=== PATIENT | female | born 1940 | race African-American/Black ===

== ENCOUNTER 2020-03-18 08:26 | Emergency (ER) | payer OTHER, SELFPAY ==
--- NOTE | ~2020-03-18 | XR_ITS ---
EXAMINATION: XR soft tissue neck EXAM DATE: 03/18/2020 09:18 INDICATION: Dislodged tracheostomy tube. TECHNIQUE: Soft tissue neck frontal and lateral projections. There is no prior study for comparison. FINDINGS: Tracheostomy tube appears to be in expected position (reportedly this is the outer cannula and patient could not get the insert in this morning). There is opacity of the airway above the trac heostomy tube. Lung apices are clear. Oropharyngeal airway is unremarkable. Probable small carotid ca lcifications. IMPRESSION: Tracheostomy tube appears in expected position. I discussed this with Bar Marquez DO at 03/18/2020 09:24 ENGINEER FIRST ASSISTANT. Reviewed, dictated and finalized at location A. NEER FIRST ASSISTANT
[2020-03-18 08:27] VITALS: BP 188/99; PULSE 90; RESP 18; TEMP 36.7; O2SAT 100
--- NOTE | 2020-03-18 08:49 | ED.GENADULT ---
HPI - General Adult General Chief complaint: Unspecified Stated complaint: Trach dislodged Source: patient Mode of arrival: ambulatory Limitations: no limitations History of Present Illness HPI narrative: A 79-year-old female presents to the emergency department with complaints of a dislodged trach. Patient states she was trying to clean it this morning when her trach became dislodged. Patient was not able to get it back and became panicked and came to the emergency department. She states that there was some bleeding associated with this. At this time patient is resting comfortably and states that she is breathing easily without her trach in. Related Data Home Medications Medication Instructions Recorded Confirmed aspirin 325 mg tablet 325 mg PO DAILY 01/12/19 12/28/19 ergocalciferol (vitamin D2) 1,250 50,000 unit PO MONTHLY 01/12/19 12/28/19 mcg (50,000 unit) capsule loratadine 10 mg tablet 10 mg PO DAILY 01/12/19 12/28/19 potassium chloride 20 mEq oral 20 meq PO BID 01/12/19 12/28/19 packet ticagrelor 90 mg tablet 90 mg PO Q12H 01/12/19 12/28/19 ferrous sulfate 325 mg (65 mg 325 mg PO BID 12/28/19 12/28/19 iron) tablet Allergies Allergy/AdvReac Type Severity Reaction Status Date / Time hydrochlorothiazide Allergy Severe face Verified 03/18/20 08:44 swelling Review of Systems Review of Systems: Narrative: CONSTITUTIONAL: Denies fever, chills, or sweats. EYES: Denies visual changes, redness, or discharge. ENT: Denies rhinorrhea, congestion, sore throat, or otalgia. CARDIOVASCULAR: Denies chest pain, palpitations, or edema. RESPIRATORY: Denies cough or dyspnea. GASTROINTESTINAL: Denies abdominal pain, nausea, vomiting, or diarrhea. GENITOURINARY: Denies dysuria or hematuria. SKIN: Denies rash or itching. MUSCULOSKELETAL: Denies back pain, joint pain, or myalgia. NEUROLOGIC: Denies headache, numbness, dizziness, or weakness. PSYCHIATRIC: Denies anxiety or depression. [facility] Past Medical History Medical History (Updated 03/18/20 @ 11:29 by Bar Marquez DO) Anxiety Arthritis Breast cancer Colon cancer Dementia HTN (hypertension) Myocardial infarction Tracheostomy tube present Surgical History Surgical History H/O left mastectomy H/O: hysterectomy Family History Family History Sibling Diabetes mellitus Patient's sister is in good health Family history of diabetes mellitus in first degree relative Mother Family history of malignant neoplasm of breast in first degree relative Other Family history of arthritis Hypertension Social History Social History Smoking status: Former smoker Smoking end date: 02/23/16 Alcohol intake: never Gender identity (if verbalized by the patient): Female Exam Narrative: Exam Narrative: GENERAL: Well-appearing, well-nourished, and in no acute distress. HEAD: Normocephalic, atraumatic. EYES: PERRLA and EOMI. ENT: Nares clear, no rhinorrhea or epistaxis. Mucous membranes moist. Oropharynx without tonsillar hypertrophy exudate or other lesions. Bilateral TMs pearly aviles nonbulging NECK: Supple. No adenopathy or masses. No carotid bruits or JVD. Tracheostoma with scant blood. CHEST: Clear to auscultation. No respiratory distress. No wheezes rales or rhonchi HEART: Regular rate and rhythm. No murmur heard. Normal peripheral pulses. ABDOMEN: Soft, nontender, nondistended, normal active bowel sounds. EXTREMITIES: Normal range of motion. No edema. SKIN: Warm, dry, no rash. NEURO: No focal deficits. Alert and oriented x3. PSYCH: Normal mood and affect. Course Reevaluation(s) Reevaluation #1: 2 attempts were made to replace the patient's trach tube. She instantly started coughing and became extremely anxious. Both times were unsuccessful. We will administer an anxiolytic and reattempt.
--- NOTE | 2020-03-18 09:45 | PC.NURSE ---
Dr. Marquez having trouble getting trach back in. Pt becoming very anxious. VORB for 2 mg versed to be given before next attempt
[2020-03-18] MEDS: MIDAZOLAM HCL (*CRX) 2 MG/2 ML VIAL IM (09:55)
[2020-03-18 10:46] VITALS: BP 184/86; PULSE 85; RESP 18; O2SAT 98
--- NOTE | 2020-03-18 10:46 | PC.NURSE ---
Dr. Marquez attempted to replace trach a few times with no success. calling susanna for consult
--- NOTE | 2020-03-18 11:36 | PC.NURSE ---
Pt to be transferred to [facility]
--- NOTE | 2020-03-18 11:43 | PC.NURSE ---
called [facility] for transportation. company declined. contacted [facility] accepted with an eta of 1200
--- NOTE | 2020-03-18 12:01 | PC.NURSE ---
[facility] has arrived
[2020-03-18 12:06] VITALS: BP 183/81; PULSE 87; RESP 18; O2SAT 99
== END 2020-03-18 12:08 | disposition short-term general hospital (02) ==
PROVIDERS: Emergency Provider Emergency Medicine; PCP Internal Medicine
DX: Z43.0 Encounter for attention to tracheostomy (principal); F41.9 Anxiety disorder, unspecified; M19.90 Unspecified osteoarthritis, unspecified site; Z85.3 Personal history of malignant neoplasm of breast; Z85.038 Personal history of other malignant neoplasm of large intestine; F03.90 Unspecified dementia, unspecified severity, without behavioral disturbance, psychotic disturbance, mood disturbance, and anxiety; I10 Essential (primary) hypertension; I25.2 Old myocardial infarction; Z90.12 Acquired absence of left breast and nipple; Z87.891 Personal history of nicotine dependence; Z79.82 Long term (current) use of aspirin
CPT/HCPCS: 70360; 96372; 99285; A9270; J2250

== ENCOUNTER 2020-06-19 13:58 | Emergency (ER) | payer OTHER, SELFPAY ==
[2020-06-19 14:00] VITALS: PULSE 80; O2SAT 99
[2020-06-19 14:30] VITALS: BP 135/41; PULSE 75; RESP 13; O2SAT 100
[2020-06-19 14:32] VITALS: BP 161/80; PULSE 89; RESP 20; TEMP 36.7; O2SAT 99
--- NOTE | 2020-06-19 14:52 | PC.NURSE ---
noticed pt fully dressed and walking with friend towards the waiting room. The friend states they are leaving and going to [facility]. The pt is shaking her head yes as they leave. Friend states we're outta here, going to [facility] to get a new trach placed .
--- NOTE | 2020-06-19 17:10 | ED.SOB ---
HPI - SOB/Dyspnea General Chief Complaint: Shortness of Breath/Dyspnea Stated Complaint: difficulty breathing, trach Time Seen by Provider: 06/19/20 14:09 Source: patient and family Mode of arrival: wheelchair Limitations: other (language, nonverbal due to trach) History of Present Illness HPI Narrative: This is a 79 year old female with history of tracheostomy who presents for evaluation of clogged trach. Patient presented via car with a family friend. She states her trach has been getting clogged. She has been attempted to suction at home but it continues to get clogged. They were riding in the car prior to arrival and she states it suddenly clogged . She denies cough, chest pain or sob. Her family member does report that she is panicking. Patient states she normally goes to [place] but [place] is the closest facility. She states her ENT doctor at [place] is due to change her trach. She states she has a complicated history with her trach and that no one should try to change it out. Patient denies fever or chills. Related Data Home Medications Medication Instructions Recorded Confirmed aspirin 325 mg tablet 325 mg PO DAILY 01/12/19 04/11/20 ergocalciferol (vitamin D2) 1,250 50,000 unit PO MONTHLY 01/12/19 04/11/20 mcg (50,000 unit) capsule loratadine 10 mg tablet 10 mg PO DAILY 01/12/19 04/11/20 potassium chloride 20 mEq oral 20 meq PO BID 01/12/19 04/11/20 packet ticagrelor 90 mg tablet 90 mg PO Q12H 01/12/19 04/11/20 ferrous sulfate 325 mg (65 mg 325 mg PO BID 12/28/19 04/11/20 iron) tablet Allergies Allergy/AdvReac Type Severity Reaction Status Date / Time hydrochlorothiazide Allergy Severe face Verified 04/11/20 10:05 swelling lisinopril Allergy Unknown Verified 06/19/20 14:34 Review of Systems Review of Systems: All systems reviewed & are unremarkable except as noted in HPI and below PMFSH Past Medical History Medical History (Updated 06/19/20 @ 17:16 by Azeb Resendez MD) Anxiety Arthritis Breast cancer Colon cancer Dementia HTN (hypertension) Myocardial infarction Tracheostomy tube present Surgical History Surgical History H/O left mastectomy H/O: hysterectomy Family History Family History Sibling Diabetes mellitus Patient's sister is in good health Family history of diabetes mellitus in first degree relative Mother Family history of malignant neoplasm of breast in first degree relative Other Family history of arthritis Hypertension Social History Social History Smoking end date: 02/23/16 Alcohol intake: never Gender identity (if verbalized by the patient): Female Exam Const: General: no acute distress and alert Orientation/consciousness: patient oriented x3 Eyes: EOM: EOMs intact bilaterally Neck: Other: trach in place with out inner cannula. Resp: Effort & Inspection: normal respiratory effort and no retractions Auscultation: clear to auscultation bilaterally Cardio: Rate: regular rate Rhythm: regular rhythm Heart sounds: no murmurs GI: GI Palp: Yes Soft to palpation, No Tenderness to palpation present (GI) and No Guarding due to palpation present (GI) Auscultation: normal bowel sounds Extrem: General: no pedal edema Psych: Mental Status: mental status grossly normal Affect: normal affect Course Reevaluation(s) Reevaluation #1: Nursing staff noticed patient walked out of ER. Patient previous to this stated that she felt better and she wanted to go home. She was agreeable to allow at least an xray but she left before anything else. Date: 06/19/20 Time: 15:00 Vital Signs Vital signs: Vital Signs Pulse Rate 80 06/19/20 14:00 Pulse Oximetry 99 06/19/20 14:00 Temperature 98.1 F 06/19/20 14:32 Pulse Rate 89 06/19/20 14:32 Respiratory Rat
== END 2020-06-19 14:55 | disposition left against medical advice (07) ==
PROVIDERS: Emergency Provider General Practice; PCP Internal Medicine
DX: J95.03 Malfunction of tracheostomy stoma (principal); M19.90 Unspecified osteoarthritis, unspecified site; F03.90 Unspecified dementia, unspecified severity, without behavioral disturbance, psychotic disturbance, mood disturbance, and anxiety; I10 Essential (primary) hypertension; I25.2 Old myocardial infarction; Z90.12 Acquired absence of left breast and nipple; Z85.3 Personal history of malignant neoplasm of breast; Z85.038 Personal history of other malignant neoplasm of large intestine; Z87.891 Personal history of nicotine dependence; Z79.82 Long term (current) use of aspirin
CPT/HCPCS: 99283

== ENCOUNTER 2020-07-05 14:27 | Outpatient (CLI) | payer OTHER, SELFPAY ==
--- NOTE | ~2020-07-05 | US_ITS ---
EXAMINATION: US renal BI DATE: 07/05/2020 14:51 INDICATION: Abnormal renal function tests TECHNIQUE: Multiple ultrasound grayscale images of the kidneys were obtained. COMPARISON: CT abdomen and pelvis dated 01/12/2016 FINDINGS: The right kidney measures 8.6 x 5.0 x 4.5 cm. The left kidney measures 8.5 x 4.0 x 3.7 cm. The kidney s demonstrate normal echogenicity. Again seen is mild cortical scarring resulting in a mildly lobular contour to the lower pole of the left kidney. There is no hydronephrosis in either kidney. No stone s identified. The bladder is normal. IMPRESSION: 1. Chronic mild cortical scarring at the lower pole of the left kidney. Otherwise normal kidneys wit h no hydronephrosis. Reviewed, dictated and finalized at location A. IMPRESSION: 1. Chronic mild cortical scarring at the lower pole of the left kidney. Otherw ise normal kidneys with no hydronephrosis.
== END 2020-07-05 14:28 ==
PROVIDERS: PCP Internal Medicine; Visit Provider Internal Medicine Nephrology
DX: R94.4 Abnormal results of kidney function studies (principal); R91.8 Other nonspecific abnormal finding of lung field
CPT/HCPCS: 76775

== ENCOUNTER → 2021-10-15 12:41 | Outpatient (CLI) | payer OTHER, SELFPAY ==
--- NOTE | ~2021-10-15 | MM_ITS ---
EXAMINATION: MM screening rafia RT w vernon HISTORY: Screening TECHNIQUE: Craniocaudal and mediolateral oblique 3-D tomosynthesis images were obtained and synthetic 2-D images were generated. CAD analysis was submitted and interpreted. COMPARISON: Comparison to multiple prior studies sequentially, with oldest reviewed study dated 03/19. BREAST PARENCHYMAL COMPOSITION: Breast composed of scattered areas of fibroglandular density FINDINGS: There is enlargement of a mass in the upper outer quadrant of the right breast posteriorly with a tubular appearance. There are no suspicious calcifications or architectural distortion. IMPRESSION: 1. Enlarging right breast mass, upper outer quadrant. 2. Additional mammographic views and possible breast ultrasound are recommended. BI-RADS Category 0: Incomplete: Needs additional imaging evaluation. Reviewed, dictated and finalized at location A. IMPRESSION: 1. Enlarging right breast mass, upper outer quadrant. 2. Additional mammographic views and possible breast ultrasound are recommended . BI-RADS Category 0: Incomplete: Needs additional imaging evaluation.
== END ==
PROVIDERS: PCP Internal Medicine; Visit Provider Internal Medicine
DX: Z12.31 Encounter for screening mammogram for malignant neoplasm of breast (principal); R92.8 Other abnormal and inconclusive findings on diagnostic imaging of breast
CPT/HCPCS: 77063; 77067

== ENCOUNTER 2021-11-07 15:55 | Emergency (ER) | payer OTHER, SELFPAY ==
--- NOTE | 2021-11-07 16:10 | PC.NURSE ---
After further discussing the patient's concerns after initially registering the patient the patient was seeking a mammogram. Her family member who is with her states that she has a history of breast CA and found a lump in her breast. [facility] appointment and wasn't able to be rescheduled until November. After confirming with Imaging that the hospital does not offer mammogram services it was communicated to the patient and her family member. They are going to call the PCP and possibly come back for evaluation at a later time.
== END 2021-11-07 16:10 | disposition left against medical advice (07) ==
LOC: ANHED 16:20
PROVIDERS: PCP Internal Medicine
DX: Z53.21 Procedure and treatment not carried out due to patient leaving prior to being seen by health care provider (principal)
CPT/HCPCS: 99199

== ENCOUNTER 2021-11-14 13:21 | Outpatient (CLI) | payer OTHER, SELFPAY ==
--- NOTE | ~2021-11-14 | MMUS_ITS ---
EXAMINATION: MM diagnostic rafia RT w vernon, US breast RT limited HISTORY: Right breast mass on screening mammogram TECHNIQUE: Additional 3-D tomosynthesis images of the right breast were performed and synthetic 2-D i mages were generated. CAD analysis was submitted and interpreted. High resolution limited right breas t ultrasound was performed. COMPARISON: 10/15/2021, 11/05/2016, 03/19/2016 FINDINGS: MAMMOGRAPHIC FINDINGS: There is a 2.6 x 0.8 cm circumscribed mass with gentle lobulations at the 12:00 location in the poste rior third of the upper breast at the 12:00 location 10 cm from the nipple. No suspicious calcificati on or architectural distortion are identified. The mass has increased in size since the comparison ex aminations. ULTRASOUND: There is a 1.4 x 1.0 x 0.5 cm oval, circumscribed, parallel, hypoechoic mass with no posterior featur es or internal vascularity at the 12:00 location 10 cm from the nipple. IMPRESSION: 1. Indeterminate right breast mass. 2. Ultrasound-guided biopsy is recommended. BI-RADS category 4, suspicious findings. Reviewed, dictated and finalized at location A. IMPRESSION: 1. Indeterminate right breast mass. 2. Ultrasound-guided biopsy is recommended. BI-RADS category 4, suspicious findings.
== END 2021-11-14 13:22 | disposition home or self-care (01) ==
LOC: ANHIMG 13:22
PROVIDERS: PCP Internal Medicine; Visit Provider Internal Medicine
DX: N63.0 Unspecified lump in unspecified breast (principal); R92.8 Other abnormal and inconclusive findings on diagnostic imaging of breast
CPT/HCPCS: 76642; 77061; 77065; G0279

== ENCOUNTER 2021-12-04 09:32 | Outpatient (CLI) | payer OTHER, SELFPAY ==
--- NOTE | ~2021-12-04 | MMUS_ITS ---
US breast biopsy RT w image, MM post biopsy invasive RT 12/04/2021 10:27 (accession [id number]), 12/04/2021 10:44 (accession [id number]) EXAMINATION: US GUIDED NEEDLE BIOPSY WITH VACUUM ASSISTANCE DATE: 12/04/2021 10:47 CDT INDICATION: Right breast mass seen on prior examination Ultrasound-guided core biopsy is requested t o evaluate for malignancy. TECHNIQUE AND FINDINGS: The risks and potential benefits of the procedure were discussed with the patient, and written inform ed consent was obtained. After sterile preparation of the right breast, 1% lidocaine was utilized fo r local anesthesia. 1% lidocaine with epinephrine was used for deep anesthesia. A 10G vacuum-assisted biopsy gun needle was advanced through to the outer edge of the region of inter est from a superior approach utilizing sonographic guidance. A total of 5 tissue core samples were o btained through the lesion. An Inrad tissue marker clip was then placed at the biopsy site. Hemostas is was achieved. The patient tolerated procedure well and there was no evidence of immediate complication. The patien t was given verbal instructions partly is from the department. Right breast mammograms to document t issue marker clip placement. The tissue samples were submitted to surgical pathology for histologic a nalysis. IMPRESSION: 1. Successful ultrasound-guided vacuum-assisted biopsy of right breast mass with tissue marker place ment. Please refer to pathology report for histologic analysis. Reviewed, dictated and finalized at location A. IMPRESSION: 1. Successful ultrasound-guided vacuum-assisted biopsy of right breast mass wi th tissue marker placement. Please refer to pathology report for histologic charlie lysis.
== END 2021-12-04 09:33 | disposition home or self-care (01) ==
LOC: ANHIMG 09:38
PROVIDERS: PCP Internal Medicine; Visit Provider Internal Medicine
DX: N63.0 Unspecified lump in unspecified breast (principal); R92.8 Other abnormal and inconclusive findings on diagnostic imaging of breast
CPT/HCPCS: 19083; 88305; A4648

== ENCOUNTER 2022-08-06 14:55 | Outpatient (CLI) | payer OTHER, SELFPAY ==
--- NOTE | ~2022-08-06 | XR_ITS ---
XR knee LT 3V 08/06/2022 15:10 Indication: Left knee pain Procedure: 3 views left knee Comparison: No prior studies for comparison. Findings: No fracture, subluxation location. There is moderate tricompartment osteoarthritis. No join t effusion. No foreign bodies. Osteopenia. 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 Reviewed, dictated and finalized at location L. 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
== END 2022-08-06 14:56 ==
LOC: MICIMG 14:56
PROVIDERS: PCP Family Medicine; Visit Provider Family Medicine
DX: M17.12 Unilateral primary osteoarthritis, left knee (principal)
CPT/HCPCS: 73562

== ENCOUNTER 2023-02-08 09:04 | Emergency (ER) | payer OTHER, SELFPAY ==
--- NOTE | ~2023-02-08 | CT_ITS ---
CT head without contrast Indication: Head injury Technique: Serial scans were obtained through the brain without the administration of contrast. Dose reduction technique was used on this scan by utilizing automated exposure control and iterative recon struction technique. The dose-length product (DLP) was 605.33 mGy-cm. Findings: There is no evidence of intracranial hemorrhage, mass lesion, or acute infarct. The ventri cles and subarachnoid spaces are dilated, consistent with mild atrophy. Low attenuation regions are seen within the periventricular white matter bilaterally, likely representing changes from chronic mi crovascular ischemic disease. There is no evidence of edema, mass effect or midline shift. The visu alized paranasal sinuses and mastoid air cells are clear. There is focal soft tissue swelling in the left frontal scalp. Impression: No intracranial hemorrhage, mass, or acute infarct. Atrophy and chronic white matter changes, as above. Focal soft tissue swelling in the left frontal scalp. Reviewed, dictated and finalized at [facility]. FINISHER Impression: No intracranial hemorrhage, mass, or acute infarct. Atrophy and chronic white matter changes, as above. Focal soft tissue swelling in the left frontal scalp.
[2023-02-08 09:06] VITALS: BP 118/61; PULSE 54; RESP 16; TEMP 36.9; O2SAT 100
--- NOTE | 2023-02-08 09:32 | ED.FALL ---
HPI - Fall General Chief Complaint: Fall Stated Complaint: FELL DOWN 2 STEPS, HI Time Seen by Provider: 02/08/23 09:07 History of Present Illness HPI Narrative: patient is an 82-year-old female who presents ER status post fall. She tripped over her dog and fell down 2 steps. She struck her head on the ground. No LOC. She is not on any blood thinners. History is somewhat limited due to her tracheostomy. She moves all extremities additional complaints. There is a small laceration to the left for him. Related Data Home Medications Medication Instructions Recorded Confirmed aspirin 325 mg tablet 325 mg PO DAILY 01/12/19 12/22/22 loratadine 10 mg tablet 10 mg PO DAILY 01/12/19 12/22/22 potassium chloride 20 mEq oral 20 meq PO BID 01/12/19 12/22/22 packet (Klor-Con) ticagrelor 90 mg tablet (Brilinta) 90 mg PO Q12H 01/12/19 12/22/22 ferrous sulfate 325 mg (65 mg 325 mg PO BID 12/28/19 12/22/22 iron) tablet ergocalciferol (vitamin D2) 1,250 1,250 mcg PO MONTHLY 03/26/22 12/22/22 mcg (50,000 unit) capsule Allergies Allergy/AdvReac Type Severity Reaction Status Date / Time hydrochlorothiazide Allergy Severe face Verified 02/08/23 09:19 swelling lisinopril Allergy Unknown Verified 02/08/23 09:19 Review of Systems Review of Systems: ROS unobtainable: Yes unobtainable due to medical condition PMFSH Past Medical History Medical History (Updated 02/08/23 @ 09:48 by Wade Saldivar MD) Anxiety Arthritis Breast cancer Colon cancer Dementia H/O cardiac arrest HTN (hypertension) Myocardial infarction STEMI (ST elevation myocardial infarction) Tracheostomy tube present Surgical History Surgical History H/O left mastectomy H/O: hysterectomy Family History Family History Sibling Diabetes mellitus Patient's sister is in good health Family history of diabetes mellitus in first degree relative Mother Family history of malignant neoplasm of breast in first degree relative Other Family history of arthritis Hypertension Social History Social History (Reviewed 01/26/23 @ 14:36 by STEVEN Gonzales Smoking packs per day: 2 Smoking cigarettes per day: 40.0 Years smoked: 30 Smoking pack-years: 60.00 Smoking status: Former smoker Tobacco type: cigarettes Smoking end date: 02/23/16 Alcohol intake: never Substance use: never Substance use type: does not use Gender identity (if verbalized by the patient): Female Exam Narrative: GENERAL: Well-appearing, well-nourished, and in no acute distress. HEAD: Normocephalic, Soft tissue swelling left forehead with 1 cm laceration. EYES: PERRL and EOMI. ENT: Mucous membranes moist. NECK: Supple. Tracheostomy present CHEST: Clear to auscultation. No respiratory distress. HEART: Regular rate and rhythm. Normal peripheral pulses. EXTREMITIES: Normal range of motion. No edema. NEURO: awake alert and acting appropriately. Course Vital Signs Vital signs: Vital Signs Temperature 98.4 F 02/08/23 09:06 Pulse Rate 54 L 02/08/23 09:06 Respiratory Rate 16 02/08/23 09:06 Blood Pressure 118/61 02/08/23 09:06 Pulse Oximetry 100 02/08/23 09:06 Oxygen Delivery Room Air 02/08/23 09:06 Temperature 98.4 F 02/08/23 09:06 Pulse Rate 54 L 02/08/23 09:06 Respiratory Rate 16 02/08/23 09:06 Blood Pressure 118/61 02/08/23 09:06 Pulse Oximetry 100 02/08/23 09:06 Oxygen Delivery Room Air 02/08/23 09:06 Procedures Laceration Laceration 1: Date: 02/08/23 Time: 09:45 Site: face Side (If applicable): left Size (cm): 1 Description: irregular Depth: simple, single layer Local Anesthetic: lidocaine 1% and with epi Amount of anesthesia used (mL): 1 Pre-repair: irrigated ====== Skin Level ====== Skin la
[2023-02-08 10:07] VITALS: BP 125/47; PULSE 53; RESP 18; O2SAT 100
== END 2023-02-08 10:14 | disposition home or self-care (01) ==
LOC: ANHED 10:01
PROVIDERS: Emergency Provider Emergency Medicine; PCP Family Medicine
DX: S01.81XA Laceration without foreign body of other part of head, initial encounter (principal); F41.9 Anxiety disorder, unspecified; M19.90 Unspecified osteoarthritis, unspecified site; I10 Essential (primary) hypertension; I25.2 Old myocardial infarction; F03.90 Unspecified dementia, unspecified severity, without behavioral disturbance, psychotic disturbance, mood disturbance, and anxiety; Z85.3 Personal history of malignant neoplasm of breast; W10.9XXA Fall (on) (from) unspecified stairs and steps, initial encounter
CPT/HCPCS: 12011; 70450; 99284

== ENCOUNTER 2024-04-22 03:19 | Emergency (ER) | payer OTHER, SELFPAY ==
[2024-04-22 03:18] VITALS: BP 127/77; PULSE 90; RESP 18; TEMP 36.7; O2SAT 100
--- NOTE | 2024-04-22 03:46 | ED.FALL ---
HPI - Fall General Chief Complaint: Fall Stated Complaint: GLF. right leg pain Time Seen by Provider: 04/22/24 03:27 History of Present Illness HPI Narrative: 83-year-old female with a past medical history including colon carcinoma, renal cell carcinoma, subglottic stenosis status tracheostomy. Patient presents from her detention facility for not witnessed fall. Patient is not ambulatory by herself and was found on the ground by staff members today. She was not any apparent distress, unclear how she fell, she is alert oriented at baseline but only communicates and yes or no head not and does not speak. She is awake and alert, nodding yes or no to all appropriate questions. Not any blood thinner medications per penitentiary report. No loss of consciousness reported by patient, no signs of evidence or trauma. She is complaining of pain in her head and right ankle pain. No obvious injury. She normally wears 8L blow-by oxygen from her tracheostomy. Related Data Home Medications ?Medication ?Instructions ?Recorded ?Confirmed ?Last Taken ?Type aspirin 325 mg tablet 325 mg PO DAILY 01/12/19 12/22/22 Unknown History loratadine 10 mg tablet 10 mg PO DAILY 01/12/19 12/22/22 Unknown History potassium chloride 20 mEq oral 20 meq PO BID 01/12/19 12/22/22 Unknown History packet (Klor-Con) ticagrelor 90 mg tablet (Brilinta) 90 mg PO Q12H 01/12/19 12/22/22 Unknown History ferrous sulfate 325 mg (65 mg 325 mg PO BID 12/28/19 12/22/22 Unknown History iron) tablet ergocalciferol (vitamin D2) 1,250 1,250 mcg PO MONTHLY 03/26/22 12/22/22 Unknown History mcg (50,000 unit) capsule metoprolol succinate 50 mg mg PO 08/12/23 Unknown History tablet,extended release 24 hr Allergies Allergy/AdvReac Type Severity Reaction Status Date / Time hydrochlorothiazide Allergy Severe face Verified 04/22/24 03:25 swelling chlorhexidine Allergy Intermediate Unknown Verified 04/22/24 03:25 lisinopril Allergy Unknown Verified 04/22/24 03:25 Review of Systems Review of Systems: As reviewed above [facility] Past Medical History Medical History Tracheostomy tube present Breast cancer Anxiety Arthritis Colon cancer Myocardial infarction HTN (hypertension) Dementia H/O cardiac arrest STEMI (ST elevation myocardial infarction) Surgical History Surgical History H/O: hysterectomy H/O left mastectomy Family History Family History Sibling Diabetes mellitus Patient's sister is in good health Family history of diabetes mellitus in first degree relative Mother Family history of malignant neoplasm of breast in first degree relative Other Family history of arthritis Hypertension Social History Social History Smoking packs per day: 2 Smoking cigarettes per day: 40.0 Years smoked: 30 Smoking pack-years: 60.00 Smoking status: Former smoker Tobacco type: cigarettes Smoking end date: 02/23/16 Alcohol intake: never Substance use: never Substance use type: does not use Gender identity (if verbalized by the patient): Female Exam Narrative: GENERAL: Elderly, thin, frail, not in any acute distress HEAD: [Normocephalic, atraumatic.] EYES: [PERRLA and EOMI.] ENT: Tracheostomy is clean and dry, blow-by oxygen in place NECK: Supple. CHEST: [Clear to auscultation. No respiratory distress.] HEART: [Regular rate and rhythm]. No murmur heard. [Normal peripheral pulses.] ABDOMEN: [Soft, nondistended], [nontender], [No rigidity or guarding] EXTREMITIES: Able to wiggle the toes, move both upper extremities equally. Does not ambulate normally. Full range of motion of the ankle. No tenderness with palpation. No cervical, thoracic or lumbar spinal tenderness or palpable defects. No obvious injury to the head SKIN: Warm, dry, no rash. NEURO: [No focal deficits]. Alert and oriented [x3.] PSYCH: [Normal mood and affect.] Course Vital Signs Vital signs: Vital Signs Temperature 36.7 C 04/22/24 03:18 Pulse Rate 90 04/22/24 03:18 Respiratory Rate 18 04/22/24 03:18 Blood Pressure 127/77 04/22/24 03:18 Pulse Oximetry 100 04/22/24 03:18 Oxygen Delivery Trach Collar 04/22/24 03:18 Oxygen Flow Rate 8 04/22/24 03:18 Temperature 36.7 C 04/22/24 03:18 Pulse Rate 90 04/22/24 03:18 Respiratory Rate 18 04/22/24 03:18 Blood Pressure 127/77 04/22/24 03:18 Pulse Oximetry 100 04/22/24 03:18 Oxygen Delivery Trach Collar 04/22/24 03:18 Oxygen Flow Rate 8 04/22/24 03:18 MDM - Fall MDM Narrative Medical decision making narrative: 83-year-old female presenting from her detention facility for an unwitnessed fall. She nods yes and no to answer questions, does not speak. She has a history of subglottic stenosis with a tracheostomy in uses 8 L normally. She has normal vital signs, no tachycardia, fever, hypoxia. No tachypnea. She has no evidence of trauma but does note that she did hit her head, no blood thinner use. She also nod yes to questions about pain in her ankle. X-rays were obtained a right ankle and CT of the cervical spine CT of the head was obtained given her age and risk factors. She is not requesting any pain medications at this time. She expressed desire to go back to her facility. CT images were ordered and patient could be safely discharged if there are no remarkable findings. CT head shows no evidence for of any acute intracranial abnormality. CT cervical spine shows no evidence of any fractures or traumatic subluxations. No high-grade stenosis. Ankle x-ray shows a heel spur but no acute traumatic injury per my interpretation. Patient has been hemodynamically stable here and without complaint, safe for discharge back to facility. Medical Records Attestation: I reviewed the patient's medical records. Imaging Data Attestation: I personally reviewed and interpreted this imaging study as follows: My impression: No acute traumatic findings Discharge Plan Discharge Clinical Impression: Unwitnessed fall, History of tracheal stenosis Patient Disposition: NH Longterm/Asst Living Condition: Stable Instructions: Antibiotic Form Additional Instructions: Follow-up with your regular doctor. Return with any new concerns. Your CT scan and x-ray showed no traumatic injuries. Patient Language: [place] Prescriptions: No Action metoprolol succinate 50 mg tablet extended release 24 hr PO ferrous sulfate 325 mg (65 mg iron) tablet 325 mg PO BID ergocalciferol (vitamin D2) 1,250 mcg (50,000 unit) capsule 1,250 mcg PO MONTHLY aspirin 325 mg tablet 325 mg PO DAILY Brilinta 90 mg tablet 90 mg PO Q12H potassium chloride [Klor-Con] 20 mEq packet 20 meq PO BID loratadine 10 mg tablet 10 mg PO DAILY memantine 5 mg tablet See Rx Instructions .ROUTE .COMPLEX Qty: 60 1RF Dose Instruction: TAKE 1 TABLET BY MOUTH TWICE A DAY Rx Instructions: TAKE 1 TABLET BY MOUTH TWICE A DAY metoprolol tartrate 25 mg tablet 25 mg PO Q12H Qty: 180 0RF dicyclomine 20 mg tablet See Rx Instructions .ROUTE .COMPLEX Qty: 360 1RF Dose Instruction: TAKE ONE TABLET BY MOUTH FOUR TIMES A DAY Rx Instructions: TAKE ONE TABLET BY MOUTH FOUR TIMES A DAY atorvastatin 40 mg tablet 40 mg PO DAILY Qty: 90 1RF losartan 50 mg tablet See Rx Instructions .ROUTE .COMPLEX Qty: 90 0RF Dose Instruction: TAKE 1 TABLET BY MOUTH EVERY DAY Rx Instructions: TAKE 1 TABLET BY MOUTH EVERY DAY buspirone 15 mg tablet 15 mg PO BID Qty: 180 1RF amlodipine 10 mg tablet See Rx Instructions .ROUTE .COMPLEX Qty: 90 1RF Dose Instruction: TAKE 1 TABLET BY MOUTH EVERY DAY Rx Instructions: TAKE 1 TABLET BY MOUTH EVERY DAY donepezil 10 mg tablet See Rx Instructions .ROUTE .COMPLEX Qty: 90 1RF Dose Instruction: TAKE 1 TABLET BY MOUTH EVERY DAY Rx Instructions: TAKE 1 TABLET BY MOUTH EVERY DAY hydrocodone-acetaminophen 10-325 mg tablet 1 tablet PO QID PRN (Reason: pain) Qty: 120 0RF Follow-up/Referrals: Leon Leslie MD [Primary Care Provider] - Stand Alone Forms: Senior Living Discharge Time of Disposition: 05:44
[2024-04-22 05:47] VITALS: BP 134/72; PULSE 90; RESP 16; TEMP 36.6; O2SAT 98
[2024-04-22 07:46] VITALS: BP 138/64; PULSE 87; RESP 20; O2SAT 99
[2024-04-22 12:35] VITALS: BP 119/90; PULSE 95; RESP 21; O2SAT 100
--- NOTE | 2024-04-22 16:25 | PCRCNOTE ---
RT called to ED to place patient's trach back in. Patient had thick secretions stuck in her trach cannula that resulted in patient coughing and trach becoming dislodged. She has a cuffless trach that has no inner cannula. She communicates by writing on a communication board and states she has had her trach for a long time and sometimes has it out and just has oxygen on over her stoma. Area around stoma is crusty and RT attempted to clean it but didn't want it to bleed so only some of the scabs came off. Trach cleaned with sterile water. After RT placed trach back in, patient was suctioned and patient produced thick white secretions. Patient shakes her head yes that she feels much better. RN and Dr. Saldivar notified that trach is back in and patient is stable.
--- NOTE | 2024-04-22 18:02 | PC.NURSE ---
1615: walked into the patients room to find her trach dislodged, patient in no respiratory distress, and o2 saturations 100% with o2 collar in place. patient states that it happens sometimes. respiratory called immediately, ERP at bedside along with meteorologist in charge
--- NOTE | 2024-04-22 18:03 | PC.NURSE ---
made attempt to call family members to let them know that she was transported back to her facility, no one answered. will attempt to call again. made attempt to call facility to let them know the patient was being transported. no answer. report called by prior nurse.
== END 2024-04-22 18:01 ==
PROVIDERS: Emergency Provider Student in an Organized Health Care Education/Training Program; PCP Family Medicine
DX: S99.911A Unspecified injury of right ankle, initial encounter (principal); S09.90XA Unspecified injury of head, initial encounter; J38.6 Stenosis of larynx; Z99.81 Dependence on supplemental oxygen; Z93.0 Tracheostomy status; I25.2 Old myocardial infarction; I10 Essential (primary) hypertension; F03.90 Unspecified dementia, unspecified severity, without behavioral disturbance, psychotic disturbance, mood disturbance, and anxiety; M19.90 Unspecified osteoarthritis, unspecified site; Z85.3 Personal history of malignant neoplasm of breast; Z85.038 Personal history of other malignant neoplasm of large intestine; Z85.528 Personal history of other malignant neoplasm of kidney; Z87.891 Personal history of nicotine dependence; Z90.12 Acquired absence of left breast and nipple; Z90.710 Acquired absence of both cervix and uterus; Z79.02 Long term (current) use of antithrombotics/antiplatelets; Z79.899 Other long term (current) drug therapy; W19.XXXA Unspecified fall, initial encounter; M47.812 Spondylosis without myelopathy or radiculopathy, cervical region; R91.1 Solitary pulmonary nodule; J90 Pleural effusion, not elsewhere classified
CPT/HCPCS: 70450; 72125; 73610; 99284

== ENCOUNTER 2024-05-06 19:56 | Emergency (ER) | payer OTHER, SELFPAY ==
[2024-05-06 20:09] VITALS: BP 156/73; PULSE 80; RESP 15; TEMP 36.7; O2SAT 95
--- NOTE | 2024-05-06 21:11 | ED.GENADULT ---
HPI - General Adult General Chief complaint: Unspecified Stated complaint: dislodged trach Time Seen by Provider: 05/06/24 21:06 Source: RN notes reviewed Mode of arrival: EMS Limitations: physical limitation History of Present Illness HPI narrative: Patient presents from custodial with dislodged trach. It is reported that a piece on the flange was broken and staff at attempted to remove it and super glue it away from the patient's skin but when they attempted to replace it they were unable to. Patient is nonverbal but can communicate by writing. No other complaints. Related Data Home Medications ?Medication ?Instructions ?Recorded ?Confirmed ?Last Taken ?Type aspirin 325 mg tablet 325 mg PO DAILY 01/12/19 12/22/22 Unknown History loratadine 10 mg tablet 10 mg PO DAILY 01/12/19 12/22/22 Unknown History potassium chloride 20 mEq oral 20 meq PO BID 01/12/19 12/22/22 Unknown History packet (Klor-Con) ticagrelor 90 mg tablet (Brilinta) 90 mg PO Q12H 01/12/19 12/22/22 Unknown History ferrous sulfate 325 mg (65 mg 325 mg PO BID 12/28/19 12/22/22 Unknown History iron) tablet ergocalciferol (vitamin D2) 1,250 1,250 mcg PO MONTHLY 03/26/22 12/22/22 Unknown History mcg (50,000 unit) capsule metoprolol succinate 50 mg mg PO 08/12/23 Unknown History tablet,extended release 24 hr Allergies Allergy/AdvReac Type Severity Reaction Status Date / Time hydrochlorothiazide Allergy Severe face Verified 05/06/24 20:57 swelling chlorhexidine Allergy Intermediate Unknown Verified 05/06/24 20:57 lisinopril Allergy Unknown Verified 05/06/24 20:57 [facility] Past Medical History Medical History Acute candidiasis of vulva and vagina Depression, unspecified Chronic combined systolic (congestive) and diastolic (congestive) heart failure Ventricular fibrillation Atherosclerotic heart disease of [place] coronary artery without angina pectoris Alzheimer's disease, unspecified Hyperlipidemia, unspecified Unspecified severe protein-calorie malnutrition Tracheostomy tube present Breast cancer Anxiety Arthritis Colon cancer Myocardial infarction HTN (hypertension) Dementia H/O cardiac arrest STEMI (ST elevation myocardial infarction) Surgical History Surgical History H/O: hysterectomy H/O left mastectomy Family History Family History Sibling Diabetes mellitus Patient's sister is in good health Family history of diabetes mellitus in first degree relative Mother Family history of malignant neoplasm of breast in first degree relative Other Family history of arthritis Hypertension Social History Social History Social History: Full Code per custodial documentation including POLST signed 04/19/24 listing YES CPR Smoking packs per day: 2 Smoking cigarettes per day: 40.0 Years smoked: 30 Smoking pack-years: 60.00 Smoking status: Former smoker Tobacco type: cigarettes Smoking end date: 02/23/16 Alcohol intake: never Substance use: never Substance use type: does not use Living arrangements: custodial Additional living arrangements comments: [facility] [place] Gender identity (if verbalized by the patient): Female Exam Narrative: GENERAL: Well-appearing, well-nourished, and in no acute distress. HEAD: Normocephalic, atraumatic. EYES: Non injected, non icteric ENT: Nares clear, no epistaxis. NECK: Supple. Trach site exposed but with blow by air. Trach site with thick secretions/mucous. CHEST: No respiratory distress. Nonlabored HEART: Regular rate and rhythm. . ABDOMEN: Soft, nondistended. SKIN: Warm, dry, no rash. NEURO: Alert but non verbal PSYCH: Normal mood and affect. Course Vital Signs Vital signs: Vital Signs Temperature 98.1 F 05/06/24 20:09 Pulse Rate 80 05/06/24 20:09 Respiratory Rate 15 05/06/24 20:09 Blood Pressure 156/73 H 05/06/24 20:09 Pulse Oximetry 95 05/06/24 20:09 Oxygen Delivery Trach Collar 05/06/24 20:09 Oxygen Flow Rate 6 05/06/24 20:09 Temperature 98.1 F 05/06/24 20:09 Pulse Rate 68 05/07/24 06:00 Respiratory Rate 16 05/07/24 06:00 Blood Pressure 150/79 H 05/07/24 06:00 Pulse Oximetry 100 05/07/24 06:00 Oxygen Delivery Trach Collar 05/06/24 20:09 Oxygen Flow Rate 6 05/06/24 20:09 Medical Decision Making MDM Narrative Medical decision making narrative: Trach dependent patient presents after it was noted to have a broken flange and staff at custodial attempted to remove it and fix it with super glue away from the patient's body. However, upon attempting to reinsert it, they were unable to. In the emergency department she is afebrile vital signs notable for hypertension. Patient is nonverbal but able to communicate that she uses a trach size 10. Patient not in respiratory distress. She does have thick secretions around site of her trach. These are suctioned using [employer] and trach replaced at bedside by myself and RT. Balloon inflated with 10cc air as per RT recommendations. Secured by RT. Patient does have some coughing fits around the time of insertion under shortly thereafter. RT performs flexible suctioning and patient returns to baseline. She remains resting comfortably, saturating appropriately without further subsequent coughing episodes. Stable for discharge back to facility. Patient pending transportation. Vital Signs Vital Signs: Vital Signs Temperature 98.1 F 05/06/24 20:09 Pulse Rate 80 05/06/24 20:09 Respiratory Rate 15 05/06/24 20:09 Blood Pressure 156/73 H 05/06/24 20:09 Pulse Oximetry 95 05/06/24 20:09 Oxygen Delivery Trach Collar 05/06/24 20:09 Oxygen Flow Rate 6 05/06/24 20:09 Temperature 98.1 F 05/06/24 20:09 Pulse Rate 68 05/07/24 06:00 Respiratory Rate 16 05/07/24 06:00 Blood Pressure 150/79 H 05/07/24 06:00 Pulse Oximetry 100 05/07/24 06:00 Oxygen Delivery Trach Collar 05/06/24 20:09 Oxygen Flow Rate 6 05/06/24 20:09 Discharge Plan Discharge Clinical Impression: Encounter for tracheostomy tube change Patient Disposition: NH Shelter/Asst Living Condition: Stable Instructions: Antibiotic Form, Tracheostomy Care (ED) Additional Instructions: Trach was changed and patient remains stable. Follow-up with patient's primary care physician or facility vp medical. Return to the emergency department with any new or worsening symptoms Patient Language: [place] Citizen Prescriptions: No Action metoprolol succinate 50 mg tablet extended release 24 hr PO ferrous sulfate 325 mg (65 mg iron) tablet 325 mg PO BID ergocalciferol (vitamin D2) 1,250 mcg (50,000 unit) capsule 1,250 mcg PO MONTHLY aspirin 325 mg tablet 325 mg PO DAILY Brilinta 90 mg tablet 90 mg PO Q12H potassium chloride [Klor-Con] 20 mEq packet 20 meq PO BID loratadine 10 mg tablet 10 mg PO DAILY memantine 5 mg tablet See Rx Instructions .ROUTE .COMPLEX Qty: 60 1RF Dose Instruction: TAKE 1 TABLET BY MOUTH TWICE A DAY Rx Instructions: TAKE 1 TABLET BY MOUTH TWICE A DAY metoprolol tartrate 25 mg tablet 25 mg PO Q12H Qty: 180 0RF dicyclomine 20 mg tablet See Rx Instructions .ROUTE .COMPLEX Qty: 360 1RF Dose Instruction: TAKE ONE TABLET BY MOUTH FOUR TIMES A DAY Rx Instructions: TAKE ONE TABLET BY MOUTH FOUR TIMES A DAY atorvastatin 40 mg tablet 40 mg PO DAILY Qty: 90 1RF losartan 50 mg tablet See Rx Instructions .ROUTE .COMPLEX Qty: 90 0RF Dose Instruction: TAKE 1 TABLET BY MOUTH EVERY DAY Rx Instructions: TAKE 1 TABLET BY MOUTH EVERY DAY buspirone 15 mg tablet 15 mg PO BID Qty: 180 1RF amlodipine 10 mg tablet See Rx Instructions .ROUTE .COMPLEX Qty: 90 1RF Dose Instruction: TAKE 1 TABLET BY MOUTH EVERY DAY Rx Instructions: TAKE 1 TABLET BY MOUTH EVERY DAY donepezil 10 mg tablet See Rx Instructions .ROUTE .COMPLEX Qty: 90 1RF Dose Instruction: TAKE 1 TABLET BY MOUTH EVERY DAY Rx Instructions: TAKE 1 TABLET BY MOUTH EVERY DAY hydrocodone-acetaminophen 10-325 mg tablet 1 tablet PO QID PRN (Reason: pain) Qty: 120 0RF Follow-up/Referrals: Leon Leslie MD [Primary Care Provider] - Stand Alone Forms: Intermediate Discharge Time of Disposition: 22:07
--- OUTSIDE RECORDS SUMMARY | 2024-05-06 21:19 | XMS_ITS ---
Author Organization [facility] [id number] Address [address] [place] [address] Care Team Providers Care It Business Analyst Name Role Phone Leon Leslie MD Primary Care Provider [phone] Elvie Drake MD Unavailable Migel Torres MD Unavailable [phone] Active Problems Problem Noted Date Diagnosed Date Perihepatic fluid collection 02/23/2024 Assessment & Plan (03/07/2024 12:56 PM BOBBIN FIXER): Patient is a 83 y.o. 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 Bovis bacteremia s/p treatment c/b CDI here with failure to thrive, found to have empyema and intraabdominal abscess. She was admitted on 02/22/2024 and ID was consulted on 02/28/2024 for antibiotic recommendations. During this admission, she presented with with worsening R sided empyema and perihepatic abscess. chest tube placement on February 23, with cultures growing Pseudomonas aeruginosa. She had underwent abdominal drain placement with Interventional Radiology on February 24 culture growing Pseudomonas aeruginosa (with identical susceptibility pattern), Citrobacter koseri, and mixed microorganisms. After discussion with pharmacy, we elected to use high dose cipro given her retained early small bowel based and ID provided final recommendations on 02/27 indicating Cipro and metro for at least three weeks with repeat imaging prior to stopping antibiotics (around 03/15/2024). Results: -Abdominal aspirate 03/18/2023: kallie albicans -abdominal abscess 01/18: pseudomonas aeruginosa, enterococcus faecalis, kallie albicans, mixed aerobic and anaerobic micro -Right chest pleural fluid 01/23: NG -CT C/A/P 01/23: decrease in size of R subphrenic fluid/air collection after placement of new RUQ drainage tube & removal of prior drainage catheter ... The trace extraluminal gas seen on this study is in the same location of this prior leak. Stable appearance of large R loculated pleural effusion and associated atelectasis with mucous plugging of the atelectatic lung. Stable duodenitis that may be 2/2 nearby inflammatory changes from bowel leak/subphrenic collection. -CT 02/22/2024: New pleural thickening and enhancement adjacent to a loculated RLL fluid and gas collection, compatible with empyema... suspicion for communication to the right perihepatic collection of gas. 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 Small fluid and gas collection along the distal R psoas in the RLQ, similarly arising from small bowel proximal to the enterocolic anastomosis -Blood cultures 02/23/2024: NG -RUL pleural fluid 2: pseudomonas aeruginosa -Hepatic abscess 02/24: pseudomonas aeruginosa, citrobacter koseri, mixed gram positive and gram negative micro -CT C/A/P 02/28: R chest tube placement w/ decrease in size of fluid and gas collection c/w decreased empyema. Persistent residual collection. Placement of RUQ drain with substantial decrease in perihepatic fluid/gas collection. No extraluminal contrast to suggest leak. Patient was seen yesterday as it was noted no cipro had been given since 03/03. Yesterday patient reporting no issues with taking the PO antibiotics. On discussion with primary team today, patient is refusing to take the ciprofloxacin. Would recommend cefepime 2g IV Q12H as an alternative. Reviewed ID involvement in care including antibiotic plan. Asked patient about the ciprofloxacin and barriers to taking the medication. Patient denies GI upset or intolerance. Reports the pill is too big and she is not interested in trying the medication if cut in half. Discussed transitioning to cefepime. Patient has taken this medication in the past without issues. Discussed common side effects with patient and explained this medication was chosen over Zosyn that was previously given due to the dosing frequency. Questions answered as needed and patient agreeable to plan. Recommendations: -Continue metronidazole. -Patient has been declining ciprofloxacin. Recommend Cefepime 2g IV Q12H as an alternative. -While on the IV antibiotics, please obtain at least a weekly cbc with diff and CMP for antibiotic toxicity monitoring. -Antibiotics should be continued until she has had repeat imaging and is seen by ID. She is currently scheduled to see ID on 03/15 -If plans to d/c to LTAC, please have LTAC consult ID for antibiotic assessment -Thank you for allowing us to participate in the care of this patient. For questions or concerns, please do not hesitate to reach out. IV infiltration 12/30/2023 Assessment & Plan (12/30/2023 4:27 PM BOBBIN FIXER): IV infiltrated while running ferrous gluconate, subsequently developed localized edema and some tenderness around the area. Monitored for several hours inpatient to observe signs of progression however no significant complications occured. No skin necrosis, no erythema, no significant tenderness, no numbness or tingling in the arm or hand, no functional limitations. Discussed with inpatient pharmacy team who could not find any data regarding possible medication interventions. Treated with cold packs while in the hospital with improvement, return precaution given before discharge to contact providers and return to the emergency department if any of the above complications developed. Metabolic acidosis, normal anion gap (NAG) 12/28 Assessment & Plan (12/29/2023 3:42 PM BOBBIN FIXER): CO2 15 with AG 10; suspect 2/2 PETE in the setting of anemia. Improving with improved PETE and Hgb - monitor BMP Altered mental status 12/29/2023 Assessment & Plan (12/30/2023 4:24 PM BOBBIN FIXER): Per [id number], patient's mental status altered this afternoon with intermittent reaching for things that were not there. CT head without acute process. Appropriately answering yes/no questions and exam is non-focal. May be some delirium iso anemia, other metabolic derangements. Has underlying hx of dementia, at time of DC AOx4 - continue home donepezil, buspar, mirtazipine Anemia 12/28/2023 Assessment & Plan (12/30/2023 4:24 PM BOBBIN FIXER): Presenting with hemoglobin of 5.5. Although patient has not noticed blood per rectum, has known colonic mass with laboratory findings of MARIANA without c/f hemolysis and no other appreciable source of bleed. Prior EGD without upper GI source. lDHC, hapto, retic, bili WNL. Iron studies consistent with MARINAA Likely slow oozing from known mass which already has OP operative intervention planned - Hgb stable a after transfusions and no obvious signs of bleeding, plan to discharge home today with outpatient surgery as previously scheduled on 01/05. Patient will obtain repeat CBC earlier in the week prior to her surgery to ensure that anemia has not recurred prior to OR date - Home protonix - Ordered 1 dose of IV ferrous gluconate while inpatient due to iron deficiency anemia, however during infusion IV infiltrated with edema and some pain around arm however improved and no significant skin changes, necrosis, MSK or neurological concerns developed while in the hospital thereafter. - will start oral iron supplements at home. History of breast cancer 12/07/2023 Family history of breast cancer 12/07/2023 History of renal cell cancer 12/07/2023 Malignant neoplasm of colon 11/24/2023 Adenocarcinoma of transverse colon 10/23/2023 Assessment & Plan (12/30/2023 4:22 PM BOBBIN FIXER): Recent admission for anemia at which time colonoscopy revealed partially obstruction mass in the transverse colon c/w adenocarcinoma and with staging CT A/P showing enlarged mesenteric lymph nodes and indeterminate RLL nodule. Evaluated by oncology and colorectal surgerons with plan to pursue outpatient evaluation/management - onc aware - No indication for inpatient CRS proceduralization unless she develops hemodynamically significant bleed per prior consult notes - will follow up at scheduled surgery date next week 01/05, repeat CBC prior to OR date ordered on DC Assessment & Plan (11/16/2023 9:35 AM CDT): Patient has a remote history of colon cancer in the 1980s, and more recently colon polyps, last seen on colo in 2014. Now w/ polyp AND a new malignant appearing mass in transverse colon. Biopsies taken during colonoscopy consistent with adenocarcinoma. Staging CT C/A/P with lymph nodes up to 8 mm in mesentery but otherwise negative for obvious metastatic foci. Also had an indeterminate 6 mm right lower lobe pulmonary nodule. Was seen in oncology clinic with plan to follow up with surgery team as outpatient - Med onc consult, outpatient follow up Assessment & Plan (10/23/2023 8:31 AM CDT): Patient has a history of colon cancer in the 1980s, now w/ new transverse colon mass biopsy c/w colon adenocarcinoma. - onc/colorectal surgery consulted - staging CTA C/A/P with borderline enlarged lymph nodes up to 8 mm in mesentery but otherwise no metastatic foci noted Anemia, unspecified type 10/18/2023 Assessment & Plan (10/23/2023 8:42 AM CDT): Hgb on presentation 5.8 (baseline all over the place although most recently 9.5) w/ normal INR and plt. Endorses melena intermittently - 09/2023 labs: Tsat 6, iron 22, ferritin 19 - PPI - H pylori stool antigen pending - now s/p EGD/colo on 10/20 without active bleeding but did find notably a mass in colon, described in detail elsewhere - hgb had been stable since admission until evening after scopes when she had acute bleeding and required another unit of PRBCs (total 2 this admission) - Hgb stable at 7.5 last night - Advanced diet to regular - Transfuse Hgb>7, plt>10 in absence of bleeding, plt>50 if bleeding Transaminitis 10/18/2023 Assessment & Plan (10/21/2023 5:48 PM CDT): AP 210, AST 92, ALT 63 - acute hep panel neg - repeat hepatic function panel with normalized LFTs - RUQ US: Intra and extra hepatic bile duct dilatation, not appreciably changed from the prior CT, at least partially explained by absent gallbladder. Iron deficiency 10/14/2023 NICM (nonischemic cardiomyopathy) 09/16/2023 Assessment & Plan (12/29/2023 9:53 AM BOBBIN FIXER): Decline in LVEF to 30% on TTE from 03/2023 (45-50% on TTE 07/2022 at OSH and 62% on TTE from 05/06/21). Negative nuclear stress test on 06/2023. Euvolemic upon examination. Should be holding Entresto and Spironolactone in light of recent PETE. Endorsing NYHA 1-2 symptoms. Continue metoprolol XL 50 mg daily. Repeat labs today. Once kidney function back to back to baseline will plan to re-initiate Entreso and spironolactone. Will plant to repeat echo in 3 months after on optimal GDMT. ADDENDUM: Labs noted patient to have a hemoglobin 5.5. Patient advised to go to ER. Will follow up following hospital discharge. Assessment & Plan (11/08/2023 3:10 PM CDT): Decline in LVEF to 30% on TTE from 03/2023 (45-50% on TTE 07/2022 at OSH and 62% on TTE from 05/06/21). Negative nuclear stress test in 06/2023. Euvolemic upon examination. Not taking spironolactone and losartan given recent PETE. She was also previously on Jardiance but states she ran out of refills. Endorsing NYHA 1-2 symptoms. Continue metoprolol XL 50 mg daily. Repeat BMP today. If kidney function is back to baseline will plan to start Entresto, followed by resuming spironolactone, followed by Jardiance. Will plant to repeat echo in 3 months after on optimal GDMT. Assessment & Plan (09/16/2023 2:02 PM CDT): Decline in LVEF to 30% on TTE from 03/2023 (45-50% on TTE 07/2022 at OSH and 62% on TTE from 05/06/21). Negative nuclear stress test in 06/2023. Euvolemic upon examination. Not taking spironolactone of Jardiance as she ran out of refills. Endorsing NYHA 1-2 symptoms. Continue Losartan and Metoprolol XL. Resume Spironolactone today. Repeat BMP in 1 week. Plan to resume back Jardiance in next 1-2 weeks after spironolactone. Will also consider changing her Losartan to Entresto if not cost prohibited. Will plant to repeat echo in 3 months after on optimal GDMT. Depression 04/21/2023 Assessment & Plan (04/22/2023 1:45 PM BOBBIN FIXER): Patient admits to feeling sad because she is not at home making her own food. Also admits to poor appetite. 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 SPECT 06/2023 normal -Hold home spironolactone -Continue metoprolol Assessment & Plan (11/16/2023 9:37 AM CDT): TTE 03/2023 w EF 30%, G2DD, mild to mod AR, mild MR. SPECT 06/2023 normal - patient is off her losartan and aldactone since last admission because of PETE - she was last seen by her head filter tank tender helper I'm 11/07 with plan to start her on Entresto if her kidney function on repeat was normal and then to restart spironolactone but no prescription was sent yet - Defer starting Entresto/spironolactone when appropriate as outpatient - CW metoprolol. Assessment & Plan (10/20/2023 4:07 PM CDT): TTE 03/2023 w EF 30%, G2DD, mild to mod AR, mild MR - SPECT 06/2023 normal - euvolemic on exam - d/t PETE, hold losartan, aldactone - unclear if taking jardiance or not. Need to verify - metop Assessment & Plan (04/22/2023 1:46 PM BOBBIN FIXER): This would be her 3rd admission in 1 year for acute on chronic CHF. MEHRDAD, pulmonary edema, orthopniea, Pro-BNP 35K. C/W CHF. OSH TTE 07/2022 LVEF of 45-50% and grade 2 DD with mild global hypokinesis) - Furosemide, Spironolactone, Losartan,Toprol XL and Jardiance - 04/20 CXR: The lungs are clear. Tracheostomy tube projects over the mid thoracic trachea - 04/19 TTE: LVEF 30%, G2DD, Mild-to-mod AR, Mild MR - Of note, OSH TTE 07/2022 LVEF 45-50%; [facility] TTE 05/06/2021 LVEF 62) - Cardiology Team B Consulted. No additional recommendations (other than start Spironolactone) - Patient should follow up with her Primary Outpatient Operator Cavity Pump Dr. Mendoza Dyspnea on exertion 04/18/2023 Assessment & Plan (04/21/2023 12:45 PM BOBBIN FIXER): Suspect acute on chronic CHF. However she has had some white mucous from trach and subjective fevers. Tracheitis or pneumonia could be similar. S/P Vanc and Cefe in the ED. - Number #10 Macrina Tube. - Mild Pulmonary Edema and Pneumonia - Furosemide, Cefepime and Doxycycline - Negative for MRSA -Tracheostomy Emergency Kit at Bedside. - Will need supplies at discharge. Pneumonia of right middle lobe due to infectious organism 04/17/2023 Assessment & Plan (04/22/2023 1:43 PM BOBBIN FIXER): Initial Trach aspirate noted Haemophilus influenzae, Moraxella catarrhalis, Streptococcus pyogene. Started on Abx Therapy. - 04/20/23 Repeat CXR Tracheostomy tube projects over the mid thoracic trachea; Lungs clear; No pleural effusion or pneumothorax; Mediastinal contours and cardiac silhouette are normal. - Cefepime and Doxycyline course completed. 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 On admit afebrile and HDS. Labs unremarkable. CT A/P revealed slightly bigger lesion in L kidney, c/f renal cell carcinoma; interval increase in intra and extrahepatic biliary ductal dilatation and prominent main pancreactic duct with narrowing of ducts at ampulla without obstructing lesion rec MRCP/ERCP; nodule RML likely mucoid impacted bronchus f/u CT 3 mo. Pain subsequently attributed to choledocholithiasis s/p ERCP with stone removal then lap cholecystectomy >open cholecystectomy due to need for repair of SB perforation at site of initial insertion 04/09. Hospitalization further c/b fevers starting 04/14, bcx + S bovis, started on cefe and vanc and fever resolved. 04/15: -BCX: S bovis 04/16: -BCX: NG 04/18: -TTE: cannot r/o aortic vegetation, mod AR Although low suspicion for IE, TTE cannot exclude vegetation. Discussed TERRANCE with cardiology and thought to be too high risk at this time. Recommendations: -Continue ceftriaxone 2g IV q24h, duration at least 4 weeks from 04/16 with repeat TTE to determine final duration. -CBC with diff, CMP weekly. -ID will sign off. Will see pt in 2 weeks in clinic. See plan of care dated 04/22 for details. 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 PETE likely attributable to pre-renal etiology, ddx also includes vanc toxicity. She denies chest pain, palpitations. One episode of transient self-resolving numbness overnight localized to right arm. - Will give 0.5 L of NS today and obtain follow up potassium PETE (acute kidney injury) 10/20/2018 Assessment & Plan (12/29/2023 3:38 PM BOBBIN FIXER): Baseline creatinine of approximately 1.1 with creatinine on admission 1.62. Suspect in the setting of worsening anemia. Improved with PRBC transfusion. UA without concern for infection, blood, or protein. - monitor Cr, UOP Assessment & Plan (11/16/2023 9:34 AM CDT): Baseline Cr 1.1. Cr on admission is 1.6. and Potassium 6.3 on admission which was treated medically with improvement in levels. Nephrology consulted by ED as patient's potassium initially was not responding to medical management who recommended continuing medical management and if there is no improvement in patient potassium she will need dialysis. FeNa 10.9, UA is negative for RBCs or WBCs. Ultrasound renal shows mild bilateral hydronephrosis new compared to prior CT and no sonographic evidence of obstructive stone. Renal Doppler shows detectable arterial and venous flow to both kidneys. Bladder scan negative for postvoid retention. Improved with IV hydration. - creatinine improved to 1.05 today Assessment & Plan (10/22/2023 9:49 AM CDT): WBK 6.2, bicarb 18, Cr 1.6 (baseline 1.1) on arrival - now resolved Assessment & Plan (10/21/2018 9:07 AM CDT): Cr improved 10/21 - patient reports good PO intake yesterday. Did get some IV fluids. PETE likely in setting of hypovolemia secondary to decreased PO intake. Other considerations include Vanc-induced PETE, ATN in setting of infection - Trial 0.5L NS today - may consider Lasix or patiromer if K remains elevated or pt becomes symptomatic - Monitor BMP - Consider de-escalating Vanc IBS (irritable bowel syndrome) 10/19/2018 Assessment & Plan (10/19/2018 3:36 PM CDT): - Continue home dicyclomine Swelling of face 10/18/2018 Assessment & Plan (10/21/2018 9:06 AM CDT): Patient with recent replacement of trach and stent placement on 10/06/18 with uncomplicated postop course - she presented to follow up appointment with swelling on 10/17, was given a dose of augmentin, but swelling continued to worsen and she presented to ED after some concerns that she was developing SOB. She was febrile to 102 with WBC 9. Flexible nasolaryngoscopy showed some edema in nasopharynx and inability to access oropharynx due to edema and secretions. CT neck showed extensive edema in left fishing worker and parotid spaces with no fluid collection. No evidence of subcutaneous air on follow imaging. - ENT following - will plan to transfer to ENT as primary - augmentin discontinued - started on Vanc and cefepime. Remains afebrile - Vanc trough; hold evening dose of Vanc if trough is elevated - pain control: Tyelnol 1g q6h, Oxycodone 10mg q4h PRN, dilaudid 2mg PRN for breakthrough - due to concerns for possible angioedema, started on 10mg q8h of decadron, 25 mg benadryl, 40mg famotidine 10/19. Responding well. - liquid diet - blood cultures NGTD - monitor CBC - Dopplers of IJ negative for evidence of thrombosis Generalized anxiety disorder 10/18/2018 Assessment & Plan (10/19/2018 3:34 PM CDT): - Continue home buspar GERD (gastroesophageal reflux disease) 9 Assessment & Plan (12/29/2023 3:02 AM BOBBIN FIXER): Home protonix Assessment & Plan (10/19/2018 3:34 PM CDT): - Hold home protonix 40mg while on Famotidine Tracheostomy in place 10/17/2018 Assessment & Plan (11/13/2023 1:46 AM CDT): Because of trach stenosis. Assessment & Plan (10/18/2023 1:59 AM CDT): For trach stenosis - trach orders Assessment & Plan (05/21/2020 12:58 PM CDT): Tracheostomy change without difficulty today. Continue routine trach changes. Assessment & Plan (10/18/2018 11:28 AM CDT): Currently 6 Cuffed Shiley. Reports significant pain on the skin around trach site. - Trach care as per ENT team and nursing. 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 Overview (08/08/2018): Added automatically from request for surgery [id number] Aspiration pneumonitis 06/24/2018 Assessment & Plan (06/25/2018 11:29 AM CDT): - atypical chest pain/pleuritic most likely due to coughing - given atypical nature, negative trop, no significant EKG changes, no further workup necessary - tylenol and cheratussin prn - symptoms improving - okay to discharge today Assessment & Plan (06/24/2018 5:27 AM CDT): - atypical chest pain/pleuritic most likely due to coughing - given atypical nature, negative trop, no significant EKG changes, no further workup necessary - tylenol prn Aphonia 12/13/2017 Renal cell carcinoma of left kidney 12/09/2017 Assessment & Plan (06/25/2018 11:30 AM CDT): - lesion seen on CT 11/2017 - ensure outpatient follow up with urology Assessment & Plan (06/24/2018 5:23 AM CDT): - lesion seen on CT 11/2017 - ensure outpatient follow up with urology Assessment & Plan (12/10/2017 2:03 PM CDT): Newly diagnosed, incidental finding on admit CT 12/08. Left renal lesion 1.2cm. Consulted urology to further evaluate & plan to follow up with Dr Santizo in outpatient setting for renal ultrasound and discussion of further management. Urology will arrange appointment at discharge. Suspect this finding is cause of left flank pain. Assessment & Plan (12/09/2017 10:54 AM CDT): Newly diagnosed, incidental finding on admit CT 12/08. Left renal lesion 1.2cm. Will consult urology to further evaluate. Suspect this finding is cause of left flank pain. GIB (gastrointestinal bleeding) 12/08/2017 Assessment & Plan (12/08/2017 9:55 PM CDT): Hgb 5.4 --> 4.9. HDS. +Melena, guaiac+ in ED. S/p 2U pRBC. Likely UGI source, possible PUD. - 2 large-bore PIV - CBC q8h - Cont PPI gtt - NPO @ MN, GI consult for EGD in AM Gastrointestinal hemorrhage 12/08/2017 Overview (12/09/2017): Added automatically from request for surgery [id number] Assessment & Plan (12/10/2017 1:57 PM CDT): Due to multiple gastric and duodenal ulcerations. Reviewed images from EGD 12/09 personally and discussed findings and tx plan with patient. Transitioned from continuous IV protonix infusion to BID dosing. Tolerated clears overnight. Repeat blood counts stable after 3uPRBC this admission. Will advance to low fat, 2gm sodium, and monitor tolerance. If does ok, plan home later today. Bilateral complete paralysis of vocal cords or l arynx 12/03/2017 Overview (12/03/2017): Added automatically from request for surgery [id number] Assessment & Plan (12/10/2017 1:58 PM CDT): With subglottic stenosis. Tulio #5, TC. ENT will follow up with patient as o/p. Continue Trach care. Nonverbal due to stenosis. Planned rescheduling of dilation with ENT underway. Assessment & Plan (12/08/2017 10:35 PM CDT): With subglottic stenosis. Tulio #5, TC. - Trach care Hx of cardiac arrest 08/30/2017 Overview (08/30/2017): VF arrest in April 2017, in setting of inferior STEMI due to 100% mid CFX stenosis History of ST elevation myocardial infarction (S MAGDY) 08/30/2017 Overview (08/30/2017): Complicated by VF arrest. Found to have 100% mid CFX s/p 2 ELISHA 05/18/2017 Coronary artery disease invo lving [place] coronary artery of [place] heart 08/30/2017 Assessment & Plan (12/29/2023 9:45 AM BOBBIN FIXER): S/p STEMI and VF arrest in s/p CFX stents. Nuclear tress test from 06/2023 negative for ischemia. LDL of 43 on labs from 03/2023. Asymptomatic. Continue ASA and atorvastatin. Assessment & Plan (12/29/2023 1:52 AM BOBBIN FIXER): Continue statin. Holding ASA d/t likely GIB and has not been taking recently in the outpatient setting Assessment & Plan (11/14/2023 9:20 AM CDT): S/P STEMI and VF arrest in s/p CFX stents. Nuclear tress test from 06/2023 negative for ischemia. LDL of 43 on labs from 03/2023. Asymptomatic. - Continue amlodipine, atorvastatin, and metoprolol XL at current doses. - ASA was held in the last admission due to GI bleeding and not taking it currently Assessment & Plan (11/08/2023 1:09 PM CDT): S/p STEMI and VF arrest in s/p CFX stents. Nuclear tress test from 06/2023 negative for ischemia. LDL of 43 on labs from 03/2023. Asymptomatic. Continue amlodipine, ASA, atorvastatin, and metoprolol XL at current doses. Needs additional blood pressure management. See plan below. Assessment & Plan (10/18/2023 4:42 AM CDT): S/p STEMI and VF arrest in s/p CFX stents - d/t possible GIB hold ASA - statin, metop Assessment & Plan (09/16/2023 1:53 PM CDT): S/p STEMI and VF arrest in s/p CFX stents. Nuclear tress test from 06/2023 negative for ischemia. LDL of 43 on labs from 03/2023. Asymptomatic. Continue amlodipine, ASA, atorvastatin, and metoprolol XL at current doses. Needs additional blood pressure management. See plan below. Assessment & Plan (04/21/2023 2:46 PM BOBBIN FIXER): History of STEMI (c/b VF arrest 04/2017 s/p 2 ELISHA to circumflex). Last saw Dr. Mendoza on 12/23/22 who recommended a regadenoson nuclear stress test to evaluate for progression of CAD given HFrEF however this has not been done. EKG with some STD in the lateral leads though trops flat and only minimally elevated. - Aspirin, Atorvasatin, Toprol XL, Losartan (See Heart Failure) Assessment & Plan (10/18/2018 11:33 AM CDT): S/p MT in 04/2017 with subsequent V Fib arrest requiring intubation. - continue on home aspirin, statin - low sodium diet Assessment & Plan (06/25/2018 11:29 AM CDT): - s/p ELISHA May 2017, continue home asa, statin, plavix, and metoprolol Assessment & Plan (06/24/2018 5:28 AM CDT): - s/p ELISHA May 2017, continue home asa, statin, plavix, and metoprolol Assessment & Plan (12/10/2017 2:01 PM CDT): STEMI 04/2017 s/p DESx2 to LCx. C/b VF arrest x2. Monitored on telemetry without events, personally reviewed. Held ASA, plavix, antihypertensives on admit in setting of GIB & anemia. Cont atorvastatin. Assessment & Plan (12/08/2017 9:57 PM CDT): STEMI 04/2017 s/p DESx2 to LCx. C/b VF arrest x2. - Monitor on tele - Hold ASA, plavix, metop for now in setting of GIB & anemia - Cont atorva Essential hypertension 08/30/2017 Assessment & Plan (12/29/2023 9:48 AM BOBBIN FIXER): Borderline low today. Unclear on what medications she is taking at home. Will have nurse call patient and verify home medications. Assessment & Plan (11/08/2023 1:10 PM CDT): Above goal today. Not taking spironolactone or losartan due to recent PETE. Continue amlodipine and metoprolol XL. BMP today. If PETE is resolved will plan to start Entresto first. Assessment & Plan (09/16/2023 1:55 PM CDT): Above goal today. Not taking her spironolactone as she ran out of refills. Continue amlodipine, metoprolol XL and losartan at current doses. Resume Spironolactone at 25 mg daily. BMP in 1 week after starting. BMP today. BP diary. Assessment & Plan (04/22/2023 1:46 PM BOBBIN FIXER): -Blood pressure stable 124/52 Assessment & Plan (10/19/2018 3:34 PM CDT): Uncertain baseline. - continue amlodipine, metoprolol - holding losartan Assessment & Plan (06/25/2018 11:29 AM CDT): - continue amlodipine, losartan, metoprolol Assessment & Plan (06/24/2018 5:28 AM CDT): - continue amlodipine, losartan, metoprolol Assessment & Plan (12/10/2017 1:59 PM CDT): Held amlodipine, metop, losartan on admit. Will resume metoprolol and losartan. Ok to resume amlodipine on discharge. 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 Pt no longer prescribed Namenda, Gabapentin nor Jardiance. She continues to receive Donepezil outpt. -Donepezil (Aricept) 10mg daily Assessment & Plan (10/18/2018 11:35 AM CDT): Patient reportedly able to do all iADLs at home with high functional baseline. - Continue home donepezil Assessment & Plan (06/25/2018 11:29 AM CDT): - continue donepezil Assessment & Plan (06/24/2018 5:28 AM CDT): - continue donepezil Assessment & Plan (12/10/2017 2:00 PM CDT): Mild cognitive impairment. Oriented x4 and has insight. Cont donepezil. Cont buspar (althought this can cause short term memory loss) and escitalopram for depression. 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 Assessment & Plan (12/08/2017 10:35 PM CDT): Mild cognitive impairment. - Cont donepezil - Cont buspar, escitalopram for depression Anemia 11/11/2012 Assessment & Plan (11/13/2023 10:50 AM CDT): Hb 8.9. Stable. Patient denied any bleeding or melena. Admitted recently for anemia and had upper and lower endoscopy which showed partially occlusive mass in the transverse colon. -- Monitor Hb and transfuse as needed. Assessment & Plan (04/21/2023 2:06 PM BOBBIN FIXER): Chronic, Normocytic. MCV 83, HgB 7.1 05/12/21. Ferritin WNL, Iron low and tsat low, and Retic elevated - S/P 1unit PRBC in the ED, post transfusion repeat appropriate - Hemoglobin stable at 9.5g/dL. - IV Ferrlicit ordered. Generalized osteoarthritis 11/11/2012 Metabolic syndrome X 11/11/2012 Knee pain 08/02/2012 Primary malignant neoplasm of descending colon 0 03/28/2012 Primary malignant neoplasm o f lower outer quadrant of female breast 03/28/2012 Neoplasm of breast 02/25/2012 Osteoporosis 02/25/2012 Arthralgia of hip 09/02/2011 Current smoker 03/31/2010 Overview (06/04/2017): Description: 06/11/11 Current Treatment and Therapy Plans No current plan information found. Other Current Plans iron dextran (INFED) infusion* Plan Start Date:10/15/2023 Plan Provider:Leon Mendoza MD Linked Problems Iron deficiency Treatment Medications No medications scheduled. Past Treatment and Therapy Plans No past plan information found. Lifetime Dose Tracking * Chemical Lifetime Dose Automatic Entry Manual Entr y Fluoro Time 30.6 minutes 30.6 minutes 0 minutes Air kerma at the reference point (Ka,r) 376 mGy 3 76 mGy 0 mGy DLP 11,173 mGycm 11,173 mGycm 0 mGycm Resolved Problems Problem Noted Date Diagnosed Date Resolved Date Colonic mass 10/21/2023 10/23/2023 C. difficile diarrhea 05/05/20212021 Diarrhea, unspecified type 05/02/2021 0 05/13/2021 Choledocholithiasis 05/02/2021 05/14/19 22 Overview (05/08/2021): Added automatically from request for surgery [id number] History of biliary stent insertion 04/24/2021 05/13/2021 Overview (04/24/2021): Added automatically from request for surgery [id number] Common bile duct dilation 04/06/2021 Overview (04/08/2021): Added automatically from request for surgery [id number] Vocal cord paralysis 07/26/2020 021 Overview (07/26/2020): Added automatically from request for surgery [id number] Bleeding from wound 06/24/2018 06/26/19 19 Assessment & Plan (06/25/2018 11:20 AM CDT): - bleeding from trach most likely due to manipulation of of trach/irritation on stoma site - trach exchanged by ENT - per ENT nothing further to do and no need to hold plavix Assessment & Plan (06/24/2018 5:26 AM CDT): - bleeding from trach most likely due to manipulation of of trach/irritation on stoma site - trach exchanged by ENT - per ENT nothing further to do and no need to hold plavix - will follow up final recs with day team 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 We again discussed options briefly to include posterior cricoid split with rib cartilage grafting and as well as buccal mucosa skin graft verses the laryngectomy. She is at a point where she does not like the fact that she could still be at risk of the same scarring problem developing even after the bigger surgery involving a posterior cricoid split she recognizes that while removal of the larynx would change her voice, it was still be possible for her to have some level of the voice, a completely safe and secure airway, and be able to safely swallow all consistencies. Because she is interested in proceeding, I would like to have her meet with 1 of my head and neck speech-language pathologists for formal evaluation. After their recommendation, I would like to have the patient come back to my office with her close family members so that I can go over the details of the surgery and help her to better understand what this will entail. Assessment & Plan (11/24/2019 4:29 PM CDT): The patient has a very complicated laryngotracheal history. I discussed with the patient and her brother that her underlying problem is that her body likes to scar. The fact that she has developed granulation tissue and scar repeatedly asked her airway surgical sites, despite best efforts to minimize granulation tissue growth with debridement, suggest the fact that her body inherently wants to scar things closed. This has made having her decannulated quite difficult. Dr. Mendoza has already previously tried airway interventions that most laryngologists would have tried at this point. I think that there are 3 options to consider: 1. No further airway intervention. She relies on her tracheostomy tube and does not have an ability to phonate. She is able to swallow safely. While this is not an ideal situation, it is an option given how quickly she generally scars from other airway interventions. 2. Thyrotomy with posterior cricoid split, placement of rib cartilage graft, buccal or split-thickness skin graft to the subglottis, and stent or keel to prevent further glottic web formation. This would allow for airway widening, but she would still be at risk for airway scarring given what has happened after her prior procedures. We discussed the risks and benefits to include possible pneumothorax from a rib graft, possible tracheoesophageal fistula, possible airway obstruction, possible need for future surgeries. 3. Narrow field total laryngectomy. While this would remove her larynx, her larynx is already nonfunctional given that she is not able to phonate or safely breathe through her larynx. This would require the creation of a permanent stoma at her neck, but she might not necessarily need to wear any hardware within the stoma. Additionally, she could have a tracheoesophageal prosthesis placed in order to allow her to phonate. We discussed with this voice would sound like. The risks of the surgery including pharyngocutaneous fistula, possible scarring of the stoma, and the need for future surgery were discussed. She would like to think about these options, and will let me or Dr. Mendoza know how she wishes to proceed. Malignant neoplasm of female breast 12/31/2010 04/19/2023 Overview (06/04/2017): Description: Malignant Female Breast Neoplasm, NOS Assessment & Plan (04/18/2023 1:39 AM BOBBIN FIXER): Breast cancer s/p left mastoidectomy 2005 -Continue outpatient follow up.
--- OUTSIDE RECORDS SUMMARY | 2024-05-06 21:19 | XMS_ITS | Encounter Summary ---
Author Organization [facility] Healthcare Address [address] [place] [address] Care Team Providers Care Field Artillery Operations Man Name Role Phone Gamal Morales Primary Care Provider [phone] Lauren Dean RN Unavailable [phone] Jazmín Barr MD Primary Care Provider [phone] Leon Leslie MD Primary Care Provider [phone] Manuel Silveira MD PhD Unavailable [phone] Elvie Drake MD Unavailable [phone] Migel Torres MD Unavailable Encounter Details Date Type Department Care Team (Late st Contact Info) Description 06/24/2018 Documentation [facility] [address] [place] [address] Malinda Garcia RN Social History Tobacco Use Types Packs/Day Years Used Date Smoking Tobacco: Former Cigarettes 1 54.2 1 964 - 05/2017 Smokeless Tobacco: Never Alcohol Use Standard Drinks/Week Comments No 0 (1 standard drink = 0.6 oz pur e alcohol) Comments No Sex and Gender Information Value Date Recorded Sex Assigned at Not on file Legal Sex Female 5:35 AM GRINDING AND 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 03/18/2020 03/18/2020 04/01/2020 3:0 6 AM GRINDING AND SPRAYING SUPERVISOR COVID: Suspected 04/06/2021 04/06/2021 04/06/2021 5:44 PM GRINDING AND SPRAYING SUPERVISOR C. difficile Comment:04/19/2023 IP Review: per current RN, no diarrhea in the past 48 hours, OK to come off C.dif precautions. Yelena Doyle RN 05/02/2021 05/02/20212023 9:09 AM GRINDING AND SPRAYING SUPERVISOR COVID: Suspected 06/05/2021 06/05/2021 06/06/2021 3:05 AM CDT COVID: Suspected 04/17/2023 04/17/2023 04/17/2023 8:31 PM GRINDING AND SPRAYING SUPERVISOR C. difficile suspected 04/21/2023 04/21/2023 5:33 AM GRINDING AND SPRAYING SUPERVISOR COVID19 04/22/2023 04/22/2023 05/02/2023 3:05 AM CDT COVID: Recovered Comment:Added based on recent COVID infection. 05/02/2023 05/03/2023 07/31/2023 3:05 AM C DT COVID: Suspected 01/13/2024 01/13/2024 01/13/2024 10:26 AM GRINDING AND SPRAYING SUPERVISOR Ring Surveillance Comment:Ring Surveillance - [id number]. Final swab negative 01/17/2024 01/17/2024 02/06/2024 11:47 AM GRINDING AND SPRAYING SUPERVISOR MDR gram neg/ESBL 01/19/2024 02/25/2024 C. difficile suspected 01/26/2024 01/26/202401/252024 7:18 PM GRINDING AND SPRAYING SUPERVISOR C. difficile suspected 02/28/2024 03/02/202403/02 2:35 PM GRINDING AND SPRAYING SUPERVISOR C. difficile suspected 03/20/2024 03/20/202403/20 10:38 PM GRINDING AND SPRAYING SUPERVISOR C. difficile suspected 03/30/2024 03/30/202403/31 11:40 AM GRINDING AND SPRAYING SUPERVISOR documented as of this encounter Care Teams Field Artillery Operations Man Relationship Specialty Start Date End Date Juan Carlos MoraleseDO PCP - General Internal Medicine 07/28/17 06/15/22 Jazmín Barr MD [address] [address] PCP - General Internal Medicine 06/16/22 12/22/22 Leon Leslie MD [address] [address] PCP - General Family Practice 12/23/22 Lauren Dean RN [address] [address] [facility] Outpatient Grinding Wheel Facer 03/20/19 04/19/19 Manuel Silveira MD PhD [address] [place] [address] Medical Oncologist/Yarn Rewinder Medical Oncology 11/03/23 11/11/23 Elvie Drake MD [address] [place] [address] Consulting Physician Medical Oncology 11/12/23 Migel Torres MD [address] [facility] [place] [id number] [place] [address] Surgeon Colon and Rectal Surgery 11/23/23 documented as of this encounter
--- OUTSIDE RECORDS SUMMARY | 2024-05-06 21:20 | XMS_ITS | Clinical Summary ---
Author Organization [facility] [address] Address [address] [place] [address] Care Team Providers Care Client Evaluator Name Role Phone Leon Leslie MD Primary Care Provider [phone] Elvie Drake MD Unavailable Migel Torres MD Unavailable [phone] Allergies Active Allergy Reactions Criticality Noted Date Comments Chlorhexidine Itching Low 03/05/2024 Hydrochlorothiazide Angioedema High 04/17/2023 Lisinopril Edema Medium Medications donepeziL (ARICEPT) 10 mg tablet Take 1 tablet (10 mg total) by mouth every morning Active atorvastatin (Lipitor) 40 mg tablet Take 1 tablet (40 mg total) by mouth nightly 90 tablet 3 04/22/19 24 Active Additional Information Patient taking differently:40 mg oralEvery morning, Indications: hyperlipidemia, Informant: Self, Reported on 03/21/2024 acetaminophen (TYLENOL) 325 mg tablet Take 2 tablets (650 mg total) by mouth every 6 (six) hours as needed for pain 04/22/19 24 Active Additional Information Patient taking differently:650 mg oral Every 6 hours PRN, pain,Indications: Pain, Informant: Self, Reported on 03/21/2024 mirtazapine (REMERON SHAKIRA-TAB) 15 mg disintegrating tablet Take 1 tablet (15 mg total) by mouth nightly 04/22/19 Active Additional Information Patient not taking.Informant: Self, Reported on 12/28/2023 blood pressure monitor (Blood Pressure Kit) kit 1 kit as needed (Check Blood Pressure) 1 kit 09/16/19 Active busPIRone (BUSPAR) 15 mg tablet Take 1 tablet (15 mg total) by mouth 2 (two) times a day 10/08/[address] (PROTONIX) 40 mg EC tablet TAKE 1 TABLET BY MOUTH EVERY DAY 90 tablet 11/19/19 Active Additional Information Patient taking differently:40 mg oralEvery morning, Indications: Reflux, Informant: Self, Reported on 02/11/2024 sodium chloride 7 % solution for nebulization Take 1.5 mL by nebulization 2 (two) times a day 02/01/20 24 Active aspirin 81 mg chewable tablet Take 1 tablet (81 mg total) by mouth daily 02/01/20 24 025 Active metoprolol tartrate (LOPRESSOR) 25 mg immediate release tablet Take 1 tablet (25 mg total) by mouth 2 (two) times a day 02/01/20 24 025 Active loperamide (IMODIUM) 2 mg capsule Take 1 capsule (2 mg total) by mouth 4 (four) times a day as needed for diarrhea 03/07/19 25 Active methocarbamoL (ROBAXIN) 500 mg tablet Take 1 tablet (500 mg total) by mouth 3 (three) times a day 03/07/19 25 Active metroNIDAZOLE (FLAGYL) 500 mg tabletIndications: Abdominal/Pelvic Infection Take 1 tablet (500 mg total) by mouth 2 (two) times a day 03/07/19 25 Active oxyCODONE (ROXICODONE) 5 mg immediate release tabletIndications: Pain Take 0.5 tablets (2.5 mg total) by mouth every 8 (eight) hours as needed for pain 03/07/19 25 Active cefepime (MAXIPIME) 2 gram injection Infuse 10 mL (2 g total) into a venous catheter every 12 (twelve) hours 03/07/19 25 Active Active Problems Problem Noted Date Diagnosed Date Perihepatic fluid collection 02/23/2024 Assessment & Plan (03/07/2024 12:56 PM POLICY CHECKER): Patient is a 83 y.o. female history [...] -Blood cultures 02/23/2024: NG -RUL pleural fluid 02/23: pseudomonas aeruginosa -Hepatic abscess 02/24: pseudomonas aeruginosa, [...] 12/30/2023 Assessment & Plan (12/30/2023 4:27 PM POLICY CHECKER): IV infiltrated while running ferrous gluconate, subsequently [...] 12/28 Assessment & Plan (12/29/2023 3:42 PM POLICY CHECKER): CO2 15 with AG 10; suspect 2/2 PETE in the setting of anemia. Improving with improved PETE and Hgb - monitor BMP Altered mental status 12/29/2023 Assessment & Plan (12/30/2023 4:24 PM POLICY CHECKER): Per [id number], patient's mental status altered this afternoon with intermittent reaching for things that were not there. CT head without acute process. Appropriately answering yes/no questions and exam is non-focal. May be some delirium iso anemia, other metabolic derangements. Has underlying hx of dementia, at time of DC AOx4 - continue home donepezil, buspar, mirtazipine Anemia 12/28/2023 Assessment & Plan (12/30/2023 4:24 PM POLICY CHECKER): Presenting with hemoglobin of 5.5. Although patient has not noticed blood per rectum, has known colonic mass with laboratory findings of MARIANA without c/f hemolysis and no other appreciable source of bleed. Prior EGD without upper GI source. lDHC, hapto, retic, bili WNL. Iron studies consistent with MARIANA Likely slow oozing from known mass which [...] 10/23/2023 Assessment & Plan (12/30/2023 4:22 PM POLICY CHECKER): Recent admission for anemia at which time [...] 09/16/2023 Assessment & Plan (12/29/2023 9:53 AM POLICY CHECKER): Decline in LVEF to 30% on TTE [...] 04/21/2023 Assessment & Plan (04/22/2023 1:45 PM POLICY CHECKER): Patient admits to feeling sad because she is not at home making her own food. Also admits to poor appetite. 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 SPECT 06/2023 normal -Hold home spironolactone -Continue metoprolol Assessment & Plan (11/16/2023 9:37 AM CDT): TTE 03/2023 w EF 30%, G2DD, mild to mod AR, mild MR. SPECT 06/2023 normal - patient is off her losartan and aldactone since last admission because of PETE - she was last seen by her backup sawyer I'm 11/07 with plan to start her [...] metop Assessment & Plan (04/22/2023 1:46 PM POLICY CHECKER): This would be her 3rd admission in [...] Of note, OSH TTE 07/2022 LVEF 45-50%; [facility] TTE 05/06/2021 LVEF 62) - Cardiology Team B Consulted. No additional recommendations (other than start Spironolactone) - Patient should follow up with her Primary Outpatient Drum Operator Dr. Mendoza Dyspnea on exertion 04/18/2023 Assessment & Plan (04/21/2023 12:45 PM POLICY CHECKER): Suspect acute on chronic CHF. However she [...] 04/17/2023 Assessment & Plan (04/22/2023 1:43 PM POLICY CHECKER): Initial Trach aspirate noted Haemophilus influenzae, Moraxella catarrhalis, Streptococcus pyogene. Started on Abx Therapy. - 04/20/23 Repeat CXR Tracheostomy tube projects over the mid thoracic trachea; Lungs clear; No pleural effusion or pneumothorax; Mediastinal contours and cardiac silhouette are normal. - Cefepime and Doxycyline course completed. 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 [...] 9 Assessment & Plan (12/29/2023 3:02 AM POLICY CHECKER): Home protonix Assessment & Plan (10/19/2018 3:34 [...] (08/08/2018): Added automatically from request for surgery [id number] Aspiration pneumonitis 06/24/2018 Assessment & Plan (06/25/2018 [...] (12/09/2017): Added automatically from request for surgery [id number] Assessment & Plan (12/10/2017 1:57 PM CDT): [...] (12/03/2017): Added automatically from request for surgery [id number] Assessment & Plan (12/10/2017 1:58 PM CDT): With subglottic stenosis. Tulio #5, HHTC. ENT will follow up with patient as o/p. Continue Trach care. Nonverbal due to stenosis. Planned rescheduling of dilation with ENT underway. Assessment & Plan (12/08/2017 10:35 PM CDT): With subglottic stenosis. Tulio #5, HHTC. - Trach care Hx of cardiac arrest 08/30/2017 Overview (08/30/2017): VF arrest in April 2017, in setting of inferior STEMI due to 100% mid CFX stenosis History of ST elevation myocardial infarction (S MAGDY) 08/30/2017 Overview (08/30/2017): Complicated by VF arrest. Found to have 100% mid CFX s/p 2 ELISHA 05/18/2017 Coronary artery disease invo lving council coronary artery of council heart 08/30/2017 Assessment & Plan (12/29/2023 9:45 AM POLICY CHECKER): S/p STEMI and VF arrest in s/p CFX stents. Nuclear tress test from 06/2023 negative for ischemia. LDL of 43 on labs from 03/2023. Asymptomatic. Continue ASA and atorvastatin. Assessment & Plan (12/29/2023 1:52 AM POLICY CHECKER): Continue statin. Holding ASA d/t likely GIB [...] below. Assessment & Plan (04/21/2023 2:46 PM POLICY CHECKER): History of STEMI (c/b VF arrest 04/2017 [...] & Plan (10/18/2018 11:33 AM CDT): S/p [place] in 04/2017 with subsequent V Fib arrest [...] 08/30/2017 Assessment & Plan (12/29/2023 9:48 AM POLICY CHECKER): Borderline low today. Unclear on what medications [...] diary. Assessment & Plan (04/22/2023 1:46 PM POLICY CHECKER): -Blood pressure stable 124/52 Assessment & Plan [...] aricept Assessment & Plan (04/20/2023 3:45 PM POLICY CHECKER): Call patient's Pharmacy ([facility] [phone]). Pt no longer prescribed Namenda, Gabapentin nor [...] loss) and escitalopram for depression. Will defer termite control technician management to PCP. Assessment & Plan (12/08/2017 [...] needed. Assessment & Plan (04/21/2023 2:06 PM POLICY CHECKER): Chronic, Normocytic. MCV 83, HgB 7.1 05/12/21. [...] Current smoker 03/31/2010 Overview (06/04/2017): Description: 06/11/11 Resolved Problems Problem Noted Date Diagnosed Date Resolved Date Colonic mass 10/21/2023 10/23/2023 C. difficile diarrhea 05/05/20212021 Diarrhea, unspecified type 05/02/2021 0 05/13/2021 Choledocholithiasis 05/02/2021 05/14/19 Overview (05/08/2021): Added automatically from request for surgery [id number] History of biliary stent insertion 04/24/2021 05/13/2021 Overview (04/24/2021): Added automatically from request for surgery [id number] Common bile duct dilation 04/06/2021 Overview (04/08/2021): Added automatically from request for surgery [id number] Vocal cord paralysis 07/26/2020 021 Overview (07/26/2020): Added automatically from request for surgery [id number] Bleeding from wound 06/24/2018 06/26/19 Assessment & Plan (06/25/2018 11:20 AM CDT): [...] with day team Stenosis of larynx 12/03/2017 Assessment & Plan (01/11/2020 2:12 PM POLICY CHECKER): The patient feels that she would like [...] NOS Assessment & Plan (04/18/2023 1:39 AM POLICY CHECKER): Breast cancer s/p left mastoidectomy 2006 -Continue outpatient follow up. Encounters Date Type Department Care Team Description 04/18/2024 10:37 AM POLICY CHECKER - 04/18/2024 11:59 PM POLICY CHECKER Hospital Encounter [address] [address] Discharge Disposition: Discharge to home or self care 04/17/2024 11:45 PM POLICY CHECKER - 04/17/2024 11:59 PM POLICY CHECKER Hospital Encounter [address] [address] Discharge Disposition: Discharge to home or self care 04/17/2024 3:45 AM POLICY CHECKER - 04/17/2024 11:59 PM POLICY CHECKER Hospital Encounter [address] [address] Discharge Disposition: Discharge to home or self care 04/13/2024 4:00 AM POLICY CHECKER - 04/13/2024 11:59 PM POLICY CHECKER Hospital Encounter [address] [address] Discharge Disposition: Discharge to home or self care 04/12/2024 4:00 AM POLICY CHECKER - 04/12/2024 11:59 PM POLICY CHECKER Hospital Encounter [address] [address] Discharge Disposition: Discharge to home or self care 04/11/2024 4:00 AM POLICY CHECKER - 04/11/2024 11:59 PM POLICY CHECKER Hospital Encounter [address] [address] Discharge Disposition: Discharge to home or self care 04/10/2024 4:52 AM POLICY CHECKER - 04/10/2024 11:59 PM POLICY CHECKER Hospital Encounter [address] [address] Discharge Disposition: Discharge to home or self care 04/09/2024 4:30 AM POLICY CHECKER - 04/09/2024 11:59 PM POLICY CHECKER Hospital Encounter [address] [address] Discharge Disposition: Discharge to home or self care 04/08/2024 4:30 AM POLICY CHECKER - 04/08/2024 11:59 PM POLICY CHECKER Hospital Encounter [address] [address] Discharge Disposition: Discharge to home or self care 04/06/2024 4:00 AM POLICY CHECKER - 04/06/2024 11:59 PM POLICY CHECKER Hospital Encounter [address] [address] Discharge Disposition: Discharge to home or self care 04/05/2024 4:00 AM POLICY CHECKER - 04/05/2024 11:59 PM POLICY CHECKER Hospital Encounter [address] [address] Discharge Disposition: Discharge to home or self care 04/04/2024 4:30 AM POLICY CHECKER - 04/04/2024 11:59 PM POLICY CHECKER Hospital Encounter [address] [address] Discharge Disposition: Discharge to home or self care 04/03/2024 3:10 AM POLICY CHECKER - 04/03/2024 11:59 PM POLICY CHECKER Hospital Encounter [address] [address] Discharge Disposition: Discharge to home or self care 04/01/2024 4:00 AM POLICY CHECKER - 04/01/2024 11:59 PM POLICY CHECKER Hospital Encounter [address] [address] Discharge Disposition: Discharge to home or self care 03/31/2024 4:30 AM POLICY CHECKER - 03/31/2024 11:59 PM POLICY CHECKER Hospital Encounter [address] [address] Discharge Disposition: Discharge to home or self care 03/30/2024 4:00 AM POLICY CHECKER - 03/30/2024 11:59 PM POLICY CHECKER Hospital Encounter [address] [address] Discharge Disposition: Discharge to home or self care 03/29/2024 3:30 AM POLICY CHECKER - 03/29/2024 11:59 PM POLICY CHECKER Hospital Encounter [address] [address] Discharge Disposition: Discharge to home or self care 03/28/2024 4:00 AM POLICY CHECKER - 03/28/2024 11:59 PM POLICY CHECKER Hospital Encounter [address] [address] Discharge Disposition: Discharge to home or self care 03/27/2024 4:00 AM POLICY CHECKER - 03/27/2024 11:59 PM POLICY CHECKER Hospital Encounter [address] [address] Discharge Disposition: Discharge to home or self care 03/24/2024 4:00 AM POLICY CHECKER - 03/24/2024 11:59 PM POLICY CHECKER Hospital Encounter [address] [address] Discharge Disposition: Discharge to home or self care 03/23/2024 4:00 AM POLICY CHECKER - 03/23/2024 11:59 PM POLICY CHECKER Hospital Encounter [address] [place] [address] Discharge Disposition: Discharge to home or self care 03/22/2024 4:00 AM POLICY CHECKER - 03/22/2024 11:59 PM POLICY CHECKER Hospital Encounter [address] [address] Discharge Disposition: Discharge to home or self care 03/21/2024 11:00 AM POLICY CHECKER - 03/21/2024 11:59 PM POLICY CHECKER Hospital Encounter [facility] Radiology [facility] [address] [place] [address] Abscess Discharge Disposition: Discharge to home or self care 03/21/2024 4:00 AM POLICY CHECKER - 03/21/2024 11:59 PM POLICY CHECKER Hospital Encounter [address] [address] Discharge Disposition: Discharge to home or self care 03/20/2024 4:00 AM POLICY CHECKER - 03/20/2024 11:59 PM POLICY CHECKER Hospital Encounter [address] [address] Discharge Disposition: Discharge to home or self care 03/19/2024 4:00 AM POLICY CHECKER - 03/19/2024 11:59 PM POLICY CHECKER Hospital Encounter [address] [address] Discharge Disposition: Discharge to home or self care 03/18/2024 4:00 AM POLICY CHECKER - 03/18/2024 11:59 PM POLICY CHECKER Hospital Encounter [address] [address] Discharge Disposition: Discharge to home or self care 03/16/2024 11:51 AM POLICY CHECKER - 03/16/2024 11:59 PM POLICY CHECKER Hospital Encounter [address] [address] Discharge Disposition: Discharge to home or self care 03/15/2024 3:00 PM POLICY CHECKER Office Visit [facility] Infectious Diseases [address] [place] [address] [address] [place] [address] Tutu Sampson MD Empyema ([facility]); Intra-abdominal abscess (HCC) 03/15/2024 11:00 AM POLICY CHECKER - 03/15/2024 11:59 PM POLICY CHECKER Hospital Encounter [facility] Radiology [facility] ([facility]) [address] [place] [address] Manuel Brock MD PhD Empyema ([facility]); Intra-abdominal infection Discharge Disposition: Discharge to home or self care 03/15/2024 4:00 AM POLICY CHECKER - 03/15/2024 11:59 PM POLICY CHECKER Hospital Encounter [address] [address] Discharge Disposition: Discharge to home or self care 03/14/2024 4:16 AM POLICY CHECKER - 03/14/2024 11:59 PM POLICY CHECKER Hospital Encounter [address] [address] Discharge Disposition: Discharge to home or self care 03/13/2024 4:00 AM POLICY CHECKER - 03/13/2024 11:59 PM POLICY CHECKER Hospital Encounter [address] [address] Discharge Disposition: Discharge to home or self care 03/10/2024 Telephone [facility] [place] [address] Rylee Carson RN 03/09/2024 4:00 AM POLICY CHECKER - 03/09/2024 11:59 PM POLICY CHECKER Hospital Encounter [address] [address] Discharge Disposition: Discharge to home or self care 03/08/2024 4:00 AM POLICY CHECKER - 03/08/2024 11:59 PM POLICY CHECKER Hospital Encounter [address] [address] Discharge Disposition: Discharge to home or self care 03/08/2024 Telephone [facility] Infectious Diseases [address] [place] [address] [place] [address] Zohreh Perez 03/08/2024 Orders Only [facility] Infectious Diseases [address] [facility] [address] [place] [address] [place] [address] Zohreh Perez Empyema (HCC) (Primary Dx); Intra-abdominal infection 03/07/2024 Documentation [facility] Infectious Diseases [address] [facility] [address] [place] [address] Fabiana Randissa KAUSHAL Garcia 02/22/2024 7:39 PM POLICY CHECKER - 03/07/2024 5:15 PM POLICY CHECKER Hospital Encounter [facility] [address] [facility] [place] [address] Chester Cifuentes MD Cowan, MD Sandra Dukes, MD Edward Ambriz, MD Brian Sanon Steven R., MD Perihepatic fluid collection (Primary Dx); Abscess Discharge Disposition: Discharge to a [facility] 02/21/2024 Telephone [facility] Surgery [address] [place] [address] Medical Office Building [address] [place] [address] Brenda Perez, SAM 02/21/2024 Telephone [facility] Cardiology [address] [facility] 8th [place] [address] [place] [phone] Cee Bennett 02/14/2024 Orders Only [facility] Orthopaedic Surgery [address] [facility] 6th [place] [address] [place] [address] Nettie Reyes NP 02/11/2024 9:54 AM POLICY CHECKER - 02/11/2024 11:59 PM POLICY CHECKER Hospital Encounter [facility] Radiology [facility] [address] [place] [address] Abscess Discharge Disposition: Discharge to home or self care 02/10/2024 Orders Only [facility] [phone] Medicine 02/08/2024 10:15 AM POLICY CHECKER Office Visit [facility] Surgery [address] [facility] Floor 5 [place] [phone] Migel Torres MD Colon adenocarcinoma (HCC) (Primary Dx) 02/08/2024 Telephone [facility] Radiology [facility] [address] [place] [address] Rylee Carson RN 02/07/2024 Orders Only [facility] Orthopaedic Surgery [address] [facility] 6th [place] [address] [place] [address] Nettie Reyes NP from Last 3 Months Immunizations Immunization Administration Dates Next Due Influenza, Quad, Adjuvantated, Intramuscular Influenza, Trivalent, High D ose, Split, Preservative Free, Intramuscular 01/06/2019,12/10/2017 Influenza, Trivalent, Preservative Free, Intramu scular 01/23/2009 Influenza, Unspecified 04/10/2023,11/22/2020 Teros (J&J) SARS-CoV-2 Vaccination 05/28/2020 Pneumococcal Polysaccharide PPV23 07/08/2007 Surgical History Surgery Date Site/Laterality Comments HI COLONOSCOPY FLX DX W/LEEROY J SPEC WHEN PFRMD Complete Colonoscopy - (Added by TW Conv) COLONOSCOPY multiple procedures--last 06/20/2014 TRACHEOSTOMY 06/01/2017 LARYNGOSCOPY 06/01/2017 Microlaryngoscopy with Biopsy MASTECTOMY Left CORONARY ANGIOPLASTY WITH STENT PLACEMENT 06/11--? Type, ?Site.18 Heart Stents x 2 in 2018 HI UNLISTED PROCEDURE BREAST Left mastectomy BREAST BIOPSY 05/11/2005 Left COLON SURGERY For colon cancer UPPER GASTROINTESTINAL ENDOSCOPY 12/09/2017 IMAGE GUIDED DRAINAGE VISCERAL FLUID COLLECTION 01/17/2024 N/A IMAGE GUIDED DRAINAGE PERITONEAL OR RETROPERITONEAL FLUID COLLECTION 01/19/2024 N/A US GUIDED THORACENTESIS 01/24/2024 N/A RIGHT COLECTOMY 01/06/2024 Open extended right colectomy with ileo descending anastomosis and small bowel resection SMALL BOWEL RESECTION 01/06/2024 Open extended right colectomy with ileo descending anastomosis and small bowel resection ABSCESS CATHETER INJECTION 02/11/2024 N/A CHEST DRAINAGE W IMAGING RIGHT 02/24/2024 Right IMAGE GUIDED DRAINAGE PERITONEAL OR RETROPERITONEAL FLUID COLLECTION 02/25/2024 N/A ABSCESS TUBE EXCHANGE 03/01/2024 N/A ABSCESS CATHETER INJECTION 03/21/2024 N/A Medical History Medical History Date Comments Personal history of malignan t neoplasm of breast Malignant Carcinoma Of The B reast - Grade I/III. T1N0M0. s/p mastectomy. Currently ANSELMO. (Added by TW Conv) Tobacco abuse counseling Encount er for smoking cessation counseling - 06/11/11 (Added by TW Conv) History of modified radical mastectomy of left breast 2006 Laceration of paranasal sinu s with complication 2017 laceration in the right piri form sinus consistent with possible prior intubation injury and extensive edema. required tracheostomy. Heart attack (HCC) 05/2017 Was cleaning basement floor of dog urine with Chlorax. S/p Heart stents x2. Currently has F/u with PCP. Dementia (HCC) Alzheimer's dise ase Osteoporosis Vitamin D deficiency S/P colon resection Anxiety Falls 05/29/2017 Cardiac arrest ([facility]) V-fib arres t 04/2017 likely 2/2 STEMI STEMI (ST elevation myocardi al infarction) (HCC) 04/2017 Hyperlipidemia Respiratory failure ([facility]) Subglottic stenosis History of unsteady gait Cardiac arrest with ventricu lar fibrillation (HCC) Coronary artery disease Hiatal hernia Gastric ulcer 11/2017 Personal history of malignan t neoplasm of rectum, rectosigmoid junction, and anus Malignant Rectal Neoplasm - , s/p resection. Currently ANSELMO. (Added by TW Conv) Malignant neoplasm of female breast (HCC) Malignant neoplasm of breast - DCIS, and invasive mucinsou carcinoma. GI/III. T1N0M0. s/p Mastectomy 2005. Currently ANSELMO. (Added by TW Conv) Breast cancer (HCC) Rectal cancer (HCC) Tracheostomy in place (HCC) 04/2017 Shil ey #6 uncuff C. difficile diarrhea 05/05/2021 History of biliary stent insertion 04/24/2021 Added automatically from request for surgery [id number] Common bile duct dilation 04/06/2021 Added automatically from request for surgery [id number] Choledocholithiasis 05/02/2021 Added automa tically from request for surgery [id number] Malignant neoplasm of female breast (HCC) 12/31/2010 Description: Malignant Fema le Breast Neoplasm, NOS Family History Medical History Relation Name Comments No Known Problems Daughter estranged, limited info available Breast cancer Maternal Grandmother ?? Breast cancer Maternal Half-Sister not CO D Breast cancer Mother ?? Hypertension Mother No Known Problems Son Crook Anesthesia problems Neg Hx Relation Name Status Comments Daughter Alive Father (Age 80) Maternal Grandfather Maternal Grandmother Maternal Half-Brother Alive Maternal Half-Sister Mother (Age 80) Paternal Grandfather Paternal Grandmother Son Ethan Alive Social History Tobacco Use Types Packs/Day Years Used Date Smoking Tobacco: Former Cigarettes 1 53.2 1 964 - 05/23/2016 Smokeless Tobacco: Never Tobacco Cessation:Counseling Given: Not Answered Alcohol Use Standard Drinks/Week Comments No 0 (1 standard drink = 0.6 oz pur e alcohol) [facility] Utilities Answer Date Recorded In the past 12 months has e [employer] WiFi, gas, oil, or water Today [employer] threatened to shut off services in your home? No 02/25/2024 Social Connection and Isolat ion Panel [NHANES] Answer Date Recorded In a typical week, how many times do you talk on the phone with family, friends, or neighbors? Three times a week 02/25/2024 How often do you get togethe r with friends or relatives? Three times a week 02/25/2024 How often do you attend chur ch or yazidism services? More than 4 times per year 02/25/2024 Do you belong to any clubs o r organizations such as orthodoxy groups, unions, fraternal or athletic groups, or school groups? No 02/25/2024 How often do you attend meet ings of the clubs or organizations you belong to? Never 02/25/2024 Are you , , di vorced, , never , or living with a partner? 02/25/2024 AUDIT-C Answer Date Recorded Q1: How often do you have a drink containing alcohol? Never 12/28/2023 Q2: How many drinks containi ng alcohol do you have on a typical day when you are drinking? Patient does not drink Q3: How often do you have si x or more drinks on one occasion? Never 12/28/2023 Overall Financial Resource Strain (CARDIA) Answe r Date Recorded How hard is it for you to pa y for the very basics like food, housing, medical care, and heating? Not hard at all 02/25/2024 PHQ-2 Answer Date Recorded PHQ-2 Total Score 2 02/25/2024 Hunger Vital Sign Answer Date Recorded Within the past 12 months, y ou worried that your food would run out before you got the money to buy more. Never true 02/24/19 25 Within the past 12 months, t he food you bought just didn't last and you didn't have money to get more. Never true 02/25/2024 PRAPARE - Transportation Answer Date Re corded In the past 12 months, has l ack of transportation kept you from medical appointments or from getting medications? No 04/2024 In the past 12 months, has l ack of transportation kept you from meetings, work, or from getting things needed for daily living? No 02/25/2024 Housing Stability Vital Sign Answer Herman e Recorded In the last 12 months, was t here a time when you were not able to pay the mortgage or rent on time? No 02/25/2024 In the past 12 months, how m any times have you moved where you were living? 0 02/25/2024 At any time in the past 12 m [facility], were you homeless or living in a residential (including now)? No 02/25/2024 Personal Safety Answer Date Recorded Have you ever been in or are you currently in a harmful physical or emotional relationship or is someone making you feel afraid or unsafe? Patient unable to answer 03/21/2024 Comments No Sex and Gender Information Value Date Recorded Sex Assigned at Not on file Legal Sex Female 5:35 AM POLICY CHECKER Gender Identity Not on file Sexual Orientation Not on file Obstetrics History Last Filed Vital Signs Vital Sign Reading Time Taken Comments Blood Pressure 156/40 03/21/2024 2:10 PM POLICY CHECKER Pulse 72 03/21/2024 2:10 PM POLICY CHECKER Temperature 36 C (96.8 F) 03/21/2024 12:10 PM POLICY CHECKER Respiratory Rate 16 03/21/2024 2:10 PM POLICY CHECKER Oxygen Saturation 100% 03/21/2024 2:10 PM POLICY CHECKER Inhaled Oxygen Concentration - - Weight 57.2 kg (126 lb 1.7 oz) 03/21/2024 12:22 PM POLICY CHECKER Height 149.9 cm (4' 11 ) 02/24/2024 11:52 AM POLICY CHECKER Body Mass Index 25.47 02/24/2024 11:52 AM POLICY CHECKER Plan of Treatment Health Maintenance Due Date Last Done Comments Osteoporosis Screening-Bone Density Scan 1942 DTaP/Tdap/Td Vaccine (1 - Tdap) 1953 Hepatitis B Screening 1960 Zoster Vaccine (1 of 2) 1992 Well Visit 65+ 10/14/2007 Pneumococcal vaccine 65+ (2 of 2 - PCV) 07/07/2008 07/08/2007 Covid-19 Vaccine (2 - 2023-2 5 season) 2023 05/28/2020 Influenza Vaccine (#1) 2023 , 12/11/2020, 11/22/2020, Additional history exists Depression Screening 02/21/2025 02/22/2024, 10/17/2023, 06/23/2018, Additional history exists Fall Risk Assessment 03/21/2025 03/21/2024 Goals Goal Patient Goal Type Associated Problems Recent Progress Patient-Stated? Author Colorectal Pre-Surgical Steps Care Plan Colorectal Pre-Surgical Plan Dyana Amezcua RN Medical Devices Implanted Type Area Educational Administrator Device Identifier Shelf Expiration Date Model / Serial / Lot Stent Implanted:Qty: 2 Stent Coronary [employer] Ell-3000 Eliachar 15mm 05i03pm Medium Stent Laryngeal - [id number] - [id number] Implanted:Qty: 1 on 04/13/2019 by Jean Claude Mendoza MD PhD at [facility] Stent N/A: Pharynx [employer] 04/14/2019 ELL-3000 / [id number] / [employer] St-512-S 12mm 1 Piece Construction Ultra Smooth Plus Surface Treatement - [id number] Implanted:Qty: 1 on 01/05/2019 by Jean Claude Mendoza MD PhD at [facility] Tube N/A: Throat [employer] ST-512-S / / [employer] Lsf-25 Surface Button Suture Hole 10mm Stent Laryngeal Silicone Adult - [id number] Implanted:Qty: 1 on 06/02/2018 by Jean Claude Mendoza MD PhD at [facility] N/A: Throat [employer] LSF-25 / / [id number] [employer]plant[employer] 23-700-40 [employer] 3x2in Nonreinforced Permanent Implantable Thk.04in - [id number] Implanted:Qty: 1 on 10/06/2018 by Jean Claude Mendoza MD PhD at [facility] N/A: Throat [employer]plant[employer] [id number] 04/13/2022 23-700-40 / / [id number] Explanted Type Area Educational Administrator Device Identifier Shelf Expiration Date Model / Serial / Lot [employer] Joe [id number] Advanix 10fr 5cm Rapid Exchange Temporary [place] Stent - [id number] Implanted:Qty: 1 on 04/08/2021 by Guzman Lynn MD at [facility] Explanted:Qty: 1 on 05/09/2021 by Joao Hinton MD at [facility] Stent Bile Duct [employer] Joe 12/13/2022 [id number] / / [id number] [employer] 6554 Tyler Flexi-Stent 5fr 7cm Small Pigtail Flexible .035in Stent - [id number] Implanted:Qty: 1 on 04/08/2021 by Guzman Lynn MD at [facility] Explanted:Qty: 1 on 05/09/2021 by Joao Hinton MD at [facility] Stent Pancreas [employer] 12/22/2025 [id number] / / [id number] Procedures Procedure Name Priority Date/Time Associated Diagnosis Comments DIFFERENTIAL AUTO STAT 04/18/2024 8:0 0 AM POLICY CHECKER CBC WITH AUTO DIFFERENTIAL STAT 04/18/2024 8:00 AM POLICY CHECKER EGFR Routine 04/17/2024 4:58 AM POLICY CHECKER DIFFERENTIAL AUTO Routine 04/17/2024 4:5 8 AM POLICY CHECKER CBC WITH AUTO DIFFERENTIAL Routine 04/17/2024 4:58 AM POLICY CHECKER COMPREHENSIVE METABOLIC PANEL Routine 04/17/2024 4:58 AM POLICY CHECKER EGFR Routine 04/13/2024 4:00 AM POLICY CHECKER DIFFERENTIAL AUTO Routine 04/13/2024 4:0 0 AM POLICY CHECKER PHOSPHORUS Routine 04/13/2024 4:00 AM POLICY CHECKER MAGNESIUM Routine 04/13/2024 4:00 AM POLICY CHECKER CBC WITH AUTO DIFFERENTIAL Routine 04/13/2024 4:00 AM POLICY CHECKER COMPREHENSIVE METABOLIC PANEL Routine 04/13/2024 4:00 AM POLICY CHECKER EGFR Routine 04/12/2024 4:00 AM POLICY CHECKER PHOSPHORUS Routine 04/12/2024 4:00 AM POLICY CHECKER MAGNESIUM Routine 04/12/2024 4:00 AM POLICY CHECKER BASIC METABOLIC PANEL Routine 04/12/2024 4:00 AM POLICY CHECKER EGFR Routine 04/11/2024 4:00 AM POLICY CHECKER PHOSPHORUS Routine 04/11/2024 4:00 AM POLICY CHECKER MAGNESIUM Routine 04/11/2024 4:00 AM POLICY CHECKER BASIC METABOLIC PANEL Routine 04/11/2024 4:00 AM POLICY CHECKER EGFR Routine 04/10/2024 4:15 AM POLICY CHECKER DIFFERENTIAL AUTO Routine 04/10/2024 4:1 5 AM POLICY CHECKER PHOSPHORUS Routine 04/10/2024 4:15 AM POLICY CHECKER MAGNESIUM Routine 04/10/2024 4:15 AM POLICY CHECKER CBC WITH AUTO DIFFERENTIAL Routine 04/10/2024 4:15 AM POLICY CHECKER COMPREHENSIVE METABOLIC PANEL Routine 04/10/2024 4:15 AM POLICY CHECKER EGFR Routine 04/09/2024 4:30 AM POLICY CHECKER PHOSPHORUS Routine 04/09/2024 4:30 AM POLICY CHECKER MAGNESIUM Routine 04/09/2024 4:30 AM POLICY CHECKER COMPREHENSIVE METABOLIC PANEL Routine 04/09/2024 4:30 AM POLICY CHECKER EGFR Routine 04/08/2024 4:30 AM POLICY CHECKER CRITICAL RESULT CALLBACK CHEMISTRY Routine 04/08/2024 4:30 AM POLICY CHECKER PHOSPHORUS Routine 04/08/2024 4:30 AM POLICY CHECKER MAGNESIUM Routine 04/08/2024 4:30 AM POLICY CHECKER COMPREHENSIVE METABOLIC PANEL Routine 04/08/2024 4:30 AM POLICY CHECKER EGFR Routine 04/06/2024 4:00 AM POLICY CHECKER DIFFERENTIAL AUTO Routine 04/06/2024 4:0 0 AM POLICY CHECKER COMPREHENSIVE METABOLIC PANEL Routine 04/06/2024 4:00 AM POLICY CHECKER CBC WITH AUTO DIFFERENTIAL Routine 04/06/2024 4:00 AM POLICY CHECKER EGFR Routine 04/05/2024 4:00 AM POLICY CHECKER BASIC METABOLIC PANEL Routine 04/05/2024 4:00 AM POLICY CHECKER EGFR Routine 04/04/2024 3:45 AM POLICY CHECKER BASIC METABOLIC PANEL Routine 04/04/2024 3:45 AM POLICY CHECKER EGFR STAT 04/03/2024 6:35 AM POLICY CHECKER DIFFERENTIAL AUTO STAT 04/03/2024 6:3 5 AM POLICY CHECKER CBC WITH AUTO DIFFERENTIAL STAT 04/03/2024 6:35 AM POLICY CHECKER BASIC METABOLIC PANEL STAT 04/03/2024 6:35 AM POLICY CHECKER EGFR Routine 04/03/2024 3:10 AM POLICY CHECKER BASIC METABOLIC PANEL Routine 04/03/2024 3:10 AM POLICY CHECKER EGFR Routine 04/01/2024 4:00 AM POLICY CHECKER BASIC METABOLIC PANEL Routine 04/01/2024 4:00 AM POLICY CHECKER EGFR Routine 03/31/2024 4:30 AM POLICY CHECKER FERRITIN Routine 03/31/2024 4:30 AM POLICY CHECKER HEMOGLOBIN Routine 03/31/2024 4:30 AM POLICY CHECKER HEMATOCRIT Routine 03/31/2024 4:30 AM POLICY CHECKER BASIC METABOLIC PANEL Routine 03/31/2024 4:30 AM POLICY CHECKER C. DIFFICILE TESTING Routine 03/30/2024 5:18 PM POLICY CHECKER EGFR STAT 03/30/2024 4:00 AM POLICY CHECKER DIFFERENTIAL AUTO STAT 03/30/2024 4:0 0 AM POLICY CHECKER PHOSPHORUS STAT 03/30/2024 4:00 AM POLICY CHECKER MAGNESIUM STAT 03/30/2024 4:00 AM POLICY CHECKER CBC WITH AUTO DIFFERENTIAL STAT 03/30/2024 4:00 AM POLICY CHECKER COMPREHENSIVE METABOLIC PANEL STAT 03/30/2024 4:00 AM POLICY CHECKER EGFR STAT 03/29/2024 3:30 AM POLICY CHECKER DIFFERENTIAL AUTO Routine 03/29/2024 3:3 0 AM POLICY CHECKER CBC WITH AUTO DIFFERENTIAL Routine 03/29/2024 3:30 AM POLICY CHECKER BASIC METABOLIC PANEL STAT 03/29/2024 3:30 AM POLICY CHECKER EGFR Routine 03/28/2024 4:00 AM POLICY CHECKER RENAL FUNCTION PANEL Routine 03/28/2024 4:00 AM POLICY CHECKER DIFFERENTIAL AUTO Routine 03/27/2024 9:4 6 AM POLICY CHECKER CBC WITH AUTO DIFFERENTIAL Routine 03/27/2024 9:46 AM POLICY CHECKER EGFR STAT 03/27/2024 4:00 AM POLICY CHECKER DIFFERENTIAL AUTO STAT 03/27/2024 4:0 0 AM POLICY CHECKER CBC WITH AUTO DIFFERENTIAL STAT 03/27/2024 4:00 AM POLICY CHECKER PHOSPHORUS Routine 03/27/2024 4:00 AM POLICY CHECKER MAGNESIUM Routine 03/27/2024 4:00 AM POLICY CHECKER COMPREHENSIVE METABOLIC PANEL STAT 03/27/2024 4:00 AM POLICY CHECKER EGFR Routine 03/24/2024 4:00 AM POLICY CHECKER PHOSPHORUS Routine 03/24/2024 4:00 AM POLICY CHECKER BASIC METABOLIC PANEL Routine 03/24/2024 4:00 AM POLICY CHECKER EGFR Routine 03/23/2024 4:00 AM POLICY CHECKER DIFFERENTIAL AUTO Routine 03/23/2024 4:0 0 AM POLICY CHECKER CBC WITH AUTO DIFFERENTIAL Routine 03/23/2024 4:00 AM POLICY CHECKER PHOSPHORUS Routine 03/23/2024 4:00 AM POLICY CHECKER MAGNESIUM Routine 03/23/2024 4:00 AM POLICY CHECKER COMPREHENSIVE METABOLIC PANEL Routine 03/23/2024 4:00 AM POLICY CHECKER PHOSPHORUS Routine 03/22/2024 4:00 AM POLICY CHECKER MAGNESIUM Routine 03/22/2024 4:00 AM POLICY CHECKER EGFR Routine 03/22/2024 4:00 AM POLICY CHECKER COMPREHENSIVE METABOLIC PANEL Routine 03/22/2024 4:00 AM POLICY CHECKER ABSCESS CATHETER INJECTION Schedule Routine, Read Routine (OP Routine) 03/21/2024 2:00 PM POLICY CHECKER Abscess EGFR STAT 03/21/2024 4:00 AM POLICY CHECKER COMPREHENSIVE METABOLIC PANEL STAT 03/21/2024 4:00 AM POLICY CHECKER C. DIFFICILE TESTING Routine 03/20/2024 7:00 PM POLICY CHECKER EGFR Routine 03/20/2024 4:00 AM POLICY CHECKER DIFFERENTIAL AUTO Routine 03/20/2024 4:0 0 AM POLICY CHECKER TRIGLYCERIDES Routine 03/20/2024 4:00 AM POLICY CHECKER PHOSPHORUS, SERUM Routine 03/20/2024 4:0 0 AM POLICY CHECKER MAGNESIUM Routine 03/20/2024 4:00 AM POLICY CHECKER CBC WITH AUTO DIFFERENTIAL Routine 03/20/2024 4:00 AM POLICY CHECKER COMPREHENSIVE METABOLIC PANEL Routine 03/20/2024 4:00 AM POLICY CHECKER EGFR STAT 03/19/2024 4:00 AM POLICY CHECKER COMPREHENSIVE METABOLIC PANEL STAT 03/19/2024 4:00 AM POLICY CHECKER PHOSPHORUS Routine 03/18/2024 4:00 AM POLICY CHECKER EGFR Routine 03/16/2024 11:51 AM POLICY CHECKER DIFFERENTIAL AUTO Routine 03/16/2024 11: 51 AM POLICY CHECKER CBC WITH AUTO DIFFERENTIAL Routine 03/16/2024 11:51 AM POLICY CHECKER COMPREHENSIVE METABOLIC PANEL Routine 03/16/2024 11:51 AM POLICY CHECKER MISLABLED TEST Routine 03/15/2024 4:[address] CHEST ABDOMEN PELVIS W CONTRAST Schedule Routine, Read Routine (OP Routine) 03/15/2024 3:00 PM POLICY CHECKER Empyema (HCC) Intra-abdominal infection EGFR Routine 03/15/2024 4:00 AM POLICY CHECKER PHOSPHORUS Routine 03/15/2024 4:00 AM POLICY CHECKER MAGNESIUM Routine 03/15/2024 4:00 AM POLICY CHECKER COMPREHENSIVE METABOLIC PANEL Routine 03/15/2024 4:00 AM POLICY CHECKER EGFR Routine 03/14/2024 4:16 AM POLICY CHECKER PHOSPHORUS Routine 03/14/2024 4:16 AM POLICY CHECKER MAGNESIUM Routine 03/14/2024 4:16 AM POLICY CHECKER COMPREHENSIVE METABOLIC PANEL Routine 03/14/2024 4:16 AM POLICY CHECKER MANUAL DIFFERENTIAL Routine 03/13/2024 4 :20 AM POLICY CHECKER EGFR Routine 03/13/2024 4:20 AM POLICY CHECKER PHOSPHORUS Routine 03/13/2024 4:20 AM POLICY CHECKER MAGNESIUM Routine 03/13/2024 4:20 AM POLICY CHECKER CBC WITH AUTO DIFFERENTIAL Routine 03/13/2024 4:20 AM POLICY CHECKER COMPREHENSIVE METABOLIC PANEL Routine 03/13/2024 4:20 AM POLICY CHECKER EGFR STAT 03/09/2024 4:00 AM POLICY CHECKER DIFFERENTIAL AUTO STAT 03/09/2024 4:0 0 AM POLICY CHECKER PHOSPHORUS STAT 03/09/2024 4:00 AM POLICY CHECKER MAGNESIUM STAT 03/09/2024 4:00 AM POLICY CHECKER CBC WITH AUTO DIFFERENTIAL STAT 03/09/2024 4:00 AM POLICY CHECKER COMPREHENSIVE METABOLIC PANEL STAT 03/09/2024 4:00 AM POLICY CHECKER EGFR Routine 03/08/2024 12:52 PM POLICY CHECKER COMPREHENSIVE METABOLIC PANEL Routine 03/08/2024 12:52 PM POLICY CHECKER MAGNESIUM Routine 03/08/2024 4:00 AM POLICY CHECKER CRITICAL RESULT CALLBACK CHEMISTRY Routine 03/08/2024 4:00 AM POLICY CHECKER EGFR Routine 03/08/2024 4:00 AM POLICY CHECKER DIFFERENTIAL AUTO Routine 03/08/2024 4:0 0 AM POLICY CHECKER APTT Routine 03/08/2024 4:00 AM POLICY CHECKER PROTIME-INR Routine 03/08/2024 4:00 AM POLICY CHECKER CBC WITH AUTO DIFFERENTIAL Routine 03/08/2024 4:00 AM POLICY CHECKER COMPREHENSIVE METABOLIC PANEL Routine 03/08/2024 4:00 AM POLICY CHECKER POCT GLUCOSE DEVICE Routine 03/07/2024 1 2:[address] ABDOMEN PELVIS W CONTRAST IP Routine 03/07/2024 12:08 PM POLICY CHECKER POCT GLUCOSE DEVICE Routine 03/07/2024 9 :24 AM POLICY CHECKER POCT GLUCOSE DEVICE Routine 03/06/2024 4 :50 PM POLICY CHECKER POCT GLUCOSE DEVICE Routine 03/06/2024 1 2:18 PM POLICY CHECKER CBC WITH AUTO DIFFERENTIAL Timed 03/06/2024 8:53 AM POLICY CHECKER DIFFERENTIAL AUTO Timed 03/06/2024 8:5 3 AM POLICY CHECKER POCT GLUCOSE DEVICE Routine 03/06/2024 8 :38 AM POLICY CHECKER CBC WITHOUT DIFFERENTIAL Routine 03/06/2024 5:02 AM POLICY CHECKER PREPARE RBC Timed 03/05/2024 11:29 PM POLICY CHECKER EGFR Timed 03/05/2024 10:37 PM POLICY CHECKER CBC WITHOUT DIFFERENTIAL Timed 03/05/2024 10:37 PM POLICY CHECKER BASIC METABOLIC PANEL Timed 03/05/2024 10:37 PM POLICY CHECKER POCT GLUCOSE DEVICE Routine 03/05/2024 8 :48 PM POLICY CHECKER POCT GLUCOSE DEVICE Routine 03/05/2024 4 :37 PM POLICY CHECKER POCT GLUCOSE DEVICE Routine 03/05/2024 1 2:05 PM POLICY CHECKER POCT GLUCOSE DEVICE Routine 03/05/2024 7 :41 AM POLICY CHECKER EGFR Timed 03/05/2024 12:14 AM POLICY CHECKER MAGNESIUM Timed 03/05/2024 12:14 AM POLICY CHECKER PHOSPHORUS Timed 03/05/2024 12:14 AM POLICY CHECKER BASIC METABOLIC PANEL Timed 03/05/2024 12:14 AM POLICY CHECKER CBC WITHOUT DIFFERENTIAL Timed 03/05/2024 12:14 AM POLICY CHECKER POCT GLUCOSE DEVICE Routine 03/04/2024 1 1:30 PM POLICY CHECKER POCT GLUCOSE DEVICE Routine 03/04/2024 6 :28 PM POLICY CHECKER TYPE AND SCREEN Timed 03/04/2024 11:16 AM POLICY CHECKER POCT GLUCOSE DEVICE Routine 03/04/2024 1 1:11 AM POLICY CHECKER POCT GLUCOSE DEVICE Routine 03/04/2024 8 :09 AM POLICY CHECKER EGFR Timed 03/03/2024 11:18 PM POLICY CHECKER CBC WITHOUT DIFFERENTIAL Timed 03/03/2024 11:18 PM POLICY CHECKER PHOSPHORUS Timed 03/03/2024 11:18 PM POLICY CHECKER MAGNESIUM Timed 03/03/2024 11:18 PM POLICY CHECKER BASIC METABOLIC PANEL Timed 03/03/2024 11:18 PM POLICY CHECKER POCT GLUCOSE DEVICE Routine 03/03/2024 9 :06 PM POLICY CHECKER POCT GLUCOSE DEVICE Routine 03/03/2024 5 :08 PM POLICY CHECKER POCT GLUCOSE DEVICE Routine 03/03/2024 1 1:46 AM POLICY CHECKER POCT GLUCOSE DEVICE Routine 03/03/2024 8 :48 AM POLICY CHECKER POCT GLUCOSE DEVICE Routine 03/02/2024 9 :09 PM POLICY CHECKER EGFR Timed 03/02/2024 9:08 PM POLICY CHECKER PHOSPHORUS Timed 03/02/2024 9:08 PM POLICY CHECKER MAGNESIUM Timed 03/02/2024 9:08 PM POLICY CHECKER CBC WITHOUT DIFFERENTIAL Timed 03/02/2024 9:08 PM POLICY CHECKER BASIC METABOLIC PANEL Timed 03/02/2024 9:08 PM POLICY CHECKER XR CHEST 1 VIEW IP Routine 03/02/2024 6:42 PM POLICY CHECKER POCT GLUCOSE DEVICE Routine 03/02/2024 4 :35 PM POLICY CHECKER POCT GLUCOSE DEVICE Routine 03/02/2024 1 2:33 PM POLICY CHECKER INFECTION PREVENTION VRE CULTURE Routine 03/02/2024 11:17 AM POLICY CHECKER C. DIFFICILE TESTING Routine 03/02/2024 11:17 AM POLICY CHECKER XR CHEST 1 VIEW IP Routine 03/02/2024 10:26 AM POLICY CHECKER POCT GLUCOSE DEVICE Routine 03/02/2024 8 :21 AM POLICY CHECKER EGFR Timed 03/02/2024 12:06 AM POLICY CHECKER PHOSPHORUS Timed 03/02/2024 12:06 AM POLICY CHECKER MAGNESIUM Timed 03/02/2024 12:06 AM POLICY CHECKER BASIC METABOLIC PANEL Timed 03/02/2024 12:06 AM POLICY CHECKER CBC WITHOUT DIFFERENTIAL Timed 03/02/2024 12:06 AM POLICY CHECKER POCT GLUCOSE DEVICE Routine 03/01/2024 8 :18 PM POLICY CHECKER POCT GLUCOSE DEVICE Routine 03/01/2024 6 :39 PM POLICY CHECKER ABSCESS TUBE EXCHANGE IP Routine 03/01/2024 12:40 PM POLICY CHECKER HEPATIC FUNCTION PANEL Routine 10:12 PM POLICY CHECKER EGFR Routine 02/29/2024 10:12 PM POLICY CHECKER CBC WITHOUT DIFFERENTIAL Routine 02/29/2024 10:12 PM POLICY CHECKER BASIC METABOLIC PANEL Routine 02/29/2024 10:12 PM POLICY CHECKER PHOSPHORUS Routine 02/29/2024 10:12 PM POLICY CHECKER MAGNESIUM Routine 02/29/2024 10:12 PM POLICY CHECKER POCT GLUCOSE DEVICE Routine 02/29/2024 8 :[address] CHEST ABDOMEN PELVIS W CONTRAST IP Routine 02/29/2024 5:24 PM POLICY CHECKER POCT GLUCOSE DEVICE Routine 02/29/2024 4 :58 PM POLICY CHECKER POCT GLUCOSE DEVICE Routine 02/29/2024 1 2:21 PM POLICY CHECKER POCT GLUCOSE DEVICE Routine 02/29/2024 8 :23 AM POLICY CHECKER EGFR Routine 02/28/2024 9:37 PM POLICY CHECKER CBC WITHOUT DIFFERENTIAL Routine 02/28/2024 9:37 PM POLICY CHECKER BASIC METABOLIC PANEL Routine 02/28/2024 9:37 PM POLICY CHECKER PHOSPHORUS Routine 02/28/2024 9:37 PM POLICY CHECKER MAGNESIUM Routine 02/28/2024 9:37 PM POLICY CHECKER POCT GLUCOSE DEVICE Routine 02/28/2024 8 :33 PM POLICY CHECKER POCT GLUCOSE DEVICE Routine 02/28/2024 4:38 PM POLICY CHECKER POCT GLUCOSE DEVICE Routine 02/28/2024 1 2:59 PM POLICY CHECKER POCT GLUCOSE DEVICE Routine 02/28/2024 1 1:42 AM POLICY CHECKER POCT GLUCOSE DEVICE Routine 02/28/2024 7 :54 AM POLICY CHECKER POCT GLUCOSE DEVICE Routine 02/27/2024 8 :39 PM POLICY CHECKER POCT GLUCOSE DEVICE Routine 02/27/2024 4 :35 PM POLICY CHECKER POCT GLUCOSE DEVICE Routine 02/27/2024 1 1:44 AM POLICY CHECKER XR CHEST 1 VIEW IP Routine 02/27/2024 8:10 AM POLICY CHECKER POCT GLUCOSE DEVICE Routine 02/27/2024 7 :55 AM POLICY CHECKER EGFR Routine 02/26/2024 9:45 PM POLICY CHECKER BASIC METABOLIC PANEL Routine 02/26/2024 9:45 PM POLICY CHECKER CBC WITHOUT DIFFERENTIAL Routine 02/26/2024 9:45 PM POLICY CHECKER PHOSPHORUS Routine 02/26/2024 9:45 PM POLICY CHECKER MAGNESIUM Routine 02/26/2024 9:45 PM POLICY CHECKER POCT GLUCOSE DEVICE Routine 02/26/2024 8 :33 PM POLICY CHECKER POCT GLUCOSE DEVICE Routine 02/26/2024 5 :56 PM POLICY CHECKER POCT GLUCOSE DEVICE Routine 02/26/2024 1 2:10 PM POLICY CHECKER POCT GLUCOSE DEVICE Routine 02/26/2024 7 :47 AM POLICY CHECKER EGFR Routine 02/25/2024 11:37 PM POLICY CHECKER PHOSPHORUS Routine 02/25/2024 11:37 PM POLICY CHECKER MAGNESIUM Routine 02/25/2024 11:37 PM POLICY CHECKER BASIC METABOLIC PANEL Routine 02/25/2024 11:37 PM POLICY CHECKER CBC WITHOUT DIFFERENTIAL Routine 02/25/2024 11:37 PM POLICY CHECKER POCT GLUCOSE DEVICE Routine 02/25/2024 8 :54 PM POLICY CHECKER POCT GLUCOSE DEVICE Routine 02/25/2024 4 :41 PM POLICY CHECKER POCT GLUCOSE DEVICE Routine 02/25/2024 2 :42 PM POLICY CHECKER IMAGE GUIDED DRAINAGE PERITONEAL OR RETROPERITONEAL FLUID COLLECTION IP Routine 02/25/2024 1:44 PM POLICY CHECKER AEROBIC AND ANAEROBIC CULTURE AND GRAM STAIN Routine 02/25/2024 1:40 PM POLICY CHECKER POCT GLUCOSE DEVICE Routine 02/25/2024 6 :45 AM POLICY CHECKER POCT GLUCOSE DEVICE Routine 02/25/2024 1 2:48 AM POLICY CHECKER EGFR Routine 02/24/2024 10:21 PM POLICY CHECKER PHOSPHORUS Routine 02/24/2024 10:21 PM POLICY CHECKER MAGNESIUM Routine 02/24/2024 10:21 PM POLICY CHECKER BASIC METABOLIC PANEL Routine 02/24/2024 10:21 PM POLICY CHECKER CBC WITHOUT DIFFERENTIAL Routine 02/24/2024 10:21 PM POLICY CHECKER POCT GLUCOSE DEVICE Routine 02/24/2024 5 :55 PM POLICY CHECKER AEROBIC AND ANAEROBIC CULTURE AND GRAM STAIN Routine 02/24/2024 1:13 PM POLICY CHECKER CHEST DRAINAGE W IMAGING RIGHT ED 02/24/2024 1:05 PM POLICY CHECKER CBC WITHOUT DIFFERENTIAL Timed 02/24/2024 10:06 AM POLICY CHECKER TRANSFUSE RED BLOOD CELLS Timed 02/24/2024 6:17 AM POLICY CHECKER PREPARE RBC Timed 02/24/2024 5:32 AM POLICY CHECKER TYPE AND SCREEN Timed 02/24/2024 2:[address] CHEST W CONTRAST ED 02/23/2024 1 0:41 PM POLICY CHECKER EGFR Routine 02/23/2024 9:08 PM POLICY CHECKER VANCOMYCIN LEVEL RANDOM Routine 02/23/2024 9:08 PM POLICY CHECKER BASIC METABOLIC PANEL Routine 02/23/2024 9:08 PM POLICY CHECKER CBC WITHOUT DIFFERENTIAL Routine 02/23/2024 9:08 PM POLICY CHECKER URINALYSIS, MICROSCOPIC ONLY STAT 02/23/2024 11:11 AM POLICY CHECKER URINALYSIS AND REFLEX TO MICROSCOPIC STAT 02/23/2024 11:11 AM POLICY CHECKER BLOOD CULTURE STAT 02/23/2024 9:58 AM POLICY CHECKER BLOOD CULTURE STAT 02/23/2024 9:58 AM POLICY CHECKER POCT LACTATE - DEVICE Routine 02/23/2024 12:01 AM POLICY CHECKER POCT GLUCOSE DEVICE Routine 02/22/2024 1 1:[address] ABDOMEN PELVIS W CONTRAST ED 02/22/2024 10:57 PM POLICY CHECKER EGFR STAT 02/22/2024 8:41 PM POLICY CHECKER DIFFERENTIAL AUTO STAT 02/22/2024 8:4 1 PM POLICY CHECKER COMPREHENSIVE METABOLIC PANEL STAT 02/22/2024 8:41 PM POLICY CHECKER CBC WITH AUTO DIFFERENTIAL STAT 02/22/2024 8:41 PM POLICY CHECKER XR CHEST PA LATERAL 2 VIEWS ED 02/22/2024 6:18 PM POLICY CHECKER ECG 12-LEAD STAT 02/22/2024 5:23 PM POLICY CHECKER CS GLUCOSE Routine Gen Lab 02/14/2024 4:45 AM POLICY CHECKER EGFR Routine Gen Lab 02/14/2024 4:45 AM POLICY CHECKER COMPREHENSIVE METABOLIC PANEL WITHOUT GLUCOSE (OUTREACH) Routine Gen Lab 02/14/2024 4:45 AM POLICY CHECKER DIFFERENTIAL AUTO Routine Gen Lab 02/14/2024 4:4 5 AM POLICY CHECKER CBC WITH AUTO DIFFERENTIAL Routine Gen Lab 02/14/2024 4:45 AM POLICY CHECKER CBC WITHOUT DIFFERENTIAL Routine Gen Lab 02/14/2024 4:45 AM POLICY CHECKER ABSCESS CATHETER INJECTION Schedule Routine, Read Routine (OP Routine) 02/11/2024 11:15 AM POLICY CHECKER Abscess EGFR Routine Gen Lab 02/10/2024 6:41 AM POLICY CHECKER COMPREHENSIVE METABOLIC PANEL WITHOUT GLUCOSE (OUTREACH) Routine Gen Lab 02/10/2024 6:41 AM POLICY CHECKER CS GLUCOSE Routine Gen Lab 02/10/2024 6:41 AM POLICY CHECKER DIFFERENTIAL AUTO Routine Gen Lab 02/10/2024 6:4 1 AM POLICY CHECKER CBC WITH AUTO DIFFERENTIAL Routine Gen Lab 02/10/2024 6:41 AM POLICY CHECKER CS GLUCOSE Routine Gen Lab 02/07/2024 5:00 AM POLICY CHECKER EGFR Routine Gen Lab 02/07/2024 5:00 AM POLICY CHECKER COMPREHENSIVE METABOLIC PANEL WITHOUT GLUCOSE (OUTREACH) Routine Gen Lab 02/07/2024 5:00 AM POLICY CHECKER DIFFERENTIAL AUTO Routine Gen Lab 02/07/2024 5:0 0 AM POLICY CHECKER CBC WITH AUTO DIFFERENTIAL Routine Gen Lab 02/07/2024 5:00 AM POLICY CHECKER CBC WITHOUT DIFFERENTIAL Routine Gen Lab 02/07/2024 5:00 AM POLICY CHECKER TRANSFUSE RED BLOOD CELLS Timed from Last 3 Months Results * Differential, auto (04/18/2024 8:00 AM POLICY CHECKER) Pathologist [facility] Neutrophil abs 3.6 1.5 - 6.5 K/cumm Imm gran abs 0.0 0.0 - 0.1 K/cumm [facility] Lymphocyte abs 1.5 0.8 - 3.3 K/cumm [facility] Monocyte abs 0.6 0.2 - 0.8 K/cumm [facility] Eosinophil abs 0.2 0.0 - 0.5 K/cumm [facility] Basophil abs 0.0 0.0 - 0.1 K/cumm [facility] Neutrophil pct 61.3 % [facility] Comment: Interpretive Data Percent cell count reference ranges are not reported, since discordance with absolute values may lead to misinterpretation of CBC data. Current Interpretive Data was last revised on 2017. Imm gran pct 0.7 % [facility] Comment: Interpretive Data Percent cell count reference ranges are not reported, since discordance with absolute values may lead to misinterpretation of CBC data. Current Interpretive Data was last revised on 2017. Lymphocyte pct 24.7 % [facility] Comment: Interpretive Data Percent cell count reference ranges are not reported, since discordance with absolute values may lead to misinterpretation of CBC data. Current Interpretive Data was last revised on 2017. Monocyte pct 9.6 % [facility] Comment: Interpretive Data Percent cell count reference ranges are not reported, since discordance with absolute values may lead to misinterpretation of CBC data. Current Interpretive Data was last revised on 2017. Eosinophil pct 3.2 % [facility] Comment: Interpretive Data Percent cell count reference ranges are not reported, since discordance with absolute values may lead to misinterpretation of CBC data. Current Interpretive Data was last revised on 2017. Basophil pct 0.5 % [facility] Comment: Interpretive Data Percent cell count reference ranges are not reported, since discordance with absolute values may lead to misinterpretation of CBC data. Current Interpretive Data was last revised on 2017. Blood 04/18/2024 8:00 AM POLICY CHECKER 04/18/2024 10:41 AM POLICY CHECKER us Donnie Erazo MD LAB BLOOD ORDERABLES Final Resul t [facility] One [facility] [place] [address] * (ABNORMAL) CBC with auto differential (04/18/2024 8:00 AM POLICY CHECKER) WBC 5.9 3.8 - 9.9 K/cumm Hgb 7.8(L) 11.9 - 15.5 g/dL [facility] Hct 24.7(L) 35.6 - 45.5 % [facility] Plt 135(L) 150 - 400 K/cumm [facility] MPV 11.0 9.1 - 12.3 fL [facility] RBC 2.68(L) 3.90 - 5.20 M/cumm [facility] MCV 92.2 81.3 - 96.4 fL [facility] MCH 29.1 27.1 - 33.3 pg [facility] MCHC 31.6(L) 32.3 - 35.7 g/dL [facility] RDW CV 19.3(H) 11.1 - 14.9 % [facility] RDW SD 63.2(H) 35.7 - 48.1 fL [facility] NRBC abs 0.02(H) 0.00 - 0.01 K/cumm [facility] Blood 04/18/2024 8:00 AM POLICY CHECKER 04/18/2024 10:41 AM POLICY CHECKER us Donnie Erazo MD LAB BLOOD ORDERABLES Final Resul t Performing Organization Address [facility] de Phone Number [facility] [place] [address] * eGFR (04/17/2024 4:58 AM POLICY CHECKER) eGFR 76 >=60 mL/min/1. 73 m2 Comment: Interpretive Data Reference Interval Normal >/= 90 mL/min/1.73m2 Mildly decreased* 60 - 89 mL/min/1.73m2 Mildly to moderately decreased 45 - 59 mL/min/1.73m2 Moderately to severely decreased 30 - 44 mL/min/1.73m2 Severely decreased 15 - 29 mL/min/1.73m2 Kidney Failure < 15 mL/min/1.73m2 *Relative to young adult level Estimated glomerular filtration rate is determined by the 2020 CKD-EPI equation recommended by the National Kidney Foundation (A Unifying Approach to GFR Estimation: Recommendations of the NKF-ASK Task Force on Reassessing the Inclusion of Race in Diagnosing Kidney Disease, JASN 2020). The CKD-EPI equation should not be used for patients with unstable renal function and has not been validated in children and those over 70. Current interpretive data was last reviewed 2020. Blood 04/17/2024 4:58 AM POLICY CHECKER 04/17/2024 5:31 AM POLICY CHECKER us Donnie Erazo MD LAB BLOOD ORDERABLES Final Resul t Performing Organization Address [facility]/ZIP Co de Phone Number [facility] Department [place] [address] * Differential, auto (04/17/2024 4:58 AM POLICY CHECKER) Neutrophil abs 2.7 1.5 - 6.5 K/cumm Imm gran abs 0.0 0.0 - 0.1 K/cumm [facility] Lymphocyte abs 1.3 0.8 - 3.3 K/cumm [facility] Monocyte abs 0.6 0.2 - 0.8 K/cumm [facility] Eosinophil abs 0.2 0.0 - 0.5 K/cumm [facility] Basophil abs 0.0 0.0 - 0.1 K/cumm [facility] Neutrophil pct 56.1 % [facility] Comment: Interpretive Data Percent cell count reference ranges are not reported, since discordance with absolute values may lead to misinterpretation of CBC data. Current Interpretive Data was last revised on 2017. Imm gran pct 0.8 % [facility] Comment: Interpretive Data Percent cell count reference ranges are not reported, since discordance with absolute values may lead to misinterpretation of CBC data. Current Interpretive Data was last revised on 2017. Lymphocyte pct 27.4 % [facility] Comment: Interpretive Data Percent cell count reference ranges are not reported, since discordance with absolute values may lead to misinterpretation of CBC data. Current Interpretive Data was last revised on 2017. Monocyte pct 11.7 % [facility] Comment: Interpretive Data Percent cell count reference ranges are not reported, since discordance with absolute values may lead to misinterpretation of CBC data. Current Interpretive Data was last revised on 2017. Eosinophil pct 3.6 % [facility] Comment: Interpretive Data Percent cell count reference ranges are not reported, since discordance with absolute values may lead to misinterpretation of CBC data. Current Interpretive Data was last revised on 2017. Basophil pct 0.4 % [facility] Comment: Interpretive Data Percent cell count reference ranges are not reported, since discordance with absolute values may lead to misinterpretation of CBC data. Current Interpretive Data was last revised on 2017. Blood 04/17/2024 4:58 AM POLICY CHECKER 04/17/2024 5:25 AM POLICY CHECKER us Donnie Erazo MD LAB BLOOD ORDERABLES Final Resul t [facility] Department [place] [address] * (ABNORMAL) CBC with auto differential (04/17/2024 4:58 AM POLICY CHECKER) [facility] WBC 4.8 3.8 - 9.9 K/cumm Hgb 6.9(L) 11.9 - 15.5 g/dL [facility] Hct 21.7(L) 35.6 - 45.5 % [facility] Plt 119(L) 150 - 400 K/cumm [facility] MPV 11.1 9.1 - 12.3 fL [facility] RBC 2.33(L) 3.90 - 5.20 M/cumm [facility] MCV 93.1 81.3 - 96.4 fL [facility] MCH 29.6 27.1 - 33.3 pg [facility] MCHC 31.8(L) 32.3 - 35.7 g/dL [facility] RDW CV 20.1(H) 11.1 - 14.9 % [facility] RDW SD 67.1(H) 35.7 - 48.1 fL [facility] NRBC abs 0.00 0.00 - 0.01 K/cumm [facility] Blood 04/17/2024 4:58 AM POLICY CHECKER 04/17/2024 5:25 AM POLICY CHECKER us Donnie Erazo MD LAB BLOOD ORDERABLES Final Resul t [facility] One [facility] [place] [address] * (ABNORMAL) Comprehensive metabolic panel (04/17/2024 4:58 AM POLICY CHECKER) Pathologist [facility] Sodium 141 135 - 145 mmol/L Potassium, pl 3.9 3.3 - 4.9 mmol/L [facility] Chloride 116(H) 97 - 110 mmol/L [facility] CO2 21(L) 22 - 32 mmol/L [facility] Anion gap 4 2 - 15 mmol/L [facility] BUN 16 6 - 25 mg/dL [facility] Creatinine 0.78 0.60 - 1.10 mg/dL [facility] Glucose 115 70 - 199 mg/dL [facility] Comment: Interpretive Data Fasting glucose >/= 126 mg/dl is diagnostic for diabetes. Fasting is defined as no caloric intake for at least 8 hours. Fasting glucose between 100 mg/dl to 125 mg/dl is diagnostic of prediabetes. In a patient with classic symptoms of hyperglycemia or hyperglycemic crisis, a random glucose >/= 200 mg/dl is diagnostic for diabetes. In the absence of unequivocal hyperglycemia, results should be confirmed by repeat testing. The classification and Diagnosis of Diabetes Diabetes Care 2021; 46: S19-S40. Current interpretive data was last revised 2022. Calcium 9.9 8.5 - 10.3 mg/dL [facility] Bilirubin, total 0.2 0.1 - 1.2 mg/dL [facility] Protein, pl 7.1 6.5 - 8.5 g/dL [facility] Albumin 2.0(L) 3.5 - 5.0 g/dL [facility] Alk phos 286(H) 40 - 130 Units/L [facility] ALT 157(H) 7 - 45 Units/L [facility] AST 173(H) 10 - 45 Units/L [facility] Blood 04/17/2024 4:58 AM POLICY CHECKER 04/17/2024 5:25 AM POLICY CHECKER us Donnie Erazo MD LAB BLOOD ORDERABLES Final Resul t [facility] Department [place] [address] * eGFR (04/13/2024 4:00 AM POLICY CHECKER) eGFR 62 >=60 mL/min/1. 73 m2 Comment: Interpretive Data Reference Interval Normal >/= 90 mL/min/1.73m2 Mildly decreased* 60 - 89 mL/min/1.73m2 Mildly to moderately decreased 45 - 59 mL/min/1.73m2 Moderately to severely decreased 30 - 44 mL/min/1.73m2 Severely decreased 15 - 29 mL/min/1.73m2 Kidney Failure < 15 mL/min/1.73m2 *Relative to young adult level Estimated glomerular filtration rate is determined by the 2020 CKD-EPI equation recommended by the National Kidney Foundation (A Unifying Approach to GFR Estimation: Recommendations of the NKF-ASK Task Force on Reassessing the Inclusion of Race in Diagnosing Kidney Disease, JASN 2020). The CKD-EPI equation should not be used for patients with unstable renal function and has not been validated in children and those over 70. Current interpretive data was last reviewed 2020. Blood 04/13/2024 4:00 AM POLICY CHECKER 04/13/2024 5:48 AM POLICY CHECKER us Donnie Erazo MD LAB BLOOD ORDERABLES Final Resul t [facility] One [facility] Department [place] [address] * Differential, auto (04/13/2024 4:00 AM POLICY CHECKER) Neutrophil abs 4.2 1.5 - 6.5 K/cumm Imm gran abs 0.0 0.0 - 0.1 K/cumm [facility] Lymphocyte abs 1.2 0.8 - 3.3 K/cumm [facility] Monocyte abs 0.6 0.2 - 0.8 K/cumm [facility] Eosinophil abs 0.2 0.0 - 0.5 K/cumm [facility] Basophil abs 0.0 0.0 - 0.1 K/cumm [facility] Neutrophil pct 67.9 % [facility] Comment: Interpretive Data Percent cell count reference ranges are not reported, since discordance with absolute values may lead to misinterpretation of CBC data. Current Interpretive Data was last revised on 2017. Imm gran pct 0.7 % [facility] Comment: Interpretive Data Percent cell count reference ranges are not reported, since discordance with absolute values may lead to misinterpretation of CBC data. Current Interpretive Data was last revised on 2017. Lymphocyte pct 19.1 % [facility] Comment: Interpretive Data Percent cell count reference ranges are not reported, since discordance with absolute values may lead to misinterpretation of CBC data. Current Interpretive Data was last revised on 2017. Monocyte pct 9.5 % [facility] Comment: Interpretive Data Percent cell count reference ranges are not reported, since discordance with absolute values may lead to misinterpretation of CBC data. Current Interpretive Data was last revised on 2017. Eosinophil pct 2.6 % [facility] Comment: Interpretive Data Percent cell count reference ranges are not reported, since discordance with absolute values may lead to misinterpretation of CBC data. Current Interpretive Data was last revised on 2017. Basophil pct 0.2 % [facility] Comment: Interpretive Data Percent cell count reference ranges are not reported, since discordance with absolute values may lead to misinterpretation of CBC data. Current Interpretive Data was last revised on 2017. Blood 04/13/2024 4:00 AM POLICY CHECKER 04/13/2024 5:38 AM POLICY CHECKER us Donnie Erazo MD LAB BLOOD ORDERABLES Final Resul t [facility] Department [place] [address] * (ABNORMAL) CBC with auto differential (04/13/2024 4:00 AM POLICY CHECKER) WBC 6.1 3.8 - 9.9 K/cumm Hgb 7.1(L) 11.9 - 15.5 g/dL [facility] Hct 22.8(L) 35.6 - 45.5 % [facility] Plt 111(L) 150 - 400 K/cumm [facility] MPV 10.8 9.1 - 12.3 fL [facility] RBC 2.47(L) 3.90 - 5.20 M/cumm [facility] MCV 92.3 81.3 - 96.4 fL [facility] MCH 28.7 27.1 - 33.3 pg [facility] MCHC 31.1(L) 32.3 - 35.7 g/dL [facility] RDW CV 19.9(H) 11.1 - 14.9 % [facility] RDW SD 67.1(H) 35.7 - 48.1 fL [facility] NRBC abs 0.00 0.00 - 0.01 K/cumm [facility] Blood 04/13/2024 4:00 AM POLICY CHECKER 04/13/2024 5:38 AM POLICY CHECKER us Donnie Erazo MD LAB BLOOD ORDERABLES Final Resul t Performing Organization Address [facility] de Phone Number [facility] [place] [employer] [place] [address] * Phosphorus (04/13/2024 4:00 AM POLICY CHECKER) [facility] Phosphorus, pl 2.3 2.3 - 4.5 mg/dL Blood 04/13/2024 4:00 AM POLICY CHECKER 04/13/2024 5:38 AM POLICY CHECKER us Donnie Erazo MD LAB BLOOD ORDERABLES Final Resul t Performing Organization Address [facility] de Phone Number [facility] [place] [employer] [place] [address] * Magnesium (04/13/2024 4:00 AM POLICY CHECKER) [facility] Magnesium 1.4 1.4 - 2.5 mg/dL Blood 04/13/2024 4:00 AM POLICY CHECKER 04/13/2024 5:38 AM POLICY CHECKER us Donnie Erazo MD LAB BLOOD ORDERABLES Final Resul t Performing Organization Address [facility] [place] [address] * (ABNORMAL) Comprehensive metabolic panel (04/13/2024 4:00 AM POLICY CHECKER) [facility] Sodium 142 135 - 145 mmol/L Potassium, pl 3.8 3.3 - 4.9 mmol/L [facility] Chloride 118(H) 97 - 110 mmol/L [facility] CO2 20(L) 22 - 32 mmol/L [facility] Anion gap 4 2 - 15 mmol/L [facility] BUN 9 6 - 25 mg/dL [facility] Creatinine 0.93 0.60 - 1.10 mg/dL [facility] Glucose 112 70 - 199 mg/dL [facility] Comment: Interpretive Data Fasting glucose >/= 126 mg/dl is diagnostic for diabetes. Fasting is defined as no caloric intake for at least 8 hours. Fasting glucose between 100 mg/dl to 125 mg/dl is diagnostic of prediabetes. In a patient with classic symptoms of hyperglycemia or hyperglycemic crisis, a random glucose >/= 200 mg/dl is diagnostic for diabetes. In the absence of unequivocal hyperglycemia, results should be confirmed by repeat testing. The classification and Diagnosis of Diabetes Diabetes Care 2021; 46: S19-S40. Current interpretive data was last revised 2022. Calcium 9.4 8.5 - 10.3 mg/dL [facility] Bilirubin, total 0.2 0.1 - 1.2 mg/dL [facility] Protein, pl 6.6 6.5 - 8.5 g/dL [facility] Albumin 2.3(L) 3.5 - 5.0 g/dL [facility] Alk phos 222(H) 40 - 130 Units/L [facility] ALT 38 7 - 45 Units/L [facility] AST 47(H) 10 - 45 Units/L [facility] Blood 04/13/2024 4:00 AM POLICY CHECKER 04/13/2024 5:38 AM POLICY CHECKER Donnie Erazo MD LAB BLOOD ORDERABLES Final Resul t [facility] One [facility] [place] [address] * (ABNORMAL) eGFR (04/12/2024 4:00 AM POLICY CHECKER) eGFR 53(L) >=60 mL/min/1. 73 m2 Comment: Interpretive Data Reference Interval Normal >/= 90 mL/min/1.73m2 Mildly decreased* 60 - 89 mL/min/1.73m2 Mildly to moderately decreased 45 - 59 mL/min/1.73m2 Moderately to severely decreased 30 - 44 mL/min/1.73m2 Severely decreased 15 - 29 mL/min/1.73m2 Kidney Failure < 15 mL/min/1.73m2 *Relative to young adult level Estimated glomerular filtration rate is determined by the 2020 CKD-EPI equation recommended by the National Kidney Foundation (A Unifying Approach to GFR Estimation: Recommendations of the NKF-ASK Task Force on Reassessing the Inclusion of Race in Diagnosing Kidney Disease, JASN 2020). The CKD-EPI equation should not be used for patients with unstable renal function and has not been validated in children and those over 70. Current interpretive data was last reviewed 2020. Blood 04/12/2024 4:00 AM POLICY CHECKER 04/12/2024 4:41 AM POLICY CHECKER us Donnie Erazo MD LAB BLOOD ORDERABLES Final Resul t Performing Organization Address City/[facility]/ZIP Co de Phone Number [facility] Department [place] [address] * Phosphorus (04/12/2024 4:00 AM POLICY CHECKER) Phosphorus, pl 2.4 2.3 - 4.5 mg/dL Blood 04/12/2024 4:00 AM POLICY CHECKER 04/12/2024 4:41 AM POLICY CHECKER us Donnie Erazo MD LAB BLOOD ORDERABLES Final Resul t [facility] Department [place] [address] * Magnesium (04/12/2024 4:00 AM POLICY CHECKER) Magnesium 1.7 1.4 - 2.5 mg/dL Blood 04/12/2024 4:00 AM POLICY CHECKER 04/12/2024 4:41 AM POLICY CHECKER us Donnie Erazo MD LAB BLOOD ORDERABLES Final Resul t Performing Organization Address [facility]/ZIP Co de Phone Number [facility] Department [place] [address] * (ABNORMAL) Basic metabolic panel (04/12/2024 4:00 AM POLICY CHECKER) Sodium 137 135 - 145 mmol/L Potassium, pl 3.7 3.3 - 4.9 mmol/L [facility] Chloride 114(H) 97 - 110 mmol/L [facility] CO2 20(L) 22 - 32 mmol/L [facility] Anion gap 3 2 - 15 mmol/L [facility] BUN 9 6 - 25 mg/dL [facility] Creatinine 1.06 0.60 - 1.10 mg/dL [facility] Glucose 130 70 - 199 mg/dL [facility] Comment: Interpretive Data Fasting glucose >/= 126 mg/dl is diagnostic for diabetes. Fasting is defined as no caloric intake for at least 8 hours. Fasting glucose between 100 mg/dl to 125 mg/dl is diagnostic of prediabetes. In a patient with classic symptoms of hyperglycemia or hyperglycemic crisis, a random glucose >/= 200 mg/dl is diagnostic for diabetes. In the absence of unequivocal hyperglycemia, results should be confirmed by repeat testing. The classification and Diagnosis of Diabetes Diabetes Care 202; 46: S19-S40. Current interpretive data was last revised 2022. Calcium 9.8 8.5 - 10.3 mg/dL [facility] Blood 04/12/2024 4:00 AM POLICY CHECKER 04/12/2024 4:41 AM POLICY CHECKER Donnie Erazo MD LAB BLOOD ORDERABLES Final Resul t Performing Organization Address [facility]/ZIP Co de Phone Number [facility] Department [place] [address] * (ABNORMAL) eGFR (04/11/2024 4:00 AM POLICY CHECKER) eGFR 51(L) >=60 mL/min/1. 73 m2 Comment: Interpretive Data Reference Interval Normal >/= 90 mL/min/1.73m2 Mildly decreased* 60 - 89 mL/min/1.73m2 Mildly to moderately decreased 45 - 59 mL/min/1.73m2 Moderately to severely decreased 30 - 44 mL/min/1.73m2 Severely decreased 15 - 29 mL/min/1.73m2 Kidney Failure < 15 mL/min/1.73m2 *Relative to young adult level Estimated glomerular filtration rate is determined by the 2020 CKD-EPI equation recommended by the National Kidney Foundation (A Unifying Approach to GFR Estimation: Recommendations of the NKF-ASK Task Force on Reassessing the Inclusion of Race in Diagnosing Kidney Disease, JASN 2020). The CKD-EPI equation should not be used for patients with unstable renal function and has not been validated in children and those over 70. Current interpretive data was last reviewed 2020. Blood 04/11/2024 4:00 AM POLICY CHECKER 04/11/2024 5:23 AM POLICY CHECKER Donnie Erazo MD LAB BLOOD ORDERABLES Final Resul t Performing Organization Address City/State/[facility] Co de Phone Number [facility] [place] [employer] [place] [address] * Phosphorus (04/11/2024 4:00 AM POLICY CHECKER) Phosphorus, pl 2.5 2.3 - 4.5 mg/dL Blood 04/11/2024 4:00 AM POLICY CHECKER 04/11/2024 5:03 AM POLICY CHECKER Donnie Erazo MD LAB BLOOD ORDERABLES Final Resul t Performing Organization Address City/State/[facility] Co de Phone Number [facility] [place] [employer] [place] [address] * Magnesium (04/11/2024 4:00 AM POLICY CHECKER) Magnesium 1.6 1.4 - 2.5 mg/dL Blood 04/11/2024 4:00 AM POLICY CHECKER 04/11/2024 5:03 AM POLICY CHECKER Donnie Erazo MD LAB BLOOD ORDERABLES Final Resul t [facility] [place] [address] * (ABNORMAL) Basic metabolic panel (04/11/2024 4:00 AM POLICY CHECKER) Sodium 140 135 - 145 mmol/L Potassium, pl 4.3 3.3 - 4.9 mmol/L [facility] Chloride 113(H) 97 - 110 mmol/L [facility] CO2 21(L) 22 - 32 mmol/L [facility] Anion gap 6 2 - 15 mmol/L [facility] BUN 9 6 - 25 mg/dL [facility] Creatinine 1.09 0.60 - 1.10 mg/dL [facility] Glucose 127 70 - 199 mg/dL [facility] Comment: Interpretive Data Fasting glucose >/= 126 mg/dl is diagnostic for diabetes. Fasting is defined as no caloric intake for at least 8 hours. Fasting glucose between 100 mg/dl to 125 mg/dl is diagnostic of prediabetes. In a patient with classic symptoms of hyperglycemia or hyperglycemic crisis, a random glucose >/= 200 mg/dl is diagnostic for diabetes. In the absence of unequivocal hyperglycemia, results should be confirmed by repeat testing. The classification and Diagnosis of Diabetes Diabetes Care 2021; 46: S19-S40. Current interpretive data was last revised 2022. Calcium 10.0 8.5 - 10.3 mg/dL [facility] Blood 04/11/2024 4:00 AM POLICY CHECKER 04/11/2024 5:03 AM POLICY CHECKER Donnie Erazo MD LAB BLOOD ORDERABLES Final Resul t Performing Organization Address City/[facility]/ZIP Co de Phone Number [facility] Department [place] [address] * (ABNORMAL) eGFR (04/10/2024 4:15 AM POLICY CHECKER) eGFR 49(L) >=60 mL/min/1. 73 m2 Comment: Interpretive Data Reference Interval Normal >/= 90 mL/min/1.73m2 Mildly decreased* 60 - 89 mL/min/1.73m2 Mildly to moderately decreased 45 - 59 mL/min/1.73m2 Moderately to severely decreased 30 - 44 mL/min/1.73m2 Severely decreased 15 - 29 mL/min/1.73m2 Kidney Failure < 15 mL/min/1.73m2 *Relative to young adult level Estimated glomerular filtration rate is determined by the 2020 CKD-EPI equation recommended by the National Kidney Foundation (A Unifying Approach to GFR Estimation: Recommendations of the NKF-ASK Task Force on Reassessing the Inclusion of Race in Diagnosing Kidney Disease, JASN 202). The CKD-EPI equation should not be used for patients with unstable renal function and has not been validated in children and those over 70. Current interpretive data was last reviewed 2020. Blood 04/10/2024 4:15 AM POLICY CHECKER 04/10/2024 5:57 AM POLICY CHECKER us Notinfile Unknown LAB BLOOD ORDERABLES Final Res ult [facility] [place] [address] * Differential, auto (04/10/2024 4:15 AM POLICY CHECKER) Pathologist [facility] Neutrophil abs 2.7 1.5 - 6.5 K/cumm Imm gran abs 0.0 0.0 - 0.1 K/cumm [facility] Lymphocyte abs 1.2 0.8 - 3.3 K/cumm [facility] Monocyte abs 0.6 0.2 - 0.8 K/cumm [facility] Eosinophil abs 0.2 0.0 - 0.5 K/cumm [facility] Basophil abs 0.0 0.0 - 0.1 K/cumm [facility] Neutrophil pct 58.0 % [facility] Comment: Interpretive Data Percent cell count reference ranges are not reported, since discordance with absolute values may lead to misinterpretation of CBC data. Current Interpretive Data was last revised on 2017. Imm gran pct 0.4 % [facility] Comment: Interpretive Data Percent cell count reference ranges are not reported, since discordance with absolute values may lead to misinterpretation of CBC data. Current Interpretive Data was last revised on 2017. Lymphocyte pct 24.6 % [facility] Comment: Interpretive Data Percent cell count reference ranges are not reported, since discordance with absolute values may lead to misinterpretation of CBC data. Current Interpretive Data was last revised on 2017. Monocyte pct 12.8 % [facility] Comment: Interpretive Data Percent cell count reference ranges are not reported, since discordance with absolute values may lead to misinterpretation of CBC data. Current Interpretive Data was last revised on 2017. Eosinophil pct 3.8 % [facility] Comment: Interpretive Data Percent cell count reference ranges are not reported, since discordance with absolute values may lead to misinterpretation of CBC data. Current Interpretive Data was last revised on 2017. Basophil pct 0.4 % [facility] Comment: Interpretive Data Percent cell count reference ranges are not reported, since discordance with absolute values may lead to misinterpretation of CBC data. Current Interpretive Data was last revised on 2017. Blood 04/10/2024 4:15 AM POLICY CHECKER 04/10/2024 5:48 AM POLICY CHECKER us Notinfile Unknown LAB BLOOD ORDERABLES Final Res ult [facility] [place] [address] * (ABNORMAL) CBC with auto differential (04/10/2024 4:15 AM POLICY CHECKER) WBC 4.7 3.8 - 9.9 K/cumm Hgb 7.1(L) 11.9 - 15.5 g/dL [facility] Hct 22.8(L) 35.6 - 45.5 % [facility] Plt 101(L) 150 - 400 K/cumm [facility] MPV 11.0 9.1 - 12.3 fL [facility] RBC 2.44(L) 3.90 - 5.20 M/cumm [facility] MCV 93.4 81.3 - 96.4 fL [facility] MCH 29.1 27.1 - 33.3 pg [facility] MCHC 31.1(L) 32.3 - 35.7 g/dL [facility] RDW CV 21.2(H) 11.1 - 14.9 % [facility] RDW SD 72.3(H) 35.7 - 48.1 fL [facility] NRBC abs 0.00 0.00 - 0.01 K/cumm [facility] Blood 04/10/2024 4:15 AM POLICY CHECKER 04/10/2024 5:48 AM POLICY CHECKER us Notinfile Unknown LAB BLOOD ORDERABLES Final Res ult Performing Organization Address [facility] de Phone Number [facility] Department [place] [address] * (ABNORMAL) Phosphorus (04/10/2024 4:15 AM POLICY CHECKER) Phosphorus, pl 2.0(L) 2.3 - 4.5 mg/dL Blood 04/10/2024 4:15 AM POLICY CHECKER 04/10/2024 5:48 AM POLICY CHECKER us Notinfile Unknown LAB BLOOD ORDERABLES Final Res ult Performing Organization Address [facility] de Phone Number [facility] Department [place] [address] * Magnesium (04/10/2024 4:15 AM POLICY CHECKER) Magnesium 1.6 1.4 - 2.5 mg/dL Blood 04/10/2024 4:15 AM POLICY CHECKER 04/10/2024 5:48 AM POLICY CHECKER us Notinfile Unknown LAB BLOOD ORDERABLES Final Res ult Performing Organization Address [facility] de Phone Number [facility] Department [place] [address] * (ABNORMAL) Comprehensive metabolic panel (04/10/2024 4:15 AM POLICY CHECKER) Sodium 141 135 - 145 mmol/L Potassium, pl 5.2(H) 3.3 - 4.9 mmol/L [facility] Chloride 114(H) 97 - 110 mmol/L [facility] CO2 22 22 - 32 mmol/L [facility] Anion gap 5 2 - 15 mmol/L [facility] BUN 8 6 - 25 mg/dL [facility] Creatinine 1.12(H) 0.60 - 1.10 mg/dL [facility] Glucose 89 70 - 199 mg/dL [facility] Comment: Interpretive Data Fasting glucose >/= 126 mg/dl is diagnostic for diabetes. Fasting is defined as no caloric intake for at least 8 hours. Fasting glucose between 100 mg/dl to 125 mg/dl is diagnostic of prediabetes. In a patient with classic symptoms of hyperglycemia or hyperglycemic crisis, a random glucose >/= 200 mg/dl is diagnostic for diabetes. In the absence of unequivocal hyperglycemia, results should be confirmed by repeat testing. The classification and Diagnosis of Diabetes Diabetes Care 2021; 46: S19-S40. Current interpretive data was last revised 2022. Calcium 10.1 8.5 - 10.3 mg/dL [facility] Bilirubin, total 0.2 0.1 - 1.2 mg/dL [facility] Protein, pl 6.4(L) 6.5 - 8.5 g/dL [facility] Albumin 2.1(L) 3.5 - 5.0 g/dL [facility] Alk phos 239(H) 40 - 130 Units/L [facility] ALT 27 7 - 45 Units/L [facility] AST 18 10 - 45 Units/L [facility] Blood 04/10/2024 4:15 AM POLICY CHECKER 04/10/2024 5:48 AM POLICY CHECKER us Notinfile Unknown LAB BLOOD ORDERABLES Final Res ult [facility] Department [place] [address] * (ABNORMAL) eGFR (04/09/2024 4:30 AM POLICY CHECKER) eGFR 52(L) >=60 mL/min/1. 73 m2 Comment: Interpretive Data Reference Interval Normal >/= 90 mL/min/1.73m2 Mildly decreased* 60 - 89 mL/min/1.73m2 Mildly to moderately decreased 45 - 59 mL/min/1.73m2 Moderately to severely decreased 30 - 44 mL/min/1.73m2 Severely decreased 15 - 29 mL/min/1.73m2 Kidney Failure < 15 mL/min/1.73m2 *Relative to young adult level Estimated glomerular filtration rate is determined by the 2020 CKD-EPI equation recommended by the National Kidney Foundation (A Unifying Approach to GFR Estimation: Recommendations of the NKF-ASK Task Force on Reassessing the Inclusion of Race in Diagnosing Kidney Disease, JASN 2020). The CKD-EPI equation should not be used for patients with unstable renal function and has not been validated in children and those over 70. Current interpretive data was last reviewed 2020. Blood 04/09/2024 4:30 AM POLICY CHECKER 04/09/2024 7:40 AM POLICY CHECKER us Notinfile Unknown LAB BLOOD ORDERABLES Final Res ult Performing Organization Address City/[facility]/ZIP Co de Phone Number [facility] Department [place] [address] * (ABNORMAL) Phosphorus (04/09/2024 4:30 AM POLICY CHECKER) Phosphorus, pl 2.1(L) 2.3 - 4.5 mg/dL Blood 04/09/2024 4:30 AM POLICY CHECKER 04/09/2024 6:45 AM POLICY CHECKER us Notinfile Unknown LAB BLOOD ORDERABLES Final Res ult [facility] Department [place] [address] * Magnesium (04/09/2024 4:30 AM POLICY CHECKER) Magnesium 1.9 1.4 - 2.5 mg/dL Comment:Reviewed Blood 04/09/2024 4:30 AM POLICY CHECKER 04/09/2024 6:45 AM POLICY CHECKER us Notinfile Unknown LAB BLOOD ORDERABLES Final Res ult [facility] Department [place] [address] * (ABNORMAL) Comprehensive metabolic panel (04/09/2024 4:30 AM POLICY CHECKER) Sodium 142 135 - 145 mmol/L Potassium, pl 4.4 3.3 - 4.9 mmol/L [facility] Chloride 116(H) 97 - 110 mmol/L [facility] CO2 22 22 - 32 mmol/L [facility] Anion gap 4 2 - 15 mmol/L [facility] BUN 8 6 - 25 mg/dL [facility] Creatinine 1.07 0.60 - 1.10 mg/dL [facility] Glucose 111 70 - 199 mg/dL [facility] Comment: Interpretive Data Fasting glucose >/= 126 mg/dl is diagnostic for diabetes. Fasting is defined as no caloric intake for at least 8 hours. Fasting glucose between 100 mg/dl to 125 mg/dl is diagnostic of prediabetes. In a patient with classic symptoms of hyperglycemia or hyperglycemic crisis, a random glucose >/= 200 mg/dl is diagnostic for diabetes. In the absence of unequivocal hyperglycemia, results should be confirmed by repeat testing. The classification and Diagnosis of Diabetes Diabetes Care 2021; 46: S19-S40. Current interpretive data was last revised 2022. Calcium 10.8(H) 8.5 - 10.3 mg/dL [facility] Bilirubin, total 0.3 0.1 - 1.2 mg/dL [facility] Protein, pl 6.8 6.5 - 8.5 g/dL [facility] Albumin 2.2(L) 3.5 - 5.0 g/dL [facility] Alk phos 274(H) 40 - 130 Units/L [facility] ALT 37 7 - 45 Units/L [facility] AST 20 10 - 45 Units/L [facility] Blood 04/09/2024 4:30 AM POLICY CHECKER 04/09/2024 6:45 AM POLICY CHECKER us Notinfile Unknown LAB BLOOD ORDERABLES Final Res ult Performing Organization Address City/[facility]/ZIP Co de Phone Number [facility] Department [place] [address] * eGFR (04/08/2024 4:30 AM POLICY CHECKER) eGFR 63 >=60 mL/min/1. 73 m2 Comment: Interpretive Data Reference Interval Normal >/= 90 mL/min/1.73m2 Mildly decreased* 60 - 89 mL/min/1.73m2 Mildly to moderately decreased 45 - 59 mL/min/1.73m2 Moderately to severely decreased 30 - 44 mL/min/1.73m2 Severely decreased 15 - 29 mL/min/1.73m2 Kidney Failure < 15 mL/min/1.73m2 *Relative to young adult level Estimated glomerular filtration rate is determined by the 2020 CKD-EPI equation recommended by the National Kidney Foundation (A Unifying Approach to GFR Estimation: Recommendations of the NKF-ASK Task Force on Reassessing the Inclusion of Race in Diagnosing Kidney Disease, JASN 202). The CKD-EPI equation should not be used for patients with unstable renal function and has not been validated in children and those over 70. Current interpretive data was last reviewed 2020. Blood 04/08/2024 4:30 AM POLICY CHECKER 04/08/2024 6:08 AM POLICY CHECKER us Mono Kirkpatrick MD LAB BLOOD ORDERABLES Final R esult Performing Organization Address City/[facility]/ZIP Co de Phone Number [facility] Department [place] [address] * Critical Result Callback Chemistry (04/08/2024 4:30 AM POLICY CHECKER) Date Notified [id number] Time Notified 634 [facility] TestName Magnesium [facility] NUGENT Called/Read Back Cora [facility] Credentials RN LAILA NUGENT Called By geneva NUGENT Blood 04/08/2024 4:30 AM POLICY CHECKER 04/08/2024 6:08 AM POLICY CHECKER Mono Kirkpatrick MD LAB BLOOD ORDERABLES [place] [address] * (ABNORMAL) Phosphorus (04/08/2024 4:30 AM POLICY CHECKER) Pathologist [facility] Phosphorus, pl 2.0(L) 2.3 - 4.5 mg/dL Blood 04/08/2024 4:30 AM POLICY CHECKER 04/08/2024 6:04 AM POLICY CHECKER Mono Kirkpatrick MD LAB BLOOD ORDERABLES Final R esult Performing Organization Address City/[facility]/ZIP Co de Phone Number [facility] [place] [address] * (ABNORMAL) Magnesium (04/08/2024 4:30 AM POLICY CHECKER) Pathologist [facility] Magnesium 0.9(C) 1.4 - 2.5 mg/dL Comment:Reviewed Blood 04/08/2024 4:30 AM POLICY CHECKER 04/08/2024 6:04 AM POLICY CHECKER Mono Kirkpatrick MD LAB BLOOD ORDERABLES Final R esult [facility] [place] [address] * (ABNORMAL) Comprehensive metabolic panel (04/08/2024 4:30 AM POLICY CHECKER) Sodium 143 135 - 145 mmol/L Potassium, pl 4.4 3.3 - 4.9 mmol/L [facility] Chloride 118(H) 97 - 110 mmol/L [facility] CO2 20(L) 22 - 32 mmol/L [facility] Anion gap 5 2 - 15 mmol/L [facility] BUN 8 6 - 25 mg/dL [facility] Creatinine 0.92 0.60 - 1.10 mg/dL [facility] Glucose 110 70 - 199 mg/dL [facility] Comment: Interpretive Data Fasting glucose >/= 126 mg/dl is diagnostic for diabetes. Fasting is defined as no caloric intake for at least 8 hours. Fasting glucose between 100 mg/dl to 125 mg/dl is diagnostic of prediabetes. In a patient with classic symptoms of hyperglycemia or hyperglycemic crisis, a random glucose >/= 200 mg/dl is diagnostic for diabetes. In the absence of unequivocal hyperglycemia, results should be confirmed by repeat testing. The classification and Diagnosis of Diabetes Diabetes Care 2021; 46: S19-S40. Current interpretive data was last revised 2022. Calcium 11.1(H) 8.5 - 10.3 mg/dL [facility] Bilirubin, total 0.4 0.1 - 1.2 mg/dL [facility] Protein, pl 7.1 6.5 - 8.5 g/dL [facility] Albumin 2.3(L) 3.5 - 5.0 g/dL [facility] Alk phos 322(H) 40 - 130 Units/L [facility] ALT 44 7 - 45 Units/L [facility] AST 29 10 - 45 Units/L [facility] Blood 04/08/2024 4:30 AM POLICY CHECKER 04/08/2024 6:04 AM POLICY CHECKER Mono Kirkpatrick MD LAB BLOOD ORDERABLES Final R esult [facility] Department [place] [address] * eGFR (04/06/2024 4:00 AM POLICY CHECKER) Pathologist [facility] eGFR 60 >=60 mL/min/1. 73 m2 Comment: Interpretive Data Reference Interval Normal >/= 90 mL/min/1.73m2 Mildly decreased* 60 - 89 mL/min/1.73m2 Mildly to moderately decreased 45 - 59 mL/min/1.73m2 Moderately to severely decreased 30 - 44 mL/min/1.73m2 Severely decreased 15 - 29 mL/min/1.73m2 Kidney Failure < 15 mL/min/1.73m2 *Relative to young adult level Estimated glomerular filtration rate is determined by the 2020 CKD-EPI equation recommended by the National Kidney Foundation (A Unifying Approach to GFR Estimation: Recommendations of the NKF-ASK Task Force on Reassessing the Inclusion of Race in Diagnosing Kidney Disease, JASN 2020). The CKD-EPI equation should not be used for patients with unstable renal function and has not been validated in children and those over 70. Current interpretive data was last reviewed 2020. Blood 04/06/2024 4:00 AM POLICY CHECKER 04/06/2024 6:04 AM POLICY CHECKER us Donnie Erazo MD LAB BLOOD ORDERABLES Final Resul t [facility] Department [place] [address] * Differential, auto (04/06/2024 4:00 AM POLICY CHECKER) [facility] Neutrophil abs 2.1 1.5 - 6.5 K/cumm Imm gran abs 0.0 0.0 - 0.1 K/cumm [facility] Lymphocyte abs 1.4 0.8 - 3.3 K/cumm [facility] Monocyte abs 0.5 0.2 - 0.8 K/cumm [facility] Eosinophil abs 0.2 0.0 - 0.5 K/cumm [facility] Basophil abs 0.0 0.0 - 0.1 K/cumm [facility] Neutrophil pct 48.8 % [facility] Comment: Interpretive Data Percent cell count reference ranges are not reported, since discordance with absolute values may lead to misinterpretation of CBC data. Current Interpretive Data was last revised on 2017. Imm gran pct 0.5 % [facility] Comment: Interpretive Data Percent cell count reference ranges are not reported, since discordance with absolute values may lead to misinterpretation of CBC data. Current Interpretive Data was last revised on 2017. Lymphocyte pct 33.3 % [facility] Comment: Interpretive Data Percent cell count reference ranges are not reported, since discordance with absolute values may lead to misinterpretation of CBC data. Current Interpretive Data was last revised on 2017. Monocyte pct 12.0 % [facility] Comment: Interpretive Data Percent cell count reference ranges are not reported, since discordance with absolute values may lead to misinterpretation of CBC data. Current Interpretive Data was last revised on 2017. Eosinophil pct 4.9 % [facility] Comment: Interpretive Data Percent cell count reference ranges are not reported, since discordance with absolute values may lead to misinterpretation of CBC data. Current Interpretive Data was last revised on 2017. Basophil pct 0.5 % [facility] Comment: Interpretive Data Percent cell count reference ranges are not reported, since discordance with absolute values may lead to misinterpretation of CBC data. Current Interpretive Data was last revised on 2017. Blood 04/06/2024 4:00 AM POLICY CHECKER 04/06/2024 5:46 AM POLICY CHECKER us Donnie Erazo MD LAB BLOOD ORDERABLES Final Resul t [facility] Department [place] [address] * (ABNORMAL) CBC with auto differential (04/06/2024 4:00 AM POLICY CHECKER) WBC 4.3 3.8 - 9.9 K/cumm Hgb 7.3(L) 11.9 - 15.5 g/dL [facility] Hct 23.8(L) 35.6 - 45.5 % [facility] Plt 101(L) 150 - 400 K/cumm [facility] MPV 10.7 9.1 - 12.3 fL [facility] RBC 2.55(L) 3.90 - 5.20 M/cumm [facility] MCV 93.3 81.3 - 96.4 fL [facility] MCH 28.6 27.1 - 33.3 pg [facility] MCHC 30.7(L) 32.3 - 35.7 g/dL [facility] RDW CV 21.9(H) 11.1 - 14.9 % [facility] RDW SD 73.9(H) 35.7 - 48.1 fL [facility] NRBC abs 0.02(H) 0.00 - 0.01 K/cumm [facility] Blood 04/06/2024 4:00 AM POLICY CHECKER 04/06/2024 5:46 AM POLICY CHECKER us Donnie Erazo MD LAB BLOOD ORDERABLES Final Resul t [facility] Department [place] [address] * (ABNORMAL) Comprehensive metabolic panel (04/06/2024 4:00 AM POLICY CHECKER) Sodium 144 135 - 145 mmol/L Potassium, pl 4.3 3.3 - 4.9 mmol/L [facility] Chloride 119(H) 97 - 110 mmol/L [facility] CO2 19(L) 22 - 32 mmol/L [facility] Anion gap 4 2 - 15 mmol/L [facility] BUN 7 6 - 25 mg/dL [facility] Creatinine 0.95 0.60 - 1.10 mg/dL [facility] Glucose 111 70 - 199 mg/dL [facility] Comment: Interpretive Data Fasting glucose >/= 126 mg/dl is diagnostic for diabetes. Fasting is defined as no caloric intake for at least 8 hours. Fasting glucose between 100 mg/dl to 125 mg/dl is diagnostic of prediabetes. In a patient with classic symptoms of hyperglycemia or hyperglycemic crisis, a random glucose >/= 200 mg/dl is diagnostic for diabetes. In the absence of unequivocal hyperglycemia, results should be confirmed by repeat testing. The classification and Diagnosis of Diabetes Diabetes Care 202; 46: S19-S40. Current interpretive data was last revised 2022. Calcium 10.4(H) 8.5 - 10.3 mg/dL [facility] Bilirubin, total 0.2 0.1 - 1.2 mg/dL [facility] Protein, pl 6.1(L) 6.5 - 8.5 g/dL [facility] Albumin 2.0(L) 3.5 - 5.0 g/dL [facility] Alk phos 304(H) 40 - 130 Units/L [facility] ALT 54(H) 7 - 45 Units/L [facility] AST 26 10 - 45 Units/L [facility] Blood 04/06/2024 4:00 AM POLICY CHECKER 04/06/2024 5:46 AM POLICY CHECKER us Donnie Erazo MD LAB BLOOD ORDERABLES Final Resul t [facility] Department [place] [address] * eGFR (04/05/2024 4:00 AM POLICY CHECKER) eGFR 63 >=60 mL/min/1. 73 m2 Comment: Interpretive Data Reference Interval Normal >/= 90 mL/min/1.73m2 Mildly decreased* 60 - 89 mL/min/1.73m2 Mildly to moderately decreased 45 - 59 mL/min/1.73m2 Moderately to severely decreased 30 - 44 mL/min/1.73m2 Severely decreased 15 - 29 mL/min/1.73m2 Kidney Failure < 15 mL/min/1.73m2 *Relative to young adult level Estimated glomerular filtration rate is determined by the 2020 CKD-EPI equation recommended by the National Kidney Foundation (A Unifying Approach to GFR Estimation: Recommendations of the NKF-ASK Task Force on Reassessing the Inclusion of Race in Diagnosing Kidney Disease, JASN 2020). The CKD-EPI equation should not be used for patients with unstable renal function and has not been validated in children and those over 70. Current interpretive data was last reviewed 2020. Blood 04/05/2024 4:00 AM POLICY CHECKER 04/05/2024 5:07 AM POLICY CHECKER Donnie Erazo MD LAB BLOOD ORDERABLES Final Resul t Performing Organization Address City/[facility] Co de Phone Number [facility] [place] [address] * (ABNORMAL) Basic metabolic panel (04/05/2024 4:00 AM POLICY CHECKER) [facility] Sodium 147(H) 135 - 145 mmol/L Potassium, pl 4.0 3.3 - 4.9 mmol/L [facility] Chloride 124(H) 97 - 110 mmol/L [facility] CO2 19(L) 22 - 32 mmol/L [facility] Anion gap 4 2 - 15 mmol/L [facility] BUN 7 6 - 25 mg/dL [facility] Creatinine 0.91 0.60 - 1.10 mg/dL [facility] Glucose 110 70 - 199 mg/dL [facility] Comment: Interpretive Data Fasting glucose >/= 126 mg/dl is diagnostic for diabetes. Fasting is defined as no caloric intake for at least 8 hours. Fasting glucose between 100 mg/dl to 125 mg/dl is diagnostic of prediabetes. In a patient with classic symptoms of hyperglycemia or hyperglycemic crisis, a random glucose >/= 200 mg/dl is diagnostic for diabetes. In the absence of unequivocal hyperglycemia, results should be confirmed by repeat testing. The classification and Diagnosis of Diabetes Diabetes Care 2021; 46: S19-S40. Current interpretive data was last revised 2022. Calcium 10.4(H) 8.5 - 10.3 mg/dL [facility] Blood 04/05/2024 4:00 AM POLICY CHECKER 04/05/2024 5:07 AM POLICY CHECKER Donnie Erazo MD LAB BLOOD ORDERABLES Final Resul t Performing Organization Address [facility] Co de Phone Number [facility] Department [place] [address] * eGFR (04/04/2024 3:45 AM POLICY CHECKER) Pathologist [facility] eGFR 63 >=60 mL/min/1. 73 m2 Comment: Interpretive Data Reference Interval Normal >/= 90 mL/min/1.73m2 Mildly decreased* 60 - 89 mL/min/1.73m2 Mildly to moderately decreased 45 - 59 mL/min/1.73m2 Moderately to severely decreased 30 - 44 mL/min/1.73m2 Severely decreased 15 - 29 mL/min/1.73m2 Kidney Failure < 15 mL/min/1.73m2 *Relative to young adult level Estimated glomerular filtration rate is determined by the 2020 CKD-EPI equation recommended by the National Kidney Foundation (A Unifying Approach to GFR Estimation: Recommendations of the NKF-ASK Task Force on Reassessing the Inclusion of Race in Diagnosing Kidney Disease, JASN 2020). The CKD-EPI equation should not be used for patients with unstable renal function and has not been validated in children and those over 70. Current interpretive data was last reviewed 2020. Blood 04/04/2024 3:45 AM POLICY CHECKER 04/04/2024 6:23 AM POLICY CHECKER us Donnie Erazo MD LAB BLOOD ORDERABLES Final Resul t [facility] [place] [address] * (ABNORMAL) Basic metabolic panel (04/04/2024 3:45 AM POLICY CHECKER) Pathologist [facility] Sodium 145 135 - 145 mmol/L Potassium, pl 4.1 3.3 - 4.9 mmol/L [facility] Chloride 123(H) 97 - 110 mmol/L [facility] CO2 19(L) 22 - 32 mmol/L [facility] Anion gap 3 2 - 15 mmol/L [facility] BUN 7 6 - 25 mg/dL [facility] Creatinine 0.91 0.60 - 1.10 mg/dL [facility] Glucose 115 70 - 199 mg/dL [facility] Comment: Interpretive Data Fasting glucose >/= 126 mg/dl is diagnostic for diabetes. Fasting is defined as no caloric intake for at least 8 hours. Fasting glucose between 100 mg/dl to 125 mg/dl is diagnostic of prediabetes. In a patient with classic symptoms of hyperglycemia or hyperglycemic crisis, a random glucose >/= 200 mg/dl is diagnostic for diabetes. In the absence of unequivocal hyperglycemia, results should be confirmed by repeat testing. The classification and Diagnosis of Diabetes Diabetes Care 2021; 46: S19-S40. Current interpretive data was last revised 2022. Calcium 10.2 8.5 - 10.3 mg/dL [facility] Blood 04/04/2024 3:45 AM POLICY CHECKER 04/04/2024 5:35 AM POLICY CHECKER us Donnie Erazo MD LAB BLOOD ORDERABLES Final Resul t [facility] [place] [address] * eGFR (04/03/2024 6:35 AM POLICY CHECKER) eGFR 61 >=60 mL/min/1. 73 m2 Comment: Interpretive Data Reference Interval Normal >/= 90 mL/min/1.73m2 Mildly decreased* 60 - 89 mL/min/1.73m2 Mildly to moderately decreased 45 - 59 mL/min/1.73m2 Moderately to severely decreased 30 - 44 mL/min/1.73m2 Severely decreased 15 - 29 mL/min/1.73m2 Kidney Failure < 15 mL/min/1.73m2 *Relative to young adult level Estimated glomerular filtration rate is determined by the 2020 CKD-EPI equation recommended by the National Kidney Foundation (A Unifying Approach to GFR Estimation: Recommendations of the NKF-ASK Task Force on Reassessing the Inclusion of Race in Diagnosing Kidney Disease, JASN 2020). The CKD-EPI equation should not be used for patients with unstable renal function and has not been validated in children and those over 70. Current interpretive data was last reviewed 2020. Blood 04/03/2024 6:35 AM POLICY CHECKER 04/03/2024 7:58 AM POLICY CHECKER us Donnie Erazo MD LAB BLOOD ORDERABLES Final Resul t [facility] [place] [address] * Differential, auto (04/03/2024 6:35 AM POLICY CHECKER) Neutrophil abs 2.5 1.5 - 6.5 K/cumm Imm gran abs 0.0 0.0 - 0.1 K/cumm [facility] Lymphocyte abs 1.2 0.8 - 3.3 K/cumm [facility] Monocyte abs 0.5 0.2 - 0.8 K/cumm [facility] Eosinophil abs 0.2 0.0 - 0.5 K/cumm [facility] Basophil abs 0.0 0.0 - 0.1 K/cumm [facility] Neutrophil pct 56.1 % [facility] Comment: Interpretive Data Percent cell count reference ranges are not reported, since discordance with absolute values may lead to misinterpretation of CBC data. Current Interpretive Data was last revised on 2017. Imm gran pct 0.5 % [facility] Comment: Interpretive Data Percent cell count reference ranges are not reported, since discordance with absolute values may lead to misinterpretation of CBC data. Current Interpretive Data was last revised on 2017. Lymphocyte pct 28.1 % [facility] Comment: Interpretive Data Percent cell count reference ranges are not reported, since discordance with absolute values may lead to misinterpretation of CBC data. Current Interpretive Data was last revised on 2017. Monocyte pct 11.5 % [facility] Comment: Interpretive Data Percent cell count reference ranges are not reported, since discordance with absolute values may lead to misinterpretation of CBC data. Current Interpretive Data was last revised on 2017. Eosinophil pct 3.6 % [facility] Comment: Interpretive Data Percent cell count reference ranges are not reported, since discordance with absolute values may lead to misinterpretation of CBC data. Current Interpretive Data was last revised on 2017. Basophil pct 0.2 % [facility] Comment: Interpretive Data Percent cell count reference ranges are not reported, since discordance with absolute values may lead to misinterpretation of CBC data. Current Interpretive Data was last revised on 2017. Blood 04/03/2024 6:35 AM POLICY CHECKER 04/03/2024 7:58 AM POLICY CHECKER us Donnie Erazo MD LAB BLOOD ORDERABLES Final Resul t Performing Organization Address [facility] de Phone Number [facility] [place] [address] * (ABNORMAL) CBC with auto differential (04/03/2024 6:35 AM POLICY CHECKER) WBC 4.4 3.8 - 9.9 K/cumm Hgb 8.3(L) 11.9 - 15.5 g/dL [facility] Hct 26.6(L) 35.6 - 45.5 % [facility] Plt 105(L) 150 - 400 K/cumm [facility] MPV 10.5 9.1 - 12.3 fL [facility] RBC 2.95(L) 3.90 - 5.20 M/cumm [facility] MCV 90.2 81.3 - 96.4 fL [facility] MCH 28.1 27.1 - 33.3 pg [facility] MCHC 31.2(L) 32.3 - 35.7 g/dL [facility] RDW CV 22.1(H) 11.1 - 14.9 % [facility] RDW SD 70.1(H) 35.7 - 48.1 fL [facility] NRBC abs 0.00 0.00 - 0.01 K/cumm [facility] Blood 04/03/2024 6:35 AM POLICY CHECKER 04/03/2024 7:58 AM POLICY CHECKER us Donnie Erazo MD LAB BLOOD ORDERABLES Final Resul t Performing Organization Address [facility] Co de Phone Number [facility] Department [place] [address] * (ABNORMAL) Basic metabolic panel (04/03/2024 6:35 AM POLICY CHECKER) Pathologist [facility] Sodium 144 135 - 145 mmol/L Potassium, pl 3.7 3.3 - 4.9 mmol/L [facility] Chloride 122(H) 97 - 110 mmol/L [facility] CO2 19(L) 22 - 32 mmol/L [facility] Anion gap 3 2 - 15 mmol/L [facility] BUN 10 6 - 25 mg/dL [facility] Creatinine 0.94 0.60 - 1.10 mg/dL [facility] Glucose 97 70 - 199 mg/dL [facility] Comment: Interpretive Data Fasting glucose >/= 126 mg/dl is diagnostic for diabetes. Fasting is defined as no caloric intake for at least 8 hours. Fasting glucose between 100 mg/dl to 125 mg/dl is diagnostic of prediabetes. In a patient with classic symptoms of hyperglycemia or hyperglycemic crisis, a random glucose >/= 200 mg/dl is diagnostic for diabetes. In the absence of unequivocal hyperglycemia, results should be confirmed by repeat testing. The classification and Diagnosis of Diabetes Diabetes Care 2021; 46: S19-S40. Current interpretive data was last revised 2022. Calcium 10.7(H) 8.5 - 10.3 mg/dL [facility] Blood 04/03/2024 6:35 AM POLICY CHECKER 04/03/2024 7:58 AM POLICY CHECKER us Donnie Erazo MD LAB BLOOD ORDERABLES Final Resul t [facility] [place] [address] * eGFR (04/03/2024 3:10 AM POLICY CHECKER) Pathologist [facility] eGFR 61 >=60 mL/min/1. 73 m2 Comment: Interpretive Data Reference Interval Normal >/= 90 mL/min/1.73m2 Mildly decreased* 60 - 89 mL/min/1.73m2 Mildly to moderately decreased 45 - 59 mL/min/1.73m2 Moderately to severely decreased 30 - 44 mL/min/1.73m2 Severely decreased 15 - 29 mL/min/1.73m2 Kidney Failure < 15 mL/min/1.73m2 *Relative to young adult level Estimated glomerular filtration rate is determined by the 2020 CKD-EPI equation recommended by the National Kidney Foundation (A Unifying Approach to GFR Estimation: Recommendations of the NKF-ASK Task Force on Reassessing the Inclusion of Race in Diagnosing Kidney Disease, JASN 2020). The CKD-EPI equation should not be used for patients with unstable renal function and has not been validated in children and those over 70. Current interpretive data was last reviewed 2020. Blood 04/03/2024 3:10 AM POLICY CHECKER 04/03/2024 5:47 AM POLICY CHECKER us Donnie Erazo MD LAB BLOOD ORDERABLES Final Resul t [facility] Department [place] [address] * (ABNORMAL) Basic metabolic panel (04/03/2024 3:10 AM POLICY CHECKER) Pathologist [facility] Sodium 143 135 - 145 mmol/L Potassium, pl 3.9 3.3 - 4.9 mmol/L [facility] Chloride 121(H) 97 - 110 mmol/L [facility] CO2 18(L) 22 - 32 mmol/L [facility] Anion gap 4 2 - 15 mmol/L [facility] BUN 11 6 - 25 mg/dL [facility] Creatinine 0.94 0.60 - 1.10 mg/dL [facility] Glucose 93 70 - 199 mg/dL [facility] Comment: Interpretive Data Fasting glucose >/= 126 mg/dl is diagnostic for diabetes. Fasting is defined as no caloric intake for at least 8 hours. Fasting glucose between 100 mg/dl to 125 mg/dl is diagnostic of prediabetes. In a patient with classic symptoms of hyperglycemia or hyperglycemic crisis, a random glucose >/= 200 mg/dl is diagnostic for diabetes. In the absence of unequivocal hyperglycemia, results should be confirmed by repeat testing. The classification and Diagnosis of Diabetes Diabetes Care 202; 46: S19-S40. Current interpretive data was last revised 2022. Calcium 10.2 8.5 - 10.3 mg/dL [facility] Blood 04/03/2024 3:10 AM POLICY CHECKER 04/03/2024 5:39 AM POLICY CHECKER Donnie Erazo MD LAB BLOOD ORDERABLES Final Resul t Performing Organization Address [facility] Co de Phone Number [facility] [place] [address] * eGFR (04/01/2024 4:00 AM POLICY CHECKER) eGFR 65 >=60 mL/min/1. 73 m2 Comment: Interpretive Data Reference Interval Normal >/= 90 mL/min/1.73m2 Mildly decreased* 60 - 89 mL/min/1.73m2 Mildly to moderately decreased 45 - 59 mL/min/1.73m2 Moderately to severely decreased 30 - 44 mL/min/1.73m2 Severely decreased 15 - 29 mL/min/1.73m2 Kidney Failure < 15 mL/min/1.73m2 *Relative to young adult level Estimated glomerular filtration rate is determined by the 2020 CKD-EPI equation recommended by the National Kidney Foundation (A Unifying Approach to GFR Estimation: Recommendations of the NKF-ASK Task Force on Reassessing the Inclusion of Race in Diagnosing Kidney Disease, JASN 2020). The CKD-EPI equation should not be used for patients with unstable renal function and has not been validated in children and those over 70. Current interpretive data was last reviewed 2020. Blood 04/01/2024 4:00 AM POLICY CHECKER 04/01/2024 6:16 AM POLICY CHECKER Donnie Erazo MD LAB BLOOD ORDERABLES Final Resul t Performing Organization Address City/[facility]/ZIP Co de Phone Number [facility] [place] [address] * (ABNORMAL) Basic metabolic panel (04/01/2024 4:00 AM POLICY CHECKER) Sodium 146(H) 135 - 145 mmol/L Potassium, pl 3.3 3.3 - 4.9 mmol/L [facility] Chloride 122(H) 97 - 110 mmol/L [facility] CO2 19(L) 22 - 32 mmol/L [facility] Anion gap 5 2 - 15 mmol/L [facility] BUN 12 6 - 25 mg/dL [facility] Creatinine 0.89 0.60 - 1.10 mg/dL [facility] Glucose 77 70 - 199 mg/dL [facility] Comment: Interpretive Data Fasting glucose >/= 126 mg/dl is diagnostic for diabetes. Fasting is defined as no caloric intake for at least 8 hours. Fasting glucose between 100 mg/dl to 125 mg/dl is diagnostic of prediabetes. In a patient with classic symptoms of hyperglycemia or hyperglycemic crisis, a random glucose >/= 200 mg/dl is diagnostic for diabetes. In the absence of unequivocal hyperglycemia, results should be confirmed by repeat testing. The classification and Diagnosis of Diabetes Diabetes Care 202; 46: S19-S40. Current interpretive data was last revised 2022. Calcium 10.9(H) 8.5 - 10.3 mg/dL [facility] Blood 04/01/2024 4:0 0 AM POLICY CHECKER 04/01/2024 6:01 AM POLICY CHECKER us Donnie Erazo MD LAB BLOOD ORDERABLES Final Resul t [facility] Department [place] [address] * eGFR (03/31/2024 4:30 AM POLICY CHECKER) eGFR 67 >=60 mL/min/1. 73 m2 Comment: Interpretive Data Reference Interval Normal >/= 90 mL/min/1.73m2 Mildly decreased* 60 - 89 mL/min/1.73m2 Mildly to moderately decreased 45 - 59 mL/min/1.73m2 Moderately to severely decreased 30 - 44 mL/min/1.73m2 Severely decreased 15 - 29 mL/min/1.73m2 Kidney Failure < 15 mL/min/1.73m2 *Relative to young adult level Estimated glomerular filtration rate is determined by the 2020 CKD-EPI equation recommended by the National Kidney Foundation (A Unifying Approach to GFR Estimation: Recommendations of the NKF-ASK Task Force on Reassessing the Inclusion of Race in Diagnosing Kidney Disease, JASN 202). The CKD-EPI equation should not be used for patients with unstable renal function and has not been validated in children and those over 70. Current interpretive data was last reviewed 2020. Blood 03/31/2024 4:30 AM POLICY CHECKER 03/31/2024 5:55 AM POLICY CHECKER us Donnie Erazo MD LAB BLOOD ORDERABLES Final Resul t Performing Organization Address [facility] de Phone Number [facility] [place] [employer] [address] * (ABNORMAL) Hemoglobin (03/31/2024 4:30 AM POLICY CHECKER) Hgb 7.3(L) 11.9 - 15.5 g/dL Blood 03/31/2024 4:30 AM POLICY CHECKER 03/31/2024 5:41 AM POLICY CHECKER us Donnie Erazo MD LAB BLOOD ORDERABLES Final Resul t Performing Organization Address [facility] de Phone Number [facility] [place] [employer] [place] [address] * (ABNORMAL) Hematocrit (03/31/2024 4:30 AM POLICY CHECKER) Hct 23.6(L) 35.6 - 45.5 % Blood 03/31/2024 4:30 AM POLICY CHECKER 03/31/2024 5:41 AM POLICY CHECKER us Donnie Erazo MD LAB BLOOD ORDERABLES Final Resul t Performing Organization Address [facility] de Phone Number [facility] [place] [employer] [place] [address] * (ABNORMAL) Ferritin (03/31/2024 4:30 AM POLICY CHECKER) Ferritin 535(H) 13 - 150 ng/mL Blood 03/31/2024 4:30 AM POLICY CHECKER 03/31/2024 5:41 AM POLICY CHECKER Donnie Erazo MD LAB BLOOD ORDERABLES Final Resul t Performing Organization Address [facility] Co de Phone Number [facility] Department [place] [address] * (ABNORMAL) Basic metabolic panel (03/31/2024 4:30 AM POLICY CHECKER) [facility] Sodium 140 135 - 145 mmol/L Potassium, pl 3.4 3.3 - 4.9 mmol/L [facility] Chloride 118(H) 97 - 110 mmol/L [facility] CO2 15(L) 22 - 32 mmol/L [facility] Anion gap 7 2 - 15 mmol/L [facility] BUN 13 6 - 25 mg/dL [facility] Creatinine 0.87 0.60 - 1.10 mg/dL [facility] Glucose 79 70 - 199 mg/dL [facility] Comment: Interpretive Data Fasting glucose >/= 126 mg/dl is diagnostic for diabetes. Fasting is defined as no caloric intake for at least 8 hours. Fasting glucose between 100 mg/dl to 125 mg/dl is diagnostic of prediabetes. In a patient with classic symptoms of hyperglycemia or hyperglycemic crisis, a random glucose >/= 200 mg/dl is diagnostic for diabetes. In the absence of unequivocal hyperglycemia, results should be confirmed by repeat testing. The classification and Diagnosis of Diabetes Diabetes Care 2021; 46: S19-S40. Current interpretive data was last revised 2022. Calcium 10.3 8.5 - 10.3 mg/dL [facility] Blood 03/31/2024 4:30 AM POLICY CHECKER 03/31/2024 5:41 AM POLICY CHECKER Donnie Erazo MD LAB BLOOD ORDERABLES Final Resul t Performing Organization Address [facility] Co de Phone Number [facility] [place] [address] * C. difficile testing Stool (03/30/2024 5:18 PM POLICY CHECKER) [facility] Result Negative Negative Toxin Result Negative Negative [facility] C. diff result Negative, free toxin Negative, free toxin [facility] C. diff interp Negative for toxigenic Clostridioides (Clostridium) difficile. Analysis was performed using a glutamate dehydrogenase antigen detection assay combined with a C. difficile toxin detection assay. [facility] Stool 03/30/2024 5:18 PM POLICY CHECKER 03/31/2024 7:00 AM POLICY CHECKER us Donnie Erazo MD LAB MICROBIOLOGY - GENERAL ORDER [place] Final Result Performing Organization Address City/[facility]/ZIP Co de Phone Number [facility] Department [place] [address] * eGFR (03/30/2024 4:00 AM POLICY CHECKER) eGFR 61 >=60 mL/min/1. 73 m2 Comment: Interpretive Data Reference Interval Normal >/= 90 mL/min/1.73m2 Mildly decreased* 60 - 89 mL/min/1.73m2 Mildly to moderately decreased 45 - 59 mL/min/1.73m2 Moderately to severely decreased 30 - 44 mL/min/1.73m2 Severely decreased 15 - 29 mL/min/1.73m2 Kidney Failure < 15 mL/min/1.73m2 *Relative to young adult level Estimated glomerular filtration rate is determined by the 2020 CKD-EPI equation recommended by the National Kidney Foundation (A Unifying Approach to GFR Estimation: Recommendations of the NKF-ASK Task Force on Reassessing the Inclusion of Race in Diagnosing Kidney Disease, JASN 2020). The CKD-EPI equation should not be used for patients with unstable renal function and has not been validated in children and those over 70. Current interpretive data was last reviewed 2020. Blood 03/30/2024 4:00 AM POLICY CHECKER 03/30/2024 8:44 AM POLICY CHECKER us Notinfile Unknown LAB BLOOD ORDERABLES Final Res ult [facility] [place] [address] * Differential, auto (03/30/2024 4:00 AM POLICY CHECKER) Neutrophil abs 2.0 1.5 - 6.5 K/cumm Imm gran abs 0.0 0.0 - 0.1 K/cumm [facility] Lymphocyte abs 1.3 0.8 - 3.3 K/cumm [facility] Monocyte abs 0.5 0.2 - 0.8 K/cumm [facility] Eosinophil abs 0.2 0.0 - 0.5 K/cumm [facility] Basophil abs 0.0 0.0 - 0.1 K/cumm [facility] Neutrophil pct 50.8 % [facility] Comment: Interpretive Data Percent cell count reference ranges are not reported, since discordance with absolute values may lead to misinterpretation of CBC data. Current Interpretive Data was last revised on 2017. Imm gran pct 0.5 % [facility] Comment: Interpretive Data Percent cell count reference ranges are not reported, since discordance with absolute values may lead to misinterpretation of CBC data. Current Interpretive Data was last revised on 2017. Lymphocyte pct 32.7 % [facility] Comment: Interpretive Data Percent cell count reference ranges are not reported, since discordance with absolute values may lead to misinterpretation of CBC data. Current Interpretive Data was last revised on 2017. Monocyte pct 11.4 % [facility] Comment: Interpretive Data Percent cell count reference ranges are not reported, since discordance with absolute values may lead to misinterpretation of CBC data. Current Interpretive Data was last revised on 2017. Eosinophil pct 4.3 % [facility] Comment: Interpretive Data Percent cell count reference ranges are not reported, since discordance with absolute values may lead to misinterpretation of CBC data. Current Interpretive Data was last revised on 2017. Basophil pct 0.3 % [facility] Comment: Interpretive Data Percent cell count reference ranges are not reported, since discordance with absolute values may lead to misinterpretation of CBC data. Current Interpretive Data was last revised on 2017. Blood 03/30/2024 4:00 AM POLICY CHECKER 03/30/2024 8:29 AM POLICY CHECKER us Notinfile Unknown LAB BLOOD ORDERABLES Final Res ult Performing Organization Address City/[facility]/ZIP Co de Phone Number [facility] [place] [address] * (ABNORMAL) CBC with auto differential (03/30/2024 4:00 AM POLICY CHECKER) [facility] WBC 3.9 3.8 - 9.9 K/cumm Hgb 6.3(C) 11.9 - 15.5 g/dL [facility] Comment:Critical result call ed to and read back by GALEN NORTON RN on 03 30 2024 at 0918 to Carin Stout. Hct 20.4(L) 35.6 - 45.5 % [facility] Plt 77(L) 150 - 400 K/cumm [facility] MPV Not Measured 9.1 - 12.3 fL [facility] RBC 2.22(L) 3.90 - 5.20 M/cumm [facility] MCV 91.9 81.3 - 96.4 fL [facility] MCH 28.4 27.1 - 33.3 pg [facility] MCHC 30.9(L) 32.3 - 35.7 g/dL [facility] RDW CV 22.7(H) 11.1 - 14.9 % [facility] RDW SD 73.9(H) 35.7 - 48.1 fL [facility] NRBC abs 0.00 0.00 - 0.01 K/cumm [facility] Blood 03/30/2024 4:00 AM POLICY CHECKER 03/30/2024 8:29 AM POLICY CHECKER us Notinfile Unknown LAB BLOOD ORDERABLES Final Res ult Performing Organization Address [facility] Co de Phone Number [facility] [place] [address] * Phosphorus (03/30/2024 4:00 AM POLICY CHECKER) [facility] Phosphorus, pl 2.5 2.3 - 4.5 mg/dL Blood 03/30/2024 4:00 AM POLICY CHECKER 03/30/2024 8:28 AM POLICY CHECKER us Notinfile Unknown LAB BLOOD ORDERABLES Final Res ult Performing Organization Address [facility] Co de Phone Number [facility] [place] [address] * (ABNORMAL) Magnesium (03/30/2024 4:00 AM POLICY CHECKER) [facility] Magnesium 1.3(L) 1.4 - 2.5 mg/dL Blood 03/30/2024 4:00 AM POLICY CHECKER 03/30/2024 8:28 AM POLICY CHECKER us Notinfile Unknown LAB BLOOD ORDERABLES Final Res ult Performing Organization Address [facility] de Phone Number [facility] [place] [employer] [place] [address] * (ABNORMAL) Comprehensive metabolic panel (03/30/2024 4:00 AM POLICY CHECKER) [facility] Sodium 142 135 - 145 mmol/L Potassium, pl 3.1(L) 3.3 - 4.9 mmol/L [facility] Chloride 120(H) 97 - 110 mmol/L [facility] CO2 17(L) 22 - 32 mmol/L [facility] Anion gap 5 2 - 15 mmol/L [facility] BUN 16 6 - 25 mg/dL [facility] Creatinine 0.94 0.60 - 1.10 mg/dL [facility] Glucose 80 70 - 199 mg/dL [facility] Comment: Interpretive Data Fasting glucose >/= 126 mg/dl is diagnostic for diabetes. Fasting is defined as no caloric intake for at least 8 hours. Fasting glucose between 100 mg/dl to 125 mg/dl is diagnostic of prediabetes. In a patient with classic symptoms of hyperglycemia or hyperglycemic crisis, a random glucose >/= 200 mg/dl is diagnostic for diabetes. In the absence of unequivocal hyperglycemia, results should be confirmed by repeat testing. The classification and Diagnosis of Diabetes Diabetes Care 2021; 46: S19-S40. Current interpretive data was last revised 2022. Calcium 10.3 8.5 - 10.3 mg/dL [facility] Bilirubin, total 0.3 0.1 - 1.2 mg/dL [facility] Protein, pl 6.1(L) 6.5 - 8.5 g/dL [facility] Albumin 2.1(L) 3.5 - 5.0 g/dL [facility] Alk phos 518(H) 40 - 130 Units/L [facility] ALT 172(H) 7 - 45 Units/L [facility] AST 198(H) 10 - 45 Units/L [facility] Blood 03/30/2024 4:00 AM POLICY CHECKER 03/30/2024 8:28 AM POLICY CHECKER us Notinfile Unknown LAB BLOOD ORDERABLES Final Res ult [facility] Department [place] [address] * eGFR (03/29/2024 3:30 AM POLICY CHECKER) eGFR 61 >=60 mL/min/1. 73 m2 Comment: Interpretive Data Reference Interval Normal >/= 90 mL/min/1.73m2 Mildly decreased* 60 - 89 mL/min/1.73m2 Mildly to moderately decreased 45 - 59 mL/min/1.73m2 Moderately to severely decreased 30 - 44 mL/min/1.73m2 Severely decreased 15 - 29 mL/min/1.73m2 Kidney Failure < 15 mL/min/1.73m2 *Relative to young adult level Estimated glomerular filtration rate is determined by the 2020 CKD-EPI equation recommended by the National Kidney Foundation (A Unifying Approach to GFR Estimation: Recommendations of the NKF-ASK Task Force on Reassessing the Inclusion of Race in Diagnosing Kidney Disease, JASN 2020). The CKD-EPI equation should not be used for patients with unstable renal function and has not been validated in children and those over 70. Current interpretive data was last reviewed 2020. Blood 03/29/2024 3:30 AM POLICY CHECKER 03/29/2024 5:47 AM POLICY CHECKER us Donnie Erazo MD LAB BLOOD ORDERABLES Final Resul t [facility] [place] [address] * Differential, auto (03/29/2024 3:30 AM POLICY CHECKER) Neutrophil abs 2.6 1.5 - 6.5 K/cumm Imm gran abs 0.0 0.0 - 0.1 K/cumm [facility] Lymphocyte abs 1.2 0.8 - 3.3 K/cumm [facility] Monocyte abs 0.5 0.2 - 0.8 K/cumm [facility] Eosinophil abs 0.2 0.0 - 0.5 K/cumm [facility] Basophil abs 0.0 0.0 - 0.1 K/cumm [facility] Neutrophil pct 57.2 % [facility] Comment: Interpretive Data Percent cell count reference ranges are not reported, since discordance with absolute values may lead to misinterpretation of CBC data. Current Interpretive Data was last revised on 2017. Imm gran pct 0.4 % [facility] Comment: Interpretive Data Percent cell count reference ranges are not reported, since discordance with absolute values may lead to misinterpretation of CBC data. Current Interpretive Data was last revised on 2017. Lymphocyte pct 26.8 % [facility] Comment: Interpretive Data Percent cell count reference ranges are not reported, since discordance with absolute values may lead to misinterpretation of CBC data. Current Interpretive Data was last revised on 2017. Monocyte pct 10.2 % [facility] Comment: Interpretive Data Percent cell count reference ranges are not reported, since discordance with absolute values may lead to misinterpretation of CBC data. Current Interpretive Data was last revised on 2017. Eosinophil pct 5.0 % [facility] Comment: Interpretive Data Percent cell count reference ranges are not reported, since discordance with absolute values may lead to misinterpretation of CBC data. Current Interpretive Data was last revised on 2017. Basophil pct 0.4 % [facility] Comment: Interpretive Data Percent cell count reference ranges are not reported, since discordance with absolute values may lead to misinterpretation of CBC data. Current Interpretive Data was last revised on 2017. Blood 03/29/2024 3:30 AM POLICY CHECKER 03/29/2024 5:48 AM POLICY CHECKER us Donnie Erazo MD LAB BLOOD ORDERABLES Final Resul t [facility] [place] [address] * (ABNORMAL) CBC with auto differential (03/29/2024 3:30 AM POLICY CHECKER) WBC 4.6 3.8 - 9.9 K/cumm Hgb 7.1(L) 11.9 - 15.5 g/dL [facility] Hct 23.1(L) 35.6 - 45.5 % [facility] Plt 78(L) 150 - 400 K/cumm [facility] MPV Not Measured 9.1 - 12.3 fL [facility] RBC 2.52(L) 3.90 - 5.20 M/cumm [facility] MCV 91.7 81.3 - 96.4 fL [facility] MCH 28.2 27.1 - 33.3 pg [facility] MCHC 30.7(L) 32.3 - 35.7 g/dL [facility] RDW CV 23.2(H) 11.1 - 14.9 % [facility] RDW SD 75.7(H) 35.7 - 48.1 fL [facility] NRBC abs 0.00 0.00 - 0.01 K/cumm [facility] Blood 03/29/2024 3:30 AM POLICY CHECKER 03/29/2024 5:48 AM POLICY CHECKER Narrative [facility] - 03/29/2024 6:18 AM POLICY CHECKER [id number] Donnie Erazo MD LAB BLOOD ORDERABLES Final Resul t Performing Organization Address City/[facility]/ZIP Co de Phone Number [facility] Department [place] [address] * (ABNORMAL) Basic metabolic panel (03/29/2024 3:30 AM POLICY CHECKER) [facility] Sodium 140 135 - 145 mmol/L Potassium, pl 3.3 3.3 - 4.9 mmol/L [facility] Chloride 119(H) 97 - 110 mmol/L [facility] CO2 16(L) 22 - 32 mmol/L [facility] Anion gap 5 2 - 15 mmol/L [facility] BUN 21 6 - 25 mg/dL [facility] Creatinine 0.94 0.60 - 1.10 mg/dL [facility] Glucose 123 70 - 199 mg/dL [facility] Comment: Interpretive Data Fasting glucose >/= 126 mg/dl is diagnostic for diabetes. Fasting is defined as no caloric intake for at least 8 hours. Fasting glucose between 100 mg/dl to 125 mg/dl is diagnostic of prediabetes. In a patient with classic symptoms of hyperglycemia or hyperglycemic crisis, a random glucose >/= 200 mg/dl is diagnostic for diabetes. In the absence of unequivocal hyperglycemia, results should be confirmed by repeat testing. The classification and Diagnosis of Diabetes Diabetes Care 2021; 46: S19-S40. Current interpretive data was last revised 2022. Calcium 10.5(H) 8.5 - 10.3 mg/dL [facility] Blood 03/29/2024 3:30 AM POLICY CHECKER 03/29/2024 5:47 AM POLICY CHECKER Narrative [facility] - 03/29/2024 6:52 AM [facility] [id number] Donnie Erazo MD LAB BLOOD ORDERABLES Final Resul t Performing Organization Address City/[facility]/ZIP Co de Phone Number [facility] Department [place] [address] * (ABNORMAL) eGFR (03/28/2024 4:00 AM POLICY CHECKER) eGFR 53(L) >=60 mL/min/1. 73 m2 Comment: Interpretive Data Reference Interval Normal >/= 90 mL/min/1.73m2 Mildly decreased* 60 - 89 mL/min/1.73m2 Mildly to moderately decreased 45 - 59 mL/min/1.73m2 Moderately to severely decreased 30 - 44 mL/min/1.73m2 Severely decreased 15 - 29 mL/min/1.73m2 Kidney Failure < 15 mL/min/1.73m2 *Relative to young adult level Estimated glomerular filtration rate is determined by the 2020 CKD-EPI equation recommended by the National Kidney Foundation (A Unifying Approach to GFR Estimation: Recommendations of the NKF-ASK Task Force on Reassessing the Inclusion of Race in Diagnosing Kidney Disease, JASN 2020). The CKD-EPI equation should not be used for patients with unstable renal function and has not been validated in children and those over 70. Current interpretive data was last reviewed 2020. Blood 03/28/2024 4:00 AM POLICY CHECKER 03/28/2024 6:44 AM POLICY CHECKER us Donnie Erazo MD LAB BLOOD ORDERABLES Final Resul t [facility] Department [place] [address] * (ABNORMAL) Renal function panel (03/28/2024 4:00 AM POLICY CHECKER) Pathologist [facility] Sodium 143 135 - 145 mmol/L Potassium, pl 3.7 3.3 - 4.9 mmol/L [facility] Chloride 123(H) 97 - 110 mmol/L [facility] CO2 15(L) 22 - 32 mmol/L [facility] Anion gap 5 2 - 15 mmol/L [facility] BUN 28(H) 6 - 25 mg/dL [facility] Creatinine 1.05 0.60 - 1.10 mg/dL [facility] Glucose 102 70 - 199 mg/dL [facility] Comment: Interpretive Data Fasting glucose >/= 126 mg/dl is diagnostic for diabetes. Fasting is defined as no caloric intake for at least 8 hours. Fasting glucose between 100 mg/dl to 125 mg/dl is diagnostic of prediabetes. In a patient with classic symptoms of hyperglycemia or hyperglycemic crisis, a random glucose >/= 200 mg/dl is diagnostic for diabetes. In the absence of unequivocal hyperglycemia, results should be confirmed by repeat testing. The classification and Diagnosis of Diabetes Diabetes Care 2021; 46: S19-S40. Current interpretive data was last revised 2022. Calcium 10.7(H) 8.5 - 10.3 mg/dL [facility] Phosphorus, pl 2.9 2.3 - 4.5 mg/dL [facility] Albumin 2.1(L) 3.5 - 5.0 g/dL [facility] Blood 03/28/2024 4:00 AM POLICY CHECKER 03/28/2024 6:38 AM POLICY CHECKER Donnie Erazo MD LAB BLOOD ORDERABLES Final Resul t [facility] Department [place] [address] * Differential, auto (03/27/2024 9:46 AM POLICY CHECKER) Pathologist [facility] Neutrophil abs 2.4 1.5 - 6.5 K/cumm Imm gran abs 0.0 0.0 - 0.1 K/cumm [facility] Lymphocyte abs 1.2 0.8 - 3.3 K/cumm [facility] Monocyte abs 0.5 0.2 - 0.8 K/cumm [facility] Eosinophil abs 0.3 0.0 - 0.5 K/cumm [facility] Basophil abs 0.0 0.0 - 0.1 K/cumm [facility] Neutrophil pct 55.0 % [facility] Comment: Interpretive Data Percent cell count reference ranges are not reported, since discordance with absolute values may lead to misinterpretation of CBC data. Current Interpretive Data was last revised on 2017. Imm gran pct 0.7 % [facility] Comment: Interpretive Data Percent cell count reference ranges are not reported, since discordance with absolute values may lead to misinterpretation of CBC data. Current Interpretive Data was last revised on 2017. Lymphocyte pct 26.3 % [facility] Comment: Interpretive Data Percent cell count reference ranges are not reported, since discordance with absolute values may lead to misinterpretation of CBC data. Current Interpretive Data was last revised on 2017. Monocyte pct 11.6 % [facility] Comment: Interpretive Data Percent cell count reference ranges are not reported, since discordance with absolute values may lead to misinterpretation of CBC data. Current Interpretive Data was last revised on 2017. Eosinophil pct 5.9 % [facility] Comment: Interpretive Data Percent cell count reference ranges are not reported, since discordance with absolute values may lead to misinterpretation of CBC data. Current Interpretive Data was last revised on 2017. Basophil pct 0.5 % [facility] Comment: Interpretive Data Percent cell count reference ranges are not reported, since discordance with absolute values may lead to misinterpretation of CBC data. Current Interpretive Data was last revised on 2017. Blood 03/27/2024 9:46 AM POLICY CHECKER 03/27/2024 12:55 PM POLICY CHECKER us Donnie Erazo MD LAB BLOOD ORDERABLES Final Resul t [facility] Department [place] [address] * (ABNORMAL) CBC with auto differential (03/27/2024 9:46 AM POLICY CHECKER) WBC 4.4 3.8 - 9.9 K/cumm Hgb 7.1(L) 11.9 - 15.5 g/dL [facility] Hct 23.4(L) 35.6 - 45.5 % [facility] Plt 71(L) 150 - 400 K/cumm [facility] MPV 10.8 9.1 - 12.3 fL [facility] RBC 2.49(L) 3.90 - 5.20 M/cumm [facility] MCV 94.0 81.3 - 96.4 fL [facility] MCH 28.5 27.1 - 33.3 pg [facility] MCHC 30.3(L) 32.3 - 35.7 g/dL [facility] RDW CV 23.8(H) 11.1 - 14.9 % [facility] RDW SD 78.3(H) 35.7 - 48.1 fL [facility] NRBC abs 0.00 0.00 - 0.01 K/cumm [facility] Blood 03/27/2024 9:46 AM POLICY CHECKER 03/27/2024 12:55 PM POLICY CHECKER us Donnie Erazo MD LAB BLOOD ORDERABLES Final Resul t [facility] Department [place] [address] * (ABNORMAL) eGFR (03/27/2024 4:00 AM POLICY CHECKER) eGFR 56(L) >=60 mL/min/1. 73 m2 Comment: Interpretive Data Reference Interval Normal >/= 90 mL/min/1.73m2 Mildly decreased* 60 - 89 mL/min/1.73m2 Mildly to moderately decreased 45 - 59 mL/min/1.73m2 Moderately to severely decreased 30 - 44 mL/min/1.73m2 Severely decreased 15 - 29 mL/min/1.73m2 Kidney Failure < 15 mL/min/1.73m2 *Relative to young adult level Estimated glomerular filtration rate is determined by the 2020 CKD-EPI equation recommended by the National Kidney Foundation (A Unifying Approach to GFR Estimation: Recommendations of the NKF-ASK Task Force on Reassessing the Inclusion of Race in Diagnosing Kidney Disease, JASN 202). The CKD-EPI equation should not be used for patients with unstable renal function and has not been validated in children and those over 70. Current interpretive data was last reviewed 2020. Blood 03/27/2024 4:00 AM POLICY CHECKER 03/27/2024 5:47 AM POLICY CHECKER us Donnie Erazo MD LAB BLOOD ORDERABLES Final Resul t [facility] Department [place] [address] * Differential, auto (03/27/2024 4:00 AM POLICY CHECKER) Neutrophil abs 2.5 1.5 - 6.5 K/cumm Imm gran abs 0.0 0.0 - 0.1 K/cumm [facility] Lymphocyte abs 1.4 0.8 - 3.3 K/cumm [facility] Monocyte abs 0.6 0.2 - 0.8 K/cumm [facility] Eosinophil abs 0.2 0.0 - 0.5 K/cumm [facility] Basophil abs 0.0 0.0 - 0.1 K/cumm [facility] Neutrophil pct 53.0 % [facility] Comment: Interpretive Data Percent cell count reference ranges are not reported, since discordance with absolute values may lead to misinterpretation of CBC data. Current Interpretive Data was last revised on 2017. Imm gran pct 0.4 % [facility] Comment: Interpretive Data Percent cell count reference ranges are not reported, since discordance with absolute values may lead to misinterpretation of CBC data. Current Interpretive Data was last revised on 2017. Lymphocyte pct 28.8 % [facility] Comment: Interpretive Data Percent cell count reference ranges are not reported, since discordance with absolute values may lead to misinterpretation of CBC data. Current Interpretive Data was last revised on 2017. Monocyte pct 12.9 % [facility] Comment: Interpretive Data Percent cell count reference ranges are not reported, since discordance with absolute values may lead to misinterpretation of CBC data. Current Interpretive Data was last revised on 2017. Eosinophil pct 4.7 % [facility] Comment: Interpretive Data Percent cell count reference ranges are not reported, since discordance with absolute values may lead to misinterpretation of CBC data. Current Interpretive Data was last revised on 2017. Basophil pct 0.2 % [facility] Comment: Interpretive Data Percent cell count reference ranges are not reported, since discordance with absolute values may lead to misinterpretation of CBC data. Current Interpretive Data was last revised on 2017. Blood 03/27/2024 4:00 AM POLICY CHECKER 03/27/2024 5:28 AM POLICY CHECKER us Donnie Erazo MD LAB BLOOD ORDERABLES Final Resul t Performing Organization Address [facility] de Phone Number [facility] [place] [address] * (ABNORMAL) CBC with auto differential (03/27/2024 4:00 AM POLICY CHECKER) Pathologist [facility] WBC 4.7 3.8 - 9.9 K/cumm Hgb 6.8(L) 11.9 - 15.5 g/dL [facility] Hct 22.4(L) 35.6 - 45.5 % [facility] Plt 76(L) 150 - 400 K/cumm [facility] MPV 11.1 9.1 - 12.3 fL [facility] RBC 2.41(L) 3.90 - 5.20 M/cumm [facility] MCV 92.9 81.3 - 96.4 fL [facility] MCH 28.2 27.1 - 33.3 pg [facility] MCHC 30.4(L) 32.3 - 35.7 g/dL [facility] RDW CV 23.7(H) 11.1 - 14.9 % [facility] RDW SD 78.1(H) 35.7 - 48.1 fL [facility] NRBC abs 0.00 0.00 - 0.01 K/cumm [facility] Blood 03/27/2024 4:00 AM POLICY CHECKER 03/27/2024 5:28 AM POLICY CHECKER us Donnie Erazo MD LAB BLOOD ORDERABLES Final Resul t Performing Organization Address [facility] Co de Phone Number [facility] Department [place] [address] * Phosphorus (03/27/2024 4:00 AM POLICY CHECKER) Pathologist [facility] Phosphorus, pl 2.6 2.3 - 4.5 mg/dL Blood 03/27/2024 4:00 AM POLICY CHECKER 03/27/2024 5:27 AM POLICY CHECKER us Donnie Erazo MD LAB BLOOD ORDERABLES Final Resul t Performing Organization Address City/[facility] Co de Phone Number [facility] [place] [address] * Magnesium (03/27/2024 4:00 AM POLICY CHECKER) [facility] Magnesium 1.9 1.4 - 2.5 mg/dL Blood 03/27/2024 4:00 AM POLICY CHECKER 03/27/2024 5:27 AM POLICY CHECKER us Donnie Erazo MD LAB BLOOD ORDERABLES Final Resul t Performing Organization Address [facility] de Phone Number [facility] [place] [address] * (ABNORMAL) Comprehensive metabolic panel (03/27/2024 4:00 AM POLICY CHECKER) [facility] Sodium 145 135 - 145 mmol/L Potassium, pl 3.8 3.3 - 4.9 mmol/L [facility] Chloride 123(H) 97 - 110 mmol/L [facility] CO2 16(L) 22 - 32 mmol/L [facility] Anion gap 6 2 - 15 mmol/L [facility] BUN 32(H) 6 - 25 mg/dL [facility] Creatinine 1.01 0.60 - 1.10 mg/dL [facility] Glucose 84 70 - 199 mg/dL [facility] Comment: Interpretive Data Fasting glucose >/= 126 mg/dl is diagnostic for diabetes. Fasting is defined as no caloric intake for at least 8 hours. Fasting glucose between 100 mg/dl to 125 mg/dl is diagnostic of prediabetes. In a patient with classic symptoms of hyperglycemia or hyperglycemic crisis, a random glucose >/= 200 mg/dl is diagnostic for diabetes. In the absence of unequivocal hyperglycemia, results should be confirmed by repeat testing. The classification and Diagnosis of Diabetes Diabetes Care 2021; 46: S19-S40. Current interpretive data was last revised 2022. Calcium 10.4(H) 8.5 - 10.3 mg/dL [facility] Bilirubin, total 0.3 0.1 - 1.2 mg/dL [facility] Protein, pl 6.8 6.5 - 8.5 g/dL [facility] Albumin 2.3(L) 3.5 - 5.0 g/dL [facility] Alk phos 258(H) 40 - 130 Units/L [facility] ALT 78(H) 7 - 45 Units/L [facility] AST 90(H) 10 - 45 Units/L [facility] Blood 03/27/2024 4:00 AM POLICY CHECKER 03/27/2024 5:27 AM POLICY CHECKER us Donnie Erazo MD LAB BLOOD ORDERABLES Final Resul t [facility] Department [place] [address] * (ABNORMAL) eGFR (03/24/2024 4:00 AM POLICY CHECKER) eGFR 52(L) >=60 mL/min/1. 73 m2 Comment: Interpretive Data Reference Interval Normal >/= 90 mL/min/1.73m2 Mildly decreased* 60 - 89 mL/min/1.73m2 Mildly to moderately decreased 45 - 59 mL/min/1.73m2 Moderately to severely decreased 30 - 44 mL/min/1.73m2 Severely decreased 15 - 29 mL/min/1.73m2 Kidney Failure < 15 mL/min/1.73m2 *Relative to young adult level Estimated glomerular filtration rate is determined by the 2020 CKD-EPI equation recommended by the National Kidney Foundation (A Unifying Approach to GFR Estimation: Recommendations of the NKF-ASK Task Force on Reassessing the Inclusion of Race in Diagnosing Kidney Disease, JASN 2020). The CKD-EPI equation should not be used for patients with unstable renal function and has not been validated in children and those over 70. Current interpretive data was last reviewed 2020. Blood 03/24/2024 4:00 AM POLICY CHECKER 03/24/2024 5:53 AM POLICY CHECKER us Donnie Erazo MD LAB BLOOD ORDERABLES Final Resul t Performing Organization Address City/[facility] de Phone Number [facility] [place] [address] * Phosphorus (03/24/2024 4:00 AM POLICY CHECKER) Pathologist [facility] Phosphorus, pl 3.5 2.3 - 4.5 mg/dL Blood 03/24/2024 4:00 AM POLICY CHECKER 03/24/2024 5:43 AM POLICY CHECKER us Donnie Erazo MD LAB BLOOD ORDERABLES Final Resul t Performing Organization Address [facility] de Phone Number [facility] [place] [address] * (ABNORMAL) Basic metabolic panel (03/24/2024 4:00 AM POLICY CHECKER) Pathologist [facility] Sodium 141 135 - 145 mmol/L Potassium, pl 4.5 3.3 - 4.9 mmol/L [facility] Chloride 119(H) 97 - 110 mmol/L [facility] CO2 17(L) 22 - 32 mmol/L [facility] Anion gap 5 2 - 15 mmol/L [facility] BUN 50(H) 6 - 25 mg/dL [facility] Creatinine 1.08 0.60 - 1.10 mg/dL [facility] Glucose 107 70 - 199 mg/dL [facility] Comment: Interpretive Data Fasting glucose >/= 126 mg/dl is diagnostic for diabetes. Fasting is defined as no caloric intake for at least 8 hours. Fasting glucose between 100 mg/dl to 125 mg/dl is diagnostic of prediabetes. In a patient with classic symptoms of hyperglycemia or hyperglycemic crisis, a random glucose >/= 200 mg/dl is diagnostic for diabetes. In the absence of unequivocal hyperglycemia, results should be confirmed by repeat testing. The classification and Diagnosis of Diabetes Diabetes Care 2021; 46: S19-S40. Current interpretive data was last revised 2022. Calcium 10.8(H) 8.5 - 10.3 mg/dL [facility] Blood 03/24/2024 4:00 AM POLICY CHECKER 03/24/2024 5:43 AM POLICY CHECKER us Donnie Erazo MD LAB BLOOD ORDERABLES Final Resul t Performing Organization Address [facility] Co de Phone Number [facility] Department [place] [address] * (ABNORMAL) eGFR (03/23/2024 4:00 AM POLICY CHECKER) eGFR 50(L) >=60 mL/min/1. 73 m2 Comment: Interpretive Data Reference Interval Normal >/= 90 mL/min/1.73m2 Mildly decreased* 60 - 89 mL/min/1.73m2 Mildly to moderately decreased 45 - 59 mL/min/1.73m2 Moderately to severely decreased 30 - 44 mL/min/1.73m2 Severely decreased 15 - 29 mL/min/1.73m2 Kidney Failure < 15 mL/min/1.73m2 *Relative to young adult level Estimated glomerular filtration rate is determined by the 2020 CKD-EPI equation recommended by the National Kidney Foundation (A Unifying Approach to GFR Estimation: Recommendations of the NKF-ASK Task Force on Reassessing the Inclusion of Race in Diagnosing Kidney Disease, JASN 2020). The CKD-EPI equation should not be used for patients with unstable renal function and has not been validated in children and those over 70. Current interpretive data was last reviewed 2020. Blood 03/23/2024 4:00 AM POLICY CHECKER 03/23/2024 6:51 AM POLICY CHECKER us Donnie Erazo MD LAB BLOOD ORDERABLES Final Resul t Performing Organization Address City/[facility] Co de Phone Number [facility] Department [place] [address] * Differential, auto (03/23/2024 4:00 AM POLICY CHECKER) Neutrophil abs 1.9 1.5 - 6.5 K/cumm Imm gran abs 0.0 0.0 - 0.1 K/cumm [facility] Lymphocyte abs 1.5 0.8 - 3.3 K/cumm [facility] Monocyte abs 0.6 0.2 - 0.8 K/cumm [facility] Eosinophil abs 0.2 0.0 - 0.5 K/cumm [facility] Basophil abs 0.0 0.0 - 0.1 K/cumm [facility] Neutrophil pct 44.5 % [facility] Comment: Interpretive Data Percent cell count reference ranges are not reported, since discordance with absolute values may lead to misinterpretation of CBC data. Current Interpretive Data was last revised on 2017. Imm gran pct 1.0 % [facility] Comment: Interpretive Data Percent cell count reference ranges are not reported, since discordance with absolute values may lead to misinterpretation of CBC data. Current Interpretive Data was last revised on 2017. Lymphocyte pct 35.2 % [facility] Comment: Interpretive Data Percent cell count reference ranges are not reported, since discordance with absolute values may lead to misinterpretation of CBC data. Current Interpretive Data was last revised on 2017. Monocyte pct 14.8 % [facility] Comment: Interpretive Data Percent cell count reference ranges are not reported, since discordance with absolute values may lead to misinterpretation of CBC data. Current Interpretive Data was last revised on 2017. Eosinophil pct 4.3 % [facility] Comment: Interpretive Data Percent cell count reference ranges are not reported, since discordance with absolute values may lead to misinterpretation of CBC data. Current Interpretive Data was last revised on 2017. Basophil pct 0.2 % [facility] Comment: Interpretive Data Percent cell count reference ranges are not reported, since discordance with absolute values may lead to misinterpretation of CBC data. Current Interpretive Data was last revised on 2017. Blood 03/23/2024 4:00 AM POLICY CHECKER 03/23/2024 6:44 AM POLICY CHECKER Donnie Erazo MD LAB BLOOD ORDERABLES Final Resul t Performing Organization Address [facility] Co de Phone Number [facility] [place] [address] * (ABNORMAL) CBC with auto differential (03/23/2024 4:00 AM POLICY CHECKER) WBC 4.2 3.8 - 9.9 K/cumm Hgb 7.8(L) 11.9 - 15.5 g/dL [facility] Hct 25.6(L) 35.6 - 45.5 % [facility] Plt 84(L) 150 - 400 K/cumm [facility] MPV Not Measured 9.1 - 12.3 fL [facility] RBC 2.80(L) 3.90 - 5.20 M/cumm [facility] MCV 91.4 81.3 - 96.4 fL [facility] MCH 27.9 27.1 - 33.3 pg [facility] MCHC 30.5(L) 32.3 - 35.7 g/dL [facility] RDW CV 23.9(H) 11.1 - 14.9 % [facility] RDW SD 77.6(H) 35.7 - 48.1 fL [facility] NRBC abs 0.02(H) 0.00 - 0.01 K/cumm [facility] Blood 03/23/2024 4:00 AM POLICY CHECKER 03/23/2024 6:44 AM POLICY CHECKER Donnie Erazo MD LAB BLOOD ORDERABLES Final Resul t Performing Organization Address City/[facility]/ZIP Co de Phone Number [facility] [place] [address] * Phosphorus (03/23/2024 4:00 AM POLICY CHECKER) Phosphorus, pl 3.8 2.3 - 4.5 mg/dL Blood 03/23/2024 4:00 AM POLICY CHECKER 03/23/2024 6:43 AM POLICY CHECKER us Donnie Erazo MD LAB BLOOD ORDERABLES Final Resul t Performing Organization Address City/[facility]/ZIP Co de Phone Number [facility] [place] [address] * Magnesium (03/23/2024 4:00 AM POLICY CHECKER) [facility] Magnesium 2.3 1.4 - 2.5 mg/dL Blood 03/23/2024 4:00 AM POLICY CHECKER 03/23/2024 6:43 AM POLICY CHECKER Donnie Erazo MD LAB BLOOD ORDERABLES Final Resul t Performing Organization Address [facility] de Phone Number [facility] [place] [address] * (ABNORMAL) Comprehensive metabolic panel (03/23/2024 4:00 AM POLICY CHECKER) [facility] Sodium 143 135 - 145 mmol/L Potassium, pl 4.8 3.3 - 4.9 mmol/L [facility] Chloride 120(H) 97 - 110 mmol/L [facility] CO2 17(L) 22 - 32 mmol/L [facility] Anion gap 6 2 - 15 mmol/L [facility] BUN 58(H) 6 - 25 mg/dL [facility] Creatinine 1.11(H) 0.60 - 1.10 mg/dL [facility] Glucose 113 70 - 199 mg/dL [facility] Comment: Interpretive Data Fasting glucose >/= 126 mg/dl is diagnostic for diabetes. Fasting is defined as no caloric intake for at least 8 hours. Fasting glucose between 100 mg/dl to 125 mg/dl is diagnostic of prediabetes. In a patient with classic symptoms of hyperglycemia or hyperglycemic crisis, a random glucose >/= 200 mg/dl is diagnostic for diabetes. In the absence of unequivocal hyperglycemia, results should be confirmed by repeat testing. The classification and Diagnosis of Diabetes Diabetes Care 2021; 46: S19-S40. Current interpretive data was last revised 2022. Calcium 11.2(H) 8.5 - 10.3 mg/dL [facility] Bilirubin, total 0.2 0.1 - 1.2 mg/dL [facility] Protein, pl 7.3 6.5 - 8.5 g/dL [facility] Albumin 2.4(L) 3.5 - 5.0 g/dL [facility] Alk phos 163(H) 40 - 130 Units/L [facility] ALT 54(H) 7 - 45 Units/L [facility] AST 55(H) 10 - 45 Units/L [facility] Blood 03/23/2024 4:00 AM POLICY CHECKER 03/23/2024 6:43 AM POLICY CHECKER Donnie Erazo MD LAB BLOOD ORDERABLES Final Resul t [facility] [place] [address] * (ABNORMAL) eGFR (03/22/2024 4:00 AM POLICY CHECKER) eGFR 55(L) >=60 mL/min/1. 73 m2 Comment: Interpretive Data Reference Interval Normal >/= 90 mL/min/1.73m2 Mildly decreased* 60 - 89 mL/min/1.73m2 Mildly to moderately decreased 45 - 59 mL/min/1.73m2 Moderately to severely decreased 30 - 44 mL/min/1.73m2 Severely decreased 15 - 29 mL/min/1.73m2 Kidney Failure < 15 mL/min/1.73m2 *Relative to young adult level Estimated glomerular filtration rate is determined by the 2020 CKD-EPI equation recommended by the National Kidney Foundation (A Unifying Approach to GFR Estimation: Recommendations of the NKF-ASK Task Force on Reassessing the Inclusion of Race in Diagnosing Kidney Disease, JASN 202). The CKD-EPI equation should not be used for patients with unstable renal function and has not been validated in children and those over 70. Current interpretive data was last reviewed 2020. Blood 03/22/2024 4:00 AM POLICY CHECKER 03/22/2024 5:13 AM POLICY CHECKER Mono Kirkpatrick MD LAB BLOOD ORDERABLES Final R esult Performing Organization Address City/[facility]/[place] [address] * Phosphorus (03/22/2024 4:00 AM POLICY CHECKER) Pathologist [facility] Phosphorus, pl 3.4 2.3 - 4.5 mg/dL Blood 03/22/2024 4:00 AM POLICY CHECKER 03/22/2024 5:13 AM POLICY CHECKER Mono Kirkpatrick MD LAB BLOOD ORDERABLES Final R esult Performing Organization Address [facility] [place] [address] * Magnesium (03/22/2024 4:00 AM POLICY CHECKER) [facility] Magnesium 2.2 1.4 - 2.5 mg/dL Blood 03/22/2024 4:00 AM POLICY CHECKER 03/22/2024 5:13 AM POLICY CHECKER Mono Kirkpatrick MD LAB BLOOD ORDERABLES Final R esult Performing Organization Address City/[facility] Co de Phone Number [facility] [place] [address] * (ABNORMAL) Comprehensive metabolic panel (03/22/2024 4:00 AM POLICY CHECKER) Pathologist [facility] Sodium 143 135 - 145 mmol/L Potassium, pl 4.4 3.3 - 4.9 mmol/L [facility] Chloride 121(H) 97 - 110 mmol/L [facility] CO2 18(L) 22 - 32 mmol/L [facility] Anion gap 4 2 - 15 mmol/L [facility] BUN 57(H) 6 - 25 mg/dL [facility] Creatinine 1.02 0.60 - 1.10 mg/dL [facility] Glucose 127 70 - 199 mg/dL [facility] Comment: Interpretive Data Fasting glucose >/= 126 mg/dl is diagnostic for diabetes. Fasting is defined as no caloric intake for at least 8 hours. Fasting glucose between 100 mg/dl to 125 mg/dl is diagnostic of prediabetes. In a patient with classic symptoms of hyperglycemia or hyperglycemic crisis, a random glucose >/= 200 mg/dl is diagnostic for diabetes. In the absence of unequivocal hyperglycemia, results should be confirmed by repeat testing. The classification and Diagnosis of Diabetes Diabetes Care 2021; 46: S19-S40. Current interpretive data was last revised 2022. Calcium 11.3(H) 8.5 - 10.3 mg/dL [facility] Bilirubin, total 0.3 0.1 - 1.2 mg/dL [facility] Protein, pl 7.3 6.5 - 8.5 g/dL [facility] Albumin 2.5(L) 3.5 - 5.0 g/dL [facility] Alk phos 166(H) 40 - 130 Units/L [facility] ALT 68(H) 7 - 45 Units/L [facility] AST 81(H) 10 - 45 Units/L [facility] Blood 03/22/2024 4:00 AM POLICY CHECKER 03/22/2024 5:13 AM POLICY CHECKER Mono Kirkpatrick MD LAB BLOOD ORDERABLES Final R esult [facility] Department [place] [address] * IR Inject Abscess Catheter (03/21/2024 2:00 PM POLICY CHECKER) Anatomical Region Laterality Modality Body N/A Radio Fluoroscop y 03/21/2024 5:00 PM POLICY CHECKER Impressions 03/21/2024 5:42 PM POLICY CHECKER Resolved right upper quadrant fluid collection and improved small right pleural effusion. Catheters were removed. Dictated by: Yulissa Klein M.D. The radiology attending physician has personally reviewed this study, and had reviewed and/or edited this written report and agrees with it. Electronically signed by: Edgar Pate M.D. Narrative 03/21/2024 5:42 PM POLICY CHECKER EXAMINATION: DRAINAGE CATHETER EVALUATION AND REMOVAL HISTORY: 83-year-old woman with history of colon cancer status post ileocolic resection in the and distal transverse colon mass status post near subtotal completion colectomy and small bowel resection on 01/06/2024 completed by perihepatic abscess status post drainage. Evaluate empyema and intra-abdominal abscess. CT chest, abdomen, and pelvis from 03/15/2024 demonstrated decreased small right pleural effusion and resolved perihepatic fluid collection. ATTENDING PRESENCE: Edgar Pate M.D., the attending radiologist, was present from the beginning to the end of the procedure. SEDATION: The patient did not require conscious sedation for the procedure. TECHNIQUE: Prior to beginning the procedure, [place] Protocol was used to confirm the patient's identity and planned procedure. Fluoroscopy time has been recorded in the electronic medical record. After obtaining a twister operator image, the right pleural catheter was injected with dilute contrast and multiple fluoroscopic images obtained. The catheter was then removed over a [employer] guidewire. However, the new catheter could not pass over the wire into the pleural space. Given small residual right pleural effusion, new access was not obtained. A sterile dressing was applied to the skin site. Right upper quadrant catheter was injected with dilute contrast and multiple fluoroscopic images obtained. The sutures on the catheter were cut and the catheter was removed without difficulty. ESTIMATED BLOOD LOSS: Minimal. CONDITION: Stable DISCHARGED TO: Recovery and then to Home. FINDINGS: Images from the right chest catheter injection demonstrated improved right pleural effusion, now small. The catheter was removed. Images from the right upper quadrant catheter injection demonstrated resolved right perihepatic fluid collection. The catheter was removed. Procedure Note Edgar Pate MD - 03/21/2024 EXAMINATION: DRAINAGE CATHETER EVALUATION AND REMOVAL HISTORY: 83-year-old woman with history of colon cancer status post ileocolic resection in the and distal transverse colon mass status post near subtotal completion colectomy and small bowel resection on 01/06/2024 completed by perihepatic abscess status post drainage. Evaluate empyema and intra-abdominal abscess. CT chest, abdomen, and pelvis from 03/15/2024 demonstrated decreased small right pleural effusion and resolved perihepatic fluid collection. ATTENDING PRESENCE: Edgar Pate M.D., the attending radiologist, was present from the beginning to the end of the procedure. SEDATION: The patient did not require conscious sedation for the procedure. TECHNIQUE: Prior to beginning the procedure, [place] Protocol was used to confirm the patient's identity and planned procedure. Fluoroscopy time has been recorded in the electronic medical record. After obtaining a twister operator image, the right pleural catheter was injected with dilute contrast and multiple fluoroscopic images obtained. The catheter was then removed over a [employer] guidewire. However, the new catheter could not pass over the wire into the pleural space. Given small residual right pleural effusion, new access was not obtained. A sterile dressing was applied to the skin site. Right upper quadrant catheter was injected with dilute contrast and multiple fluoroscopic images obtained. The sutures on the catheter were cut and the catheter was removed without difficulty. ESTIMATED BLOOD LOSS: Minimal. CONDITION: Stable DISCHARGED TO: Recovery and then to Home. FINDINGS: Images from the right chest catheter injection demonstrated improved right pleural effusion, now small. The catheter was removed. Images from the right upper quadrant catheter injection demonstrated resolved right perihepatic fluid collection. The catheter was removed. IMPRESSION: Resolved right upper quadrant fluid collection and improved small right pleural effusion. Catheters were removed. Dictated by: Yulissa Klein M.D. The radiology attending physician has personally reviewed this study, and had reviewed and/or edited this written report and agrees with it. Electronically signed by: Edgar Pate M.D. [facility] IR PROCEDURES Final Result * eGFR (03/21/2024 4:00 AM POLICY CHECKER) eGFR 66 >=60 mL/min/1. 73 m2 Comment: Interpretive Data Reference Interval Normal >/= 90 mL/min/1.73m2 Mildly decreased* 60 - 89 mL/min/1.73m2 Mildly to moderately decreased 45 - 59 mL/min/1.73m2 Moderately to severely decreased 30 - 44 mL/min/1.73m2 Severely decreased 15 - 29 mL/min/1.73m2 Kidney Failure < 15 mL/min/1.73m2 *Relative to young adult level Estimated glomerular filtration rate is determined by the 2020 CKD-EPI equation recommended by the National Kidney Foundation (A Unifying Approach to GFR Estimation: Recommendations of the NKF-ASK Task Force on Reassessing the Inclusion of Race in Diagnosing Kidney Disease, JASN 202). The CKD-EPI equation should not be used for patients with unstable renal function and has not been validated in children and those over 70. Current interpretive data was last reviewed 2020. Blood 03/21/2024 4:00 AM POLICY CHECKER 03/21/2024 8:29 AM POLICY CHECKER us Notinfile Unknown LAB BLOOD ORDERABLES Final Res ult [facility] Department [place] [address] * (ABNORMAL) Comprehensive metabolic panel (03/21/2024 4:00 AM POLICY CHECKER) Sodium 144 135 - 145 mmol/L Potassium, pl 4.0 3.3 - 4.9 mmol/L [facility] Chloride 122(H) 97 - 110 mmol/L [facility] CO2 17(L) 22 - 32 mmol/L [facility] Anion gap 5 2 - 15 mmol/L [facility] BUN 52(H) 6 - 25 mg/dL [facility] Creatinine 0.88 0.60 - 1.10 mg/dL [facility] Glucose 112 70 - 199 mg/dL [facility] Comment: Interpretive Data Fasting glucose >/= 126 mg/dl is diagnostic for diabetes. Fasting is defined as no caloric intake for at least 8 hours. Fasting glucose between 100 mg/dl to 125 mg/dl is diagnostic of prediabetes. In a patient with classic symptoms of hyperglycemia or hyperglycemic crisis, a random glucose >/= 200 mg/dl is diagnostic for diabetes. In the absence of unequivocal hyperglycemia, results should be confirmed by repeat testing. The classification and Diagnosis of Diabetes Diabetes Care 2021; 46: S19-S40. Current interpretive data was last revised 2022. Calcium 11.2(H) 8.5 - 10.3 mg/dL [facility] Bilirubin, total 0.2 0.1 - 1.2 mg/dL [facility] Protein, pl 7.6 6.5 - 8.5 g/dL [facility] Albumin 2.4(L) 3.5 - 5.0 g/dL [facility] Alk phos 171(H) 40 - 130 Units/L [facility] ALT 72(H) 7 - 45 Units/L [facility] AST 97(H) 10 - 45 Units/L [facility] Blood 03/21/2024 4:00 AM POLICY CHECKER 03/21/2024 7:58 AM POLICY CHECKER us Notinfile Unknown LAB BLOOD ORDERABLES Final Res ult Performing Organization Address [facility] de Phone Number [facility] [place] [address] * C. difficile testing Stool (03/20/2024 7:00 PM POLICY CHECKER) Pathologist [facility] Result Negative Negative Toxin Result Negative Negative [facility] C. diff result Negative, free toxin Negative, free toxin [facility] C. diff interp Negative for toxigenic Clostridioides (Clostridium) difficile. Analysis was performed using a glutamate dehydrogenase antigen detection assay combined with a C. difficile toxin detection assay. [facility] Stool 03/20/2024 7:00 PM POLICY CHECKER 03/20/2024 8:20 PM POLICY CHECKER us Donnie Erazo MD LAB MICROBIOLOGY - GENERAL ORDER [place] Final Result Performing Organization Address [facility] de Phone Number [facility] Department [place] [address] * Phosphorus, serum (03/20/2024 4:00 AM POLICY CHECKER) Pathologist [facility] Phosphorus, sr 2.9 2.3 - 4.5 mg/dL Blood 03/20/2024 4:0 0 AM POLICY CHECKER 03/20/2024 7:00 AM POLICY CHECKER us Donnie Erazo MD LAB BLOOD ORDERABLES Final Resul t Performing Organization Address [facility]/ZIP Co de Phone Number [facility] Department [place] [address] * eGFR (03/20/2024 4:00 AM POLICY CHECKER) Pathologist [facility] eGFR 66 >=60 mL/min/1. 73 m2 Comment: Interpretive Data Reference Interval Normal >/= 90 mL/min/1.73m2 Mildly decreased* 60 - 89 mL/min/1.73m2 Mildly to moderately decreased 45 - 59 mL/min/1.73m2 Moderately to severely decreased 30 - 44 mL/min/1.73m2 Severely decreased 15 - 29 mL/min/1.73m2 Kidney Failure < 15 mL/min/1.73m2 *Relative to young adult level Estimated glomerular filtration rate is determined by the 2020 CKD-EPI equation recommended by the National Kidney Foundation (A Unifying Approach to GFR Estimation: Recommendations of the NKF-ASK Task Force on Reassessing the Inclusion of Race in Diagnosing Kidney Disease, JASN 2020). The CKD-EPI equation should not be used for patients with unstable renal function and has not been validated in children and those over 70. Current interpretive data was last reviewed 2020. Blood 03/20/2024 4:00 AM POLICY CHECKER 03/20/2024 7:08 AM POLICY CHECKER us Donnie Erazo MD LAB BLOOD ORDERABLES Final Resul t [facility] Department [place] [address] * Differential, auto (03/20/2024 4:00 AM POLICY CHECKER) Pathologist [facility] Neutrophil abs 2.0 1.5 - 6.5 K/cumm Imm gran abs 0.0 0.0 - 0.1 K/cumm [facility] Lymphocyte abs 1.9 0.8 - 3.3 K/cumm [facility] Monocyte abs 0.7 0.2 - 0.8 K/cumm [facility] Eosinophil abs 0.2 0.0 - 0.5 K/cumm [facility] Basophil abs 0.0 0.0 - 0.1 K/cumm [facility] Neutrophil pct 41.8 % [facility] Comment: Interpretive Data Percent cell count reference ranges are not reported, since discordance with absolute values may lead to misinterpretation of CBC data. Current Interpretive Data was last revised on 2017. Imm gran pct 0.8 % [facility] Comment: Interpretive Data Percent cell count reference ranges are not reported, since discordance with absolute values may lead to misinterpretation of CBC data. Current Interpretive Data was last revised on 2017. Lymphocyte pct 38.3 % [facility] Comment: Interpretive Data Percent cell count reference ranges are not reported, since discordance with absolute values may lead to misinterpretation of CBC data. Current Interpretive Data was last revised on 2017. Monocyte pct 13.8 % [facility] Comment: Interpretive Data Percent cell count reference ranges are not reported, since discordance with absolute values may lead to misinterpretation of CBC data. Current Interpretive Data was last revised on 2017. Eosinophil pct 4.9 % [facility] Comment: Interpretive Data Percent cell count reference ranges are not reported, since discordance with absolute values may lead to misinterpretation of CBC data. Current Interpretive Data was last revised on 2017. Basophil pct 0.4 % [facility] Comment: Interpretive Data Percent cell count reference ranges are not reported, since discordance with absolute values may lead to misinterpretation of CBC data. Current Interpretive Data was last revised on 2017. Blood 03/20/2024 4:00 AM POLICY CHECKER 03/20/2024 6:59 AM POLICY CHECKER us Donnie Erazo MD LAB BLOOD ORDERABLES Final Resul t [facility] Department of Laboratories [place], [place] [id number] * (ABNORMAL) CBC with auto differential (03/20/2024 4:00 AM POLICY CHECKER) WBC 4.9 3.8 - 9.9 K/cumm Hgb 7.6(L) 11.9 - 15.5 g/dL [facility] Hct 24.5(L) 35.6 - 45.5 % [facility] Plt 105(L) 150 - 400 K/cumm [facility] MPV 10.2 9.1 - 12.3 fL [facility] RBC 2.76(L) 3.90 - 5.20 M/cumm [facility] MCV 88.8 81.3 - 96.4 fL [facility] MCH 27.5 27.1 - 33.3 pg [facility] MCHC 31.0(L) 32.3 - 35.7 g/dL [facility] RDW CV 23.6(H) 11.1 - 14.9 % [facility] RDW SD 74.2(H) 35.7 - 48.1 fL [facility] NRBC abs 0.02(H) 0.00 - 0.01 K/cumm [facility] Blood 03/20/2024 4:00 AM POLICY CHECKER 03/20/2024 6:59 AM POLICY CHECKER us Donnie Erazo MD LAB BLOOD ORDERABLES Final Resul t [facility] Department [place] [address] * Triglycerides (03/20/2024 4:00 AM POLICY CHECKER) Triglycerides 37 <=149 mg/dL Comment: Interpretive Data Ages < or = 9 years Acceptable: <75 mg/dL Borderline high: 75-99 mg/dL High: >or= 100 mg/dL Ages 10 to 20 years Acceptable: <90 mg/dL Borderline high: 90-129 mg/dL High: >or= 130 mg/dL Ages > or = 20 years Desirable: <150 mg/dL Borderline high: 150-199 mg/dL High: 200-499 mg/dL Very high: >or= 499 mg/dL Literature References: 1. Expert Panel on Integrated Guidelines for Cardiovascular Health and Risk Reduction in Children and Adolescents. Pediatrics 2011;128:S213 2. NCEP Expert Panel. Circulation 2004;110:227 Current Interpretive Data was last revised on 2017. Blood 03/20/2024 4:00 AM POLICY CHECKER 03/20/2024 6:59 AM POLICY CHECKER us Donnie Erazo MD LAB BLOOD ORDERABLES Final Resul t Performing Organization Address City/[facility] Co de Phone Number [facility] [place] [address] * Magnesium (03/20/2024 4:00 AM POLICY CHECKER) Pathologist [facility] Magnesium 2.2 1.4 - 2.5 mg/dL Blood 03/20/2024 4:00 AM POLICY CHECKER 03/20/2024 6:59 AM POLICY CHECKER Donnie Erazo MD LAB BLOOD ORDERABLES Final Resul t Performing Organization Address [facility] de Phone Number [facility] Department [place] [address] * (ABNORMAL) Comprehensive metabolic panel (03/20/2024 4:00 AM POLICY CHECKER) [facility] Sodium 143 135 - 145 mmol/L Potassium, pl 4.4 3.3 - 4.9 mmol/L [facility] Chloride 126(H) 97 - 110 mmol/L [facility] CO2 14(L) 22 - 32 mmol/L [facility] Anion gap 3 2 - 15 mmol/L [facility] BUN 55(H) 6 - 25 mg/dL [facility] Creatinine 0.88 0.60 - 1.10 mg/dL [facility] Glucose 77 70 - 199 mg/dL [facility] Comment: Interpretive Data Fasting glucose >/= 126 mg/dl is diagnostic for diabetes. Fasting is defined as no caloric intake for at least 8 hours. Fasting glucose between 100 mg/dl to 125 mg/dl is diagnostic of prediabetes. In a patient with classic symptoms of hyperglycemia or hyperglycemic crisis, a random glucose >/= 200 mg/dl is diagnostic for diabetes. In the absence of unequivocal hyperglycemia, results should be confirmed by repeat testing. The classification and Diagnosis of Diabetes Diabetes Care 202; 46: S19-S40. Current interpretive data was last revised 2022. Calcium 11.7(H) 8.5 - 10.3 mg/dL [facility] Bilirubin, total 0.3 0.1 - 1.2 mg/dL [facility] Protein, pl 7.6 6.5 - 8.5 g/dL [facility] Albumin 2.5(L) 3.5 - 5.0 g/dL [facility] Alk phos 154(H) 40 - 130 Units/L [facility] ALT 46(H) 7 - 45 Units/L [facility] AST 61(H) 10 - 45 Units/L [facility] Blood 03/20/2024 4:00 AM POLICY CHECKER 03/20/2024 6:59 AM POLICY CHECKER us Donnie Erazo MD LAB BLOOD ORDERABLES Final Resul t [facility] Department [place] [address] * eGFR (03/19/2024 4:00 AM POLICY CHECKER) eGFR 63 >=60 mL/min/1. 73 m2 Comment: Interpretive Data Reference Interval Normal >/= 90 mL/min/1.73m2 Mildly decreased* 60 - 89 mL/min/1.73m2 Mildly to moderately decreased 45 - 59 mL/min/1.73m2 Moderately to severely decreased 30 - 44 mL/min/1.73m2 Severely decreased 15 - 29 mL/min/1.73m2 Kidney Failure < 15 mL/min/1.73m2 *Relative to young adult level Estimated glomerular filtration rate is determined by the 2020 CKD-EPI equation recommended by the National Kidney Foundation (A Unifying Approach to GFR Estimation: Recommendations of the NKF-ASK Task Force on Reassessing the Inclusion of Race in Diagnosing Kidney Disease, JASN 202). The CKD-EPI equation should not be used for patients with unstable renal function and has not been validated in children and those over 70. Current interpretive data was last reviewed 2020. Blood 03/19/2024 4:00 AM POLICY CHECKER 03/19/2024 5:32 AM POLICY CHECKER us Donnie Erazo MD LAB BLOOD ORDERABLES Final Resul t [facility] [place] [address] * (ABNORMAL) Comprehensive metabolic panel (03/19/2024 4:00 AM POLICY CHECKER) Sodium 145 135 - 145 mmol/L Potassium, pl 4.3 3.3 - 4.9 mmol/L [facility] Chloride 126(H) 97 - 110 mmol/L [facility] CO2 14(L) 22 - 32 mmol/L [facility] Anion gap 5 2 - 15 mmol/L [facility] BUN 55(H) 6 - 25 mg/dL [facility] Creatinine 0.91 0.60 - 1.10 mg/dL [facility] Glucose 110 70 - 199 mg/dL [facility] Comment: Interpretive Data Fasting glucose >/= 126 mg/dl is diagnostic for diabetes. Fasting is defined as no caloric intake for at least 8 hours. Fasting glucose between 100 mg/dl to 125 mg/dl is diagnostic of prediabetes. In a patient with classic symptoms of hyperglycemia or hyperglycemic crisis, a random glucose >/= 200 mg/dl is diagnostic for diabetes. In the absence of unequivocal hyperglycemia, results should be confirmed by repeat testing. The classification and Diagnosis of Diabetes Diabetes Care 202; 46: S19-S40. Current interpretive data was last revised 2022. Calcium 11.8(H) 8.5 - 10.3 mg/dL [facility] Bilirubin, total 0.3 0.1 - 1.2 mg/dL [facility] Protein, pl 7.6 6.5 - 8.5 g/dL [facility] Albumin 2.6(L) 3.5 - 5.0 g/dL [facility] Alk phos 150(H) 40 - 130 Units/L [facility] ALT 38 7 - 45 Units/L [facility] AST 40 10 - 45 Units/L [facility] Blood 03/19/2024 4:00 AM POLICY CHECKER 03/19/2024 5:30 AM POLICY CHECKER Donnie Erazo MD LAB BLOOD ORDERABLES Final Resul t [facility] [place] [address] * (ABNORMAL) Phosphorus (03/18/2024 4:00 AM POLICY CHECKER) Phosphorus, pl 6.4(H) 2.3 - 4.5 mg/dL Blood 03/18/2024 4:00 AM POLICY CHECKER 03/18/2024 5:31 AM POLICY CHECKER Narrative [facility] 03/18/2024 6:21 AM POLICY CHECKER [id number] Donnie Erazo MD LAB BLOOD ORDERABLES Final Resul t Performing Organization Address [facility] de Phone Number [facility] [facility] [place] [address] * eGFR (03/16/2024 11:51 AM POLICY CHECKER) eGFR 76 >=60 mL/min/1. 73 m2 Comment: Interpretive Data Reference Interval Normal >/= 90 mL/min/1.73m2 Mildly decreased* 60 - 89 mL/min/1.73m2 Mildly to moderately decreased 45 - 59 mL/min/1.73m2 Moderately to severely decreased 30 - 44 mL/min/1.73m2 Severely decreased 15 - 29 mL/min/1.73m2 Kidney Failure < 15 mL/min/1.73m2 *Relative to young adult level Estimated glomerular filtration rate is determined by the 2020 CKD-EPI equation recommended by the National Kidney Foundation (A Unifying Approach to GFR Estimation: Recommendations of the NKF-ASK Task Force on Reassessing the Inclusion of Race in Diagnosing Kidney Disease, JASN 2020). The CKD-EPI equation should not be used for patients with unstable renal function and has not been validated in children and those over 70. Current interpretive data was last reviewed 2020. Blood 03/16/2024 11:5 1 AM POLICY CHECKER 03/16/2024 12:22 PM POLICY CHECKER us Donnie Erazo MD LAB BLOOD ORDERABLES Final Resul t [facility] [place] [address] * Differential, auto (03/16/2024 11:51 AM POLICY CHECKER) Neutrophil abs 1.8 1.5 - 6.5 K/cumm Imm gran abs 0.0 0.0 - 0.1 K/cumm [facility] Lymphocyte abs 1.9 0.8 - 3.3 K/cumm [facility] Monocyte abs 0.7 0.2 - 0.8 K/cumm [facility] Eosinophil abs 0.2 0.0 - 0.5 K/cumm [facility] Basophil abs 0.0 0.0 - 0.1 K/cumm [facility] Neutrophil pct 38.6 % [facility] Comment: Interpretive Data Percent cell count reference ranges are not reported, since discordance with absolute values may lead to misinterpretation of CBC data. Current Interpretive Data was last revised on 2017. Imm gran pct 0.4 % [facility] Comment: Interpretive Data Percent cell count reference ranges are not reported, since discordance with absolute values may lead to misinterpretation of CBC data. Current Interpretive Data was last revised on 2017. Lymphocyte pct 41.2 % [facility] Comment: Interpretive Data Percent cell count reference ranges are not reported, since discordance with absolute values may lead to misinterpretation of CBC data. Current Interpretive Data was last revised on 2017. Monocyte pct 14.3 % [facility] Comment: Interpretive Data Percent cell count reference ranges are not reported, since discordance with absolute values may lead to misinterpretation of CBC data. Current Interpretive Data was last revised on 2017. Eosinophil pct 5.1 % [facility] Comment: Interpretive Data Percent cell count reference ranges are not reported, since discordance with absolute values may lead to misinterpretation of CBC data. Current Interpretive Data was last revised on 2017. Basophil pct 0.4 % [facility] Comment: Interpretive Data Percent cell count reference ranges are not reported, since discordance with absolute values may lead to misinterpretation of CBC data. Current Interpretive Data was last revised on 2017. Blood 03/16/2024 11:5 1 AM POLICY CHECKER 03/16/2024 12:02 PM POLICY CHECKER Donnie Erazo MD LAB BLOOD ORDERABLES Final Resul t Performing Organization Address City/[facility]/ZIP Co de Phone Number [facility] Department [place] [address] * (ABNORMAL) CBC with auto differential (03/16/2024 11:51 AM POLICY CHECKER) WBC 4.7 3.8 - 9.9 K/cumm Hgb 9.0(L) 11.9 - 15.5 g/dL [facility] Hct 30.4(L) 35.6 - 45.5 % [facility] Plt 124(L) 150 - 400 K/cumm [facility] MPV 11.4 9.1 - 12.3 fL [facility] RBC 3.36(L) 3.90 - 5.20 M/cumm [facility] MCV 90.5 81.3 - 96.4 fL [facility] MCH 26.8(L) 27.1 - 33.3 pg [facility] MCHC 29.6(L) 32.3 - 35.7 g/dL [facility] RDW CV 21.7(H) 11.1 - 14.9 % [facility] RDW SD 68.5(H) 35.7 - 48.1 fL [facility] NRBC abs 0.00 0.00 - 0.01 K/cumm [facility] Blood 03/16/2024 11:5 1 AM POLICY CHECKER 03/16/2024 12:02 PM POLICY CHECKER us Donnie Erazo MD LAB BLOOD ORDERABLES Final Resul t Performing Organization Address [facility]/ZIP Co de Phone Number [facility] Department [place] [address] * (ABNORMAL) Comprehensive metabolic panel (03/16/2024 11:51 AM POLICY CHECKER) Sodium 144 135 - 145 mmol/L Potassium, pl 4.1 3.3 - 4.9 mmol/L [facility] Chloride 127(H) 97 - 110 mmol/L [facility] CO2 13(L) 22 - 32 mmol/L [facility] Anion gap 4 2 - 15 mmol/L [facility] BUN 55(H) 6 - 25 mg/dL [facility] Creatinine 0.78 0.60 - 1.10 mg/dL [facility] Glucose 110 70 - 199 mg/dL [facility] Comment: Interpretive Data Fasting glucose >/= 126 mg/dl is diagnostic for diabetes. Fasting is defined as no caloric intake for at least 8 hours. Fasting glucose between 100 mg/dl to 125 mg/dl is diagnostic of prediabetes. In a patient with classic symptoms of hyperglycemia or hyperglycemic crisis, a random glucose >/= 200 mg/dl is diagnostic for diabetes. In the absence of unequivocal hyperglycemia, results should be confirmed by repeat testing. The classification and Diagnosis of Diabetes Diabetes Care 2021; 46: S19-S40. Current interpretive data was last revised 2022. Calcium 11.3(H) 8.5 - 10.3 mg/dL [facility] Bilirubin, total 0.2 0.1 - 1.2 mg/dL [facility] Protein, pl 7.6 6.5 - 8.5 g/dL [facility] Albumin 2.3(L) 3.5 - 5.0 g/dL [facility] Alk phos 140(H) 40 - 130 Units/L [facility] ALT 30 7 - 45 Units/L [facility] AST 35 10 - 45 Units/L [facility] Blood 03/16/2024 11:5 1 AM POLICY CHECKER 03/16/2024 12:02 PM POLICY CHECKER us Donnie Erazo MD LAB BLOOD ORDERABLES Final Resul t [facility] [place] [address] * Mislabeled Test (03/15/2024 4:30 PM POLICY CHECKER) Location Other location Reason Specimen and Requistion labeling differ [facility] Mislabel resolution Testing canceled [facility] Blood 03/15/2024 4:30 PM POLICY CHECKER 03/15/2024 7:22 PM POLICY CHECKER us Donnie Erazo MD LAB BLOOD ORDERABLES Final Resul t [facility] One [facility] [place] [address] * CT Chest Abdomen Pelvis W Contrast (03/15/2024 3:00 PM POLICY CHECKER) Anatomical Region Laterality Modality Body N/A Computed Tomogra phy 03/15/2024 3:17 PM POLICY CHECKER Impressions 03/15/2024 3:17 PM POLICY CHECKER 1. Right-sided chest tube with stable in size small right pleural effusion with decreasing pleural thickening and enhancement. 2. Persistent collapse of the fluid collection in the anterior right perihepatic space which tracks down into the right lower quadrant anastomosis with approach percutaneous drainage catheter in place. 3. Previously noted left renal lesion is not well seen on current examination. 5. Interval decrease to mild biliary duct dilation. 6. Multiple soft tissue nodules in the anterior abdominal wall which may represent injection hematomas in the setting of unchanged diffuse anasarca. Electronically signed by: Abi Hernandez M.D. Narrative 03/15/2024 3:17 PM POLICY CHECKER EXAMINATION: CT CHEST ABDOMEN PELVIS W CONTRAST HISTORY: 83-year-old woman with history of colon cancer status post ileocolic resection in the 1980s and distal transverse colon mass status post near subtotal completion colectomy and small bowel resection on 01/06/2024 completed by perihepatic abscess status post drainage. Evaluate empyema and intra-abdominal abscess.. TECHNIQUE: Transaxial computed tomographic images of the chest, abdomen and pelvis were obtained with intravenous contrast according to the standard protocol after the uneventful administration of 69 ml of Opti-Ray 350 contrast. COMPARISON: 03/07/2024 FINDINGS: CHEST: Tracheostomy tube terminates within the trachea. Expiratory phase of imaging. No consolidation. No pneumothorax or pleural effusion. Persistent percutaneous pigtail thoracostomy tube within the right pleural space with persistent small volume pleural effusion without significant pleural thickening or enhancement. Decreasing atelectasis in the right lower lung. Heart size is enlarged without pericardial effusion. Aorta and main pulmonary artery normal in caliber. Left-sided 3 vessel aortic arch. Esophagus is mildly patulous with air. A peripherally inserted right upper extremity central venous catheter terminating in the right atrium. Severe coronary artery calcifications. Left-sided 3 vessel aortic arch. No thoracic lymphadenopathy. ABDOMEN/PELVIS: A percutaneous pigtail catheter terminates adjacent to liver and the sub-diaphragmatic space with unchanged small volume perihepatic fluid which extends down into the right lower quadrant near the anastomosis. Mild intrahepatic and extra hepatic biliary ductal dilation which is decreased from prior examination likely due to advanced age. Portal, splenic and superior mesenteric veins are patent. Spleen, adrenal glands, pancreas, stomach and duodenum are normal. Kidneys enhance symmetrically without hydronephrosis or nephrolithiasis. Known left renal lesion is not well seen on current examination. Numerous vascular calcifications. Unchanged parenchymal atrophy of the left kidney. Urinary bladder is distended. Uterus is absent. No suspicious adnexal masses. Postsurgical changes of near complete colectomy with anastomosis of the right lower quadrant. No evidence of bowel obstruction. No pneumoperitoneum. Diffuse mesenteric fat stranding. No new fluid collections. Abdominal aorta is normal caliber with moderate atherosclerotic disease. No abdominal or pelvic lymphadenopathy. Diffuse body wall edema is unchanged. Multiple soft tissue nodules in the anterior abdominal wall which may represent injection hematomas. 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 Mild wedging of multiple thoracic and lumbar type vertebral bodies unchanged. No suspicious osseous lesions. Procedure Note Abi Hernandez MD - 03/15/2024 EXAMINATION: CT CHEST ABDOMEN PELVIS W CONTRAST HISTORY: 83-year-old woman with history of colon cancer status post ileocolic resection in the 1980s and distal transverse colon mass status post near subtotal completion colectomy and small bowel resection on 01/06/2024 completed by perihepatic abscess status post drainage. Evaluate empyema and intra-abdominal abscess.. TECHNIQUE: Transaxial computed tomographic images of the chest, abdomen and pelvis were obtained with intravenous contrast according to the standard protocol after the uneventful administration of 69 ml of Opti-Ray 350 contrast. COMPARISON: 03/07/2024 FINDINGS: CHEST: Tracheostomy tube terminates within the trachea. Expiratory phase of imaging. No consolidation. No pneumothorax or pleural effusion. Persistent percutaneous pigtail thoracostomy tube within the right pleural space with persistent small volume pleural effusion without significant pleural thickening or enhancement. Decreasing atelectasis in the right lower lung. Heart size is enlarged without pericardial effusion. Aorta and main pulmonary artery normal in caliber. Left-sided 3 vessel aortic arch. Esophagus is mildly patulous with air. A peripherally inserted right upper extremity central venous catheter terminating in the right atrium. Severe coronary artery calcifications. Left-sided 3 vessel aortic arch. No thoracic lymphadenopathy. ABDOMEN/PELVIS: A percutaneous pigtail catheter terminates adjacent to liver and the sub-diaphragmatic space with unchanged small volume perihepatic fluid which extends down into the right lower quadrant near the anastomosis. Mild intrahepatic and extra hepatic biliary ductal dilation which is decreased from prior examination likely due to advanced age. Portal, splenic and superior mesenteric veins are patent. Spleen, adrenal glands, pancreas, stomach and duodenum are normal. Kidneys enhance symmetrically without hydronephrosis or nephrolithiasis. Known left renal lesion is not well seen on current examination. Numerous vascular calcifications. Unchanged parenchymal atrophy of the left kidney. Urinary bladder is distended. Uterus is absent. No suspicious adnexal masses. Postsurgical changes of near complete colectomy with anastomosis of the right lower quadrant. No evidence of bowel obstruction. No pneumoperitoneum. Diffuse mesenteric fat stranding. No new fluid collections. Abdominal aorta is normal caliber with moderate atherosclerotic disease. No abdominal or pelvic lymphadenopathy. Diffuse body wall edema is unchanged. Multiple soft tissue nodules in the anterior abdominal wall which may represent injection hematomas. 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 Mild wedging of multiple thoracic and lumbar type vertebral bodies unchanged. No suspicious osseous lesions. IMPRESSION: 1. Right-sided chest tube with stable in size small right pleural effusion with decreasing pleural thickening and enhancement. 2. Persistent collapse of the fluid collection in the anterior right perihepatic space which tracks down into the right lower quadrant anastomosis with approach percutaneous drainage catheter in place. 3. Previously noted left renal lesion is not well seen on current examination. 5. Interval decrease to mild biliary duct dilation. 6. Multiple soft tissue nodules in the anterior abdominal wall which may represent injection hematomas in the setting of unchanged diffuse anasarca. Electronically signed by: Abi Hernandez M.D. us Manuel Brock MD PhD IMG CT PROCEDURES Fin al Result * eGFR (03/15/2024 4:00 AM POLICY CHECKER) eGFR 73 >=60 mL/min/1. 73 m2 Comment: Interpretive Data Reference Interval Normal >/= 90 mL/min/1.73m2 Mildly decreased* 60 - 89 mL/min/1.73m2 Mildly to moderately decreased 45 - 59 mL/min/1.73m2 Moderately to severely decreased 30 - 44 mL/min/1.73m2 Severely decreased 15 - 29 mL/min/1.73m2 Kidney Failure < 15 mL/min/1.73m2 *Relative to young adult level Estimated glomerular filtration rate is determined by the 2020 CKD-EPI equation recommended by the National Kidney Foundation (A Unifying Approach to GFR Estimation: Recommendations of the NKF-ASK Task Force on Reassessing the Inclusion of Race in Diagnosing Kidney Disease, JASN 2020). The CKD-EPI equation should not be used for patients with unstable renal function and has not been validated in children and those over 70. Current interpretive data was last reviewed 2020. Blood 03/15/2024 4:00 AM POLICY CHECKER 03/15/2024 5:19 AM POLICY CHECKER us Donnie Erazo MD LAB BLOOD ORDERABLES Final Resul t [facility] Department of Laboratories [place], [place] [id number] * Phosphorus (03/15/2024 4:00 AM POLICY CHECKER) Phosphorus, pl 2.9 2.3 - 4.5 mg/dL Blood 03/15/2024 4:00 AM POLICY CHECKER 03/15/2024 5:07 AM POLICY CHECKER Donnie Erazo MD LAB BLOOD ORDERABLES Final Resul t Performing Organization Address City/[facility]/ZIP Co de Phone Number [facility] [place] [address] * Magnesium (03/15/2024 4:00 AM POLICY CHECKER) [facility] Magnesium 2.0 1.4 - 2.5 mg/dL Blood 03/15/2024 4:00 AM POLICY CHECKER 03/15/2024 5:07 AM POLICY CHECKER Donnie Erazo MD LAB BLOOD ORDERABLES Final Resul t Performing Organization Address [facility] de Phone Number [facility] Department [place] [address] * (ABNORMAL) Comprehensive metabolic panel (03/15/2024 4:00 AM POLICY CHECKER) [facility] Sodium 141 135 - 145 mmol/L Potassium, pl 4.2 3.3 - 4.9 mmol/L [facility] Chloride 124(H) 97 - 110 mmol/L [facility] CO2 13(L) 22 - 32 mmol/L [facility] Anion gap 4 2 - 15 mmol/L [facility] BUN 52(H) 6 - 25 mg/dL [facility] Creatinine 0.81 0.60 - 1.10 mg/dL [facility] Glucose 106 70 - 199 mg/dL [facility] Comment: Interpretive Data Fasting glucose >/= 126 mg/dl is diagnostic for diabetes. Fasting is defined as no caloric intake for at least 8 hours. Fasting glucose between 100 mg/dl to 125 mg/dl is diagnostic of prediabetes. In a patient with classic symptoms of hyperglycemia or hyperglycemic crisis, a random glucose >/= 200 mg/dl is diagnostic for diabetes. In the absence of unequivocal hyperglycemia, results should be confirmed by repeat testing. The classification and Diagnosis of Diabetes Diabetes Care 2021; 46: S19-S40. Current interpretive data was last revised 2022. Calcium 11.5(H) 8.5 - 10.3 mg/dL [facility] Bilirubin, total 0.2 0.1 - 1.2 mg/dL [facility] Protein, pl 7.4 6.5 - 8.5 g/dL [facility] Albumin 2.2(L) 3.5 - 5.0 g/dL [facility] Alk phos 131(H) 40 - 130 Units/L [facility] ALT 32 7 - 45 Units/L [facility] AST 46(H) 10 - 45 Units/L [facility] Blood 03/15/2024 4:00 AM POLICY CHECKER 03/15/2024 5:07 AM POLICY CHECKER us Donnie Erazo MD LAB BLOOD ORDERABLES Final Resul t [facility] [place] [address] * eGFR (03/14/2024 4:16 AM POLICY CHECKER) eGFR 75 >=60 mL/min/1. 73 m2 Comment: Interpretive Data Reference Interval Normal >/= 90 mL/min/1.73m2 Mildly decreased* 60 - 89 mL/min/1.73m2 Mildly to moderately decreased 45 - 59 mL/min/1.73m2 Moderately to severely decreased 30 - 44 mL/min/1.73m2 Severely decreased 15 - 29 mL/min/1.73m2 Kidney Failure < 15 mL/min/1.73m2 *Relative to young adult level Estimated glomerular filtration rate is determined by the 2020 CKD-EPI equation recommended by the National Kidney Foundation (A Unifying Approach to GFR Estimation: Recommendations of the NKF-ASK Task Force on Reassessing the Inclusion of Race in Diagnosing Kidney Disease, JASN 202). The CKD-EPI equation should not be used for patients with unstable renal function and has not been validated in children and those over 70. Current interpretive data was last reviewed 2020. Blood 03/14/2024 4:16 AM POLICY CHECKER 03/14/2024 5:01 AM POLICY CHECKER us Donnie Erazo MD LAB BLOOD ORDERABLES Final Resul t Performing Organization Address City/[facility] Co de Phone Number [facility] [place] [address] * Phosphorus (03/14/2024 4:16 AM POLICY CHECKER) [facility] Phosphorus, pl 2.6 2.3 - 4.5 mg/dL Blood 03/14/2024 4:16 AM POLICY CHECKER 03/14/2024 4:47 AM POLICY CHECKER Donnie Erazo MD LAB BLOOD ORDERABLES Final Resul t Performing Organization Address [facility] de Phone Number [facility] [place] [address] * Magnesium (03/14/2024 4:16 AM POLICY CHECKER) [facility] Magnesium 2.0 1.4 - 2.5 mg/dL Blood 03/14/2024 4:16 AM POLICY CHECKER 03/14/2024 4:47 AM POLICY CHECKER Donnie Erazo MD LAB BLOOD ORDERABLES Final Resul t Performing Organization Address [facility] de Phone Number [facility] [place] [address] * (ABNORMAL) Comprehensive metabolic panel (03/14/2024 4:16 AM POLICY CHECKER) [facility] Sodium 139 135 - 145 mmol/L Potassium, pl 3.8 3.3 - 4.9 mmol/L [facility] Chloride 123(H) 97 - 110 mmol/L [facility] CO2 14(L) 22 - 32 mmol/L [facility] Anion gap 2 2 - 15 mmol/L [facility] BUN 41(H) 6 - 25 mg/dL [facility] Creatinine 0.79 0.60 - 1.10 mg/dL [facility] Glucose 112 70 - 199 mg/dL [facility] Comment: Interpretive Data Fasting glucose >/= 126 mg/dl is diagnostic for diabetes. Fasting is defined as no caloric intake for at least 8 hours. Fasting glucose between 100 mg/dl to 125 mg/dl is diagnostic of prediabetes. In a patient with classic symptoms of hyperglycemia or hyperglycemic crisis, a random glucose >/= 200 mg/dl is diagnostic for diabetes. In the absence of unequivocal hyperglycemia, results should be confirmed by repeat testing. The classification and Diagnosis of Diabetes Diabetes Care 2021; 46: S19-S40. Current interpretive data was last revised 2022. Calcium 10.6(H) 8.5 - 10.3 mg/dL [facility] Bilirubin, total 0.2 0.1 - 1.2 mg/dL [facility] Protein, pl 6.9 6.5 - 8.5 g/dL [facility] Albumin 2.1(L) 3.5 - 5.0 g/dL [facility] Alk phos 125 40 - 130 Units/L [facility] ALT 29 7 - 45 Units/L [facility] AST 46(H) 10 - 45 Units/L [facility] Blood 03/14/2024 4:16 AM POLICY CHECKER 03/14/2024 4:47 AM POLICY CHECKER us Donnie Erazo MD LAB BLOOD ORDERABLES Final Resul t [facility] Department [place] [address] * eGFR (03/13/2024 4:20 AM POLICY CHECKER) eGFR 84 >=60 mL/min/1. 73 m2 Comment: Interpretive Data Reference Interval Normal >/= 90 mL/min/1.73m2 Mildly decreased* 60 - 89 mL/min/1.73m2 Mildly to moderately decreased 45 - 59 mL/min/1.73m2 Moderately to severely decreased 30 - 44 mL/min/1.73m2 Severely decreased 15 - 29 mL/min/1.73m2 Kidney Failure < 15 mL/min/1.73m2 *Relative to young adult level Estimated glomerular filtration rate is determined by the 2020 CKD-EPI equation recommended by the National Kidney Foundation (A Unifying Approach to GFR Estimation: Recommendations of the NKF-ASK Task Force on Reassessing the Inclusion of Race in Diagnosing Kidney Disease, JASN 2020). The CKD-EPI equation should not be used for patients with unstable renal function and has not been validated in children and those over 70. Current interpretive data was last reviewed 2020. Blood 03/13/2024 4:20 AM POLICY CHECKER 03/13/2024 6:44 AM POLICY CHECKER Donnie Erazo MD LAB BLOOD ORDERABLES Final Resul t Performing Organization Address [facility] de Phone Number [facility] Department [place] [address] * (ABNORMAL) CBC with auto differential (03/13/2024 4:20 AM POLICY CHECKER) WBC 3.5(L) 3.8 - 9.9 K/cumm Hgb 7.6(L) 11.9 - 15.5 g/dL [facility] Hct 25.6(L) 35.6 - 45.5 % [facility] Plt 139(L) 150 - 400 K/cumm [facility] MPV 10.5 9.1 - 12.3 fL [facility] RBC 2.85(L) 3.90 - 5.20 M/cumm [facility] MCV 89.8 81.3 - 96.4 fL [facility] MCH 26.7(L) 27.1 - 33.3 pg [facility] MCHC 29.7(L) 32.3 - 35.7 g/dL [facility] RDW CV 20.7(H) 11.1 - 14.9 % [facility] RDW SD 66.1(H) 35.7 - 48.1 fL [facility] NRBC abs 0.00 0.00 - 0.01 K/cumm [facility] Blood 03/13/2024 4:20 AM POLICY CHECKER 03/13/2024 6:21 AM POLICY CHECKER Donnie Erazo MD LAB BLOOD ORDERABLES Final Resul t Performing Organization Address City/[facility] Co de Phone Number [facility] [place] [address] * Manual Differential (03/13/2024 4:20 AM POLICY CHECKER) Differential Manual Cells Counted 115 [facility] Neutrophil abs 2.0 1.5 - 6.5 K/cumm [facility] Imm gran abs 0.0 0.0 - 0.1 K/cumm [facility] Lymphocyte abs 1.2 0.8 - 3.3 K/cumm [facility] Monocyte abs 0.2 0.2 - 0.8 K/cumm [facility] Eosinophil abs 0.2 0.0 - 0.5 K/cumm [facility] Neutrophil pct 55.7 % [facility] Comment: Interpretive Data Percent cell count reference ranges are not reported, since discordance with absolute values may lead to misinterpretation of CBC data. Current Interpretive Data was last revised on 2017. Lymphocyte pct 33.9 % [facility] [facility] Comment: Interpretive Data Percent cell count reference ranges are not reported, since discordance with absolute values may lead to misinterpretation of CBC data. Current Interpretive Data was last revised on 2017. Monocyte pct 5.2 % [facility] Comment: Interpretive Data Percent cell count reference ranges are not reported, since discordance with absolute values may lead to misinterpretation of CBC data. Current Interpretive Data was last revised on 2017. Eosinophil pct 4.3 % [facility] Comment: Interpretive Data Percent cell count reference ranges are not reported, since discordance with absolute values may lead to misinterpretation of CBC data. Current Interpretive Data was last revised on 2017. Myelocyte pct 0.9 % [facility] Blood 03/13/2024 4:20 AM POLICY CHECKER 03/13/2024 6:48 AM POLICY CHECKER us Donnie Erazo MD LAB BLOOD ORDERABLES Final Resul t [facility] [place] [address] * Phosphorus (03/13/2024 4:20 AM POLICY CHECKER) [facility] Phosphorus, pl 2.3 2.3 - 4.5 mg/dL Blood 03/13/2024 4:20 AM POLICY CHECKER 03/13/2024 6:21 AM POLICY CHECKER Donnie Erazo MD LAB BLOOD ORDERABLES Final Resul t Performing Organization Address City/[facility] de Phone Number [facility] [place] [address] * Magnesium (03/13/2024 4:20 AM POLICY CHECKER) [facility] Magnesium 2.1 1.4 - 2.5 mg/dL Blood 03/13/2024 4:20 AM POLICY CHECKER 03/13/2024 6:21 AM POLICY CHECKER Donnie Erazo MD LAB BLOOD ORDERABLES Final Resul t Performing Organization Address [facility] de Phone Number [facility] Department [place] [address] * (ABNORMAL) Comprehensive metabolic panel (03/13/2024 4:20 AM POLICY CHECKER) [facility] Sodium 140 135 - 145 mmol/L Potassium, pl 3.4 3.3 - 4.9 mmol/L [facility] Chloride 121(H) 97 - 110 mmol/L [facility] CO2 16(L) 22 - 32 mmol/L [facility] Anion gap 3 2 - 15 mmol/L [facility] BUN 34(H) 6 - 25 mg/dL [facility] Creatinine 0.72 0.60 - 1.10 mg/dL [facility] Glucose 131 70 - 199 mg/dL [facility] Comment: Interpretive Data Fasting glucose >/= 126 mg/dl is diagnostic for diabetes. Fasting is defined as no caloric intake for at least 8 hours. Fasting glucose between 100 mg/dl to 125 mg/dl is diagnostic of prediabetes. In a patient with classic symptoms of hyperglycemia or hyperglycemic crisis, a random glucose >/= 200 mg/dl is diagnostic for diabetes. In the absence of unequivocal hyperglycemia, results should be confirmed by repeat testing. The classification and Diagnosis of Diabetes Diabetes Care 202; 46: S19-S40. Current interpretive data was last revised 2022. Calcium 10.5(H) 8.5 - 10.3 mg/dL [facility] Bilirubin, total 0.2 0.1 - 1.2 mg/dL [facility] Protein, pl 7.0 6.5 - 8.5 g/dL [facility] Albumin 2.2(L) 3.5 - 5.0 g/dL [facility] Alk phos 121 40 - 130 Units/L [facility] ALT 27 7 - 45 Units/L [facility] AST 49(H) 10 - 45 Units/L [facility] Blood 03/13/2024 4:20 AM POLICY CHECKER 03/13/2024 6:21 AM POLICY CHECKER Donnie Erazo MD LAB BLOOD ORDERABLES Final Resul t [facility] One [facility] Department [place] [address] * eGFR (03/09/2024 4:00 AM POLICY CHECKER) eGFR 63 >=60 mL/min/1. 73 m2 Comment: Interpretive Data Reference Interval Normal >/= 90 mL/min/1.73m2 Mildly decreased* 60 - 89 mL/min/1.73m2 Mildly to moderately decreased 45 - 59 mL/min/1.73m2 Moderately to severely decreased 30 - 44 mL/min/1.73m2 Severely decreased 15 - 29 mL/min/1.73m2 Kidney Failure < 15 mL/min/1.73m2 *Relative to young adult level Estimated glomerular filtration rate is determined by the 2020 CKD-EPI equation recommended by the National Kidney Foundation (A Unifying Approach to GFR Estimation: Recommendations of the NKF-ASK Task Force on Reassessing the Inclusion of Race in Diagnosing Kidney Disease, JASN 202). The CKD-EPI equation should not be used for patients with unstable renal function and has not been validated in children and those over 70. Current interpretive data was last reviewed 2020. Blood 03/09/2024 4:00 AM POLICY CHECKER 03/09/2024 7:34 AM POLICY CHECKER us Donnie Erazo MD LAB BLOOD ORDERABLES Final Resul t [facility] One [facility] Department [place] [address] * Differential, auto (03/09/2024 4:00 AM POLICY CHECKER) Neutrophil abs 1.6 1.5 - 6.5 K/cumm Imm gran abs 0.0 0.0 - 0.1 K/cumm [facility] Lymphocyte abs 1.2 0.8 - 3.3 K/cumm [facility] Monocyte abs 0.4 0.2 - 0.8 K/cumm [facility] Eosinophil abs 0.2 0.0 - 0.5 K/cumm [facility] Basophil abs 0.0 0.0 - 0.1 K/cumm [facility] Neutrophil pct 46.7 % [facility] Comment: Interpretive Data Percent cell count reference ranges are not reported, since discordance with absolute values may lead to misinterpretation of CBC data. Current Interpretive Data was last revised on 2017. Imm gran pct 0.6 % [facility] Comment: Interpretive Data Percent cell count reference ranges are not reported, since discordance with absolute values may lead to misinterpretation of CBC data. Current Interpretive Data was last revised on 2017. Lymphocyte pct 35.7 % [facility] Comment: Interpretive Data Percent cell count reference ranges are not reported, since discordance with absolute values may lead to misinterpretation of CBC data. Current Interpretive Data was last revised on 2017. Monocyte pct 11.7 % [facility] Comment: Interpretive Data Percent cell count reference ranges are not reported, since discordance with absolute values may lead to misinterpretation of CBC data. Current Interpretive Data was last revised on 2017. Eosinophil pct 4.7 % [facility] Comment: Interpretive Data Percent cell count reference ranges are not reported, since discordance with absolute values may lead to misinterpretation of CBC data. Current Interpretive Data was last revised on 2017. Basophil pct 0.6 % [facility] Comment: Interpretive Data Percent cell count reference ranges are not reported, since discordance with absolute values may lead to misinterpretation of CBC data. Current Interpretive Data was last revised on 2017. Blood 03/09/2024 4:00 AM POLICY CHECKER 03/09/2024 7:13 AM POLICY CHECKER us Donnie Erazo MD LAB BLOOD ORDERABLES Final Resul t [facility] One [facility] Department [place] [address] * (ABNORMAL) CBC with auto differential (03/09/2024 4:00 AM POLICY CHECKER) WBC 3.4(L) 3.8 - 9.9 K/cumm Hgb 7.7(L) 11.9 - 15.5 g/dL [facility] Hct 25.6(L) 35.6 - 45.5 % [facility] Plt 136(L) 150 - 400 K/cumm [facility] MPV 10.8 9.1 - 12.3 fL [facility] RBC 2.91(L) 3.90 - 5.20 M/cumm [facility] MCV 88.0 81.3 - 96.4 fL [facility] Comment: MCV Delta, due to possible patient therapy(TPN. Confirmed per Brennan Villaseñor RN MCH 26.5(L) 27.1 - 33.3 pg [facility] MCHC 30.1(L) 32.3 - 35.7 g/dL [facility] RDW CV 19.8(H) 11.1 - 14.9 % [facility] RDW SD 62.4(H) 35.7 - 48.1 fL [facility] NRBC abs 0.00 0.00 - 0.01 K/cumm [facility] Blood 03/09/2024 4:00 AM POLICY CHECKER 03/09/2024 7:13 AM POLICY CHECKER us Donnie Erazo MD LAB BLOOD ORDERABLES Edited Resu lt - Final Performing Organization Address [facility] Co de Phone Number [facility] [place] [address] * Phosphorus (03/09/2024 4:00 AM POLICY CHECKER) Pathologist [facility] Phosphorus, pl 2.9 2.3 - 4.5 mg/dL Blood 03/09/2024 4:00 AM POLICY CHECKER 03/09/2024 7:12 AM POLICY CHECKER us Donnie Erazo MD LAB BLOOD ORDERABLES Final Resul t Performing Organization Address [facility] de Phone Number [facility] [place] [address] * Magnesium (03/09/2024 4:00 AM POLICY CHECKER) [facility] Magnesium 1.9 1.4 - 2.5 mg/dL Blood 03/09/2024 4:00 AM POLICY CHECKER 03/09/2024 7:12 AM POLICY CHECKER us Donnie Erazo MD LAB BLOOD ORDERABLES Final Resul t Performing Organization Address [facility] de Phone Number [facility] [place] [address] * (ABNORMAL) Comprehensive metabolic panel (03/09/2024 4:00 AM POLICY CHECKER) Pathologist [facility] Sodium 138 135 - 145 mmol/L Potassium, pl 3.8 3.3 - 4.9 mmol/L [facility] Chloride 119(H) 97 - 110 mmol/L [facility] CO2 16(L) 22 - 32 mmol/L [facility] Anion gap 3 2 - 15 mmol/L [facility] BUN 35(H) 6 - 25 mg/dL [facility] Creatinine 0.91 0.60 - 1.10 mg/dL [facility] Glucose 119 70 - 199 mg/dL [facility] Comment: Interpretive Data Fasting glucose >/= 126 mg/dl is diagnostic for diabetes. Fasting is defined as no caloric intake for at least 8 hours. Fasting glucose between 100 mg/dl to 125 mg/dl is diagnostic of prediabetes. In a patient with classic symptoms of hyperglycemia or hyperglycemic crisis, a random glucose >/= 200 mg/dl is diagnostic for diabetes. In the absence of unequivocal hyperglycemia, results should be confirmed by repeat testing. The classification and Diagnosis of Diabetes Diabetes Care 202; 46: S19-S40. Current interpretive data was last revised 2022. Calcium 9.6 8.5 - 10.3 mg/dL [facility] Bilirubin, total 0.3 0.1 - 1.2 mg/dL [facility] Protein, pl 7.0 6.5 - 8.5 g/dL [facility] Albumin 2.0(L) 3.5 - 5.0 g/dL [facility] Alk phos 124 40 - 130 Units/L [facility] ALT 13 7 - 45 Units/L [facility] AST 24 10 - 45 Units/L [facility] Blood 03/09/2024 4:00 AM POLICY CHECKER 03/09/2024 7:12 AM POLICY CHECKER us Donnie Erazo MD LAB BLOOD ORDERABLES Final Resul t [facility] One [facility] Department [place] [address] * eGFR (03/08/2024 12:52 PM POLICY CHECKER) eGFR 72 >=60 mL/min/1. 73 m2 Comment: Interpretive Data Reference Interval Normal >/= 90 mL/min/1.73m2 Mildly decreased* 60 - 89 mL/min/1.73m2 Mildly to moderately decreased 45 - 59 mL/min/1.73m2 Moderately to severely decreased 30 - 44 mL/min/1.73m2 Severely decreased 15 - 29 mL/min/1.73m2 Kidney Failure < 15 mL/min/1.73m2 *Relative to young adult level Estimated glomerular filtration rate is determined by the 2020 CKD-EPI equation recommended by the National Kidney Foundation (A Unifying Approach to GFR Estimation: Recommendations of the NKF-ASK Task Force on Reassessing the Inclusion of Race in Diagnosing Kidney Disease, JASN 2020). The CKD-EPI equation should not be used for patients with unstable renal function and has not been validated in children and those over 70. Current interpretive data was last reviewed 2020. Blood 03/08/2024 12:5 2 PM POLICY CHECKER 03/08/2024 2:33 PM POLICY CHECKER us Donnie Erazo MD LAB BLOOD ORDERABLES Final Resul t [facility] One [facility] Department [place] [address] * (ABNORMAL) Comprehensive metabolic panel (03/08/2024 12:52 PM POLICY CHECKER) Sodium 138 135 - 145 mmol/L Comment:Repeated and Verifie d Potassium, pl 3.8 3.3 - 4.9 mmol/L [facility] Chloride 116(H) 97 - 110 mmol/L [facility] Comment:Repeated and Verifie d CO2 17(L) 22 - 32 mmol/L [facility] Anion gap 5 2 - 15 mmol/L [facility] Comment:Repeated and Verifie d BUN 32(H) 6 - 25 mg/dL [facility] Creatinine 0.82 0.60 - 1.10 mg/dL [facility] Glucose 89 70 - 199 mg/dL [facility] Comment: Interpretive Data Fasting glucose >/= 126 mg/dl is diagnostic for diabetes. Fasting is defined as no caloric intake for at least 8 hours. Fasting glucose between 100 mg/dl to 125 mg/dl is diagnostic of prediabetes. In a patient with classic symptoms of hyperglycemia or hyperglycemic crisis, a random glucose >/= 200 mg/dl is diagnostic for diabetes. In the absence of unequivocal hyperglycemia, results should be confirmed by repeat testing. The classification and Diagnosis of Diabetes Diabetes Care 2021; 46: S19-S40. Current interpretive data was last revised 2022. Calcium 9.5 8.5 - 10.3 mg/dL [facility] Bilirubin, total 0.3 0.1 - 1.2 mg/dL [facility] Protein, pl 7.2 6.5 - 8.5 g/dL [facility] Albumin 2.0(L) 3.5 - 5.0 g/dL [facility] Alk phos 136(H) 40 - 130 Units/L [facility] ALT 14 7 - 45 Units/L [facility] AST 25 10 - 45 Units/L [facility] Blood 03/08/2024 12:5 2 PM POLICY CHECKER 03/08/2024 2:22 PM POLICY CHECKER us Donnie Erazo MD LAB BLOOD ORDERABLES Final Resul t [facility] One [facility] Department [place] [address] * eGFR (03/08/2024 4:00 AM POLICY CHECKER) eGFR See Comment >=60 Comment: Interpretive Data Reference Interval Normal >/= 90 mL/min/1.73m2 Mildly decreased* 60 - 89 mL/min/1.73m2 Mildly to moderately decreased 45 - 59 mL/min/1.73m2 Moderately to severely decreased 30 - 44 mL/min/1.73m2 Severely decreased 15 - 29 mL/min/1.73m2 Kidney Failure < 15 mL/min/1.73m2 *Relative to young adult level Estimated glomerular filtration rate is determined by the 2020 CKD-EPI equation recommended by the National Kidney Foundation (A Unifying Approach to GFR Estimation: Recommendations of the NKF-ASK Task Force on Reassessing the Inclusion of Race in Diagnosing Kidney Disease, JASN 202). The CKD-EPI equation should not be used for patients with unstable renal function and has not been validated in children and those over 70. Current interpretive data was last reviewed 2020. Blood 03/08/2024 4:00 AM POLICY CHECKER 03/08/2024 5:53 AM POLICY CHECKER us Donnie Erazo MD LAB BLOOD ORDERABLES Edited Resu lt - Final [facility] One [facility] [place] [address] * Differential, auto (03/08/2024 4:00 AM POLICY CHECKER) Neutrophil abs 2.2 1.5 - 6.5 K/cumm Imm gran abs 0.0 0.0 - 0.1 K/cumm [facility] Lymphocyte abs 1.2 0.8 - 3.3 K/cumm [facility] Monocyte abs 0.4 0.2 - 0.8 K/cumm [facility] Eosinophil abs 0.2 0.0 - 0.5 K/cumm [facility] Basophil abs 0.0 0.0 - 0.1 K/cumm [facility] Neutrophil pct 55.5 % [facility] Comment: Interpretive Data Percent cell count reference ranges are not reported, since discordance with absolute values may lead to misinterpretation of CBC data. Current Interpretive Data was last revised on 2017. Imm gran pct 0.5 % [facility] Comment: Interpretive Data Percent cell count reference ranges are not reported, since discordance with absolute values may lead to misinterpretation of CBC data. Current Interpretive Data was last revised on 2017. Lymphocyte pct 30.1 % [facility] Comment: Interpretive Data Percent cell count reference ranges are not reported, since discordance with absolute values may lead to misinterpretation of CBC data. Current Interpretive Data was last revised on 2017. Monocyte pct 9.7 % [facility] Comment: Interpretive Data Percent cell count reference ranges are not reported, since discordance with absolute values may lead to misinterpretation of CBC data. Current Interpretive Data was last revised on 2017. Eosinophil pct 3.7 % [facility] Comment: Interpretive Data Percent cell count reference ranges are not reported, since discordance with absolute values may lead to misinterpretation of CBC data. Current Interpretive Data was last revised on 2017. Basophil pct 0.5 % [facility] Comment: Interpretive Data Percent cell count reference ranges are not reported, since discordance with absolute values may lead to misinterpretation of CBC data. Current Interpretive Data was last revised on 2017. Blood 03/08/2024 4:00 AM POLICY CHECKER 03/08/2024 5:53 AM POLICY CHECKER Donnie Erazo MD LAB BLOOD ORDERABLES Final Resul t Performing Organization Address [facility] Co de Phone Number [facility] One [facility] [place] [address] * Critical Result Callback Chemistry (03/08/2024 4:00 AM POLICY CHECKER) Date Notified [id number] Time Notified 645 LAILA NUGENT TestName Glucose LAILA NUGENT Called/Read Back Anni NUGENT Credentials RN [facility] Called By ALY NUGENT Blood 03/08/2024 4:00 AM POLICY CHECKER 03/08/2024 5:53 AM POLICY CHECKER Donnie Erazo MD LAB BLOOD ORDERABLES Final Resul t Performing Organization Address [facility] [place] de Phone Number [facility] One [facility] Department [place] [address] * (ABNORMAL) CBC with auto differential (03/08/2024 4:00 AM POLICY CHECKER) Pathologist [facility] WBC 4.0 3.8 - 9.9 K/cumm Hgb 7.9(L) 11.9 - 15.5 g/dL [facility] Hct 29.6(L) 35.6 - 45.5 % [facility] Plt 128(L) 150 - 400 K/cumm [facility] MPV 11.0 9.1 - 12.3 fL [facility] RBC 2.98(L) 3.90 - 5.20 M/cumm [facility] MCV 99.3(H) 81.3 - 96.4 fL [facility] MCH 26.5(L) 27.1 - 33.3 pg [facility] MCHC 26.7(L) 32.3 - 35.7 g/dL [facility] RDW CV 21.3(H) 11.1 - 14.9 % [facility] RDW SD 75.4(H) 35.7 - 48.1 fL [facility] NRBC abs 0.00 0.00 - 0.01 K/cumm [facility] Blood 03/08/2024 4:00 AM POLICY CHECKER 03/08/2024 5:53 AM POLICY CHECKER us Donnie Erazo MD LAB BLOOD ORDERABLES Final Resul t Performing Organization Address [facility] [place] de Phone Number [facility] [place] [employer] [address] * (ABNORMAL) aPTT (03/08/2024 4:00 AM POLICY CHECKER) aPTT 45(H) 28 - 38 sec Comment: Interpretive Data Heparin therapeutic range: 66.0 - 100.0 seconds. Range based on correlation with therapeutic heparin activity range of 0.3 - 0.7 Units/mL. Current interpretive data was last revised on 2022. Blood 03/08/2024 4:00 AM POLICY CHECKER 03/08/2024 5:54 AM POLICY CHECKER us Donnie Erazo MD LAB BLOOD ORDERABLES Final Resul t Performing Organization Address [facility] [place] de Phone Number [facility] [place] [address] * (ABNORMAL) Protime-INR (03/08/2024 4:00 AM POLICY CHECKER) PT 15.3(H) 9.7 - 13.0 sec INR 1.41(H) 0.90 - 1.20 [facility] Comment: Interpretive data Oral anticoagulant therapeutic ranges: Venous thromboembolism prophylaxis or treatment: 2.0-3.0 CARDIOLOGY Standard range: 2.0-3.0 High-intensity range: 2.5-3.5 Refer to indication-specific guidelines for appropriate target ranges for prosthetic heart valve replacement. Current interpretive data was last revised on 2019. Blood 03/08/2024 4:00 AM POLICY CHECKER 03/08/2024 5:54 AM POLICY CHECKER us Donnie Erazo MD LAB BLOOD ORDERABLES Final Resul t Performing Organization Address City/[facility] [place] [address] * Magnesium (03/08/2024 4:00 AM POLICY CHECKER) Pathologist [facility] Magnesium 2.5 1.4 - 2.5 mg/dL Blood 03/08/2024 4:00 AM POLICY CHECKER 03/08/2024 5:53 AM POLICY CHECKER us Donnie Erazo MD LAB BLOOD ORDERABLES Final Resul t Performing Organization Address [facility] [place] [address] * Comprehensive metabolic panel (03/08/2024 4:00 AM POLICY CHECKER) Sodium See Comment 135 - 145 mmol/L Comment:Credited: Sample inv estigated and is suggestive of an improper collection (e.g., IV fluid contamination, improper tube type). Deleted at the Request of Anni COFFEY) on 03/08/2024 06:46:13 POLICY CHECKER by ALY . Potassium, pl See Comment 3.3 - 4.9 mmol/L [facility] Comment:Credited: Sample inv estigated and is suggestive of an improper collection (e.g., IV fluid contamination, improper tube type). Deleted at the Request of Anni COFFEY) on 03/08/2024 06:46:13 POLICY CHECKER by ALY . Chloride See Comment 97 - 110 mmol/L [facility] Comment:Credited: Sample inv estigated and is suggestive of an improper collection (e.g., IV fluid contamination, improper tube type). Deleted at the Request of Anni COFFEY) on 03/08/2024 06:46:13 POLICY CHECKER by ALY . CO2 See Comment 22 - 32 mmol/L [facility] Comment:Credited: Sample inv estigated and is suggestive of an improper collection (e.g., IV fluid contamination, improper tube type). Deleted at the Request of Anni COFFEY) on 03/08/2024 06:46:13 POLICY CHECKER by [facility] . Anion gap See Comment 2 - 15 mmol/L [facility] Comment:Credited: Sample inv estigated and is suggestive of an improper collection (e.g., IV fluid contamination, improper tube type). Deleted at the Request of Anni COFFEY) on 03/08/2024 06:46:13 POLICY CHECKER by ALY . BUN See Comment 6 - 25 mg/dL [facility] Comment:Credited: Sample inv estigated and is suggestive of an improper collection (e.g., IV fluid contamination, improper tube type). Deleted at the Request of Anni COFFEY) on 03/08/2024 06:46:13 POLICY CHECKER by ALLYSSA . Creatinine See Comment 0.60 - 1.10 mg/dL [facility] Comment:Credited: Sample inv estigated and is suggestive of an improper collection (e.g., IV fluid contamination, improper tube type). Deleted at the Request of Anni COFFEY) on 03/08/2024 06:46:13 POLICY CHECKER by [facility] . Glucose See Comment 70 - 199 mg/dL [facility] Comment: Credited: Sample investigated and is suggestive of an improper collection (e.g., IV fluid contamination, improper tube type). Deleted at the Request of Anni COFFEY) on 03/08/2024 06:46:13 POLICY CHECKER by [facility] . Interpretive Data Fasting glucose >/= 126 mg/dl is diagnostic for diabetes. Fasting is defined as no caloric intake for at least 8 hours. Fasting glucose between 100 mg/dl to 125 mg/dl is diagnostic of prediabetes. In a patient with classic symptoms of hyperglycemia or hyperglycemic crisis, a random glucose >/= 200 mg/dl is diagnostic for diabetes. In the absence of unequivocal hyperglycemia, results should be confirmed by repeat testing. The classification and Diagnosis of Diabetes Diabetes Care 2021; 46: S19-S40. Current interpretive data was last revised 2022. Calcium See Comment 8.5 - 10.3 mg/dL [facility] Comment:Credited: Sample inv estigated and is suggestive of an improper collection (e.g., IV fluid contamination, improper tube type). Deleted at the Request of Anni COFFEY) on 03/08/2024 06:46:13 POLICY CHECKER by [facility] . Bilirubin, total See Comment 0.1 - 1.2 mg/dL [facility] Comment:Credited: Sample inv estigated and is suggestive of an improper collection (e.g., IV fluid contamination, improper tube type). Deleted at the Request of Anni COFFEY) on 03/08/2024 06:46:13 POLICY CHECKER by Miguel . Protein, pl See Comment 6.5 - 8.5 g/dL [facility] Comment:Credited: Sample inv estigated and is suggestive of an improper collection (e.g., IV fluid contamination, improper tube type). Deleted at the Request of Anni COFFEY) on 03/08/2024 06:46:13 POLICY CHECKER by [facility] . Albumin See Comment 3.5 - 5.0 g/dL [facility] Comment:Credited: Sample inv estigated and is suggestive of an improper collection (e.g., IV fluid contamination, improper tube type). Deleted at the Request of Anni COFFEY) on 03/08/2024 06:46:13 POLICY CHECKER by Miguel . Alk phos See Comment 40 - 130 Units/L [facility] Comment:Credited: Sample inv estigated and is suggestive of an improper collection (e.g., IV fluid contamination, improper tube type). Deleted at the Request of Anni COFFEY) on 03/08/2024 06:46:13 POLICY CHECKER by Miguel . ALT See Comment 7 - 45 Units/L [facility] Comment:Credited: Sample inv estigated and is suggestive of an improper collection (e.g., IV fluid contamination, improper tube type). Deleted at the Request of Anni COFFEY) on 03/08/2024 06:46:13 POLICY CHECKER by [facility] . AST See Comment 10 - 45 Units/L [facility] Comment:Credited: Sample inv estigated and is suggestive of an improper collection (e.g., IV fluid contamination, improper tube type). Deleted at the Request of Anni COFFEY) on 03/08/2024 06:46:13 POLICY CHECKER by ALY . Blood 03/08/2024 4:00 AM POLICY CHECKER 03/08/2024 5:53 AM POLICY CHECKER Donnie Erazo MD LAB BLOOD ORDERABLES Edited Resu lt - Final Performing Organization Address [facility]/ZIP Co de Phone Number [facility] [place] [address] * POCT glucose (03/07/2024 12:23 PM POLICY CHECKER) Glucose, POC 92 70 - 199 mg/dL Blood 03/07/2024 12:2 3 PM POLICY CHECKER 03/07/2024 12:23 PM POLICY CHECKER Migel Torres MD LAB POCT ORDERABLES - DEVICE F inal Result Performing Organization Address [facility] de Phone Number [facility] [place] [address] * CT Abdomen Pelvis W Contrast (03/07/2024 12:08 PM POLICY CHECKER) Anatomical Region Laterality Modality Body N/A Computed Tomogra phy 03/07/2024 2:58 PM POLICY CHECKER Impressions 03/07/2024 2:58 PM POLICY CHECKER 1. Interval collapse of right empyema around the drainage catheter. 2. Persistent collapse of the fluid collection around a perihepatic space catheter with decrease in tracks towards the anastomosis in the right lower quadrant. 3. Stable enhancing left renal lesion concerning for renal cell cancer. 4. Interval increase in now moderate biliary ductal dilatation without obstructing lesion seen. Electronically signed by: Dallas Arthur M.D. Narrative 03/07/2024 2:58 PM POLICY CHECKER Examination: Computed tomography of the abdomen and pelvis with intravenous contrast DATE: 03/07/2024. HISTORY: Colectomy, abscesses status post drainage. TECHNIQUE: Computed tomography of the abdomen and pelvis was obtained after the uneventful administration of 68 mL of Optiray 350 according to standard protocol. FINDINGS: Comparison is made to 02/29/2024. Again seen is a cope loop catheter in a rim-enhancing now collapsed right pleural fluid collection that measures only about 9 mm in total thickness. There is a small non-loculated right pleural fluid which is similar. Atelectasis of the right lower lobe is unchanged. There is mucus plugging in the right lower lobe which is unchanged. Another catheter seen entering anteriorly which terminates in the anterior right perihepatic space also has a collapsed fluid collection around it, stable. No hepatic lesions. Moderate biliary ductal dilatation is increased from the previous examination. Spleen is normal. There is stable mild pancreatic ductal dilatation. No adrenal lesions. There are nonobstructing stones in the right kidney as well as vascular calcifications. The left kidney is atrophied. There is a stable enhancing lesion in the mid to lower zone left kidney measuring 17 mm at scanner position 364. There is some atrophy and decreased enhancement of the posterior left kidney which is probably from a prior ischemic insult. No abdominal or retroperitoneal lymphadenopathy. Uterus is surgically absent. There are changes of partial colectomy. Previously seen small gas near the anastomosis in the right lower quadrant has resolved with collapse of tissue in that area. A tiny amount of gas is seen tracking towards the right subhepatic space where the drainage catheter is. 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 Remainder of the vasculature is normal. 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 Procedure Note Dallas Arthur MD - 03/07/2024 Examination: Computed tomography of the abdomen and pelvis with intravenous contrast DATE: 03/07/2024. HISTORY: Colectomy, abscesses status post drainage. TECHNIQUE: Computed tomography of the abdomen and pelvis was obtained after the uneventful administration of 68 mL of Optiray 350 according to standard protocol. FINDINGS: Comparison is made to 02/29/2024. Again seen is a cope loop catheter in a rim-enhancing now collapsed right pleural fluid collection that measures only about 9 mm in total thickness. There is a small non-loculated right pleural fluid which is similar. Atelectasis of the right lower lobe is unchanged. There is mucus plugging in the right lower lobe which is unchanged. Another catheter seen entering anteriorly which terminates in the anterior right perihepatic space also has a collapsed fluid collection around it, stable. No hepatic lesions. Moderate biliary ductal dilatation is increased from the previous examination. Spleen is normal. There is stable mild pancreatic ductal dilatation. No adrenal lesions. There are nonobstructing stones in the right kidney as well as vascular calcifications. The left kidney is atrophied. There is a stable enhancing lesion in the mid to lower zone left kidney measuring 17 mm at scanner position 364. There is some atrophy and decreased enhancement of the posterior left kidney which is probably from a prior ischemic insult. No abdominal or retroperitoneal lymphadenopathy. Uterus is surgically absent. There are changes of partial colectomy. Previously seen small gas near the anastomosis in the right lower quadrant has resolved with collapse of tissue in that area. A tiny amount of gas is seen tracking towards the right subhepatic space where the drainage catheter is. 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 Remainder of the vasculature is normal. 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 IMPRESSION: 1. Interval collapse of right empyema around the drainage catheter. 2. Persistent collapse of the fluid collection around a perihepatic space catheter with decrease in tracks towards the anastomosis in the right lower quadrant. 3. Stable enhancing left renal lesion concerning for renal cell cancer. 4. Interval increase in now moderate biliary ductal dilatation without obstructing lesion seen. Electronically signed by: Dallas Arthur M.D. Alecia Mcgee BACK [employer] IMG CT PROCEDURES Final Result * POCT glucose (03/07/2024 9:24 AM POLICY CHECKER) Glucose, POC 137 70 - 199 mg/dL Blood 03/07/2024 9:24 AM POLICY CHECKER 03/07/2024 9:24 AM POLICY CHECKER Migel Torres MD LAB POCT ORDERABLES - DEVICE F inal Result [facility]IL[facility] NUGENT [facility] [place] [address] * POCT glucose (03/06/2024 4:50 PM POLICY CHECKER) Glucose, POC 107 70 - 199 mg/dL Blood 03/06/2024 4:50 PM POLICY CHECKER 03/06/2024 4:50 PM POLICY CHECKER Migel Torres MD LAB POCT ORDERABLES - DEVICE F inal Result [facility] [place] [address] * POCT glucose (03/06/2024 12:18 PM POLICY CHECKER) Glucose, POC 104 70 - 199 mg/dL Blood 03/06/2024 12:1 8 PM POLICY CHECKER 03/06/2024 12:18 PM POLICY CHECKER Migel Torres MD LAB POCT ORDERABLES - DEVICE F inal Result Performing Organization Address City/[facility] de Phone Number [facility] Department [place] [address] * Differential, auto (03/06/2024 8:53 AM POLICY CHECKER) Neutrophil abs 2.9 1.5 - 6.5 K/cumm Imm gran abs 0.0 0.0 - 0.1 K/cumm [facility] Lymphocyte abs 1.6 0.8 - 3.3 K/cumm [facility] Monocyte abs 0.5 0.2 - 0.8 K/cumm [facility] Eosinophil abs 0.2 0.0 - 0.5 K/cumm [facility] Basophil abs 0.0 0.0 - 0.1 K/cumm [facility] Neutrophil pct 54.7 % [facility] Comment: Interpretive Data Percent cell count reference ranges are not reported, since discordance with absolute values may lead to misinterpretation of CBC data. Current Interpretive Data was last revised on 2017. Imm gran pct 0.6 % [facility] Comment: Interpretive Data Percent cell count reference ranges are not reported, since discordance with absolute values may lead to misinterpretation of CBC data. Current Interpretive Data was last revised on 2017. Lymphocyte pct 30.6 % [facility] Comment: Interpretive Data Percent cell count reference ranges are not reported, since discordance with absolute values may lead to misinterpretation of CBC data. Current Interpretive Data was last revised on 2017. Monocyte pct 9.8 % [facility] Comment: Interpretive Data Percent cell count reference ranges are not reported, since discordance with absolute values may lead to misinterpretation of CBC data. Current Interpretive Data was last revised on 2017. Eosinophil pct 3.7 % [facility] Comment: Interpretive Data Percent cell count reference ranges are not reported, since discordance with absolute values may lead to misinterpretation of CBC data. Current Interpretive Data was last revised on 2017. Basophil pct 0.6 % [facility] Comment: Interpretive Data Percent cell count reference ranges are not reported, since discordance with absolute values may lead to misinterpretation of CBC data. Current Interpretive Data was last revised on 2017. Blood 03/06/2024 8:53 AM POLICY CHECKER 03/06/2024 9:29 AM POLICY CHECKER us Migel Torres MD LAB BLOOD ORDERABLES Final Res ult [facility] Department [place] [address] * (ABNORMAL) CBC with auto differential (03/06/2024 8:53 AM POLICY CHECKER) WBC 5.1 3.8 - 9.9 K/cumm Hgb 8.4(L) 11.9 - 15.5 g/dL [facility] Hct 28.4(L) 35.6 - 45.5 % [facility] Plt 150 150 - 400 K/cumm [facility] MPV 10.6 9.1 - 12.3 fL [facility] RBC 3.25(L) 3.90 - 5.20 M/cumm [facility] MCV 87.4 81.3 - 96.4 fL [facility] Comment:MCV delta due to shasta arent blood transfusion. MCH 25.8(L) 27.1 - 33.3 pg [facility] MCHC 29.6(L) 32.3 - 35.7 g/dL [facility] RDW CV 19.3(H) 11.1 - 14.9 % [facility] RDW SD 59.4(H) 35.7 - 48.1 fL [facility] NRBC abs 0.00 0.00 - 0.01 K/cumm [facility] Blood 03/06/2024 8:53 AM POLICY CHECKER 03/06/2024 9:29 AM POLICY CHECKER Migel Torres MD LAB BLOOD ORDERABLES Final Res ult Performing Organization Address City/[facility]/ZIP Co de Phone Number [facility] Department [place] [address] * POCT glucose (03/06/2024 8:38 AM POLICY CHECKER) [facility] Glucose, POC 125 70 - 199 mg/dL Blood 03/06/2024 8:38 AM POLICY CHECKER 03/06/2024 8:38 AM POLICY CHECKER Migel Torres MD LAB POCT ORDERABLES - DEVICE F inal Result Performing Organization Address [facility] Co de Phone Number [facility] Department [place] [address] * (ABNORMAL) CBC without differential (03/06/2024 5:02 AM POLICY CHECKER) [facility] WBC 3.6(L) 3.8 - 9.9 K/cumm Hgb 7.0(L) 11.9 - 15.5 g/dL [facility] Hct 24.7(L) 35.6 - 45.5 % [facility] Plt 124(L) 150 - 400 K/cumm [facility] MPV 12.2 9.1 - 12.3 fL [facility] RBC 2.29(L) 3.90 - 5.20 M/cumm [facility] MCV 107.9(H) 81.3 - 96.4 fL [facility] Comment:MCV delta due to shasta arent blood transfusion. MCH 30.6 27.1 - 33.3 pg [facility] MCHC 28.3(L) 32.3 - 35.7 g/dL [facility] RDW CV 20.6(H) 11.1 - 14.9 % [facility] RDW SD 79.8(H) 35.7 - 48.1 fL [facility] NRBC abs 0.02(H) 0.00 - 0.01 K/cumm [facility] Blood 03/06/2024 5:02 AM POLICY CHECKER 03/06/2024 5:21 AM POLICY CHECKER us Kash Sanchez MD LAB BLOOD O RDERABLES Final Result Performing Organization Address [facility]/ZIP Co de Phone Number [facility] [place] [address] * Transfuse RBC (03/06/2024 3:41 AM POLICY CHECKER) Blood us Roxanne Fitzgerald MD BLOOD TRANSFUSION ORDERABL ES Edited Result - Final Performing Organization Address [facility]/ZIP Co de Phone Number [facility] [place] [address] * Prepare RBC: 1 Units (03/05/2024 11:29 PM POLICY CHECKER) Product code [id number] Unit Number [id number] [facility] Product Blood Type OPOS [facility] Dispense Status PRESUMED TRANSFUSED [facility] Blood 03/05/2024 11:2 9 PM POLICY CHECKER 03/05/2024 11:29 PM POLICY CHECKER Narrative [facility] - 03/06/2024 4:00 PM POLICY CHECKER Are special requirements needed? (All products are leukoreduced and CMV- safe)- >No Date required:-[id number] LRRBC # of [id number] Reasons:-Hgb <7 g/dL} Migel Torres MD BLOOD BANK PRODUCT ORDERABLES Final Result Performing Organization Address [facility] Co de Phone Number [facility] [place] [address] * (ABNORMAL) eGFR (03/05/2024 10:37 PM POLICY CHECKER) eGFR 56(L) >=60 mL/min/1. 73 m2 Comment: Interpretive Data Reference Interval Normal >/= 90 mL/min/1.73m2 Mildly decreased* 60 - 89 mL/min/1.73m2 Mildly to moderately decreased 45 - 59 mL/min/1.73m2 Moderately to severely decreased 30 - 44 mL/min/1.73m2 Severely decreased 15 - 29 mL/min/1.73m2 Kidney Failure < 15 mL/min/1.73m2 *Relative to young adult level Estimated glomerular filtration rate is determined by the 2020 CKD-EPI equation recommended by the National Kidney Foundation (A Unifying Approach to GFR Estimation: Recommendations of the NKF-ASK Task Force on Reassessing the Inclusion of Race in Diagnosing Kidney Disease, JASN 2020). The CKD-EPI equation should not be used for patients with unstable renal function and has not been validated in children and those over 70. Current interpretive data was last reviewed 2020. Blood 03/05/2024 10:3 7 PM POLICY CHECKER 03/05/2024 11:17 PM POLICY CHECKER Migel Torres MD LAB BLOOD ORDERABLES Final Res ult Performing Organization Address City/[facility]/ZIP Co de Phone Number [facility] [place] [address] * (ABNORMAL) CBC without differential (03/05/2024 10:37 PM POLICY CHECKER) Pathologist [facility] WBC 4.6 3.8 - 9.9 K/cumm Hgb 6.8(L) 11.9 - 15.5 g/dL [facility] Hct 22.9(L) 35.6 - 45.5 % [facility] Plt 142(L) 150 - 400 K/cumm [facility] MPV 11.4 9.1 - 12.3 fL [facility] RBC 2.64(L) 3.90 - 5.20 M/cumm [facility] MCV 86.7 81.3 - 96.4 fL [facility] MCH 25.8(L) 27.1 - 33.3 pg [facility] MCHC 29.7(L) 32.3 - 35.7 g/dL [facility] RDW CV 20.0(H) 11.1 - 14.9 % [facility] RDW SD 62.5(H) 35.7 - 48.1 fL [facility] NRBC abs 0.00 0.00 - 0.01 K/cumm [facility] Blood 03/05/2024 10:3 7 PM POLICY CHECKER 03/05/2024 11:17 PM POLICY CHECKER us Migel Torres MD LAB BLOOD ORDERABLES Final Res ult [facility] Department [place] [address] * (ABNORMAL) Basic metabolic panel (03/05/2024 10:37 PM POLICY CHECKER) Sodium 139 135 - 145 mmol/L Potassium, pl 4.0 3.3 - 4.9 mmol/L [facility] Chloride 115(H) 97 - 110 mmol/L [facility] CO2 17(L) 22 - 32 mmol/L [facility] Anion gap 7 2 - 15 mmol/L [facility] BUN 36(H) 6 - 25 mg/dL [facility] Creatinine 1.01 0.60 - 1.10 mg/dL [facility] Glucose 69(L) 70 - 199 mg/dL [facility] Comment: Interpretive Data Fasting glucose >/= 126 mg/dl is diagnostic for diabetes. Fasting is defined as no caloric intake for at least 8 hours. Fasting glucose between 100 mg/dl to 125 mg/dl is diagnostic of prediabetes. In a patient with classic symptoms of hyperglycemia or hyperglycemic crisis, a random glucose >/= 200 mg/dl is diagnostic for diabetes. In the absence of unequivocal hyperglycemia, results should be confirmed by repeat testing. The classification and Diagnosis of Diabetes Diabetes Care 2021; 46: S19-S40. Current interpretive data was last revised 2022. Calcium 9.3 8.5 - 10.3 mg/dL [facility] Blood 03/05/2024 10:3 7 PM POLICY CHECKER 03/05/2024 11:17 PM POLICY CHECKER Migel Torres MD LAB BLOOD ORDERABLES Final Res ult Performing Organization Address [facility]/ZIP Co de Phone Number [facility] [place] [employer] [address] * POCT glucose (03/05/2024 8:48 PM POLICY CHECKER) Glucose, POC 101 70 - 199 mg/dL Blood 03/05/2024 8:48 PM POLICY CHECKER 03/05/2024 8:48 PM POLICY CHECKER Migel Torres MD LAB POCT ORDERABLES - DEVICE F inal Result Performing Organization Address [facility] Co de Phone Number [facility] [place] [address] * POCT glucose (03/05/2024 4:37 PM POLICY CHECKER) Glucose, POC 95 70 - 199 mg/dL Blood 03/05/2024 4:37 PM POLICY CHECKER 03/05/2024 4:37 PM POLICY CHECKER Migel Torres MD LAB POCT ORDERABLES - DEVICE F inal Result Performing Organization Address [facility] Co de Phone Number [facility] [place] [address] * POCT glucose (03/05/2024 12:05 PM POLICY CHECKER) Glucose, POC 157 70 - 199 mg/dL Blood 03/05/2024 12:0 5 PM POLICY CHECKER 03/05/2024 12:05 PM POLICY CHECKER Migel Torres MD LAB POCT ORDERABLES - DEVICE F inal Result Performing Organization Address City/[facility] Co de Phone Number [facility] [place] [address] * POCT glucose (03/05/2024 7:41 AM POLICY CHECKER) Glucose, POC 142 70 - 199 mg/dL Blood 03/05/2024 7:41 AM POLICY CHECKER 03/05/2024 7:41 AM POLICY CHECKER Migel Torres MD LAB POCT ORDERABLES - DEVICE F inal Result Performing Organization Address [facility] de Phone Number [facility] [place] [address] * (ABNORMAL) eGFR (03/05/2024 12:14 AM POLICY CHECKER) Pathologist [facility] eGFR 50(L) >=60 mL/min/1. 73 m2 Comment: Interpretive Data Reference Interval Normal >/= 90 mL/min/1.73m2 Mildly decreased* 60 - 89 mL/min/1.73m2 Mildly to moderately decreased 45 - 59 mL/min/1.73m2 Moderately to severely decreased 30 - 44 mL/min/1.73m2 Severely decreased 15 - 29 mL/min/1.73m2 Kidney Failure < 15 mL/min/1.73m2 *Relative to young adult level Estimated glomerular filtration rate is determined by the 2020 CKD-EPI equation recommended by the National Kidney Foundation (A Unifying Approach to GFR Estimation: Recommendations of the NKF-ASK Task Force on Reassessing the Inclusion of Race in Diagnosing Kidney Disease, JASN 2020). The CKD-EPI equation should not be used for patients with unstable renal function and has not been validated in children and those over 70. Current interpretive data was last reviewed 2020. Blood 03/05/2024 12:1 4 AM POLICY CHECKER 03/05/2024 1:48 AM POLICY CHECKER Migel Torres MD LAB BLOOD ORDERABLES Final Res ult Performing Organization Address [facility] Co de Phone Number [facility] [place] [address] * (ABNORMAL) CBC without differential (03/05/2024 12:14 AM POLICY CHECKER) WBC 4.9 3.8 - 9.9 K/cumm Hgb 7.3(L) 11.9 - 15.5 g/dL [facility] Hct 24.6(L) 35.6 - 45.5 % [facility] Plt 141(L) 150 - 400 K/cumm [facility] MPV 11.1 9.1 - 12.3 fL [facility] RBC 2.85(L) 3.90 - 5.20 M/cumm [facility] MCV 86.3 81.3 - 96.4 fL [facility] MCH 25.6(L) 27.1 - 33.3 pg [facility] MCHC 29.7(L) 32.3 - 35.7 g/dL [facility] RDW CV 19.9(H) 11.1 - 14.9 % [facility] RDW SD 61.0(H) 35.7 - 48.1 fL [facility] NRBC abs 0.00 0.00 - 0.01 K/cumm [facility] Blood 03/05/2024 12:1 4 AM POLICY CHECKER 03/05/2024 1:09 AM POLICY CHECKER Migel Torres MD LAB BLOOD ORDERABLES Final Res ult [facility] [place] [employer] [address] * Phosphorus (03/05/2024 12:14 AM POLICY CHECKER) [facility] Phosphorus, pl 3.0 2.3 - 4.5 mg/dL Blood 03/05/2024 12:1 4 AM POLICY CHECKER 03/05/2024 1:48 AM POLICY CHECKER Migel Torres MD LAB BLOOD ORDERABLES Final Res ult Performing Organization Address [facility] de Phone Number [facility] [place] [address] * Magnesium (03/05/2024 12:14 AM POLICY CHECKER) [facility] Magnesium 2.1 1.4 - 2.5 mg/dL Blood 03/05/2024 12:1 4 AM POLICY CHECKER 03/05/2024 1:48 AM POLICY CHECKER Migel Torres MD LAB BLOOD ORDERABLES Final Res ult Performing Organization Address [facility] de Phone Number [facility] [place] [address] * (ABNORMAL) Basic metabolic panel (03/05/2024 12:14 AM POLICY CHECKER) [facility] Sodium 139 135 - 145 mmol/L Potassium, pl 3.9 3.3 - 4.9 mmol/L [facility] Chloride 114(H) 97 - 110 mmol/L [facility] CO2 19(L) 22 - 32 mmol/L [facility] Anion gap 6 2 - 15 mmol/L [facility] BUN 35(H) 6 - 25 mg/dL [facility] Creatinine 1.10 0.60 - 1.10 mg/dL [facility] Glucose 75 70 - 199 mg/dL [facility] Comment: Interpretive Data Fasting glucose >/= 126 mg/dl is diagnostic for diabetes. Fasting is defined as no caloric intake for at least 8 hours. Fasting glucose between 100 mg/dl to 125 mg/dl is diagnostic of prediabetes. In a patient with classic symptoms of hyperglycemia or hyperglycemic crisis, a random glucose >/= 200 mg/dl is diagnostic for diabetes. In the absence of unequivocal hyperglycemia, results should be confirmed by repeat testing. The classification and Diagnosis of Diabetes Diabetes Care 2021; 46: S19-S40. Current interpretive data was last revised 2022. Calcium 9.6 8.5 - 10.3 mg/dL [facility] Blood 03/05/2024 12:1 4 AM POLICY CHECKER 03/05/2024 1:48 AM POLICY CHECKER Migel Torres MD LAB BLOOD ORDERABLES Final Res ult Performing Organization Address [facility] Co de Phone Number [facility] [place] [employer] [place] [address] * POCT glucose (03/04/2024 11:30 PM POLICY CHECKER) Glucose, POC 85 70 - 199 mg/dL Blood 03/04/2024 11:3 0 PM POLICY CHECKER 03/04/2024 11:30 PM POLICY CHECKER Migel Torres MD LAB POCT ORDERABLES - DEVICE F inal Result Performing Organization Address [facility] de Phone Number [facility] [place] [address] * POCT glucose (03/04/2024 6:28 PM POLICY CHECKER) Glucose, POC 94 70 - 199 mg/dL Blood 03/04/2024 6:28 PM POLICY CHECKER 03/04/2024 6:28 PM POLICY CHECKER Migel Torres MD LAB POCT ORDERABLES - DEVICE F inal Result Performing Organization Address [facility] de Phone Number [facility] [place] [address] * Type and screen (03/04/2024 11:16 AM POLICY CHECKER) Sumeet, indirect Negative ABO Rh O Positive [facility] Blood 03/04/2024 11:1 6 AM POLICY CHECKER 03/04/2024 12:42 PM POLICY CHECKER Narrative [facility] - 03/04/2024 1:32 PM POLICY CHECKER Has the patient had Daratumumab or Isatuximab in the past 6 months?->Unknown Migel Torres MD LAB BLOOD BANK TEST ORDERABLES Final Result Performing Organization Address [facility] Co de Phone Number [facility] [place] [employer] [place] [address] * POCT glucose (03/04/2024 11:11 AM POLICY CHECKER) [facility] Glucose, POC 157 70 - 199 mg/dL Blood 03/04/2024 11:1 1 AM POLICY CHECKER 03/04/2024 11:11 AM POLICY CHECKER Migel Torres MD LAB POCT ORDERABLES - DEVICE F inal Result Performing Organization Address [facility] de Phone Number [facility] [place] [employer] [place] [address] * POCT glucose (03/04/2024 8:09 AM POLICY CHECKER) [facility] Glucose, POC 156 70 - 199 mg/dL Blood 03/04/2024 8:09 AM POLICY CHECKER 03/04/2024 8:09 AM POLICY CHECKER Migel Torres MD LAB POCT ORDERABLES - DEVICE F inal Result Performing Organization Address [facility] de Phone Number [facility] [place] [employer] [place] [address] * (ABNORMAL) eGFR (03/03/2024 11:18 PM POLICY CHECKER) [facility] eGFR 48(L) >=60 mL/min/1. 73 m2 Comment: Interpretive Data Reference Interval Normal >/= 90 mL/min/1.73m2 Mildly decreased* 60 - 89 mL/min/1.73m2 Mildly to moderately decreased 45 - 59 mL/min/1.73m2 Moderately to severely decreased 30 - 44 mL/min/1.73m2 Severely decreased 15 - 29 mL/min/1.73m2 Kidney Failure < 15 mL/min/1.73m2 *Relative to young adult level Estimated glomerular filtration rate is determined by the 2020 CKD-EPI equation recommended by the National Kidney Foundation (A Unifying Approach to GFR Estimation: Recommendations of the NKF-ASK Task Force on Reassessing the Inclusion of Race in Diagnosing Kidney Disease, JASN 2020). The CKD-EPI equation should not be used for patients with unstable renal function and has not been validated in children and those over 70. Current interpretive data was last reviewed 2020. Blood 03/03/2024 11:1 8 PM POLICY CHECKER 03/04/2024 12:04 AM POLICY CHECKER Cassandra Farrell BACK [employer] LAB BLOOD ORDERABLES Manisha jamil Result [facility] [place] [address] * (ABNORMAL) CBC without differential (03/03/2024 11:18 PM POLICY CHECKER) WBC 5.9 3.8 - 9.9 K/cumm Hgb 7.4(L) 11.9 - 15.5 g/dL [facility] Hct 24.6(L) 35.6 - 45.5 % [facility] Plt 165 150 - 400 K/cumm [facility] MPV 11.1 9.1 - 12.3 fL [facility] RBC 2.89(L) 3.90 - 5.20 M/cumm [facility] MCV 85.1 81.3 - 96.4 fL [facility] MCH 25.6(L) 27.1 - 33.3 pg [facility] MCHC 30.1(L) 32.3 - 35.7 g/dL [facility] RDW CV 19.6(H) 11.1 - 14.9 % [facility] RDW SD 60.3(H) 35.7 - 48.1 fL [facility] NRBC abs 0.00 0.00 - 0.01 K/cumm [facility] Blood 03/03/2024 11:1 8 PM POLICY CHECKER 03/04/2024 12:04 AM POLICY CHECKER Cassandra Farrell BACK [employer] LAB BLOOD ORDERABLES Manisha l Result [facility] [place] [address] * Phosphorus (03/03/2024 11:18 PM POLICY CHECKER) Pathologist [facility] Phosphorus, pl 3.0 2.3 - 4.5 mg/dL Blood 03/03/2024 11:1 8 PM POLICY CHECKER 03/04/2024 12:04 AM POLICY CHECKER Cassandra Farrell BACK [employer] LAB BLOOD ORDERABLES Manisha l Result Performing Organization Address [facility] Co de Phone Number [facility] [place] [address] * Magnesium (03/03/2024 11:18 PM POLICY CHECKER) Pathologist [facility] Magnesium 2.2 1.4 - 2.5 mg/dL Blood 03/03/2024 11:1 8 PM POLICY CHECKER 03/04/2024 12:04 AM POLICY CHECKER Cassandra Philippeo BACK [employer] LAB BLOOD ORDERABLES Manisha l Result Performing Organization Address City/[facility] Co de Phone Number [facility] [place] [employer] [place] [address] * (ABNORMAL) Basic metabolic panel (03/03/2024 11:18 PM POLICY CHECKER) Sodium 138 135 - 145 mmol/L Potassium, pl 3.9 3.3 - 4.9 mmol/L [facility] Chloride 111(H) 97 - 110 mmol/L [facility] CO2 22 22 - 32 mmol/L [facility] Anion gap 5 2 - 15 mmol/L [facility] BUN 34(H) 6 - 25 mg/dL [facility] Creatinine 1.15(H) 0.60 - 1.10 mg/dL [facility] Glucose 78 70 - 199 mg/dL [facility] Comment: Interpretive Data Fasting glucose >/= 126 mg/dl is diagnostic for diabetes. Fasting is defined as no caloric intake for at least 8 hours. Fasting glucose between 100 mg/dl to 125 mg/dl is diagnostic of prediabetes. In a patient with classic symptoms of hyperglycemia or hyperglycemic crisis, a random glucose >/= 200 mg/dl is diagnostic for diabetes. In the absence of unequivocal hyperglycemia, results should be confirmed by repeat testing. The classification and Diagnosis of Diabetes Diabetes Care 2021; 46: S19-S40. Current interpretive data was last revised 2022. Calcium 9.1 8.5 - 10.3 mg/dL [facility] Blood 03/03/2024 11:1 8 PM POLICY CHECKER 03/04/2024 12:04 AM POLICY CHECKER Cassandra Farrell NP LAB BLOOD ORDERABLES Manisha l Result Performing Organization Address City/[facility]/ZIP Co de Phone Number [facility] [place] [address] * POCT glucose (03/03/2024 9:06 PM POLICY CHECKER) [facility] Glucose, POC 82 70 - 199 mg/dL Blood 03/03/2024 9:06 PM POLICY CHECKER 03/03/2024 9:06 PM POLICY CHECKER us Migel Torres MD LAB POCT ORDERABLES - DEVICE F inal Result Performing Organization Address City/[facility]/ZIP Co de Phone Number [facility] Department [place] [address] * POCT glucose (03/03/2024 5:08 PM POLICY CHECKER) Glucose, POC 105 70 - 199 mg/dL Blood 03/03/2024 5:08 PM POLICY CHECKER 03/03/2024 5:08 PM POLICY CHECKER Migel Torres MD LAB POCT ORDERABLES - DEVICE F inal Result Performing Organization Address [facility] de Phone Number [facility] [place] [employer] [place] [address] * POCT glucose (03/03/2024 11:46 AM POLICY CHECKER) Glucose, POC 147 70 - 199 mg/dL Blood 03/03/2024 11:4 6 AM POLICY CHECKER 03/03/2024 11:46 AM POLICY CHECKER Migel Torres MD LAB POCT ORDERABLES - DEVICE F inal Result Performing Organization Address [facility] de Phone Number [facility] [place] [employer] [place] [address] * POCT glucose (03/03/2024 8:48 AM POLICY CHECKER) Glucose, POC 150 70 - 199 mg/dL Blood 03/03/2024 8:48 AM POLICY CHECKER 03/03/2024 8:48 AM POLICY CHECKER Migel Torres MD LAB POCT ORDERABLES - DEVICE F inal Result Performing Organization Address [facility] de Phone Number [facility] [place] [employer] [place] [address] * POCT glucose (03/02/2024 9:09 PM POLICY CHECKER) Glucose, POC 80 70 - 199 mg/dL Blood 03/02/2024 9:09 PM POLICY CHECKER 03/02/2024 9:09 PM POLICY CHECKER Migel Torres MD LAB POCT ORDERABLES - DEVICE F inal Result Performing Organization Address [facility] Co de Phone Number [facility] Department [place] [address] * (ABNORMAL) eGFR (03/02/2024 9:08 PM POLICY CHECKER) Pathologist [facility] eGFR 50(L) >=60 mL/min/1. 73 m2 Comment: Interpretive Data Reference Interval Normal >/= 90 mL/min/1.73m2 Mildly decreased* 60 - 89 mL/min/1.73m2 Mildly to moderately decreased 45 - 59 mL/min/1.73m2 Moderately to severely decreased 30 - 44 mL/min/1.73m2 Severely decreased 15 - 29 mL/min/1.73m2 Kidney Failure < 15 mL/min/1.73m2 *Relative to young adult level Estimated glomerular filtration rate is determined by the 2020 CKD-EPI equation recommended by the National Kidney Foundation (A Unifying Approach to GFR Estimation: Recommendations of the NKF-ASK Task Force on Reassessing the Inclusion of Race in Diagnosing Kidney Disease, JASN 2020). The CKD-EPI equation should not be used for patients with unstable renal function and has not been validated in children and those over 70. Current interpretive data was last reviewed 2020. Blood 03/02/2024 9:08 PM POLICY CHECKER 03/02/2024 10:00 PM POLICY CHECKER Cassandra Farrell NP LAB BLOOD ORDERABLES Manisha l Result Performing Organization Address City/[facility]/ZIP Co de Phone Number [facility] Department [place] [address] * (ABNORMAL) CBC without differential (03/02/2024 9:08 PM POLICY CHECKER) [facility] WBC 6.7 3.8 - 9.9 K/cumm Hgb 7.7(L) 11.9 - 15.5 g/dL [facility] Hct 25.6(L) 35.6 - 45.5 % [facility] Plt 162 150 - 400 K/cumm [facility] MPV 11.4 9.1 - 12.3 fL [facility] RBC 3.03(L) 3.90 - 5.20 M/cumm [facility] MCV 84.5 81.3 - 96.4 fL [facility] MCH 25.4(L) 27.1 - 33.3 pg [facility] MCHC 30.1(L) 32.3 - 35.7 g/dL [facility] RDW CV 19.7(H) 11.1 - 14.9 % [facility] RDW SD 58.6(H) 35.7 - 48.1 fL [facility] NRBC abs 0.00 0.00 - 0.01 K/cumm [facility] Blood 03/02/2024 9:08 PM POLICY CHECKER 03/02/2024 9:42 PM POLICY CHECKER Cassandra Farrell BACK [employer] LAB BLOOD ORDERABLES Manisha l Result [facility] [place] [address] * Phosphorus (03/02/2024 9:08 PM POLICY CHECKER) Pathologist [facility] Phosphorus, pl 3.3 2.3 - 4.5 mg/dL Blood 03/02/2024 9:08 PM POLICY CHECKER 03/02/2024 9:42 PM POLICY CHECKER Cassandra Farrell BACK [employer] LAB BLOOD ORDERABLES Manisha l Result [facility] [place] [employer] [place] [address] * Magnesium (03/02/2024 9:08 PM POLICY CHECKER) Pathologist [facility] Magnesium 2.3 1.4 - 2.5 mg/dL Blood 03/02/2024 9:08 PM POLICY CHECKER 03/02/2024 9:42 PM POLICY CHECKER Cassandra Farrell BACK [employer] LAB BLOOD ORDERABLES Manisha l Result Performing Organization Address City/[facility]/ZIP Co de Phone Number [facility] Department [place] [address] * (ABNORMAL) Basic metabolic panel (03/02/2024 9:08 PM POLICY CHECKER) [facility] Sodium 136 135 - 145 mmol/L Potassium, pl 4.1 3.3 - 4.9 mmol/L [facility] Chloride 108 97 - 110 mmol/L [facility] CO2 25 22 - 32 mmol/L [facility] Anion gap 3 2 - 15 mmol/L [facility] BUN 31(H) 6 - 25 mg/dL [facility] Creatinine 1.11(H) 0.60 - 1.10 mg/dL [facility] Glucose 85 70 - 199 mg/dL [facility] Comment: Interpretive Data Fasting glucose >/= 126 mg/dl is diagnostic for diabetes. Fasting is defined as no caloric intake for at least 8 hours. Fasting glucose between 100 mg/dl to 125 mg/dl is diagnostic of prediabetes. In a patient with classic symptoms of hyperglycemia or hyperglycemic crisis, a random glucose >/= 200 mg/dl is diagnostic for diabetes. In the absence of unequivocal hyperglycemia, results should be confirmed by repeat testing. The classification and Diagnosis of Diabetes Diabetes Care 202; 46: S19-S40. Current interpretive data was last revised 2022. Calcium 8.6 8.5 - 10.3 mg/dL [facility] Blood 03/02/2024 9:08 PM POLICY CHECKER 03/02/2024 9:42 PM POLICY CHECKER Cassandra Farrell BACK [employer] LAB BLOOD ORDERABLES Manisha l Result Performing Organization Address [facility]/ZIP Co de Phone Number [facility] Department [place] [address] * XR Chest 1 View (03/02/2024 6:42 PM POLICY CHECKER) Anatomical Region Laterality Modality Body, Chest N/A Computed Radiogr aphy 03/03/2024 7:09 AM POLICY CHECKER Impressions 03/03/2024 7:09 AM POLICY CHECKER Comparison 03/02/2024 10:16 AM. Tracheostomy tube remains in place. Right peripherally inserted central venous catheter tip overlies the right atrium. Right basilar pleural catheter and right upper quadrant drain again seen. Moderate-sized partially loculated right basilar pleural effusion with underlying atelectasis again seen. The left lung is clear. No pneumothorax seen. Cardiomediastinal silhouette stable. Electronically signed by: Manny Wolfe M.D. Narrative 03/03/2024 7:09 AM POLICY CHECKER EXAMINATION: 1 view chest radiograph Procedure Note Manny Wolfe MD - 03/03/2024 EXAMINATION: 1 view chest radiograph IMPRESSION: Comparison 03/02/2024 10:16 AM. Tracheostomy tube remains in place. Right peripherally inserted central venous catheter tip overlies the right atrium. Right basilar pleural catheter and right upper quadrant drain again seen. Moderate-sized partially loculated right basilar pleural effusion with underlying atelectasis again seen. The left lung is clear. No pneumothorax seen. Cardiomediastinal silhouette stable. Electronically signed by: Manny Wolfe M.D. us Gianni Sweeney MD IMG XR PROCEDURES Final Result * POCT glucose (03/02/2024 4:35 PM POLICY CHECKER) [facility] Glucose, POC 96 70 - 199 mg/dL Blood 03/02/2024 4:35 PM POLICY CHECKER 03/02/2024 4:35 PM POLICY CHECKER us Migel Torres MD LAB POCT ORDERABLES - DEVICE F inal Result [facility] Department [place] [address] * POCT glucose (03/02/2024 12:33 PM POLICY CHECKER) Glucose, POC 133 70 - 199 mg/dL Blood 03/02/2024 12:3 3 PM POLICY CHECKER 03/02/2024 12:33 PM POLICY CHECKER Migel Torres MD LAB POCT ORDERABLES - DEVICE F inal Result Performing Organization Address City/[facility]/ZIP Co de Phone Number [facility] [place] [address] * C. difficile testing Stool (03/02/2024 11:17 AM POLICY CHECKER) Pathologist [facility] Result Negative Negative Toxin Result Negative Negative [facility] C. diff result Negative, free toxin Negative, free toxin [facility] C. diff interp Negative for toxigenic Clostridioides (Clostridium) difficile. Analysis was performed using a glutamate dehydrogenase antigen detection assay combined with a C. difficile toxin detection assay. [facility] Stool 03/02/2024 11:1 7 AM POLICY CHECKER 03/02/2024 1:56 PM POLICY CHECKER Migel Torres MD LAB MICROBIOLOGY - GENERAL ORD ERABLES Final Result Performing Organization Address [facility] Co de Phone Number [facility] Department [place] [address] * Infection Prevention VRE Culture Stool (03/02/2024 11:17 AM POLICY CHECKER) Pathologist [facility] Report Final Report: Negative Stool 03/02/2024 11:1 7 AM POLICY CHECKER 03/02/2024 2:11 PM POLICY CHECKER Narrative [facility] - 03/04/2024 3:53 PM POLICY CHECKER Surveillance culture for Infection Prevention purposes only; results indicate colonization, not infection requiring treatment. Testing performed by [facility] ([phone]). Migel Torres MD LAB MICROBIOLOGY - GENERAL ORD ERABLES Final Result [facility] [place] [address] * XR Chest 1 View (03/02/2024 10:26 AM POLICY CHECKER) Anatomical Region Laterality Modality Body, Chest N/A Computed Radiogr aphy 03/02/2024 11:3 6 AM POLICY CHECKER Impressions 03/02/2024 12:02 PM POLICY CHECKER The current study is compared with the prior radiograph dated 02/27/[address] 02/29/2024. Tracheostomy in the midthoracic trachea. Right pigtail thoracostomy tube. Right upper quadrant drain is partially imaged. Right peripherally inserted central venous catheter tip terminates over the right atrium. Coronary artery stents. Unchanged small right loculated pleural effusion with associated atelectasis. No pneumothorax. The left lung is clear. Stable cardiomediastinal silhouette. Dictated by: Roney Ruiz M.D. The radiology attending physician has personally reviewed this study, and had reviewed and/or edited this written report and agrees with it. Electronically signed by: Valarie Gibson M.D. Narrative 03/02/2024 12:02 PM POLICY CHECKER EXAMINATION: 1 view chest radiograph Procedure Note Valarie Gibson MD - 03/02/2024 EXAMINATION: 1 view chest radiograph IMPRESSION: The current study is compared with the prior radiograph dated 02/27/[address] 02/29/2024. Tracheostomy in the midthoracic trachea. Right pigtail thoracostomy tube. Right upper quadrant drain is partially imaged. Right peripherally inserted central venous catheter tip terminates over the right atrium. Coronary artery stents. Unchanged small right loculated pleural effusion with associated atelectasis. No pneumothorax. The left lung is clear. Stable cardiomediastinal silhouette. Dictated by: Roney Ruiz M.D. The radiology attending physician has personally reviewed this study, and had reviewed and/or edited this written report and agrees with it. Electronically signed by: Valarie Gibson M.D. Cassandra Farrell NP IMG XR PROCEDURES Final R esult * POCT glucose (03/02/2024 8:21 AM POLICY CHECKER) Glucose, POC 152 70 - 199 mg/dL Blood 03/02/2024 8:21 AM POLICY CHECKER 03/02/2024 8:21 AM POLICY CHECKER Migel Torres MD LAB POCT ORDERABLES - DEVICE F inal Result Performing Organization Address [facility] Co de Phone Number [facility] Department [place] [address] * (ABNORMAL) eGFR (03/02/2024 12:06 AM POLICY CHECKER) Pathologist [facility] eGFR 48(L) >=60 mL/min/1. 73 m2 Comment: Interpretive Data Reference Interval Normal >/= 90 mL/min/1.73m2 Mildly decreased* 60 - 89 mL/min/1.73m2 Mildly to moderately decreased 45 - 59 mL/min/1.73m2 Moderately to severely decreased 30 - 44 mL/min/1.73m2 Severely decreased 15 - 29 mL/min/1.73m2 Kidney Failure < 15 mL/min/1.73m2 *Relative to young adult level Estimated glomerular filtration rate is determined by the 2020 CKD-EPI equation recommended by the National Kidney Foundation (A Unifying Approach to GFR Estimation: Recommendations of the NKF-ASK Task Force on Reassessing the Inclusion of Race in Diagnosing Kidney Disease, JASN 2020). The CKD-EPI equation should not be used for patients with unstable renal function and has not been validated in children and those over 70. Current interpretive data was last reviewed 2020. Blood 03/02/2024 12:0 6 AM POLICY CHECKER 03/02/2024 1:16 AM POLICY CHECKER us Meche Logan NP LAB BLOOD ORDERABLES Final Res ult Performing Organization Address [facility]/ZIP Co de Phone Number [facility] Department [place] [address] * (ABNORMAL) CBC without differential (03/02/2024 12:06 AM POLICY CHECKER) WBC 7.4 3.8 - 9.9 K/cumm Hgb 8.0(L) 11.9 - 15.5 g/dL [facility] Hct 26.4(L) 35.6 - 45.5 % [facility] Plt 173 150 - 400 K/cumm [facility] MPV 10.3 9.1 - 12.3 fL [facility] RBC 3.17(L) 3.90 - 5.20 M/cumm [facility] MCV 83.3 81.3 - 96.4 fL [facility] MCH 25.2(L) 27.1 - 33.3 pg [facility] MCHC 30.3(L) 32.3 - 35.7 g/dL [facility] RDW CV 19.3(H) 11.1 - 14.9 % [facility] RDW SD 58.1(H) 35.7 - 48.1 fL [facility] NRBC abs 0.00 0.00 - 0.01 K/cumm [facility] Blood 03/02/2024 12:0 6 AM POLICY CHECKER 03/02/2024 1:16 AM POLICY CHECKER Meche Logan [employer] LAB BLOOD ORDERABLES Final Res ult Performing Organization Address [facility] Co de Phone Number [facility] [place] [address] * Phosphorus (03/02/2024 12:06 AM POLICY CHECKER) Pathologist [facility] Phosphorus, pl 3.8 2.3 - 4.5 mg/dL Blood 03/02/2024 12:0 6 AM POLICY CHECKER 03/02/2024 1:16 AM POLICY CHECKER Meche Logan BACK [employer] LAB BLOOD ORDERABLES Final Res ult Performing Organization Address City/[facility] Co de Phone Number [facility] Department [place] [address] * Magnesium (03/02/2024 12:06 AM POLICY CHECKER) Pathologist [facility] Magnesium 2.3 1.4 - 2.5 mg/dL Blood 03/02/2024 12:0 6 AM POLICY CHECKER 03/02/2024 1:16 AM POLICY CHECKER Meche Logan NP LAB BLOOD ORDERABLES Final Res ult [facility] Department [place] [address] * (ABNORMAL) Basic metabolic panel (03/02/2024 12:06 AM POLICY CHECKER) Pathologist [facility] Sodium 137 135 - 145 mmol/L Potassium, pl 4.2 3.3 - 4.9 mmol/L [facility] Chloride 105 97 - 110 mmol/L [facility] CO2 27 22 - 32 mmol/L [facility] Anion gap 5 2 - 15 mmol/L [facility] BUN 30(H) 6 - 25 mg/dL [facility] Creatinine 1.14(H) 0.60 - 1.10 mg/dL [facility] Glucose 90 70 - 199 mg/dL [facility] Comment: Interpretive Data Fasting glucose >/= 126 mg/dl is diagnostic for diabetes. Fasting is defined as no caloric intake for at least 8 hours. Fasting glucose between 100 mg/dl to 125 mg/dl is diagnostic of prediabetes. In a patient with classic symptoms of hyperglycemia or hyperglycemic crisis, a random glucose >/= 200 mg/dl is diagnostic for diabetes. In the absence of unequivocal hyperglycemia, results should be confirmed by repeat testing. The classification and Diagnosis of Diabetes Diabetes Care 202; 46: S19-S40. Current interpretive data was last revised 2022. Calcium 8.7 8.5 - 10.3 mg/dL [facility] Blood 03/02/2024 12:0 6 AM POLICY CHECKER 03/02/2024 1:16 AM POLICY CHECKER Meche A. Logan [employer] LAB BLOOD ORDERABLES Final Res ult Performing Organization Address [facility] [place] [address] * POCT glucose (03/01/2024 8:18 PM POLICY CHECKER) Glucose, POC 107 70 - 199 mg/dL Blood 03/01/2024 8:18 PM POLICY CHECKER 03/01/2024 8:18 PM POLICY CHECKER Migel Torres MD LAB POCT ORDERABLES - DEVICE F inal Result Performing Organization Address [facility] [place] [address] * POCT glucose (03/01/2024 6:39 PM POLICY CHECKER) Glucose, POC 118 70 - 199 mg/dL Blood 03/01/2024 6:39 PM POLICY CHECKER 03/01/2024 6:39 PM POLICY CHECKER Migel Torres MD LAB POCT ORDERABLES - DEVICE F inal Result Performing Organization Address [facility] Co de Phone Number [facility] [place] [address] * IR Abscess Tube Exchange (03/01/2024 12:40 PM POLICY CHECKER) Anatomical Region Laterality Modality Body N/A X-Ray Angiograph y 03/01/2024 2:01 PM POLICY CHECKER Impressions 03/02/2024 1:04 PM POLICY CHECKER 1. Stable right pleural fluid collection. The right pleural catheter was exchanged and injected with TPA to facilitate drainage. 2. Decreased size of a right perihepatic fluid collection. The right upper quadrant catheter was upsized to facilitate drainage. PLAN: Continue to monitor catheter output as well as the patient's clinical condition. The catheters should not be flushed. If questions arise, please contact us by calling [phone]. Dictated by: Roxanne Perez MD, PhD. The radiology attending physician has personally reviewed this study, and had reviewed and/or edited this written report and agrees with it. Electronically signed by: Aman Calabrese M.D. Narrative 03/02/2024 1:04 PM POLICY CHECKER EXAMINATION: DRAINAGE CATHETER EVALUATION, TPA INJECTION, AND EXCHANGE HISTORY: 83-year-old female with a history of colon cancer post ileocolic resection in the and most recently with distal transverse colon mass post near subtotal complete colectomy and small bowel resection on 01/05 complicated by perihepatic collection post IR drain placement 01/18, removed 02/10 with reaccumulation of fluid and replacement with 10 Fr cope loop 02/24, loculated right pleural effusion post 12 Fr locking loop multipurpose drain placed by IR on 02/23. Chest tube has drained 110 mL dark serosanguinous output since placement. CT 02/28 with persistent right empyema. Patient presenting for drain check and possible exchange. ATTENDING PRESENCE: Aman Calabrese M.D., the attending radiologist, was present from the beginning to the end of the procedure. SEDATION: Procedural sedation was administered under the attending physician's direction and continuous monitoring by a trained nurse specialist who was independent from those actually performing the procedure. Total monitored sedation time was 52 minutes. TECHNIQUE: Prior to beginning the procedure, [place] Protocol was used to confirm the patient's identity and planned procedure. Fluoroscopy time has been recorded in the electronic medical record. Maximum sterile barriers including cap, mask, hand hygiene, sterile gloves, sterile gown, large sterile drape and 2% chlorhexidine for cutaneous antisepsis were used. After obtaining a twister operator image, the right chest catheter was injected with dilute contrast and multiple diagnostic fluoroscopic spot images were obtained. The skin overlying the collection was sterilely prepped, draped and infiltrated with 1% buffered lidocaine. The existing 12-Tuvaluan catheter was then exchanged over a Bentson guidewire for a new 12-Tuvaluan catheter. Limited contrast injection confirmed appropriate placement of the catheter. The catheter was then injected with 2 mg of TPA and allowed to remain within the catheter for 15 minutes prior to suctioning. The catheter was secured in place with a Prolene stitch and connected to suction drainage. A sterile dressing was applied. Attention was then turned to the right upper abdomen drain. The skin overlying the collection was sterilely prepped, draped and infiltrated with 1% buffered lidocaine. The existing 10-Tuvaluan cope loop catheter was then exchanged over a Bentson guidewire for a new 12-Tuvaluan catheter. Limited contrast injection confirmed appropriate placement of the catheter. The catheter was secured in place with a Prolene stitch and connected to gravity drainage. A sterile dressing was applied. ESTIMATED BLOOD LOSS: Minimal. CONDITION: Stable DISCHARGED TO: Recovery and then to Inpatient unit. FINDINGS: 1. Images from the right chest catheter injection demonstrate a persistent right pleural fluid collection. The catheter was not draining. 2. Images from the right upper quadrant catheter injection demonstrated a small persistent right perihepatic collection. The catheter was draining serosanguineous fluid. Procedure Note Aman Calabrese MD PhD - 03/02/2024 EXAMINATION: DRAINAGE CATHETER EVALUATION, TPA INJECTION, AND EXCHANGE HISTORY: 83-year-old female with a history of colon cancer post ileocolic resection in the and most recently with distal transverse colon mass post near subtotal complete colectomy and small bowel resection on 01/05 complicated by perihepatic collection post IR drain placement 01/18, removed 02/10 with reaccumulation of fluid and replacement with 10 Fr cope loop 02/24, loculated right pleural effusion post 12 Fr locking loop multipurpose drain placed by IR on 02/23. Chest tube has drained 110 mL dark serosanguinous output since placement. CT 02/28 with persistent right empyema. Patient presenting for drain check and possible exchange. ATTENDING PRESENCE: Aman Calabrese M.D., the attending radiologist, was present from the beginning to the end of the procedure. SEDATION: Procedural sedation was administered under the attending physician's direction and continuous monitoring by a trained nurse specialist who was independent from those actually performing the procedure. Total monitored sedation time was 52 minutes. TECHNIQUE: Prior to beginning the procedure, [place] Protocol was used to confirm the patient's identity and planned procedure. Fluoroscopy time has been recorded in the electronic medical record. Maximum sterile barriers including cap, mask, hand hygiene, sterile gloves, sterile gown, large sterile drape and 2% chlorhexidine for cutaneous antisepsis were used. After obtaining a twister operator image, the right chest catheter was injected with dilute contrast and multiple diagnostic fluoroscopic spot images were obtained. The skin overlying the collection was sterilely prepped, draped and infiltrated with 1% buffered lidocaine. The existing 12-Tuvaluan catheter was then exchanged over a Bentson guidewire for a new 12-Tuvaluan catheter. Limited contrast injection confirmed appropriate placement of the catheter. The catheter was then injected with 2 mg of TPA and allowed to remain within the catheter for 15 minutes prior to suctioning. The catheter was secured in place with a Prolene stitch and connected to suction drainage. A sterile dressing was applied. Attention was then turned to the right upper abdomen drain. The skin overlying the collection was sterilely prepped, draped and infiltrated with 1% buffered lidocaine. The existing 10-Tuvaluan cope loop catheter was then exchanged over a Bentson guidewire for a new 12-Tuvaluan catheter. Limited contrast injection confirmed appropriate placement of the catheter. The catheter was secured in place with a Prolene stitch and connected to gravity drainage. A sterile dressing was applied. ESTIMATED BLOOD LOSS: Minimal. CONDITION: Stable DISCHARGED TO: Recovery and then to Inpatient unit. FINDINGS: 1. Images from the right chest catheter injection demonstrate a persistent right pleural fluid collection. The catheter was not draining. 2. Images from the right upper quadrant catheter injection demonstrated a small persistent right perihepatic collection. The catheter was draining serosanguineous fluid. IMPRESSION: 1. Stable right pleural fluid collection. The right pleural catheter was exchanged and injected with TPA to facilitate drainage. 2. Decreased size of a right perihepatic fluid collection. The right upper quadrant catheter was upsized to facilitate drainage. PLAN: Continue to monitor catheter output as well as the patient's clinical condition. The catheters should not be flushed. If questions arise, please contact us by calling [phone]. Dictated by: Roxanne Perez MD, PhD. The radiology attending physician has personally reviewed this study, and had reviewed and/or edited this written report and agrees with it. Electronically signed by: Aman Calabrese M.D. Cassandra Farrell NP IMG IR PROCEDURES Final R esult * (ABNORMAL) eGFR (02/29/2024 10:12 PM POLICY CHECKER) eGFR 58(L) >=60 mL/min/1. 73 m2 Comment: Interpretive Data Reference Interval Normal >/= 90 mL/min/1.73m2 Mildly decreased* 60 - 89 mL/min/1.73m2 Mildly to moderately decreased 45 - 59 mL/min/1.73m2 Moderately to severely decreased 30 - 44 mL/min/1.73m2 Severely decreased 15 - 29 mL/min/1.73m2 Kidney Failure < 15 mL/min/1.73m2 *Relative to young adult level Estimated glomerular filtration rate is determined by the 2020 CKD-EPI equation recommended by the National Kidney Foundation (A Unifying Approach to GFR Estimation: Recommendations of the NKF-ASK Task Force on Reassessing the Inclusion of Race in Diagnosing Kidney Disease, JASN 2020). The CKD-EPI equation should not be used for patients with unstable renal function and has not been validated in children and those over 70. Current interpretive data was last reviewed 2020. Blood 02/29/2024 10:1 2 PM POLICY CHECKER 02/29/2024 10:37 PM POLICY CHECKER us iMgel Torres MD LAB BLOOD ORDERABLES Final Res ult [facility] [place] [address] * (ABNORMAL) CBC without differential (02/29/2024 10:12 PM POLICY CHECKER) WBC 8.2 3.8 - 9.9 K/cumm Hgb 8.5(L) 11.9 - 15.5 g/dL [facility] Hct 27.2(L) 35.6 - 45.5 % [facility] Plt 178 150 - 400 K/cumm [facility] MPV 10.2 9.1 - 12.3 fL [facility] RBC 3.32(L) 3.90 - 5.20 M/cumm [facility] MCV 81.9 81.3 - 96.4 fL [facility] MCH 25.6(L) 27.1 - 33.3 pg [facility] MCHC 31.3(L) 32.3 - 35.7 g/dL [facility] RDW CV 19.0(H) 11.1 - 14.9 % [facility] RDW SD 55.7(H) 35.7 - 48.1 fL [facility] NRBC abs 0.00 0.00 - 0.01 K/cumm [facility] Blood 02/29/2024 10:1 2 PM POLICY CHECKER 02/29/2024 10:38 PM POLICY CHECKER Migel Torres MD LAB BLOOD ORDERABLES Final Res ult Performing Organization Address City/State/[facility] Co de Phone Number [facility] [place] [employer] [place] [address] * Phosphorus (02/29/2024 10:12 PM POLICY CHECKER) Phosphorus, pl 3.1 2.3 - 4.5 mg/dL Blood 02/29/2024 10:1 2 PM POLICY CHECKER 02/29/2024 10:37 PM POLICY CHECKER Migel Torres MD LAB BLOOD ORDERABLES Final Res ult Performing Organization Address [facility] Co de Phone Number [facility] [place] [employer] [place] [address] * Magnesium (02/29/2024 10:12 PM POLICY CHECKER) Magnesium 2.4 1.4 - 2.5 mg/dL Blood 02/29/2024 10:1 2 PM POLICY CHECKER 02/29/2024 10:37 PM POLICY CHECKER Migel Torres MD LAB BLOOD ORDERABLES Final Res ult Performing Organization Address [facility] Co de Phone Number [facility] [place] [employer] [place] [address] * (ABNORMAL) Hepatic function panel (02/29/2024 10:12 PM POLICY CHECKER) Bilirubin, total 0.3 0.1 - 1.2 mg/dL Bilirubin, direct <0.2 0.1 - 0.3 mg/dL [facility] Protein, pl 7.4 6.5 - 8.5 g/dL [facility] Albumin 1.9(L) 3.5 - 5.0 g/dL [facility] Alk phos 183(H) 40 - 130 Units/L [facility] ALT 18 7 - 45 Units/L [facility] AST 38 10 - 45 Units/L [facility] Blood 02/29/2024 10:1 2 PM POLICY CHECKER 02/29/2024 10:37 PM POLICY CHECKER us Migel Torres MD LAB BLOOD ORDERABLES Final Res ult [facility] Department [place] [address] * (ABNORMAL) Basic metabolic panel (02/29/2024 10:12 PM POLICY CHECKER) Sodium 139 135 - 145 mmol/L Potassium, pl 4.8 3.3 - 4.9 mmol/L [facility] Chloride 106 97 - 110 mmol/L [facility] CO2 27 22 - 32 mmol/L [facility] Anion gap 6 2 - 15 mmol/L [facility] BUN 26(H) 6 - 25 mg/dL [facility] Creatinine 0.98 0.60 - 1.10 mg/dL [facility] Glucose 87 70 - 199 mg/dL [facility] Comment: Interpretive Data Fasting glucose >/= 126 mg/dl is diagnostic for diabetes. Fasting is defined as no caloric intake for at least 8 hours. Fasting glucose between 100 mg/dl to 125 mg/dl is diagnostic of prediabetes. In a patient with classic symptoms of hyperglycemia or hyperglycemic crisis, a random glucose >/= 200 mg/dl is diagnostic for diabetes. In the absence of unequivocal hyperglycemia, results should be confirmed by repeat testing. The classification and Diagnosis of Diabetes Diabetes Care 202; 46: S19-S40. Current interpretive data was last revised 2022. Calcium 8.7 8.5 - 10.3 mg/dL [facility] Blood 02/29/2024 10:1 2 PM POLICY CHECKER 02/29/2024 10:37 PM POLICY CHECKER Migel Torres MD LAB BLOOD ORDERABLES Final Res ult Performing Organization Address City/[facility]/ZIP Co de Phone Number [facility] [place] [address] * POCT glucose (02/29/2024 8:47 PM POLICY CHECKER) Glucose, POC 118 70 - 199 mg/dL Blood 02/29/2024 8:47 PM POLICY CHECKER 02/29/2024 8:47 PM POLICY CHECKER Migel Torres MD LAB POCT ORDERABLES - DEVICE F inal Result Performing Organization Address [facility] Co de Phone Number [facility] Department [place] [address] * CT Chest Abdomen Pelvis W Contrast (02/29/2024 5:24 PM POLICY CHECKER) Anatomical Region Laterality Modality Body N/A Computed Tomogra phy 03/01/2024 9:19 AM POLICY CHECKER Impressions 03/01/2024 2:08 PM POLICY CHECKER 1. Interval placement of right chest tube with interval decrease in size of fluid and gas collection consistent with decreased empyema. There is persistent residual collection measuring approximately 2.1 cm in thickness. Recommend correlation with drain function. 2. Interval placement of right upper quadrant drain with substantial decrease in perihepatic fluid and gas collection, now with minimal collection tracking along the right paracolic gutter. 3. Postsurgical changes of subtotal colectomy with ileocolic anastomosis. No extraluminal contrast to suggest leak. 4. Regions of hypoattenuation within the left kidney, most likely secondary to infarcts. Recommend correlation with urinalysis to exclude pyelonephritis. Dictated by: Parish Vieyra MD The radiology attending physician has personally reviewed this study, and had reviewed and/or edited this written report and agrees with it. Electronically signed by: Gianni Ulloa M.D., Ph.D Narrative 03/01/2024 2:08 PM POLICY CHECKER EXAMINATION: Computed tomography of the chest, abdomen and pelvis with intravenous contrast HISTORY: Evaluate for presence of enteric leak at enterocolic anastomosis. TECHNIQUE: Transaxial computed tomographic images of the chest, abdomen and pelvis were obtained with intravenous contrast according to the standard protocol after the uneventful administration of 68 mL Opti-Ray 350 intravenous contrast. COMPARISON: 02/23/2024 FINDINGS: Chest: Multiple hypoattenuating nodules within the thyroid gland, the largest of which measures 1 cm. Tracheostomy tube. Heart size is enlarged. Peripherally inserted central venous catheter and central venous catheter terminating within the right atrium. Heart size is enlarged. No suspicious thoracic lymphadenopathy. Interval decrease of previously seen fluid and gas collection within right lung base with interval placement of chest tube, consistent with decreased empyema. There is persistent collection measuring approximately 8.1 x 2.1 cm, previously 9.5 x 3.2 cm. Atelectasis involving the left lung base. Abdomen/Pelvis: Interval placement of a right upper quadrant drain with interval substantial decrease in perihepatic fluid and gas collection. Interval improvement in intrahepatic and extrahepatic as well as pancreatic duct dilatation. Cholecystectomy. The spleen and adrenal glands are normal. Regions of hypoattenuation within the left kidney. Right kidney is normal. Calcifications involving the bilateral kidneys. No hydronephrosis. Urinary bladder is normal. Postsurgical changes of subtotal colectomy and ileocolic anastomosis. No extraluminal contrast to suggest leak. There is a small amount of fluid tracking along the paracolic gutter, residual perihepatic fluid collection. There is body wall edema. No suspicious abdominopelvic lymphadenopathy. 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 Chronic compression deformities involving the spine. No suspicious osseous lesion. Procedure Note Gianni Ulloa MD PhD - 03/01/2024 EXAMINATION: Computed tomography of the chest, abdomen and pelvis with intravenous contrast HISTORY: Evaluate for presence of enteric leak at enterocolic anastomosis. TECHNIQUE: Transaxial computed tomographic images of the chest, abdomen and pelvis were obtained with intravenous contrast according to the standard protocol after the uneventful administration of 68 mL Opti-Ray 350 intravenous contrast. COMPARISON: 02/23/2024 FINDINGS: Chest: Multiple hypoattenuating nodules within the thyroid gland, the largest of which measures 1 cm. Tracheostomy tube. Heart size is enlarged. Peripherally inserted central venous catheter and central venous catheter terminating within the right atrium. Heart size is enlarged. No suspicious thoracic lymphadenopathy. Interval decrease of previously seen fluid and gas collection within right lung base with interval placement of chest tube, consistent with decreased empyema. There is persistent collection measuring approximately 8.1 x 2.1 cm, previously 9.5 x 3.2 cm. Atelectasis involving the left lung base. Abdomen/Pelvis: Interval placement of a right upper quadrant drain with interval substantial decrease in perihepatic fluid and gas collection. Interval improvement in intrahepatic and extrahepatic as well as pancreatic duct dilatation. Cholecystectomy. The spleen and adrenal glands are normal. Regions of hypoattenuation within the left kidney. Right kidney is normal. Calcifications involving the bilateral kidneys. No hydronephrosis. Urinary bladder is normal. Postsurgical changes of subtotal colectomy and ileocolic anastomosis. No extraluminal contrast to suggest leak. There is a small amount of fluid tracking along the paracolic gutter, residual perihepatic fluid collection. There is body wall edema. No suspicious abdominopelvic lymphadenopathy. 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 Chronic compression deformities involving the spine. No suspicious osseous lesion. IMPRESSION: 1. Interval placement of right chest tube with interval decrease in size of fluid and gas collection consistent with decreased empyema. There is persistent residual collection measuring approximately 2.1 cm in thickness. Recommend correlation with drain function. 2. Interval placement of right upper quadrant drain with substantial decrease in perihepatic fluid and gas collection, now with minimal collection tracking along the right paracolic gutter. 3. Postsurgical changes of subtotal colectomy with ileocolic anastomosis. No extraluminal contrast to suggest leak. 4. Regions of hypoattenuation within the left kidney, most likely secondary to infarcts. Recommend correlation with urinalysis to exclude pyelonephritis. Dictated by: Parish Vieyra MD The radiology attending physician has personally reviewed this study, and had reviewed and/or edited this written report and agrees with it. Electronically signed by: Gianni Ulloa M.D., Ph.D Migel Torres MD IMG CT PROCEDURES Final Result * POCT glucose (02/29/2024 4:58 PM POLICY CHECKER) Glucose, POC 124 70 - 199 mg/dL Blood 02/29/2024 4:58 PM POLICY CHECKER 02/29/2024 4:58 PM POLICY CHECKER Migel Torres MD LAB POCT ORDERABLES - DEVICE F inal Result Performing Organization Address City/[facility] Co de Phone Number [facility] [place] [employer] [place] [address] * POCT glucose (02/29/2024 12:21 PM POLICY CHECKER) Glucose, POC 123 70 - 199 mg/dL Blood 02/29/2024 12:2 1 PM POLICY CHECKER 02/29/2024 12:21 PM POLICY CHECKER Migel Torres MD LAB POCT ORDERABLES - DEVICE F inal Result Performing Organization Address [facility] de Phone Number [facility] [place] [employer] [place] [address] * POCT glucose (02/29/2024 8:23 AM POLICY CHECKER) Glucose, POC 123 70 - 199 mg/dL Blood 02/29/2024 8:23 AM POLICY CHECKER 02/29/2024 8:23 AM POLICY CHECKER Migel Torres MD LAB POCT ORDERABLES - DEVICE F inal Result Performing Organization Address [facility] de Phone Number [facility] [place] [employer] [place] [address] * eGFR (02/28/2024 9:37 PM POLICY CHECKER) eGFR 62 >=60 mL/min/1. 73 m2 Comment: Interpretive Data Reference Interval Normal >/= 90 mL/min/1.73m2 Mildly decreased* 60 - 89 mL/min/1.73m2 Mildly to moderately decreased 45 - 59 mL/min/1.73m2 Moderately to severely decreased 30 - 44 mL/min/1.73m2 Severely decreased 15 - 29 mL/min/1.73m2 Kidney Failure < 15 mL/min/1.73m2 *Relative to young adult level Estimated glomerular filtration rate is determined by the 2020 CKD-EPI equation recommended by the National Kidney Foundation (A Unifying Approach to GFR Estimation: Recommendations of the NKF-ASK Task Force on Reassessing the Inclusion of Race in Diagnosing Kidney Disease, JASN 2020). The CKD-EPI equation should not be used for patients with unstable renal function and has not been validated in children and those over 70. Current interpretive data was last reviewed 2020. Blood 02/28/2024 9:37 PM POLICY CHECKER 02/28/2024 9:53 PM POLICY CHECKER us Migel Torres MD LAB BLOOD ORDERABLES Final Res ult [facility] Department [place] [address] * (ABNORMAL) CBC without differential (02/28/2024 9:37 PM POLICY CHECKER) WBC 7.4 3.8 - 9.9 K/cumm Hgb 7.9(L) 11.9 - 15.5 g/dL [facility] Hct 25.9(L) 35.6 - 45.5 % [facility] Plt 170 150 - 400 K/cumm [facility] MPV 9.5 9.1 - 12.3 fL [facility] RBC 3.12(L) 3.90 - 5.20 M/cumm [facility] MCV 83.0 81.3 - 96.4 fL [facility] MCH 25.3(L) 27.1 - 33.3 pg [facility] MCHC 30.5(L) 32.3 - 35.7 g/dL [facility] RDW CV 19.0(H) 11.1 - 14.9 % [facility] RDW SD 56.6(H) 35.7 - 48.1 fL [facility] NRBC abs 0.00 0.00 - 0.01 K/cumm [facility] Blood 02/28/2024 9:37 PM POLICY CHECKER 02/28/2024 9:54 PM POLICY CHECKER Migel Torres MD LAB BLOOD ORDERABLES Final Res ult Performing Organization Address City/[facility]/ZIP Co de Phone Number [facility] [place] [employer] [place] [address] * Phosphorus (02/28/2024 9:37 PM POLICY CHECKER) Pathologist [facility] Phosphorus, pl 3.0 2.3 - 4.5 mg/dL Blood 02/28/2024 9:37 PM POLICY CHECKER 02/28/2024 9:53 PM POLICY CHECKER Migel Torres MD LAB BLOOD ORDERABLES Final Res ult Performing Organization Address [facility] Co de Phone Number [facility] [place] [employer] [place] [address] * Magnesium (02/28/2024 9:37 PM POLICY CHECKER) Pathologist [facility] Magnesium 2.2 1.4 - 2.5 mg/dL Blood 02/28/2024 9:37 PM POLICY CHECKER 02/28/2024 9:53 PM POLICY CHECKER Migel Torres MD LAB BLOOD ORDERABLES Final Res ult Performing Organization Address City/[facility] Co de Phone Number [facility] [place] [employer] [place] [address] * (ABNORMAL) Basic metabolic panel (02/28/2024 9:37 PM POLICY CHECKER) Sodium 141 135 - 145 mmol/L Potassium, pl 4.3 3.3 - 4.9 mmol/L [facility] Chloride 109 97 - 110 mmol/L [facility] CO2 27 22 - 32 mmol/L [facility] Anion gap 5 2 - 15 mmol/L [facility] BUN 25 6 - 25 mg/dL [facility] Creatinine 0.93 0.60 - 1.10 mg/dL [facility] Glucose 114 70 - 199 mg/dL [facility] Comment: Interpretive Data Fasting glucose >/= 126 mg/dl is diagnostic for diabetes. Fasting is defined as no caloric intake for at least 8 hours. Fasting glucose between 100 mg/dl to 125 mg/dl is diagnostic of prediabetes. In a patient with classic symptoms of hyperglycemia or hyperglycemic crisis, a random glucose >/= 200 mg/dl is diagnostic for diabetes. In the absence of unequivocal hyperglycemia, results should be confirmed by repeat testing. The classification and Diagnosis of Diabetes Diabetes Care 202; 46: S19-S40. Current interpretive data was last revised 2022. Calcium 8.4(L) 8.5 - 10.3 mg/dL [facility] Blood 02/28/2024 9:37 PM POLICY CHECKER 02/28/2024 9:53 PM POLICY CHECKER us Migel Torres MD LAB BLOOD ORDERABLES Final Res ult [facility] [place] [employer] [place] [address] * POCT glucose (02/28/2024 8:33 PM POLICY CHECKER) [facility] Glucose, POC 122 70 - 199 mg/dL Blood 02/28/2024 8:33 PM POLICY CHECKER 02/28/2024 8:33 PM POLICY CHECKER Migel Torres MD LAB POCT ORDERABLES - DEVICE F inal Result Performing Organization Address City/[facility]/ZIP Co de Phone Number [facility] Department [place] [address] * POCT glucose (02/28/2024 4:38 PM POLICY CHECKER) Glucose, POC 125 70 - 199 mg/dL Blood 02/28/2024 4:38 PM POLICY CHECKER 02/28/2024 4:38 PM POLICY CHECKER Migel Torres MD LAB POCT ORDERABLES - DEVICE F inal Result Performing Organization Address [facility] de Phone Number [facility] [place] [address] * POCT glucose (02/28/2024 12:59 PM POLICY CHECKER) Glucose, POC 173 70 - 199 mg/dL Blood 02/28/2024 12:5 9 PM POLICY CHECKER 02/28/2024 12:59 PM POLICY CHECKER Migel Torres MD LAB POCT ORDERABLES - DEVICE F inal Result Performing Organization Address [facility] [place] de Phone Number [facility] [place] [employer] [place] [address] * POCT glucose (02/28/2024 11:42 AM POLICY CHECKER) Glucose, POC 155 70 - 199 mg/dL Blood 02/28/2024 11:4 2 AM POLICY CHECKER 02/28/2024 11:42 AM POLICY CHECKER Migel Torres MD LAB POCT ORDERABLES - DEVICE F inal Result Performing Organization Address [facility] [place] de Phone Number [facility] [place] [address] * POCT glucose (02/28/2024 7:54 AM POLICY CHECKER) Glucose, POC 131 70 - 199 mg/dL Blood 02/28/2024 7:54 AM POLICY CHECKER 02/28/2024 7:54 AM POLICY CHECKER us Migel Torres MD LAB POCT ORDERABLES - DEVICE F inal Result Performing Organization Address [facility] Co de Phone Number [facility] [place] [place] [address] * POCT glucose (02/27/2024 8:39 PM POLICY CHECKER) Glucose, POC 141 70 - 199 mg/dL Blood 02/27/2024 8:39 PM POLICY CHECKER 02/27/2024 8:39 PM POLICY CHECKER Migel Torres MD LAB POCT ORDERABLES - DEVICE F inal Result Performing Organization Address [facility] [place] [address] * POCT glucose (02/27/2024 4:35 PM POLICY CHECKER) Glucose, POC 149 70 - 199 mg/dL Blood 02/27/2024 4:35 PM POLICY CHECKER 02/27/2024 4:35 PM POLICY CHECKER Migel Torres MD LAB POCT ORDERABLES - DEVICE F inal Result Performing Organization Address [facility] Co de Phone Number [facility] [place] [employer] [place] [address] * POCT glucose (02/27/2024 11:44 AM POLICY CHECKER) Glucose, POC 155 70 - 199 mg/dL Blood 02/27/2024 11:4 4 AM POLICY CHECKER 02/27/2024 11:44 AM POLICY CHECKER Migel Torres MD LAB POCT ORDERABLES - DEVICE F inal Result Performing Organization Address [facility] Co de Phone Number [facility] [place] [employer] [place] [address] * XR Chest 1 View (02/27/2024 8:10 AM POLICY CHECKER) Anatomical Region Laterality Modality Body, Chest N/A Computed Radiogr aphy 02/27/2024 10:0 9 AM POLICY CHECKER Impressions 02/27/2024 10:09 AM POLICY CHECKER Comparison is made to 02/21/2022. There is a new right clavicle loop catheter in place with a similar-appearing loculated right basilar pleural effusion that is small. Pockets of gas seen within the effusion on the prior examination are less well seen but there is probably a small right apical pneumothorax component. There is also a new right upper quadrant cope loop catheter which has drained the right upper quadrant gas-filled collection that was seen on the prior. Left lung is clear. There are coronary stents. Right peripherally inserted central catheter has tip in the right atrium. Electronically signed by: Dallas Arthur M.D. Narrative 02/27/2024 10:09 AM POLICY CHECKER EXAMINATION: 1 view chest radiograph Procedure Note Dallas Arthur MD - 02/27/2024 EXAMINATION: 1 view chest radiograph IMPRESSION: Comparison is made to 02/21/2022. There is a new right clavicle loop catheter in place with a similar-appearing loculated right basilar pleural effusion that is small. Pockets of gas seen within the effusion on the prior examination are less well seen but there is probably a small right apical pneumothorax component. There is also a new right upper quadrant cope loop catheter which has drained the right upper quadrant gas-filled collection that was seen on the prior. Left lung is clear. There are coronary stents. Right peripherally inserted central catheter has tip in the right atrium. Electronically signed by: Dallas Arthur M.D. Migel Torres MD IMG XR PROCEDURES Final Result * POCT glucose (02/27/2024 7:55 AM POLICY CHECKER) Glucose, POC 154 70 - 199 mg/dL Blood 02/27/2024 7:55 AM POLICY CHECKER 02/27/2024 7:55 AM POLICY CHECKER Migel Torres MD LAB POCT ORDERABLES - DEVICE F inal Result Performing Organization Address [facility] Co de Phone Number [facility] [place] [address] * (ABNORMAL) eGFR (02/26/2024 9:45 PM POLICY CHECKER) eGFR 53(L) >=60 mL/min/1. 73 m2 Comment: Interpretive Data Reference Interval Normal >/= 90 mL/min/1.73m2 Mildly decreased* 60 - 89 mL/min/1.73m2 Mildly to moderately decreased 45 - 59 mL/min/1.73m2 Moderately to severely decreased 30 - 44 mL/min/1.73m2 Severely decreased 15 - 29 mL/min/1.73m2 Kidney Failure < 15 mL/min/1.73m2 *Relative to young adult level Estimated glomerular filtration rate is determined by the 2020 CKD-EPI equation recommended by the National Kidney Foundation (A Unifying Approach to GFR Estimation: Recommendations of the NKF-ASK Task Force on Reassessing the Inclusion of Race in Diagnosing Kidney Disease, JASN 2020). The CKD-EPI equation should not be used for patients with unstable renal function and has not been validated in children and those over 70. Current interpretive data was last reviewed 2020. Blood 02/26/2024 9:45 PM POLICY CHECKER 02/27/2024 1:50 AM POLICY CHECKER Brijesh Flores MD LAB BLOOD ORDERABLES Final Result Performing Organization Address [facility]/ZIP Co de Phone Number [facility] [place] [address] * (ABNORMAL) CBC without differential (02/26/2024 9:45 PM POLICY CHECKER) [facility] WBC 6.1 3.8 - 9.9 K/cumm Hgb 8.1(L) 11.9 - 15.5 g/dL [facility] Hct 26.1(L) 35.6 - 45.5 % [facility] Plt 192 150 - 400 K/cumm [facility] MPV 9.5 9.1 - 12.3 fL [facility] RBC 3.17(L) 3.90 - 5.20 M/cumm [facility] MCV 82.3 81.3 - 96.4 fL [facility] MCH 25.6(L) 27.1 - 33.3 pg [facility] MCHC 31.0(L) 32.3 - 35.7 g/dL [facility] RDW CV 19.1(H) 11.1 - 14.9 % [facility] RDW SD 57.0(H) 35.7 - 48.1 fL [facility] NRBC abs 0.00 0.00 - 0.01 K/cumm [facility] Blood 02/26/2024 9:45 PM POLICY CHECKER 02/27/2024 1:50 AM POLICY CHECKER us Brijesh Flores MD LAB BLOOD ORDERABLES Final Result [facility] [place] [address] * Phosphorus (02/26/2024 9:45 PM POLICY CHECKER) Phosphorus, pl 4.2 2.3 - 4.5 mg/dL Blood 02/26/2024 9:45 PM POLICY CHECKER 02/27/2024 1:50 AM POLICY CHECKER us Monisha Alonso MD LAB BLOOD ORDERABLES Final Resul t [facility] [place] [employer] [place] [address] * Magnesium (02/26/2024 9:45 PM POLICY CHECKER) Magnesium 2.1 1.4 - 2.5 mg/dL Blood 02/26/2024 9:45 PM POLICY CHECKER 02/27/2024 1:50 AM POLICY CHECKER us Monisha Alonso MD LAB BLOOD ORDERABLES Final Resul t [facility] [place] [address] * (ABNORMAL) Basic metabolic panel (02/26/2024 9:45 PM POLICY CHECKER) Pathologist [facility] Sodium 144 135 - 145 mmol/L Potassium, pl 3.6 3.3 - 4.9 mmol/L [facility] Chloride 114(H) 97 - 110 mmol/L [facility] CO2 24 22 - 32 mmol/L [facility] Anion gap 6 2 - 15 mmol/L [facility] BUN 25 6 - 25 mg/dL [facility] Creatinine 1.05 0.60 - 1.10 mg/dL [facility] Glucose 152 70 - 199 mg/dL [facility] Comment: Interpretive Data Fasting glucose >/= 126 mg/dl is diagnostic for diabetes. Fasting is defined as no caloric intake for at least 8 hours. Fasting glucose between 100 mg/dl to 125 mg/dl is diagnostic of prediabetes. In a patient with classic symptoms of hyperglycemia or hyperglycemic crisis, a random glucose >/= 200 mg/dl is diagnostic for diabetes. In the absence of unequivocal hyperglycemia, results should be confirmed by repeat testing. The classification and Diagnosis of Diabetes Diabetes Care 202; 46: S19-S40. Current interpretive data was last revised 2022. Calcium 9.0 8.5 - 10.3 mg/dL [facility] Blood 02/26/2024 9:45 PM POLICY CHECKER 02/27/2024 1:50 AM POLICY CHECKER us Brijesh Flores MD LAB BLOOD ORDERABLES Final Result [facility] [place] [address] * POCT glucose (02/26/2024 8:33 PM POLICY CHECKER) Glucose, POC 159 70 - 199 mg/dL Blood 02/26/2024 8:33 PM POLICY CHECKER 02/26/2024 8:33 PM POLICY CHECKER Migel Torres MD LAB POCT ORDERABLES - DEVICE F inal Result Performing Organization Address [facility] [place] de Phone Number [facility] [place] [employer] [address] * POCT glucose (02/26/2024 5:56 PM POLICY CHECKER) Glucose, POC 156 70 - 199 mg/dL Blood 02/26/2024 5:56 PM POLICY CHECKER 02/26/2024 5:56 PM POLICY CHECKER Migel Torres MD LAB POCT ORDERABLES - DEVICE F inal Result Performing Organization Address [facility] Phone Number [facility] [place] [employer] [address] * (ABNORMAL) POCT glucose (02/26/2024 12:10 PM POLICY CHECKER) Glucose, POC 247(H) 70 - 199 mg/dL Blood 02/26/2024 12:1 0 PM POLICY CHECKER 02/26/2024 12:10 PM POLICY CHECKER Migel Torres MD LAB POCT ORDERABLES - DEVICE F inal Result Performing Organization Address [facility] [place] de Phone Number [facility] [place] [employer] [address] * POCT glucose (02/26/2024 7:47 AM POLICY CHECKER) Glucose, POC 180 70 - 199 mg/dL Blood 02/26/2024 7:47 AM POLICY CHECKER 02/26/2024 7:47 AM POLICY CHECKER Migel Torres MD LAB POCT ORDERABLES - DEVICE F inal Result Performing Organization Address [facility] [place] de Phone Number [facility] [place] [address] * (ABNORMAL) eGFR (02/25/2024 11:37 PM POLICY CHECKER) [facility] eGFR 47(L) >=60 mL/min/1. 73 m2 Comment: Interpretive Data Reference Interval Normal >/= 90 mL/min/1.73m2 Mildly decreased* 60 - 89 mL/min/1.73m2 Mildly to moderately decreased 45 - 59 mL/min/1.73m2 Moderately to severely decreased 30 - 44 mL/min/1.73m2 Severely decreased 15 - 29 mL/min/1.73m2 Kidney Failure < 15 mL/min/1.73m2 *Relative to young adult level Estimated glomerular filtration rate is determined by the 2020 CKD-EPI equation recommended by the National Kidney Foundation (A Unifying Approach to GFR Estimation: Recommendations of the NKF-ASK Task Force on Reassessing the Inclusion of Race in Diagnosing Kidney Disease, JASN 2020). The CKD-EPI equation should not be used for patients with unstable renal function and has not been validated in children and those over 70. Current interpretive data was last reviewed 2020. Blood 02/25/2024 11:3 7 PM POLICY CHECKER 02/25/2024 11:58 PM POLICY CHECKER Brijesh Flores MD LAB BLOOD ORDERABLES Final Result Performing Organization Address City/[facility] Co de Phone Number [facility] [place] [address] * (ABNORMAL) CBC without differential (02/25/2024 11:37 PM POLICY CHECKER) [facility] WBC 6.0 3.8 - 9.9 K/cumm Hgb 8.8(L) 11.9 - 15.5 g/dL [facility] Hct 28.1(L) 35.6 - 45.5 % [facility] Plt 215 150 - 400 K/cumm [facility] MPV 9.2 9.1 - 12.3 fL [facility] RBC 3.46(L) 3.90 - 5.20 M/cumm [facility] MCV 81.2(L) 81.3 - 96.4 fL [facility] MCH 25.4(L) 27.1 - 33.3 pg [facility] MCHC 31.3(L) 32.3 - 35.7 g/dL [facility] RDW CV 19.1(H) 11.1 - 14.9 % [facility] RDW SD 56.0(H) 35.7 - 48.1 fL [facility] NRBC abs 0.00 0.00 - 0.01 K/cumm [facility] Blood 02/25/2024 11:3 7 PM POLICY CHECKER 02/25/2024 11:58 PM POLICY CHECKER Brijesh Flores MD LAB BLOOD ORDERABLES Final Result Performing Organization Address City/[facility]/ZIP Co de Phone Number [facility] [place] [address] * Phosphorus (02/25/2024 11:37 PM POLICY CHECKER) Pathologist [facility] Phosphorus, pl 2.6 2.3 - 4.5 mg/dL Blood 02/25/2024 11:3 7 PM POLICY CHECKER 02/25/2024 11:58 PM POLICY CHECKER Monisha Alonso MD LAB BLOOD ORDERABLES Final Resul t [facility] [place] [address] * Magnesium (02/25/2024 11:37 PM POLICY CHECKER) Pathologist [facility] Magnesium 1.8 1.4 - 2.5 mg/dL Blood 02/25/2024 11:3 7 PM POLICY CHECKER 02/25/2024 11:58 PM POLICY CHECKER Monisha Alonso MD LAB BLOOD ORDERABLES Final Resul t [facility] [place] [address] * (ABNORMAL) Basic metabolic panel (02/25/2024 11:37 PM POLICY CHECKER) Sodium 143 135 - 145 mmol/L Potassium, pl 3.6 3.3 - 4.9 mmol/L [facility] Chloride 115(H) 97 - 110 mmol/L [facility] CO2 21(L) 22 - 32 mmol/L [facility] Anion gap 7 2 - 15 mmol/L [facility] BUN 24 6 - 25 mg/dL [facility] Creatinine 1.16(H) 0.60 - 1.10 mg/dL [facility] Glucose 159 70 - 199 mg/dL [facility] Comment: Interpretive Data Fasting glucose >/= 126 mg/dl is diagnostic for diabetes. Fasting is defined as no caloric intake for at least 8 hours. Fasting glucose between 100 mg/dl to 125 mg/dl is diagnostic of prediabetes. In a patient with classic symptoms of hyperglycemia or hyperglycemic crisis, a random glucose >/= 200 mg/dl is diagnostic for diabetes. In the absence of unequivocal hyperglycemia, results should be confirmed by repeat testing. The classification and Diagnosis of Diabetes Diabetes Care 202; 46: S19-S40. Current interpretive data was last revised 2022. Calcium 9.4 8.5 - 10.3 mg/dL [facility] Blood 02/25/2024 11:3 7 PM POLICY CHECKER 02/25/2024 11:58 PM POLICY CHECKER Brijesh Flores MD LAB BLOOD ORDERABLES Final Result [facility] [place] [address] * (ABNORMAL) POCT glucose (02/25/2024 8:54 PM POLICY CHECKER) Glucose, POC 207(H) 70 - 199 mg/dL Blood 02/25/2024 8:54 PM POLICY CHECKER 02/25/2024 8:54 PM POLICY CHECKER Migel Torres MD LAB POCT ORDERABLES - DEVICE F inal Result Performing Organization Address [facility] de Phone Number [facility] [place] [address] * (ABNORMAL) POCT glucose (02/25/2024 4:41 PM POLICY CHECKER) Glucose, POC 223(H) 70 - 199 mg/dL Blood 02/25/2024 4:41 PM POLICY CHECKER 02/25/2024 4:41 PM POLICY CHECKER Migel Torres MD LAB POCT ORDERABLES - DEVICE F inal Result Performing Organization Address [facility] Phone Number [facility] [place] [address] * POCT glucose (02/25/2024 2:42 PM POLICY CHECKER) Glucose, POC 196 70 - 199 mg/dL Blood 02/25/2024 2:42 PM POLICY CHECKER 02/25/2024 2:42 PM POLICY CHECKER Migel Torres MD LAB POCT ORDERABLES - DEVICE F inal Result Performing Organization Address [facility] [place] [address] * Image Guided Drainage Peritoneal or Retroperitoneal Fluid Collection (02/25/2024 1:44 PM POLICY CHECKER) Anatomical Region Laterality Modality Body N/A X-Ray Angiograph y 02/25/2024 2:15 PM POLICY CHECKER Impressions 02/26/2024 9:15 AM POLICY CHECKER Successful image guided drainage of perihepatic collection. PLAN: This tube should not be flushed with saline. Dictated by: Rolly Cunningham M.D. The radiology attending physician has personally reviewed this study, and had reviewed and/or edited this written report and agrees with it. Electronically signed by: Aman Calabrese M.D. 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 ATTENDING PRESENCE: Aman Calabrese M.D., the attending radiologist was present from the beginning to the end of the procedure. SEDATION: Procedural sedation was administered under the attending physician's direction and continuous monitoring by a trained nurse specialist who was independent from those actually performing the procedure. Total monitored sedation time was 26 minutes. TECHNIQUE: The risks, benefits and alternatives were discussed and informed consent was obtained. Prior to beginning the procedure, [place] Protocol was used to confirm the patient's identity and planned procedure. If fluoroscopy was used, fluoroscopy time has been recorded in the electronic medical record. Maximum sterile barriers including cap, mask, hand hygiene, sterile gloves, sterile gown, large sterile drape and 2% chlorhexidine for cutaneous antisepsis were used. The skin overlying the fluid collection in the right upper abdomen was sterilely prepped, draped and infiltrated with 1% buffered lidocaine. The targeted collection was then accessed with a 21 gauge gauge needle using imaging guidance which included fluoroscopy. Contrast was injected to confirm needle placement. A guidewire was advanced and coiled within the collection before dilating the tract to 10 Fr. A 10 [place] loop drainage catheter was then advanced over the guidewire and secured in place with a stitch of 0-Prolene. The catheter was connected to gravity drainage. A sterile dressing was applied. A sample of the fluid was sent for culture ESTIMATED BLOOD LOSS: Minimal. CONDITION: Stable DISCHARGED TO: Recovery and then to inpatient unit. FINDINGS: Images from the procedure revealed a collection that was predominantly gas filled. The fluid appeared purulent. An approximate volume of 2 to 3 cc was drained at the time of the procedure. Procedure Note Aman Calabrese MD PhD - 02/26/2024 EXAMINATION: PERCUTANEOUS DRAINAGE (STD) HISTORY/INDICATION: 83 yr old female with colonic adenocarcinoma status post subtotal colectomy, small bowel resection, and ileocolic anastomosis with the right subphrenic/perihepatic collection status post percutaneous drain placement and removal, with reaccumulation of a perihepatic fluid/gas collection. ATTENDING PRESENCE: Aman Calabrese M.D., the attending radiologist was present from the beginning to the end of the procedure. SEDATION: Procedural sedation was administered under the attending physician's direction and continuous monitoring by a trained nurse specialist who was independent from those actually performing the procedure. Total monitored sedation time was 26 minutes. TECHNIQUE: The risks, benefits and alternatives were discussed and informed consent was obtained. Prior to beginning the procedure, [place] Protocol was used to confirm the patient's identity and planned procedure. If fluoroscopy was used, fluoroscopy time has been recorded in the electronic medical record. Maximum sterile barriers including cap, mask, hand hygiene, sterile gloves, sterile gown, large sterile drape and 2% chlorhexidine for cutaneous antisepsis were used. The skin overlying the fluid collection in the right upper abdomen was sterilely prepped, draped and infiltrated with 1% buffered lidocaine. The targeted collection was then accessed with a 21 gauge gauge needle using imaging guidance which included fluoroscopy. Contrast was injected to confirm needle placement. A guidewire was advanced and coiled within the collection before dilating the tract to 10 Fr. A 10 [place] loop drainage catheter was then advanced over the guidewire and secured in place with a stitch of 0-Prolene. The catheter was connected to gravity drainage. A sterile dressing was applied. A sample of the fluid was sent for culture ESTIMATED BLOOD LOSS: Minimal. CONDITION: Stable DISCHARGED TO: Recovery and then to inpatient unit. FINDINGS: Images from the procedure revealed a collection that was predominantly gas filled. The fluid appeared purulent. An approximate volume of 2 to 3 cc was drained at the time of the procedure. IMPRESSION: Successful image guided drainage of perihepatic collection. PLAN: This tube should not be flushed with saline. Dictated by: Rolly Cunningham M.D. The radiology attending physician has personally reviewed this study, and had reviewed and/or edited this written report and agrees with it. Electronically signed by: Aman Calabrese M.D. Migel Torres MD IMG IR PROCEDURES Final Result * (ABNORMAL) Aerobic and anaerobic culture and gram stain Abscess Hepatic drain (02/25/2024 1:40 PM POLICY CHECKER) Direct Specimen Exam Stain: Abundant polymorphonuclear leukocytes seen. Rare Gram Negative Bacilli Report Final Report: Moderate Pseudomonas aeruginosa Moderate Citrobacter koseri Few Mixed Gram-positive and Gram-negative microorganisms (.) [facility] Organism PSEUDOMONAS AERUGINOSA [facility] Organism MIXED GRAM POS AND GRAM NEG MICROORGANISMS [facility] Organism CITROBACTER KOSERI [facility] Abscess (Hepatic drain) 02/25/2024 1:40 PM POLICY CHECKER 02/25/2024 3:02 PM POLICY CHECKER Narrative [facility] - 02/29/2024 2:16 PM POLICY CHECKER From drain placed 02/25/24 Testing performed by [facility] ([phone]) Specimens submitted from normally sterile body sites will have all bacterial morphotypes identified. Specimens that contain grossly mixed sandip and/or are from body sites that are not normally sterile will be examined for Staphylococcus aureus, Pseudomonas aeruginosa, beta-hemolytic strep, vancomycin-resistant Enterococcus, Bacteroides, Parabacteroides, Clostridium perfringens and fungus. If any of these are isolated, the organism will be reported. Current interpretive data was last revised on 2019. Organism Antibiotic Method Susceptibility Pseudomonas aeruginosa Aztreonam INTERPRETATION Susceptible Pseudomonas aeruginosa Ceftazidime INTERPRETATION Susceptible Pseudomonas aeruginosa Ciprofloxacin INTERPRETATION Susceptible Pseudomonas aeruginosa Cefepime INTERPRETATION Susceptible Pseudomonas aeruginosa Imipenem INTERPRETATION Intermediate Pseudomonas aeruginosa Meropenem INTERPRETATION Resistant Pseudomonas aeruginosa Piperacillin/Tazobactam INTERPR ETATION Susceptible Pseudomonas aeruginosa Tobramycin INTERPRETATION Susceptible Pseudomonas aeruginosa Ceftolozane - Tazobactam INTERP RETATION Susceptible Pseudomonas aeruginosa Cefiderocol INTERPRETATION Susceptible Citrobacter koseri Ampicillin INTERPRETATION Resistant Citrobacter koseri Cefazolin INTERPRETATION Susceptible Citrobacter koseri Gentamicin INTERPRETATION Susceptible Citrobacter koseri Ampicillin with Sulbactam INTERPRET ATION Susceptible Citrobacter koseri Trimethoprim with Sulfamethoxazole INTERPRETATION Susceptible Citrobacter koseri Meropenem INTERPRETATION Susceptible Citrobacter koseri Cefepime INTERPRETATION Susceptible Citrobacter koseri Ciprofloxacin INTERPRETATION Susceptible Citrobacter koseri Ceftazidime INTERPRETATION Susceptible Citrobacter koseri Ceftriaxone INTERPRETATION Susceptible Citrobacter koseri Piperacillin/Tazobactam INTERPRETAT ION Susceptible us Aman Calabrese MD PhD LAB MICROBIOLOGY - GENERA L ORDERABLES Final Result Performing Organization Address [facility] de Phone Number [facility] [place] [address] * (ABNORMAL) POCT glucose (02/25/2024 6:45 AM POLICY CHECKER) Glucose, POC 212(H) 70 - 199 mg/dL Blood 02/25/2024 6:45 AM POLICY CHECKER 02/25/2024 6:45 AM POLICY CHECKER Migel Torres MD LAB POCT ORDERABLES - DEVICE F inal Result Performing Organization Address [facility] [facility] [place] de Phone Number [facility] Department [place] [address] * POCT glucose (02/25/2024 12:48 AM POLICY CHECKER) Glucose, POC 191 70 - 199 mg/dL Blood 02/25/2024 12:4 8 AM POLICY CHECKER 02/25/2024 12:48 AM POLICY CHECKER Migel Torres MD LAB POCT ORDERABLES - DEVICE F inal Result Performing Organization Address [facility] [place] de Phone Number [facility] Department [place] [address] * (ABNORMAL) eGFR (02/24/2024 10:21 PM POLICY CHECKER) eGFR 38(L) >=60 mL/min/1. 73 m2 Comment: Interpretive Data Reference Interval Normal >/= 90 mL/min/1.73m2 Mildly decreased* 60 - 89 mL/min/1.73m2 Mildly to moderately decreased 45 - 59 mL/min/1.73m2 Moderately to severely decreased 30 - 44 mL/min/1.73m2 Severely decreased 15 - 29 mL/min/1.73m2 Kidney Failure < 15 mL/min/1.73m2 *Relative to young adult level Estimated glomerular filtration rate is determined by the 2020 CKD-EPI equation recommended by the National Kidney Foundation (A Unifying Approach to GFR Estimation: Recommendations of the NKF-ASK Task Force on Reassessing the Inclusion of Race in Diagnosing Kidney Disease, JASN 2020). The CKD-EPI equation should not be used for patients with unstable renal function and has not been validated in children and those over 70. Current interpretive data was last reviewed 2020. Blood 02/24/2024 10:2 1 PM POLICY CHECKER 02/24/2024 10:46 PM POLICY CHECKER us Brijesh Flores MD LAB BLOOD ORDERABLES Final Result [facility] Department [place] [address] * (ABNORMAL) CBC without differential (02/24/2024 10:21 PM POLICY CHECKER) WBC 7.1 3.8 - 9.9 K/cumm Hgb 10.0(L) 11.9 - 15.5 g/dL [facility] Hct 31.5(L) 35.6 - 45.5 % [facility] Plt 232 150 - 400 K/cumm [facility] MPV 8.6(L) 9.1 - 12.3 fL [facility] RBC 3.92 3.90 - 5.20 M/cumm [facility] MCV 80.4(L) 81.3 - 96.4 fL [facility] MCH 25.5(L) 27.1 - 33.3 pg [facility] MCHC 31.7(L) 32.3 - 35.7 g/dL [facility] RDW CV 19.0(H) 11.1 - 14.9 % [facility] RDW SD 55.4(H) 35.7 - 48.1 fL [facility] NRBC abs 0.00 0.00 - 0.01 K/cumm [facility] Blood 02/24/2024 10:2 1 PM POLICY CHECKER 02/24/2024 10:46 PM POLICY CHECKER Brijesh Flores MD LAB BLOOD ORDERABLES Final Result Performing Organization Address [facility] Co de Phone Number [facility] [place] [address] * Phosphorus (02/24/2024 10:21 PM POLICY CHECKER) Pathologist [facility] Phosphorus, pl 2.9 2.3 - 4.5 mg/dL Blood 02/24/2024 10:2 1 PM POLICY CHECKER 02/24/2024 10:46 PM POLICY CHECKER Monisha Alonso MD LAB BLOOD ORDERABLES Final Resul t Performing Organization Address [facility] [place] de Phone Number [facility] [place] [address] * Magnesium (02/24/2024 10:21 PM POLICY CHECKER) [facility] Magnesium 1.5 1.4 - 2.5 mg/dL Blood 02/24/2024 10:2 1 PM POLICY CHECKER 02/24/2024 10:46 PM POLICY CHECKER Monisha Alonso MD LAB BLOOD ORDERABLES Final Resul t Performing Organization Address [facility] [place] de Phone Number [facility] [place] [address] * (ABNORMAL) Basic metabolic panel (02/24/2024 10:21 PM POLICY CHECKER) Pathologist [facility] Sodium 141 135 - 145 mmol/L Potassium, pl 3.7 3.3 - 4.9 mmol/L [facility] Chloride 114(H) 97 - 110 mmol/L [facility] CO2 20(L) 22 - 32 mmol/L [facility] Anion gap 7 2 - 15 mmol/L [facility] BUN 27(H) 6 - 25 mg/dL [facility] Creatinine 1.39(H) 0.60 - 1.10 mg/dL [facility] Glucose 121 70 - 199 mg/dL [facility] Comment: Interpretive Data Fasting glucose >/= 126 mg/dl is diagnostic for diabetes. Fasting is defined as no caloric intake for at least 8 hours. Fasting glucose between 100 mg/dl to 125 mg/dl is diagnostic of prediabetes. In a patient with classic symptoms of hyperglycemia or hyperglycemic crisis, a random glucose >/= 200 mg/dl is diagnostic for diabetes. In the absence of unequivocal hyperglycemia, results should be confirmed by repeat testing. The classification and Diagnosis of Diabetes Diabetes Care 2021; 46: S19-S40. Current interpretive data was last revised 2022. Calcium 9.9 8.5 - 10.3 mg/dL [facility] Blood 02/24/2024 10:2 1 PM POLICY CHECKER 02/24/2024 10:46 PM POLICY CHECKER Brijesh Flores MD LAB BLOOD ORDERABLES Final Result Performing Organization Address City/[facility]/ZIP Co de Phone Number [facility] Department [place] [address] * POCT glucose (02/24/2024 5:55 PM POLICY CHECKER) Pathologist [facility] Glucose, POC 119 70 - 199 mg/dL Blood 02/24/2024 5:55 PM POLICY CHECKER 02/24/2024 5:55 PM POLICY CHECKER Migel Torres MD LAB POCT ORDERABLES - DEVICE F inal Result Performing Organization Address City/[facility] Co de Phone Number [facility] Department [place] [address] * (ABNORMAL) Aerobic and anaerobic culture and gram stain Pleural fluid Lobe, right upper (:13 PM POLICY CHECKER) Pathologist [facility] Direct Specimen Exam Stain: Cytospin Gram stain shows: Abundant polymorphonuclear leukocytes seen. Other cellular material present. No organisms seen. Report Final Report: Few Pseudomonas aeruginosa (.) [facility] Organism PSEUDOMONAS AERUGINOSA [facility] Pleural fluid (Lobe, right upper) 02/24/2024 1:13 PM POLICY CHECKER 02/24/2024 2:49 PM POLICY CHECKER Narrative LAILA NUGENT - 03/02/2024 8:58 AM POLICY CHECKER Testing performed by [facility] ([phone]) Specimens submitted from normally sterile body sites will have all bacterial morphotypes identified. Specimens that contain grossly mixed sandip and/or are from body sites that are not normally sterile will be examined for Staphylococcus aureus, Pseudomonas aeruginosa, beta-hemolytic strep, vancomycin-resistant Enterococcus, Bacteroides, Parabacteroides, Clostridium perfringens and fungus. If any of these are isolated, the organism will be reported. Current interpretive data was last revised on 2019. Organism Antibiotic Method Susceptibility Pseudomonas aeruginosa Aztreonam INTERPRETATION Susceptible Pseudomonas aeruginosa Ceftazidime INTERPRETATION Susceptible Pseudomonas aeruginosa Ciprofloxacin INTERPRETATION Susceptible Pseudomonas aeruginosa Cefepime INTERPRETATION Susceptible Pseudomonas aeruginosa Imipenem INTERPRETATION Resistant Pseudomonas aeruginosa Meropenem INTERPRETATION Resistant Pseudomonas aeruginosa Piperacillin/Tazobactam INTERPR ETATION Susceptible Pseudomonas aeruginosa Tobramycin INTERPRETATION Susceptible Pseudomonas aeruginosa Ceftolozane - Tazobactam INTERP RETATION Susceptible Pseudomonas aeruginosa Cefiderocol INTERPRETATION Susceptible us Aileen Santizo MD PhD LAB MICROBIOLOGY - [facility] ORDERABLES Final Result [facility] [place] [address] * IR Chest Drainage With Imaging Right (02/24/2024 1:05 PM POLICY CHECKER) Anatomical Region Laterality Modality Chest Right X-Ray Angiograph y 02/24/2024 1:25 PM POLICY CHECKER Impressions 02/24/2024 1:25 PM POLICY CHECKER Successful right percutaneous chest tube placement with imaging guidance (12 Tu[place] locking loop multipurpose drainage catheter). PLAN: 1. Place chest tube to -20 suction and monitor output. Please note that she has had prior chest tube(s) and this fluid collection is recurrent. Therefore the decision to remove the chest tube should be made with care, given the history of recurrence and loculations. 2. Flush the chest tube with 10mL sterile saline daily to promote drain patency. 3. Please follow-up fluid cultures and/or analyses. 4. Interventional Radiology to follow. Electronically signed by: Aileen Santizo MD Narrative 02/24/2024 1:25 PM POLICY CHECKER EXAMINATION: PERCUTANEOUS CHEST TUBE PLACEMENT (RIGHT) HISTORY/INDICATION: History of colonic adenocarcinoma status post subtotal colectomy, small bowel resection, and ileocolic anastomosis with the right subphrenic/perihepatic collection status post percutaneous drain placement and removal, now with CT findings concerning for loculated right pleural fluid collection with gas locules concerning for a possible empyema. ATTENDING PRESENCE: Aileen Santizo MD, PhD, the attending radiologist was present from the beginning to the end of the procedure. FELLOW: Jannie Linares MD SEDATION: Local anesthetic and fentanyl intravenous. TECHNIQUE: The risks, benefits and alternatives were discussed and informed consent was obtained. Prior to beginning the procedure, [place] Protocol was used to confirm the patient's identity and planned procedure. If fluoroscopy was used, fluoroscopy time has been recorded in the electronic medical record. Maximum sterile barriers including cap, mask, hand hygiene, sterile gloves, sterile gown, large sterile drape and 2% chlorhexidine for cutaneous antisepsis were used. The skin overlying the fluid collection in the right chest wall was sterilely prepped, draped and infiltrated with 1% buffered lidocaine. The targeted collection was then accessed with a 18 gauge needle using imaging guidance which included ultrasound and fluoroscopy. A guidewire was advanced and coiled within the collection before dilating the tract to 12 Fr. A 12 [place] multipurpose drainage catheter was then advanced over the guidewire and secured in place with a stitch of 0-Prolene. The catheter was connected to an atrium device. A sterile dressing was applied. A sample of the fluid was sent for culture. ESTIMATED BLOOD LOSS: Minimal. CONDITION: Stable DISCHARGED TO: Recovery and then to home. FINDINGS: 1. Ultrasound demonstrates a hypoechoic right pleural fluid collection with thin loculations. 2. The fluid removed appeared serosanguineous. Approximately 20 mL was removed. 3. Postprocedural fluoroscopy demonstrates the chest tube overlying the right chest wall. Procedure Note Aileen Santizo MD PhD - 02/24/2024 EXAMINATION: PERCUTANEOUS CHEST TUBE PLACEMENT (RIGHT) HISTORY/INDICATION: History of colonic adenocarcinoma status post subtotal colectomy, small bowel resection, and ileocolic anastomosis with the right subphrenic/perihepatic collection status post percutaneous drain placement and removal, now with CT findings concerning for loculated right pleural fluid collection with gas locules concerning for a possible empyema. ATTENDING PRESENCE: Aileen Santizo MD, PhD, the attending radiologist was present from the beginning to the end of the procedure. FELLOW: Jannie Linares MD SEDATION: Local anesthetic and fentanyl intravenous. TECHNIQUE: The risks, benefits and alternatives were discussed and informed consent was obtained. Prior to beginning the procedure, [place] Protocol was used to confirm the patient's identity and planned procedure. If fluoroscopy was used, fluoroscopy time has been recorded in the electronic medical record. Maximum sterile barriers including cap, mask, hand hygiene, sterile gloves, sterile gown, large sterile drape and 2% chlorhexidine for cutaneous antisepsis were used. The skin overlying the fluid collection in the right chest wall was sterilely prepped, draped and infiltrated with 1% buffered lidocaine. The targeted collection was then accessed with a 18 gauge needle using imaging guidance which included ultrasound and fluoroscopy. A guidewire was advanced and coiled within the collection before dilating the tract to 12 Fr. A 12 [place]uan multipurpose drainage catheter was then advanced over the guidewire and secured in place with a stitch of 0-Prolene. The catheter was connected to an atrium device. A sterile dressing was applied. A sample of the fluid was sent for culture. ESTIMATED BLOOD LOSS: Minimal. CONDITION: Stable DISCHARGED TO: Recovery and then to home. FINDINGS: 1. Ultrasound demonstrates a hypoechoic right pleural fluid collection with thin loculations. 2. The fluid removed appeared serosanguineous. Approximately 20 mL was removed. 3. Postprocedural fluoroscopy demonstrates the chest tube overlying the right chest wall. IMPRESSION: Successful right percutaneous chest tube placement with imaging guidance (12 Tuvaluan locking loop multipurpose drainage catheter). PLAN: 1. Place chest tube to -20 suction and monitor output. Please note that she has had prior chest tube(s) and this fluid collection is recurrent. Therefore the decision to remove the chest tube should be made with care, given the history of recurrence and loculations. 2. Flush the chest tube with 10mL sterile saline daily to promote drain patency. 3. Please follow-up fluid cultures and/or analyses. 4. Interventional Radiology to follow. Electronically signed by: Aileen Santizo MD us Miranda Turcios MD IMG IR PROCEDURES Final Result * (ABNORMAL) CBC without differential (02/24/2024 10:06 AM POLICY CHECKER) Pathologist [facility] WBC 7.9 3.8 - 9.9 K/cumm Hgb 9.2(L) 11.9 - 15.5 g/dL [facility] Hct 29.3(L) 35.6 - 45.5 % [facility] Plt 245 150 - 400 K/cumm [facility] MPV 9.7 9.1 - 12.3 fL [facility] RBC 3.59(L) 3.90 - 5.20 M/cumm [facility] MCV 81.6 81.3 - 96.4 fL [facility] MCH 25.6(L) 27.1 - 33.3 pg [facility] MCHC 31.4(L) 32.3 - 35.7 g/dL [facility] RDW CV 18.4(H) 11.1 - 14.9 % [facility] RDW SD 54.6(H) 35.7 - 48.1 fL [facility] NRBC abs 0.00 0.00 - 0.01 K/cumm [facility] Blood 02/24/2024 10:0 6 AM POLICY CHECKER 02/24/2024 10:17 AM POLICY CHECKER Narrative [facility] - 02/24/2024 10:25 AM POLICY CHECKER 1 hour after transfusion of Red Blood Cells is complete. us Roxanne Fitzgerald MD LAB BLOOD ORDERABLES Final Result [facility] Department [place] [address] * Prepare RBC: 1 Units (02/24/2024 5:32 AM POLICY CHECKER) Pathologist [facility] Product code [id number] Unit Number [id number] L [facility] Product Blood Type OPOS [facility] Dispense Status PRESUMED TRANSFUSED [facility] Blood 02/24/2024 5:32 AM POLICY CHECKER 02/24/2024 5:32 AM POLICY CHECKER Narrative [facility] - 02/24/2024 8:01 PM POLICY CHECKER Are special requirements needed? (All products are leukoreduced and CMV- safe)- >No Date required:-[id number] LRRBC # of [id number] Reasons:-Hgb <7 g/dL} us Roxanne Fitzgerald MD BLOOD BANK PRODUCT ORDERAB LES Final Result Performing Organization Address [facility] Co de Phone Number [facility] [place] [address] * Type and screen (02/24/2024 2:29 AM POLICY CHECKER) ABO Rh O Positive Sumeet, indirect Negative [facility] Blood 02/24/2024 2:29 AM POLICY CHECKER 02/24/2024 2:58 AM POLICY CHECKER Narrative [facility] - 02/24/2024 5:17 AM POLICY CHECKER Has the patient had Daratumumab or Isatuximab in the past 6 months?->Unknown Roxanne Fitzgerald MD LAB BLOOD BANK TEST ORDERA BLES Final Result Performing Organization Address [facility] Co de Phone Number [facility] [place] [address] * CT Chest W Contrast (02/23/2024 10:41 PM POLICY CHECKER) Anatomical Region Laterality Modality Body N/A Computed Tomogra phy 02/23/2024 11:2 5 PM POLICY CHECKER Impressions 02/24/2024 5:50 AM POLICY CHECKER 1. Decreased size of the previously large right pleural effusion which has evolved into a 9.8 cm loculated fluid and gas collection compatible with empyema. There is associated partial right lower lobe collapse with somewhat mottled enhancement suggestive of superimposed pneumonia. 2. Increased size of the 10 cm perihepatic fluid and gas collection status post removal of the percutaneous drainage catheter. 3. Increased moderate intra and extrahepatic biliary ductal dilation and unchanged mild dilation of the main pancreatic duct without a visible obstructing stone or lesion on CT. These findings may be related to a combination of reservoir effect in the setting of cholecystectomy and possible ampullary stenosis. Recommend correlation for clinical evidence of cholestasis. This could also be further evaluated with MRCP. Dictated by: Mercedes Rose MD The radiology attending physician has personally reviewed this study, and had reviewed and/or edited this written report and agrees with it. Electronically signed by: Cornelia Pierce M.D. Narrative 02/24/2024 5:50 AM POLICY CHECKER EXAMINATION: Computed tomography of the chest with intravenous contrast HISTORY: 83-year-old woman with colonic adenocarcinoma status post subtotal colectomy, small bowel resection, and ileocolic anastomosis with the right subphrenic/perihepatic collection status post percutaneous drain placement. Evaluate empyema. TECHNIQUE: Transaxial computed tomographic images of the chest were obtained with intravenous contrast according to the standard protocol after the uneventful administration of 69 mL Opti-Ray 350 intravenous contrast. COMPARISON: CT chest abdomen pelvis 01/27/2024. FINDINGS: Decreased size of a large right pleural effusion which has evolved into a loculated fluid and gas collection in the posterior right lung base with circumferential pleural enhancement compatible with empyema. This measures 9.8 x 3.2 cm transaxial. Associated partial right lower lobe collapse with mottled enhancement concerning for superimposed pneumonia. Mild left basilar atelectasis. No left pleural effusion. No pneumothorax or suspicious pulmonary nodule. The tracheostomy is in place. Unchanged bilateral hypoattenuating thyroid nodules. Normal caliber of the thoracic aorta and main pulmonary artery. Stable mild cardiomegaly with unchanged trace pericardial fluid. Three-vessel coronary artery calcifications. Aortic valvular calcifications. The esophagus is unremarkable. Mildly prominent mediastinal lymph nodes, likely reactive. Limited images of the upper abdomen demonstrate a perihepatic fluid and gas collection measuring up to 10 x 3 x 8 cm, increased in size from 01/27/2024. Interval removal of the right upper quadrant percutaneous drainage catheter with a locule of gas in the extraperitoneal space. Additional areas of nonorganized free fluid in the upper abdomen. Scattered subcentimeter hypoattenuating liver lesions are unchanged and likely represent cysts but are too small to definitively characterize. No new hepatic lesion. Increased intra and extrahepatic biliary ductal dilation. For reference, the common bile duct measures up to 2 cm, previously 16 mm. Stable mild dilation of the main pancreatic duct without a visible obstructing stone or lesion. Cholecystectomy. Stable bilateral nonobstructing renal stones and vascular calcifications. Unchanged cortical scarring in the left kidney. No suspicious osseous lesion or acute fracture. Stable degenerative with unchanged sclerosis of the T10-T11 disc space and multilevel mild height loss in the spine. Procedure Note Cornelia Pierce MD - 02/24/2024 EXAMINATION: Computed tomography of the chest with intravenous contrast HISTORY: 83-year-old woman with colonic adenocarcinoma status post subtotal colectomy, small bowel resection, and ileocolic anastomosis with the right subphrenic/perihepatic collection status post percutaneous drain placement. Evaluate empyema. TECHNIQUE: Transaxial computed tomographic images of the chest were obtained with intravenous contrast according to the standard protocol after the uneventful administration of 69 mL Opti-Ray 350 intravenous contrast. COMPARISON: CT chest abdomen pelvis 01/27/2024. FINDINGS: Decreased size of a large right pleural effusion which has evolved into a loculated fluid and gas collection in the posterior right lung base with circumferential pleural enhancement compatible with empyema. This measures 9.8 x 3.2 cm transaxial. Associated partial right lower lobe collapse with mottled enhancement concerning for superimposed pneumonia. Mild left basilar atelectasis. No left pleural effusion. No pneumothorax or suspicious pulmonary nodule. The tracheostomy is in place. Unchanged bilateral hypoattenuating thyroid nodules. Normal caliber of the thoracic aorta and main pulmonary artery. Stable mild cardiomegaly with unchanged trace pericardial fluid. Three-vessel coronary artery calcifications. Aortic valvular calcifications. The esophagus is unremarkable. Mildly prominent mediastinal lymph nodes, likely reactive. Limited images of the upper abdomen demonstrate a perihepatic fluid and gas collection measuring up to 10 x 3 x 8 cm, increased in size from 01/27/2024. Interval removal of the right upper quadrant percutaneous drainage catheter with a locule of gas in the extraperitoneal space. Additional areas of nonorganized free fluid in the upper abdomen. Scattered subcentimeter hypoattenuating liver lesions are unchanged and likely represent cysts but are too small to definitively characterize. No new hepatic lesion. Increased intra and extrahepatic biliary ductal dilation. For reference, the common bile duct measures up to 2 cm, previously 16 mm. Stable mild dilation of the main pancreatic duct without a visible obstructing stone or lesion. Cholecystectomy. Stable bilateral nonobstructing renal stones and vascular calcifications. Unchanged cortical scarring in the left kidney. No suspicious osseous lesion or acute fracture. Stable degenerative with unchanged sclerosis of the T10-T11 disc space and multilevel mild height loss in the spine. IMPRESSION: 1. Decreased size of the previously large right pleural effusion which has evolved into a 9.8 cm loculated fluid and gas collection compatible with empyema. There is associated partial right lower lobe collapse with somewhat mottled enhancement suggestive of superimposed pneumonia. 2. Increased size of the 10 cm perihepatic fluid and gas collection status post removal of the percutaneous drainage catheter. 3. Increased moderate intra and extrahepatic biliary ductal dilation and unchanged mild dilation of the main pancreatic duct without a visible obstructing stone or lesion on CT. These findings may be related to a combination of reservoir effect in the setting of cholecystectomy and possible ampullary stenosis. Recommend correlation for clinical evidence of cholestasis. This could also be further evaluated with MRCP. Dictated by: Mercedes Rose MD The radiology attending physician has personally reviewed this study, and had reviewed and/or edited this written report and agrees with it. Electronically signed by: Cornelia Pierce M.D. Miranda Turcios MD IMG CT PROCEDURES Final Result * (ABNORMAL) eGFR (02/23/2024 9:08 PM POLICY CHECKER) eGFR 24(L) >=60 mL/min/1. 73 m2 Comment: Interpretive Data Reference Interval Normal >/= 90 mL/min/1.73m2 Mildly decreased* 60 - 89 mL/min/1.73m2 Mildly to moderately decreased 45 - 59 mL/min/1.73m2 Moderately to severely decreased 30 - 44 mL/min/1.73m2 Severely decreased 15 - 29 mL/min/1.73m2 Kidney Failure < 15 mL/min/1.73m2 *Relative to young adult level Estimated glomerular filtration rate is determined by the 2020 CKD-EPI equation recommended by the National Kidney [employer] (A Unifying Approach to GFR Estimation: Recommendations of the NKF-ASK Task Force on Reassessing the Inclusion of Race in Diagnosing Kidney Disease, JASN 2020). The CKD-EPI equation should not be used for patients with unstable renal function and has not been validated in children and those over 70. Current interpretive data was last reviewed 2020. Blood 02/23/2024 9:08 PM POLICY CHECKER 02/23/2024 9:33 PM POLICY CHECKER Brijesh Flores MD LAB BLOOD ORDERABLES Final Result Performing Organization Address City/[facility]/ZIP Co de Phone Number [facility] [place] [address] * (ABNORMAL) CBC without differential (02/23/2024 9:08 PM POLICY CHECKER) WBC 10.1(H) 3.8 - 9.9 K/cumm Hgb 6.7(L) 11.9 - 15.5 g/dL [facility] Comment:Hemoglobin delta due to surgical procedure. Hct 21.7(L) 35.6 - 45.5 % [facility] Plt 230 150 - 400 K/cumm [facility] MPV 9.5 9.1 - 12.3 fL [facility] RBC 2.65(L) 3.90 - 5.20 M/cumm [facility] MCV 81.9 81.3 - 96.4 fL [facility] MCH 25.3(L) 27.1 - 33.3 pg [facility] MCHC 30.9(L) 32.3 - 35.7 g/dL [facility] RDW CV 19.4(H) 11.1 - 14.9 % [facility] RDW SD 57.5(H) 35.7 - 48.1 fL [facility] NRBC abs 0.00 0.00 - 0.01 K/cumm [facility] Blood 02/23/2024 9:08 PM POLICY CHECKER 02/23/2024 9:33 PM POLICY CHECKER Brijesh Flores MD LAB BLOOD ORDERABLES Final Result Performing Organization Address City/[facility]/ZIP Co de Phone Number [facility] Department [place] [address] * Vancomycin level random (02/23/2024 9:08 PM POLICY CHECKER) Pathologist [facility] Vancomycin random 10.2 mcg/mL Comment: Interpretive Data No reference ranges have been established for random drug levels. Current Interpretive Data was last revised on 2020. Blood 02/23/2024 9:08 PM POLICY CHECKER 02/23/2024 9:28 PM POLICY CHECKER us Roxanne Fitzgerald MD LAB BLOOD ORDERABLES Final Result [facility] Department [place] [address] * (ABNORMAL) Basic metabolic panel (02/23/2024 9:08 PM POLICY CHECKER) [facility] Sodium 138 135 - 145 mmol/L Potassium, pl 4.1 3.3 - 4.9 mmol/L [facility] Chloride 111(H) 97 - 110 mmol/L [facility] CO2 18(L) 22 - 32 mmol/L [facility] Anion gap 9 2 - 15 mmol/L [facility] BUN 36(H) 6 - 25 mg/dL [facility] Creatinine 2.02(H) 0.60 - 1.10 mg/dL [facility] Glucose 80 70 - 199 mg/dL [facility] Comment: Interpretive Data Fasting glucose >/= 126 mg/dl is diagnostic for diabetes. Fasting is defined as no caloric intake for at least 8 hours. Fasting glucose between 100 mg/dl to 125 mg/dl is diagnostic of prediabetes. In a patient with classic symptoms of hyperglycemia or hyperglycemic crisis, a random glucose >/= 200 mg/dl is diagnostic for diabetes. In the absence of unequivocal hyperglycemia, results should be confirmed by repeat testing. The classification and Diagnosis of Diabetes Diabetes Care 2021; 46: S19-S40. Current interpretive data was last revised 2022. Calcium 10.0 8.5 - 10.3 mg/dL [facility] Blood 02/23/2024 9:08 PM POLICY CHECKER 02/23/2024 9:28 PM POLICY CHECKER us Brijesh Flores MD LAB BLOOD ORDERABLES Final Result Performing Organization Address [facility] Co de Phone Number [facility] Department [place] [address] * (ABNORMAL) Urinalysis reflex to microscopic (02/23/2024 11:11 AM POLICY CHECKER) Color, ur Yellow Yellow Clarity, ur Clear Clear [facility] Specific gravity, ur 1.032(H) 1.003 - 1.030 [facility] pH, urine 6.0 [facility] Comment: Interpretive Data U rine pH is affected by diet, medications, systemic acid-base disturbances, and renal tubular function. pH may affect urinary stone formation. For example, urine pH below 6.0 may help reduce the tendency for calcium phosphate stones and pH greater than 6.0 may reduce the tendency for uric acid stone formation. Source: [facility] Current Interpretive Data was last revised on 2017 Protein, ur ql 1+(A) Negative [facility] Glucose, ur ql Negative Negative [facility] Ketones, ur Negative Negative [facility] Bilirubin, ur Negative Negative [facility] Blood, ur Trace(A) Negative [facility] Urobilinogen, ur <2.0 <2.0 mg/dL [facility] Nitrite, ur Negative Negative [facility] Leukocyte esterase, ur 3+(A) Negative [facility] UA reflex comment Reflex to microscopic UA will be performed. [facility] Urine 02/23/2024 11:1 1 AM POLICY CHECKER 02/23/2024 11:19 AM POLICY CHECKER us Chester Cifuentes MD LAB URINE ORDERABLES Final R esult Performing Organization Address [facility] Co de Phone Number [facility] Department [place] [address] * (ABNORMAL) Urinalysis, microscopic only (02/23/2024 11:11 AM POLICY CHECKER) WBC, ur 11-20(A) 0 - 5 /HPF RBC, ur 3-5(A) 0 - 2 /HPF [facility] Epithelial cells, squamous, ur 1-5 0 - 5 /HPF [facility] Mucous, ur Present(A) [facility] Hyaline casts, ur 1-5 0 - 10 /LPF [facility] Urine 02/23/2024 11:1 1 AM POLICY CHECKER 02/23/2024 11:19 AM POLICY CHECKER us Chester Cifuentes MD LAB URINE ORDERABLES Final R esult [facility] [place] [address] * Blood culture Blood Peripheral (02/23/2024 9:58 AM POLICY CHECKER) Report Final Report: No growth Blood (Peripheral) 02/23/2024 9:58 AM POLICY CHECKER 02/23/2024 10:15 AM POLICY CHECKER Narrative [facility] - 02/27/2024 12:00 PM POLICY CHECKER From a different site than #1. Draw Blood cultures before administration of Antibiotics Collection->Peripheral 1. Blood cultures are incubated for 4 days on a continuously monitored blood culture system. The first report of a negative culture is issued within 24 hours of receipt of the specimen in the laboratory. 2. Positive culture results are reported as soon as they are detected. 3. The most important factor for detection of microbes in the setting of bloodstream infection is the volume of blood submitted for culture. Failure to collect an optimal blood volume can result in false negative blood cultures. 4. For pediatric patients, the recommended blood volume to collect follows a weight based strategy. See the electronic test catalog for collection instructions. 5. For positive blood cultures, a rapid molecular test may be performed for organism identification using the terrence ePlex blood culture identification panel for gram positive (BCID-GP) and gram negative (BCID-GN) organisms. This nucleic acid amplification test detects microbial DNA in positive blood culture broth. This assay has been cleared by the [place] Food and Drug Administration and its performance characteristics have been verified by the [facility] Microbiology Laboratory. For questions about this culture, contact the Microbiology Laboratory at [phone]. Interpretive data was last revised on 23. us Miranda Turcios MD LAB MICROBIOLOGY - GENERAL ORDER ALLYSON Final Result Performing Organization Address [facility]/ZIP Co de Phone Number [facility] Department [place] [address] * Blood culture Blood Peripheral (02/23/2024 9:58 AM POLICY CHECKER) Report Final Report: No growth Blood (Peripheral) 02/23/2024 9:58 AM POLICY CHECKER 02/23/2024 10:16 AM POLICY CHECKER Narrative [facility] - 02/27/2024 12:00 PM POLICY CHECKER Draw Blood cultures before administration of Antibiotics Collection->Peripheral 1. Blood cultures are incubated for 4 days on a continuously monitored blood culture system. The first report of a negative culture is issued within 24 hours of receipt of the specimen in the laboratory. 2. Positive culture results are reported as soon as they are detected. 3. The most important factor for detection of microbes in the setting of bloodstream infection is the volume of blood submitted for culture. Failure to collect an optimal blood volume can result in false negative blood cultures. 4. For pediatric patients, the recommended blood volume to collect follows a weight based strategy. See the electronic test catalog for collection instructions. 5. For positive blood cultures, a rapid molecular test may be performed for organism identification using the terrence ePlex blood culture identification panel for gram positive (BCID-GP) and gram negative (BCID-GN) organisms. This nucleic acid amplification test detects microbial DNA in positive blood culture broth. This assay has been cleared by the [place] Food and Drug Administration and its performance characteristics have been verified by the [facility] Microbiology Laboratory. For questions about this culture, contact the Microbiology Laboratory at [phone]. Interpretive data was last revised on 23. Miranda Turcios MD LAB MICROBIOLOGY - GENERAL ORDER ALLYSON Final Result Performing Organization Address [facility] Co de Phone Number [facility] [place] [address] * POCT lactate (02/23/2024 12:01 AM POLICY CHECKER) Lactate POC i-STAT 1.4 0.7 - 2.2 mmol/L Blood 02/23/2024 12:0 1 AM POLICY CHECKER 02/23/2024 12:01 AM POLICY CHECKER us Chester Cifuentes MD LAB POCT ORDERABLES - DEVICE Final Result Performing Organization Address [facility] [place] [address] * POCT glucose (02/22/2024 11:59 PM POLICY CHECKER) Glucose, POC 95 70 - 199 mg/dL Blood 02/22/2024 11:5 9 PM POLICY CHECKER 02/22/2024 11:59 PM POLICY CHECKER us Chester Cifuentes MD LAB POCT ORDERABLES - DEVICE Final Result Performing Organization Address [facility] [place] [address] * CT Abdomen Pelvis W Contrast (02/22/2024 10:57 PM POLICY CHECKER) Anatomical Region Laterality Modality Body N/A Computed Tomogra phy 02/22/2024 11:2 0 PM POLICY CHECKER Impressions 02/23/2024 9:05 AM POLICY CHECKER 1. New pleural thickening and enhancement adjacent to a loculated right lower lobe fluid and gas collection, compatible with empyema. Given the few locules of gas within this, there is suspicion for communication to the right perihepatic collection of gas. 2. 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 Of note, small bowel giving rise to the fistula is in close approximation to the duodenum though without definite enteroenteric fistula. 3. Small fluid and gas collection along the distal right psoas in the right lower quadrant, similarly arising from small bowel proximal to the enterocolic anastomosis. 4. Increased intrahepatic and extra hepatic bile or ductal dilatation. Heterogeneous enhancement in the left hemiliver, which can be seen in cholangitis. Correlation with symptoms and biliary enzymes is recommended. The Non Critical results were discussed with Dr. Louise by Dr. Aldrich on 02/22/2024 11:19 PM ADDENDUM - This addendum is being placed on the report for a time dependent finding on a patient who is still in the emergency room (3B). Enhancing left renal mass measuring 1.9 cm that has not substantially changed since 2018 but likely represents a renal cell carcinoma. Urologic consultation is recommended on a non-urgent basis. These findings were communicated to Dr. Turcios by Dr. Aldrich immediately upon identification of the findings at readout at 7:29 AM on 02/23/2024. Dictated by: Alejo Aldrich M.D. The radiology attending physician has personally reviewed this study, and had reviewed and/or edited this written report and agrees with it. Electronically signed by: Indio Chavez M.D. Narrative 02/23/2024 9:05 AM POLICY CHECKER EXAMINATION: CT ABDOMEN PELVIS W CONTRAST HISTORY: Abdominal infection suspected. Patient is status post colectomy in December, gated by perihepatic collections status post IR drainage, presenting with recurrent symptoms. TECHNIQUE: Transaxial computed tomographic images of the abdomen and pelvis were obtained according to the standard protocol after the uneventful administration of 70 mL of intravenous contrast. COMPARISON: Multiple, most recently CT from 01/27/2024. FINDINGS: In the imaged right lower lobe, there is a predominantly fluid and gas containing collection with surrounding pleural thickening and enhancement. Inferior to the right hemidiaphragm, there is a lentiform gas containing collection exerting mass effect upon the liver measuring up to 4 3.7 x 11.1 x 9.5 cm; this is in the location of the previously drained perihepatic collection, with interval removal of percutaneous drainage catheter. This collection appears to communicate with loop of small bowel proximal and superior to the ileocolic anastomosis (2/90). Inferiorly along the right distal psoas musculature, there is a fluid and gas collection measuring up to 2.2 cm (2/116). Right lower lobe atelectasis. Tiny juxtapleural nodule in the right middle lobe (2/13) is unchanged. Trace left pleural effusion with associated atelectasis. Imaged heart is enlarged with multivessel coronary artery calcifications. Small pericardial effusion. Heterogeneous enhancement of the left hemiliver with increased intrahepatic and extrahepatic biliary ductal dilatation. Of note, the second portion of the duodenum is in close approximation to the loop of small bowel giving rise to the fistula (series 2 image 85). The main pancreatic duct has also increased in caliber compared to prior. Surgically absent gallbladder. Spleen and right adrenal glands within normal limits. Nodular thickening of the left adrenal gland. Left renal cortical scarring. No suspicious renal lesion or hydronephrosis. Normal urinary bladder. No evidence of bowel obstruction. No ascites. Multiple mildly enlarged retroperitoneal lymph nodes, which may be reactive. Non-aneurysmal aorta with atherosclerotic change. No aggressive osseous lesion. Multilevel degenerative changes of the spine with unchanged height loss of T10-T12. Paget's disease involving the left pelvis. Procedure Note Indio Chavez MD - 02/23/2024 EXAMINATION: CT ABDOMEN PELVIS W CONTRAST HISTORY: Abdominal infection suspected. Patient is status post colectomy in December, gated by perihepatic collections status post IR drainage, presenting with recurrent symptoms. TECHNIQUE: Transaxial computed tomographic images of the abdomen and pelvis were obtained according to the standard protocol after the uneventful administration of 70 mL of intravenous contrast. COMPARISON: Multiple, most recently CT from 01/27/2024. FINDINGS: In the imaged right lower lobe, there is a predominantly fluid and gas containing collection with surrounding pleural thickening and enhancement. Inferior to the right hemidiaphragm, there is a lentiform gas containing collection exerting mass effect upon the liver measuring up to 4 3.7 x 11.1 x 9.5 cm; this is in the location of the previously drained perihepatic collection, with interval removal of percutaneous drainage catheter. This collection appears to communicate with loop of small bowel proximal and superior to the ileocolic anastomosis (2/90). Inferiorly along the right distal psoas musculature, there is a fluid and gas collection measuring up to 2.2 cm (2/116). Right lower lobe atelectasis. Tiny juxtapleural nodule in the right middle lobe (2/13) is unchanged. Trace left pleural effusion with associated atelectasis. Imaged heart is enlarged with multivessel coronary artery calcifications. Small pericardial effusion. Heterogeneous enhancement of the left hemiliver with increased intrahepatic and extrahepatic biliary ductal dilatation. Of note, the second portion of the duodenum is in close approximation to the loop of small bowel giving rise to the fistula (series 2 image 85). The main pancreatic duct has also increased in caliber compared to prior. Surgically absent gallbladder. Spleen and right adrenal glands within normal limits. Nodular thickening of the left adrenal gland. Left renal cortical scarring. No suspicious renal lesion or hydronephrosis. Normal urinary bladder. No evidence of bowel obstruction. No ascites. Multiple mildly enlarged retroperitoneal lymph nodes, which may be reactive. Non-aneurysmal aorta with atherosclerotic change. No aggressive osseous lesion. Multilevel degenerative changes of the spine with unchanged height loss of T10-T12. Paget's disease involving the left pelvis. IMPRESSION: 1. New pleural thickening and enhancement adjacent to a loculated right lower lobe fluid and gas collection, compatible with empyema. Given the few locules of gas within this, there is suspicion for communication to the right perihepatic collection of gas. 2. 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 Of note, small bowel giving rise to the fistula is in close approximation to the duodenum though without definite enteroenteric fistula. 3. Small fluid and gas collection along the distal right psoas in the right lower quadrant, similarly arising from small bowel proximal to the enterocolic anastomosis. 4. Increased intrahepatic and extra hepatic bile or ductal dilatation. Heterogeneous enhancement in the left hemiliver, which can be seen in cholangitis. Correlation with symptoms and biliary enzymes is recommended. The Non Critical results were discussed with Dr. Louise by Dr. Aldrich on 02/22/2024 11:19 PM ADDENDUM - This addendum is being placed on the report for a time dependent finding on a patient who is still in the emergency room (3B). Enhancing left renal mass measuring 1.9 cm that has not substantially changed since 2018 but likely represents a renal cell carcinoma. Urologic consultation is recommended on a non-urgent basis. These findings were communicated to Dr. Turcios by Dr. Aldrich immediately upon identification of the findings at readout at 7:29 AM on 02/23/2024. Dictated by: Alejo H Valdemar, M.D. The radiology attending physician has personally reviewed this study, and had reviewed and/or edited this written report and agrees with it. Electronically signed by: Indio Chavez M.D. us Emiliano Louise MD IMG CT PROCEDURES Final Result * (ABNORMAL) eGFR (02/22/2024 8:41 PM POLICY CHECKER) Pathologist [facility] eGFR 17(L) >=60 mL/min/1. 73 m2 Comment: Interpretive Data Reference Interval Normal >/= 90 mL/min/1.73m2 Mildly decreased* 60 - 89 mL/min/1.73m2 Mildly to moderately decreased 45 - 59 mL/min/1.73m2 Moderately to severely decreased 30 - 44 mL/min/1.73m2 Severely decreased 15 - 29 mL/min/1.73m2 Kidney Failure < 15 mL/min/1.73m2 *Relative to young adult level Estimated glomerular filtration rate is determined by the 2020 CKD-EPI equation recommended by the National Kidney [employer] (A Unifying Approach to GFR Estimation: Recommendations of the NKF-ASK Task Force on Reassessing the Inclusion of Race in Diagnosing Kidney Disease, JASN 2020). The CKD-EPI equation should not be used for patients with unstable renal function and has not been validated in children and those over 70. Current interpretive data was last reviewed 2020. Blood 02/22/2024 8:41 PM POLICY CHECKER 02/22/2024 8:49 PM POLICY CHECKER us Heriberto Valencia MD LAB BLOOD ORDERABLES Final Result [facility] [place] [address] * (ABNORMAL) Differential, auto (02/22/2024 8:41 PM POLICY CHECKER) Pathologist [facility] Neutrophil abs 8.7(H) 1.5 - 6.5 K/cumm Imm gran abs 0.1 0.0 - 0.1 K/cumm [facility] Lymphocyte abs 1.5 0.8 - 3.3 K/cumm [facility] Monocyte abs 0.6 0.2 - 0.8 K/cumm [facility] Eosinophil abs 0.1 0.0 - 0.5 K/cumm [facility] Basophil abs 0.0 0.0 - 0.1 K/cumm [facility] Neutrophil pct 79.7 % [facility] Comment: Interpretive Data Percent cell count reference ranges are not reported, since discordance with absolute values may lead to misinterpretation of CBC data. Current Interpretive Data was last revised on 2017. Imm gran pct 0.9 % [facility] Comment: Interpretive Data Percent cell count reference ranges are not reported, since discordance with absolute values may lead to misinterpretation of CBC data. Current Interpretive Data was last revised on 2017. Lymphocyte pct 13.4 % [facility] Comment: Interpretive Data Percent cell count reference ranges are not reported, since discordance with absolute values may lead to misinterpretation of CBC data. Current Interpretive Data was last revised on 2017. Monocyte pct 5.2 % [facility] Comment: Interpretive Data Percent cell count reference ranges are not reported, since discordance with absolute values may lead to misinterpretation of CBC data. Current Interpretive Data was last revised on 2017. Eosinophil pct 0.5 % [facility] Comment: Interpretive Data Percent cell count reference ranges are not reported, since discordance with absolute values may lead to misinterpretation of CBC data. Current Interpretive Data was last revised on 2017. Basophil pct 0.3 % [facility] Comment: Interpretive Data Percent cell count reference ranges are not reported, since discordance with absolute values may lead to misinterpretation of CBC data. Current Interpretive Data was last revised on 2017. Blood 02/22/2024 8:41 PM POLICY CHECKER 02/22/2024 8:48 PM POLICY CHECKER us Heriberto Valencia MD LAB BLOOD ORDERABLES Final Result [facility] [place] [address] * (ABNORMAL) CBC with auto differential (02/22/2024 8:41 PM POLICY CHECKER) [facility] WBC 10.9(H) 3.8 - 9.9 K/cumm Hgb 10.1(L) 11.9 - 15.5 g/dL [facility] Hct 33.1(L) 35.6 - 45.5 % [facility] Plt 217 150 - 400 K/cumm [facility] MPV 10.2 9.1 - 12.3 fL [facility] RBC 3.96 3.90 - 5.20 M/cumm [facility] MCV 83.6 81.3 - 96.4 fL [facility] MCH 25.5(L) 27.1 - 33.3 pg [facility] MCHC 30.5(L) 32.3 - 35.7 g/dL [facility] RDW CV 19.0(H) 11.1 - 14.9 % [facility] RDW SD 57.6(H) 35.7 - 48.1 fL [facility] NRBC abs 0.02(H) 0.00 - 0.01 K/cumm [facility] Blood 02/22/2024 8:41 PM POLICY CHECKER 02/22/2024 8:48 PM POLICY CHECKER us Chester Cifuentes MD LAB BLOOD ORDERABLES Final R esult [facility] [place] [address] * (ABNORMAL) Comprehensive metabolic panel (02/22/2024 8:41 PM POLICY CHECKER) [facility] Sodium 137 135 - 145 mmol/L Potassium, pl 4.5 3.3 - 4.9 mmol/L [facility] Chloride 105 97 - 110 mmol/L [facility] CO2 18(L) 22 - 32 mmol/L [facility] Anion gap 14 2 - 15 mmol/L [facility] BUN 38(H) 6 - 25 mg/dL [facility] Creatinine 2.76(H) 0.60 - 1.10 mg/dL [facility] Glucose 67(L) 70 - 199 mg/dL [facility] Comment: Interpretive Data Fasting glucose >/= 126 mg/dl is diagnostic for diabetes. Fasting is defined as no caloric intake for at least 8 hours. Fasting glucose between 100 mg/dl to 125 mg/dl is diagnostic of prediabetes. In a patient with classic symptoms of hyperglycemia or hyperglycemic crisis, a random glucose >/= 200 mg/dl is diagnostic for diabetes. In the absence of unequivocal hyperglycemia, results should be confirmed by repeat testing. The classification and Diagnosis of Diabetes Diabetes Care 2021; 46: S19-S40. Current interpretive data was last revised 2022. Calcium 10.8(H) 8.5 - 10.3 mg/dL [facility] Bilirubin, total 0.5 0.1 - 1.2 mg/dL [facility] Protein, pl 9.2(H) 6.5 - 8.5 g/dL [facility] Albumin 2.4(L) 3.5 - 5.0 g/dL [facility] Alk phos 180(H) 40 - 130 Units/L [facility] ALT 15 7 - 45 Units/L [facility] AST 25 10 - 45 Units/L [facility] Blood 02/22/2024 8:41 PM POLICY CHECKER 02/22/2024 8:49 PM POLICY CHECKER us Chester Cifuentes MD LAB BLOOD ORDERABLES Final R esult [facility] One [facility] [place] [address] * XR Chest PA Lateral 2 Views (02/22/2024 6:18 PM POLICY CHECKER) Anatomical Region Laterality Modality Body, Chest N/A Computed Radiogr aphy 02/22/2024 6:22 PM POLICY CHECKER Impressions 02/22/2024 6:30 PM POLICY CHECKER Comparison made to chest radiograph dated 01/24/2024. Tracheostomy tube in place. Coronary artery stent. Unchanged moderate right-sided pleural effusion with associated atelectasis. Left lung is clear. No pneumothorax. Cardiomediastinal silhouette appears unchanged. Dictated by: Balaji Pena MD The radiology attending physician has personally reviewed this study, and had reviewed and/or edited this written report and agrees with it. Electronically signed by: Gifty Saleem M.D. Narrative 02/22/2024 6:30 PM POLICY CHECKER EXAMINATION: 2 view chest radiograph Procedure Note Gifty Saleem MD - 02/22/2024 EXAMINATION: 2 view chest radiograph IMPRESSION: Comparison made to chest radiograph dated 01/24/2024. Tracheostomy tube in place. Coronary artery stent. Unchanged moderate right-sided pleural effusion with associated atelectasis. Left lung is clear. No pneumothorax. Cardiomediastinal silhouette appears unchanged. Dictated by: Balaji Pena MD The radiology attending physician has personally reviewed this study, and had reviewed and/or edited this written report and agrees with it. Electronically signed by: Gifty Saleem M.D. us Chester Cifuentes MD IMG XR PROCEDURES Final Resu lt * ECG 12-LEAD (02/22/2024 5:23 PM POLICY CHECKER) Narrative [facility] - 02/22/2024 5:23 PM POLICY CHECKER Dakota Melchor MD 02/22/2024 5:25 PM ECG 12 lead Date/Time: 02/22/2024 5:23 PM Performed by: Dakota Melchor MD Authorized by: Heriberto Valencia MD Rate: ECG rate: 92 ECG rate assessment: normal Rhythm: Rhythm: other rhythm Ectopy: Ectopy: PVCs PVCs: Infrequent QRS: QRS axis: Left QRS intervals: Normal Conduction: Conduction: normal ST segments: ST segments: Non-specific Elevation: V2 Depression: AVL Previous ECG: Previous ECG: Unavailable Interpretation: Interpretation: non-specific Recommended Follow-up: Recommended follow up: further workup in the ED Procedure Note Dakota Melchor MD - 02/22/2024 5:23 PM CST Procedure ECG 12 lead Date/Time: 02/22/2024 5:23 PM Performed by: Dakota Melchor MD Authorized by: Heriberto Valencia MD Rate: ECG rate: 92 ECG rate assessment: normal Rhythm: Rhythm: other rhythm Ectopy: Ectopy: PVCs PVCs: Infrequent QRS: QRS axis: Left QRS intervals: Normal Conduction: Conduction: normal ST segments: ST segments: Non-specific Elevation: V2 Depression: AVL Previous ECG: Previous ECG: Unavailable Interpretation: Interpretation: non-specific Recommended Follow-up: Recommended follow up: further workup in the ED Dakota Melchor MD 02/22/24 1725 us Chester Cifuentes MD ECG ORDERABLES Final Result Performing Organization Address [facility] Co de Phone Number [facility] * CS GLUCOSE (02/14/2024 4:45 AM POLICY CHECKER) Glucose 70 70 - 199 mg/dL [facility] Comment: Interpretive Data Fasting glucose >/= 126 mg/dl is diagnostic for diabetes. Fasting is defined as no caloric intake for at least 8 hours. Fasting glucose between 100 mg/dl to 125 mg/dl is diagnostic of prediabetes. In a patient with classic symptoms of hyperglycemia or hyperglycemic crisis, a random glucose >/= 200 mg/dl is diagnostic for diabetes. In the absence of unequivocal hyperglycemia, results should be confirmed by repeat testing. The classification and Diagnosis of Diabetes Diabetes Care 202; 46: S19-S40. Current interpretive data was last revised 2022. Testing performed by: [facility], [address] [facility], [place]., [address] Blood 02/14/2024 4:45 AM POLICY CHECKER 02/14/2024 7:13 AM POLICY CHECKER us Nettie Reyes BACK TENDER FOURDRINIER LAB BLOOD ORDERABLES Final Result Performing Organization Address [facility] Co de Phone Number [facility] Department [place] [address] * (ABNORMAL) eGFR (02/14/2024 4:45 AM POLICY CHECKER) eGFR 37(L) >=60 mL/min/1. 73 m2 [facility] Comment: Interpretive Data Reference Interval Normal >/= 90 mL/min/1.73m2 Mildly decreased* 60 - 89 mL/min/1.73m2 Mildly to moderately decreased 45 - 59 mL/min/1.73m2 Moderately to severely decreased 30 - 44 mL/min/1.73m2 Severely decreased 15 - 29 mL/min/1.73m2 Kidney Failure < 15 mL/min/1.73m2 *Relative to young adult level Estimated glomerular filtration rate is determined by the 2020 CKD-EPI equation recommended by the National Kidney Foundation (A Unifying Approach to GFR Estimation: Recommendations of the NKF-ASK Task Force on Reassessing the Inclusion of Race in Diagnosing Kidney Disease, JASN 2020). The CKD-EPI equation should not be used for patients with unstable renal function and has not been validated in children and those over 70. Current interpretive data was last reviewed 2020. Testing performed by: [facility], [address] [place] [address]., [id number] Blood 02/14/2024 4:45 AM POLICY CHECKER 02/14/2024 7:40 AM POLICY CHECKER Nettie Reyes NP LAB BLOOD ORDERABLES Final Result [facility] Department [place] [address] * Differential, auto (02/14/2024 4:45 AM POLICY CHECKER) Neutrophil abs 2.2 1.5 - 6.5 K/cumm [facility] Comment:Testing performed by : [facility], [address] [place]., [address] Imm gran abs 0.0 0.0 - 0.1 K/cumm [facility] Comment:Testing performed by : [facility], [address] [place]., [address] Lymphocyte abs 1.3 0.8 - 3.3 K/cumm [facility] Comment:Testing performed by : [facility], [address] [place]., [address] Monocyte abs 0.7 0.2 - 0.8 K/cumm [facility] Comment:Testing performed by : [facility], [address] [place]., [address] Eosinophil abs 0.2 0.0 - 0.5 K/cumm [facility] Comment:Testing performed by : [facility], [address] [place]., [address] Basophil abs 0.0 0.0 - 0.1 K/cumm [facility] Comment:Testing performed by : [facility], [address] [place]., [address] Neutrophil pct 49.5 % [facility] Comment: Interpretive Data Percent cell count reference ranges are not reported, since discordance with absolute values may lead to misinterpretation of CBC data. Current Interpretive Data was last revised on 2017. Testing performed by: [facility], [address] [place]., [address] Imm gran pct 0.5 % [facility] Comment: Interpretive Data Percent cell count reference ranges are not reported, since discordance with absolute values may lead to misinterpretation of CBC data. Current Interpretive Data was last revised on 2017. Testing performed by: [facility], [address] [place] [address]., [address] Lymphocyte pct 30.4 % [facility] Comment: Interpretive Data Percent cell count reference ranges are not reported, since discordance with absolute values may lead to misinterpretation of CBC data. Current Interpretive Data was last revised on 2017. Testing performed by: [facility], [address] [place] [address]., [address] Monocyte pct 15.4 % [facility] Comment: Interpretive Data Percent cell count reference ranges are not reported, since discordance with absolute values may lead to misinterpretation of CBC data. Current Interpretive Data was last revised on 2017. Testing performed by: [facility], [address] [place] [address] [place]., [address] Eosinophil pct 3.7 % [facility] Comment: Interpretive Data Percent cell count reference ranges are not reported, since discordance with absolute values may lead to misinterpretation of CBC data. Current Interpretive Data was last revised on 2017. Testing performed by: [facility], [address] [place]., [address] Basophil pct 0.5 % [facility] Comment: Interpretive Data Percent cell count reference ranges are not reported, since discordance with absolute values may lead to misinterpretation of CBC data. Current Interpretive Data was last revised on 2017. Testing performed by: [facility], [address] [facility], [address] Blood 02/14/2024 4:45 AM POLICY CHECKER 02/14/2024 7:13 AM POLICY CHECKER Nettie Reyes NP LAB BLOOD ORDERABLES Final Result [facility] One [facility] Department [place] [address] * (ABNORMAL) Comprehensive metabolic panel, without glucose (Outreach) (02/14/2024 4:45 AM POLICY CHECKER) Sodium 141 135 - 145 mmol/L [facility] Comment:Testing performed by : [facility], [address] [place] [address]., [address] Potassium, pl 4.0 3.3 - 4.9 mmol/L [facility] Comment:Testing performed by : [facility], [address] [place] [address]., [address] Chloride 112(H) 97 - 110 mmol/L [facility] Comment:Testing performed by : [facility], [address] [place]., [address] CO2 20(L) 22 - 32 mmol/L [facility] Comment:Testing performed by : [facility], [address] [place]., [address] Anion gap 9 2 - 15 mmol/L [facility] Comment:Testing performed by : [facility], [address] [facility], [address] BUN 13 6 - 25 mg/dL [facility] Comment:Testing performed by : [facility], [address] [facility], [address] Creatinine 1.43(H) 0.60 - 1.10 mg/dL [facility] Comment:Testing performed by : [facility], [address] [facility], [address] Calcium 9.6 8.5 - 10.3 mg/dL [facility] Comment:Testing performed by : [facility], [address] [facility], [address] Protein, pl 7.0 6.5 - 8.5 g/dL [facility] Comment:Testing performed by : [facility], [address] [facility], [address] Albumin 2.2(L) 3.5 - 5.0 g/dL [facility] Comment:Testing performed by : [facility], [address] [facility], [address] Bilirubin, total 0.3 0.1 - 1.2 mg/dL [facility] Comment:Testing performed by : [facility], [address] [place] [address], [address] Alk phos 126 40 - 130 Units/L [facility] Comment:Testing performed by : [facility], [address] [place] [address], [address] AST 18 10 - 45 Units/L [facility] Comment:Testing performed by : [facility], [address] [facility], [address] ALT 16 7 - 45 Units/L [facility] Comment:Testing performed by : [facility], [address] [place] [address], [address] Blood 02/14/2024 4:45 AM POLICY CHECKER 02/14/2024 7:13 AM POLICY CHECKER Nettie Reyes NP LAB BLOOD ORDERABLES Final Result [facility] One [facility] Department [place] [address] * (ABNORMAL) CBC with auto differential (02/14/2024 4:45 AM POLICY CHECKER) WBC 4.3 3.8 - 9.9 K/cumm [facility] Comment:Testing performed by : [facility], [address] [place] [address], [address] Hgb 7.4(L) 11.9 - 15.5 g/dL [facility] Comment:Testing performed by : [address], [address] Hct 24.1(L) 35.6 - 45.5 % [facility] Comment:Testing performed by : [facility], [address] [place] [address], [address] Plt 149(L) 150 - 400 K/cumm [facility] Comment:Testing performed by : [facility], [address] [place] [address], [address] MPV 9.6 9.1 - 12.3 fL [facility] Comment:Testing performed by : [facility], [address] [place] [address], [address] RBC 2.86(L) 3.90 - 5.20 M/cumm [facility] Comment:Testing performed by : [address], [address] MCV 84.3 81.3 - 96.4 fL [facility] Comment:Testing performed by : [facility], [address] [place] [address], [address] MCH 25.9(L) 27.1 - 33.3 pg [facility] Comment:Testing performed by : [facility], [address] [facility], [address] MCHC 30.7(L) 32.3 - 35.7 g/dL [facility] Comment:Testing performed by : [facility], [address] [facility], [address] RDW CV 18.3(H) 11.1 - 14.9 % [facility] Comment:Testing performed by : [facility], [address] [facility], [address] RDW SD 55.6(H) 35.7 - 48.1 fL [facility] Comment:Testing performed by : [facility], [address] [facility], [address] NRBC abs 0.00 0.00 - 0.01 K/cumm [facility] Comment:Testing performed by : [facility], [address] [facility], [address] Blood 02/14/2024 4:45 AM POLICY CHECKER 02/14/2024 7:13 AM POLICY CHECKER Nettie Reyes BACK TENDER [employer] LAB BLOOD ORDERABLES Final Result [facility] One [facility] Department [place] [address] * (ABNORMAL) CBC without differential (02/14/2024 4:45 AM POLICY CHECKER) Pathologist [facility] WBC 4.3 3.8 - 9.9 K/cumm [facility] Comment:Testing performed by : [facility], [address] [place]., [address] Hgb 7.4(L) 11.9 - 15.5 g/dL [facility] Comment:Testing performed by : [facility], [address] [facility], [address] Hct 24.1(L) 35.6 - 45.5 % [facility] Comment:Testing performed by : [facility], [address] [facility], [address] Plt 149(L) 150 - 400 K/cumm [facility] Comment:Testing performed by : [facility], [address] [facility], [address] MPV 9.6 9.1 - 12.3 fL [facility] Comment:Testing performed by : [facility], [address] [facility], [address] RBC 2.86(L) 3.90 - 5.20 M/cumm [facility] Comment:Testing performed by : [facility], [address] [facility], [address] MCV 84.3 81.3 - 96.4 fL [facility] Comment:Testing performed by : [facility], [address] [facility], [address] MCH 25.9(L) 27.1 - 33.3 pg [facility] Comment:Testing performed by : [facility], [address] [facility], [address] MCHC 30.7(L) 32.3 - 35.7 g/dL [facility] Comment:Testing performed by : [facility], [address] [facility], [address] RDW CV 18.3(H) 11.1 - 14.9 % [facility] Comment:Testing performed by : [facility], [address] [place] [address], [address] RDW SD 55.6(H) 35.7 - 48.1 fL [facility] Comment:Testing performed by : [facility], [address] [facility], [address] NRBC abs 0.00 0.00 - 0.01 K/cumm [facility] Comment:Testing performed by : [facility], [address] [facility], [address] Blood 02/14/2024 4:45 AM POLICY CHECKER 02/14/2024 7:13 AM POLICY CHECKER us Nettie Reyes BACK TENDER [employer]DR[employer] LAB BLOOD ORDERABLES Final Result [facility] Department [place] [address] * IR Inject Abscess Catheter (02/11/2024 11:15 AM POLICY CHECKER) Anatomical Region Laterality Modality Body N/A Radio Fluoroscop y 02/11/2024 11:2 5 AM POLICY CHECKER Impressions 02/11/2024 5:00 PM POLICY CHECKER Improving collection. Catheter was removed. PLAN: No further follow-up with interventional radiology required. If questions arise, please contact us by calling [phone]. Dictated by: Maribel Chairez M.D. The radiology attending physician has personally reviewed this study, and had reviewed and/or edited this written report and agrees with it. Electronically signed by: Mio Desai M.D. Narrative 02/11/2024 5:00 PM POLICY CHECKER EXAMINATION: DRAINAGE CATHETER EVALUATION AND REMOVAL HISTORY: 83-year-old woman with right upper quadrant drain placed 01/19/2024 for subphrenic/perihepatic fluid collection. There is minimal output from the drainage catheter over the last several days. ATTENDING PRESENCE: Mio Desai M.D., the attending radiologist, was present from the beginning to the end of the procedure. SEDATION: The patient did not require conscious sedation for the procedure. TECHNIQUE: Prior to beginning the procedure, [place] Protocol was used to confirm the patient's identity and planned procedure. Fluoroscopy time has been recorded in the electronic medical record. After obtaining a twister operator image, the catheter was injected with dilute contrast and multiple fluoroscopic images obtained. The sutures on the catheter were cut and the catheter was removed without difficulty. A sterile dressing was applied to the skin site. ESTIMATED BLOOD LOSS: Minimal. CONDITION: Stable DISCHARGED TO: Recovery and then to Home. FINDINGS: Images from the catheter check demonstrate the cavity describe interval change in size, configuration, presence of fistula, etc. The catheter was draining describe fluid color, consistency and nature. Procedure Note Mio Desai MD - 02/11/2024 EXAMINATION: DRAINAGE CATHETER EVALUATION AND REMOVAL HISTORY: 83-year-old woman with right upper quadrant drain placed 01/19/2024 for subphrenic/perihepatic fluid collection. There is minimal output from the drainage catheter over the last several days. ATTENDING PRESENCE: Mio Desai M.D., the attending radiologist, was present from the beginning to the end of the procedure. SEDATION: The patient did not require conscious sedation for the procedure. TECHNIQUE: Prior to beginning the procedure, [place] Protocol was used to confirm the patient's identity and planned procedure. Fluoroscopy time has been recorded in the electronic medical record. After obtaining a twister operator image, the catheter was injected with dilute contrast and multiple fluoroscopic images obtained. The sutures on the catheter were cut and the catheter was removed without difficulty. A sterile dressing was applied to the skin site. ESTIMATED BLOOD LOSS: Minimal. CONDITION: Stable DISCHARGED TO: Recovery and then to Home. FINDINGS: Images from the catheter check demonstrate the cavity describe interval change in size, configuration, presence of fistula, etc. The catheter was draining describe fluid color, consistency and nature. IMPRESSION: Improving collection. Catheter was removed. PLAN: No further follow-up with interventional radiology required. If questions arise, please contact us by calling [phone]. Dictated by: Maribel Chairez M.D. The radiology attending physician has personally reviewed this study, and had reviewed and/or edited this written report and agrees with it. Electronically signed by: Mio Desai M.D. Romy DAVIS IMG IR PROCEDURES Final Result * CS GLUCOSE (02/10/2024 6:41 AM POLICY CHECKER) Glucose 78 70 - 199 mg/dL [facility] Comment: Interpretive Data Fasting glucose >/= 126 mg/dl is diagnostic for diabetes. Fasting is defined as no caloric intake for at least 8 hours. Fasting glucose between 100 mg/dl to 125 mg/dl is diagnostic of prediabetes. In a patient with classic symptoms of hyperglycemia or hyperglycemic crisis, a random glucose >/= 200 mg/dl is diagnostic for diabetes. In the absence of unequivocal hyperglycemia, results should be confirmed by repeat testing. The classification and Diagnosis of Diabetes Diabetes Care 202; 46: S19-S40. Current interpretive data was last revised 2022. Testing performed by: [facility], [address] [place] [address]., [address] Blood 02/10/2024 6:41 AM POLICY CHECKER 02/10/2024 12:21 PM POLICY CHECKER Medicine LAB BLOOD ORDERABLES Final Resul t [facility] [place] [address] * (ABNORMAL) eGFR (02/10/2024 6:41 AM POLICY CHECKER) eGFR 41(L) >=60 mL/min/1. 73 m2 [facility] Comment: Interpretive Data Reference Interval Normal >/= 90 mL/min/1.73m2 Mildly decreased* 60 - 89 mL/min/1.73m2 Mildly to moderately decreased 45 - 59 mL/min/1.73m2 Moderately to severely decreased 30 - 44 mL/min/1.73m2 Severely decreased 15 - 29 mL/min/1.73m2 Kidney Failure < 15 mL/min/1.73m2 *Relative to young adult level Estimated glomerular filtration rate is determined by the 2020 CKD-EPI equation recommended by the National Kidney Foundation (A Unifying Approach to GFR Estimation: Recommendations of the NKF-ASK Task Force on Reassessing the Inclusion of Race in Diagnosing Kidney Disease, JASN 2020). The CKD-EPI equation should not be used for patients with unstable renal function and has not been validated in children and those over 70. Current interpretive data was last reviewed 2020. Testing performed by: [facility], [address] [place] [address]., [address] Blood 02/10/2024 6:41 AM POLICY CHECKER 02/10/2024 12:26 PM POLICY CHECKER Medicine LAB BLOOD ORDERABLES Final Resul t [facility] [place] [address] * Differential, auto (02/10/2024 6:41 AM POLICY CHECKER) Neutrophil abs 2.6 1.5 - 6.5 K/cumm [facility] Comment:Testing performed by : [facility], [address] [place] [address]., [address] Imm gran abs 0.0 0.0 - 0.1 K/cumm [facility] Comment:Testing performed by : [facility], [address] [place] [address]., [address] Lymphocyte abs 1.0 0.8 - 3.3 K/cumm [facility] Comment:Testing performed by : [facility], [address] [place] [address]., [address] Monocyte abs 0.8 0.2 - 0.8 K/cumm [facility] Comment:Testing performed by : [facility], [address] [place] [address]., [address] Eosinophil abs 0.2 0.0 - 0.5 K/cumm [facility] Comment:Testing performed by : [facility], [address] [place] [address]., [address] Basophil abs 0.0 0.0 - 0.1 K/cumm [facility] Comment:Testing performed by : [facility], [address] [place] [address]., [address] Neutrophil pct 56.8 % [facility] Comment: Interpretive Data Percent cell count reference ranges are not reported, since discordance with absolute values may lead to misinterpretation of CBC data. Current Interpretive Data was last revised on 2017. Testing performed by: [facility], [address] [place]., [address] Imm gran pct 0.7 % [facility] Comment: Interpretive Data Percent cell count reference ranges are not reported, since discordance with absolute values may lead to misinterpretation of CBC data. Current Interpretive Data was last revised on 2017. Testing performed by: [facility], [address] [place]., [address] Lymphocyte pct 21.7 % [facility] Comment: Interpretive Data Percent cell count reference ranges are not reported, since discordance with absolute values may lead to misinterpretation of CBC data. Current Interpretive Data was last revised on 2017. Testing performed by: [facility], [address] [place]., [address] Monocyte pct 17.1 % [facility] Comment: Interpretive Data Percent cell count reference ranges are not reported, since discordance with absolute values may lead to misinterpretation of CBC data. Current Interpretive Data was last revised on 2017. Testing performed by: [facility], [address] [place]., [address] Eosinophil pct 3.3 % [facility] Comment: Interpretive Data Percent cell count reference ranges are not reported, since discordance with absolute values may lead to misinterpretation of CBC data. Current Interpretive Data was last revised on 2017. Testing performed by: [facility], [address] [place]., [address] Basophil pct 0.4 % [facility] Comment: Interpretive Data Percent cell count reference ranges are not reported, since discordance with absolute values may lead to misinterpretation of CBC data. Current Interpretive Data was last revised on 2017. Testing performed by: [facility], [address] [place]., [address] Blood 02/10/2024 6:41 AM POLICY CHECKER 02/10/2024 12:22 PM POLICY CHECKER Medicine LAB BLOOD ORDERABLES Final Resul t [facility] One [facility] [place] [address] * (ABNORMAL) Comprehensive metabolic panel, without glucose (Outreach) (02/10/2024 6:41 AM POLICY CHECKER) Sodium 139 135 - 145 mmol/L [facility] Comment:Testing performed by : [facility], 1 [facility], [address] Potassium, pl 3.7 3.3 - 4.9 mmol/L [facility] Comment:Testing performed by : [facility], 1 [facility], [address] Chloride 110 97 - 110 mmol/L [facility] Comment:Testing performed by : [facility], 1 [facility], [address] CO2 22 22 - 32 mmol/L [facility] Comment:Testing performed by : [facility], 1 [facility], [address] Anion gap 7 2 - 15 mmol/L [facility] Comment:Testing performed by : [facility], 1 [facility], [address] BUN 10 6 - 25 mg/dL [facility] Comment:Testing performed by : [facility], 1 [facility], [address] Creatinine 1.31(H) 0.60 - 1.10 mg/dL [facility] Comment:Testing performed by : [facility], 1 [facility], [address] Calcium 9.6 8.5 - 10.3 mg/dL [facility] Comment:Testing performed by : [facility], 1 [facility], [address] Protein, pl 7.2 6.5 - 8.5 g/dL [facility] Comment:Testing performed by : [facility], 1 [facility], [address] Albumin 2.3(L) 3.5 - 5.0 g/dL [facility] Comment:Testing performed by : [facility], 1 [facility], [address] Bilirubin, total 0.3 0.1 - 1.2 mg/dL [facility] Comment:Testing performed by : [facility], [address] [place]., [address] Alk phos 127 40 - 130 Units/L [facility] Comment:Testing performed by : [facility], [address] [place]., [address] AST 24 10 - 45 Units/L [facility] Comment:Testing performed by : [facility], 1 [facility], [address] ALT 22 7 - 45 Units/L [facility] Comment:Testing performed by : [facility], 1 [facility], [address] Blood 02/10/2024 6:41 AM POLICY CHECKER 02/10/2024 12:21 PM POLICY CHECKER [facility] LAB BLOOD ORDERABLES Final Resul t [facility] One [facility] Department [place] [address] * (ABNORMAL) CBC with auto differential (02/10/2024 6:41 AM POLICY CHECKER) WBC 4.5 3.8 - 9.9 K/cumm [facility] Comment:Testing performed by : [facility], [address] [place]., [address] Hgb 7.6(L) 11.9 - 15.5 g/dL [facility] Comment:Testing performed by : [facility], [address] [place]., [address] Hct 24.9(L) 35.6 - 45.5 % [facility] Comment:Testing performed by : [facility], [address] [place]., [address] Plt 180 150 - 400 K/cumm [facility] Comment:Testing performed by : [facility], 1 [facility], [address] MPV 10.7 9.1 - 12.3 fL [facility] Comment:Testing performed by : [facility], 1 [facility], [address] RBC 2.89(L) 3.90 - 5.20 M/cumm [facility] Comment:Testing performed by : [facility], 1 [facility], [address] MCV 86.2 81.3 - 96.4 fL [facility] Comment:Testing performed by : [facility], 1 [facility], [address] MCH 26.3(L) 27.1 - 33.3 pg [facility] Comment:Testing performed by : [facility], 1 [facility], [address] MCHC 30.5(L) 32.3 - 35.7 g/dL [facility] Comment:Testing performed by : [facility], 1 [facility], [address] RDW CV 18.6(H) 11.1 - 14.9 % [facility] Comment:Testing performed by : [facility], 1 [facility], [address] RDW SD 58.3(H) 35.7 - 48.1 fL [facility] Comment:Testing performed by : [facility], 1 [facility], [address] NRBC abs 0.00 0.00 - 0.01 K/cumm [facility] Comment:Testing performed by : [facility], 1 [facility], [address] Blood 02/10/2024 6:41 AM POLICY CHECKER 02/10/2024 12:22 PM POLICY CHECKER Medicine LAB BLOOD ORDERABLES Final Resul t [facility] Department [place] [address] * CS GLUCOSE (02/07/2024 5:00 AM POLICY CHECKER) Pathologist [facility] Glucose 102 70 - 199 mg/dL [facility] Comment: Interpretive Data Fasting glucose >/= 126 mg/dl is diagnostic for diabetes. Fasting is defined as no caloric intake for at least 8 hours. Fasting glucose between 100 mg/dl to 125 mg/dl is diagnostic of prediabetes. In a patient with classic symptoms of hyperglycemia or hyperglycemic crisis, a random glucose >/= 200 mg/dl is diagnostic for diabetes. In the absence of unequivocal hyperglycemia, results should be confirmed by repeat testing. The classification and Diagnosis of Diabetes Diabetes Care 2021; 46: S19-S40. Current interpretive data was last revised 2022. Testing performed by: [facility], [address] [place] [address], [place]., [address] Blood 02/07/2024 5:00 AM POLICY CHECKER 02/07/2024 7:27 AM POLICY CHECKER Nettie Reyes NP LAB BLOOD ORDERABLES Final Result Performing Organization Address [facility] Co de Phone Number [facility] Department [place] [address] * (ABNORMAL) eGFR (02/07/2024 5:00 AM POLICY CHECKER) [facility] eGFR 49(L) >=60 mL/min/1. 73 m2 [facility] Comment: Interpretive Data Reference Interval Normal >/= 90 mL/min/1.73m2 Mildly decreased* 60 - 89 mL/min/1.73m2 Mildly to moderately decreased 45 - 59 mL/min/1.73m2 Moderately to severely decreased 30 - 44 mL/min/1.73m2 Severely decreased 15 - 29 mL/min/1.73m2 Kidney Failure < 15 mL/min/1.73m2 *Relative to young adult level Estimated glomerular filtration rate is determined by the 2020 CKD-EPI equation recommended by the National Kidney Foundation (A Unifying Approach to GFR Estimation: Recommendations of the NKF-ASK Task Force on Reassessing the Inclusion of Race in Diagnosing Kidney Disease, JASN 2020). The CKD-EPI equation should not be used for patients with unstable renal function and has not been validated in children and those over 70. Current interpretive data was last reviewed 2020. Testing performed by: [facility], [address] [place]., [address] Blood 02/07/2024 5:00 AM POLICY CHECKER 02/07/2024 7:27 AM POLICY CHECKER us Nettie Reyes NP LAB BLOOD ORDERABLES Final Result [facility] One [facility] Department [place] [address] * Differential, auto (02/07/2024 5:00 AM POLICY CHECKER) Neutrophil abs 4.3 1.5 - 6.5 K/cumm [facility] Comment:Testing performed by : [facility], [address] [place]., [address] Imm gran abs 0.1 0.0 - 0.1 K/cumm [facility] Comment:Testing performed by : [facility], [address] [place] [address]., [address] Lymphocyte abs 0.9 0.8 - 3.3 K/cumm [facility] Comment:Testing performed by : [facility], [address] [place]., [address] Monocyte abs 0.7 0.2 - 0.8 K/cumm [facility] Comment:Testing performed by : [facility], [address] [place]., [address] Eosinophil abs 0.1 0.0 - 0.5 K/cumm [facility] Comment:Testing performed by : [facility], [address] [place]., [address] Basophil abs 0.0 0.0 - 0.1 K/cumm [facility] Comment:Testing performed by : [facility], [address] [place]., [address] Neutrophil pct 70.3 % [facility] Comment: Interpretive Data Percent cell count reference ranges are not reported, since discordance with absolute values may lead to misinterpretation of CBC data. Current Interpretive Data was last revised on 2017. Testing performed by: [facility], [address] [place]., [address] Imm gran pct 1.0 % [facility] Comment: Interpretive Data Percent cell count reference ranges are not reported, since discordance with absolute values may lead to misinterpretation of CBC data. Current Interpretive Data was last revised on 2017. Testing performed by: [facility], [address] [place] [address] Lymphocyte pct 15.0 % [facility] Comment: Interpretive Data Percent cell count reference ranges are not reported, since discordance with absolute values may lead to misinterpretation of CBC data. Current Interpretive Data was last revised on 2017. Testing performed by: [facility], [address] [place]., [address] Monocyte pct 11.3 % [facility] Comment: Interpretive Data Percent cell count reference ranges are not reported, since discordance with absolute values may lead to misinterpretation of CBC data. Current Interpretive Data was last revised on 2017. Testing performed by: [facility], [address] [place]., [address] Eosinophil pct 2.1 % [facility] Comment: Interpretive Data Percent cell count reference ranges are not reported, since discordance with absolute values may lead to misinterpretation of CBC data. Current Interpretive Data was last revised on 2017. Testing performed by: [facility], [address] [place] [address] Basophil pct 0.3 % [facility] Comment: Interpretive Data Percent cell count reference ranges are not reported, since discordance with absolute values may lead to misinterpretation of CBC data. Current Interpretive Data was last revised on 2017. Testing performed by: [facility], [address] [place]., [address] Blood 02/07/2024 5:00 AM POLICY CHECKER 02/07/2024 7:27 AM POLICY CHECKER Nettie Reyes BACK TENDER [employer]DRINIER LAB BLOOD ORDERABLES Final Result [facility] One [facility] Department [place] [address] * (ABNORMAL) Comprehensive metabolic panel, without glucose (Outreach) (02/07/2024 5:00 AM POLICY CHECKER) Sodium 140 135 - 145 mmol/L [facility] Comment:Testing performed by : [facility], [address] [place] [address], [address] Potassium, pl 3.9 3.3 - 4.9 mmol/L [facility] Comment:Testing performed by : [facility], 1 [facility], [address] Chloride 112(H) 97 - 110 mmol/L [facility] Comment:Testing performed by : [facility], [address] [place]., [address] CO2 20(L) 22 - 32 mmol/L [facility] Comment:Testing performed by : [facility], 1 [facility], [address] Anion gap 8 2 - 15 mmol/L [facility] Comment:Testing performed by : [facility], 1 [facility], [address] BUN 10 6 - 25 mg/dL [facility] Comment:Testing performed by : [facility], 1 [facility], [address] Creatinine 1.12(H) 0.60 - 1.10 mg/dL [facility] Comment:Testing performed by : [facility], [address] [place]., [address] Calcium 9.9 8.5 - 10.3 mg/dL [facility] Comment:Testing performed by : [facility], 1 [facility], [address] Protein, pl 7.2 6.5 - 8.5 g/dL [facility] Comment:Testing performed by : [facility], [address] [place]., [address] Albumin 2.4(L) 3.5 - 5.0 g/dL [facility] Comment:Testing performed by : [facility], 1 [facility], [address] Bilirubin, total 0.3 0.1 - 1.2 mg/dL [facility] Comment:Testing performed by : [facility], 1 [facility], [address] Alk phos 127 40 - 130 Units/L [facility] Comment:Testing performed by : [facility], 1 [facility], [address] AST 31 10 - 45 Units/L [facility] Comment:Testing performed by : [facility], 1 [facility], [address] ALT 28 7 - 45 Units/L [facility] Comment:Testing performed by : [facility], [address] [place] [address], [address] Blood 02/07/2024 5:00 AM POLICY CHECKER 02/07/2024 7:27 AM POLICY CHECKER Nettie Reyes NP LAB BLOOD ORDERABLES Final Result [facility] One [facility] Department [place] [address] * (ABNORMAL) CBC with auto differential (02/07/2024 5:00 AM POLICY CHECKER) WBC 6.1 3.8 - 9.9 K/cumm [facility] Comment:Testing performed by : [facility], 1 [facility], [address] Hgb 7.8(L) 11.9 - 15.5 g/dL [facility] Comment:Testing performed by : [facility], 1 [facility], [address] Hct 25.2(L) 35.6 - 45.5 % [facility] Comment:Testing performed by : [facility], 1 [facility], [address] Plt 191 150 - 400 K/cumm [facility] Comment:Testing performed by : [facility], 1 [facility], [address] MPV 9.6 9.1 - 12.3 fL [facility] Comment:Testing performed by : [facility], 1 [facility], [address] RBC 2.99(L) 3.90 - 5.20 M/cumm [facility] Comment:Testing performed by : [facility], 1 [facility], [address] MCV 84.3 81.3 - 96.4 fL [facility] Comment:Testing performed by : [facility], 1 [facility], [address] MCH 26.1(L) 27.1 - 33.3 pg [facility] Comment:Testing performed by : [facility], 1 [facility], [address] MCHC 31.0(L) 32.3 - 35.7 g/dL [facility] Comment:Testing performed by : [facility], 1 [facility], [address] RDW CV 18.7(H) 11.1 - 14.9 % [facility] Comment:Testing performed by : [facility], [address] [place]., [address] RDW SD 56.6(H) 35.7 - 48.1 fL [facility] Comment:Testing performed by : [facility], [address] [place]., [address] NRBC abs 0.00 0.00 - 0.01 K/cumm [facility] Comment:Testing performed by : [facility], 1 [facility], [address] Blood 02/07/2024 5:00 AM POLICY CHECKER 02/07/2024 7:27 AM POLICY CHECKER Nettie Reyes NP LAB BLOOD ORDERABLES Final Result [facility] One [facility] Department [place] [address] * (ABNORMAL) CBC without differential (02/07/2024 5:00 AM POLICY CHECKER) WBC 6.1 3.8 - 9.9 K/cumm [facility] Comment:Testing performed by : [facility], 1 [facility], [address] Hgb 7.8(L) 11.9 - 15.5 g/dL [facility] Comment:Testing performed by : [facility], [address] [place] [address], [address] Hct 25.2(L) 35.6 - 45.5 % [facility] Comment:Testing performed by : [facility], 1 [facility], [address] Plt 191 150 - 400 K/cumm [facility] Comment:Testing performed by : [facility], [address] [place] [address], [address] MPV 9.6 9.1 - 12.3 fL [facility] Comment:Testing performed by : [facility], 1 [facility], [address] RBC 2.99(L) 3.90 - 5.20 M/cumm [facility] Comment:Testing performed by : [facility], 1 [facility], [address] MCV 84.3 81.3 - 96.4 fL [facility] Comment:Testing performed by : [facility], 1 [facility], [address] MCH 26.1(L) 27.1 - 33.3 pg [facility] Comment:Testing performed by : [facility], 1 [facility], [address] MCHC 31.0(L) 32.3 - 35.7 g/dL [facility] Comment:Testing performed by : [facility], 1 [facility], [address] RDW CV 18.7(H) 11.1 - 14.9 % [facility] Comment:Testing performed by : [facility], 1 [facility], [address] RDW SD 56.6(H) 35.7 - 48.1 fL [facility] Comment:Testing performed by : [facility], 1 [facility], [address] NRBC abs 0.00 0.00 - 0.01 K/cumm [facility] Comment:Testing performed by : [facility], [address] [place] [address], [address] Blood 02/07/2024 5:00 AM POLICY CHECKER 02/07/2024 7:27 AM POLICY CHECKER Nettie Reyes NP LAB BLOOD ORDERABLES Final Result [facility] One [facility] [place] [address] from Last 3 Months Additional Health Concerns Active Problems Noted Date Diagnosed Date Colorectal Pre-Surgical Plan 11/24/2023 Infection Onset Date Last 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 MEDICARE [facility] Address: [address] [address] [facility] Advance Directives For more information, please contact: [phone] * Full Code (Latest Code Status on File) Date Activated Date Inactivated Comments 03/21/2024 11:47 AM 03/22/2024 5:06 AM * Full Code Date Activated Date Inactivated Comments 02/23/2024 6:34 PM 03/07/2024 9:15 PM * Full Code Date Activated Date Inactivated Comments 02/11/2024 10:06 AM 02/12/2024 4:57 AM * LIMITED - No CPR Date Activated Date Inactivated Comments 01/15/2024 10:17 AM 02/01/2024 5:04 PM Question Answer Comments Discussed with the following attending physician : Dr. Huffman * Full Code Date Activated Date Inactivated Comments 01/06/2024 10:10 PM 01/15/2024 10:17 AM Care Teams Client Evaluator Relationship Specialty Start Date End Date Leon Leslie MD PCP - General Family Practice 12/23/22 Elvie Drake MD Consulting Physician Medical Oncology 11/12/23 Migel Torres MD [phone] [place] [address] Surgeon Colon and Rectal Surgery 11/23/23
--- OUTSIDE RECORDS SUMMARY | 2024-05-06 21:21 | XMS_ITS | Encounter Summary ---
Author Organization [facility] Address [address] [place] [address] Phone Care Team Providers Care Sewer Cleaner Name Role Phone aGmal Morales Primary Care Provider [phone] Lauren Dean RN Unavailable [phone] Jazmín Barr MD Primary Care Provider [phone] Leon Leslie MD Primary Care Provider [phone] Manuel Silveira MD PhD Unavailable [phone] Elvie Drake MD Unavailable [phone] Migel Torres MD Unavailable [phone] Encounter Details Date Type Department Care Team (Late st Contact Info) Description 01/20/2018 Telephone [facility] ([facility]) - [facility] [address] [facility] Advanced Medicine [address]th [place] [address] [place] [address] Linnette Schreiber Social History Tobacco Use Types Packs/Day Years Used Date Smoking Tobacco: Former Cigarettes 1 54.2 1 964 - 05/2017 Smokeless Tobacco: Never Alcohol Use Standard Drinks/Week Comments No 0 (1 standard drink = 0.6 oz pur e alcohol) Comments No Sex and Gender Information Value Date Recorded Sex Assigned at Not on file Legal Sex Female 5:35 AM MANAGER [employer]GR[employer] Gender Identity Not on file Sexual Orientation Not on file documented as of this encounter Plan of Treatment Not on file documented as of this encounter Visit Diagnoses Not on filedocumented in this encounter Additional Health Concerns Infection Onset Date Last Indicated Resolved Time COVID: Suspected 03/18/2020 03/18/2020 03/18/2020 3:37 PM MANAGER [employer] Respiratory Infection (MICHAEL), contact + droplet Comment:Automatically added due to negative COVID-19 result. 03/18/2020 03/18/2020 04/01/2020 3:0 6 AM MANAGER [employer]TEGRITY COVID: Suspected 04/06/2021 04/06/2021 04/06/2021 5:44 PM MANAGER INTEGRITY C. difficile Comment:04/19/2023 IP Review: per current RN, no diarrhea in the past 48 hours, OK to come off C.dif precautions. Yelena Doyle RN 05/02/2021 05/02/20212023 9:09 AM MANAGER INTEGRITY COVID: Suspected 06/05/2021 06/05/2021 06/06/2021 3:05 AM CDT COVID: Suspected 04/17/2023 04/17/2023 04/17/2023 8:31 PM MANAGER INTEGRITY C. difficile suspected 04/21/2023 04/21/2023 5:33 AM MANAGER INTEGRITY COVID19 04/22/2023 04/22/2023 05/02/2023 3:05 AM CDT COVID: Recovered Comment:Added based on recent COVID infection. 05/02/2023 05/03/2023 07/31/2023 3:05 AM C DT COVID: Suspected 01/13/2024 01/13/2024 01/13/2024 10:26 AM MANAGER INTEGRITY Ring Surveillance Comment:Ring Surveillance - [id number]. Final swab negative 01/17/2024 01/17/2024 02/06/2024 11:47 AM MANAGER INTEGRITY MDR gram neg/ESBL 01/19/2024 02/25/2024 C. difficile suspected 01/26/2024 01/26/202401/25 7:18 PM MANAGER INTEGRITY C. difficile suspected 02/28/2024 03/02/202403/02 2:35 PM MANAGER INTEGRITY C. difficile suspected 03/20/2024 03/20/202403/20 10:38 PM MANAGER INTEGRITY C. difficile suspected 03/30/2024 03/30/202403/31 11:40 AM MANAGER INTEGRITY documented as of this encounter Care Teams Sewer Cleaner Relationship Specialty Start Date End Date Gamal Morales PCP - General Internal Medicine 07/28/17 06/15/22 Jazmín Barr MD [address] [place] [address] PCP - General Internal Medicine 06/16/22 12/22/22 Leon Leslie MD [address] [place] [address] PCP - General Family Practice 12/23/22 Lauren Dean, RN [address] [facility] [address] [place] [address] [facility] Outpatient Fountain Dispenser 03/20/19 04/19/19 Manuel Silveira MD PhD [address] [place] [address] Medical Oncologist/Dock Hand Medical Oncology 11/03/23 11/11/23 Elvie Drake MD [address] [place] [address] Consulting Physician Medical Oncology 11/12/23 Migel Torres MD [phone] [place] [address] Surgeon Colon and Rectal Surgery 11/23/23 documented as of this encounter
--- OUTSIDE RECORDS SUMMARY | 2024-05-06 21:21 | XMS_ITS | Continuity of Care Document ---
Author Organization [facility] Address [address] [place] [address] Phone Care Team Providers Care Rotary Shear Worker Helper Name Role Phone Cain Pacheco MD Unavailable Unavailable Allergies, Adverse Reactions, Alerts Substance Reaction Status Criticality No Known Allergies Active No Inform ation Medications Medication Instructions Dosage Effective Dates (start - stop) Status Comments [place] 7.5 mg-325 mg tablet take 1 tablet by oral route 3 times every day as needed for pain 1 tablet - Active avoid driving or operate machines Vitamin D2 50,000 unit capsule take 1 capsule ([id number]) by oral route every week - Active Norvasc 10 mg tablet take 1 tablet (10MG) by oral route every day 10 MG - Active Fosamax 70 mg tablet take 1 tablet (70MG) by oral route every week in the morning, at least 30 min before first food, beverage, or medication of day 70 MG - Active potassium chloride ER 20 mEq tablet,extended release(part/cryst ) take 2 Tablet (40MEQ) by oral route every day with food 40 MEQ - Active Procedures Procedure Date OFFICE/OUTPATIENT VISIT, EST OFFICE/OUTPATIENT VISIT, EST OFFICE/OUTPATIENT VISIT, EST OFFICE/OUTPATIENT VISIT, EST OFFICE/OUTPATIENT VISIT, EST OFFICE/OUTPATIENT VISIT, EST OFFICE/OUTPATIENT VISIT, EST OFFICE/OUTPATIENT VISIT, EST OFFICE/OUTPATIENT VISIT, EST OFFICE/OUTPATIENT VISIT, EST OFFICE/OUTPATIENT VISIT, EST OFFICE/OUTPATIENT VISIT, [facility] Advance Directives Directive Yes / No Effective Date File Name No Information Encounters Encounter Description Practice Location Reason(s) For Visit Diagnoses Date Provider Providers Copied on Encounter [facility], [address], [place], [place], [id number], [phone] [facility] No Information 5 Junior Vickers [address], [place], [place], [address] , [place]. tel:[phone] [facility], [address], [place], [place], [address], [place] tel:[phone] [facility] No Information 5 uJnior Vickers [address], [place], [place], [address] , [place]. tel:[phone] OFFICE/OUTPA TIENT VISIT, [facility], [address], [place], [place], [address], [place] [phone] [facility] hip pain (chief complaint) HTN (chief complaint) osteoporos is (chief complaint) anxiety (chief complaint) Dietary surveillance and counselingNeoplasm of unspecified nature of breastOsteoarthriti s, GeneralizedOsteopor osisHypertension, Unspecified 5 Junior Vickers [address], [place], [place], [address] , [place]. [phone] Referring Provider: Berna Monter[address], [place], [place], [address]. tel:[phone] OFFICE/OUTPA TIENT VISIT, [facility], [address], [place], [place], [address], [place] tel:[phone] [facility] Hip pain (chief complaint) osteoporos is (chief complaint) breast CA (chief complaint) anemia (chief complaint) HTN (chief complaint) anxiety (chief complaint) Dietary surveillance and counselingNeoplasm of unspecified nature of breastHypertension, UnspecifiedOsteopor osisGeneralized anxiety disorder 4 Pacheco Cain. [address], [place], [place], [address] , [place]. [phone] Referring Provider: Berna Montero [address], [place], [place], [address]. tel:[phone] OFFICE/OUTPA TIENT VISIT, [facility], [address], [place], [place], [address], [place] tel:[phone] [facility] Anemia (chief complaint) osteoporos is (chief complaint) chornic pain (chief complaint) Anxiety (chief complaint) Dietary surveillance and counselingNeoplasm of unspecified nature of breastOsteoporosisM alignant neoplasm of descending colonOsteoarthritis , Generalized 0 4 Junior Barlow. [address], [place], [place], [address] , [place]. [phone] Referring Provider: Berna Montero [address], [place], [place], [address]. tel:[phone] OFFICE/OUTPA TIENT VISIT, [facility], [address], [place], [place], [address], [place] tel:[phone] [facility] hip pain (chief complaint) osteoporos is (chief complaint) breast CA (chief complaint) HTN (chief complaint) Dietary surveillance and counselingOsteoporo sisNeoplasm of unspecified nature of breastPain in joint involving lower legAnemia 4 Junior Barlow. [address], [place], [place], [address] , [place]. tel:[phone] Referring Provider: Berna Montero [address], [place], [place], [address]. tel:[phone] OFFICE/OUTPA TIENT VISIT, [facility], [address], [place], [place], [address], [place] tel:[phone] [facility] HTN (chief complaint) osteoporos is (chief complaint) breast CA (chief complaint) dementia (chief complaint) Dietary surveillance and counselingOsteoporo sisNeoplasm of unspecified nature of breastOsteoarthriti s, GeneralizedDementia in conditions classified elsewhere without behavioral disturbance 4 Junior Barlow. [address], [place], [place], [address] , [place]. tel:[phone] Referring Provider: Berna Montero [address], [place], [place], [address]. tel:[phone] OFFICE/OUTPA TIENT VISIT, [facility], [address], [place], [place], [address], [place] tel:[phone] [facility] chronic pain (chief complaint) Dietary surveillance and counselingPain in joint involving lower leg 3 Junior Barlow. [address], [place], [place], [address] , [place]. [phone] Referring Provider: Berna Montero [address], [place], [place], [address]. tel:[phone] OFFICE/OUTPA TIENT VISIT, [facility], [address], [place], [address], [place] tel:[phone] [facility] anemia (chief complaint) osteoporos is (chief complaint) glucose (chief complaint) arthritis (chief complaint) Dietary surveillance and counselingOsteoporo sisOsteoarthritis, GeneralizedAnemiaMe tabolic Syndrome 3 Junior Vickers [address], [place], [place], [address] , [place]. [phone] Referring Provider: Berna Montero [address], [place], [place], [address]. tel:[phone] OFFICE/OUTPA TIENT VISIT, [facility], [address], [place], [place], [address], [place] tel:[phone] [facility] HTN (chief complaint) HIP pain (chief complaint) hypokalemi a (chief complaint) Dietary surveillance and counselingOsteoporo sisHypertension, UnspecifiedPain in joint involving lower legHypokalemia 3 Junior Barlow. [address], [place], [place], [address] , [place]. tel:[phone] Referring Provider: Cain Pacheco, [address], [place], [place], [address]. tel:[phone] [facility], [address], [place], [address], [place] [phone] [facility] Hypokalemia 3 Junior Barlow. [address], [place], [place], [address] , [place]. [phone] Referring Provider: Cain Pacheco, [address], [place], [place], [address]. tel:[phone] OFFICE/OUTPA TIENT VISIT, [facility], [address], [place], [address], [place] [phone] [facility] knee pain (chief complaint) Dietary surveillance and counselingPain in joint involving lower leg 3 Junior Barlow. [address], [place], [address] , [place]. [phone] Referring Provider: Berna Montero [address], [place], [place], [address]. tel:[phone] OFFICE/OUTPA TIENT VISIT, [facility], [address], [place], [place], [address], [place] [phone] [facility] HTN (chief complaint) osteoporos is (chief complaint) Dietary surveillance and counselingOsteoporo sisNeoplasm of unspecified nature of breastHypertension, Unspecified 3 Junior Barlow. [address], [place], [place], [address] , [place]. [phone] Referring Provider: Berna Montero [address], [place], [place], [address]. tel:[phone] OFFICE/OUTPA TIENT VISIT, [facility], [address], [place], [place], [address], [place] tel:[phone] [facility] arthritis (chief complaint) HTN (chief complaint) osteoporos is (chief complaint) Dietary surveillance and counselingMalignant neoplasm of lower-outer quadrant of female breastHypertension, UnspecifiedOsteopor osisMalignant neoplasm of descending colon 3 Junior Barlow. [address], [place], [place], [address] , [place]. tel:[phone] Referring Provider: Berna Montero [address], [place], [place], [address]. tel:[phone] OFFICE/OUTPA TIENT VISIT, [facility], [address], [place], [place], [address], [place] tel:[phone] [facility] chronic pain (chief complaint) Cancer (chief complaint) osteoporos is (chief complaint) HTN (chief complaint) Dietary surveillance and counselingHypertens ion, UnspecifiedNeoplasm of unspecified nature of breastOsteoporosis 3 Junior Barlow. [address], [place], [place], [address] , [place]. tel:[phone] Referring Provider: Berna Montero [facility] [address], [place], [place], [address]. tel:[phone] Family History Family Member Type Diagnosis Age At Onset Mother Problem (finding) Cancer, breast Father Problem (finding) Unknown Disease Brother Problem (finding) Hypertension Payers Payer name Insurance type Covered democrat ID Authoriza tion(s) No Information Social History Type Description Quantity Date Captured Comments Sex Female Smoking Status No Information Chief Complaint And Reason For Visit No Information Plan Of Treatment Date Type Action Status Goal Colonoscopy. Due on 013 due Goal Mammogram. Due on 3 due Goal Tobacco cessation counseling completed Goal Tobacco cessation counseling completed Goal Tobacco cessation counseling completed Goal Tobacco cessation counseling completed Goal Tobacco cessation counseling completed Goal Tobacco cessation counseling completed Goal Tobacco cessation counseling completed Goal Tobacco cessation counseling completed Goal Tobacco cessation counseling completed Goal Tobacco cessation counseling completed Goal Tobacco cessation counseling completed Goal Tobacco cessation counseling completed Referral Ordered: Referral: Gastroentergy. ordered Referral Ordered: Referral: Ortho Surg. ordered Referral Ordered: HIP XRAY AP/LAT Bilateral ordered Referral Ordered: DXA BONE DENSITY, AXIAL ordered History Of Present Illness Encounter Date Complaint History Of Prese nt Illness No Information Instructions Date Instruction Additional Infor mation Decrease caloric intake Related to Dietary surveillance counseling Physical activity counseling Rel ated to Dietary surveillance counseling Decrease caloric intake Related to Dietary surveillance counseling Dietary counseling Related to Di etary surveillance counseling Decrease caloric intake Related to Dietary surveillance counseling Dietary counseling Related to Di etary surveillance counseling Dietary counseling Related to Di etary surveillance counseling Decrease caloric intake Related to Dietary surveillance counseling Dietary counseling Related to Di etary surveillance counseling Decrease caloric intake Related to Dietary surveillance counseling Dietary counseling Related to Di etary surveillance counseling Decrease caloric intake Related to Dietary surveillance counseling Decrease caloric intake Related to Dietary surveillance counseling Dietary counseling Related to Di etary surveillance counseling Dietary counseling Related to Di etary surveillance counseling Decrease caloric intake Related to Dietary surveillance counseling Dietary counseling Related to Di etary surveillance counseling Decrease caloric intake Related to Dietary surveillance counseling Dietary counseling Related to Di etary surveillance counseling Decrease caloric intake Related to Dietary surveillance counseling Decrease caloric intake Related to Dietary surveillance counseling Dietary counseling Related to Di etary surveillance counseling Dietary counseling Related to Di etary surveillance counseling Decrease caloric intake Related to Dietary surveillance counseling Assessments Type Assessment Date No Information
--- OUTSIDE RECORDS SUMMARY | 2024-05-06 21:21 | XMS_ITS | Clinical Summary ---
Author Organization [facility] Address [address] [place] [address] Care Team Providers Care Drywall Taper Helper Name Role Phone Leon Leslie MD Primary Care Provider [phone] Allergies Active Allergy Reactions Criticality Noted Date Comments Lisinopril Angioedema 08/14/2022 Medications ferrous sulfate EC 325 (65 Fe) MG tablet Take 1 tablet by mouth 2 (two) times daily. Active atorvastatin (LIPITOR) 40 MG tablet Take 1 tablet (40 mg total) by mouth daily. Active losartan (COZAAR) 50 MG tablet Take 1 tablet (50 mg total) by mouth daily. Active dicyclomine (BENTYL) 20 MG tablet Take 1 tablet (20 mg total) by mouth every 6 (six) hours as needed (abdominal pain). Active donepezil (ARICEPT) 10 MG Tab Take 1 tablet (10 mg total) by mouth daily. Active fluticasone propionate (FLONASE) 50 MCG/ACT nasal spray 1 spray by Each Nostril route 2 (two) times daily as needed for Allergies. Active memantine (NAMENDA) 5 MG tablet Take 1 tablet (5 mg total) by mouth 2 (two) times daily. Active amLODIPine (NORVASC) 10 MG tablet Take 1 tablet (10 mg total) by mouth daily. Active HYDROcodone-giovany taminophen (NORCO) 10-325 MG tablet Take 1 tablet by mouth every 6 (six) hours as needed for Pain. Active busPIRone (BUSPAR) 15 MG tablet Take 1 tablet (15 mg total) by mouth 2 (two) times daily. Active aspirin EC (ECOTRIN) 81 MG tablet Take 1 tablet (81 mg total) by mouth daily. 30 tablet 08/17/2022 Active metoprolol tartrate (LOPRESSOR) 25 MG tablet Take 1 tablet (25 mg total) by mouth 2 (two) times daily. Active pantoprazole EC (PROTONIX) 40 MG tablet Take 1 tablet (40 mg total) by mouth daily. 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 IBS (irritable bowel syndrome) 10/19/2018 Overview (08/15/2022): Last Assessment & Plan: - Continue home dicyclomine Gastroesophageal reflux disease 10/18/2018 Overview (08/15/2022): Last Assessment & Plan: - Hold home protonix 40mg while on Famotidine Last Assessment & Plan: - Hold home protonix 40mg while on Famotidine Generalized anxiety disorder 10/18/2018 Overview (08/15/2022): Last Assessment & Plan: - Continue home buspar Tracheostomy present ([facility]) 9 Overview (08/15/2022): Last Assessment & Plan: Tracheostomy change without difficulty today. Continue routine trach changes. Last Assessment & Plan: Tracheostomy change without difficulty today. Continue routine trach changes. Aspiration pneumonitis ([facility]) 019 Overview (08/15/2022): Last Assessment & Plan: - atypical chest pain/pleuritic most likely due to coughing - given atypical nature, negative trop, no significant EKG changes, no further workup necessary - tylenol and cheratussin prn - symptoms improving - okay to discharge today Last Assessment & Plan: - atypical chest pain/pleuritic most likely due to coughing - given atypical nature, negative trop, no significant EKG changes, no further workup necessary - tylenol and cheratussin prn - symptoms improving - okay to discharge today Renal cell carcinoma of left kidney (CMS/HCC HHS /HCC) 12/09/2017 Overview (08/15/2022): Last Assessment & Plan: - lesion seen on CT 11/2017 - ensure outpatient follow up with urology 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 Tulio #5, TC. ENT will follow up with patient as o/p. Continue Trach care. Nonverbal due to stenosis. Planned rescheduling of dilation with ENT underway. Coronary atherosclerosis 08/30/2017 Overview (08/15/2022): Last Assessment & Plan: S/p WY in 04/2017 with subsequent V Fib arrest requiring intubation. - continue on home aspirin, statin - low sodium diet Last Assessment & Plan: S/p WY in 04/2017 with subsequent V Fib arrest requiring intubation. - continue on home aspirin, statin - low sodium diet Essential hypertension 08/30/2017 Overview (08/15/2022): Last Assessment & Plan: Uncertain baseline. - continue amlodipine, metoprolol - holding losartan Last Assessment & Plan: Uncertain baseline. - continue amlodipine, metoprolol - holding losartan History of ST elevation myocardial infarction (S MAGDY) 08/30/2017 Overview (08/15/2022): Complicated by VF arrest. 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 - Continue home donepezil Last Assessment & Plan: Patient reportedly able to do all iADLs at home with high functional baseline. - Continue home donepezil Anemia 11/11/2012 Osteoporosis 02/25/2012 Malignant neoplasm of female breast ([facility]) 12/31/2010 Overview (08/15/2022): Description: Malignant Female Breast Neoplasm, NOS Description: Malignant Female Breast Neoplasm, NOS Social History Tobacco Use Types Packs/Day Years Used Date Smoking Tobacco: Former Smokeless Tobacco: Never Alcohol Use Standard Drinks/Week Comments No 0 (1 standard drink = 0.6 oz pur e alcohol) Humiliation, Afraid, Rape, and Kick questionnair e Answer Date Recorded Within the last year, have y ou been afraid of your partner or ex-partner? No 12/16/2022 Within the last year, have y ou been humiliated or emotionally abused in other ways by your partner or ex-partner? No Within the last year, have y ou been kicked, hit, slapped, or otherwise physically hurt by your partner or ex-partner? No 12/16/2022 Within the last year, have y ou been raped or forced to have any kind of sexual activity by your partner or ex-partner? No 12/16/2022 Overall Financial Resource Strain (CARDIA) Answe r Date Recorded How hard is it for you to pa y for the very basics like food, housing, medical care, and heating? Not hard at all 12/16/2022 Hunger Vital Sign Answer Date Recorded Within the past 12 months, y ou worried that your food would run out before you got the money to buy more. Never true 12/17/19 23 Within the past 12 months, t he food you bought just didn't last and you didn't have money to get more. Never true 12/16/2022 PRAPARE - Transportation Answer Date Re corded In the past 12 months, has l ack of transportation kept you from medical appointments or from getting medications? No 11/23 In the past 12 months, has l ack of transportation kept you from meetings, work, or from getting things needed for daily living? No 12/16/2022 Housing Stability Vital Sign Answer Herman e Recorded In the last 12 months, was t here a time when you were not able to pay the mortgage or rent on time? No 12/16/2022 In the last 12 months, how many places have you lived? 1 12/16/2022 In the last 12 months, was t here a time when you did not have a steady place to sleep or slept in a mcfp (including now)? No 12/16/2022 Comments No Sex and Gender Information Value Date Recorded Sex Assigned at Not on file Legal Sex Female 5:49 PM CDT Gender Identity Not on file Sexual Orientation Not on file Last Filed Vital Signs Vital Sign Reading Time Taken Comments Blood Pressure 119/42 12/16/2022 11:19 AM CDT Pulse 80 12/16/2022 11:19 AM CDT Temperature 36.7 C (98.1 F) 12/16/2022 11:19 AM CDT Respiratory Rate 19 12/16/2022 7:24 AM CDT Oxygen Saturation 99% 12/16/2022 11:19 AM CDT Inhaled Oxygen Concentration - - Weight 55.5 kg (122 lb 4.8 oz) 12/16/2022 3:00 A M CDT Height 149.9 cm (4' 11 ) 12/14/2022 3:33 PM CDT Body Mass Index 24.7 12/14/2022 3:33 PM CDT Plan of Treatment Health Maintenance Due Date Last Done Comments ASCVD Statin 1942 DTaP, Tdap and Td Vaccines (1 - Tdap) 1961 Zoster Vaccines (1 of 2) 1992 Annual Medicare Wellness Visit 10/14/2007 Dexa Scan (General) 10/14/2007 Pneumococcal Vaccine: 65+ Years (2 of 2 - PCV) 07/07/2008 07/08/2007 RSV Immunization or 60+ Years (1 - 1-dose 75+ series) 2017 ASCVD LDL 08/17/2023 08/16/2022 COVID-19 Vaccine (2 - season) 2023 05/28/2020 Influenza Adult (#1) 2023 11/22/2020, 01/06/2019, 12/10/2017, Additional history exists Meningococcal B Vaccine Aged Out No l onger eligible based on patient's age to complete this topic Meningococcal Vaccine Aged Out No dax corey eligible based on patient's age to complete this topic RSV Immunizations Under 20 Months Aged Out No longer eligible based on patient's age to complete this topic Goals Goal Patient Goal Type Associated Problems Recent Progress Patient-Stated? Author Health - patient able to perform ADLs independently Lifestyle Davis Thao saturator Procedure Name Priority Date/Time Associated Diagnosis Comments LIPID PANEL Routine 08/16/2022 6:00 AM CDT from Last 3 Months or Most Recently Relevant to Health Maintenance Results * LIPID PANEL (08/16/2022 6:00 AM CDT) CHOLESTEROL 179 <200 MG/DL 08/16/2022 6:46 AM CDT [facility] TRIGLYCERIDES 72 <150 MG/DL 08/16/2022 6:46 AM CDT [facility] HDL 80 >40.0 MG/DL 08/16/2022 6:46 AM CDT [facility] LDL (CALCULATED) 85 <100 MG/DL 08/17/19 6:46 AM CDT [facility] NON HDL CHOLESTEROL 99 <130 MG/DL 08/16 6:46 AM CDT [facility] CHOL/HDL RATIO 2.2 0.0 - 4.5 08/16/2022 6:46 AM CDT [facility] VLDL CALCULATION 14 5 - 55 MG/DL 08/16/2022 6:46 AM CDT [facility] LIPID INTERPRETATION 08/16/2022 6:46 AM CDT [facility] Comment: [facility] REPORT RECOMMENDATIONS: ADULT CHILD LOW RISK: CHOLESTEROL <200 <170 TRIGLYCERIDE <150 --- HDL >=60 --- LDL <100 <110 BORDERLINE: CHOLESTEROL 200-239 170-199 TRIGLYCERIDE 150-199 --- HDL 40-59 --- LDL 100-159 110-129 HIGH RISK: CHOLESTEROL >=240 >=200 TRIGLYCERIDE >=200 --- HDL <40 --- LDL >=160 >=130 08/16/2022 6:00 AM CDT us Jarrett Rios MD LABORATORY Final Resul t [facility] [address] [place] [address], from Last 3 Months or Most Recently Relevant to Health Maintenance Insurance [place] Advance Directives * Full Code (Latest Code Status on File) Date Activated Date Inactivated Comments 12/14/2022 7:59 PM 12/16/2022 3:57 PM * Full Code Date Activated Date Inactivated Comments 08/15/2022 5:42 AM 08/16/2022 7:33 PM Care Teams Drywall Taper Helper Relationship Specialty Start Date End Date Leon Leslie MD [address] [place] [address] PCP - General FAMILY PRACTICE 08/15/22
--- OUTSIDE RECORDS SUMMARY | 2024-05-06 21:21 | XMS_ITS | Encounter Summary ---
Author Organization [facility] Healthcare Address [address] [place] [address] Care Team Providers Care Auditor Name Role Phone Gamal Morales Primary Care Provider [phone] Lauren Dean RN Unavailable [phone] Jazmín Barr MD Primary Care Provider [phone] Leon Leslie MD Primary Care Provider [phone] Manuel Silveira MD PhD Unavailable Elvie Drake MD Unavailable [phone] Migel Torres MD Unavailable [phone] Reason for Visit * Reason Onset Date Comments discharge summary 12/12/2017 missing discha rge summary, visible on 12/10/17. Encounter Details Date Type Department Care Team (Late st Contact Info) Description 12/12/2017 Documentation Internal Medicine Emily Rob MD [address] [place] [address] discharge summary (missing discharge summary, visible on 12/10/17.) Social History Tobacco Use Types Packs/Day Years Used Date Smoking Tobacco: Former Cigarettes 1 54.2 1 964 - 05/2017 Smokeless Tobacco: Never Alcohol Use Standard Drinks/Week Comments No 0 (1 standard drink = 0.6 oz pur e alcohol) Comments No Sex and Gender Information Value Date Recorded Sex Assigned at Not on file Legal Sex Female 5:35 AM BIOLOGICAL SCIENCE TECHNICIAN FISH Gender Identity Not on file Sexual Orientation Not on file documented as of this encounter Plan of Treatment Not on file documented as of this encounter Visit Diagnoses Not on filedocumented in this encounter Additional Health Concerns Infection Onset Date Last Indicated Resolved Time COVID: Suspected 03/18/2020 03/18/2020 03/18/2020 3:37 PM BIOLOGICAL SCIENCE TECHNICIAN FISH Respiratory Infection (MICHAEL), contact + droplet Comment:Automatically added due to negative COVID-19 result. 03/18/2020 03/18/2020 04/01/2020 3:0 6 AM BIOLOGICAL SCIENCE TECHNICIAN FISH COVID: Suspected 04/06/2021 04/06/2021 04/06/2021 5:44 PM BIOLOGICAL SCIENCE TECHNICIAN FISH C. difficile Comment:04/19/2023 IP Review: per current RN, no diarrhea in the past 48 hours, OK to come off C.dif precautions. Yelena Doyle RN 05/02/2021 05/02/20212023 9:09 AM BIOLOGICAL SCIENCE TECHNICIAN FISH COVID: Suspected 06/05/2021 06/05/2021 06/06/2021 3:05 AM CDT COVID: Suspected 04/17/2023 04/17/2023 04/17/2023 8:31 PM BIOLOGICAL SCIENCE TECHNICIAN FISH C. difficile suspected 04/21/2023 04/21/2023 5:33 AM BIOLOGICAL SCIENCE TECHNICIAN FISH COVID19 04/22/2023 04/22/2023 05/02/2023 3:05 AM CDT COVID: Recovered Comment:Added based on recent COVID infection. 05/02/2023 05/03/2023 07/31/2023 3:05 AM C DT COVID: Suspected 01/13/2024 01/13/2024 01/13/2024 10:26 AM BIOLOGICAL SCIENCE TECHNICIAN FISH Ring Surveillance Comment:Ring Surveillance - [id number]. Final swab negative 01/17/2024 01/17/2024 02/06/2024 11:47 AM BIOLOGICAL SCIENCE TECHNICIAN FISH MDR gram neg/ESBL 01/19/2024 02/25/2024 C. difficile suspected 01/26/2024 01/26/202401/25 7:18 PM BIOLOGICAL SCIENCE TECHNICIAN FISH C. difficile suspected 02/28/2024 03/02/202403/02 2:35 PM BIOLOGICAL SCIENCE TECHNICIAN FISH C. difficile suspected 03/20/2024 03/20/202403/20 10:38 PM BIOLOGICAL SCIENCE TECHNICIAN FISH C. difficile suspected 03/30/2024 03/30/202403/31 11:40 AM BIOLOGICAL SCIENCE TECHNICIAN FISH documented as of this encounter Care Teams Auditor Relationship Specialty Start Date End Date Gamal Morales DO PCP - General Internal Medicine 07/28/17 06/15/22 Jazmín Barr MD [address] [address] PCP - General Internal Medicine 06/16/22 12/22/22 Leon Leslie MD [address] [address] PCP - General Family Practice 12/23/22 Lauren Dean, RN [address] [address] [facility] Outpatient Patient Access Registrar 03/20/19 04/19/19 Manuel Silveira MD PhD [address] [place] [address] Medical Oncologist/Director Of Software Development Medical Oncology 11/03/23 11/11/23 Elvie Drake MD [address] [place] [address] Consulting Physician Medical Oncology 11/12/23 Migel Torres MD [phone] [place] [address] Surgeon Colon and Rectal Surgery 11/23/23 documented as of this encounter
--- OUTSIDE RECORDS SUMMARY | 2024-05-06 21:21 | XMS_ITS | Referral Summary ---
Author Organization [id number] Address [address] [place] [address] Care Team Providers Care Medical Data Entry Clerk Name Role Phone Leon Leslie MD Primary Care Provider [phone] Elvie Drake MD Unavailable [phone] Migel Torres MD Unavailable [phone] Encounters Date Type Department Care Team Description 04/18/2024 10:37 AM COLD WATER MACHINE OPERATOR - 04/18/2024 11:59 PM COLD WATER MACHINE OPERATOR Hospital Encounter [address] [address] Discharge Disposition: Discharge to home or self care 04/17/2024 11:45 PM COLD WATER MACHINE OPERATOR - 04/17/2024 11:59 PM COLD WATER MACHINE OPERATOR Hospital Encounter [address] [address] Discharge Disposition: Discharge to home or self care 04/17/2024 3:45 AM COLD WATER MACHINE OPERATOR - 04/17/2024 11:59 PM COLD WATER MACHINE OPERATOR Hospital Encounter [address] [address] Discharge Disposition: Discharge to home or self care 04/13/2024 4:00 AM COLD WATER MACHINE OPERATOR - 04/13/2024 11:59 PM COLD WATER MACHINE OPERATOR Hospital Encounter [address] [address] Discharge Disposition: Discharge to home or self care 04/12/2024 4:00 AM COLD WATER MACHINE OPERATOR - 04/12/2024 11:59 PM COLD WATER MACHINE OPERATOR Hospital Encounter [address] [address] Discharge Disposition: Discharge to home or self care 04/11/2024 4:00 AM COLD WATER MACHINE OPERATOR - 04/11/2024 11:59 PM COLD WATER MACHINE OPERATOR Hospital Encounter [address] [address] Discharge Disposition: Discharge to home or self care 04/10/2024 4:52 AM COLD WATER MACHINE OPERATOR - 04/10/2024 11:59 PM COLD WATER MACHINE OPERATOR Hospital Encounter [address] [address] Discharge Disposition: Discharge to home or self care 04/09/2024 4:30 AM COLD WATER MACHINE OPERATOR - 04/09/2024 11:59 PM COLD WATER MACHINE OPERATOR Hospital Encounter [address] [address] Discharge Disposition: Discharge to home or self care 04/08/2024 4:30 AM COLD WATER MACHINE OPERATOR - 04/08/2024 11:59 PM COLD WATER MACHINE OPERATOR Hospital Encounter [address] [address] Discharge Disposition: Discharge to home or self care 04/06/2024 4:00 AM COLD WATER MACHINE OPERATOR - 04/06/2024 11:59 PM COLD WATER MACHINE OPERATOR Hospital Encounter [address] [address] Discharge Disposition: Discharge to home or self care 04/05/2024 4:00 AM COLD WATER MACHINE OPERATOR - 04/05/2024 11:59 PM COLD WATER MACHINE OPERATOR Hospital Encounter [address] [address] Discharge Disposition: Discharge to home or self care 04/04/2024 4:30 AM COLD WATER MACHINE OPERATOR - 04/04/2024 11:59 PM COLD WATER MACHINE OPERATOR Hospital Encounter [address] [address] Discharge Disposition: Discharge to home or self care 04/03/2024 3:10 AM COLD WATER MACHINE OPERATOR - 04/03/2024 11:59 PM COLD WATER MACHINE OPERATOR Hospital Encounter [address] [address] Discharge Disposition: Discharge to home or self care 04/01/2024 4:00 AM COLD WATER MACHINE OPERATOR - 04/01/2024 11:59 PM COLD WATER MACHINE OPERATOR Hospital Encounter [address] [address] Discharge Disposition: Discharge to home or self care 03/31/2024 4:30 AM COLD WATER MACHINE OPERATOR - 03/31/2024 11:59 PM COLD WATER MACHINE OPERATOR Hospital Encounter [address] [address] Discharge Disposition: Discharge to home or self care 03/30/2024 4:00 AM COLD WATER MACHINE OPERATOR - 03/30/2024 11:59 PM COLD WATER MACHINE OPERATOR Hospital Encounter [address] [address] Discharge Disposition: Discharge to home or self care 03/29/2024 3:30 AM COLD WATER MACHINE OPERATOR - 03/29/2024 11:59 PM COLD WATER MACHINE OPERATOR Hospital Encounter [address] [address] Discharge Disposition: Discharge to home or self care 03/28/2024 4:00 AM COLD WATER MACHINE OPERATOR - 03/28/2024 11:59 PM COLD WATER MACHINE OPERATOR Hospital Encounter [address] [address] Discharge Disposition: Discharge to home or self care 03/27/2024 4:00 AM COLD WATER MACHINE OPERATOR - 03/27/2024 11:59 PM COLD WATER MACHINE OPERATOR Hospital Encounter [address] [address] Discharge Disposition: Discharge to home or self care 03/24/2024 4:00 AM COLD WATER MACHINE OPERATOR - 03/24/2024 11:59 PM COLD WATER MACHINE OPERATOR Hospital Encounter [address] [address] Discharge Disposition: Discharge to home or self care 03/23/2024 4:00 AM COLD WATER MACHINE OPERATOR - 03/23/2024 11:59 PM COLD WATER MACHINE OPERATOR Hospital Encounter [address] [address] Discharge Disposition: Discharge to home or self care 03/22/2024 4:00 AM COLD WATER MACHINE OPERATOR - 03/22/2024 11:59 PM COLD WATER MACHINE OPERATOR Hospital Encounter [address] [address] Discharge Disposition: Discharge to home or self care 03/21/2024 4:00 AM COLD WATER MACHINE OPERATOR - 03/21/2024 11:59 PM COLD WATER MACHINE OPERATOR Hospital Encounter [address] [address] Discharge Disposition: Discharge to home or self care 03/21/2024 11:00 AM COLD WATER MACHINE OPERATOR - 03/21/2024 11:59 PM COLD WATER MACHINE OPERATOR Hospital Encounter [facility] [address] [place] [address] Abscess Discharge Disposition: Discharge to home or self care 03/20/2024 4:00 AM COLD WATER MACHINE OPERATOR - 03/20/2024 11:59 PM COLD WATER MACHINE OPERATOR Hospital Encounter [address] [address] Discharge Disposition: Discharge to home or self care 03/19/2024 4:00 AM COLD WATER MACHINE OPERATOR - 03/19/2024 11:59 PM COLD WATER MACHINE OPERATOR Hospital Encounter [address] [address] Discharge Disposition: Discharge to home or self care 03/18/2024 4:00 AM COLD WATER MACHINE OPERATOR - 03/18/2024 11:59 PM COLD WATER MACHINE OPERATOR Hospital Encounter [address] [address] Discharge Disposition: Discharge to home or self care 03/16/2024 11:51 AM COLD WATER MACHINE OPERATOR - 03/16/2024 11:59 PM COLD WATER MACHINE OPERATOR Hospital Encounter [address] [address] Discharge Disposition: Discharge to home or self care 03/15/2024 4:00 AM COLD WATER MACHINE OPERATOR - 03/15/2024 11:59 PM COLD WATER MACHINE OPERATOR Hospital Encounter [address] [address] Discharge Disposition: Discharge to home or self care 03/15/2024 11:00 AM COLD WATER MACHINE OPERATOR - 03/15/2024 11:59 PM COLD WATER MACHINE OPERATOR Hospital Encounter [facility] [address] [place] [address] Manuel Brock MD PhD Empyema ([facility]); Intra-abdominal infection Discharge Disposition: Discharge to home or self care 03/15/2024 3:00 PM COLD WATER MACHINE OPERATOR Office Visit [facility] Infectious Diseases [address] [place] [phone] Tutu Sampson MD Empyema ([facility]); Intra-abdominal abscess ([facility]) 03/14/2024 4:16 AM COLD WATER MACHINE OPERATOR - 03/14/2024 11:59 PM COLD WATER MACHINE OPERATOR Hospital Encounter [address] [address] Discharge Disposition: Discharge to home or self care 03/13/2024 4:00 AM COLD WATER MACHINE OPERATOR - 03/13/2024 11:59 PM COLD WATER MACHINE OPERATOR Hospital Encounter [address] [address] Discharge Disposition: Discharge to home or self care 03/10/2024 Telephone [facility] [address] [place] [address] Rylee Carson RN 03/09/2024 4:00 AM COLD WATER MACHINE OPERATOR - 03/09/2024 11:59 PM COLD WATER MACHINE OPERATOR Hospital Encounter [address] [address] Discharge Disposition: Discharge to home or self care 03/08/2024 Telephone [facility] Infectious Diseases [address] [place] [phone] Chris Zohreh Mcdaniel 03/08/2024 Orders Only [facility] Infectious Diseases [address] [facility] [address] [place] [address] Zohreh Perez Empyema (HCC) (Primary Dx); Intra-abdominal infection 03/08/2024 4:00 AM COLD WATER MACHINE OPERATOR - 03/08/2024 11:59 PM COLD WATER MACHINE OPERATOR Hospital Encounter [address] [address] Discharge Disposition: Discharge to home or self care 03/07/2024 Documentation [facility] Infectious Diseases [address] [phone] Ita Rand NP 02/22/2024 7:39 PM COLD WATER MACHINE OPERATOR - 03/07/2024 5:15 PM COLD WATER MACHINE OPERATOR Hospital Encounter [address] [phone] Chester Cifuentes MD Cowan, MD Sandra Dukes, MD Edward Ambriz, MD Brian Sanon, Migel Kinney MD Perihepatic fluid collection (Primary Dx); Abscess Discharge Disposition: Discharge to a medical terminologist care hospital 02/21/2024 Telephone [facility] Surgery [address] [place] [address] Medical Office Building [address] [place] [phone] Brenda Perez RN 02/21/2024 Telephone [facility] Cardiology [address] [facility] Advanced Medicine 8th [place] [address] [place] [address] Cee Bennett 02/14/2024 Orders Only [facility] Orthopaedic Surgery [address] [facility] 6th [place] [address] [place] [address] Nettie Reyes NP 02/11/2024 9:54 AM COLD WATER MACHINE OPERATOR - 02/11/2024 11:59 PM COLD WATER MACHINE OPERATOR Hospital Encounter [facility] Radiology [facility] [address] [place] [address] Abscess Discharge Disposition: Discharge to home or self care 02/10/2024 Orders Only [facility] [phone] Medicine 02/08/2024 Telephone [facility] Radiology [facility] [address] [place] [address] Rylee Carson RN 02/08/2024 10:15 AM COLD WATER MACHINE OPERATOR Office Visit [facility] Surgery [address] [facility] Floor [address] [place] [address] Migel Torres MD Colon adenocarcinoma (HCC) (Primary Dx) 02/07/2024 Orders Only [facility] Orthopaedic Surgery [address] [facility] Advanced Medicine 6th [place] [address] [place] [address] Nettie Reyes NP from Last 3 Months Allergies Active Allergy Reactions Criticality Noted Date Comments Chlorhexidine Itching Low 03/05/2024 Hydrochlorothiazide Angioedema High 04/17/2023 Lisinopril Edema Medium Medications donepeziL (ARICEPT) 10 mg tablet Take 1 tablet (10 mg total) by mouth every morning Active atorvastatin (Lipitor) 40 mg tablet Take 1 tablet (40 mg total) by mouth nightly 90 tablet 3 04/22/19 Active Additional Information Patient taking differently:40 mg oralEvery morning, Indications: hyperlipidemia, Informant: Self, Reported on 03/21/2024 acetaminophen (TYLENOL) 325 mg tablet Take 2 tablets (650 mg total) by mouth every 6 (six) hours as needed for pain 04/22/19 Active Additional Information Patient taking differently:650 mg [...] mouth 2 (two) times a day 10/08/[address] (PROTONIX) 40 mg EC tablet TAKE 1 TABLET BY MOUTH EVERY DAY 90 tablet 11/19/19 24 Active Additional Information Patient taking differently:40 mg oralEvery morning, Indications: Reflux, Informant: Self, Reported on 02/11/2024 sodium chloride 7 % solution for nebulization Take 1.5 mL by nebulization 2 (two) times a day 02/01/20 Active aspirin 81 mg chewable tablet Take [...] 02/23/2024 Assessment & Plan (03/07/2024 12:56 PM COLD WATER MACHINE OPERATOR): Patient is a 83 y.o. female history [...] 12/30/2023 Assessment & Plan (12/30/2023 4:27 PM COLD WATER MACHINE OPERATOR): IV infiltrated while running ferrous gluconate, subsequently [...] 12/28 Assessment & Plan (12/29/2023 3:42 PM COLD WATER MACHINE OPERATOR): CO2 15 with AG 10; suspect 2/2 PETE in the setting of anemia. Improving with improved PETE and Hgb - monitor BMP Altered mental status 12/29/2023 Assessment & Plan (12/30/2023 4:24 PM COLD WATER MACHINE OPERATOR): Per [id number]-[id number], patient's mental status altered this afternoon with intermittent reaching for things that were not there. CT head without acute process. Appropriately answering yes/no questions and exam is non-focal. May be some delirium iso anemia, other metabolic derangements. Has underlying hx of dementia, at time of DC AOx4 - continue home donepezil, buspar, mirtazipine Anemia 12/28/2023 Assessment & Plan (12/30/2023 4:24 PM COLD WATER MACHINE OPERATOR): Presenting with hemoglobin of 5.5. Although patient [...] 10/23/2023 Assessment & Plan (12/30/2023 4:22 PM COLD WATER MACHINE OPERATOR): Recent admission for anemia at which time [...] 09/16/2023 Assessment & Plan (12/29/2023 9:53 AM COLD WATER MACHINE OPERATOR): Decline in LVEF to 30% on TTE [...] 04/21/2023 Assessment & Plan (04/22/2023 1:45 PM COLD WATER MACHINE OPERATOR): Patient admits to feeling sad because she is not at home making her own food. Also admits to poor appetite. 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 SPECT 06/2023 normal -Hold home spironolactone -Continue metoprolol Assessment & Plan (11/16/2023 9:37 AM CDT): TTE 03/2023 w EF 30%, G2DD, mild to mod AR, mild MR. SPECT 06/2023 normal - patient is off her losartan and aldactone since last admission because of PETE - she was last seen by her creping machine operator I'm 11/07 with plan to start her [...] metop Assessment & Plan (04/22/2023 1:46 PM COLD WATER MACHINE OPERATOR): This would be her 3rd admission in [...] Of note, [facility] TTE 07/2022 LVEF 45-50%; [facility] TTE 05/06/2021 LVEF 62) - Cardiology Team B Consulted. No additional recommendations (other than start Spironolactone) - Patient should follow up with her Primary Outpatient Test Ske[facility] Dr. Mendoza Dyspnea on exertion 04/18/2023 Assessment & Plan (04/21/2023 12:45 PM COLD WATER MACHINE OPERATOR): Suspect acute on chronic CHF. However she [...] 04/17/2023 Assessment & Plan (04/22/2023 1:43 PM COLD WATER MACHINE OPERATOR): Initial Trach aspirate noted Haemophilus influenzae, Moraxella catarrhalis, Streptococcus pyogene. Started on Abx Therapy. - 04/20/23 Repeat CXR Tracheostomy tube projects over the mid thoracic trachea; Lungs clear; No pleural effusion or pneumothorax; Mediastinal contours and cardiac silhouette are normal. - Cefepime and Doxycyline course completed. 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 [...] Continue home buspar GERD (gastroesophageal reflux disease) Assessment & Plan (12/29/2023 3:02 AM COLD WATER MACHINE OPERATOR): Home protonix Assessment & Plan (10/19/2018 3:34 [...] (08/08/2018): Added automatically from request for surgery [id number] Aspiration pneumonitis 06/24/2018 Assessment & Plan (06/25/2018 [...] (12/09/2017): Added automatically from request for surgery [id number] Assessment & Plan (12/10/2017 1:57 PM CDT): [...] (12/03/2017): Added automatically from request for surgery [id number] Assessment & Plan (12/10/2017 1:58 PM CDT): With subglottic stenosis. Tulio #5, NAYANA. ENT will follow up with patient as [...] ELISHA 05/18/2017 Coronary artery disease invo lving [place] coronary artery of [place] heart 08/30/2017 Assessment & Plan (12/29/2023 9:45 AM COLD WATER MACHINE OPERATOR): S/p STEMI and VF arrest in s/p CFX stents. Nuclear tress test from 06/2023 negative for ischemia. LDL of 43 on labs from 03/2023. Asymptomatic. Continue ASA and atorvastatin. Assessment & Plan (12/29/2023 1:52 AM COLD WATER MACHINE OPERATOR): Continue statin. Holding ASA d/t likely GIB [...] below. Assessment & Plan (04/21/2023 2:46 PM COLD WATER MACHINE OPERATOR): History of STEMI (c/b VF arrest 04/2017 [...] & Plan (10/18/2018 11:33 AM CDT): S/p VA in 04/2017 with subsequent V Fib arrest [...] 08/30/2017 Assessment & Plan (12/29/2023 9:48 AM COLD WATER MACHINE OPERATOR): Borderline low today. Unclear on what medications [...] diary. Assessment & Plan (04/22/2023 1:46 PM COLD WATER MACHINE OPERATOR): -Blood pressure stable 124/52 Assessment & Plan [...] aricept Assessment & Plan (04/20/2023 3:45 PM COLD WATER MACHINE OPERATOR): Call patient's Pharmacy ([facility] [phone]). Pt no longer prescribed Namenda, Gabapentin nor [...] loss) and escitalopram for depression. Will defer medical terminologist management to PCP. Assessment & Plan (12/08/2017 [...] needed. Assessment & Plan (04/21/2023 2:06 PM COLD WATER MACHINE OPERATOR): Chronic, Normocytic. MCV 83, HgB 7.1 05/12/21. [...] (05/08/2021): Added automatically from request for surgery [id number] History of biliary stent insertion 04/24/2021 05/13/2021 Overview (04/24/2021): Added automatically from request for surgery [id number] Common bile duct dilation 04/06/2021 Overview (04/08/2021): Added automatically from request for surgery [id number] Vocal cord paralysis 07/26/2020 021 Overview (07/26/2020): Added automatically from request for surgery [id number] Bleeding from wound 06/24/2018 06/26/19 19 Assessment [...] 1 Assessment & Plan (01/11/2020 2:12 PM COLD WATER MACHINE OPERATOR): The patient feels that she would like [...] NOS Assessment & Plan (04/18/2023 1:39 AM COLD WATER MACHINE OPERATOR): Breast cancer s/p left mastoidectomy 2006 -Continue outpatient follow up. Immunizations Immunization Administration Dates Next Due Influenza, Quad, Adjuvantated, Intramuscular Influenza, Trivalent, High D ose, Split, Preservative Free, Intramuscular 01/06/2019,12/10/2017 Influenza, Trivalent, Preservative Free, Intramu scular 01/23/2009 Influenza, Unspecified 04/10/2023,11/22/2020 Jymob (J&J) SARS-CoV-2 Vaccination 05/28/2020 Pneumococcal Polysaccharide PPV23 07/08/2007 Social History Tobacco Use Types Packs/Day Years Used Date Smoking Tobacco: Former Cigarettes 1 53.2 1 964 - 05/23/2016 Smokeless Tobacco: Never Tobacco Cessation:Counseling Given: Not Answered Alcohol Use Standard Drinks/Week Comments No 0 (1 standard drink = 0.6 oz pur e alcohol) [facility] [place] Answer Date Recorded In the past 12 months has [employer] electric, gas, oil, or water company threatened to shut off services in your [...] 02/25/2024 How often do you attend chur or yazidi services? More than 4 times per year 02/25/2024 Do you belong to any clubs o r organizations such as mormon groups, unions, fraternal or athletic groups, or [...] any time in the past 12 [facility], were you homeless or living in a skilled nursing (including now)? No 02/25/2024 Personal Safety Answer Date Recorded Have you ever been in or are you currently in a harmful physical or emotional relationship or is someone making you feel afraid or unsafe? Patient unable to answer 03/21/2024 Comments No Sex and Gender Information Value Date Recorded Sex Assigned at Not on file Legal Sex Female 5:35 AM COLD WATER MACHINE OPERATOR Gender Identity Not on file Sexual Orientation Not on file Last Filed Vital Signs Vital Sign Reading Time Taken Comments Blood Pressure 156/40 03/21/2024 2:10 PM COLD WATER MACHINE OPERATOR Pulse 72 03/21/2024 2:10 PM COLD WATER MACHINE OPERATOR Temperature 36 C (96.8 F) 03/21/2024 12:10 PM COLD WATER MACHINE OPERATOR Respiratory Rate 16 03/21/2024 2:10 PM COLD WATER MACHINE OPERATOR Oxygen Saturation 100% 03/21/2024 2:10 PM COLD WATER MACHINE OPERATOR Inhaled Oxygen Concentration - - Weight 57.2 kg (126 lb 1.7 oz) 03/21/2024 12:22 PM COLD WATER MACHINE OPERATOR Height 149.9 cm (4' 11 ) 02/24/2024 11:52 AM COLD WATER MACHINE OPERATOR Body Mass Index 25.47 02/24/2024 11:52 AM COLD WATER MACHINE OPERATOR Plan of Treatment Not on file Goals Goal Patient Goal Type Associated Problems Recent Progress Patient-Stated? Author Colorectal Pre-Surgical Steps Care Plan Colorectal Pre-Surgical Plan Dyana Amezcua RN Medical Devices Implanted Type Area Fence Machine Operator Device Identifier Shelf Expiration Date Model / Serial / Lot Stent Implanted:Qty: 2 Stent Coronary [employer] Ell-3000 Eliachar 15mm [id number] Medium Stent Laryngeal - [id number] - [id number] Implanted:Qty: 1 on 04/13/2019 by Jean Claude Mendoza MD PhD at [facility] Stent N/A: Pharynx [employer] 04/14/2019 ELL-3000 / [id number] / [employer] St-512-S 12mm 1 Piece Construction Ultra Smooth Plus Surface Treatement - [id number] Implanted:Qty: 1 on 01/05/2019 by Jean Claude Mendoza MD PhD at [facility] Tube N/A: Throat [employer] ST-512-S / / [employer] Lsf-25 Surface Button Suture Hole 10mm Stent Laryngeal Silicone Adult - [id number] Implanted:Qty: 1 on 06/02/2018 by Jean Claude Mendoza MD PhD at [facility] N/A: Throat [employer] LSF-25 / / [id number] [employer] 3x2in Nonreinforced Permanent Implantable Thk.04in - [id number] Implanted:Qty: 1 on 10/06/2018 by Jean Claude Mendoza MD PhD at [facility] N/A: Throat [employer]plant[employer] [id number] 04/13/2022 / / [id number] Explanted Type Area Fence Machine Operator Device Identifier Shelf Expiration Date Model / Serial / Lot [employer] Scientific Joe [id number] Advanix 10fr 5cm Rapid Exchange Temporary [place] Stent - [id number] Implanted:Qty: 1 on 04/08/2021 by Guzman Lynn MD at [facility] Explanted:Qty: 1 on 05/09/2021 by Joao Hinton MD at [facility] Stent Bile Duct [employer] Joe 12/13/2022 [id number] / / [id number] [employer] 6554 Tyler Flexi-Stent 5fr 7cm Small Pigtail Flexible .035in Stent - [id number] Implanted:Qty: 1 on 04/08/2021 by Guzman Lynn MD at [facility] Explanted:Qty: 1 on 05/09/2021 by Joao Hinton MD at [facility] Stent Pancreas [employer] 12/22/2025 [id number] / / [id number] Procedures Procedure Name Priority Date/Time Associated Diagnosis Comments DIFFERENTIAL AUTO STAT 04/18/2024 8:0 0 AM COLD WATER MACHINE OPERATOR CBC WITH AUTO DIFFERENTIAL STAT 04/18/2024 8:00 AM COLD WATER MACHINE OPERATOR EGFR Routine 04/17/2024 4:58 AM COLD WATER MACHINE OPERATOR DIFFERENTIAL AUTO Routine 04/17/2024 4:5 8 AM COLD WATER MACHINE OPERATOR CBC WITH AUTO DIFFERENTIAL Routine 04/17/2024 4:58 AM COLD WATER MACHINE OPERATOR COMPREHENSIVE METABOLIC PANEL Routine 04/17/2024 4:58 AM COLD WATER MACHINE OPERATOR EGFR Routine 04/13/2024 4:00 AM COLD WATER MACHINE OPERATOR DIFFERENTIAL AUTO Routine 04/13/2024 4:0 0 AM COLD WATER MACHINE OPERATOR PHOSPHORUS Routine 04/13/2024 4:00 AM COLD WATER MACHINE OPERATOR MAGNESIUM Routine 04/13/2024 4:00 AM COLD WATER MACHINE OPERATOR CBC WITH AUTO DIFFERENTIAL Routine 04/13/2024 4:00 AM COLD WATER MACHINE OPERATOR COMPREHENSIVE METABOLIC PANEL Routine 04/13/2024 4:00 AM COLD WATER MACHINE OPERATOR EGFR Routine 04/12/2024 4:00 AM COLD WATER MACHINE OPERATOR PHOSPHORUS Routine 04/12/2024 4:00 AM COLD WATER MACHINE OPERATOR MAGNESIUM Routine 04/12/2024 4:00 AM COLD WATER MACHINE OPERATOR BASIC METABOLIC PANEL Routine 04/12/2024 4:00 AM COLD WATER MACHINE OPERATOR EGFR Routine 04/11/2024 4:00 AM COLD WATER MACHINE OPERATOR PHOSPHORUS Routine 04/11/2024 4:00 AM COLD WATER MACHINE OPERATOR MAGNESIUM Routine 04/11/2024 4:00 AM COLD WATER MACHINE OPERATOR BASIC METABOLIC PANEL Routine 04/11/2024 4:00 AM COLD WATER MACHINE OPERATOR EGFR Routine 04/10/2024 4:15 AM COLD WATER MACHINE OPERATOR DIFFERENTIAL AUTO Routine 04/10/2024 4:1 5 AM COLD WATER MACHINE OPERATOR PHOSPHORUS Routine 04/10/2024 4:15 AM COLD WATER MACHINE OPERATOR MAGNESIUM Routine 04/10/2024 4:15 AM COLD WATER MACHINE OPERATOR CBC WITH AUTO DIFFERENTIAL Routine 04/10/2024 4:15 AM COLD WATER MACHINE OPERATOR COMPREHENSIVE METABOLIC PANEL Routine 04/10/2024 4:15 AM COLD WATER MACHINE OPERATOR EGFR Routine 04/09/2024 4:30 AM COLD WATER MACHINE OPERATOR PHOSPHORUS Routine 04/09/2024 4:30 AM COLD WATER MACHINE OPERATOR MAGNESIUM Routine 04/09/2024 4:30 AM COLD WATER MACHINE OPERATOR COMPREHENSIVE METABOLIC PANEL Routine 04/09/2024 4:30 AM COLD WATER MACHINE OPERATOR EGFR Routine 04/08/2024 4:30 AM COLD WATER MACHINE OPERATOR CRITICAL RESULT CALLBACK CHEMISTRY Routine 04/08/2024 4:30 AM COLD WATER MACHINE OPERATOR PHOSPHORUS Routine 04/08/2024 4:30 AM COLD WATER MACHINE OPERATOR MAGNESIUM Routine 04/08/2024 4:30 AM COLD WATER MACHINE OPERATOR COMPREHENSIVE METABOLIC PANEL Routine 04/08/2024 4:30 AM COLD WATER MACHINE OPERATOR EGFR Routine 04/06/2024 4:00 AM COLD WATER MACHINE OPERATOR DIFFERENTIAL AUTO Routine 04/06/2024 4:0 0 AM COLD WATER MACHINE OPERATOR COMPREHENSIVE METABOLIC PANEL Routine 04/06/2024 4:00 AM COLD WATER MACHINE OPERATOR CBC WITH AUTO DIFFERENTIAL Routine 04/06/2024 4:00 AM COLD WATER MACHINE OPERATOR EGFR Routine 04/05/2024 4:00 AM COLD WATER MACHINE OPERATOR BASIC METABOLIC PANEL Routine 04/05/2024 4:00 AM COLD WATER MACHINE OPERATOR EGFR Routine 04/04/2024 3:45 AM COLD WATER MACHINE OPERATOR BASIC METABOLIC PANEL Routine 04/04/2024 3:45 AM COLD WATER MACHINE OPERATOR EGFR STAT 04/03/2024 6:35 AM COLD WATER MACHINE OPERATOR DIFFERENTIAL AUTO STAT 04/03/2024 6:3 5 AM COLD WATER MACHINE OPERATOR CBC WITH AUTO DIFFERENTIAL STAT 04/03/2024 6:35 AM COLD WATER MACHINE OPERATOR BASIC METABOLIC PANEL STAT 04/03/2024 6:35 AM COLD WATER MACHINE OPERATOR EGFR Routine 04/03/2024 3:10 AM COLD WATER MACHINE OPERATOR BASIC METABOLIC PANEL Routine 04/03/2024 3:10 AM COLD WATER MACHINE OPERATOR EGFR Routine 04/01/2024 4:00 AM COLD WATER MACHINE OPERATOR BASIC METABOLIC PANEL Routine 04/01/2024 4:00 AM COLD WATER MACHINE OPERATOR EGFR Routine 03/31/2024 4:30 AM COLD WATER MACHINE OPERATOR FERRITIN Routine 03/31/2024 4:30 AM COLD WATER MACHINE OPERATOR HEMOGLOBIN Routine 03/31/2024 4:30 AM COLD WATER MACHINE OPERATOR HEMATOCRIT Routine 03/31/2024 4:30 AM COLD WATER MACHINE OPERATOR BASIC METABOLIC PANEL Routine 03/31/2024 4:30 AM COLD WATER MACHINE OPERATOR C. DIFFICILE TESTING Routine 03/30/2024 5:18 PM COLD WATER MACHINE OPERATOR EGFR STAT 03/30/2024 4:00 AM COLD WATER MACHINE OPERATOR DIFFERENTIAL AUTO STAT 03/30/2024 4:0 0 AM COLD WATER MACHINE OPERATOR PHOSPHORUS STAT 03/30/2024 4:00 AM COLD WATER MACHINE OPERATOR MAGNESIUM STAT 03/30/2024 4:00 AM COLD WATER MACHINE OPERATOR CBC WITH AUTO DIFFERENTIAL STAT 03/30/2024 4:00 AM COLD WATER MACHINE OPERATOR COMPREHENSIVE METABOLIC PANEL STAT 03/30/2024 4:00 AM COLD WATER MACHINE OPERATOR EGFR STAT 03/29/2024 3:30 AM COLD WATER MACHINE OPERATOR DIFFERENTIAL AUTO Routine 03/29/2024 3:3 0 AM COLD WATER MACHINE OPERATOR CBC WITH AUTO DIFFERENTIAL Routine 03/29/2024 3:30 AM COLD WATER MACHINE OPERATOR BASIC METABOLIC PANEL STAT 03/29/2024 3:30 AM COLD WATER MACHINE OPERATOR EGFR Routine 03/28/2024 4:00 AM COLD WATER MACHINE OPERATOR RENAL FUNCTION PANEL Routine 03/28/2024 4:00 AM COLD WATER MACHINE OPERATOR DIFFERENTIAL AUTO Routine 03/27/2024 9:4 6 AM COLD WATER MACHINE OPERATOR CBC WITH AUTO DIFFERENTIAL Routine 03/27/2024 9:46 AM COLD WATER MACHINE OPERATOR EGFR STAT 03/27/2024 4:00 AM COLD WATER MACHINE OPERATOR DIFFERENTIAL AUTO STAT 03/27/2024 4:0 0 AM COLD WATER MACHINE OPERATOR CBC WITH AUTO DIFFERENTIAL STAT 03/27/2024 4:00 AM COLD WATER MACHINE OPERATOR PHOSPHORUS Routine 03/27/2024 4:00 AM COLD WATER MACHINE OPERATOR MAGNESIUM Routine 03/27/2024 4:00 AM COLD WATER MACHINE OPERATOR COMPREHENSIVE METABOLIC PANEL STAT 03/27/2024 4:00 AM COLD WATER MACHINE OPERATOR EGFR Routine 03/24/2024 4:00 AM COLD WATER MACHINE OPERATOR PHOSPHORUS Routine 03/24/2024 4:00 AM COLD WATER MACHINE OPERATOR BASIC METABOLIC PANEL Routine 03/24/2024 4:00 AM COLD WATER MACHINE OPERATOR EGFR Routine 03/23/2024 4:00 AM COLD WATER MACHINE OPERATOR DIFFERENTIAL AUTO Routine 03/23/2024 4:0 0 AM COLD WATER MACHINE OPERATOR CBC WITH AUTO DIFFERENTIAL Routine 03/23/2024 4:00 AM COLD WATER MACHINE OPERATOR PHOSPHORUS Routine 03/23/2024 4:00 AM COLD WATER MACHINE OPERATOR MAGNESIUM Routine 03/23/2024 4:00 AM COLD WATER MACHINE OPERATOR COMPREHENSIVE METABOLIC PANEL Routine 03/23/2024 4:00 AM COLD WATER MACHINE OPERATOR PHOSPHORUS Routine 03/22/2024 4:00 AM COLD WATER MACHINE OPERATOR MAGNESIUM Routine 03/22/2024 4:00 AM COLD WATER MACHINE OPERATOR EGFR Routine 03/22/2024 4:00 AM COLD WATER MACHINE OPERATOR COMPREHENSIVE METABOLIC PANEL Routine 03/22/2024 4:00 AM COLD WATER MACHINE OPERATOR ABSCESS CATHETER INJECTION Schedule Routine, Read Routine (OP Routine) 03/21/2024 2:00 PM COLD WATER MACHINE OPERATOR Abscess EGFR STAT 03/21/2024 4:00 AM COLD WATER MACHINE OPERATOR COMPREHENSIVE METABOLIC PANEL STAT 03/21/2024 4:00 AM COLD WATER MACHINE OPERATOR C. DIFFICILE TESTING Routine 03/20/2024 7:00 PM COLD WATER MACHINE OPERATOR EGFR Routine 03/20/2024 4:00 AM COLD WATER MACHINE OPERATOR DIFFERENTIAL AUTO Routine 03/20/2024 4:0 0 AM COLD WATER MACHINE OPERATOR TRIGLYCERIDES Routine 03/20/2024 4:00 AM COLD WATER MACHINE OPERATOR PHOSPHORUS, SERUM Routine 03/20/2024 4:0 0 AM COLD WATER MACHINE OPERATOR MAGNESIUM Routine 03/20/2024 4:00 AM COLD WATER MACHINE OPERATOR CBC WITH AUTO DIFFERENTIAL Routine 03/20/2024 4:00 AM COLD WATER MACHINE OPERATOR COMPREHENSIVE METABOLIC PANEL Routine 03/20/2024 4:00 AM COLD WATER MACHINE OPERATOR EGFR STAT 03/19/2024 4:00 AM COLD WATER MACHINE OPERATOR COMPREHENSIVE METABOLIC PANEL STAT 03/19/2024 4:00 AM COLD WATER MACHINE OPERATOR PHOSPHORUS Routine 03/18/2024 4:00 AM COLD WATER MACHINE OPERATOR EGFR Routine 03/16/2024 11:51 AM COLD WATER MACHINE OPERATOR DIFFERENTIAL AUTO Routine 03/16/2024 11: 51 AM COLD WATER MACHINE OPERATOR CBC WITH AUTO DIFFERENTIAL Routine 03/16/2024 11:51 AM COLD WATER MACHINE OPERATOR COMPREHENSIVE METABOLIC PANEL Routine 03/16/2024 11:51 AM COLD WATER MACHINE OPERATOR MISLABLED TEST Routine 03/15/2024 4:30 PM COLD WATER MACHINE OPERATOR CT CHEST ABDOMEN PELVIS W CONTRAST Schedule Routine, Read Routine (OP Routine) 03/15/2024 3:00 PM COLD WATER MACHINE OPERATOR Empyema (HCC) Intra-abdominal infection EGFR Routine 03/15/2024 4:00 AM COLD WATER MACHINE OPERATOR PHOSPHORUS Routine 03/15/2024 4:00 AM COLD WATER MACHINE OPERATOR MAGNESIUM Routine 03/15/2024 4:00 AM COLD WATER MACHINE OPERATOR COMPREHENSIVE METABOLIC PANEL Routine 03/15/2024 4:00 AM COLD WATER MACHINE OPERATOR EGFR Routine 03/14/2024 4:16 AM COLD WATER MACHINE OPERATOR PHOSPHORUS Routine 03/14/2024 4:16 AM COLD WATER MACHINE OPERATOR MAGNESIUM Routine 03/14/2024 4:16 AM COLD WATER MACHINE OPERATOR COMPREHENSIVE METABOLIC PANEL Routine 03/14/2024 4:16 AM COLD WATER MACHINE OPERATOR MANUAL DIFFERENTIAL Routine 03/13/2024 4 :20 AM COLD WATER MACHINE OPERATOR EGFR Routine 03/13/2024 4:20 AM COLD WATER MACHINE OPERATOR PHOSPHORUS Routine 03/13/2024 4:20 AM COLD WATER MACHINE OPERATOR MAGNESIUM Routine 03/13/2024 4:20 AM COLD WATER MACHINE OPERATOR CBC WITH AUTO DIFFERENTIAL Routine 03/13/2024 4:20 AM COLD WATER MACHINE OPERATOR COMPREHENSIVE METABOLIC PANEL Routine 03/13/2024 4:20 AM COLD WATER MACHINE OPERATOR EGFR STAT 03/09/2024 4:00 AM COLD WATER MACHINE OPERATOR DIFFERENTIAL AUTO STAT 03/09/2024 4:0 0 AM COLD WATER MACHINE OPERATOR PHOSPHORUS STAT 03/09/2024 4:00 AM COLD WATER MACHINE OPERATOR MAGNESIUM STAT 03/09/2024 4:00 AM COLD WATER MACHINE OPERATOR CBC WITH AUTO DIFFERENTIAL STAT 03/09/2024 4:00 AM COLD WATER MACHINE OPERATOR COMPREHENSIVE METABOLIC PANEL STAT 03/09/2024 4:00 AM COLD WATER MACHINE OPERATOR EGFR Routine 03/08/2024 12:52 PM COLD WATER MACHINE OPERATOR COMPREHENSIVE METABOLIC PANEL Routine 03/08/2024 12:52 PM COLD WATER MACHINE OPERATOR MAGNESIUM Routine 03/08/2024 4:00 AM COLD WATER MACHINE OPERATOR CRITICAL RESULT CALLBACK CHEMISTRY Routine 03/08/2024 4:00 AM COLD WATER MACHINE OPERATOR EGFR Routine 03/08/2024 4:00 AM COLD WATER MACHINE OPERATOR DIFFERENTIAL AUTO Routine 03/08/2024 4:0 0 AM COLD WATER MACHINE OPERATOR APTT Routine 03/08/2024 4:00 AM COLD WATER MACHINE OPERATOR PROTIME-INR Routine 03/08/2024 4:00 AM COLD WATER MACHINE OPERATOR CBC WITH AUTO DIFFERENTIAL Routine 03/08/2024 4:00 AM COLD WATER MACHINE OPERATOR COMPREHENSIVE METABOLIC PANEL Routine 03/08/2024 4:00 AM COLD WATER MACHINE OPERATOR POCT GLUCOSE DEVICE Routine 03/07/2024 1 2:23 PM COLD WATER MACHINE OPERATOR CT ABDOMEN PELVIS W CONTRAST IP Routine 03/07/2024 12:08 PM COLD WATER MACHINE OPERATOR POCT GLUCOSE DEVICE Routine 03/07/2024 9 :24 AM COLD WATER MACHINE OPERATOR POCT GLUCOSE DEVICE Routine 03/06/2024 4 :50 PM COLD WATER MACHINE OPERATOR POCT GLUCOSE DEVICE Routine 03/06/2024 1 2:18 PM COLD WATER MACHINE OPERATOR CBC WITH AUTO DIFFERENTIAL Timed 03/06/2024 8:53 AM COLD WATER MACHINE OPERATOR DIFFERENTIAL AUTO Timed 03/06/2024 8:5 3 AM COLD WATER MACHINE OPERATOR POCT GLUCOSE DEVICE Routine 03/06/2024 8 :38 AM COLD WATER MACHINE OPERATOR CBC WITHOUT DIFFERENTIAL Routine 03/06/2024 5:02 AM COLD WATER MACHINE OPERATOR PREPARE RBC Timed 03/05/2024 11:29 PM COLD WATER MACHINE OPERATOR EGFR Timed 03/05/2024 10:37 PM COLD WATER MACHINE OPERATOR CBC WITHOUT DIFFERENTIAL Timed 03/05/2024 10:37 PM COLD WATER MACHINE OPERATOR BASIC METABOLIC PANEL Timed 03/05/2024 10:37 PM COLD WATER MACHINE OPERATOR POCT GLUCOSE DEVICE Routine 03/05/2024 8 :48 PM COLD WATER MACHINE OPERATOR POCT GLUCOSE DEVICE Routine 03/05/2024 4 :37 PM COLD WATER MACHINE OPERATOR POCT GLUCOSE DEVICE Routine 03/05/2024 1 2:05 PM COLD WATER MACHINE OPERATOR POCT GLUCOSE DEVICE Routine 03/05/2024 7 :41 AM COLD WATER MACHINE OPERATOR EGFR Timed 03/05/2024 12:14 AM COLD WATER MACHINE OPERATOR MAGNESIUM Timed 03/05/2024 12:14 AM COLD WATER MACHINE OPERATOR PHOSPHORUS Timed 03/05/2024 12:14 AM COLD WATER MACHINE OPERATOR BASIC METABOLIC PANEL Timed 03/05/2024 12:14 AM COLD WATER MACHINE OPERATOR CBC WITHOUT DIFFERENTIAL Timed 03/05/2024 12:14 AM COLD WATER MACHINE OPERATOR POCT GLUCOSE DEVICE Routine 03/04/2024 1 1:30 PM COLD WATER MACHINE OPERATOR POCT GLUCOSE DEVICE Routine 03/04/2024 6 :28 PM COLD WATER MACHINE OPERATOR TYPE AND SCREEN Timed 03/04/2024 11:16 AM COLD WATER MACHINE OPERATOR POCT GLUCOSE DEVICE Routine 03/04/2024 1 1:11 AM COLD WATER MACHINE OPERATOR POCT GLUCOSE DEVICE Routine 03/04/2024 8 :09 AM COLD WATER MACHINE OPERATOR EGFR Timed 03/03/2024 11:18 PM COLD WATER MACHINE OPERATOR CBC WITHOUT DIFFERENTIAL Timed 03/03/2024 11:18 PM COLD WATER MACHINE OPERATOR PHOSPHORUS Timed 03/03/2024 11:18 PM COLD WATER MACHINE OPERATOR MAGNESIUM Timed 03/03/2024 11:18 PM COLD WATER MACHINE OPERATOR BASIC METABOLIC PANEL Timed 03/03/2024 11:18 PM COLD WATER MACHINE OPERATOR POCT GLUCOSE DEVICE Routine 03/03/2024 9 :06 PM COLD WATER MACHINE OPERATOR POCT GLUCOSE DEVICE Routine 03/03/2024 5 :08 PM COLD WATER MACHINE OPERATOR POCT GLUCOSE DEVICE Routine 03/03/2024 1 1:46 AM COLD WATER MACHINE OPERATOR POCT GLUCOSE DEVICE Routine 03/03/2024 8 :48 AM COLD WATER MACHINE OPERATOR POCT GLUCOSE DEVICE Routine 03/02/2024 9 :09 PM COLD WATER MACHINE OPERATOR EGFR Timed 03/02/2024 9:08 PM COLD WATER MACHINE OPERATOR PHOSPHORUS Timed 03/02/2024 9:08 PM COLD WATER MACHINE OPERATOR MAGNESIUM Timed 03/02/2024 9:08 PM COLD WATER MACHINE OPERATOR CBC WITHOUT DIFFERENTIAL Timed 03/02/2024 9:08 PM COLD WATER MACHINE OPERATOR BASIC METABOLIC PANEL Timed 03/02/2024 9:08 PM COLD WATER MACHINE OPERATOR XR CHEST 1 VIEW IP Routine 03/02/2024 6:42 PM COLD WATER MACHINE OPERATOR POCT GLUCOSE DEVICE Routine 03/02/2024 4 :35 PM COLD WATER MACHINE OPERATOR POCT GLUCOSE DEVICE Routine 03/02/2024 1 2:33 PM COLD WATER MACHINE OPERATOR INFECTION PREVENTION VRE CULTURE Routine 03/02/2024 11:17 AM COLD WATER MACHINE OPERATOR C. DIFFICILE TESTING Routine 03/02/2024 11:17 AM COLD WATER MACHINE OPERATOR XR CHEST 1 VIEW IP Routine 03/02/2024 10:26 AM COLD WATER MACHINE OPERATOR POCT GLUCOSE DEVICE Routine 03/02/2024 8 :21 AM COLD WATER MACHINE OPERATOR EGFR Timed 03/02/2024 12:06 AM COLD WATER MACHINE OPERATOR PHOSPHORUS Timed 03/02/2024 12:06 AM COLD WATER MACHINE OPERATOR MAGNESIUM Timed 03/02/2024 12:06 AM COLD WATER MACHINE OPERATOR BASIC METABOLIC PANEL Timed 03/02/2024 12:06 AM COLD WATER MACHINE OPERATOR CBC WITHOUT DIFFERENTIAL Timed 03/02/2024 12:06 AM COLD WATER MACHINE OPERATOR POCT GLUCOSE DEVICE Routine 03/01/2024 8 :18 PM COLD WATER MACHINE OPERATOR POCT GLUCOSE DEVICE Routine 03/01/2024 6 :39 PM COLD WATER MACHINE OPERATOR ABSCESS TUBE EXCHANGE IP Routine 03/01/2024 12:40 PM COLD WATER MACHINE OPERATOR HEPATIC FUNCTION PANEL Routine 10:12 PM COLD WATER MACHINE OPERATOR EGFR Routine 02/29/2024 10:12 PM COLD WATER MACHINE OPERATOR CBC WITHOUT DIFFERENTIAL Routine 02/29/2024 10:12 PM COLD WATER MACHINE OPERATOR BASIC METABOLIC PANEL Routine 02/29/2024 10:12 PM COLD WATER MACHINE OPERATOR PHOSPHORUS Routine 02/29/2024 10:12 PM COLD WATER MACHINE OPERATOR MAGNESIUM Routine 02/29/2024 10:12 PM COLD WATER MACHINE OPERATOR POCT GLUCOSE DEVICE Routine 02/29/2024 8 :47 PM COLD WATER MACHINE OPERATOR CT CHEST ABDOMEN PELVIS W CONTRAST IP Routine 02/29/2024 5:24 PM COLD WATER MACHINE OPERATOR POCT GLUCOSE DEVICE Routine 02/29/2024 4 :58 PM COLD WATER MACHINE OPERATOR POCT GLUCOSE DEVICE Routine 02/29/2024 1 2:21 PM COLD WATER MACHINE OPERATOR POCT GLUCOSE DEVICE Routine 02/29/2024 8 :23 AM COLD WATER MACHINE OPERATOR EGFR Routine 02/28/2024 9:37 PM COLD WATER MACHINE OPERATOR CBC WITHOUT DIFFERENTIAL Routine 02/28/2024 9:37 PM COLD WATER MACHINE OPERATOR BASIC METABOLIC PANEL Routine 02/28/2024 9:37 PM COLD WATER MACHINE OPERATOR PHOSPHORUS Routine 02/28/2024 9:37 PM COLD WATER MACHINE OPERATOR MAGNESIUM Routine 02/28/2024 9:37 PM COLD WATER MACHINE OPERATOR POCT GLUCOSE DEVICE Routine 02/28/2024 8 :33 PM COLD WATER MACHINE OPERATOR POCT GLUCOSE DEVICE Routine 02/28/2024 4 :38 PM COLD WATER MACHINE OPERATOR POCT GLUCOSE DEVICE Routine 02/28/2024 1 2:59 PM COLD WATER MACHINE OPERATOR POCT GLUCOSE DEVICE Routine 02/28/2024 1 1:42 AM COLD WATER MACHINE OPERATOR POCT GLUCOSE DEVICE Routine 02/28/2024 7 :54 AM COLD WATER MACHINE OPERATOR POCT GLUCOSE DEVICE Routine 02/27/2024 8 :39 PM COLD WATER MACHINE OPERATOR POCT GLUCOSE DEVICE Routine 02/27/2024 4 :35 PM COLD WATER MACHINE OPERATOR POCT GLUCOSE DEVICE Routine 02/27/2024 1 1:44 AM COLD WATER MACHINE OPERATOR XR CHEST 1 VIEW IP Routine 02/27/2024 8:10 AM COLD WATER MACHINE OPERATOR POCT GLUCOSE DEVICE Routine 02/27/2024 7 :55 AM COLD WATER MACHINE OPERATOR EGFR Routine 02/26/2024 9:45 PM COLD WATER MACHINE OPERATOR BASIC METABOLIC PANEL Routine 02/26/2024 9:45 PM COLD WATER MACHINE OPERATOR CBC WITHOUT DIFFERENTIAL Routine 02/26/2024 9:45 PM COLD WATER MACHINE OPERATOR PHOSPHORUS Routine 02/26/2024 9:45 PM COLD WATER MACHINE OPERATOR MAGNESIUM Routine 02/26/2024 9:45 PM COLD WATER MACHINE OPERATOR POCT GLUCOSE DEVICE Routine 02/26/2024 8 :33 PM COLD WATER MACHINE OPERATOR POCT GLUCOSE DEVICE Routine 02/26/2024 5 :56 PM COLD WATER MACHINE OPERATOR POCT GLUCOSE DEVICE Routine 02/26/2024 1 2:10 PM COLD WATER MACHINE OPERATOR POCT GLUCOSE DEVICE Routine 02/26/2024 7 :47 AM COLD WATER MACHINE OPERATOR EGFR Routine 02/25/2024 11:37 PM COLD WATER MACHINE OPERATOR PHOSPHORUS Routine 02/25/2024 11:37 PM COLD WATER MACHINE OPERATOR MAGNESIUM Routine 02/25/2024 11:37 PM COLD WATER MACHINE OPERATOR BASIC METABOLIC PANEL Routine 02/25/2024 11:37 PM COLD WATER MACHINE OPERATOR CBC WITHOUT DIFFERENTIAL Routine 02/25/2024 11:37 PM COLD WATER MACHINE OPERATOR POCT GLUCOSE DEVICE Routine 02/25/2024 8 :54 PM COLD WATER MACHINE OPERATOR POCT GLUCOSE DEVICE Routine 02/25/2024 4 :41 PM COLD WATER MACHINE OPERATOR POCT GLUCOSE DEVICE Routine 02/25/2024 2 :42 PM COLD WATER MACHINE OPERATOR IMAGE GUIDED DRAINAGE PERITONEAL OR RETROPERITONEAL FLUID COLLECTION IP Routine 02/25/2024 1:44 PM COLD WATER MACHINE OPERATOR AEROBIC AND ANAEROBIC CULTURE AND GRAM STAIN Routine 02/25/2024 1:40 PM COLD WATER MACHINE OPERATOR POCT GLUCOSE DEVICE Routine 02/25/2024 6 :45 AM COLD WATER MACHINE OPERATOR POCT GLUCOSE DEVICE Routine 02/25/2024 1 2:48 AM COLD WATER MACHINE OPERATOR EGFR Routine 02/24/2024 10:21 PM COLD WATER MACHINE OPERATOR PHOSPHORUS Routine 02/24/2024 10:21 PM COLD WATER MACHINE OPERATOR MAGNESIUM Routine 02/24/2024 10:21 PM COLD WATER MACHINE OPERATOR BASIC METABOLIC PANEL Routine 02/24/2024 10:21 PM COLD WATER MACHINE OPERATOR CBC WITHOUT DIFFERENTIAL Routine 02/24/2024 10:21 PM COLD WATER MACHINE OPERATOR POCT GLUCOSE DEVICE Routine 02/24/2024 5 :55 PM COLD WATER MACHINE OPERATOR AEROBIC AND ANAEROBIC CULTURE AND GRAM STAIN Routine 02/24/2024 1:13 PM COLD WATER MACHINE OPERATOR CHEST DRAINAGE W IMAGING RIGHT ED 02/24/2024 1:05 PM COLD WATER MACHINE OPERATOR CBC WITHOUT DIFFERENTIAL Timed 02/24/2024 10:06 AM COLD WATER MACHINE OPERATOR TRANSFUSE RED BLOOD CELLS Timed 02/24/2024 6:17 AM COLD WATER MACHINE OPERATOR PREPARE RBC Timed 02/24/2024 5:32 AM COLD WATER MACHINE OPERATOR TYPE AND SCREEN Timed 02/24/2024 2:29 AM COLD WATER MACHINE OPERATOR CT CHEST W CONTRAST ED 02/23/2024 1 0:41 PM COLD WATER MACHINE OPERATOR EGFR Routine 02/23/2024 9:08 PM COLD WATER MACHINE OPERATOR VANCOMYCIN LEVEL RANDOM Routine 02/23/2024 9:08 PM COLD WATER MACHINE OPERATOR BASIC METABOLIC PANEL Routine 02/23/2024 9:08 PM COLD WATER MACHINE OPERATOR CBC WITHOUT DIFFERENTIAL Routine 02/23/2024 9:08 PM COLD WATER MACHINE OPERATOR URINALYSIS, MICROSCOPIC ONLY STAT 02/23/2024 11:11 AM COLD WATER MACHINE OPERATOR URINALYSIS AND REFLEX TO MICROSCOPIC STAT 02/23/2024 11:11 AM COLD WATER MACHINE OPERATOR BLOOD CULTURE STAT 02/23/2024 9:58 AM COLD WATER MACHINE OPERATOR BLOOD CULTURE STAT 02/23/2024 9:58 AM COLD WATER MACHINE OPERATOR POCT LACTATE - DEVICE Routine 02/23/2024 12:01 AM COLD WATER MACHINE OPERATOR POCT GLUCOSE DEVICE Routine 02/22/2024 1 1:59 PM COLD WATER MACHINE OPERATOR CT ABDOMEN PELVIS W CONTRAST ED 02/22/2024 10:57 PM COLD WATER MACHINE OPERATOR EGFR STAT 02/22/2024 8:41 PM COLD WATER MACHINE OPERATOR DIFFERENTIAL AUTO STAT 02/22/2024 8:4 1 PM COLD WATER MACHINE OPERATOR COMPREHENSIVE METABOLIC PANEL STAT 02/22/2024 8:41 PM COLD WATER MACHINE OPERATOR CBC WITH AUTO DIFFERENTIAL STAT 02/22/2024 8:41 PM COLD WATER MACHINE OPERATOR XR CHEST PA LATERAL 2 VIEWS ED 02/22/2024 6:18 PM COLD WATER MACHINE OPERATOR ECG 12-LEAD STAT 02/22/2024 5:23 PM COLD WATER MACHINE OPERATOR CS GLUCOSE Routine Gen Lab 02/14/2024 4:45 AM COLD WATER MACHINE OPERATOR EGFR Routine Gen Lab 02/14/2024 4:45 AM COLD WATER MACHINE OPERATOR COMPREHENSIVE METABOLIC PANEL WITHOUT GLUCOSE (OUTREACH) Routine Gen Lab 02/14/2024 4:45 AM COLD WATER MACHINE OPERATOR DIFFERENTIAL AUTO Routine Gen Lab 02/14/2024 4:4 5 AM COLD WATER MACHINE OPERATOR CBC WITH AUTO DIFFERENTIAL Routine Gen Lab 02/14/2024 4:45 AM COLD WATER MACHINE OPERATOR CBC WITHOUT DIFFERENTIAL Routine Gen Lab 02/14/2024 4:45 AM COLD WATER MACHINE OPERATOR ABSCESS CATHETER INJECTION Schedule Routine, Read Routine (OP Routine) 02/11/2024 11:15 AM COLD WATER MACHINE OPERATOR Abscess EGFR Routine Gen Lab 02/10/2024 6:41 AM COLD WATER MACHINE OPERATOR COMPREHENSIVE METABOLIC PANEL WITHOUT GLUCOSE (OUTREACH) Routine Gen Lab 02/10/2024 6:41 AM COLD WATER MACHINE OPERATOR CS GLUCOSE Routine Gen Lab 02/10/2024 6:41 AM COLD WATER MACHINE OPERATOR DIFFERENTIAL AUTO Routine Gen Lab 02/10/2024 6:4 1 AM COLD WATER MACHINE OPERATOR CBC WITH AUTO DIFFERENTIAL Routine Gen Lab 02/10/2024 6:41 AM COLD WATER MACHINE OPERATOR CS GLUCOSE Routine Gen Lab 02/07/2024 5:00 AM COLD WATER MACHINE OPERATOR EGFR Routine Gen Lab 02/07/2024 5:00 AM COLD WATER MACHINE OPERATOR COMPREHENSIVE METABOLIC PANEL WITHOUT GLUCOSE (OUTREACH) Routine Gen Lab 02/07/2024 5:00 AM COLD WATER MACHINE OPERATOR DIFFERENTIAL AUTO Routine Gen Lab 02/07/2024 5:0 0 AM COLD WATER MACHINE OPERATOR CBC WITH AUTO DIFFERENTIAL Routine Gen Lab 02/07/2024 5:00 AM COLD WATER MACHINE OPERATOR CBC WITHOUT DIFFERENTIAL Routine Gen Lab 02/07/2024 5:00 AM COLD WATER MACHINE OPERATOR TRANSFUSE RED BLOOD CELLS Timed from Last 3 Months Results * Differential, auto (04/18/2024 8:00 AM COLD WATER MACHINE OPERATOR) Pathologist [facility] [place] Neutrophil abs 3.6 1.5 - 6.5 K/cumm Imm gran abs 0.0 0.0 - 0.1 K/cumm [facility] Lymphocyte abs 1.5 0.8 - 3.3 K/cumm [facility] Monocyte abs 0.6 0.2 - 0.8 K/cumm [facility] Eosinophil abs 0.2 0.0 - 0.5 [facility] Basophil abs 0.0 0.0 - 0.1 [facility] Neutrophil pct 61.3 % [facility] Comment: Interpretive Data Percent cell count reference ranges are not reported, since discordance with absolute values may lead to misinterpretation of CBC data. Current Interpretive Data was last revised on 2017. Imm gran pct 0.7 % [facility] Comment: Interpretive Data Percent cell count reference ranges are not reported, since discordance with absolute values may lead to misinterpretation of CBC data. Current Interpretive Data was last revised on 2017. Lymphocyte pct 24.7 % [facility] Comment: Interpretive Data Percent cell count reference ranges are not reported, since discordance with absolute values may lead to misinterpretation of CBC data. Current Interpretive Data was last revised on 2017. Monocyte pct 9.6 % [facility] Comment: Interpretive Data Percent cell count reference ranges are not reported, since discordance with absolute values may lead to misinterpretation of CBC data. Current Interpretive Data was last revised on 2017. Eosinophil pct 3.2 % [facility] Comment: Interpretive Data Percent cell count reference ranges are not reported, since discordance with absolute values may lead to misinterpretation of CBC data. Current Interpretive Data was last revised on 2017. Basophil pct 0.5 % [facility] Comment: Interpretive Data Percent cell count reference ranges are not reported, since discordance with absolute values may lead to misinterpretation of CBC data. Current Interpretive Data was last revised on 2017. Blood 04/18/2024 8:00 AM COLD WATER MACHINE OPERATOR 04/18/2024 10:41 AM COLD WATER MACHINE OPERATOR us Donnie Erazo MD LAB BLOOD ORDERABLES Final Resul t [facility] [place] [address] * (ABNORMAL) CBC with auto differential (04/18/2024 8:00 AM COLD WATER MACHINE OPERATOR) WBC 5.9 3.8 - 9.9 K/cumm Hgb 7.8(L) 11.9 - 15.5 g/dL [facility] Hct 24.7(L) 35.6 - 45.5 % [facility] Plt 135(L) 150 - 400 K/cumm [facility] MPV 11.0 9.1 - 12.3 fL [facility] RBC 2.68(L) 3.90 - 5.20 M/cumm [facility] MCV 92.2 81.3 - 96.4 fL [facility] MCH 29.1 27.1 - 33.3 pg [facility] MCHC 31.6(L) 32.3 - 35.7 g/dL [facility] RDW CV 19.3(H) 11.1 - 14.9 % [facility] RDW SD 63.2(H) 35.7 - 48.1 fL [facility] NRBC abs 0.02(H) 0.00 - 0.01 K/cumm [facility] Blood 04/18/2024 8:00 AM COLD WATER MACHINE OPERATOR 04/18/2024 10:41 AM COLD WATER MACHINE OPERATOR Donnie Erazo MD LAB BLOOD ORDERABLES Final Resul t Performing Organization Address [facility] de Phone Number [facility] [place] [address] * eGFR (04/17/2024 4:58 AM COLD WATER MACHINE OPERATOR) eGFR 76 >=60 mL/min/1. 73 m2 Comment: [...] last reviewed 2020. Blood 04/17/2024 4:58 AM COLD WATER MACHINE OPERATOR 04/17/2024 5:31 AM COLD WATER MACHINE OPERATOR Donnie Erazo MD LAB BLOOD ORDERABLES Final Resul t Performing Organization Address [facility] Co de Phone Number [facility] [place], [place] [address] * Differential, auto (04/17/2024 4:58 AM COLD WATER MACHINE OPERATOR) Neutrophil abs 2.7 1.5 - 6.5 K/cumm Imm gran abs 0.0 0.0 - 0.1 K/cumm [facility] Lymphocyte abs 1.3 0.8 - 3.3 K/cumm [facility] Monocyte abs 0.6 0.2 - 0.8 K/cumm [facility] Eosinophil abs 0.2 0.0 - 0.5 K/cumm [facility] Basophil abs 0.0 0.0 - 0.1 K/cumm [facility] Neutrophil pct 56.1 % [facility] Comment: Interpretive Data Percent cell count reference ranges are not reported, since discordance with absolute values may lead to misinterpretation of CBC data. Current Interpretive Data was last revised on 2017. Imm gran pct 0.8 % [facility] Comment: Interpretive Data Percent cell count reference ranges are not reported, since discordance with absolute values may lead to misinterpretation of CBC data. Current Interpretive Data was last revised on 2017. Lymphocyte pct 27.4 % [facility] Comment: Interpretive Data Percent cell count reference ranges are not reported, since discordance with absolute values may lead to misinterpretation of CBC data. Current Interpretive Data was last revised on 2017. Monocyte pct 11.7 % [facility] Comment: Interpretive Data Percent cell count reference ranges are not reported, since discordance with absolute values may lead to misinterpretation of CBC data. Current Interpretive Data was last revised on 2017. Eosinophil pct 3.6 % [facility] Comment: Interpretive Data Percent cell count reference ranges are not reported, since discordance with absolute values may lead to misinterpretation of CBC data. Current Interpretive Data was last revised on 2017. Basophil pct 0.4 % [facility] Comment: Interpretive Data Percent cell count reference ranges are not reported, since discordance with absolute values may lead to misinterpretation of CBC data. Current Interpretive Data was last revised on 2017. Blood 04/17/2024 4:58 AM COLD WATER MACHINE OPERATOR 04/17/2024 5:25 AM COLD WATER MACHINE OPERATOR us Donnie Erazo MD LAB BLOOD ORDERABLES Final Resul t [facility] [place] [address] * (ABNORMAL) CBC with auto differential (04/17/2024 4:58 AM COLD WATER MACHINE OPERATOR) [facility] WBC 4.8 3.8 - 9.9 K/cumm Hgb 6.9(L) 11.9 - 15.5 g/dL [facility] Hct 21.7(L) 35.6 - 45.5 % [facility] Plt 119(L) 150 - 400 K/cumm [facility] MPV 11.1 9.1 - 12.3 fL [facility] RBC 2.33(L) 3.90 - 5.20 M/cumm [facility] MCV 93.1 81.3 - 96.4 fL [facility] MCH 29.6 27.1 - 33.3 pg [facility] MCHC 31.8(L) 32.3 - 35.7 g/dL [facility] RDW CV 20.1(H) 11.1 - 14.9 % [facility] RDW SD 67.1(H) 35.7 - 48.1 fL [facility] NRBC abs 0.00 0.00 - 0.01 K/cumm [facility] Blood 04/17/2024 4:58 AM COLD WATER MACHINE OPERATOR 04/17/2024 5:25 AM COLD WATER MACHINE OPERATOR Donnie Erazo MD LAB BLOOD ORDERABLES Final Resul t [facility] [place] [address] * (ABNORMAL) Comprehensive metabolic panel (04/17/2024 4:58 AM COLD WATER MACHINE OPERATOR) [facility] Sodium 141 135 - 145 mmol/L Potassium, pl 3.9 3.3 - 4.9 mmol/L [facility] Chloride 116(H) 97 - 110 mmol/L [facility] CO2 21(L) 22 - 32 mmol/L [facility] Anion gap 4 2 - 15 mmol/L [facility] BUN 16 6 - 25 mg/dL [facility] Creatinine 0.78 0.60 - 1.10 mg/dL [facility] Glucose 115 70 - 199 mg/dL [facility] Comment: Interpretive Data Fasting glucose >/= 126 [...] 2022. Calcium 9.9 8.5 - 10.3 mg/dL [facility] Bilirubin, total 0.2 0.1 - 1.2 mg/dL [facility] Protein, pl 7.1 6.5 - 8.5 g/dL [facility] Albumin 2.0(L) 3.5 - 5.0 g/dL [facility] Alk phos 286(H) 40 - 130 Units/L [facility] ALT 157(H) 7 - 45 Units/L [facility] AST 173(H) 10 - 45 Units/L [facility] Blood 04/17/2024 4:58 AM COLD WATER MACHINE OPERATOR 04/17/2024 5:25 AM COLD WATER MACHINE OPERATOR us Donnie Erazo MD LAB BLOOD ORDERABLES Final Resul t [facility] [place] [address] * eGFR (04/13/2024 4:00 AM COLD WATER MACHINE OPERATOR) eGFR 62 >=60 mL/min/1. 73 m2 Comment: [...] last reviewed 2020. Blood 04/13/2024 4:00 AM COLD WATER MACHINE OPERATOR 04/13/2024 5:48 AM COLD WATER MACHINE OPERATOR us Donnie Erazo MD LAB BLOOD ORDERABLES Final Resul t [facility] [place] [address] * Differential, auto (04/13/2024 4:00 AM COLD WATER MACHINE OPERATOR) Neutrophil abs 4.2 1.5 - 6.5 K/cumm Imm gran abs 0.0 0.0 - 0.1 K/cumm [facility] Lymphocyte abs 1.2 0.8 - 3.3 [facility] Monocyte abs 0.6 0.2 - 0.8 K/cumm [facility] Eosinophil abs 0.2 0.0 - 0.5 K/cumm [facility] Basophil abs 0.0 0.0 - 0.1 K/cumm [facility] Neutrophil pct 67.9 % [facility] Comment: Interpretive Data Percent cell count reference ranges are not reported, since discordance with absolute values may lead to misinterpretation of CBC data. Current Interpretive Data was last revised on 2017. Imm gran pct 0.7 % [facility] Comment: Interpretive Data Percent cell count reference ranges are not reported, since discordance with absolute values may lead to misinterpretation of CBC data. Current Interpretive Data was last revised on 2017. Lymphocyte pct 19.1 % [facility] Comment: Interpretive Data Percent cell count reference ranges are not reported, since discordance with absolute values may lead to misinterpretation of CBC data. Current Interpretive Data was last revised on 2017. Monocyte pct 9.5 % [facility] Comment: Interpretive Data Percent cell count reference ranges are not reported, since discordance with absolute values may lead to misinterpretation of CBC data. Current Interpretive Data was last revised on 2017. Eosinophil pct 2.6 % [facility] Comment: Interpretive Data Percent cell count reference ranges are not reported, since discordance with absolute values may lead to misinterpretation of CBC data. Current Interpretive Data was last revised on 2017. Basophil pct 0.2 % [facility] Comment: Interpretive Data Percent cell count reference ranges are not reported, since discordance with absolute values may lead to misinterpretation of CBC data. Current Interpretive Data was last revised on 2017. Blood 04/13/2024 4:00 AM COLD WATER MACHINE OPERATOR 04/13/2024 5:38 AM COLD WATER MACHINE OPERATOR us Donnie Erazo MD LAB BLOOD ORDERABLES Final Resul t [facility] [place] [address] * (ABNORMAL) CBC with auto differential (04/13/2024 4:00 AM COLD WATER MACHINE OPERATOR) WBC 6.1 3.8 - 9.9 K/cumm Hgb 7.1(L) 11.9 - 15.5 g/dL [facility] Hct 22.8(L) 35.6 - 45.5 % [facility] Plt 111(L) 150 - 400 K/cumm [facility] MPV 10.8 9.1 - 12.3 fL [facility] RBC 2.47(L) 3.90 - 5.20 M/cumm [facility] MCV 92.3 81.3 - 96.4 fL [facility] MCH 28.7 27.1 - 33.3 pg [facility] MCHC 31.1(L) 32.3 - 35.7 g/dL [facility] RDW CV 19.9(H) 11.1 - 14.9 % [facility] RDW SD 67.1(H) 35.7 - 48.1 fL [facility] NRBC abs 0.00 0.00 - 0.01 K/cumm [facility] Blood 04/13/2024 4:00 AM COLD WATER MACHINE OPERATOR 04/13/2024 5:38 AM COLD WATER MACHINE OPERATOR us Donnie Erazo MD LAB BLOOD ORDERABLES Final Resul t Performing Organization Address [facility] de Phone Number [facility] [place] [address] * Phosphorus (04/13/2024 4:00 AM COLD WATER MACHINE OPERATOR) Pathologist [facility] Phosphorus, pl 2.3 2.3 - 4.5 mg/dL Blood 04/13/2024 4:00 AM COLD WATER MACHINE OPERATOR 04/13/2024 5:38 AM COLD WATER MACHINE OPERATOR us Donnie Erazo MD LAB BLOOD ORDERABLES Final Resul t Performing Organization Address [facility] de Phone Number [facility] [place] [address] * Magnesium (04/13/2024 4:00 AM COLD WATER MACHINE OPERATOR) [facility] Magnesium 1.4 1.4 - 2.5 mg/dL Blood 04/13/2024 4:00 AM COLD WATER MACHINE OPERATOR 04/13/2024 5:38 AM COLD WATER MACHINE OPERATOR Result Bing Erazo MD LAB BLOOD ORDERABLES Final Resul t Performing Organization Address [facility] [place] [address] * (ABNORMAL) Comprehensive metabolic panel (04/13/2024 4:00 AM COLD WATER MACHINE OPERATOR) [facility] Sodium 142 135 - 145 mmol/L Potassium, pl 3.8 3.3 - 4.9 mmol/L [facility] Chloride 118(H) 97 - 110 mmol/L [facility] CO2 20(L) 22 - 32 mmol/L [facility] Anion gap 4 2 - 15 mmol/L [facility] BUN 9 6 - 25 mg/dL [facility] Creatinine 0.93 0.60 - 1.10 mg/dL [facility] Glucose 112 70 - 199 mg/dL [facility] Comment: Interpretive Data Fasting glucose >/= 126 [...] 2022. Calcium 9.4 8.5 - 10.3 mg/dL [facility] Bilirubin, total 0.2 0.1 - 1.2 mg/dL [facility] Protein, pl 6.6 6.5 - 8.5 g/dL [facility] Albumin 2.3(L) 3.5 - 5.0 g/dL [facility] Alk phos 222(H) 40 - 130 Units/L [facility] ALT 38 7 - 45 Units/L [facility] AST 47(H) 10 - 45 Units/L [facility] Blood 04/13/2024 4:00 AM COLD WATER MACHINE OPERATOR 04/13/2024 5:38 AM COLD WATER MACHINE OPERATOR us Donnie Erazo MD LAB BLOOD ORDERABLES Final Resul t [facility] [place] [address] * (ABNORMAL) eGFR (04/12/2024 4:00 AM COLD WATER MACHINE OPERATOR) eGFR 53(L) >=60 mL/min/1. 73 m2 Comment: [...] last reviewed 2020. Blood 04/12/2024 4:00 AM COLD WATER MACHINE OPERATOR 04/12/2024 4:41 AM COLD WATER MACHINE OPERATOR us Donnie Erazo MD LAB BLOOD ORDERABLES Final Resul t Performing Organization Address City/[facility] Co de Phone Number [facility] [place] [address] * Phosphorus (04/12/2024 4:00 AM COLD WATER MACHINE OPERATOR) Phosphorus, pl 2.4 2.3 - 4.5 mg/dL Blood 04/12/2024 4:00 AM COLD WATER MACHINE OPERATOR 04/12/2024 4:41 AM COLD WATER MACHINE OPERATOR us Donnie Erazo MD LAB BLOOD ORDERABLES Final Resul t Performing Organization Address City/[facility] Co de Phone Number [facility] [place] [address] * Magnesium (04/12/2024 4:00 AM COLD WATER MACHINE OPERATOR) Magnesium 1.7 1.4 - 2.5 mg/dL Blood 04/12/2024 4:00 AM COLD WATER MACHINE OPERATOR 04/12/2024 4:41 AM COLD WATER MACHINE OPERATOR us Donnie Erazo MD LAB BLOOD ORDERABLES Final Resul t Performing Organization Address City/[facility] Co de Phone Number [facility] [place] [address] * (ABNORMAL) Basic metabolic panel (04/12/2024 4:00 AM COLD WATER MACHINE OPERATOR) Pathologist [facility] Sodium 137 135 - 145 mmol/L Potassium, pl 3.7 3.3 - 4.9 mmol/L [facility] Chloride 114(H) 97 - 110 mmol/L [facility] CO2 20(L) 22 - 32 mmol/L [facility] Anion gap 3 2 - 15 mmol/L [facility] BUN 9 6 - 25 mg/dL [facility] Creatinine 1.06 0.60 - 1.10 mg/dL [facility] Glucose 130 70 - 199 mg/dL [facility] Comment: Interpretive Data Fasting glucose >/= 126 [...] 2022. Calcium 9.8 8.5 - 10.3 mg/dL [facility] Blood 04/12/2024 4:00 AM COLD WATER MACHINE OPERATOR 04/12/2024 4:41 AM COLD WATER MACHINE OPERATOR Donnie Erazo MD LAB BLOOD ORDERABLES Final Resul t [facility] [place] [address] * (ABNORMAL) eGFR (04/11/2024 4:00 AM COLD WATER MACHINE OPERATOR) Pathologist [facility] eGFR 51(L) >=60 mL/min/1. 73 m2 Comment: [...] last reviewed 2020. Blood 04/11/2024 4:00 AM COLD WATER MACHINE OPERATOR 04/11/2024 5:23 AM COLD WATER MACHINE OPERATOR us Donnie Erazo MD LAB BLOOD ORDERABLES Final Resul t Performing Organization Address [facility] de Phone Number [facility] [place] [address] * Phosphorus (04/11/2024 4:00 AM COLD WATER MACHINE OPERATOR) Phosphorus, pl 2.5 2.3 - 4.5 mg/dL Blood 04/11/2024 4:00 AM COLD WATER MACHINE OPERATOR 04/11/2024 5:03 AM COLD WATER MACHINE OPERATOR us Donnie Erazo MD LAB BLOOD ORDERABLES Final Resul t Performing Organization Address City/[facility] Co de Phone Number [facility] [place] [address] * Magnesium (04/11/2024 4:00 AM COLD WATER MACHINE OPERATOR) Magnesium 1.6 1.4 - 2.5 mg/dL Blood 04/11/2024 4:00 AM COLD WATER MACHINE OPERATOR 04/11/2024 5:03 AM COLD WATER MACHINE OPERATOR us Donnie Erazo MD LAB BLOOD ORDERABLES Final Resul t Performing Organization Address City/[facility] Co de Phone Number [facility] [place] [address] * (ABNORMAL) Basic metabolic panel (04/11/2024 4:00 AM COLD WATER MACHINE OPERATOR) Pathologist [facility] Sodium 140 135 - 145 mmol/L Potassium, pl 4.3 3.3 - 4.9 mmol/L [facility] Chloride 113(H) 97 - 110 mmol/L [facility] CO2 21(L) 22 - 32 mmol/L [facility] Anion gap 6 2 - 15 mmol/L [facility] BUN 9 6 - 25 mg/dL [facility] Creatinine 1.09 0.60 - 1.10 mg/dL [facility] Glucose 127 70 - 199 mg/dL [facility] Comment: Interpretive Data Fasting glucose >/= 126 [...] 2022. Calcium 10.0 8.5 - 10.3 mg/dL [facility] Blood 04/11/2024 4:00 AM COLD WATER MACHINE OPERATOR 04/11/2024 5:03 AM COLD WATER MACHINE OPERATOR Donnie Erazo MD LAB BLOOD ORDERABLES Final Resul t [facility] [place] [address] * (ABNORMAL) eGFR (04/10/2024 4:15 AM COLD WATER MACHINE OPERATOR) Pathologist [facility] eGFR 49(L) >=60 mL/min/1. 73 m2 Comment: [...] last reviewed 2020. Blood 04/10/2024 4:15 AM COLD WATER MACHINE OPERATOR 04/10/2024 5:57 AM COLD WATER MACHINE OPERATOR us Notinfile Unknown LAB BLOOD ORDERABLES Final Res ult [facility] [place] [address] * Differential, auto (04/10/2024 4:15 AM COLD WATER MACHINE OPERATOR) Neutrophil abs 2.7 1.5 - 6.5 K/cumm Imm gran abs 0.0 0.0 - 0.1 K/cumm [facility] Lymphocyte abs 1.2 0.8 - 3.3 K/cumm [facility] Monocyte abs 0.6 0.2 - 0.8 K/cumm [facility] Eosinophil abs 0.2 0.0 - 0.5 K/cumm [facility] Basophil abs 0.0 0.0 - 0.1 K/cumm [facility] Neutrophil pct 58.0 % [facility] Comment: Interpretive Data Percent cell count reference ranges are not reported, since discordance with absolute values may lead to misinterpretation of CBC data. Current Interpretive Data was last revised on 2017. Imm gran pct 0.4 % [facility] Comment: Interpretive Data Percent cell count reference ranges are not reported, since discordance with absolute values may lead to misinterpretation of CBC data. Current Interpretive Data was last revised on 2017. Lymphocyte pct 24.6 % [facility] Comment: Interpretive Data Percent cell count reference ranges are not reported, since discordance with absolute values may lead to misinterpretation of CBC data. Current Interpretive Data was last revised on 2017. Monocyte pct 12.8 % [facility] Comment: Interpretive Data Percent cell count reference ranges are not reported, since discordance with absolute values may lead to misinterpretation of CBC data. Current Interpretive Data was last revised on 2017. Eosinophil pct 3.8 % [facility] Comment: Interpretive Data Percent cell count reference ranges are not reported, since discordance with absolute values may lead to misinterpretation of CBC data. Current Interpretive Data was last revised on 2017. Basophil pct 0.4 % [facility] Comment: Interpretive Data Percent cell count reference ranges are not reported, since discordance with absolute values may lead to misinterpretation of CBC data. Current Interpretive Data was last revised on 2017. Blood 04/10/2024 4:15 AM COLD WATER MACHINE OPERATOR 04/10/2024 5:48 AM COLD WATER MACHINE OPERATOR us Notinfile Unknown LAB BLOOD ORDERABLES Final Res ult [facility] [place] [address] * (ABNORMAL) CBC with auto differential (04/10/2024 4:15 AM COLD WATER MACHINE OPERATOR) WBC 4.7 3.8 - 9.9 K/cumm Hgb 7.1(L) 11.9 - 15.5 g/dL [facility] Hct 22.8(L) 35.6 - 45.5 % [facility] Plt 101(L) 150 - 400 K/cumm [facility] MPV 11.0 9.1 - 12.3 fL [facility] RBC 2.44(L) 3.90 - 5.20 M/cumm [facility] MCV 93.4 81.3 - 96.4 fL [facility] MCH 29.1 27.1 - 33.3 pg [facility] MCHC 31.1(L) 32.3 - 35.7 g/dL [facility] RDW CV 21.2(H) 11.1 - 14.9 % [facility] RDW SD 72.3(H) 35.7 - 48.1 fL [facility] NRBC abs 0.00 0.00 - 0.01 K/cumm [facility] Blood 04/10/2024 4:15 AM COLD WATER MACHINE OPERATOR 04/10/2024 5:48 AM COLD WATER MACHINE OPERATOR us Notinfile Unknown LAB BLOOD ORDERABLES Final Res ult Performing Organization Address City/[facility] Co de Phone Number [facility] [place] [address] * (ABNORMAL) Phosphorus (04/10/2024 4:15 AM COLD WATER MACHINE OPERATOR) Phosphorus, pl 2.0(L) 2.3 - 4.5 mg/dL Blood 04/10/2024 4:15 AM COLD WATER MACHINE OPERATOR 04/10/2024 5:48 AM COLD WATER MACHINE OPERATOR us Notinfile Unknown LAB BLOOD ORDERABLES Final Res ult Performing Organization Address [facility] Co de Phone Number [facility] [place] [address] * Magnesium (04/10/2024 4:15 AM COLD WATER MACHINE OPERATOR) Magnesium 1.6 1.4 - 2.5 mg/dL Blood 04/10/2024 4:15 AM COLD WATER MACHINE OPERATOR 04/10/2024 5:48 AM COLD WATER MACHINE OPERATOR us Notinfile Unknown LAB BLOOD ORDERABLES Final Res ult Performing Organization Address City/[facility] Co de Phone Number [facility] [place] [address] * (ABNORMAL) Comprehensive metabolic panel (04/10/2024 4:15 AM COLD WATER MACHINE OPERATOR) Sodium 141 135 - 145 mmol/L Potassium, pl 5.2(H) 3.3 - 4.9 mmol/L [facility] Chloride 114(H) 97 - 110 mmol/L [facility] CO2 22 22 - 32 mmol/L [facility] Anion gap 5 2 - 15 mmol/L [facility] BUN 8 6 - 25 mg/dL [facility] Creatinine 1.12(H) 0.60 - 1.10 mg/dL [facility] Glucose 89 70 - 199 mg/dL [facility] Comment: Interpretive Data Fasting glucose >/= 126 [...] 2022. Calcium 10.1 8.5 - 10.3 mg/dL [facility] Bilirubin, total 0.2 0.1 - 1.2 mg/dL [facility] Protein, pl 6.4(L) 6.5 - 8.5 g/dL [facility] Albumin 2.1(L) 3.5 - 5.0 g/dL [facility] Alk phos 239(H) 40 - 130 Units/L [facility] ALT 27 7 - 45 Units/L [facility] AST 18 10 - 45 Units/L [facility] Blood 04/10/2024 4:15 AM COLD WATER MACHINE OPERATOR 04/10/2024 5:48 AM COLD WATER MACHINE OPERATOR us Notinfile Unknown LAB BLOOD ORDERABLES Final Res ult [facility] [place] [address] * (ABNORMAL) eGFR (04/09/2024 4:30 AM COLD WATER MACHINE OPERATOR) eGFR 52(L) >=60 mL/min/1. 73 m2 Comment: [...] last reviewed 2020. Blood 04/09/2024 4:30 AM COLD WATER MACHINE OPERATOR 04/09/2024 7:40 AM COLD WATER MACHINE OPERATOR us Notinfile Unknown LAB BLOOD ORDERABLES Final Res ult Performing Organization Address City/[facility]/ZIP Co de Phone Number [facility] [place] [address] * (ABNORMAL) Phosphorus (04/09/2024 4:30 AM COLD WATER MACHINE OPERATOR) Pathologist [facility] Phosphorus, pl 2.1(L) 2.3 - 4.5 mg/dL Blood 04/09/2024 4:30 AM COLD WATER MACHINE OPERATOR 04/09/2024 6:45 AM COLD WATER MACHINE OPERATOR us Notinfile Unknown LAB BLOOD ORDERABLES Final Res ult Performing Organization Address City/[facility] Co de Phone Number [facility] [place] [address] * Magnesium (04/09/2024 4:30 AM COLD WATER MACHINE OPERATOR) Magnesium 1.9 1.4 - 2.5 mg/dL Comment:Reviewed Blood 04/09/2024 4:30 AM COLD WATER MACHINE OPERATOR 04/09/2024 6:45 AM COLD WATER MACHINE OPERATOR us Notinfile Unknown LAB BLOOD ORDERABLES Final Res ult [facility] [facility] [place] [address] * (ABNORMAL) Comprehensive metabolic panel (04/09/2024 4:30 AM COLD WATER MACHINE OPERATOR) Sodium 142 135 - 145 mmol/L Potassium, pl 4.4 3.3 - 4.9 mmol/L [facility] Chloride 116(H) 97 - 110 mmol/L [facility] CO2 22 22 - 32 mmol/L [facility] Anion gap 4 2 - 15 mmol/L [facility] BUN 8 6 - 25 mg/dL [facility] Creatinine 1.07 0.60 - 1.10 mg/dL [facility] Glucose 111 70 - 199 mg/dL [facility] Comment: Interpretive Data Fasting glucose >/= 126 [...] 2022. Calcium 10.8(H) 8.5 - 10.3 mg/dL [facility] Bilirubin, total 0.3 0.1 - 1.2 mg/dL [facility] Protein, pl 6.8 6.5 - 8.5 g/dL [facility] Albumin 2.2(L) 3.5 - 5.0 g/dL [facility] Alk phos 274(H) 40 - 130 Units/L [facility] ALT 37 7 - 45 Units/L [facility] AST 20 10 - 45 Units/L [facility] Blood 04/09/2024 4:30 AM COLD WATER MACHINE OPERATOR 04/09/2024 6:45 AM COLD WATER MACHINE OPERATOR us Notinfile Unknown LAB BLOOD ORDERABLES Final Res ult Performing Organization Address City/[facility]/ZIP Co de Phone Number [facility] [place] [address] * eGFR (04/08/2024 4:30 AM COLD WATER MACHINE OPERATOR) eGFR 63 >=60 mL/min/1. 73 m2 Comment: [...] last reviewed 2020. Blood 04/08/2024 4:30 AM COLD WATER MACHINE OPERATOR 04/08/2024 6:08 AM COLD WATER MACHINE OPERATOR us Mono Kirkpatrick MD LAB BLOOD ORDERABLES Final R esult Performing Organization Address City/[facility]/ZIP Co de Phone Number [facility] [place] [address] * Critical Result Callback Chemistry (04/08/2024 4:30 AM COLD WATER MACHINE OPERATOR) Date Notified [id number] Time Notified 634 [facility] TestName Magnesium [facility] Called/Read Back Cora MOREJON [facility] Credentials RN JEAN-PIERRE [facility] Called By geneva MOREJON [facility] Blood 04/08/2024 4:30 AM COLD WATER MACHINE OPERATOR 04/08/2024 6:08 AM COLD WATER MACHINE OPERATOR Mono Kirkpatrick MD LAB BLOOD ORDERABLES Final R esult Performing Organization Address City/[facility]/ZIP Co de Phone Number [facility] [place] [address] * (ABNORMAL) Phosphorus (04/08/2024 4:30 AM COLD WATER MACHINE OPERATOR) Pathologist [facility] Phosphorus, pl 2.0(L) 2.3 - 4.5 mg/dL Blood 04/08/2024 4:30 AM COLD WATER MACHINE OPERATOR 04/08/2024 6:04 AM COLD WATER MACHINE OPERATOR Mono Kirkpatrick MD LAB BLOOD ORDERABLES Final R esult Performing Organization Address [facility] [place] [address] * (ABNORMAL) Magnesium (04/08/2024 4:30 AM COLD WATER MACHINE OPERATOR) Magnesium 0.9(C) 1.4 - 2.5 mg/dL Comment:Reviewed Blood 04/08/2024 4:30 AM COLD WATER MACHINE OPERATOR 04/08/2024 6:04 AM COLD WATER MACHINE OPERATOR Mono Kirkpatrick MD LAB BLOOD ORDERABLES Final R esult Performing Organization Address City/[facility] Co de Phone Number [facility] [place], [place] [id number] * (ABNORMAL) Comprehensive metabolic panel (04/08/2024 4:30 AM COLD WATER MACHINE OPERATOR) Sodium 143 135 - 145 mmol/L Potassium, pl 4.4 3.3 - 4.9 mmol/L [facility] Chloride 118(H) 97 - 110 mmol/L [facility] CO2 20(L) 22 - 32 mmol/L [facility] Anion gap 5 2 - 15 mmol/L [facility] BUN 8 6 - 25 mg/dL [facility] Creatinine 0.92 0.60 - 1.10 mg/dL [facility] Glucose 110 70 - 199 mg/dL [facility] Comment: Interpretive Data Fasting glucose >/= 126 [...] 2022. Calcium 11.1(H) 8.5 - 10.3 mg/dL [facility] Bilirubin, total 0.4 0.1 - 1.2 mg/dL [facility] Protein, pl 7.1 6.5 - 8.5 g/dL [facility] Albumin 2.3(L) 3.5 - 5.0 g/dL [facility] Alk phos 322(H) 40 - 130 Units/L [facility] ALT 44 7 - 45 Units/L [facility] AST 29 10 - 45 Units/L [facility] Blood 04/08/2024 4:30 AM COLD WATER MACHINE OPERATOR 04/08/2024 6:04 AM COLD WATER MACHINE OPERATOR us Mono Kirkpatrick MD LAB BLOOD ORDERABLES Final R esult [facility] [place] [address] * eGFR (04/06/2024 4:00 AM COLD WATER MACHINE OPERATOR) eGFR 60 >=60 mL/min/1. 73 m2 Comment: [...] last reviewed 2020. Blood 04/06/2024 4:00 AM COLD WATER MACHINE OPERATOR 04/06/2024 6:04 AM COLD WATER MACHINE OPERATOR Donnie Erazo MD LAB BLOOD ORDERABLES Final Resul t [facility] [place] [address] * Differential, auto (04/06/2024 4:00 AM COLD WATER MACHINE OPERATOR) Neutrophil abs 2.1 1.5 - 6.5 K/cumm Imm gran abs 0.0 0.0 - 0.1 K/cumm [facility] Lymphocyte abs 1.4 0.8 - 3.3 K/cumm [facility] Monocyte abs 0.5 0.2 - 0.8 K/cumm [facility] Eosinophil abs 0.2 0.0 - 0.5 K/cumm [facility] Basophil abs 0.0 0.0 - 0.1 K/cumm [facility] Neutrophil pct 48.8 % [facility] Comment: Interpretive Data Percent cell count reference ranges are not reported, since discordance with absolute values may lead to misinterpretation of CBC data. Current Interpretive Data was last revised on 2017. Imm gran pct 0.5 % [facility] Comment: Interpretive Data Percent cell count reference ranges are not reported, since discordance with absolute values may lead to misinterpretation of CBC data. Current Interpretive Data was last revised on 2017. Lymphocyte pct 33.3 % [facility] Comment: Interpretive Data Percent cell count reference ranges are not reported, since discordance with absolute values may lead to misinterpretation of CBC data. Current Interpretive Data was last revised on 2017. Monocyte pct 12.0 % [facility] Comment: Interpretive Data Percent cell count reference ranges are not reported, since discordance with absolute values may lead to misinterpretation of CBC data. Current Interpretive Data was last revised on 2017. Eosinophil pct 4.9 % [facility] Comment: Interpretive Data Percent cell count reference ranges are not reported, since discordance with absolute values may lead to misinterpretation of CBC data. Current Interpretive Data was last revised on 2017. Basophil pct 0.5 % [facility] Comment: Interpretive Data Percent cell count reference ranges are not reported, since discordance with absolute values may lead to misinterpretation of CBC data. Current Interpretive Data was last revised on 2017. Blood 04/06/2024 4:00 AM COLD WATER MACHINE OPERATOR 04/06/2024 5:46 AM COLD WATER MACHINE OPERATOR us Donnie Erazo MD LAB BLOOD ORDERABLES Final Resul t [facility] [place] [address] * (ABNORMAL) CBC with auto differential (04/06/2024 4:00 AM COLD WATER MACHINE OPERATOR) WBC 4.3 3.8 - 9.9 K/cumm Hgb 7.3(L) 11.9 - 15.5 g/dL [facility] Hct 23.8(L) 35.6 - 45.5 % [facility] Plt 101(L) 150 - 400 K/cumm [facility] MPV 10.7 9.1 - 12.3 fL [facility] RBC 2.55(L) 3.90 - 5.20 M/cumm [facility] MCV 93.3 81.3 - 96.4 fL [facility] MCH 28.6 27.1 - 33.3 pg [facility] MCHC 30.7(L) 32.3 - 35.7 g/dL [facility] RDW CV 21.9(H) 11.1 - 14.9 % [facility] RDW SD 73.9(H) 35.7 - 48.1 fL [facility] NRBC abs 0.02(H) 0.00 - 0.01 K/cumm [facility] Blood 04/06/2024 4:00 AM COLD WATER MACHINE OPERATOR 04/06/2024 5:46 AM COLD WATER MACHINE OPERATOR us Donnie Erazo MD LAB BLOOD ORDERABLES Final Resul t [facility] [place] [address] * (ABNORMAL) Comprehensive metabolic panel (04/06/2024 4:00 AM COLD WATER MACHINE OPERATOR) Sodium 144 135 - 145 mmol/L Potassium, pl 4.3 3.3 - 4.9 mmol/L [facility] Chloride 119(H) 97 - 110 mmol/L [facility] CO2 19(L) 22 - 32 mmol/L [facility] Anion gap 4 2 - 15 mmol/L [facility] BUN 7 6 - 25 mg/dL [facility] Creatinine 0.95 0.60 - 1.10 mg/dL [facility] Glucose 111 70 - 199 mg/dL [facility] Comment: Interpretive Data Fasting glucose >/= 126 [...] 2022. Calcium 10.4(H) 8.5 - 10.3 mg/dL [facility] Bilirubin, total 0.2 0.1 - 1.2 mg/[facility] Protein, pl 6.1(L) 6.5 - 8.5 g/dL [facility] Albumin 2.0(L) 3.5 - 5.0 g/dL [facility] Alk phos 304(H) 40 - 130 Units/L [facility] ALT 54(H) 7 - 45 Units/L [facility] AST 26 10 - 45 Units/L [facility] Blood 04/06/2024 4:00 AM COLD WATER MACHINE OPERATOR 04/06/2024 5:46 AM COLD WATER MACHINE OPERATOR us Donnie Erazo MD LAB BLOOD ORDERABLES Final Resul t [facility] [place] [address] * eGFR (04/05/2024 4:00 AM COLD WATER MACHINE OPERATOR) eGFR 63 >=60 mL/min/1. 73 m2 Comment: [...] last reviewed 2020. Blood 04/05/2024 4:00 AM COLD WATER MACHINE OPERATOR 04/05/2024 5:07 AM COLD WATER MACHINE OPERATOR us Donnie Erazo MD LAB BLOOD ORDERABLES Final Resul t [facility] [place] [address] * (ABNORMAL) Basic metabolic panel (04/05/2024 4:00 AM COLD WATER MACHINE OPERATOR) Sodium 147(H) 135 - 145 mmol/L Potassium, pl 4.0 3.3 - 4.9 mmol/L [facility] Chloride 124(H) 97 - 110 mmol/L [facility] CO2 19(L) 22 - 32 mmol/L [facility] Anion gap 4 2 - 15 mmol/L [facility] BUN 7 6 - 25 mg/dL [facility] Creatinine 0.91 0.60 - 1.10 mg/dL [facility] Glucose 110 70 - 199 mg/dL [facility] Comment: Interpretive Data Fasting glucose >/= 126 [...] 2022. Calcium 10.4(H) 8.5 - 10.3 mg/dL [facility] Blood 04/05/2024 4:00 AM COLD WATER MACHINE OPERATOR 04/05/2024 5:07 AM COLD WATER MACHINE OPERATOR Donnie Erazo MD LAB BLOOD ORDERABLES Final Resul t [facility] [place] [address] * eGFR (04/04/2024 3:45 AM COLD WATER MACHINE OPERATOR) eGFR 63 >=60 mL/min/1. 73 m2 Comment: [...] last reviewed 2020. Blood 04/04/2024 3:45 AM COLD WATER MACHINE OPERATOR 04/04/2024 6:23 AM COLD WATER MACHINE OPERATOR us Donnie Erazo MD LAB BLOOD ORDERABLES Final Resul t [facility] [place] [address] * (ABNORMAL) Basic metabolic panel (04/04/2024 3:45 AM COLD WATER MACHINE OPERATOR) Sodium 145 135 - 145 mmol/L Potassium, pl 4.1 3.3 - 4.9 mmol/L [facility] Chloride 123(H) 97 - 110 mmol/L [facility] CO2 19(L) 22 - 32 mmol/L [facility] Anion gap 3 2 - 15 mmol/L [facility] BUN 7 6 - 25 mg/dL [facility] Creatinine 0.91 0.60 - 1.10 mg/dL [facility] Glucose 115 70 - 199 mg/dL [facility] Comment: Interpretive Data Fasting glucose >/= 126 [...] 2022. Calcium 10.2 8.5 - 10.3 mg/dL [facility] Blood 04/04/2024 3:45 AM COLD WATER MACHINE OPERATOR 04/04/2024 5:35 AM COLD WATER MACHINE OPERATOR Donnie Erazo MD LAB BLOOD ORDERABLES Final Resul t Performing Organization Address [facility] de Phone Number [facility] [place] [address] * eGFR (04/03/2024 6:35 AM COLD WATER MACHINE OPERATOR) eGFR 61 >=60 mL/min/1. 73 m2 Comment: [...] last reviewed 2020. Blood 04/03/2024 6:35 AM COLD WATER MACHINE OPERATOR 04/03/2024 7:58 AM COLD WATER MACHINE OPERATOR Donnie Erazo MD LAB BLOOD ORDERABLES Final Resul t Performing Organization Address [facility] Co de Phone Number [facility] [place] [address] * Differential, auto (04/03/2024 6:35 AM COLD WATER MACHINE OPERATOR) Neutrophil abs 2.5 1.5 - 6.5 K/cumm Imm gran abs 0.0 0.0 - 0.1 K/cumm [facility] Lymphocyte abs 1.2 0.8 - 3.3 K/cumm [facility] Monocyte abs 0.5 0.2 - 0.8 K/cumm [facility] Eosinophil abs 0.2 0.0 - 0.5 K/cumm [facility] Basophil abs 0.0 0.0 - 0.1 K/cumm [facility] Neutrophil pct 56.1 % [facility] Comment: Interpretive Data Percent cell count reference ranges are not reported, since discordance with absolute values may lead to misinterpretation of CBC data. Current Interpretive Data was last revised on 2017. Imm gran pct 0.5 % [facility] Comment: Interpretive Data Percent cell count reference ranges are not reported, since discordance with absolute values may lead to misinterpretation of CBC data. Current Interpretive Data was last revised on 2017. Lymphocyte pct 28.1 % [facility] Comment: Interpretive Data Percent cell count reference ranges are not reported, since discordance with absolute values may lead to misinterpretation of CBC data. Current Interpretive Data was last revised on 2017. Monocyte pct 11.5 % [facility] Comment: Interpretive Data Percent cell count reference ranges are not reported, since discordance with absolute values may lead to misinterpretation of CBC data. Current Interpretive Data was last revised on 2017. Eosinophil pct 3.6 % [facility] Comment: Interpretive Data Percent cell count reference ranges are not reported, since discordance with absolute values may lead to misinterpretation of CBC data. Current Interpretive Data was last revised on 2017. Basophil pct 0.2 % [facility] Comment: Interpretive Data Percent cell count reference ranges are not reported, since discordance with absolute values may lead to misinterpretation of CBC data. Current Interpretive Data was last revised on 2017. Blood 04/03/2024 6:35 AM COLD WATER MACHINE OPERATOR 04/03/2024 7:58 AM COLD WATER MACHINE OPERATOR Donnie Earzo MD LAB BLOOD ORDERABLES Final Resul t Performing Organization Address [facility] Co de Phone Number [facility] [place] [address] * (ABNORMAL) CBC with auto differential (04/03/2024 6:35 AM COLD WATER MACHINE OPERATOR) Pathologist [facility] WBC 4.4 3.8 - 9.9 K/cumm Hgb 8.3(L) 11.9 - 15.5 g/dL [facility] Hct 26.6(L) 35.6 - 45.5 % [facility] Plt 105(L) 150 - 400 K/cumm [facility] MPV 10.5 9.1 - 12.3 fL [facility] RBC 2.95(L) 3.90 - 5.20 M/cumm [facility] MCV 90.2 81.3 - 96.4 fL [facility] MCH 28.1 27.1 - 33.3 pg [facility] MCHC 31.2(L) 32.3 - 35.7 g/dL [facility] RDW CV 22.1(H) 11.1 - 14.9 % [facility] RDW SD 70.1(H) 35.7 - 48.1 fL [facility] NRBC abs 0.00 0.00 - 0.01 K/cumm [facility] Blood 04/03/2024 6:35 AM COLD WATER MACHINE OPERATOR 04/03/2024 7:58 AM COLD WATER MACHINE OPERATOR Donnie Erazo MD LAB BLOOD ORDERABLES Final Resul t Performing Organization Address [facility]/ZIP Co de Phone Number [facility] [place] [address] * (ABNORMAL) Basic metabolic panel (04/03/2024 6:35 AM COLD WATER MACHINE OPERATOR) Pathologist [facility] Sodium 144 135 - 145 mmol/L Potassium, pl 3.7 3.3 - 4.9 mmol/L [facility] Chloride 122(H) 97 - 110 mmol/L [facility] CO2 19(L) 22 - 32 mmol/L [facility] Anion gap 3 2 - 15 mmol/L [facility] BUN 10 6 - 25 mg/dL [facility] Creatinine 0.94 0.60 - 1.10 mg/dL [facility] Glucose 97 70 - 199 mg/dL [facility] Comment: Interpretive Data Fasting glucose >/= 126 [...] 2022. Calcium 10.7(H) 8.5 - 10.3 mg/dL [facility] Blood 04/03/2024 6:3 5 AM COLD WATER MACHINE OPERATOR 04/03/2024 7:58 AM COLD WATER MACHINE OPERATOR us Donine Erazo MD LAB BLOOD ORDERABLES Final Resul t [facility] [place] [address] * eGFR (04/03/2024 3:10 AM COLD WATER MACHINE OPERATOR) eGFR 61 >=60 mL/min/1. 73 m2 Comment: [...] last reviewed 2020. Blood 04/03/2024 3:10 AM COLD WATER MACHINE OPERATOR 04/03/2024 5:47 AM COLD WATER MACHINE OPERATOR us Donnie Erazo MD LAB BLOOD ORDERABLES Final Resul t [facility] One [facility] [place] [address] * (ABNORMAL) Basic metabolic panel (04/03/2024 3:10 AM COLD WATER MACHINE OPERATOR) Sodium 143 135 - 145 mmol/L Potassium, pl 3.9 3.3 - 4.9 mmol/L [facility] Chloride 121(H) 97 - 110 mmol/L [facility] CO2 18(L) 22 - 32 mmol/L [facility] Anion gap 4 2 - 15 mmol/L [facility] BUN 11 6 - 25 mg/dL [facility] Creatinine 0.94 0.60 - 1.10 mg/dL [facility] Glucose 93 70 - 199 mg/dL [facility] Comment: Interpretive Data Fasting glucose >/= 126 [...] 2022. Calcium 10.2 8.5 - 10.3 mg/dL [facility] Blood 04/03/2024 3:10 AM COLD WATER MACHINE OPERATOR 04/03/2024 5:39 AM COLD WATER MACHINE OPERATOR us Donnie Erazo MD LAB BLOOD ORDERABLES Final Resul t Performing Organization Address [facility]/ZIP Co de Phone Number [facility] [place] [address] * eGFR (04/01/2024 4:00 AM COLD WATER MACHINE OPERATOR) eGFR 65 >=60 mL/min/1. 73 m2 Comment: [...] last reviewed 2020. Blood 04/01/2024 4:00 AM COLD WATER MACHINE OPERATOR 04/01/2024 6:16 AM COLD WATER MACHINE OPERATOR Donnie Erazo MD LAB BLOOD ORDERABLES Final Resul t Performing Organization Address City/[facility]/ZIP Co de Phone Number [facility] [place] [address] * (ABNORMAL) Basic metabolic panel (04/01/2024 4:00 AM COLD WATER MACHINE OPERATOR) Sodium 146(H) 135 - 145 mmol/L Potassium, pl 3.3 3.3 - 4.9 mmol/L [facility] Chloride 122(H) 97 - 110 mmol/L [facility] CO2 19(L) 22 - 32 mmol/L [facility] Anion gap 5 2 - 15 mmol/L [facility] BUN 12 6 - 25 mg/dL [facility] Creatinine 0.89 0.60 - 1.10 mg/dL [facility] Glucose 77 70 - 199 mg/dL [facility] Comment: Interpretive Data Fasting glucose >/= 126 [...] 2022. Calcium 10.9(H) 8.5 - 10.3 mg/dL [facility] Blood 04/01/2024 4:00 AM COLD WATER MACHINE OPERATOR 04/01/2024 6:01 AM COLD WATER MACHINE OPERATOR us Donnie Erazo MD LAB BLOOD ORDERABLES Final Resul t [facility] [place] [address] * eGFR (03/31/2024 4:30 AM COLD WATER MACHINE OPERATOR) eGFR 67 >=60 mL/min/1. 73 m2 Comment: [...] last reviewed 2020. Blood 03/31/2024 4:30 AM COLD WATER MACHINE OPERATOR 03/31/2024 5:55 AM COLD WATER MACHINE OPERATOR us Donnie Erazo MD LAB BLOOD ORDERABLES Final Resul t Performing Organization Address [facility] Co de Phone Number [facility] [place] [address] * (ABNORMAL) Hemoglobin (03/31/2024 4:30 AM COLD WATER MACHINE OPERATOR) Hgb 7.3(L) 11.9 - 15.5 g/dL Blood 03/31/2024 4:30 AM COLD WATER MACHINE OPERATOR 03/31/2024 5:41 AM COLD WATER MACHINE OPERATOR us Donnie Erazo MD LAB BLOOD ORDERABLES Final Resul t Performing Organization Address [facility] Co de Phone Number [facility] [place] [address] * (ABNORMAL) Hematocrit (03/31/2024 4:30 AM COLD WATER MACHINE OPERATOR) Hct 23.6(L) 35.6 - 45.5 % Blood 03/31/2024 4:30 AM COLD WATER MACHINE OPERATOR 03/31/2024 5:41 AM COLD WATER MACHINE OPERATOR us Donnie Erazo MD LAB BLOOD ORDERABLES Final Resul t Performing Organization Address [facility] Co de Phone Number [facility] [place] [address] * (ABNORMAL) Ferritin (03/31/2024 4:30 AM COLD WATER MACHINE OPERATOR) Ferritin 535(H) 13 - 150 ng/mL Blood 03/31/2024 4:30 AM COLD WATER MACHINE OPERATOR 03/31/2024 5:41 AM COLD WATER MACHINE OPERATOR Donnie Erazo MD LAB BLOOD ORDERABLES Final Resul t Performing Organization Address City/[facility]/ZIP Co de Phone Number [facility] [place] [address] * (ABNORMAL) Basic metabolic panel (03/31/2024 4:30 AM COLD WATER MACHINE OPERATOR) Pathologist [facility] Sodium 140 135 - 145 mmol/L Potassium, pl 3.4 3.3 - 4.9 mmol/L [facility] Chloride 118(H) 97 - 110 mmol/L [facility] CO2 15(L) 22 - 32 mmol/L [facility] Anion gap 7 2 - 15 mmol/L [facility] BUN 13 6 - 25 mg/dL [facility] Creatinine 0.87 0.60 - 1.10 mg/dL [facility] Glucose 79 70 - 199 mg/dL [facility] Comment: Interpretive Data Fasting glucose >/= 126 [...] 2022. Calcium 10.3 8.5 - 10.3 mg/dL [facility] Blood 03/31/2024 4:30 AM COLD WATER MACHINE OPERATOR 03/31/2024 5:41 AM COLD WATER MACHINE OPERATOR Donnie Erazo MD LAB BLOOD ORDERABLES Final Resul t Performing Organization Address [facility]/ZIP Co de Phone Number [facility] Department [place] [address] * C. difficile testing Stool (03/30/2024 5:18 PM COLD WATER MACHINE OPERATOR) Pathologist [facility] Result Negative Negative Toxin Result Negative Negative [facility] C. diff result Negative, free toxin Negative, free toxin [facility] C. diff interp Negative for toxigenic Clostridioides (Clostridium) difficile. Analysis was performed using a glutamate dehydrogenase antigen detection assay combined with a C. difficile toxin detection assay. [facility] Stool 03/30/2024 5:18 PM COLD WATER MACHINE OPERATOR 03/31/2024 7:00 AM COLD WATER MACHINE OPERATOR us Donnie Erazo MD LAB MICROBIOLOGY - GENERAL ORDER [place] Final Result Performing Organization Address [facility] Co de Phone Number [facility] [place] [address] * eGFR (03/30/2024 4:00 AM COLD WATER MACHINE OPERATOR) eGFR 61 >=60 mL/min/1. 73 m2 Comment: [...] last reviewed 2020. Blood 03/30/2024 4:00 AM COLD WATER MACHINE OPERATOR 03/30/2024 8:44 AM COLD WATER MACHINE OPERATOR us Notinfile Unknown LAB BLOOD ORDERABLES Final Res ult Performing Organization Address City/[facility]/ZIP Co de Phone Number [facility] [place] [address] * Differential, auto (03/30/2024 4:00 AM COLD WATER MACHINE OPERATOR) Neutrophil abs 2.0 1.5 - 6.5 K/cumm Imm gran abs 0.0 0.0 - 0.1 K/cumm [facility] Lymphocyte abs 1.3 0.8 - 3.3 K/cumm [facility] Monocyte abs 0.5 0.2 - 0.8 K/cumm [facility] Eosinophil abs 0.2 0.0 - 0.5 K/cumm [facility] Basophil abs 0.0 0.0 - 0.1 K/cumm [facility] Neutrophil pct 50.8 % [facility] Comment: Interpretive Data Percent cell count reference ranges are not reported, since discordance with absolute values may lead to misinterpretation of CBC data. Current Interpretive Data was last revised on 2017. Imm gran pct 0.5 % [facility] Comment: Interpretive Data Percent cell count reference ranges are not reported, since discordance with absolute values may lead to misinterpretation of CBC data. Current Interpretive Data was last revised on 2017. Lymphocyte pct 32.7 % [facility] Comment: Interpretive Data Percent cell count reference ranges are not reported, since discordance with absolute values may lead to misinterpretation of CBC data. Current Interpretive Data was last revised on 2017. Monocyte pct 11.4 % [facility] Comment: Interpretive Data Percent cell count reference ranges are not reported, since discordance with absolute values may lead to misinterpretation of CBC data. Current Interpretive Data was last revised on 2017. Eosinophil pct 4.3 % [facility] Comment: Interpretive Data Percent cell count reference ranges are not reported, since discordance with absolute values may lead to misinterpretation of CBC data. Current Interpretive Data was last revised on 2017. Basophil pct 0.3 % [facility] Comment: Interpretive Data Percent cell count reference ranges are not reported, since discordance with absolute values may lead to misinterpretation of CBC data. Current Interpretive Data was last revised on 2017. Blood 03/30/2024 4:00 AM COLD WATER MACHINE OPERATOR 03/30/2024 8:29 AM COLD WATER MACHINE OPERATOR us Notinfile Unknown LAB BLOOD ORDERABLES Final Res ult [facility] [place] [address] * (ABNORMAL) CBC with auto differential (03/30/2024 4:00 AM COLD WATER MACHINE OPERATOR) WBC 3.9 3.8 - 9.9 K/cumm Hgb 6.3(C) 11.9 - 15.5 g/dL [facility] Comment:Critical result call ed to and read back by GALEN NORTON RN on 03 30 2024 at 0918 to Carin Stout. Hct 20.4(L) 35.6 - 45.5 % [facility] Plt 77(L) 150 - 400 K/cumm [facility] MPV Not Measured 9.1 - 12.3 fL [facility] RBC 2.22(L) 3.90 - 5.20 M/cumm [facility] MCV 91.9 81.3 - 96.4 fL [facility] MCH 28.4 27.1 - 33.3 pg [facility] MCHC 30.9(L) 32.3 - 35.7 g/dL [facility] RDW CV 22.7(H) 11.1 - 14.9 % [facility] RDW SD 73.9(H) 35.7 - 48.1 fL [facility] NRBC abs 0.00 0.00 - 0.01 K/cumm [facility] Blood 03/30/2024 4:00 AM COLD WATER MACHINE OPERATOR 03/30/2024 8:29 AM COLD WATER MACHINE OPERATOR us Notinfile Unknown LAB BLOOD ORDERABLES Final Res ult [facility] [place] [address] * Phosphorus (03/30/2024 4:00 AM COLD WATER MACHINE OPERATOR) Pathologist [facility] Phosphorus, pl 2.5 2.3 - 4.5 mg/dL Blood 03/30/2024 4:00 AM COLD WATER MACHINE OPERATOR 03/30/2024 8:28 AM COLD WATER MACHINE OPERATOR us Notinfile Unknown LAB BLOOD ORDERABLES Final Res ult [facility] [place] [address] * (ABNORMAL) Magnesium (03/30/2024 4:00 AM COLD WATER MACHINE OPERATOR) Pathologist [facility] Magnesium 1.3(L) 1.4 - 2.5 mg/dL Blood 03/30/2024 4:00 AM COLD WATER MACHINE OPERATOR 03/30/2024 8:28 AM COLD WATER MACHINE OPERATOR us Notinfile Unknown LAB BLOOD ORDERABLES Final Res ult Performing Organization Address [facility] Co de Phone Number [facility] [place] [address] * (ABNORMAL) Comprehensive metabolic panel (03/30/2024 4:00 AM COLD WATER MACHINE OPERATOR) Sodium 142 135 - 145 mmol/L Potassium, pl 3.1(L) 3.3 - 4.9 mmol/L [facility] Chloride 120(H) 97 - 110 mmol/L [facility] CO2 17(L) 22 - 32 mmol/L [facility] Anion gap 5 2 - 15 mmol/L [facility] BUN 16 6 - 25 mg/dL [facility] Creatinine 0.94 0.60 - 1.10 mg/dL [facility] Glucose 80 70 - 199 mg/dL [facility] Comment: Interpretive Data Fasting glucose >/= 126 [...] 2022. Calcium 10.3 8.5 - 10.3 mg/dL [facility] Bilirubin, total 0.3 0.1 - 1.2 mg/dL [facility] Protein, pl 6.1(L) 6.5 - 8.5 g/dL [facility] Albumin 2.1(L) 3.5 - 5.0 g/dL [facility] Alk phos 518(H) 40 - 130 Units/L [facility] ALT 172(H) 7 - 45 Units/L [facility] AST 198(H) 10 - 45 Units/L [facility] Blood 03/30/2024 4:00 AM COLD WATER MACHINE OPERATOR 03/30/2024 8:28 AM COLD WATER MACHINE OPERATOR us Notinfile Unknown LAB BLOOD ORDERABLES Final Res ult [facility] [place] [address] * eGFR (03/29/2024 3:30 AM COLD WATER MACHINE OPERATOR) eGFR 61 >=60 mL/min/1. 73 m2 Comment: [...] last reviewed 2020. Blood 03/29/2024 3:30 AM COLD WATER MACHINE OPERATOR 03/29/2024 5:47 AM COLD WATER MACHINE OPERATOR us Donnie Erazo MD LAB BLOOD ORDERABLES Final Resul t [facility] [place] [address] * Differential, auto (03/29/2024 3:30 AM COLD WATER MACHINE OPERATOR) Pathologist [facility] Neutrophil abs 2.6 1.5 - 6.5 K/cumm Imm gran abs 0.0 0.0 - 0.1 K/cumm [facility] Lymphocyte abs 1.2 0.8 - 3.3 K/cumm [facility] Monocyte abs 0.5 0.2 - 0.8 K/cumm [facility] Eosinophil abs 0.2 0.0 - 0.5 K/cumm [facility] Basophil abs 0.0 0.0 - 0.1 K/cumm [facility] Neutrophil pct 57.2 % [facility] Comment: Interpretive Data Percent cell count reference ranges are not reported, since discordance with absolute values may lead to misinterpretation of CBC data. Current Interpretive Data was last revised on 2017. Imm gran pct 0.4 % [facility] Comment: Interpretive Data Percent cell count reference ranges are not reported, since discordance with absolute values may lead to misinterpretation of CBC data. Current Interpretive Data was last revised on 2017. Lymphocyte pct 26.8 % [facility] Comment: Interpretive Data Percent cell count reference ranges are not reported, since discordance with absolute values may lead to misinterpretation of CBC data. Current Interpretive Data was last revised on 2017. Monocyte pct 10.2 % [facility] Comment: Interpretive Data Percent cell count reference ranges are not reported, since discordance with absolute values may lead to misinterpretation of CBC data. Current Interpretive Data was last revised on 2017. Eosinophil pct 5.0 % [facility] Comment: Interpretive Data Percent cell count reference ranges are not reported, since discordance with absolute values may lead to misinterpretation of CBC data. Current Interpretive Data was last revised on 2017. Basophil pct 0.4 % [facility] Comment: Interpretive Data Percent cell count reference ranges are not reported, since discordance with absolute values may lead to misinterpretation of CBC data. Current Interpretive Data was last revised on 2017. Blood 03/29/2024 3:30 AM COLD WATER MACHINE OPERATOR 03/29/2024 5:48 AM COLD WATER MACHINE OPERATOR Donnie Erazo MD LAB BLOOD ORDERABLES Final Resul t Performing Organization Address City/[facility] Co de Phone Number [facility] [place] [address] * (ABNORMAL) CBC with auto differential (03/29/2024 3:30 AM COLD WATER MACHINE OPERATOR) WBC 4.6 3.8 - 9.9 K/cumm Hgb 7.1(L) 11.9 - 15.5 g/dL [facility] Hct 23.1(L) 35.6 - 45.5 % [facility] Plt 78(L) 150 - 400 K/cumm [facility] MPV Not Measured 9.1 - 12.3 fL [facility] RBC 2.52(L) 3.90 - 5.20 M/cumm [facility] MCV 91.7 81.3 - 96.4 fL [facility] MCH 28.2 27.1 - 33.3 pg [facility] MCHC 30.7(L) 32.3 - 35.7 g/dL [facility] RDW CV 23.2(H) 11.1 - 14.9 % [facility] RDW SD 75.7(H) 35.7 - 48.1 fL [facility] NRBC abs 0.00 0.00 - 0.01 K/cumm [facility] Blood 03/29/2024 3:30 AM COLD WATER MACHINE OPERATOR 03/29/2024 5:48 AM COLD WATER MACHINE OPERATOR Narrative [facility] - 03/29/2024 6:18 AM COLD WATER MACHINE OPERATOR [id number] Donnie Erazo MD LAB BLOOD ORDERABLES Final Resul t Performing Organization Address City/[facility]/ZIP Co de Phone Number [facility] Department [place] [address] * (ABNORMAL) Basic metabolic panel (03/29/2024 3:30 AM COLD WATER MACHINE OPERATOR) Sodium 140 135 - 145 mmol/L Potassium, pl 3.3 3.3 - 4.9 mmol/L [facility] Chloride 119(H) 97 - 110 mmol/L [facility] CO2 16(L) 22 - 32 mmol/L [facility] Anion gap 5 2 - 15 mmol/L [facility] BUN 21 6 - 25 mg/dL [facility] Creatinine 0.94 0.60 - 1.10 mg/dL [facility] Glucose 123 70 - 199 mg/dL [facility] Comment: Interpretive Data Fasting glucose >/= 126 [...] 2022. Calcium 10.5(H) 8.5 - 10.3 mg/dL [facility] Blood 03/29/2024 3:30 AM COLD WATER MACHINE OPERATOR 03/29/2024 5:47 AM COLD WATER MACHINE OPERATOR Narrative [facility] - 03/29/2024 6:52 AM COLD WATER MACHINE OPERATOR [id number] Donnie Erazo MD LAB BLOOD ORDERABLES Final Resul t [facility] [place] [address] * (ABNORMAL) eGFR (03/28/2024 4:00 AM COLD WATER MACHINE OPERATOR) eGFR 53(L) >=60 mL/min/1. 73 m2 Comment: [...] last reviewed 2020. Blood 03/28/2024 4:00 AM COLD WATER MACHINE OPERATOR 03/28/2024 6:44 AM COLD WATER MACHINE OPERATOR us Donnie Erazo MD LAB BLOOD ORDERABLES Final Resul t [facility] [place] [address] * (ABNORMAL) Renal function panel (03/28/2024 4:00 AM COLD WATER MACHINE OPERATOR) Sodium 143 135 - 145 mmol/L Potassium, pl 3.7 3.3 - 4.9 mmol/L [facility] Chloride 123(H) 97 - 110 mmol/L [facility] CO2 15(L) 22 - 32 mmol/L [facility] Anion gap 5 2 - 15 mmol/L [facility] BUN 28(H) 6 - 25 mg/dL [facility] Creatinine 1.05 0.60 - 1.10 mg/dL [facility] Glucose 102 70 - 199 mg/dL [facility] Comment: Interpretive Data Fasting glucose >/= 126 [...] 2022. Calcium 10.7(H) 8.5 - 10.3 mg/dL [facility] Phosphorus, pl 2.9 2.3 - 4.5 mg/dL [facility] Albumin 2.1(L) 3.5 - 5.0 g/dL [facility] Blood 03/28/2024 4:00 AM COLD WATER MACHINE OPERATOR 03/28/2024 6:38 AM COLD WATER MACHINE OPERATOR us Donnie Erazo MD LAB BLOOD ORDERABLES Final Resul t [facility] [place] [address] * Differential, auto (03/27/2024 9:46 AM COLD WATER MACHINE OPERATOR) Neutrophil abs 2.4 1.5 - 6.5 K/cumm Imm gran abs 0.0 0.0 - 0.1 K/cumm [facility] Lymphocyte abs 1.2 0.8 - 3.3 K/cumm [facility] Monocyte abs 0.5 0.2 - 0.8 K/cumm [facility] Eosinophil abs 0.3 0.0 - 0.5 K/cumm [facility] Basophil abs 0.0 0.0 - 0.1 K/cumm [facility] Neutrophil pct 55.0 % [facility] Comment: Interpretive Data Percent cell count reference ranges are not reported, since discordance with absolute values may lead to misinterpretation of CBC data. Current Interpretive Data was last revised on 2017. Imm gran pct 0.7 % [facility] Comment: Interpretive Data Percent cell count reference ranges are not reported, since discordance with absolute values may lead to misinterpretation of CBC data. Current Interpretive Data was last revised on 2017. Lymphocyte pct 26.3 % [facility] Comment: Interpretive Data Percent cell count reference ranges are not reported, since discordance with absolute values may lead to misinterpretation of CBC data. Current Interpretive Data was last revised on 2017. Monocyte pct 11.6 % [facility] Comment: Interpretive Data Percent cell count reference ranges are not reported, since discordance with absolute values may lead to misinterpretation of CBC data. Current Interpretive Data was last revised on 2017. Eosinophil pct 5.9 % [facility] Comment: Interpretive Data Percent cell count reference ranges are not reported, since discordance with absolute values may lead to misinterpretation of CBC data. Current Interpretive Data was last revised on 2017. Basophil pct 0.5 % [facility] Comment: Interpretive Data Percent cell count reference ranges are not reported, since discordance with absolute values may lead to misinterpretation of CBC data. Current Interpretive Data was last revised on 2017. Blood 03/27/2024 9:46 AM COLD WATER MACHINE OPERATOR 03/27/2024 12:55 PM COLD WATER MACHINE OPERATOR us Donnie Erazo MD LAB BLOOD ORDERABLES Final Resul t [facility] Department of Laboratories [place], [place] [id number] * (ABNORMAL) CBC with auto differential (03/27/2024 9:46 AM COLD WATER MACHINE OPERATOR) WBC 4.4 3.8 - 9.9 K/cumm Hgb 7.1(L) 11.9 - 15.5 g/dL [facility] Hct 23.4(L) 35.6 - 45.5 % [facility] Plt 71(L) 150 - 400 K/cumm [facility] MPV 10.8 9.1 - 12.3 fL [facility] RBC 2.49(L) 3.90 - 5.20 M/cumm [facility] MCV 94.0 81.3 - 96.4 fL [facility] MCH 28.5 27.1 - 33.3 pg [facility] MCHC 30.3(L) 32.3 - 35.7 g/dL [facility] RDW CV 23.8(H) 11.1 - 14.9 % [facility] RDW SD 78.3(H) 35.7 - 48.1 fL [facility] NRBC abs 0.00 0.00 - 0.01 K/cumm [facility] Blood 03/27/2024 9:46 AM COLD WATER MACHINE OPERATOR 03/27/2024 12:55 PM COLD WATER MACHINE OPERATOR us Donnie Erazo MD LAB BLOOD ORDERABLES Final Resul t Performing Organization Address City/[facility]/ZIP Co de Phone Number [facility] [place] [address] * (ABNORMAL) eGFR (03/27/2024 4:00 AM COLD WATER MACHINE OPERATOR) eGFR 56(L) >=60 mL/min/1. 73 m2 Comment: [...] last reviewed 2020. Blood 03/27/2024 4:00 AM COLD WATER MACHINE OPERATOR 03/27/2024 5:47 AM COLD WATER MACHINE OPERATOR us Donnie Erazo MD LAB BLOOD ORDERABLES Final Resul t [facility] [place] [address] * Differential, auto (03/27/2024 4:00 AM COLD WATER MACHINE OPERATOR) Neutrophil abs 2.5 1.5 - 6.5 K/cumm Imm gran abs 0.0 0.0 - 0.1 K/cumm [facility] Lymphocyte abs 1.4 0.8 - 3.3 K/cumm [facility] Monocyte abs 0.6 0.2 - 0.8 K/cumm [facility] Eosinophil abs 0.2 0.0 - 0.5 K/cumm [facility] Basophil abs 0.0 0.0 - 0.1 K/cumm [facility] Neutrophil pct 53.0 % [facility] Comment: Interpretive Data Percent cell count reference ranges are not reported, since discordance with absolute values may lead to misinterpretation of CBC data. Current Interpretive Data was last revised on 2017. Imm gran pct 0.4 % [facility] Comment: Interpretive Data Percent cell count reference ranges are not reported, since discordance with absolute values may lead to misinterpretation of CBC data. Current Interpretive Data was last revised on 2017. Lymphocyte pct 28.8 % [facility] Comment: Interpretive Data Percent cell count reference ranges are not reported, since discordance with absolute values may lead to misinterpretation of CBC data. Current Interpretive Data was last revised on 2017. Monocyte pct 12.9 % [facility] Comment: Interpretive Data Percent cell count reference ranges are not reported, since discordance with absolute values may lead to misinterpretation of CBC data. Current Interpretive Data was last revised on 2017. Eosinophil pct 4.7 % [facility] Comment: Interpretive Data Percent cell count reference ranges are not reported, since discordance with absolute values may lead to misinterpretation of CBC data. Current Interpretive Data was last revised on 2017. Basophil pct 0.2 % [facility] Comment: Interpretive Data Percent cell count reference ranges are not reported, since discordance with absolute values may lead to misinterpretation of CBC data. Current Interpretive Data was last revised on 2017. Blood 03/27/2024 4:00 AM COLD WATER MACHINE OPERATOR 03/27/2024 5:28 AM COLD WATER MACHINE OPERATOR Donnie Erazo MD LAB BLOOD ORDERABLES Final Resul t Performing Organization Address [facility] Co de Phone Number [facility] Department [place] [address] * (ABNORMAL) CBC with auto differential (03/27/2024 4:00 AM COLD WATER MACHINE OPERATOR) Pathologist [facility] [place] WBC 4.7 3.8 - 9.9 K/cumm Hgb 6.8(L) 11.9 - 15.5 g/dL [facility] Hct 22.4(L) 35.6 - 45.5 % [facility] Plt 76(L) 150 - 400 K/cumm [facility] MPV 11.1 9.1 - 12.3 fL [facility] RBC 2.41(L) 3.90 - 5.20 M/cumm [facility] MCV 92.9 81.3 - 96.4 fL [facility] MCH 28.2 27.1 - 33.3 pg [facility] MCHC 30.4(L) 32.3 - 35.7 g/dL [facility] RDW CV 23.7(H) 11.1 - 14.9 % [facility] RDW SD 78.1(H) 35.7 - 48.1 fL [facility] NRBC abs 0.00 0.00 - 0.01 K/cumm [facility] Blood 03/27/2024 4:00 AM COLD WATER MACHINE OPERATOR 03/27/2024 5:28 AM COLD WATER MACHINE OPERATOR Donnie Erazo MD LAB BLOOD ORDERABLES Final Resul t Performing Organization Address [facility]/ZIP Co de Phone Number [facility] [place] [address] * Phosphorus (03/27/2024 4:00 AM COLD WATER MACHINE OPERATOR) Phosphorus, pl 2.6 2.3 - 4.5 mg/dL Blood 03/27/2024 4:00 AM COLD WATER MACHINE OPERATOR 03/27/2024 5:27 AM COLD WATER MACHINE OPERATOR us Donnie Erazo MD LAB BLOOD ORDERABLES Final Resul t Performing Organization Address City/[facility] Co de Phone Number [facility] Department [place] [address] * Magnesium (03/27/2024 4:00 AM COLD WATER MACHINE OPERATOR) Pathologist [facility] Magnesium 1.9 1.4 - 2.5 mg/dL Blood 03/27/2024 4:00 AM COLD WATER MACHINE OPERATOR 03/27/2024 5:27 AM COLD WATER MACHINE OPERATOR Donnie Erazo MD LAB BLOOD ORDERABLES Final Resul t Performing Organization Address [facility] de Phone Number [facility] [place] [address] * (ABNORMAL) Comprehensive metabolic panel (03/27/2024 4:00 AM COLD WATER MACHINE OPERATOR) Pathologist [facility] Sodium 145 135 - 145 mmol/L Potassium, pl 3.8 3.3 - 4.9 mmol/L [facility] Chloride 123(H) 97 - 110 mmol/L [facility] CO2 16(L) 22 - 32 mmol/L [facility] Anion gap 6 2 - 15 mmol/L [facility] BUN 32(H) 6 - 25 mg/dL [facility] Creatinine 1.01 0.60 - 1.10 mg/dL [facility] Glucose 84 70 - 199 mg/dL [facility] Comment: Interpretive Data Fasting glucose >/= 126 [...] 2022. Calcium 10.4(H) 8.5 - 10.3 mg/dL [facility] Bilirubin, total 0.3 0.1 - 1.2 mg/dL [facility] [facility] Protein, pl 6.8 6.5 - 8.5 g/dL [facility] Albumin 2.3(L) 3.5 - 5.0 g/dL [facility] Alk phos 258(H) 40 - 130 Units/L [facility] ALT 78(H) 7 - 45 Units/L [facility] AST 90(H) 10 - 45 Units/L [facility] Blood 03/27/2024 4:00 AM COLD WATER MACHINE OPERATOR 03/27/2024 5:27 AM COLD WATER MACHINE OPERATOR us Donnie Erazo MD LAB BLOOD ORDERABLES Final Resul t [facility] [place] [address] * (ABNORMAL) eGFR (03/24/2024 4:00 AM COLD WATER MACHINE OPERATOR) eGFR 52(L) >=60 mL/min/1. 73 m2 Comment: [...] last reviewed 2020. Blood 03/24/2024 4:00 AM COLD WATER MACHINE OPERATOR 03/24/2024 5:53 AM COLD WATER MACHINE OPERATOR us Donnie Erazo MD LAB BLOOD ORDERABLES Final Resul t Performing Organization Address City/[facility] Co de Phone Number [facility] [place] [address] * Phosphorus (03/24/2024 4:00 AM COLD WATER MACHINE OPERATOR) Pathologist [facility] Phosphorus, pl 3.5 2.3 - 4.5 mg/dL Blood 03/24/2024 4:00 AM COLD WATER MACHINE OPERATOR 03/24/2024 5:43 AM COLD WATER MACHINE OPERATOR Donnie Erazo MD LAB BLOOD ORDERABLES Final Resul t Performing Organization Address [facility] de Phone Number [facility] Department [place] [address] * (ABNORMAL) Basic metabolic panel (03/24/2024 4:00 AM COLD WATER MACHINE OPERATOR) [facility] Sodium 141 135 - 145 mmol/L Potassium, pl 4.5 3.3 - 4.9 mmol/L [facility] Chloride 119(H) 97 - 110 mmol/L [facility] CO2 17(L) 22 - 32 mmol/L [facility] Anion gap 5 2 - 15 mmol/L [facility] BUN 50(H) 6 - 25 mg/dL [facility] Creatinine 1.08 0.60 - 1.10 mg/dL [facility] Glucose 107 70 - 199 mg/dL [facility] Comment: Interpretive Data Fasting glucose >/= 126 [...] 2022. Calcium 10.8(H) 8.5 - 10.3 mg/dL [facility] Blood 03/24/2024 4:00 AM COLD WATER MACHINE OPERATOR 03/24/2024 5:43 AM COLD WATER MACHINE OPERATOR Donnie Erazo MD LAB BLOOD ORDERABLES Final Resul t Performing Organization Address [facility] de Phone Number [facility] [place] [address] * (ABNORMAL) eGFR (03/23/2024 4:00 AM COLD WATER MACHINE OPERATOR) eGFR 50(L) >=60 mL/min/1. 73 m2 Comment: [...] last reviewed 2020. Blood 03/23/2024 4:00 AM COLD WATER MACHINE OPERATOR 03/23/2024 6:51 AM COLD WATER MACHINE OPERATOR us Donnie Erazo MD LAB BLOOD ORDERABLES Final Resul t Performing Organization Address City/[facility] Co de Phone Number [facility] Department [place] [address] * Differential, auto (03/23/2024 4:00 AM COLD WATER MACHINE OPERATOR) Neutrophil abs 1.9 1.5 - 6.5 K/cumm Imm gran abs 0.0 0.0 - 0.1 K/cumm [facility] Lymphocyte abs 1.5 0.8 - 3.3 K/cumm [facility] Monocyte abs 0.6 0.2 - 0.8 K/cumm [facility] Eosinophil abs 0.2 0.0 - 0.5 K/cumm [facility] Basophil abs 0.0 0.0 - 0.1 K/cumm [facility] Neutrophil pct 44.5 % [facility] Comment: Interpretive Data Percent cell count reference ranges are not reported, since discordance with absolute values may lead to misinterpretation of CBC data. Current Interpretive Data was last revised on 2017. Imm gran pct 1.0 % [facility] Comment: Interpretive Data Percent cell count reference ranges are not reported, since discordance with absolute values may lead to misinterpretation of CBC data. Current Interpretive Data was last revised on 2017. Lymphocyte pct 35.2 % [facility] Comment: Interpretive Data Percent cell count reference ranges are not reported, since discordance with absolute values may lead to misinterpretation of CBC data. Current Interpretive Data was last revised on 2017. Monocyte pct 14.8 % [facility] Comment: Interpretive Data Percent cell count reference ranges are not reported, since discordance with absolute values may lead to misinterpretation of CBC data. Current Interpretive Data was last revised on 2017. Eosinophil pct 4.3 % [facility] Comment: Interpretive Data Percent cell count reference ranges are not reported, since discordance with absolute values may lead to misinterpretation of CBC data. Current Interpretive Data was last revised on 2017. Basophil pct 0.2 % [facility] Comment: Interpretive Data Percent cell count reference ranges are not reported, since discordance with absolute values may lead to misinterpretation of CBC data. Current Interpretive Data was last revised on 2017. Blood 03/23/2024 4:00 AM COLD WATER MACHINE OPERATOR 03/23/2024 6:44 AM COLD WATER MACHINE OPERATOR us Donnie Erazo MD LAB BLOOD ORDERABLES Final Resul t [facility] [place] [address] * (ABNORMAL) CBC with auto differential (03/23/2024 4:00 AM COLD WATER MACHINE OPERATOR) [facility] WBC 4.2 3.8 - 9.9 K/cumm Hgb 7.8(L) 11.9 - 15.5 g/dL [facility] Hct 25.6(L) 35.6 - 45.5 % [facility] Plt 84(L) 150 - 400 K/cumm [facility] MPV Not Measured 9.1 - 12.3 fL [facility] RBC 2.80(L) 3.90 - 5.20 M/cumm [facility] MCV 91.4 81.3 - 96.4 fL [facility] MCH 27.9 27.1 - 33.3 pg [facility] MCHC 30.5(L) 32.3 - 35.7 g/dL [facility] RDW CV 23.9(H) 11.1 - 14.9 % [facility] RDW SD 77.6(H) 35.7 - 48.1 fL [facility] NRBC abs 0.02(H) 0.00 - 0.01 K/cumm [facility] Blood 03/23/2024 4:00 AM COLD WATER MACHINE OPERATOR 03/23/2024 6:44 AM COLD WATER MACHINE OPERATOR us Donnie Erazo MD LAB BLOOD ORDERABLES Final Resul t Performing Organization Address City/[facility]/ZIP Co de Phone Number [facility] Department [place] [address] * Phosphorus (03/23/2024 4:00 AM COLD WATER MACHINE OPERATOR) [facility] Phosphorus, pl 3.8 2.3 - 4.5 mg/dL Blood 03/23/2024 4:00 AM COLD WATER MACHINE OPERATOR 03/23/2024 6:43 AM COLD WATER MACHINE OPERATOR us Donnie Erazo MD LAB BLOOD ORDERABLES Final Resul t Performing Organization Address City/[facility]/ZIP Co de Phone Number [facility] [place] [address] * Magnesium (03/23/2024 4:00 AM COLD WATER MACHINE OPERATOR) Pathologist [facility] Magnesium 2.3 1.4 - 2.5 mg/dL Blood 03/23/2024 4:00 AM COLD WATER MACHINE OPERATOR 03/23/2024 6:43 AM COLD WATER MACHINE OPERATOR Donnie Erazo MD LAB BLOOD ORDERABLES Final Resul t [facility] [place] [address] * (ABNORMAL) Comprehensive metabolic panel (03/23/2024 4:00 AM COLD WATER MACHINE OPERATOR) [facility] Sodium 143 135 - 145 mmol/L Potassium, pl 4.8 3.3 - 4.9 mmol/L [facility] Chloride 120(H) 97 - 110 mmol/L [facility] CO2 17(L) 22 - 32 mmol/L [facility] Anion gap 6 2 - 15 mmol/L [facility] BUN 58(H) 6 - 25 mg/dL [facility] Creatinine 1.11(H) 0.60 - 1.10 mg/dL [facility] Glucose 113 70 - 199 mg/dL [facility] Comment: Interpretive Data Fasting glucose >/= 126 [...] 2022. Calcium 11.2(H) 8.5 - 10.3 mg/dL [facility] Bilirubin, total 0.2 0.1 - 1.2 mg/dL [facility] Protein, pl 7.3 6.5 - 8.5 g/dL [facility] Albumin 2.4(L) 3.5 - 5.0 g/dL [facility] Alk phos 163(H) 40 - 130 Units/L [facility] ALT 54(H) 7 - 45 Units/L [facility] AST 55(H) 10 - 45 Units/L [facility] Blood 03/23/2024 4:00 AM COLD WATER MACHINE OPERATOR 03/23/2024 6:43 AM COLD WATER MACHINE OPERATOR us Donnie Erazo MD LAB BLOOD ORDERABLES Final Resul t Performing Organization Address [facility] Co de Phone Number [facility] [place] [address] * (ABNORMAL) eGFR (03/22/2024 4:00 AM COLD WATER MACHINE OPERATOR) eGFR 55(L) >=60 mL/min/1. 73 m2 Comment: [...] last reviewed 2020. Blood 03/22/2024 4:00 AM COLD WATER MACHINE OPERATOR 03/22/2024 5:13 AM COLD WATER MACHINE OPERATOR us Mono Kirkpatrick MD LAB BLOOD ORDERABLES Final R esult Performing Organization Address City/[facility]/ZIP Co de Phone Number [facility] [place] [address] * Phosphorus (03/22/2024 4:00 AM COLD WATER MACHINE OPERATOR) [facility] Phosphorus, pl 3.4 2.3 - 4.5 mg/dL Blood 03/22/2024 4:00 AM COLD WATER MACHINE OPERATOR 03/22/2024 5:13 AM COLD WATER MACHINE OPERATOR Mono Kirkpatrick MD LAB BLOOD ORDERABLES Final R esult Performing Organization Address City/[facility]/[place] [address] * Magnesium (03/22/2024 4:00 AM COLD WATER MACHINE OPERATOR) [facility] Magnesium 2.2 1.4 - 2.5 mg/dL Blood 03/22/2024 4:00 AM COLD WATER MACHINE OPERATOR 03/22/2024 5:13 AM COLD WATER MACHINE OPERATOR Mono Kirkpatrick MD LAB BLOOD ORDERABLES Final R esult Performing Organization Address City/[facility] [place] [address] * (ABNORMAL) Comprehensive metabolic panel (03/22/2024 4:00 AM COLD WATER MACHINE OPERATOR) [facility] Sodium 143 135 - 145 mmol/L Potassium, pl 4.4 3.3 - 4.9 mmol/L [facility] Chloride 121(H) 97 - 110 mmol/L [facility] CO2 18(L) 22 - 32 mmol/L [facility] Anion gap 4 2 - 15 mmol/L [facility] BUN 57(H) 6 - 25 mg/dL [facility] Creatinine 1.02 0.60 - 1.10 mg/dL [facility] Glucose 127 70 - 199 mg/dL [facility] Comment: Interpretive Data Fasting glucose >/= 126 [...] 2022. Calcium 11.3(H) 8.5 - 10.3 mg/dL [facility] Bilirubin, total 0.3 0.1 - 1.2 mg/dL [facility] Protein, pl 7.3 6.5 - 8.5 g/dL [facility] Albumin 2.5(L) 3.5 - 5.0 g/dL [facility] Alk phos 166(H) 40 - 130 Units/L [facility] ALT 68(H) 7 - 45 Units/L [facility] AST 81(H) 10 - 45 Units/L [facility] Blood 03/22/2024 4:00 AM COLD WATER MACHINE OPERATOR 03/22/2024 5:13 AM COLD WATER MACHINE OPERATOR Mono Kirkpatrick MD LAB BLOOD ORDERABLES Final R esult [facility] [place] [address] * IR Inject Abscess Catheter (03/21/2024 2:00 PM COLD WATER MACHINE OPERATOR) Anatomical Region Laterality Modality Body N/A Radio Fluoroscop y 03/21/2024 5:00 PM COLD WATER MACHINE OPERATOR Impressions 03/21/2024 5:42 PM COLD WATER MACHINE OPERATOR Resolved right upper quadrant fluid collection and improved small right pleural effusion. Catheters were removed. Dictated by: Yulissa Klein M.D. The radiology attending physician has personally reviewed this study, and had reviewed and/or edited this written report and agrees with it. Electronically signed by: Edgar Pate M.D. Narrative 03/21/2024 5:42 PM COLD WATER MACHINE OPERATOR EXAMINATION: DRAINAGE CATHETER EVALUATION AND REMOVAL HISTORY: [...] procedure. TECHNIQUE: Prior to beginning the procedure, [place] Protocol was used to confirm the patient's identity and planned procedure. Fluoroscopy time has been recorded in the electronic medical record. After obtaining a quarter seamer image, the right pleural catheter was injected with dilute contrast and multiple fluoroscopic images obtained. The catheter was then removed over a [employer] guidewire. However, the new catheter could not [...] procedure. TECHNIQUE: Prior to beginning the procedure, [place] Protocol was used to confirm the patient's identity and planned procedure. Fluoroscopy time has been recorded in the electronic medical record. After obtaining a quarter seamer image, the right pleural catheter was injected [...] Final Result * eGFR (03/21/2024 4:00 AM COLD WATER MACHINE OPERATOR) eGFR 66 >=60 mL/min/1. 73 m2 Comment: [...] last reviewed 2020. Blood 03/21/2024 4:00 AM COLD WATER MACHINE OPERATOR 03/21/2024 8:29 AM COLD WATER MACHINE OPERATOR us Notinfile Unknown LAB BLOOD ORDERABLES Final Res ult [facility] [place] [address] * (ABNORMAL) Comprehensive metabolic panel (03/21/2024 4:00 AM COLD WATER MACHINE OPERATOR) Sodium 144 135 - 145 mmol/L Potassium, pl 4.0 3.3 - 4.9 mmol/L [facility] Chloride 122(H) 97 - 110 mmol/L [facility] CO2 17(L) 22 - 32 mmol/L [facility] Anion gap 5 2 - 15 mmol/L [facility] BUN 52(H) 6 - 25 mg/dL [facility] Creatinine 0.88 0.60 - 1.10 mg/dL [facility] Glucose 112 70 - 199 mg/dL [facility] Comment: Interpretive Data Fasting glucose >/= 126 [...] 2022. Calcium 11.2(H) 8.5 - 10.3 mg/dL [facility] Bilirubin, total 0.2 0.1 - 1.2 mg/dL [facility] Protein, pl 7.6 6.5 - 8.5 g/dL [facility] Albumin 2.4(L) 3.5 - 5.0 g/dL [facility] Alk phos 171(H) 40 - 130 Units/L [facility] ALT 72(H) 7 - 45 Units/L [facility] AST 97(H) 10 - 45 Units/L [facility] Blood 03/21/2024 4:00 AM COLD WATER MACHINE OPERATOR 03/21/2024 7:58 AM COLD WATER MACHINE OPERATOR Notinfile Unknown LAB BLOOD ORDERABLES Final Res ult Performing Organization Address [facility] Co de Phone Number [facility] [place] [address] * C. difficile testing Stool (03/20/2024 7:00 PM COLD WATER MACHINE OPERATOR) [facility] Result Negative Negative Toxin Result Negative Negative [facility] C. diff result Negative, free toxin Negative, free toxin [facility] C. diff interp Negative for toxigenic Clostridioides (Clostridium) difficile. Analysis was performed using a glutamate dehydrogenase antigen detection assay combined with a C. difficile toxin detection assay. [facility] Stool 03/20/2024 7:00 PM COLD WATER MACHINE OPERATOR 03/20/2024 8:20 PM COLD WATER MACHINE OPERATOR Donnie Erazo MD LAB MICROBIOLOGY - GENERAL ORDER [place] Final Result Performing Organization Address [facility] de Phone Number [facility] [place] [address] * Phosphorus, serum (03/20/2024 4:00 AM COLD WATER MACHINE OPERATOR) [facility] Phosphorus, sr 2.9 2.3 - 4.5 mg/dL Blood 03/20/2024 4:00 AM COLD WATER MACHINE OPERATOR 03/20/2024 7:00 AM COLD WATER MACHINE OPERATOR us Donnie Erazo MD LAB BLOOD ORDERABLES Final Resul t Performing Organization Address [facility] Co de Phone Number [facility] [place] [address] * eGFR (03/20/2024 4:00 AM COLD WATER MACHINE OPERATOR) Pathologist [facility] eGFR 66 >=60 mL/min/1. 73 m2 Comment: [...] last reviewed 2020. Blood 03/20/2024 4:00 AM COLD WATER MACHINE OPERATOR 03/20/2024 7:08 AM COLD WATER MACHINE OPERATOR us Donnie Erazo MD LAB BLOOD ORDERABLES Final Resul t [facility] [place] [address] * Differential, auto (03/20/2024 4:00 AM COLD WATER MACHINE OPERATOR) [facility] Neutrophil abs 2.0 1.5 - 6.5 K/cumm Imm gran abs 0.0 0.0 - 0.1 K/cumm [facility] Lymphocyte abs 1.9 0.8 - 3.3 K/cumm [facility] Monocyte abs 0.7 0.2 - 0.8 K/cumm [facility] Eosinophil abs 0.2 0.0 - 0.5 K/cumm [facility] Basophil abs 0.0 0.0 - 0.1 K/cumm [facility] Neutrophil pct 41.8 % [facility] Comment: Interpretive Data Percent cell count reference ranges are not reported, since discordance with absolute values may lead to misinterpretation of CBC data. Current Interpretive Data was last revised on 2017. Imm gran pct 0.8 % [facility] Comment: Interpretive Data Percent cell count reference ranges are not reported, since discordance with absolute values may lead to misinterpretation of CBC data. Current Interpretive Data was last revised on 2017. Lymphocyte pct 38.3 % [facility] Comment: Interpretive Data Percent cell count reference ranges are not reported, since discordance with absolute values may lead to misinterpretation of CBC data. Current Interpretive Data was last revised on 2017. Monocyte pct 13.8 % [facility] Comment: Interpretive Data Percent cell count reference ranges are not reported, since discordance with absolute values may lead to misinterpretation of CBC data. Current Interpretive Data was last revised on 2017. Eosinophil pct 4.9 % [facility] Comment: Interpretive Data Percent cell count reference ranges are not reported, since discordance with absolute values may lead to misinterpretation of CBC data. Current Interpretive Data was last revised on 2017. Basophil pct 0.4 % [facility] Comment: Interpretive Data Percent cell count reference ranges are not reported, since discordance with absolute values may lead to misinterpretation of CBC data. Current Interpretive Data was last revised on 2017. Blood 03/20/2024 4:00 AM COLD WATER MACHINE OPERATOR 03/20/2024 6:59 AM COLD WATER MACHINE OPERATOR us Donnie Erazo MD LAB BLOOD ORDERABLES Final Resul t [facility] [place] [address] * (ABNORMAL) CBC with auto differential (03/20/2024 4:00 AM COLD WATER MACHINE OPERATOR) WBC 4.9 3.8 - 9.9 K/cumm Hgb 7.6(L) 11.9 - 15.5 g/dL [facility] Hct 24.5(L) 35.6 - 45.5 % [facility] Plt 105(L) 150 - 400 K/cumm [facility] MPV 10.2 9.1 - 12.3 fL [facility] RBC 2.76(L) 3.90 - 5.20 M/cumm [facility] MCV 88.8 81.3 - 96.4 fL [facility] MCH 27.5 27.1 - 33.3 pg [facility] MCHC 31.0(L) 32.3 - 35.7 g/dL [facility] RDW CV 23.6(H) 11.1 - 14.9 % [facility] RDW SD 74.2(H) 35.7 - 48.1 fL [facility] NRBC abs 0.02(H) 0.00 - 0.01 K/cumm [facility] Blood 03/20/2024 4:00 AM COLD WATER MACHINE OPERATOR 03/20/2024 6:59 AM COLD WATER MACHINE OPERATOR us Donnie Erazo MD LAB BLOOD ORDERABLES Final Resul t [facility] [place] [address] * Triglycerides (03/20/2024 4:00 AM COLD WATER MACHINE OPERATOR) Triglycerides 37 <=149 mg/dL Comment: Interpretive Data [...] revised on 2017. Blood 03/20/2024 4:00 AM COLD WATER MACHINE OPERATOR 03/20/2024 6:59 AM COLD WATER MACHINE OPERATOR us Donnie Erazo MD LAB BLOOD ORDERABLES Final Resul t Performing Organization Address [facility] Co de Phone Number [facility] [place] [address] * Magnesium (03/20/2024 4:00 AM COLD WATER MACHINE OPERATOR) Pathologist [facility] Magnesium 2.2 1.4 - 2.5 mg/dL Blood 03/20/2024 4:00 AM COLD WATER MACHINE OPERATOR 03/20/2024 6:59 AM COLD WATER MACHINE OPERATOR Donnie Erazo MD LAB BLOOD ORDERABLES Final Resul t Performing Organization Address [facility] de Phone Number [facility] [place] [address] * (ABNORMAL) Comprehensive metabolic panel (03/20/2024 4:00 AM COLD WATER MACHINE OPERATOR) [facility] Sodium 143 135 - 145 mmol/L Potassium, pl 4.4 3.3 - 4.9 mmol/L [facility] Chloride 126(H) 97 - 110 mmol/L [facility] CO2 14(L) 22 - 32 mmol/L [facility] Anion gap 3 2 - 15 mmol/L [facility] BUN 55(H) 6 - 25 mg/dL [facility] Creatinine 0.88 0.60 - 1.10 mg/dL [facility] Glucose 77 70 - 199 mg/dL [facility] Comment: Interpretive Data Fasting glucose >/= 126 [...] 2022. Calcium 11.7(H) 8.5 - 10.3 mg/dL [facility] Bilirubin, total 0.3 0.1 - 1.2 mg/dL [facility] Protein, pl 7.6 6.5 - 8.5 g/dL [facility] Albumin 2.5(L) 3.5 - 5.0 g/dL [facility] Alk phos 154(H) 40 - 130 Units/L [facility] ALT 46(H) 7 - 45 Units/L [facility] AST 61(H) 10 - 45 Units/L [facility] Blood 03/20/2024 4:00 AM COLD WATER MACHINE OPERATOR 03/20/2024 6:59 AM COLD WATER MACHINE OPERATOR us Donnie Erazo MD LAB BLOOD ORDERABLES Final Resul t Performing Organization Address City/[facility] Co de Phone Number [facility] [place] [address] * eGFR (03/19/2024 4:00 AM COLD WATER MACHINE OPERATOR) eGFR 63 >=60 mL/min/1. 73 m2 Comment: [...] of Race in Diagnosing Kidney Disease, JASN 2021). The CKD-EPI equation should not be used for patients with unstable renal function and has not been validated in children and those over 70. Current interpretive data was last reviewed 2020. Blood 03/19/2024 4:00 AM COLD WATER MACHINE OPERATOR 03/19/2024 5:32 AM COLD WATER MACHINE OPERATOR us Donnie Erazo MD LAB BLOOD ORDERABLES Final Resul t [facility] [place] [address] * (ABNORMAL) Comprehensive metabolic panel (03/19/2024 4:00 AM COLD WATER MACHINE OPERATOR) Sodium 145 135 - 145 mmol/L Potassium, pl 4.3 3.3 - 4.9 mmol/L [facility] Chloride 126(H) 97 - 110 mmol/L [facility] CO2 14(L) 22 - 32 mmol/L [facility] Anion gap 5 2 - 15 mmol/L [facility] BUN 55(H) 6 - 25 mg/dL [facility] Creatinine 0.91 0.60 - 1.10 mg/dL [facility] Glucose 110 70 - 199 mg/dL [facility] Comment: Interpretive Data Fasting glucose >/= 126 [...] 2022. Calcium 11.8(H) 8.5 - 10.3 mg/dL [facility] Bilirubin, total 0.3 0.1 - 1.2 mg/dL [facility] Protein, pl 7.6 6.5 - 8.5 g/dL [facility] Albumin 2.6(L) 3.5 - 5.0 g/dL [facility] Alk phos 150(H) 40 - 130 Units/L [facility] ALT 38 7 - 45 Units/L [facility] AST 40 10 - 45 Units/L [facility] Blood 03/19/2024 4:00 AM COLD WATER MACHINE OPERATOR 03/19/2024 5:30 AM COLD WATER MACHINE OPERATOR us Donnie Erazo MD LAB BLOOD ORDERABLES Final Resul t [facility] [place] [address] * (ABNORMAL) Phosphorus (03/18/2024 4:00 AM COLD WATER MACHINE OPERATOR) Pathologist [facility] Phosphorus, pl 6.4(H) 2.3 - 4.5 mg/dL Blood 03/18/2024 4:00 AM COLD WATER MACHINE OPERATOR 03/18/2024 5:31 AM COLD WATER MACHINE OPERATOR Narrative [facility] - 03/18/2024 6:21 AM COLD WATER MACHINE OPERATOR [id number] us Donnie Erazo MD LAB BLOOD ORDERABLES Final Resul t Performing Organization Address [facility] Co de Phone Number [facility] [place] [address] * eGFR (03/16/2024 11:51 AM COLD WATER MACHINE OPERATOR) [facility] eGFR 76 >=60 mL/min/1. 73 m2 Comment: [...] reviewed 2020. Blood 03/16/2024 11:5 1 AM COLD WATER MACHINE OPERATOR 03/16/2024 12:22 PM COLD WATER MACHINE OPERATOR us Donnie Erazo MD LAB BLOOD ORDERABLES Final Resul t [facility] [place] [address] * Differential, auto (03/16/2024 11:51 AM COLD WATER MACHINE OPERATOR) Neutrophil abs 1.8 1.5 - 6.5 K/cumm Imm gran abs 0.0 0.0 - 0.1 K/cumm [facility] Lymphocyte abs 1.9 0.8 - 3.3 K/cumm [facility] Monocyte abs 0.7 0.2 - 0.8 K/cumm [facility] Eosinophil abs 0.2 0.0 - 0.5 K/cumm [facility] Basophil abs 0.0 0.0 - 0.1 K/cumm [facility] Neutrophil pct 38.6 % [facility] Comment: Interpretive Data Percent cell count reference ranges are not reported, since discordance with absolute values may lead to misinterpretation of CBC data. Current Interpretive Data was last revised on 2017. Imm gran pct 0.4 % [facility] Comment: Interpretive Data Percent cell count reference ranges are not reported, since discordance with absolute values may lead to misinterpretation of CBC data. Current Interpretive Data was last revised on 2017. Lymphocyte pct 41.2 % [facility] Comment: Interpretive Data Percent cell count reference ranges are not reported, since discordance with absolute values may lead to misinterpretation of CBC data. Current Interpretive Data was last revised on 2017. Monocyte pct 14.3 % [facility] Comment: Interpretive Data Percent cell count reference ranges are not reported, since discordance with absolute values may lead to misinterpretation of CBC data. Current Interpretive Data was last revised on 2017. Eosinophil pct 5.1 % [facility] Comment: Interpretive Data Percent cell count reference ranges are not reported, since discordance with absolute values may lead to misinterpretation of CBC data. Current Interpretive Data was last revised on 2017. Basophil pct 0.4 % [facility] Comment: Interpretive Data Percent cell count reference ranges are not reported, since discordance with absolute values may lead to misinterpretation of CBC data. Current Interpretive Data was last revised on 2017. Blood 03/16/2024 11:5 1 AM COLD WATER MACHINE OPERATOR 03/16/2024 12:02 PM COLD WATER MACHINE OPERATOR Donnie Erazo MD LAB BLOOD ORDERABLES Final Resul t Performing Organization Address [facility] Co de Phone Number [facility] [place] [address] * (ABNORMAL) CBC with auto differential (03/16/2024 11:51 AM COLD WATER MACHINE OPERATOR) WBC 4.7 3.8 - 9.9 K/cumm Hgb 9.0(L) 11.9 - 15.5 g/dL [facility] Hct 30.4(L) 35.6 - 45.5 % [facility] Plt 124(L) 150 - 400 K/cumm [facility] MPV 11.4 9.1 - 12.3 fL [facility] RBC 3.36(L) 3.90 - 5.20 M/cumm [facility] MCV 90.5 81.3 - 96.4 fL [facility] MCH 26.8(L) 27.1 - 33.3 pg [facility] MCHC 29.6(L) 32.3 - 35.7 g/dL [facility] RDW CV 21.7(H) 11.1 - 14.9 % [facility] RDW SD 68.5(H) 35.7 - 48.1 fL [facility] NRBC abs 0.00 0.00 - 0.01 K/cumm [facility] Blood 03/16/2024 11:5 1 AM COLD WATER MACHINE OPERATOR 03/16/2024 12:02 PM COLD WATER MACHINE OPERATOR Donnie Erazo MD LAB BLOOD ORDERABLES Final Resul t Performing Organization Address [facility] Co de Phone Number [facility] Department [place] [address] * (ABNORMAL) Comprehensive metabolic panel (03/16/2024 11:51 AM COLD WATER MACHINE OPERATOR) [facility] Sodium 144 135 - 145 mmol/L Potassium, pl 4.1 3.3 - 4.9 mmol/L [facility] Chloride 127(H) 97 - 110 mmol/L [facility] CO2 13(L) 22 - 32 mmol/L [facility] Anion gap 4 2 - 15 mmol/L [facility] BUN 55(H) 6 - 25 mg/dL [facility] Creatinine 0.78 0.60 - 1.10 mg/dL [facility] Glucose 110 70 - 199 mg/dL [facility] Comment: Interpretive Data Fasting glucose >/= 126 [...] 2022. Calcium 11.3(H) 8.5 - 10.3 mg/dL [facility] Bilirubin, total 0.2 0.1 - 1.2 mg/dL [facility] Protein, pl 7.6 6.5 - 8.5 g/dL [facility] Albumin 2.3(L) 3.5 - 5.0 g/dL [facility] Alk phos 140(H) 40 - 130 Units/L [facility] ALT 30 7 - 45 Units/L [facility] AST 35 10 - 45 Units/L [facility] Blood 03/16/2024 11:5 1 AM COLD WATER MACHINE OPERATOR 03/16/2024 12:02 PM COLD WATER MACHINE OPERATOR us Donnie Erazo MD LAB BLOOD ORDERABLES Final Resul t [facility] [place] [address] * Mislabeled Test (03/15/2024 4:30 PM COLD WATER MACHINE OPERATOR) Location Other location Reason Specimen and Requistion labeling differ [facility] Mislabel resolution Testing canceled [facility] Blood 03/15/2024 4:30 PM COLD WATER MACHINE OPERATOR 03/15/2024 7:22 PM COLD WATER MACHINE OPERATOR us Donnie Erazo MD LAB BLOOD ORDERABLES Final Resul t [facility] [place] [address] * CT Chest Abdomen Pelvis W Contrast (03/15/2024 3:00 PM COLD WATER MACHINE OPERATOR) Anatomical Region Laterality Modality Body N/A Computed Tomogra phy 03/15/2024 3:17 PM COLD WATER MACHINE OPERATOR Impressions 03/15/2024 3:17 PM COLD WATER MACHINE OPERATOR 1. Right-sided chest tube with stable in [...] Abi Hernandez M.D. Narrative 03/15/2024 3:17 PM COLD WATER MACHINE OPERATOR EXAMINATION: CT CHEST ABDOMEN PELVIS W CONTRAST [...] al Result * eGFR (03/15/2024 4:00 AM COLD WATER MACHINE OPERATOR) eGFR 73 >=60 mL/min/1. 73 m2 Comment: [...] last reviewed 2020. Blood 03/15/2024 4:00 AM COLD WATER MACHINE OPERATOR 03/15/2024 5:19 AM COLD WATER MACHINE OPERATOR us Donnie Erazo MD LAB BLOOD ORDERABLES Final Resul t Performing Organization Address City/[facility]/ZIP Co de Phone Number [facility] [place] [address] * Phosphorus (03/15/2024 4:00 AM COLD WATER MACHINE OPERATOR) Phosphorus, pl 2.9 2.3 - 4.5 mg/dL Blood 03/15/2024 4:00 AM COLD WATER MACHINE OPERATOR 03/15/2024 5:07 AM COLD WATER MACHINE OPERATOR Donnie Erazo MD LAB BLOOD ORDERABLES Final Resul t Performing Organization Address [facility] Co de Phone Number [facility] [place] [address] * Magnesium (03/15/2024 4:00 AM COLD WATER MACHINE OPERATOR) [facility] Magnesium 2.0 1.4 - 2.5 mg/dL Blood 03/15/2024 4:00 AM COLD WATER MACHINE OPERATOR 03/15/2024 5:07 AM COLD WATER MACHINE OPERATOR Donnie Erazo MD LAB BLOOD ORDERABLES Final Resul t [facility] [place] [address] * (ABNORMAL) Comprehensive metabolic panel (03/15/2024 4:00 AM COLD WATER MACHINE OPERATOR) [facility] Sodium 141 135 - 145 mmol/L Potassium, pl 4.2 3.3 - 4.9 mmol/L [facility] Chloride 124(H) 97 - 110 mmol/L [facility] CO2 13(L) 22 - 32 mmol/L [facility] Anion gap 4 2 - 15 mmol/L [facility] BUN 52(H) 6 - 25 mg/dL [facility] Creatinine 0.81 0.60 - 1.10 mg/dL [facility] Glucose 106 70 - 199 mg/dL [facility] Comment: Interpretive Data Fasting glucose >/= 126 [...] 2022. Calcium 11.5(H) 8.5 - 10.3 mg/dL [facility] Bilirubin, total 0.2 0.1 - 1.2 mg/dL [facility] Protein, pl 7.4 6.5 - 8.5 g/dL [facility] Albumin 2.2(L) 3.5 - 5.0 g/dL [facility] Alk phos 131(H) 40 - 130 Units/L [facility] ALT 32 7 - 45 Units/L [facility] AST 46(H) 10 - 45 Units/L [facility] Blood 03/15/2024 4:00 AM COLD WATER MACHINE OPERATOR 03/15/2024 5:07 AM COLD WATER MACHINE OPERATOR us Donnie Erazo MD LAB BLOOD ORDERABLES Final Resul t [facility] [place] [address] * eGFR (03/14/2024 4:16 AM COLD WATER MACHINE OPERATOR) eGFR 75 >=60 mL/min/1. 73 m2 Comment: [...] last reviewed 2020. Blood 03/14/2024 4:16 AM COLD WATER MACHINE OPERATOR 03/14/2024 5:01 AM COLD WATER MACHINE OPERATOR us Donnie Erazo MD LAB BLOOD ORDERABLES Final Resul t [facility] [place] [address] * Phosphorus (03/14/2024 4:16 AM COLD WATER MACHINE OPERATOR) [facility] Phosphorus, pl 2.6 2.3 - 4.5 mg/dL Blood 03/14/2024 4:16 AM COLD WATER MACHINE OPERATOR 03/14/2024 4:47 AM COLD WATER MACHINE OPERATOR Donnie Erazo MD LAB BLOOD ORDERABLES Final Resul t Performing Organization Address City/[facility] de Phone Number [facility] Department [place] [address] * Magnesium (03/14/2024 4:16 AM COLD WATER MACHINE OPERATOR) [facility] Magnesium 2.0 1.4 - 2.5 mg/dL Blood 03/14/2024 4:16 AM COLD WATER MACHINE OPERATOR 03/14/2024 4:47 AM COLD WATER MACHINE OPERATOR Donnie Erazo MD LAB BLOOD ORDERABLES Final Resul t Performing Organization Address [facility] de Phone Number [facility] Department [place] [address] * (ABNORMAL) Comprehensive metabolic panel (03/14/2024 4:16 AM COLD WATER MACHINE OPERATOR) [facility] Sodium 139 135 - 145 mmol/L Potassium, pl 3.8 3.3 - 4.9 mmol/L [facility] Chloride 123(H) 97 - 110 mmol/L [facility] CO2 14(L) 22 - 32 mmol/L [facility] Anion gap 2 2 - 15 mmol/L [facility] BUN 41(H) 6 - 25 mg/dL [facility] Creatinine 0.79 0.60 - 1.10 mg/dL [facility] Glucose 112 70 - 199 mg/dL [facility] Comment: Interpretive Data Fasting glucose >/= 126 [...] 2022. Calcium 10.6(H) 8.5 - 10.3 mg/dL [facility] Bilirubin, total 0.2 0.1 - 1.2 mg/dL [facility] Protein, pl 6.9 6.5 - 8.5 g/dL [facility] Albumin 2.1(L) 3.5 - 5.0 g/dL [facility] Alk phos 125 40 - 130 Units/L [facility] ALT 29 7 - 45 Units/L [facility] AST 46(H) 10 - 45 Units/L [facility] Blood 03/14/2024 4:16 AM COLD WATER MACHINE OPERATOR 03/14/2024 4:47 AM COLD WATER MACHINE OPERATOR us Donnie Erazo MD LAB BLOOD ORDERABLES Final Resul t [facility] [place] [address] * eGFR (03/13/2024 4:20 AM COLD WATER MACHINE OPERATOR) eGFR 84 >=60 mL/min/1. 73 m2 Comment: [...] last reviewed 2020. Blood 03/13/2024 4:20 AM COLD WATER MACHINE OPERATOR 03/13/2024 6:44 AM COLD WATER MACHINE OPERATOR Donnie Erazo MD LAB BLOOD ORDERABLES Final Resul t Performing Organization Address [facility] de Phone Number [facility] [place] [address] * (ABNORMAL) CBC with auto differential (03/13/2024 4:20 AM COLD WATER MACHINE OPERATOR) WBC 3.5(L) 3.8 - 9.9 K/cumm Hgb 7.6(L) 11.9 - 15.5 g/dL [facility] Hct 25.6(L) 35.6 - 45.5 % [facility] Plt 139(L) 150 - 400 K/cumm [facility] MPV 10.5 9.1 - 12.3 fL [facility] RBC 2.85(L) 3.90 - 5.20 M/cumm [facility] MCV 89.8 81.3 - 96.4 fL [facility] MCH 26.7(L) 27.1 - 33.3 pg [facility] MCHC 29.7(L) 32.3 - 35.7 g/dL [facility] RDW CV 20.7(H) 11.1 - 14.9 % [facility] RDW SD 66.1(H) 35.7 - 48.1 fL [facility] NRBC abs 0.00 0.00 - 0.01 K/cumm [facility] Blood 03/13/2024 4:20 AM COLD WATER MACHINE OPERATOR 03/13/2024 6:21 AM COLD WATER MACHINE OPERATOR Donnie Erazo MD LAB BLOOD ORDERABLES Final Resul t Performing Organization Address [facility] Co de Phone Number [facility] [place] [address] * Manual Differential (03/13/2024 4:20 AM COLD WATER MACHINE OPERATOR) Pathologist [facility] Differential Manual Cells Counted 115 [facility] Neutrophil abs 2.0 1.5 - 6.5 K/cumm [facility] Imm gran abs 0.0 0.0 - 0.1 K/cumm [facility] Lymphocyte abs 1.2 0.8 - 3.3 K/cumm [facility] Monocyte abs 0.2 0.2 - 0.8 K/cumm [facility] Eosinophil abs 0.2 0.0 - 0.5 K/cumm [facility] Neutrophil pct 55.7 % [facility] Comment: Interpretive Data Percent cell count reference ranges are not reported, since discordance with absolute values may lead to misinterpretation of CBC data. Current Interpretive Data was last revised on 2017. Lymphocyte pct 33.9 % [facility] Comment: Interpretive Data Percent cell count reference ranges are not reported, since discordance with absolute values may lead to misinterpretation of CBC data. Current Interpretive Data was last revised on 2017. Monocyte pct 5.2 % [facility] Comment: Interpretive Data Percent cell count reference ranges are not reported, since discordance with absolute values may lead to misinterpretation of CBC data. Current Interpretive Data was last revised on 2017. Eosinophil pct 4.3 % [facility] Comment: Interpretive Data Percent cell count reference ranges are not reported, since discordance with absolute values may lead to misinterpretation of CBC data. Current Interpretive Data was last revised on 2017. Myelocyte pct 0.9 % [facility] Blood 03/13/2024 4:20 AM COLD WATER MACHINE OPERATOR 03/13/2024 6:48 AM COLD WATER MACHINE OPERATOR us Donnie Erazo MD LAB BLOOD ORDERABLES Final Resul t [facility] [place] [address] * Phosphorus (03/13/2024 4:20 AM COLD WATER MACHINE OPERATOR) Pathologist [facility] Phosphorus, pl 2.3 2.3 - 4.5 mg/dL Blood 03/13/2024 4:20 AM COLD WATER MACHINE OPERATOR 03/13/2024 6:21 AM COLD WATER MACHINE OPERATOR us Donnie Erazo MD LAB BLOOD ORDERABLES Final Resul t Performing Organization Address City/[facility] Co de Phone Number [facility] [place] [address] * Magnesium (03/13/2024 4:20 AM COLD WATER MACHINE OPERATOR) Pathologist [facility] Magnesium 2.1 1.4 - 2.5 mg/dL Blood 03/13/2024 4:20 AM COLD WATER MACHINE OPERATOR 03/13/2024 6:21 AM COLD WATER MACHINE OPERATOR Donnie Erazo MD LAB BLOOD ORDERABLES Final Resul t Performing Organization Address [facility] de Phone Number [facility] [place] [address] * (ABNORMAL) Comprehensive metabolic panel (03/13/2024 4:20 AM COLD WATER MACHINE OPERATOR) Pathologist [facility] Sodium 140 135 - 145 mmol/L Potassium, pl 3.4 3.3 - 4.9 mmol/L [facility] Chloride 121(H) 97 - 110 mmol/L [facility] CO2 16(L) 22 - 32 mmol/L [facility] Anion gap 3 2 - 15 mmol/L [facility] BUN 34(H) 6 - 25 mg/dL [facility] Creatinine 0.72 0.60 - 1.10 mg/dL [facility] Glucose 131 70 - 199 mg/dL [facility] Comment: Interpretive Data Fasting glucose >/= 126 [...] Calcium 10.5(H) 8.5 - 10.3 mg/dL [facility] Bilirubin, total 0.2 0.1 - 1.2 mg/dL [facility] Protein, pl 7.0 6.5 - 8.5 g/dL [facility] Albumin 2.2(L) 3.5 - 5.0 g/dL [facility] Alk phos 121 40 - 130 Units/L [facility] ALT 27 7 - 45 Units/L [facility] AST 49(H) 10 - 45 Units/L [facility] Blood 03/13/2024 4:20 AM COLD WATER MACHINE OPERATOR 03/13/2024 6:21 AM COLD WATER MACHINE OPERATOR us Donnie Erazo MD LAB BLOOD ORDERABLES Final Resul t [facility] [place] [address] * eGFR (03/09/2024 4:00 AM COLD WATER MACHINE OPERATOR) eGFR 63 >=60 mL/min/1. 73 m2 Comment: [...] last reviewed 2020. Blood 03/09/2024 4:00 AM COLD WATER MACHINE OPERATOR 03/09/2024 7:34 AM COLD WATER MACHINE OPERATOR us Donnie Erazo MD LAB BLOOD ORDERABLES Final Resul t [facility] [place] [address] * Differential, auto (03/09/2024 4:00 AM COLD WATER MACHINE OPERATOR) Neutrophil abs 1.6 1.5 - 6.5 K/cumm Imm gran abs 0.0 0.0 - 0.1 K/cumm [facility] Lymphocyte abs 1.2 0.8 - 3.3 K/cumm [facility] Monocyte abs 0.4 0.2 - 0.8 K/cumm [facility] Eosinophil abs 0.2 0.0 - 0.5 K/cumm [facility] Basophil abs 0.0 0.0 - 0.1 K/cumm [facility] Neutrophil pct 46.7 % [facility] Comment: Interpretive Data Percent cell count reference ranges are not reported, since discordance with absolute values may lead to misinterpretation of CBC data. Current Interpretive Data was last revised on 2017. Imm gran pct 0.6 % [facility] Comment: Interpretive Data Percent cell count reference ranges are not reported, since discordance with absolute values may lead to misinterpretation of CBC data. Current Interpretive Data was last revised on 2017. Lymphocyte pct 35.7 % [facility] Comment: Interpretive Data Percent cell count reference ranges are not reported, since discordance with absolute values may lead to misinterpretation of CBC data. Current Interpretive Data was last revised on 2017. Monocyte pct 11.7 % [facility] Comment: Interpretive Data Percent cell count reference ranges are not reported, since discordance with absolute values may lead to misinterpretation of CBC data. Current Interpretive Data was last revised on 2017. Eosinophil pct 4.7 % [facility] Comment: Interpretive Data Percent cell count reference ranges are not reported, since discordance with absolute values may lead to misinterpretation of CBC data. Current Interpretive Data was last revised on 2017. Basophil pct 0.6 % [facility] Comment: Interpretive Data Percent cell count reference ranges are not reported, since discordance with absolute values may lead to misinterpretation of CBC data. Current Interpretive Data was last revised on 2017. Blood 03/09/2024 4:00 AM COLD WATER MACHINE OPERATOR 03/09/2024 7:13 AM COLD WATER MACHINE OPERATOR Donnie Erazo MD LAB BLOOD ORDERABLES Final Resul t [facility] [place] [address] * (ABNORMAL) CBC with auto differential (03/09/2024 4:00 AM COLD WATER MACHINE OPERATOR) WBC 3.4(L) 3.8 - 9.9 K/cumm Hgb 7.7(L) 11.9 - 15.5 g/dL [facility] Hct 25.6(L) 35.6 - 45.5 % [facility] Plt 136(L) 150 - 400 K/cumm [facility] MPV 10.8 9.1 - 12.3 fL [facility] RBC 2.91(L) 3.90 - 5.20 M/cumm [facility] MCV 88.0 81.3 - 96.4 fL [facility] Comment: MCV Delta, due to possible patient therapy(TPN. Confirmed per Brennan Villaseñor RN MCH 26.5(L) 27.1 - 33.3 pg [facility] MCHC 30.1(L) 32.3 - 35.7 g/dL [facility] RDW CV 19.8(H) 11.1 - 14.9 % [facility] RDW SD 62.4(H) 35.7 - 48.1 fL [facility] NRBC abs 0.00 0.00 - 0.01 K/cumm [facility] Blood 03/09/2024 4:00 AM COLD WATER MACHINE OPERATOR 03/09/2024 7:13 AM COLD WATER MACHINE OPERATOR Donnie Erazo MD LAB BLOOD ORDERABLES Edited Resu lt - Final [facility] [place] [address] * Phosphorus (03/09/2024 4:00 AM COLD WATER MACHINE OPERATOR) [facility] Phosphorus, pl 2.9 2.3 - 4.5 mg/dL Blood 03/09/2024 4:00 AM COLD WATER MACHINE OPERATOR 03/09/2024 7:12 AM COLD WATER MACHINE OPERATOR Donnie Erazo MD LAB BLOOD ORDERABLES Final Resul t Performing Organization Address [facility] de Phone Number [facility] [place] [address] * Magnesium (03/09/2024 4:00 AM COLD WATER MACHINE OPERATOR) [facility] Magnesium 1.9 1.4 - 2.5 mg/dL Blood 03/09/2024 4:00 AM COLD WATER MACHINE OPERATOR 03/09/2024 7:12 AM COLD WATER MACHINE OPERATOR Donnie Erazo MD LAB BLOOD ORDERABLES Final Resul t Performing Organization Address [facility] de Phone Number [facility] [place] [address] * (ABNORMAL) Comprehensive metabolic panel (03/09/2024 4:00 AM COLD WATER MACHINE OPERATOR) [facility] Sodium 138 135 - 145 mmol/L Potassium, pl 3.8 3.3 - 4.9 mmol/L [facility] Chloride 119(H) 97 - 110 mmol/L [facility] CO2 16(L) 22 - 32 mmol/L [facility] Anion gap 3 2 - 15 mmol/L [facility] BUN 35(H) 6 - 25 mg/dL [facility] Creatinine 0.91 0.60 - 1.10 mg/dL [facility] Glucose 119 70 - 199 mg/dL [facility] Comment: Interpretive Data Fasting glucose >/= 126 [...] 2022. Calcium 9.6 8.5 - 10.3 mg/dL [facility] Bilirubin, total 0.3 0.1 - 1.2 mg/dL [facility] Protein, pl 7.0 6.5 - 8.5 g/dL [facility] Albumin 2.0(L) 3.5 - 5.0 g/dL [facility] Alk phos 124 40 - 130 Units/L [facility] ALT 13 7 - 45 Units/L [facility] AST 24 10 - 45 Units/L [facility] Blood 03/09/2024 4:00 AM COLD WATER MACHINE OPERATOR 03/09/2024 7:12 AM COLD WATER MACHINE OPERATOR us Donnie Erazo MD LAB BLOOD ORDERABLES Final Resul t [facility] [place] [address] * eGFR (03/08/2024 12:52 PM COLD WATER MACHINE OPERATOR) eGFR 72 >=60 mL/min/1. 73 m2 Comment: [...] reviewed 2020. Blood 03/08/2024 12:5 2 PM COLD WATER MACHINE OPERATOR 03/08/2024 2:33 PM COLD WATER MACHINE OPERATOR us Donnie Erazo MD LAB BLOOD ORDERABLES Final Resul t [facility] [place] [address] * (ABNORMAL) Comprehensive metabolic panel (03/08/2024 12:52 PM COLD WATER MACHINE OPERATOR) Sodium 138 135 - 145 mmol/L Comment:Repeated and Verifie d Potassium, pl 3.8 3.3 - 4.9 mmol/L [facility] Chloride 116(H) 97 - 110 mmol/L [facility] Comment:Repeated and Verifie d CO2 17(L) 22 - 32 mmol/L [facility] Anion gap 5 2 - 15 mmol/L [facility] Comment:Repeated and Verifie d BUN 32(H) 6 - 25 mg/dL [facility] Creatinine 0.82 0.60 - 1.10 mg/dL [facility] Glucose 89 70 - 199 mg/dL [facility] Comment: Interpretive Data Fasting glucose >/= 126 [...] 2022. Calcium 9.5 8.5 - 10.3 mg/dL [facility] Bilirubin, total 0.3 0.1 - 1.2 mg/dL [facility] Protein, pl 7.2 6.5 - 8.5 g/dL [facility] Albumin 2.0(L) 3.5 - 5.0 g/dL [facility] Alk phos 136(H) 40 - 130 Units/L [facility] ALT 14 7 - 45 Units/L [facility] AST 25 10 - 45 Units/L [facility] Blood 03/08/2024 12:5 2 PM COLD WATER MACHINE OPERATOR 03/08/2024 2:22 PM COLD WATER MACHINE OPERATOR Donnie Erazo MD LAB BLOOD ORDERABLES Final Resul t Performing Organization Address City/[facility]/ZIP Co de Phone Number [facility] [place] [address] * eGFR (03/08/2024 4:00 AM COLD WATER MACHINE OPERATOR) eGFR See Comment >=60 Comment: Interpretive Data [...] last reviewed 2020. Blood 03/08/2024 4:00 AM COLD WATER MACHINE OPERATOR 03/08/2024 5:53 AM COLD WATER MACHINE OPERATOR us Donnie Erazo MD LAB BLOOD ORDERABLES Edited Resu lt - Final Performing Organization Address City/[facility]/ZIP Co de Phone Number [facility] [place] [address] * Differential, auto (03/08/2024 4:00 AM COLD WATER MACHINE OPERATOR) Neutrophil abs 2.2 1.5 - 6.5 K/cumm Imm gran abs 0.0 0.0 - 0.1 K/cumm [facility] Lymphocyte abs 1.2 0.8 - 3.3 K/cumm [facility] Monocyte abs 0.4 0.2 - 0.8 K/cumm [facility] Eosinophil abs 0.2 0.0 - 0.5 K/cumm [facility] Basophil abs 0.0 0.0 - 0.1 K/cumm [facility] Neutrophil pct 55.5 % [facility] Comment: Interpretive Data Percent cell count reference ranges are not reported, since discordance with absolute values may lead to misinterpretation of CBC data. Current Interpretive Data was last revised on 2017. Imm gran pct 0.5 % [facility] Comment: Interpretive Data Percent cell count reference ranges are not reported, since discordance with absolute values may lead to misinterpretation of CBC data. Current Interpretive Data was last revised on 2017. Lymphocyte pct 30.1 % [facility] Comment: Interpretive Data Percent cell count reference ranges are not reported, since discordance with absolute values may lead to misinterpretation of CBC data. Current Interpretive Data was last revised on 2017. Monocyte pct 9.7 % [facility] Comment: Interpretive Data Percent cell count reference ranges are not reported, since discordance with absolute values may lead to misinterpretation of CBC data. Current Interpretive Data was last revised on 2017. Eosinophil pct 3.7 % [facility] Comment: Interpretive Data Percent cell count reference ranges are not reported, since discordance with absolute values may lead to misinterpretation of CBC data. Current Interpretive Data was last revised on 2017. Basophil pct 0.5 % [facility] Comment: Interpretive Data Percent cell count reference ranges are not reported, since discordance with absolute values may lead to misinterpretation of CBC data. Current Interpretive Data was last revised on 2017. Blood 03/08/2024 4:00 AM COLD WATER MACHINE OPERATOR 03/08/2024 5:53 AM COLD WATER MACHINE OPERATOR Donnie Erazo MD LAB BLOOD ORDERABLES Final Resul t Performing Organization Address City/[facility]/ZIP Co de Phone Number [facility] [place] [address] * Critical Result Callback Chemistry (03/08/2024 4:00 AM COLD WATER MACHINE OPERATOR) [facility] Date Notified [id number] Time Not[facility] TestName Glucose [facility]ER[facility] Called/Read Back Anni MOREJON [facility] Credentials RN [facility]ER[facility] Called By ALY MOREJON [facility] Blood 03/08/2024 4:00 AM COLD WATER MACHINE OPERATOR 03/08/2024 5:53 AM COLD WATER MACHINE OPERATOR Donnie Erazo MD LAB BLOOD ORDERABLES Final Resul t Performing Organization Address [facility] de Phone Number [facility] Department [place] [address] * (ABNORMAL) CBC with auto differential (03/08/2024 4:00 AM COLD WATER MACHINE OPERATOR) [facility] WBC 4.0 3.8 - 9.9 K/cumm Hgb 7.9(L) 11.9 - 15.5 g/dL [facility] Hct 29.6(L) 35.6 - 45.5 % [facility] Plt 128(L) 150 - 400 K/cumm [facility] MPV 11.0 9.1 - 12.3 fL [facility] RBC 2.98(L) 3.90 - 5.20 M/cumm [facility] MCV 99.3(H) 81.3 - 96.4 fL [facility] MCH 26.5(L) 27.1 - 33.3 pg [facility] MCHC 26.7(L) 32.3 - 35.7 g/dL [facility] RDW CV 21.3(H) 11.1 - 14.9 % [facility] RDW SD 75.4(H) 35.7 - 48.1 fL [facility] NRBC abs 0.00 0.00 - 0.01 K/cumm [facility] Blood 03/08/2024 4:00 AM COLD WATER MACHINE OPERATOR 03/08/2024 5:53 AM COLD WATER MACHINE OPERATOR us Donnie Erazo MD LAB BLOOD ORDERABLES Final Resul t Performing Organization Address [facility] [place] [address] * (ABNORMAL) aPTT (03/08/2024 4:00 AM COLD WATER MACHINE OPERATOR) aPTT 45(H) 28 - 38 sec Comment: Interpretive Data Heparin therapeutic range: 66.0 - 100.0 seconds. Range based on correlation with therapeutic heparin activity range of 0.3 - 0.7 Units/mL. Current interpretive data was last revised on 2022. Blood 03/08/2024 4:00 AM COLD WATER MACHINE OPERATOR 03/08/2024 5:54 AM COLD WATER MACHINE OPERATOR us Donnie Erazo MD LAB BLOOD ORDERABLES Final Resul t Performing Organization Address [facility] de Phone Number [facility] [place] [address] * (ABNORMAL) Protime-INR (03/08/2024 4:00 AM COLD WATER MACHINE OPERATOR) PT 15.3(H) 9.7 - 13.0 sec INR 1.41(H) 0.90 - 1.20 [facility] Comment: Interpretive data Oral anticoagulant therapeutic ranges: Venous thromboembolism prophylaxis or treatment: 2.0-3.0 CARDIOLOGY Standard range: 2.0-3.0 High-intensity range: 2.5-3.5 Refer to indication-specific guidelines for appropriate target ranges for prosthetic heart valve replacement. Current interpretive data was last revised on 2019. Blood 03/08/2024 4:00 AM COLD WATER MACHINE OPERATOR 03/08/2024 5:54 AM COLD WATER MACHINE OPERATOR us Donnie Erazo MD LAB BLOOD ORDERABLES Final Resul t Performing Organization Address City/[facility]/ZIP Co de Phone Number [facility] [place] [address] * Magnesium (03/08/2024 4:00 AM COLD WATER MACHINE OPERATOR) Pathologist [facility] Magnesium 2.5 1.4 - 2.5 mg/dL Blood 03/08/2024 4:00 AM COLD WATER MACHINE OPERATOR 03/08/2024 5:53 AM COLD WATER MACHINE OPERATOR Donnie Erazo MD LAB BLOOD ORDERABLES Final Resul t Performing Organization Address [facility] de Phone Number [facility] One [facility] [place] [address] * Comprehensive metabolic panel (03/08/2024 4:00 AM COLD WATER MACHINE OPERATOR) [facility] Sodium See Comment 135 - 145 mmol/L Comment:Credited: Sample inv estigated and is suggestive of an improper collection (e.g., IV fluid contamination, improper tube type). Deleted at the Request of Anni COFFEY) on 03/08/2024 06:46:13 COLD WATER MACHINE OPERATOR by Miguel . Potassium, pl See Comment 3.3 - 4.9 mmol/L [facility] Comment:Credited: Sample inv estigated and is suggestive of an improper collection (e.g., IV fluid contamination, improper tube type). Deleted at the Request of Anni COFFEY) on 03/08/2024 06:46:13 COLD WATER MACHINE OPERATOR by ALY . Chloride See Comment 97 - 110 mmol/L [facility] Comment:Credited: Sample inv estigated and is suggestive of an improper collection (e.g., IV fluid contamination, improper tube type). Deleted at the Request of Anni COFFEY) on 03/08/2024 06:46:13 COLD WATER MACHINE OPERATOR by Miguel . CO2 See Comment 22 - 32 mmol/L [facility] Comment:Credited: Sample inv estigated and is suggestive of an improper collection (e.g., IV fluid contamination, improper tube type). Deleted at the Request of Anni COFFEY) on 03/08/2024 06:46:13 COLD WATER MACHINE OPERATOR by ALLYSSA . Anion gap See Comment 2 - 15 mmol/L [facility] Comment:Credited: Sample inv estigated and is suggestive of an improper collection (e.g., IV fluid contamination, improper tube type). Deleted at the Request of Anni COFFEY) on 03/08/2024 06:46:13 COLD WATER MACHINE OPERATOR by ALY . BUN See Comment 6 - 25 mg/dL [facility] Comment:Credited: Sample inv estigated and is suggestive of an improper collection (e.g., IV fluid contamination, improper tube type). Deleted at the Request of Anni COFFEY) on 03/08/2024 06:46:13 COLD WATER MACHINE OPERATOR by ALY . Creatinine See Comment 0.60 - 1.10 mg/dL [facility] Comment:Credited: Sample inv estigated and is suggestive of an improper collection (e.g., IV fluid contamination, improper tube type). Deleted at the Request of Anni COFFEY) on 03/08/2024 06:46:13 COLD WATER MACHINE OPERATOR by ALLYSSA . Glucose See Comment 70 - 199 mg/dL [facility] Comment: Credited: Sample investigated and is suggestive of an improper collection (e.g., IV fluid contamination, improper tube type). Deleted at the Request of Anni COFFEY) on 03/08/2024 06:46:13 COLD WATER MACHINE OPERATOR by Miguel . Interpretive Data Fasting glucose >/= 126 [...] Calcium See Comment 8.5 - 10.3 mg/dL [facility] Comment:Credited: Sample inv estigated and is suggestive of an improper collection (e.g., IV fluid contamination, improper tube type). Deleted at the Request of Anni COFFEY) on 03/08/2024 06:46:13 COLD WATER MACHINE OPERATOR by Miguel . Bilirubin, total See Comment 0.1 - 1.2 mg/dL [facility] Comment:Credited: Sample inv estigated and is suggestive of an improper collection (e.g., IV fluid contamination, improper tube type). Deleted at the Request of Anni COFFEY) on 03/08/2024 06:46:13 COLD WATER MACHINE OPERATOR by Miguel . Protein, pl See Comment 6.5 - 8.5 g/dL [facility] Comment:Credited: Sample inv estigated and is suggestive of an improper collection (e.g., IV fluid contamination, improper tube type). Deleted at the Request of Anni COFFEY) on 03/08/2024 06:46:13 COLD WATER MACHINE OPERATOR by Miguel . Albumin See Comment 3.5 - 5.0 g/dL [facility] Comment:Credited: Sample inv estigated and is suggestive of an improper collection (e.g., IV fluid contamination, improper tube type). Deleted at the Request of Anni COFFEY) on 03/08/2024 06:46:13 COLD WATER MACHINE OPERATOR by Miguel . Alk phos See Comment 40 - 130 Units/L [facility] Comment:Credited: Sample inv estigated and is suggestive of an improper collection (e.g., IV fluid contamination, improper tube type). Deleted at the Request of Anni COFFEY) on 03/08/2024 06:46:13 COLD WATER MACHINE OPERATOR by Miguel . ALT See Comment 7 - 45 Units/L [facility] Comment:Credited: Sample inv estigated and is suggestive of an improper collection (e.g., IV fluid contamination, improper tube type). Deleted at the Request of Anni COFFEY) on 03/08/2024 06:46:13 COLD WATER MACHINE OPERATOR by [facility] . AST See Comment 10 - 45 Units/L [facility] Comment:Credited: Sample inv estigated and is suggestive of an improper collection (e.g., IV fluid contamination, improper tube type). Deleted at the Request of Anni COFFEY) on 03/08/2024 06:46:13 COLD WATER MACHINE OPERATOR by [facility] . Blood 03/08/2024 4:00 AM COLD WATER MACHINE OPERATOR 03/08/2024 5:53 AM COLD WATER MACHINE OPERATOR us Donnie Erazo MD LAB BLOOD ORDERABLES Edited Resu lt - Final Performing Organization Address City/[facility]/ZIP Co de Phone Number [facility] [place] [address] * POCT glucose (03/07/2024 12:23 PM COLD WATER MACHINE OPERATOR) Glucose, POC 92 70 - 199 mg/dL Blood 03/07/2024 12:2 3 PM COLD WATER MACHINE OPERATOR 03/07/2024 12:23 PM COLD WATER MACHINE OPERATOR Migel Torres MD LAB POCT ORDERABLES - DEVICE F inal Result Performing Organization Address [facility] Co de Phone Number [facility] [place] [address] * CT Abdomen Pelvis W Contrast (03/07/2024 12:08 PM COLD WATER MACHINE OPERATOR) Anatomical Region Laterality Modality Body N/A Computed Tomogra phy 03/07/2024 2:58 PM COLD WATER MACHINE OPERATOR Impressions 03/07/2024 2:58 PM COLD WATER MACHINE OPERATOR 1. Interval collapse of right empyema around [...] Dallas Arthur M.D. Narrative 03/07/2024 2:58 PM COLD WATER MACHINE OPERATOR Examination: Computed tomography of the abdomen and [...] signed by: Dallas Arthur M.D. Alecia Mcgee ENVIRONMENTAL ECONOMIST IMG CT PROCEDURES Final Result * POCT glucose (03/07/2024 9:24 AM COLD WATER MACHINE OPERATOR) Glucose, POC 137 70 - 199 mg/dL Blood 03/07/2024 9:24 AM COLD WATER MACHINE OPERATOR 03/07/2024 9:24 AM COLD WATER MACHINE OPERATOR Migel Torres MD LAB POCT ORDERABLES - DEVICE F inal Result [facility] [place] [address] * POCT glucose (03/06/2024 4:50 PM COLD WATER MACHINE OPERATOR) Glucose, POC 107 70 - 199 mg/dL Blood 03/06/2024 4:50 PM COLD WATER MACHINE OPERATOR 03/06/2024 4:50 PM COLD WATER MACHINE OPERATOR Migel Torres MD LAB POCT ORDERABLES - DEVICE F inal Result [facility] [place] [address] * POCT glucose (03/06/2024 12:18 PM COLD WATER MACHINE OPERATOR) Pathologist [facility] Glucose, POC 104 70 - 199 mg/dL Blood 03/06/2024 12:1 8 PM COLD WATER MACHINE OPERATOR 03/06/2024 12:18 PM COLD WATER MACHINE OPERATOR Migel Torres MD LAB POCT ORDERABLES - DEVICE F inal Result Performing Organization Address [facility] Co de Phone Number [facility] [place] [address] * Differential, auto (03/06/2024 8:53 AM COLD WATER MACHINE OPERATOR) [facility] Neutrophil abs 2.9 1.5 - 6.5 K/cumm Imm gran abs 0.0 0.0 - 0.1 K/cumm [facility] Lymphocyte abs 1.6 0.8 - 3.3 K/cumm [facility] Monocyte abs 0.5 0.2 - 0.8 K/cumm [facility] Eosinophil abs 0.2 0.0 - 0.5 K/cumm [facility] Basophil abs 0.0 0.0 - 0.1 K/cumm [facility] Neutrophil pct 54.7 % [facility] Comment: Interpretive Data Percent cell count reference ranges are not reported, since discordance with absolute values may lead to misinterpretation of CBC data. Current Interpretive Data was last revised on 2017. Imm gran pct 0.6 % [facility] Comment: Interpretive Data Percent cell count reference ranges are not reported, since discordance with absolute values may lead to misinterpretation of CBC data. Current Interpretive Data was last revised on 2017. Lymphocyte pct 30.6 % [facility] Comment: Interpretive Data Percent cell count reference ranges are not reported, since discordance with absolute values may lead to misinterpretation of CBC data. Current Interpretive Data was last revised on 2017. Monocyte pct 9.8 % [facility] Comment: Interpretive Data Percent cell count reference ranges are not reported, since discordance with absolute values may lead to misinterpretation of CBC data. Current Interpretive Data was last revised on 2017. Eosinophil pct 3.7 % [facility] Comment: Interpretive Data Percent cell count reference ranges are not reported, since discordance with absolute values may lead to misinterpretation of CBC data. Current Interpretive Data was last revised on 2017. Basophil pct 0.6 % [facility] Comment: Interpretive Data Percent cell count reference ranges are not reported, since discordance with absolute values may lead to misinterpretation of CBC data. Current Interpretive Data was last revised on 2017. Blood 03/06/2024 8:53 AM COLD WATER MACHINE OPERATOR 03/06/2024 9:29 AM COLD WATER MACHINE OPERATOR us Migel Torres MD LAB BLOOD ORDERABLES Final Res ult [facility] [place] [address] * (ABNORMAL) CBC with auto differential (03/06/2024 8:53 AM COLD WATER MACHINE OPERATOR) WBC 5.1 3.8 - 9.9 K/cumm Hgb 8.4(L) 11.9 - 15.5 g/dL [facility] Hct 28.4(L) 35.6 - 45.5 % [facility] Plt 150 150 - 400 K/cumm [facility] MPV 10.6 9.1 - 12.3 fL [facility] RBC 3.25(L) 3.90 - 5.20 M/cumm [facility] MCV 87.4 81.3 - 96.4 fL [facility] Comment:MCV delta due to shasta arent blood transfusion. MCH 25.8(L) 27.1 - 33.3 pg [facility] MCHC 29.6(L) 32.3 - 35.7 g/dL [facility] RDW CV 19.3(H) 11.1 - 14.9 % [facility] RDW SD 59.4(H) 35.7 - 48.1 fL [facility] NRBC abs 0.00 0.00 - 0.01 K/cumm [facility] Blood 03/06/2024 8:53 AM COLD WATER MACHINE OPERATOR 03/06/2024 9:29 AM COLD WATER MACHINE OPERATOR Migel Torres MD LAB BLOOD ORDERABLES Final Res ult Performing Organization Address City/[facility] Co de Phone Number [facility] [place] [address] * POCT glucose (03/06/2024 8:38 AM COLD WATER MACHINE OPERATOR) [facility] Glucose, POC 125 70 - 199 mg/dL Blood 03/06/2024 8:38 AM COLD WATER MACHINE OPERATOR 03/06/2024 8:38 AM COLD WATER MACHINE OPERATOR Migel Torres MD LAB POCT ORDERABLES - DEVICE F inal Result Performing Organization Address [facility] de Phone Number [facility] [place] [address] * (ABNORMAL) CBC without differential (03/06/2024 5:02 AM COLD WATER MACHINE OPERATOR) [facility] WBC 3.6(L) 3.8 - 9.9 K/cumm Hgb 7.0(L) 11.9 - 15.5 g/dL [facility] Hct 24.7(L) 35.6 - 45.5 % [facility] Plt 124(L) 150 - 400 K/cumm [facility] MPV 12.2 9.1 - 12.3 fL [facility] RBC 2.29(L) 3.90 - 5.20 M/cumm [facility] MCV 107.9(H) 81.3 - 96.4 fL [facility] Comment:MCV delta due to shasta arent blood transfusion. MCH 30.6 27.1 - 33.3 pg [facility] MCHC 28.3(L) 32.3 - 35.7 g/dL [facility] RDW CV 20.6(H) 11.1 - 14.9 % [facility] RDW SD 79.8(H) 35.7 - 48.1 fL [facility] [facility] NRBC abs 0.02(H) 0.00 - 0.01 K/cumm [facility] Blood 03/06/2024 5:02 AM COLD WATER MACHINE OPERATOR 03/06/2024 5:21 AM COLD WATER MACHINE OPERATOR us Kash Sanchez MD LAB BLOOD O RDERABLES Final Result Performing Organization Address City/[facility]/ZIP Co de Phone Number [facility] [place] [address] * Transfuse RBC (03/06/2024 3:41 AM COLD WATER MACHINE OPERATOR) Blood us Roxanne Fitzgerald MD BLOOD TRANSFUSION ORDERABL ES Edited Result - Final Performing Organization Address [facility]/ZIP Co de Phone Number [facility] [place] [address] * Prepare RBC: 1 Units (03/05/2024 11:29 PM COLD WATER MACHINE OPERATOR) Product code [id number] Unit Number [id number] [facility] Product Blood Type OPOS [facility] Dispense Status PRESUMED TRANSFUSED [facility] Blood 03/05/2024 11:2 9 PM COLD WATER MACHINE OPERATOR 03/05/2024 11:29 PM COLD WATER MACHINE OPERATOR Narrative [facility] - 03/06/2024 4:00 PM COLD WATER MACHINE OPERATOR Are special requirements needed? (All products are leukoreduced and CMV- safe)- >No Date required:-[id number] LRRBC # of Strfb-0-Cbene Reasons:-Hgb <7 g/dL} us Migel Torres MD BLOOD BANK PRODUCT ORDERABLES Final Result Performing Organization Address City/[facility]/ZIP Co de Phone Number [facility]ERN[facility] [place] [address] * (ABNORMAL) eGFR (03/05/2024 10:37 PM COLD WATER MACHINE OPERATOR) Pathologist [facility] [place] eGFR 56(L) >=60 mL/min/1. 73 m2 Comment: [...] reviewed 2020. Blood 03/05/2024 10:3 7 PM COLD WATER MACHINE OPERATOR 03/05/2024 11:17 PM COLD WATER MACHINE OPERATOR us Migel Torres MD LAB BLOOD ORDERABLES Final Res ult JEAN[facility]PIERRE [facility] [place] [address] * (ABNORMAL) CBC without differential (03/05/2024 10:37 PM COLD WATER MACHINE OPERATOR) Pathologist [facility] [place] WBC 4.6 3.8 - 9.9 K/cumm Hgb 6.8(L) 11.9 - 15.5 g/dL [facility] Hct 22.9(L) 35.6 - 45.5 % [facility] Plt 142(L) 150 - 400 K/cumm [facility] MPV 11.4 9.1 - 12.3 fL [facility] RBC 2.64(L) 3.90 - 5.20 M/cumm [facility] MCV 86.7 81.3 - 96.4 fL [facility] MCH 25.8(L) 27.1 - 33.3 pg [facility] MCHC 29.7(L) 32.3 - 35.7 g/dL [facility] RDW CV 20.0(H) 11.1 - 14.9 % [facility] RDW SD 62.5(H) 35.7 - 48.1 fL [facility] NRBC abs 0.00 0.00 - 0.01 K/cumm [facility] Blood 03/05/2024 10:3 7 PM COLD WATER MACHINE OPERATOR 03/05/2024 11:17 PM COLD WATER MACHINE OPERATOR us Migel Torres MD LAB BLOOD ORDERABLES Final Res ult [facility] [place] [address] * (ABNORMAL) Basic metabolic panel (03/05/2024 10:37 PM COLD WATER MACHINE OPERATOR) Sodium 139 135 - 145 mmol/L Potassium, pl 4.0 3.3 - 4.9 mmol/L [facility] Chloride 115(H) 97 - 110 mmol/L [facility] CO2 17(L) 22 - 32 mmol/L [facility] Anion gap 7 2 - 15 mmol/L [facility] BUN 36(H) 6 - 25 mg/dL [facility] Creatinine 1.01 0.60 - 1.10 mg/dL [facility] Glucose 69(L) 70 - 199 mg/dL [facility] Comment: Interpretive Data Fasting glucose >/= 126 [...] 2022. Calcium 9.3 8.5 - 10.3 mg/dL [facility] Blood 03/05/2024 10:3 7 PM COLD WATER MACHINE OPERATOR 03/05/2024 11:17 PM COLD WATER MACHINE OPERATOR Migel Torres MD LAB BLOOD ORDERABLES Final Res ult Performing Organization Address [facility]/ZIP Co de Phone Number [facility] [place] [address] * POCT glucose (03/05/2024 8:48 PM COLD WATER MACHINE OPERATOR) Glucose, POC 101 70 - 199 mg/dL Blood 03/05/2024 8:48 PM COLD WATER MACHINE OPERATOR 03/05/2024 8:48 PM COLD WATER MACHINE OPERATOR Migel Torres MD LAB POCT ORDERABLES - DEVICE F inal Result Performing Organization Address [facility] Co de Phone Number [facility] [place] [address] * POCT glucose (03/05/2024 4:37 PM COLD WATER MACHINE OPERATOR) Glucose, POC 95 70 - 199 mg/dL Blood 03/05/2024 4:37 PM COLD WATER MACHINE OPERATOR 03/05/2024 4:37 PM COLD WATER MACHINE OPERATOR Migel Torres MD LAB POCT ORDERABLES - DEVICE F inal Result Performing Organization Address [facility] Co de Phone Number [facility] [place] [address] * POCT glucose (03/05/2024 12:05 PM COLD WATER MACHINE OPERATOR) Glucose, POC 157 70 - 199 mg/dL Blood 03/05/2024 12:0 5 PM COLD WATER MACHINE OPERATOR 03/05/2024 12:05 PM COLD WATER MACHINE OPERATOR Migel Torres MD LAB POCT ORDERABLES - DEVICE F inal Result Performing Organization Address City/[facility] Co de Phone Number JEAN-PIERRE [facility] [place] [address] * POCT glucose (03/05/2024 7:41 AM COLD WATER MACHINE OPERATOR) Glucose, POC 142 70 - 199 mg/dL Blood 03/05/2024 7:41 AM COLD WATER MACHINE OPERATOR 03/05/2024 7:41 AM COLD WATER MACHINE OPERATOR Migel Torres MD LAB POCT ORDERABLES - DEVICE F inal Result Performing Organization Address [facility] de Phone Number JEAN-PIERRE [facility] [place] [address] * (ABNORMAL) eGFR (03/05/2024 12:14 AM COLD WATER MACHINE OPERATOR) eGFR 50(L) >=60 mL/min/1. 73 m2 Comment: [...] reviewed 2020. Blood 03/05/2024 12:1 4 AM COLD WATER MACHINE OPERATOR 03/05/2024 1:48 AM COLD WATER MACHINE OPERATOR Migel Torres MD LAB BLOOD ORDERABLES Final Res ult Performing Organization Address [facility]/ZIP Co de Phone Number [facility] [place] [address] * (ABNORMAL) CBC without differential (03/05/2024 12:14 AM COLD WATER MACHINE OPERATOR) WBC 4.9 3.8 - 9.9 K/cumm Hgb 7.3(L) 11.9 - 15.5 g/dL [facility] Hct 24.6(L) 35.6 - 45.5 % [facility] Plt 141(L) 150 - 400 K/cumm [facility] MPV 11.1 9.1 - 12.3 fL [facility] RBC 2.85(L) 3.90 - 5.20 M/cumm [facility] MCV 86.3 81.3 - 96.4 fL [facility] MCH 25.6(L) 27.1 - 33.3 pg [facility] MCHC 29.7(L) 32.3 - 35.7 g/dL [facility] RDW CV 19.9(H) 11.1 - 14.9 % [facility] RDW SD 61.0(H) 35.7 - 48.1 fL [facility] NRBC abs 0.00 0.00 - 0.01 K/cumm [facility] Blood 03/05/2024 12:1 4 AM COLD WATER MACHINE OPERATOR 03/05/2024 1:09 AM COLD WATER MACHINE OPERATOR Migel Torres MD LAB BLOOD ORDERABLES Final Res ult [facility] [place] [address] * Phosphorus (03/05/2024 12:14 AM COLD WATER MACHINE OPERATOR) Phosphorus, pl 3.0 2.3 - 4.5 mg/dL Blood 03/05/2024 12:1 4 AM COLD WATER MACHINE OPERATOR 03/05/2024 1:48 AM COLD WATER MACHINE OPERATOR Migel Torres MD LAB BLOOD ORDERABLES Final Res ult Performing Organization Address City/[facility] Co de Phone Number [facility] [place] [address] * Magnesium (03/05/2024 12:14 AM COLD WATER MACHINE OPERATOR) [facility] Magnesium 2.1 1.4 - 2.5 mg/dL Blood 03/05/2024 12:1 4 AM COLD WATER MACHINE OPERATOR 03/05/2024 1:48 AM COLD WATER MACHINE OPERATOR Migel Torres MD LAB BLOOD ORDERABLES Final Res ult Performing Organization Address [facility] de Phone Number [facility] [place] [address] * (ABNORMAL) Basic metabolic panel (03/05/2024 12:14 AM COLD WATER MACHINE OPERATOR) [facility] Sodium 139 135 - 145 mmol/L Potassium, pl 3.9 3.3 - 4.9 mmol/L [facility] Chloride 114(H) 97 - 110 mmol/L [facility] CO2 19(L) 22 - 32 mmol/L [facility] Anion gap 6 2 - 15 mmol/L [facility] BUN 35(H) 6 - 25 mg/dL [facility] Creatinine 1.10 0.60 - 1.10 mg/dL [facility] Glucose 75 70 - 199 mg/dL [facility] Comment: Interpretive Data Fasting glucose >/= 126 [...] 2022. Calcium 9.6 8.5 - 10.3 mg/dL [facility] Blood 03/05/2024 12:1 4 AM COLD WATER MACHINE OPERATOR 03/05/2024 1:48 AM COLD WATER MACHINE OPERATOR Migel Torres MD LAB BLOOD ORDERABLES Final Res ult Performing Organization Address [facility] Co de Phone Number [facility] [place] [address] * POCT glucose (03/04/2024 11:30 PM COLD WATER MACHINE OPERATOR) Glucose, POC 85 70 - 199 mg/dL Blood 03/04/2024 11:3 0 PM COLD WATER MACHINE OPERATOR 03/04/2024 11:30 PM COLD WATER MACHINE OPERATOR Migel Torres MD LAB POCT ORDERABLES - DEVICE F inal Result Performing Organization Address [facility] de Phone Number [facility] [place] [address] * POCT glucose (03/04/2024 6:28 PM COLD WATER MACHINE OPERATOR) Glucose, POC 94 70 - 199 mg/dL Blood 03/04/2024 6:28 PM COLD WATER MACHINE OPERATOR 03/04/2024 6:28 PM COLD WATER MACHINE OPERATOR Migel Torres MD LAB POCT ORDERABLES - DEVICE F inal Result Performing Organization Address [facility] Co de Phone Number [facility] [place] [address] * Type and screen (03/04/2024 11:16 AM COLD WATER MACHINE OPERATOR) Sumeet, indirect Negative ABO Rh O Positive [facility] Blood 03/04/2024 11:1 6 AM COLD WATER MACHINE OPERATOR 03/04/2024 12:42 PM COLD WATER MACHINE OPERATOR Narrative [facility] - 03/04/2024 1:32 PM COLD WATER MACHINE OPERATOR Has the patient had Daratumumab or Isatuximab in the past 6 months?->Unknown Migel Torres MD LAB BLOOD BANK TEST ORDERABLES Final Result Performing Organization Address [facility] de Phone Number [facility] [place] [address] * POCT glucose (03/04/2024 11:11 AM COLD WATER MACHINE OPERATOR) Glucose, POC 157 70 - 199 mg/dL Blood 03/04/2024 11:1 1 AM COLD WATER MACHINE OPERATOR 03/04/2024 11:11 AM COLD WATER MACHINE OPERATOR Migel Torres MD LAB POCT ORDERABLES - DEVICE F inal Result Performing Organization Address [facility] de Phone Number [facility] [place] [address] * POCT glucose (03/04/2024 8:09 AM COLD WATER MACHINE OPERATOR) [facility] Glucose, POC 156 70 - 199 mg/dL Blood 03/04/2024 8:09 AM COLD WATER MACHINE OPERATOR 03/04/2024 8:09 AM COLD WATER MACHINE OPERATOR Migel Torres MD LAB POCT ORDERABLES - DEVICE F inal Result Performing Organization Address [facility] Phone Number [facility] [place] [address] * (ABNORMAL) eGFR (03/03/2024 11:18 PM COLD WATER MACHINE OPERATOR) [facility] eGFR 48(L) >=60 mL/min/1. 73 m2 Comment: [...] reviewed 2020. Blood 03/03/2024 11:1 8 PM COLD WATER MACHINE OPERATOR 03/04/2024 12:04 AM COLD WATER MACHINE OPERATOR Cassandra Farrell NP LAB BLOOD ORDERABLES Manisha jamil Result [facility] [place] [address] * (ABNORMAL) CBC without differential (03/03/2024 11:18 PM COLD WATER MACHINE OPERATOR) WBC 5.9 3.8 - 9.9 K/cumm Hgb 7.4(L) 11.9 - 15.5 g/dL [facility] Hct 24.6(L) 35.6 - 45.5 % [facility] Plt 165 150 - 400 K/cumm [facility] MPV 11.1 9.1 - 12.3 fL [facility] RBC 2.89(L) 3.90 - 5.20 M/cumm [facility] MCV 85.1 81.3 - 96.4 fL [facility] MCH 25.6(L) 27.1 - 33.3 pg [facility] MCHC 30.1(L) 32.3 - 35.7 g/dL [facility] RDW CV 19.6(H) 11.1 - 14.9 % [facility] RDW SD 60.3(H) 35.7 - 48.1 fL [facility] NRBC abs 0.00 0.00 - 0.01 K/cumm [facility] Blood 03/03/2024 11:1 8 PM COLD WATER MACHINE OPERATOR 03/04/2024 12:04 AM COLD WATER MACHINE OPERATOR Cassandra Philippeo ENVIRONMENTAL ECONOMIST LAB BLOOD ORDERABLES Manisha l Result Performing Organization Address [facility] Co de Phone Number [facility] [place] [address] * Phosphorus (03/03/2024 11:18 PM COLD WATER MACHINE OPERATOR) [facility] Phosphorus, pl 3.0 2.3 - 4.5 mg/dL Blood 03/03/2024 11:1 8 PM COLD WATER MACHINE OPERATOR 03/04/2024 12:04 AM COLD WATER MACHINE OPERATOR Result [facility] LAB BLOOD ORDERABLES Manisha l Result Performing Organization Address [facility] Co de Phone Number [facility] [place] [address] * Magnesium (03/03/2024 11:18 PM COLD WATER MACHINE OPERATOR) [facility] Magnesium 2.2 1.4 - 2.5 mg/dL Blood 03/03/2024 11:1 8 PM COLD WATER MACHINE OPERATOR 03/04/2024 12:04 AM COLD WATER MACHINE OPERATOR Result [facility]andra [facility] LAB BLOOD ORDERABLES Manisha l Result Performing Organization Address [facility] [place] [address] * (ABNORMAL) Basic metabolic panel (03/03/2024 11:18 PM COLD WATER MACHINE OPERATOR) [facility] Sodium 138 135 - 145 mmol/L Potassium, pl 3.9 3.3 - 4.9 mmol/L [facility] Chloride 111(H) 97 - 110 mmol/L [facility] CO2 22 22 - 32 mmol/L [facility] Anion gap 5 2 - 15 mmol/L [facility] BUN 34(H) 6 - 25 mg/dL [facility] Creatinine 1.15(H) 0.60 - 1.10 mg/dL [facility] Glucose 78 70 - 199 mg/dL [facility] Comment: Interpretive Data Fasting glucose >/= 126 [...] 2022. Calcium 9.1 8.5 - 10.3 mg/dL [facility] Blood 03/03/2024 11:1 8 PM COLD WATER MACHINE OPERATOR 03/04/2024 12:04 AM COLD WATER MACHINE OPERATOR Cassandra Farrell NP LAB BLOOD ORDERABLES Manisha l Result [facility] [place] [address] * POCT glucose (03/03/2024 9:06 PM COLD WATER MACHINE OPERATOR) Glucose, POC 82 70 - 199 mg/dL Blood 03/03/2024 9:06 PM COLD WATER MACHINE OPERATOR 03/03/2024 9:06 PM COLD WATER MACHINE OPERATOR Migel Torres MD LAB POCT ORDERABLES - DEVICE F inal Result [facility] [place] [address] * POCT glucose (03/03/2024 5:08 PM COLD WATER MACHINE OPERATOR) Glucose, POC 105 70 - 199 mg/dL Blood 03/03/2024 5:08 PM COLD WATER MACHINE OPERATOR 03/03/2024 5:08 PM COLD WATER MACHINE OPERATOR Migel Torres MD LAB POCT ORDERABLES - DEVICE F inal Result Performing Organization Address [facility] de Phone Number [facility] [place] [address] * POCT glucose (03/03/2024 11:46 AM COLD WATER MACHINE OPERATOR) Glucose, POC 147 70 - 199 mg/dL Blood 03/03/2024 11:4 6 AM COLD WATER MACHINE OPERATOR 03/03/2024 11:46 AM COLD WATER MACHINE OPERATOR us Migel Torres MD LAB POCT ORDERABLES - DEVICE F inal Result Performing Organization Address [facility] de Phone Number [facility] [place] [address] * POCT glucose (03/03/2024 8:48 AM COLD WATER MACHINE OPERATOR) Glucose, POC 150 70 - 199 mg/dL Blood 03/03/2024 8:48 AM COLD WATER MACHINE OPERATOR 03/03/2024 8:48 AM COLD WATER MACHINE OPERATOR Migel Torres MD LAB POCT ORDERABLES - DEVICE F inal Result Performing Organization Address [facility] [place] [address] * POCT glucose (03/02/2024 9:09 PM COLD WATER MACHINE OPERATOR) Glucose, POC 80 70 - 199 mg/dL Blood 03/02/2024 9:09 PM COLD WATER MACHINE OPERATOR 03/02/2024 9:09 PM COLD WATER MACHINE OPERATOR Migel Torres MD LAB POCT ORDERABLES - DEVICE F inal Result Performing Organization Address [facility] de Phone Number [facility] [place] [address] * (ABNORMAL) eGFR (03/02/2024 9:08 PM COLD WATER MACHINE OPERATOR) [facility] eGFR 50(L) >=60 mL/min/1. 73 m2 Comment: [...] last reviewed 2020. Blood 03/02/2024 9:08 PM COLD WATER MACHINE OPERATOR 03/02/2024 10:00 PM COLD WATER MACHINE OPERATOR Cassandra Farrell NP LAB BLOOD ORDERABLES Manisha l Result Performing Organization Address [facility] de Phone Number JEAN-PIERRE [facility] [place] [address] * (ABNORMAL) CBC without differential (03/02/2024 9:08 PM COLD WATER MACHINE OPERATOR) [facility] WBC 6.7 3.8 - 9.9 K/cumm Hgb 7.7(L) 11.9 - 15.5 g/dL [facility] Hct 25.6(L) 35.6 - 45.5 % [facility] Plt 162 150 - 400 K/cumm [facility] MPV 11.4 9.1 - 12.3 fL [facility] RBC 3.03(L) 3.90 - 5.20 M/cumm [facility] MCV 84.5 81.3 - 96.4 fL [facility] MCH 25.4(L) 27.1 - 33.3 pg [facility] MCHC 30.1(L) 32.3 - 35.7 g/dL [facility] RDW CV 19.7(H) 11.1 - 14.9 % [facility] RDW SD 58.6(H) 35.7 - 48.1 fL [facility] NRBC abs 0.00 0.00 - 0.01 K/cumm [facility] Blood 03/02/2024 9:08 PM COLD WATER MACHINE OPERATOR 03/02/2024 9:42 PM COLD WATER MACHINE OPERATOR Cassandra Farrell ENVIRONMENTAL ECONOMIST LAB BLOOD ORDERABLES Manisha l Result Performing Organization Address [facility] Co de Phone Number [facility] Department [place] [address] * Phosphorus (03/02/2024 9:08 PM COLD WATER MACHINE OPERATOR) Phosphorus, pl 3.3 2.3 - 4.5 mg/dL Blood 03/02/2024 9:08 PM COLD WATER MACHINE OPERATOR 03/02/2024 9:42 PM COLD WATER MACHINE OPERATOR Cassandra Farrell ENVIRONMENTAL ECONOMIST LAB BLOOD ORDERABLES Manisha l Result Performing Organization Address City/[facility] Co de Phone Number [facility] [place] [address] * Magnesium (03/02/2024 9:08 PM COLD WATER MACHINE OPERATOR) Magnesium 2.3 1.4 - 2.5 mg/dL Blood 03/02/2024 9:08 PM COLD WATER MACHINE OPERATOR 03/02/2024 9:42 PM COLD WATER MACHINE OPERATOR Cassandra Farrell ENVIRONMENTAL ECONOMIST LAB BLOOD ORDERABLES Manisha l Result [facility] [place] [address] * (ABNORMAL) Basic metabolic panel (03/02/2024 9:08 PM COLD WATER MACHINE OPERATOR) Sodium 136 135 - 145 mmol/L Potassium, pl 4.1 3.3 - 4.9 mmol/L [facility] Chloride 108 97 - 110 mmol/L [facility] CO2 25 22 - 32 mmol/L [facility] Anion gap 3 2 - 15 mmol/L [facility] BUN 31(H) 6 - 25 mg/dL [facility] Creatinine 1.11(H) 0.60 - 1.10 mg/dL [facility] Glucose 85 70 - 199 mg/dL [facility] Comment: Interpretive Data Fasting glucose >/= 126 [...] 2022. Calcium 8.6 8.5 - 10.3 mg/dL [facility] Blood 03/02/2024 9:08 PM COLD WATER MACHINE OPERATOR 03/02/2024 9:42 PM COLD WATER MACHINE OPERATOR Cassandra Farrell NP LAB BLOOD ORDERABLES Manisha l Result Performing Organization Address [facility]/ZIP Co de Phone Number [facility] [place] [address] * XR Chest 1 View (03/02/2024 6:42 PM COLD WATER MACHINE OPERATOR) Anatomical Region Laterality Modality Body, Chest N/A Computed Radiogr aphy 03/03/2024 7:09 AM COLD WATER MACHINE OPERATOR Impressions 03/03/2024 7:09 AM COLD WATER MACHINE OPERATOR Comparison 03/02/2024 10:16 AM. Tracheostomy tube remains [...] Manny Wolfe M.D. Narrative 03/03/2024 7:09 AM COLD WATER MACHINE OPERATOR EXAMINATION: 1 view chest radiograph Procedure Note [...] Result * POCT glucose (03/02/2024 4:35 PM COLD WATER MACHINE OPERATOR) Glucose, POC 96 70 - 199 mg/dL Blood 03/02/2024 4:35 PM COLD WATER MACHINE OPERATOR 03/02/2024 4:35 PM COLD WATER MACHINE OPERATOR us Migel Torres MD LAB POCT ORDERABLES - DEVICE F inal Result [facility] [place] [address] * POCT glucose (03/02/2024 12:33 PM COLD WATER MACHINE OPERATOR) Glucose, POC 133 70 - 199 mg/dL Blood 03/02/2024 12:3 3 PM COLD WATER MACHINE OPERATOR 03/02/2024 12:33 PM COLD WATER MACHINE OPERATOR Migel Torres MD LAB POCT ORDERABLES - DEVICE F inal Result Performing Organization Address [facility] Co de Phone Number [facility] [place] [address] * C. difficile testing Stool (03/02/2024 11:17 AM COLD WATER MACHINE OPERATOR) [facility] Result Negative Negative Toxin Result Negative Negative [facility] C. diff result Negative, free toxin Negative, free toxin [facility] C. diff interp Negative for toxigenic Clostridioides (Clostridium) difficile. Analysis was performed using a glutamate dehydrogenase antigen detection assay combined with a C. difficile toxin detection assay. [facility] Stool 03/02/2024 11:1 7 AM COLD WATER MACHINE OPERATOR 03/02/2024 1:56 PM COLD WATER MACHINE OPERATOR Migel Torres MD LAB MICROBIOLOGY - GENERAL ORD ERABLES Final Result Performing Organization Address [facility] [place] [address] * Infection Prevention VRE Culture Stool (03/02/2024 11:17 AM COLD WATER MACHINE OPERATOR) Report Final Report: Negative Stool 03/02/2024 11:1 7 AM COLD WATER MACHINE OPERATOR 03/02/2024 2:11 PM COLD WATER MACHINE OPERATOR Narrative [facility] - 03/04/2024 3:53 PM COLD WATER MACHINE OPERATOR Surveillance culture for Infection Prevention purposes only; results indicate colonization, not infection requiring treatment. Testing performed by [facility] ([phone]). Migel Torres MD LAB MICROBIOLOGY - GENERAL ORD ERABLES Final Result Performing Organization Address [facility] Co de Phone Number [facility] [place] [address] * XR Chest 1 View (03/02/2024 10:26 AM COLD WATER MACHINE OPERATOR) Anatomical Region Laterality Modality Body, Chest N/A Computed Radiogr aphy 03/02/2024 11:3 6 AM COLD WATER MACHINE OPERATOR Impressions 03/02/2024 12:02 PM COLD WATER MACHINE OPERATOR The current study is compared with the [...] Valarie Gibson M.D. Narrative 03/02/2024 12:02 PM COLD WATER MACHINE OPERATOR EXAMINATION: 1 view chest radiograph Procedure Note [...] esult * POCT glucose (03/02/2024 8:21 AM COLD WATER MACHINE OPERATOR) [facility] Glucose, POC 152 70 - 199 mg/dL Blood 03/02/2024 8:21 AM COLD WATER MACHINE OPERATOR 03/02/2024 8:21 AM COLD WATER MACHINE OPERATOR us Migel Torres MD LAB POCT ORDERABLES - DEVICE F inal Result Performing Organization Address [facility] Co de Phone Number JEAN-PIERRE [facility] [place] [address] * (ABNORMAL) eGFR (03/02/2024 12:06 AM COLD WATER MACHINE OPERATOR) eGFR 48(L) >=60 mL/min/1. 73 m2 Comment: [...] reviewed 2020. Blood 03/02/2024 12:0 6 AM COLD WATER MACHINE OPERATOR 03/02/2024 1:16 AM COLD WATER MACHINE OPERATOR us Meche Logan NP LAB BLOOD ORDERABLES Final Res ult Performing Organization Address [facility]/ZIP Co de Phone Number JEAN-PIERRE [facility] Department [place] [address] * (ABNORMAL) CBC without differential (03/02/2024 12:06 AM COLD WATER MACHINE OPERATOR) WBC 7.4 3.8 - 9.9 K/cumm Hgb 8.0(L) 11.9 - 15.5 g/dL [facility] Hct 26.4(L) 35.6 - 45.5 % [facility] Plt 173 150 - 400 K/cumm [facility] MPV 10.3 9.1 - 12.3 fL [facility] RBC 3.17(L) 3.90 - 5.20 M/cumm [facility] MCV 83.3 81.3 - 96.4 fL [facility] MCH 25.2(L) 27.1 - 33.3 pg [facility] MCHC 30.3(L) 32.3 - 35.7 g/dL [facility] RDW CV 19.3(H) 11.1 - 14.9 % [facility] RDW SD 58.1(H) 35.7 - 48.1 fL [facility] NRBC abs 0.00 0.00 - 0.01 K/cumm [facility] Blood 03/02/2024 12:0 6 AM COLD WATER MACHINE OPERATOR 03/02/2024 1:16 AM COLD WATER MACHINE OPERATOR Meche Logan ENVIRONMENTAL ECONOMIST LAB BLOOD ORDERABLES Final Res ult Performing Organization Address City/[facility] Co de Phone Number [facility] [place] [address] * Phosphorus (03/02/2024 12:06 AM COLD WATER MACHINE OPERATOR) [facility] Phosphorus, pl 3.8 2.3 - 4.5 mg/dL Blood 03/02/2024 12:0 6 AM COLD WATER MACHINE OPERATOR 03/02/2024 1:16 AM COLD WATER MACHINE OPERATOR Meche Logan ENVIRONMENTAL ECONOMIST LAB BLOOD ORDERABLES Final Res ult [facility] [place] [address] * Magnesium (03/02/2024 12:06 AM COLD WATER MACHINE OPERATOR) Magnesium 2.3 1.4 - 2.5 mg/dL Blood 03/02/2024 12:0 6 AM COLD WATER MACHINE OPERATOR 03/02/2024 1:16 AM COLD WATER MACHINE OPERATOR Meche Logan ENVIRONMENTAL ECONOMIST LAB BLOOD ORDERABLES Final Res ult Performing Organization Address [facility] Co de Phone Number [facility] Department [place] [address] * (ABNORMAL) Basic metabolic panel (03/02/2024 12:06 AM COLD WATER MACHINE OPERATOR) Pathologist [facility] Sodium 137 135 - 145 mmol/L Potassium, pl 4.2 3.3 - 4.9 mmol/L [facility] Chloride 105 97 - 110 mmol/L [facility] CO2 27 22 - 32 mmol/L [facility] Anion gap 5 2 - 15 mmol/L [facility] BUN 30(H) 6 - 25 mg/dL [facility] Creatinine 1.14(H) 0.60 - 1.10 mg/dL [facility] Glucose 90 70 - 199 mg/dL [facility] Comment: Interpretive Data Fasting glucose >/= 126 [...] 2022. Calcium 8.7 8.5 - 10.3 mg/dL [facility] Blood 03/02/2024 12:0 6 AM COLD WATER MACHINE OPERATOR 03/02/2024 1:16 AM COLD WATER MACHINE OPERATOR Meche Logan ENVIRONMENTAL ECONOMIST LAB BLOOD ORDERABLES Final Res ult Performing Organization Address [facility] Co de Phone Number [facility]ER [facility] [place] [address] * POCT glucose (03/01/2024 8:18 PM COLD WATER MACHINE OPERATOR) Glucose, POC 107 70 - 199 mg/dL Blood 03/01/2024 8:18 PM COLD WATER MACHINE OPERATOR 03/01/2024 8:18 PM COLD WATER MACHINE OPERATOR Migel Torres MD LAB POCT ORDERABLES - DEVICE F inal Result Performing Organization Address [facility] [place] [address] * POCT glucose (03/01/2024 6:39 PM COLD WATER MACHINE OPERATOR) Glucose, POC 118 70 - 199 mg/dL Blood 03/01/2024 6:39 PM COLD WATER MACHINE OPERATOR 03/01/2024 6:39 PM COLD WATER MACHINE OPERATOR Migel Torres MD LAB POCT ORDERABLES - DEVICE F inal Result Performing Organization Address [facility] [place] [address] * IR Abscess Tube Exchange (03/01/2024 12:40 PM COLD WATER MACHINE OPERATOR) Anatomical Region Laterality Modality Body N/A X-Ray Angiograph y 03/01/2024 2:01 PM COLD WATER MACHINE OPERATOR Impressions 03/02/2024 1:04 PM COLD WATER MACHINE OPERATOR 1. Stable right pleural fluid collection. The [...] questions arise, please contact us by calling [phone]. Dictated by: Roxanne Perez MD, PhD. The radiology attending physician has personally reviewed this study, and had reviewed and/or edited this written report and agrees with it. Electronically signed by: Aman Calabrese M.D. Narrative 03/02/2024 1:04 PM COLD WATER MACHINE OPERATOR EXAMINATION: DRAINAGE CATHETER EVALUATION, TPA INJECTION, AND [...] minutes. TECHNIQUE: Prior to beginning the procedure, [place] Protocol was used to confirm the patient's identity and planned procedure. Fluoroscopy time has been recorded in the electronic medical record. Maximum sterile barriers including cap, mask, hand hygiene, sterile gloves, sterile gown, large sterile drape and 2% chlorhexidine for cutaneous antisepsis were used. After obtaining a quarter seamer image, the right chest catheter was injected with dilute contrast and multiple diagnostic fluoroscopic spot images were obtained. The skin overlying the collection was sterilely prepped, draped and infiltrated with 1% buffered lidocaine. The existing 12-Ethiopian catheter was then exchanged over a Bentson guidewire for a new 12-Ethiopian catheter. Limited contrast injection confirmed appropriate placement [...] infiltrated with 1% buffered lidocaine. The existing 10-Ethiopian cope loop catheter was then exchanged over a Bentson guidewire for a new 12-Ethiopian catheter. Limited contrast injection confirmed appropriate placement [...] minutes. TECHNIQUE: Prior to beginning the procedure, [place] Protocol was used to confirm the patient's identity and planned procedure. Fluoroscopy time has been recorded in the electronic medical record. Maximum sterile barriers including cap, mask, hand hygiene, sterile gloves, sterile gown, large sterile drape and 2% chlorhexidine for cutaneous antisepsis were used. After obtaining a quarter seamer image, the right chest catheter was injected with dilute contrast and multiple diagnostic fluoroscopic spot images were obtained. The skin overlying the collection was sterilely prepped, draped and infiltrated with 1% buffered lidocaine. The existing 12-Ethiopian catheter was then exchanged over a Bentson guidewire for a new 12-Ethiopian catheter. Limited contrast injection confirmed appropriate placement [...] infiltrated with 1% buffered lidocaine. The existing 10-Ethiopian cope loop catheter was then exchanged over a Bentson guidewire for a new 12-Ethiopian catheter. Limited contrast injection confirmed appropriate placement [...] questions arise, please contact us by calling [phone]. Dictated by: Roxanne Perez MD, PhD. The radiology attending physician has personally reviewed this study, and had reviewed and/or edited this written report and agrees with it. Electronically signed by: Aman Calabrese M.D. us Cassandra Farrell NP IMG IR PROCEDURES Final R esult * (ABNORMAL) eGFR (02/29/2024 10:12 PM COLD WATER MACHINE OPERATOR) eGFR 58(L) >=60 mL/min/1. 73 m2 Comment: [...] reviewed 2020. Blood 02/29/2024 10:1 2 PM COLD WATER MACHINE OPERATOR 02/29/2024 10:37 PM COLD WATER MACHINE OPERATOR us Migel Torres MD LAB BLOOD ORDERABLES Final Res ult [facility] [place] [address] * (ABNORMAL) CBC without differential (02/29/2024 10:12 PM COLD WATER MACHINE OPERATOR) WBC 8.2 3.8 - 9.9 K/cumm Hgb 8.5(L) 11.9 - 15.5 g/dL [facility] Hct 27.2(L) 35.6 - 45.5 % [facility] Plt 178 150 - 400 K/cumm [facility] MPV 10.2 9.1 - 12.3 fL [facility] RBC 3.32(L) 3.90 - 5.20 M/cumm [facility] MCV 81.9 81.3 - 96.4 fL [facility] MCH 25.6(L) 27.1 - 33.3 pg [facility] MCHC 31.3(L) 32.3 - 35.7 g/dL [facility] RDW CV 19.0(H) 11.1 - 14.9 % [facility] RDW SD 55.7(H) 35.7 - 48.1 fL [facility] NRBC abs 0.00 0.00 - 0.01 K/cumm [facility] Blood 02/29/2024 10:1 2 PM COLD WATER MACHINE OPERATOR 02/29/2024 10:38 PM COLD WATER MACHINE OPERATOR Migel Torres MD LAB BLOOD ORDERABLES Final Res ult Performing Organization Address [facility] Co de Phone Number [facility] [place] [address] * Phosphorus (02/29/2024 10:12 PM COLD WATER MACHINE OPERATOR) Phosphorus, pl 3.1 2.3 - 4.5 mg/dL Blood 02/29/2024 10:1 2 PM COLD WATER MACHINE OPERATOR 02/29/2024 10:37 PM COLD WATER MACHINE OPERATOR Migel Torres MD LAB BLOOD ORDERABLES Final Res ult Performing Organization Address [facility] Co de Phone Number [facility] [place] [address] * Magnesium (02/29/2024 10:12 PM COLD WATER MACHINE OPERATOR) Magnesium 2.4 1.4 - 2.5 mg/dL Blood 02/29/2024 10:1 2 PM COLD WATER MACHINE OPERATOR 02/29/2024 10:37 PM COLD WATER MACHINE OPERATOR Result [facility] Migel Torres MD LAB BLOOD ORDERABLES Final Res ult Performing Organization Address [facility] [place] [address] * (ABNORMAL) Hepatic function panel (02/29/2024 10:12 PM COLD WATER MACHINE OPERATOR) Bilirubin, total 0.3 0.1 - 1.2 mg/dL Bilirubin, direct <0.2 0.1 - 0.3 mg/dL [facility] Protein, pl 7.4 6.5 - 8.5 g/dL [facility] Albumin 1.9(L) 3.5 - 5.0 g/dL [facility] Alk phos 183(H) 40 - 130 Units/L [facility] ALT 18 7 - 45 Units/L [facility] AST 38 10 - 45 Units/L [facility] Blood 02/29/2024 10:1 2 PM COLD WATER MACHINE OPERATOR 02/29/2024 10:37 PM COLD WATER MACHINE OPERATOR Migel Torres MD LAB BLOOD ORDERABLES Final Res ult [facility] [place] [address] * (ABNORMAL) Basic metabolic panel (02/29/2024 10:12 PM COLD WATER MACHINE OPERATOR) Sodium 139 135 - 145 mmol/L Potassium, pl 4.8 3.3 - 4.9 mmol/L [facility] Chloride 106 97 - 110 mmol/L [facility] CO2 27 22 - 32 mmol/L [facility] Anion gap 6 2 - 15 mmol/L [facility] BUN 26(H) 6 - 25 mg/dL [facility] Creatinine 0.98 0.60 - 1.10 mg/dL [facility] Glucose 87 70 - 199 mg/dL [facility] Comment: Interpretive Data Fasting glucose >/= 126 [...] 2022. Calcium 8.7 8.5 - 10.3 mg/dL [facility] Blood 02/29/2024 10:1 2 PM COLD WATER MACHINE OPERATOR 02/29/2024 10:37 PM COLD WATER MACHINE OPERATOR Migel Torres MD LAB BLOOD ORDERABLES Final Res ult [facility] [place] [address] * POCT glucose (02/29/2024 8:47 PM COLD WATER MACHINE OPERATOR) Glucose, POC 118 70 - 199 mg/dL Blood 02/29/2024 8:47 PM COLD WATER MACHINE OPERATOR 02/29/2024 8:47 PM COLD WATER MACHINE OPERATOR Migel Torres MD LAB POCT ORDERABLES - DEVICE F inal Result Performing Organization Address [facility] Co de Phone Number JEAN-PIERRE NUGENT [facility] [place] [address] * CT Chest Abdomen Pelvis W Contrast (02/29/2024 5:24 PM COLD WATER MACHINE OPERATOR) Anatomical Region Laterality Modality Body N/A Computed Tomogra phy 03/01/2024 9:19 AM COLD WATER MACHINE OPERATOR Impressions 03/01/2024 2:08 PM COLD WATER MACHINE OPERATOR 1. Interval placement of right chest tube [...] Ulloa M.D., Ph.D Narrative 03/01/2024 2:08 PM COLD WATER MACHINE OPERATOR EXAMINATION: Computed tomography of the chest, abdomen [...] Result * POCT glucose (02/29/2024 4:58 PM COLD WATER MACHINE OPERATOR) [facility] Glucose, POC 124 70 - 199 mg/dL Blood 02/29/2024 4:58 PM COLD WATER MACHINE OPERATOR 02/29/2024 4:58 PM COLD WATER MACHINE OPERATOR Migel Torres MD LAB POCT ORDERABLES - DEVICE F inal Result Performing Organization Address [facility] Phone Number [facility] [place] [address] * POCT glucose (02/29/2024 12:21 PM COLD WATER MACHINE OPERATOR) Glucose, POC 123 70 - 199 mg/dL Blood 02/29/2024 12:2 1 PM COLD WATER MACHINE OPERATOR 02/29/2024 12:21 PM COLD WATER MACHINE OPERATOR Migel Torres MD LAB POCT ORDERABLES - DEVICE F inal Result Performing Organization Address [facility] de Phone Number [facility] [place] [address] * POCT glucose (02/29/2024 8:23 AM COLD WATER MACHINE OPERATOR) Glucose, POC 123 70 - 199 mg/dL Blood 02/29/2024 8:23 AM COLD WATER MACHINE OPERATOR 02/29/2024 8:23 AM COLD WATER MACHINE OPERATOR Migel Torres MD LAB POCT ORDERABLES - DEVICE F inal Result Performing Organization Address [facility] Phone Number [facility] [place] [address] * eGFR (02/28/2024 9:37 PM COLD WATER MACHINE OPERATOR) eGFR 62 >=60 mL/min/1. 73 m2 Comment: [...] last reviewed 2020. Blood 02/28/2024 9:37 PM COLD WATER MACHINE OPERATOR 02/28/2024 9:53 PM COLD WATER MACHINE OPERATOR us Migel Torres MD LAB BLOOD ORDERABLES Final Res ult [facility] [place] [address] * (ABNORMAL) CBC without differential (02/28/2024 9:37 PM COLD WATER MACHINE OPERATOR) WBC 7.4 3.8 - 9.9 K/cumm Hgb 7.9(L) 11.9 - 15.5 g/dL [facility] Hct 25.9(L) 35.6 - 45.5 % [facility] Plt 170 150 - 400 K/cumm [facility] MPV 9.5 9.1 - 12.3 fL [facility] RBC 3.12(L) 3.90 - 5.20 M/cumm [facility] MCV 83.0 81.3 - 96.4 fL [facility] MCH 25.3(L) 27.1 - 33.3 pg [facility] MCHC 30.5(L) 32.3 - 35.7 g/dL [facility] RDW CV 19.0(H) 11.1 - 14.9 % [facility] RDW SD 56.6(H) 35.7 - 48.1 fL [facility] NRBC abs 0.00 0.00 - 0.01 K/cumm [facility] Blood 02/28/2024 9:37 PM COLD WATER MACHINE OPERATOR 02/28/2024 9:54 PM COLD WATER MACHINE OPERATOR Migel Torres MD LAB BLOOD ORDERABLES Final Res ult Performing Organization Address [facility] de Phone Number [facility] [place] [address] * Phosphorus (02/28/2024 9:37 PM COLD WATER MACHINE OPERATOR) [facility] Phosphorus, pl 3.0 2.3 - 4.5 mg/dL Blood 02/28/2024 9:37 PM COLD WATER MACHINE OPERATOR 02/28/2024 9:53 PM COLD WATER MACHINE OPERATOR Migel Torres MD LAB BLOOD ORDERABLES Final Res ult Performing Organization Address [facility] de Phone Number [facility] Department [place] [address] * Magnesium (02/28/2024 9:37 PM COLD WATER MACHINE OPERATOR) [facility] Magnesium 2.2 1.4 - 2.5 mg/dL Blood 02/28/2024 9:37 PM COLD WATER MACHINE OPERATOR 02/28/2024 9:53 PM COLD WATER MACHINE OPERATOR Migel Torres MD LAB BLOOD ORDERABLES Final Res ult Performing Organization Address [facility] [place] [address] * (ABNORMAL) Basic metabolic panel (02/28/2024 9:37 PM COLD WATER MACHINE OPERATOR) [facility] Sodium 141 135 - 145 mmol/L Potassium, pl 4.3 3.3 - 4.9 mmol/L [facility] Chloride 109 97 - 110 mmol/L [facility] CO2 27 22 - 32 mmol/L [facility] Anion gap 5 2 - 15 mmol/L [facility] BUN 25 6 - 25 mg/dL [facility] Creatinine 0.93 0.60 - 1.10 mg/dL [facility] Glucose 114 70 - 199 mg/dL [facility] Comment: Interpretive Data Fasting glucose >/= 126 [...] 2022. Calcium 8.4(L) 8.5 - 10.3 mg/dL [facility] Blood 02/28/2024 9:37 PM COLD WATER MACHINE OPERATOR 02/28/2024 9:53 PM COLD WATER MACHINE OPERATOR Migel Torres MD LAB BLOOD ORDERABLES Final Res ult [facility] [place] [address] * POCT glucose (02/28/2024 8:33 PM COLD WATER MACHINE OPERATOR) Glucose, POC 122 70 - 199 mg/dL Blood 02/28/2024 8:33 PM COLD WATER MACHINE OPERATOR 02/28/2024 8:33 PM COLD WATER MACHINE OPERATOR Migel Torres MD LAB POCT ORDERABLES - DEVICE F inal Result [facility] [place] [address] * POCT glucose (02/28/2024 4:38 PM COLD WATER MACHINE OPERATOR) Glucose, POC 125 70 - 199 mg/dL Blood 02/28/2024 4:38 PM COLD WATER MACHINE OPERATOR 02/28/2024 4:38 PM COLD WATER MACHINE OPERATOR Migel Torres MD LAB POCT ORDERABLES - DEVICE F inal Result Performing Organization Address [facility] Co de Phone Number [facility] [place] [address] * POCT glucose (02/28/2024 12:59 PM COLD WATER MACHINE OPERATOR) Glucose, POC 173 70 - 199 mg/dL Blood 02/28/2024 12:5 9 PM COLD WATER MACHINE OPERATOR 02/28/2024 12:59 PM COLD WATER MACHINE OPERATOR us Migel Torres MD LAB POCT ORDERABLES - DEVICE F inal Result Performing Organization Address [facility] de Phone Number [facility] [place] [address] * POCT glucose (02/28/2024 11:42 AM COLD WATER MACHINE OPERATOR) Glucose, POC 155 70 - 199 mg/dL Blood 02/28/2024 11:4 2 AM COLD WATER MACHINE OPERATOR 02/28/2024 11:42 AM COLD WATER MACHINE OPERATOR us Migel Torres MD LAB POCT ORDERABLES - DEVICE F inal Result Performing Organization Address [facility] de Phone Number [facility] [place] [address] * POCT glucose (02/28/2024 7:54 AM COLD WATER MACHINE OPERATOR) Glucose, POC 131 70 - 199 mg/dL Blood 02/28/2024 7:54 AM COLD WATER MACHINE OPERATOR 02/28/2024 7:54 AM COLD WATER MACHINE OPERATOR Migel Torres MD LAB POCT ORDERABLES - DEVICE F inal Result Performing Organization Address [facility] [place] [address] * POCT glucose (02/27/2024 8:39 PM COLD WATER MACHINE OPERATOR) Glucose, POC 141 70 - 199 mg/dL Blood 02/27/2024 8:39 PM COLD WATER MACHINE OPERATOR 02/27/2024 8:39 PM COLD WATER MACHINE OPERATOR Migel Torres MD LAB POCT ORDERABLES - DEVICE F inal Result Performing Organization Address City/[facility] [place] [address] * POCT glucose (02/27/2024 4:35 PM COLD WATER MACHINE OPERATOR) Glucose, POC 149 70 - 199 mg/dL Blood 02/27/2024 4:35 PM COLD WATER MACHINE OPERATOR 02/27/2024 4:35 PM COLD WATER MACHINE OPERATOR Migel Torres MD LAB POCT ORDERABLES - DEVICE F inal Result Performing Organization Address City/[facility] [place] [address] * POCT glucose (02/27/2024 11:44 AM COLD WATER MACHINE OPERATOR) Glucose, POC 155 70 - 199 mg/dL Blood 02/27/2024 11:4 4 AM COLD WATER MACHINE OPERATOR 02/27/2024 11:44 AM COLD WATER MACHINE OPERATOR Migel Torres MD LAB POCT ORDERABLES - DEVICE F inal Result Performing Organization Address [facility] [place] [address] * XR Chest 1 View (02/27/2024 8:10 AM COLD WATER MACHINE OPERATOR) Anatomical Region Laterality Modality Body, Chest N/A Computed Radiogr aphy 02/27/2024 10:0 9 AM COLD WATER MACHINE OPERATOR Impressions 02/27/2024 10:09 AM COLD WATER MACHINE OPERATOR Comparison is made to 02/21/2022. There is [...] Dallas Arthur M.D. Narrative 02/27/2024 10:09 AM COLD WATER MACHINE OPERATOR EXAMINATION: 1 view chest radiograph Procedure Note [...] Result * POCT glucose (02/27/2024 7:55 AM COLD WATER MACHINE OPERATOR) Glucose, POC 154 70 - 199 mg/dL Blood 02/27/2024 7:55 AM COLD WATER MACHINE OPERATOR 02/27/2024 7:55 AM COLD WATER MACHINE OPERATOR Migel Torres MD LAB POCT ORDERABLES - DEVICE F inal Result Performing Organization Address City/State/[facility] de Phone Number [facility] [place] [address] * (ABNORMAL) eGFR (02/26/2024 9:45 PM COLD WATER MACHINE OPERATOR) Pathologist [facility] [place] eGFR 53(L) >=60 mL/min/1. 73 m2 Comment: [...] last reviewed 2020. Blood 02/26/2024 9:45 PM COLD WATER MACHINE OPERATOR 02/27/2024 1:50 AM COLD WATER MACHINE OPERATOR us Brijesh Flores MD LAB BLOOD ORDERABLES Final Result Performing Organization Address [facility] Co de Phone Number JEAN-PIERRE [facility] [place] [address] * (ABNORMAL) CBC without differential (02/26/2024 9:45 PM COLD WATER MACHINE OPERATOR) Pathologist [facility] [place] WBC 6.1 3.8 - 9.9 K/cumm Hgb 8.1(L) 11.9 - 15.5 g/dL [facility] Hct 26.1(L) 35.6 - 45.5 % [facility] Plt 192 150 - 400 K/cumm [facility] MPV 9.5 9.1 - 12.3 fL [facility] RBC 3.17(L) 3.90 - 5.20 M/cumm [facility] MCV 82.3 81.3 - 96.4 fL [facility] MCH 25.6(L) 27.1 - 33.3 pg [facility] MCHC 31.0(L) 32.3 - 35.7 g/dL [facility] RDW CV 19.1(H) 11.1 - 14.9 % [facility] RDW SD 57.0(H) 35.7 - 48.1 fL [facility] NRBC abs 0.00 0.00 - 0.01 K/cumm [facility] Blood 02/26/2024 9:45 PM COLD WATER MACHINE OPERATOR 02/27/2024 1:50 AM COLD WATER MACHINE OPERATOR us Brijesh Flores MD LAB BLOOD ORDERABLES Final Result Performing Organization Address [facility] de Phone Number [facility] [place] [address] * Phosphorus (02/26/2024 9:45 PM COLD WATER MACHINE OPERATOR) Phosphorus, pl 4.2 2.3 - 4.5 mg/dL Blood 02/26/2024 9:45 PM COLD WATER MACHINE OPERATOR 02/27/2024 1:50 AM COLD WATER MACHINE OPERATOR us Monisha Alonso MD LAB BLOOD ORDERABLES Final Resul t Performing Organization Address [facility] de Phone Number [facility] [place] [address] * Magnesium (02/26/2024 9:45 PM COLD WATER MACHINE OPERATOR) Magnesium 2.1 1.4 - 2.5 mg/dL Blood 02/26/2024 9:45 PM COLD WATER MACHINE OPERATOR 02/27/2024 1:50 AM COLD WATER MACHINE OPERATOR Monisha Alonso MD LAB BLOOD ORDERABLES Final Resul t Performing Organization Address City/[facility] de Phone Number [facility] [place] [address] * (ABNORMAL) Basic metabolic panel (02/26/2024 9:45 PM COLD WATER MACHINE OPERATOR) Sodium 144 135 - 145 mmol/L Potassium, pl 3.6 3.3 - 4.9 mmol/L [facility] Chloride 114(H) 97 - 110 mmol/L [facility] CO2 24 22 - 32 mmol/L [facility] Anion gap 6 2 - 15 mmol/L [facility] BUN 25 6 - 25 mg/dL [facility] Creatinine 1.05 0.60 - 1.10 mg/dL [facility] Glucose 152 70 - 199 mg/dL [facility] Comment: Interpretive Data Fasting glucose >/= 126 [...] 2022. Calcium 9.0 8.5 - 10.3 mg/dL [facility] Blood 02/26/2024 9:45 PM COLD WATER MACHINE OPERATOR 02/27/2024 1:50 AM COLD WATER MACHINE OPERATOR Brijesh Flores MD LAB BLOOD ORDERABLES Final Result [facility] [place] [address] * POCT glucose (02/26/2024 8:33 PM COLD WATER MACHINE OPERATOR) Glucose, POC 159 70 - 199 mg/dL Blood 02/26/2024 8:33 PM COLD WATER MACHINE OPERATOR 02/26/2024 8:33 PM COLD WATER MACHINE OPERATOR Migel Torres MD LAB POCT ORDERABLES - DEVICE F inal Result Performing Organization Address City/[facility] Co de Phone Number [facility] [place] [address] * POCT glucose (02/26/2024 5:56 PM COLD WATER MACHINE OPERATOR) Glucose, POC 156 70 - 199 mg/dL Blood 02/26/2024 5:56 PM COLD WATER MACHINE OPERATOR 02/26/2024 5:56 PM COLD WATER MACHINE OPERATOR Migel Torres MD LAB POCT ORDERABLES - DEVICE F inal Result Performing Organization Address [facility] [place] [address] * (ABNORMAL) POCT glucose (02/26/2024 12:10 PM COLD WATER MACHINE OPERATOR) Glucose, POC 247(H) 70 - 199 mg/dL Blood 02/26/2024 12:1 0 PM COLD WATER MACHINE OPERATOR 02/26/2024 12:10 PM COLD WATER MACHINE OPERATOR Migel Torres MD LAB POCT ORDERABLES - DEVICE F inal Result Performing Organization Address [facility] Co de Phone Number [facility] [place] [address] * POCT glucose (02/26/2024 7:47 AM COLD WATER MACHINE OPERATOR) Glucose, POC 180 70 - 199 mg/dL Blood 02/26/2024 7:47 AM COLD WATER MACHINE OPERATOR 02/26/2024 7:47 AM COLD WATER MACHINE OPERATOR Migel Torres MD LAB POCT ORDERABLES - DEVICE F inal Result Performing Organization Address City/[facility] Co de Phone Number [facility] [place] [address] * (ABNORMAL) eGFR (02/25/2024 11:37 PM COLD WATER MACHINE OPERATOR) Pathologist [facility] [place] eGFR 47(L) >=60 mL/min/1. 73 m2 Comment: [...] reviewed 2020. Blood 02/25/2024 11:3 7 PM COLD WATER MACHINE OPERATOR 02/25/2024 11:58 PM COLD WATER MACHINE OPERATOR us Brijesh Flores MD LAB BLOOD ORDERABLES Final Result [facility] [place] [address] * (ABNORMAL) CBC without differential (02/25/2024 11:37 PM COLD WATER MACHINE OPERATOR) [facility] WBC 6.0 3.8 - 9.9 K/cumm Hgb 8.8(L) 11.9 - 15.5 g/dL [facility] Hct 28.1(L) 35.6 - 45.5 % [facility] Plt 215 150 - 400 K/cumm [facility] MPV 9.2 9.1 - 12.3 fL [facility] RBC 3.46(L) 3.90 - 5.20 M/cumm [facility] MCV 81.2(L) 81.3 - 96.4 fL [facility] MCH 25.4(L) 27.1 - 33.3 pg [facility] MCHC 31.3(L) 32.3 - 35.7 g/dL [facility] RDW CV 19.1(H) 11.1 - 14.9 % [facility] RDW SD 56.0(H) 35.7 - 48.1 fL [facility] NRBC abs 0.00 0.00 - 0.01 K/cumm [facility] Blood 02/25/2024 11:3 7 PM COLD WATER MACHINE OPERATOR 02/25/2024 11:58 PM COLD WATER MACHINE OPERATOR us Brijesh Flores MD LAB BLOOD ORDERABLES Final Result Performing Organization Address City/[facility] Co de Phone Number [facility] [place] [address] * Phosphorus (02/25/2024 11:37 PM COLD WATER MACHINE OPERATOR) Phosphorus, pl 2.6 2.3 - 4.5 mg/dL Blood 02/25/2024 11:3 7 PM COLD WATER MACHINE OPERATOR 02/25/2024 11:58 PM COLD WATER MACHINE OPERATOR Mnoisha Alonso MD LAB BLOOD ORDERABLES Final Resul t Performing Organization Address [facility] Co de Phone Number [facility] [place] [address] * Magnesium (02/25/2024 11:37 PM COLD WATER MACHINE OPERATOR) Magnesium 1.8 1.4 - 2.5 mg/dL Blood 02/25/2024 11:3 7 PM COLD WATER MACHINE OPERATOR 02/25/2024 11:58 PM COLD WATER MACHINE OPERATOR Monisha Alonso MD LAB BLOOD ORDERABLES Final Resul t Performing Organization Address City/[facility] Co de Phone Number [facility] [place] [address] * (ABNORMAL) Basic metabolic panel (02/25/2024 11:37 PM COLD WATER MACHINE OPERATOR) Pathologist [facility] [place] Sodium 143 135 - 145 mmol/L Potassium, pl 3.6 3.3 - 4.9 mmol/L [facility] Chloride 115(H) 97 - 110 mmol/L [facility] CO2 21(L) 22 - 32 mmol/L [facility] Anion gap 7 2 - 15 mmol/L [facility] BUN 24 6 - 25 mg/dL [facility] Creatinine 1.16(H) 0.60 - 1.10 mg/dL [facility] Glucose 159 70 - 199 mg/dL [facility] Comment: Interpretive Data Fasting glucose >/= 126 [...] 2022. Calcium 9.4 8.5 - 10.3 mg/dL [facility] Blood 02/25/2024 11:3 7 PM COLD WATER MACHINE OPERATOR 02/25/2024 11:58 PM COLD WATER MACHINE OPERATOR Brijesh Flores MD LAB BLOOD ORDERABLES Final Result [facility] [place] [address] * (ABNORMAL) POCT glucose (02/25/2024 8:54 PM COLD WATER MACHINE OPERATOR) Glucose, POC 207(H) 70 - 199 mg/dL Blood 02/25/2024 8:54 PM COLD WATER MACHINE OPERATOR 02/25/2024 8:54 PM COLD WATER MACHINE OPERATOR us Migel Torres MD LAB POCT ORDERABLES - DEVICE F inal Result Performing Organization Address [facility] de Phone Number [facility] [place] [address] * (ABNORMAL) POCT glucose (02/25/2024 4:41 PM COLD WATER MACHINE OPERATOR) Glucose, POC 223(H) 70 - 199 mg/dL Blood 02/25/2024 4:41 PM COLD WATER MACHINE OPERATOR 02/25/2024 4:41 PM COLD WATER MACHINE OPERATOR Migel Torres MD LAB POCT ORDERABLES - DEVICE F inal Result Performing Organization Address [facility] de Phone Number [facility] [place] [address] * POCT glucose (02/25/2024 2:42 PM COLD WATER MACHINE OPERATOR) Glucose, POC 196 70 - 199 mg/dL Blood 02/25/2024 2:42 PM COLD WATER MACHINE OPERATOR 02/25/2024 2:42 PM COLD WATER MACHINE OPERATOR Migel Torres MD LAB POCT ORDERABLES - DEVICE F inal Result Performing Organization Address [facility] de Phone Number [facility] [place] [address] * Image Guided Drainage Peritoneal or Retroperitoneal Fluid Collection (02/25/2024 1:44 PM COLD WATER MACHINE OPERATOR) Anatomical Region Laterality Modality Body N/A X-Ray Angiograph y 02/25/2024 2:15 PM COLD WATER MACHINE OPERATOR Impressions 02/26/2024 9:15 AM COLD WATER MACHINE OPERATOR Successful image guided drainage of perihepatic collection. PLAN: This tube should not be flushed with saline. Dictated by: Rolly Cunningham M.D. The radiology attending physician has personally reviewed this study, and had reviewed and/or edited this written report and agrees with it. Electronically signed by: Aman Calabrese M.D. Narrative 02/26/2024 9:15 AM COLD WATER MACHINE OPERATOR EXAMINATION: PERCUTANEOUS DRAINAGE (STD) HISTORY/INDICATION: 83 yr [...] was obtained. Prior to beginning the procedure, [place] Protocol was used to confirm the patient's [...] the tract to 10 Fr. A 10 Ethiopian [place] loop drainage catheter was then advanced over [...] was obtained. Prior to beginning the procedure, [place] Protocol was used to confirm the patient's [...] the tract to 10 Fr. A 10 Ethiopian [place] loop drainage catheter was then advanced over [...] stain Abscess Hepatic drain (02/25/2024 1:40 PM COLD WATER MACHINE OPERATOR) Direct Specimen Exam Stain: Abundant polymorphonuclear leukocytes seen. Rare Gram Negative Bacilli Report Final Report: Moderate Pseudomonas aeruginosa Moderate Citrobacter koseri Few Mixed Gram-positive and Gram-negative microorganisms (.) [facility] Organism PSEUDOMONAS AERUGINOSA [facility] Organism MIXED GRAM POS AND GRAM NEG MICROORGANISMS [facility] Organism CITROBACTER KOSERI [facility] Abscess (Hepatic drain) 02/25/2024 1:40 PM COLD WATER MACHINE OPERATOR 02/25/2024 3:02 PM COLD WATER MACHINE OPERATOR Narrative [facility] - 02/29/2024 2:16 PM COLD WATER MACHINE OPERATOR From drain placed 02/25/24 Testing performed by [facility] ([phone]) Specimens submitted from normally sterile body sites [...] MICROBIOLOGY - GENERA L ORDERABLES Final Result [facility] [place] [address] * (ABNORMAL) POCT glucose (02/25/2024 6:45 AM COLD WATER MACHINE OPERATOR) Glucose, POC 212(H) 70 - 199 mg/dL Blood 02/25/2024 6:45 AM COLD WATER MACHINE OPERATOR 02/25/2024 6:45 AM COLD WATER MACHINE OPERATOR Migel Torres MD LAB POCT ORDERABLES - DEVICE F inal Result Performing Organization Address [facility] Co de Phone Number [place] [address] * POCT glucose (02/25/2024 12:48 AM COLD WATER MACHINE OPERATOR) Glucose, POC 191 70 - 199 mg/dL Blood 02/25/2024 12:4 8 AM COLD WATER MACHINE OPERATOR 02/25/2024 12:48 AM COLD WATER MACHINE OPERATOR Migel Torres MD LAB POCT ORDERABLES - DEVICE F inal Result Performing Organization Address [facility] de Phone Number [facility] [place] [address] * (ABNORMAL) eGFR (02/24/2024 10:21 PM COLD WATER MACHINE OPERATOR) eGFR 38(L) >=60 mL/min/1. 73 m2 Comment: [...] reviewed 2020. Blood 02/24/2024 10:2 1 PM COLD WATER MACHINE OPERATOR 02/24/2024 10:46 PM COLD WATER MACHINE OPERATOR us Brijesh Flores MD LAB BLOOD ORDERABLES Final Result Performing Organization Address City/[facility]/ZIP Co de Phone Number [facility] [place] [address] * (ABNORMAL) CBC without differential (02/24/2024 10:21 PM COLD WATER MACHINE OPERATOR) WBC 7.1 3.8 - 9.9 K/cumm Hgb 10.0(L) 11.9 - 15.5 g/dL [facility] Hct 31.5(L) 35.6 - 45.5 % [facility] Plt 232 150 - 400 K/cumm [facility] MPV 8.6(L) 9.1 - 12.3 fL [facility] RBC 3.92 3.90 - 5.20 M/cumm [facility] MCV 80.4(L) 81.3 - 96.4 fL [facility] MCH 25.5(L) 27.1 - 33.3 pg [facility] MCHC 31.7(L) 32.3 - 35.7 g/dL [facility] RDW CV 19.0(H) 11.1 - 14.9 % [facility] RDW SD 55.4(H) 35.7 - 48.1 fL [facility] NRBC abs 0.00 0.00 - 0.01 K/cumm [facility] Blood 02/24/2024 10:2 1 PM COLD WATER MACHINE OPERATOR 02/24/2024 10:46 PM COLD WATER MACHINE OPERATOR us Brijesh Flores MD LAB BLOOD ORDERABLES Final Result Performing Organization Address City/[facility]/ZIP Co de Phone Number [facility] [place] [address] * Phosphorus (02/24/2024 10:21 PM COLD WATER MACHINE OPERATOR) [facility] Phosphorus, pl 2.9 2.3 - 4.5 mg/dL Blood 02/24/2024 10:2 1 PM COLD WATER MACHINE OPERATOR 02/24/2024 10:46 PM COLD WATER MACHINE OPERATOR Monisha Alonso MD LAB BLOOD ORDERABLES Final Resul t Performing Organization Address [facility] Co de Phone Number [facility] [place] [address] * Magnesium (02/24/2024 10:21 PM COLD WATER MACHINE OPERATOR) [facility] Magnesium 1.5 1.4 - 2.5 mg/dL Blood 02/24/2024 10:2 1 PM COLD WATER MACHINE OPERATOR 02/24/2024 10:46 PM COLD WATER MACHINE OPERATOR Monisha Alonso MD LAB BLOOD ORDERABLES Final Resul t Performing Organization Address [facility] de Phone Number [facility] Department [place] [address] * (ABNORMAL) Basic metabolic panel (02/24/2024 10:21 PM COLD WATER MACHINE OPERATOR) [facility] Sodium 141 135 - 145 mmol/L Potassium, pl 3.7 3.3 - 4.9 mmol/L [facility] Chloride 114(H) 97 - 110 mmol/L [facility] CO2 20(L) 22 - 32 mmol/L [facility] Anion gap 7 2 - 15 mmol/L [facility] BUN 27(H) 6 - 25 mg/dL [facility] Creatinine 1.39(H) 0.60 - 1.10 mg/dL [facility] Glucose 121 70 - 199 mg/dL [facility] Comment: Interpretive Data Fasting glucose >/= 126 [...] 2022. Calcium 9.9 8.5 - 10.3 mg/dL [facility] Blood 02/24/2024 10:2 1 PM COLD WATER MACHINE OPERATOR 02/24/2024 10:46 PM COLD WATER MACHINE OPERATOR Brijesh Flores MD LAB BLOOD ORDERABLES Final Result Performing Organization Address City/[facility]/ZIP Co de Phone Number [facility] [place] [address] * POCT glucose (02/24/2024 5:55 PM COLD WATER MACHINE OPERATOR) [facility] Glucose, POC 119 70 - 199 mg/dL Blood 02/24/2024 5:55 PM COLD WATER MACHINE OPERATOR 02/24/2024 5:55 PM COLD WATER MACHINE OPERATOR Migel Torres MD LAB POCT ORDERABLES - DEVICE F inal Result Performing Organization Address City/[facility]/ZIP Co de Phone Number [facility] [place] [address] * (ABNORMAL) Aerobic and anaerobic culture and gram stain Pleural fluid Lobe, right upper (:13 PM COLD WATER MACHINE OPERATOR) Pathologist [facility] [place] Direct Specimen Exam Stain: Cytospin Gram stain shows: Abundant polymorphonuclear leukocytes seen. Other cellular material present. No organisms seen. Report Final Report: Few Pseudomonas aeruginosa (.) [facility] Organism PSEUDOMONAS AERUGINOSA [facility] Pleural fluid (Lobe, right upper) 02/24/2024 1:13 PM COLD WATER MACHINE OPERATOR 02/24/2024 2:49 PM COLD WATER MACHINE OPERATOR Narrative [facility] - 03/02/2024 8:58 AM COLD WATER MACHINE OPERATOR Testing performed by [facility] ([phone]) Specimens submitted from normally sterile body sites [...] Aileen Santizo MD PhD LAB MICROBIOLOGY - [facility] ORDERABLES Final Result [facility] [place] [address] * IR Chest Drainage With Imaging Right (02/24/2024 1:05 PM COLD WATER MACHINE OPERATOR) Anatomical Region Laterality Modality Chest Right X-Ray Angiograph y 02/24/2024 1:25 PM COLD WATER MACHINE OPERATOR Impressions 02/24/2024 1:25 PM COLD WATER MACHINE OPERATOR Successful right percutaneous chest tube placement with imaging guidance (12 Ethiopian locking loop multipurpose drainage catheter). PLAN: 1. [...] Interventional Radiology to follow. Electronically signed by: MD Kunal Lopez 02/24/2024 1:25 PM COLD WATER MACHINE OPERATOR EXAMINATION: PERCUTANEOUS CHEST TUBE PLACEMENT (RIGHT) HISTORY/INDICATION: [...] was obtained. Prior to beginning the procedure, [place] Protocol was used to confirm the patient's [...] the tract to 12 Fr. A 12 Ethiopian multipurpose drainage catheter was then advanced over [...] was obtained. Prior to beginning the procedure, [place] Protocol was used to confirm the patient's [...] the tract to 12 Fr. A 12 Ethiopian multipurpose drainage catheter was then advanced over [...] chest tube placement with imaging guidance (12 Ethiopian locking loop multipurpose drainage catheter). PLAN: 1. [...] follow. Electronically signed by: Aileen Santizo MD [facility] Tam CUEVAS IMG IR PROCEDURES Final Result * (ABNORMAL) CBC without differential (02/24/2024 10:06 AM COLD WATER MACHINE OPERATOR) WBC 7.9 3.8 - 9.9 K/cumm Hgb 9.2(L) 11.9 - 15.5 g/dL [facility] Hct 29.3(L) 35.6 - 45.5 % [facility] Plt 245 150 - 400 K/cumm [facility] MPV 9.7 9.1 - 12.3 fL [facility] RBC 3.59(L) 3.90 - 5.20 M/cumm [facility] MCV 81.6 81.3 - 96.4 fL [facility] MCH 25.6(L) 27.1 - 33.3 pg [facility] MCHC 31.4(L) 32.3 - 35.7 g/dL [facility] RDW CV 18.4(H) 11.1 - 14.9 % [facility] RDW SD 54.6(H) 35.7 - 48.1 fL [facility] NRBC abs 0.00 0.00 - 0.01 K/cumm [facility] Blood 02/24/2024 10:0 6 AM COLD WATER MACHINE OPERATOR 02/24/2024 10:17 AM COLD WATER MACHINE OPERATOR Narrative [facility] - 02/24/2024 10:25 AM COLD WATER MACHINE OPERATOR 1 hour after transfusion of Red Blood Cells is complete. us Roxanne Fitzgerald MD LAB BLOOD ORDERABLES Final Result [facility] [place] [address] * Prepare RBC: 1 Units (02/24/2024 5:32 AM COLD WATER MACHINE OPERATOR) Product code [id number] Unit Number [id number] [facility] Product Blood Type OPOS [facility] Dispense Status PRESUMED TRANSFUSED [facility] Blood 02/24/2024 5:32 AM COLD WATER MACHINE OPERATOR 02/24/2024 5:32 AM COLD WATER MACHINE OPERATOR Narrative [facility] - 02/24/2024 8:01 PM COLD WATER MACHINE OPERATOR Are special requirements needed? (All products are leukoreduced and CMV- safe)- >No Date required:-[id number] LRRBC # of [id number] Reasons:-Hgb <7 g/dL} us Roxanne Fitzgerald MD BLOOD BANK PRODUCT ORDERAB LES Final Result Performing Organization Address [facility]/ZIP Co de Phone Number [facility] [place] [address] * Type and screen (02/24/2024 2:29 AM COLD WATER MACHINE OPERATOR) ABO Rh O Positive S[place], indirect Negative [facility] Blood 02/24/2024 2:29 AM COLD WATER MACHINE OPERATOR 02/24/2024 2:58 AM COLD WATER MACHINE OPERATOR Narrative [facility] - 02/24/2024 5:17 AM COLD WATER MACHINE OPERATOR Has the patient had Daratumumab or Isatuximab in the past 6 months?->Unknown us Roxanne Fitzgerald MD LAB BLOOD BANK TEST ORDERA BLES Final Result Performing Organization Address [facility] Co de Phone Number [facility] [place] [address] * CT Chest W Contrast (02/23/2024 10:41 PM COLD WATER MACHINE OPERATOR) Anatomical Region Laterality Modality Body N/A Computed Tomogra phy 02/23/2024 11:2 5 PM COLD WATER MACHINE OPERATOR Impressions 02/24/2024 5:50 AM COLD WATER MACHINE OPERATOR 1. Decreased size of the previously large [...] Cornelia Pierce M.D. Narrative 02/24/2024 5:50 AM COLD WATER MACHINE OPERATOR EXAMINATION: Computed tomography of the chest with [...] Result * (ABNORMAL) eGFR (02/23/2024 9:08 PM COLD WATER MACHINE OPERATOR) eGFR 24(L) >=60 mL/min/1. 73 m2 Comment: [...] last reviewed 2020. Blood 02/23/2024 9:08 PM COLD WATER MACHINE OPERATOR 02/23/2024 9:33 PM COLD WATER MACHINE OPERATOR Brijesh Flores MD LAB BLOOD ORDERABLES Final Result Performing Organization Address City/[facility]/ZIP Co de Phone Number [facility] [place] [address] * (ABNORMAL) CBC without differential (02/23/2024 9:08 PM COLD WATER MACHINE OPERATOR) WBC 10.1(H) 3.8 - 9.9 K/cumm Hgb 6.7(L) 11.9 - 15.5 g/dL [facility] Comment:Hemoglobin delta due to surgical procedure. Hct 21.7(L) 35.6 - 45.5 % [facility] Plt 230 150 - 400 K/cumm [facility] MPV 9.5 9.1 - 12.3 fL [facility] RBC 2.65(L) 3.90 - 5.20 M/cumm [facility] MCV 81.9 81.3 - 96.4 fL [facility] MCH 25.3(L) 27.1 - 33.3 pg [facility] MCHC 30.9(L) 32.3 - 35.7 g/dL [facility] RDW CV 19.4(H) 11.1 - 14.9 % [facility] RDW SD 57.5(H) 35.7 - 48.1 fL [facility] NRBC abs 0.00 0.00 - 0.01 K/cumm [facility] Blood 02/23/2024 9:08 PM COLD WATER MACHINE OPERATOR 02/23/2024 9:33 PM COLD WATER MACHINE OPERATOR us Brijesh Flores MD LAB BLOOD ORDERABLES Final Result Performing Organization Address City/[facility]/ZIP Co de Phone Number [facility] [place] [address] * Vancomycin level random (02/23/2024 9:08 PM COLD WATER MACHINE OPERATOR) Vancomycin random 10.2 mcg/mL Comment: Interpretive Data No reference ranges have been established for random drug levels. Current Interpretive Data was last revised on 2020. Blood 02/23/2024 9:08 PM COLD WATER MACHINE OPERATOR 02/23/2024 9:28 PM COLD WATER MACHINE OPERATOR us Roxanne Fitzgerald MD LAB BLOOD ORDERABLES Final Result [facility] [place] [address] * (ABNORMAL) Basic metabolic panel (02/23/2024 9:08 PM COLD WATER MACHINE OPERATOR) Pathologist [facility] [place] Sodium 138 135 - 145 mmol/L Potassium, pl 4.1 3.3 - 4.9 mmol/L [facility] Chloride 111(H) 97 - 110 mmol/L [facility] CO2 18(L) 22 - 32 mmol/L [facility] Anion gap 9 2 - 15 mmol/L [facility] BUN 36(H) 6 - 25 mg/dL [facility] Creatinine 2.02(H) 0.60 - 1.10 mg/dL [facility] Glucose 80 70 - 199 mg/dL [facility] Comment: Interpretive Data Fasting glucose >/= 126 [...] 2022. Calcium 10.0 8.5 - 10.3 mg/dL [facility] Blood 02/23/2024 9:08 PM COLD WATER MACHINE OPERATOR 02/23/2024 9:28 PM COLD WATER MACHINE OPERATOR us Brijesh Flores MD LAB BLOOD ORDERABLES Final Result Performing Organization Address City/[facility]/ZIP Co de Phone Number [facility] [place] [address] * (ABNORMAL) Urinalysis reflex to microscopic (02/23/2024 11:11 AM COLD WATER MACHINE OPERATOR) Color, ur Yellow Yellow Clarity, ur Clear Clear [facility] Specific gravity, ur 1.032(H) 1.003 - 1.030 [facility] pH, urine 6.0 [facility] Comment: Interpretive Data U rine pH is affected by diet, medications, systemic acid-base disturbances, and renal tubular function. pH may affect urinary stone formation. For example, urine pH below 6.0 may help reduce the tendency for calcium phosphate stones and pH greater than 6.0 may reduce the tendency for uric acid stone formation. Source: [facility] Current Interpretive Data was last revised on 2017 Protein, ur ql 1+(A) Negative [facility] Glucose, ur ql Negative Negative [facility] Ketones, ur Negative Negative [facility] Bilirubin, ur Negative Negative [facility] Blood, ur Trace(A) Negative [facility] Urobilinogen, ur <2.0 <2.0 mg/dL [facility] Nitrite, ur Negative Negative [facility] Leukocyte esterase, ur 3+(A) Negative [facility] UA reflex comment Reflex to microscopic UA will be performed. [facility] Urine 02/23/2024 11:1 1 AM COLD WATER MACHINE OPERATOR 02/23/2024 11:19 AM COLD WATER MACHINE OPERATOR us Chester Cifuentes MD LAB URINE ORDERABLES Final R esult Performing Organization Address [facility]/ZIP Co de Phone Number [facility] Department [place] [address] * (ABNORMAL) Urinalysis, microscopic only (02/23/2024 11:11 AM COLD WATER MACHINE OPERATOR) WBC, ur 11-20(A) 0 - 5 /HPF RBC, ur 3-5(A) 0 - 2 /HPF [facility] Epithelial cells, squamous, ur 1-5 0 - 5 /HPF [facility] Mucous, ur Present(A) [facility] Hyaline casts, ur 1-5 0 - 10 /LPF [facility] Urine 02/23/2024 11:1 1 AM COLD WATER MACHINE OPERATOR 02/23/2024 11:19 AM COLD WATER MACHINE OPERATOR Chester Cifuentes MD LAB URINE ORDERABLES Final R esult [facility] [place] [address] * Blood culture Blood Peripheral (02/23/2024 9:58 AM COLD WATER MACHINE OPERATOR) Report Final Report: No growth Blood (Peripheral) 02/23/2024 9:58 AM COLD WATER MACHINE OPERATOR 02/23/2024 10:15 AM COLD WATER MACHINE OPERATOR Narrative [facility] - 02/27/2024 12:00 PM COLD WATER MACHINE OPERATOR From a different site than #1. Draw [...] performance characteristics have been verified by the [facility] Microbiology Laboratory. For questions about this culture, contact the Microbiology Laboratory at [phone]. Interpretive data was last revised on 23. Miranda Turcios MD LAB MICROBIOLOGY - GENERAL ORDER [place] Final Result Performing Organization Address City/[facility]/ZIP Co de Phone Number [facility] Department [place] [address] * Blood culture Blood Peripheral (02/23/2024 9:58 AM COLD WATER MACHINE OPERATOR) Report Final Report: No growth Blood (Peripheral) 02/23/2024 9:58 AM COLD WATER MACHINE OPERATOR 02/23/2024 10:16 AM COLD WATER MACHINE OPERATOR Narrative [facility] - 02/27/2024 12:00 PM COLD WATER MACHINE OPERATOR Draw Blood cultures before administration of Antibiotics [...] performance characteristics have been verified by the [facility] Microbiology Laboratory. For questions about this culture, contact the Microbiology Laboratory at [phone]. Interpretive data was last revised on 23. Miranda Turcios MD LAB MICROBIOLOGY - GENERAL ORDER [place] Final Result Performing Organization Address City/[facility]/ZIP Co de Phone Number [facility] [place] [address] * POCT lactate (02/23/2024 12:01 AM COLD WATER MACHINE OPERATOR) Lactate POC i-STAT 1.4 0.7 - 2.2 mmol/L Blood 02/23/2024 12:0 1 AM COLD WATER MACHINE OPERATOR 02/23/2024 12:01 AM COLD WATER MACHINE OPERATOR us Chester Cifuentes MD LAB POCT ORDERABLES - DEVICE Final Result Performing Organization Address [facility] de Phone Number [facility] [place] [address] * POCT glucose (02/22/2024 11:59 PM COLD WATER MACHINE OPERATOR) Glucose, POC 95 70 - 199 mg/dL Blood 02/22/2024 11:5 9 PM COLD WATER MACHINE OPERATOR 02/22/2024 11:59 PM COLD WATER MACHINE OPERATOR us Chester Cifuentes MD LAB POCT ORDERABLES - DEVICE Final Result Performing Organization Address [facility] Phone Number [facility] [place] [address] * CT Abdomen Pelvis W Contrast (02/22/2024 10:57 PM COLD WATER MACHINE OPERATOR) Anatomical Region Laterality Modality Body N/A Computed Tomogra phy 02/22/2024 11:2 0 PM COLD WATER MACHINE OPERATOR Impressions 02/23/2024 9:05 AM COLD WATER MACHINE OPERATOR 1. New pleural thickening and enhancement adjacent [...] Indio Chavez M.D. Narrative 02/23/2024 9:05 AM COLD WATER MACHINE OPERATOR EXAMINATION: CT ABDOMEN PELVIS W CONTRAST HISTORY: [...] and agrees with it. Electronically signed by: Vincent Nilay Mellnick, M.D. us Emiliano Louise MD IMG CT PROCEDURES Final Result * (ABNORMAL) eGFR (02/22/2024 8:41 PM COLD WATER MACHINE OPERATOR) Pathologist [facility] [place] eGFR 17(L) >=60 mL/min/1. 73 m2 Comment: [...] last reviewed 2020. Blood 02/22/2024 8:41 PM COLD WATER MACHINE OPERATOR 02/22/2024 8:49 PM COLD WATER MACHINE OPERATOR us Heriberto Valencia MD LAB BLOOD ORDERABLES Final Result [facility] [place] [address] * (ABNORMAL) Differential, auto (02/22/2024 8:41 PM COLD WATER MACHINE OPERATOR) Pathologist [facility] [place] Neutrophil abs 8.7(H) 1.5 - 6.5 K/cumm Imm gran abs 0.1 0.0 - 0.1 K/cumm [facility] Lymphocyte abs 1.5 0.8 - 3.3 K/cumm [facility] Monocyte abs 0.6 0.2 - 0.8 K/cumm [facility] Eosinophil abs 0.1 0.0 - 0.5 K/cumm [facility] Basophil abs 0.0 0.0 - 0.1 K/cumm [facility] Neutrophil pct 79.7 % [facility] Comment: Interpretive Data Percent cell count reference ranges are not reported, since discordance with absolute values may lead to misinterpretation of CBC data. Current Interpretive Data was last revised on 2017. Imm gran pct 0.9 % [facility] Comment: Interpretive Data Percent cell count reference ranges are not reported, since discordance with absolute values may lead to misinterpretation of CBC data. Current Interpretive Data was last revised on 2017. Lymphocyte pct 13.4 % [facility] Comment: Interpretive Data Percent cell count reference ranges are not reported, since discordance with absolute values may lead to misinterpretation of CBC data. Current Interpretive Data was last revised on 2017. Monocyte pct 5.2 % [facility] Comment: Interpretive Data Percent cell count reference ranges are not reported, since discordance with absolute values may lead to misinterpretation of CBC data. Current Interpretive Data was last revised on 2017. Eosinophil pct 0.5 % [facility] Comment: Interpretive Data Percent cell count reference ranges are not reported, since discordance with absolute values may lead to misinterpretation of CBC data. Current Interpretive Data was last revised on 2017. Basophil pct 0.3 % [facility] Comment: Interpretive Data Percent cell count reference ranges are not reported, since discordance with absolute values may lead to misinterpretation of CBC data. Current Interpretive Data was last revised on 2017. Blood 02/22/2024 8:41 PM COLD WATER MACHINE OPERATOR 02/22/2024 8:48 PM COLD WATER MACHINE OPERATOR us Heriberto Valencia MD LAB BLOOD ORDERABLES Final Result [facility] Department [place] [address] * (ABNORMAL) CBC with auto differential (02/22/2024 8:41 PM COLD WATER MACHINE OPERATOR) WBC 10.9(H) 3.8 - 9.9 K/cumm Hgb 10.1(L) 11.9 - 15.5 g/dL [facility] Hct 33.1(L) 35.6 - 45.5 % [facility] Plt 217 150 - 400 K/cumm [facility] MPV 10.2 9.1 - 12.3 fL [facility] RBC 3.96 3.90 - 5.20 M/cumm [facility] MCV 83.6 81.3 - 96.4 fL [facility] MCH 25.5(L) 27.1 - 33.3 pg [facility] MCHC 30.5(L) 32.3 - 35.7 g/dL [facility] RDW CV 19.0(H) 11.1 - 14.9 % [facility] RDW SD 57.6(H) 35.7 - 48.1 fL [facility] NRBC abs 0.02(H) 0.00 - 0.01 K/cumm [facility] Blood 02/22/2024 8:41 PM COLD WATER MACHINE OPERATOR 02/22/2024 8:48 PM COLD WATER MACHINE OPERATOR us Chester Cifuentes MD LAB BLOOD ORDERABLES Final R esult [facility] [place] [address] * (ABNORMAL) Comprehensive metabolic panel (02/22/2024 8:41 PM COLD WATER MACHINE OPERATOR) Sodium 137 135 - 145 mmol/L Potassium, pl 4.5 3.3 - 4.9 mmol/L [facility] Chloride 105 97 - 110 mmol/L [facility] CO2 18(L) 22 - 32 mmol/L [facility] Anion gap 14 2 - 15 mmol/L [facility] BUN 38(H) 6 - 25 mg/dL [facility] Creatinine 2.76(H) 0.60 - 1.10 mg/dL [facility] Glucose 67(L) 70 - 199 mg/dL [facility] Comment: Interpretive Data Fasting glucose >/= 126 [...] Calcium 10.8(H) 8.5 - 10.3 mg/dL [facility] Bilirubin, total 0.5 0.1 - 1.2 mg/dL [facility] Protein, pl 9.2(H) 6.5 - 8.5 g/dL [facility] Albumin 2.4(L) 3.5 - 5.0 g/dL [facility] Alk phos 180(H) 40 - 130 Units/L [facility] ALT 15 7 - 45 Units/L [facility] AST 25 10 - 45 Units/L [facility] Blood 02/22/2024 8:41 PM COLD WATER MACHINE OPERATOR 02/22/2024 8:49 PM COLD WATER MACHINE OPERATOR us Chester Cifuentes MD LAB BLOOD ORDERABLES Final R esult [facility] [place] [address] * XR Chest PA Lateral 2 Views (02/22/2024 6:18 PM COLD WATER MACHINE OPERATOR) Anatomical Region Laterality Modality Body, Chest N/A Computed Radiogr aphy 02/22/2024 6:22 PM COLD WATER MACHINE OPERATOR Impressions 02/22/2024 6:30 PM COLD WATER MACHINE OPERATOR Comparison made to chest radiograph dated 01/24/2024. [...] Gifty Saleem M.D. Narrative 02/22/2024 6:30 PM COLD WATER MACHINE OPERATOR EXAMINATION: 2 view chest radiograph Procedure Note [...] lt * ECG 12-LEAD (02/22/2024 5:23 PM COLD WATER MACHINE OPERATOR) Narrative [facility] - 02/22/2024 5:23 PM COLD WATER MACHINE OPERATOR Dakota Melchor MD 02/22/2024 5:25 PM ECG [...] ECG ORDERABLES Final Result Performing Organization Address [facility] Co de Phone Number [facility] * CS GLUCOSE (02/14/2024 4:45 AM COLD WATER MACHINE OPERATOR) Glucose 70 70 - 199 mg/dL [facility] Comment: Interpretive Data Fasting glucose >/= 126 [...] was last revised 2022. Testing performed by: [facility], [address] [facility], [place]., [address] Blood 02/14/2024 4:45 AM COLD WATER MACHINE OPERATOR 02/14/2024 7:13 AM COLD WATER MACHINE OPERATOR us Nettie Reyes NP LAB BLOOD ORDERABLES Final Result Performing Organization Address [facility] de Phone Number [facility] [place] [address] * (ABNORMAL) eGFR (02/14/2024 4:45 AM COLD WATER MACHINE OPERATOR) eGFR 37(L) >=60 mL/min/1. 73 m2 [facility] Comment: Interpretive Data Reference Interval Normal [...] was last reviewed 2020. Testing performed by: [facility], [address] [place] [address]., [address] Blood 02/14/2024 4:45 AM COLD WATER MACHINE OPERATOR 02/14/2024 7:40 AM COLD WATER MACHINE OPERATOR Nettie Reyes ENVIRONMENTAL ECONOMIST LAB BLOOD ORDERABLES Final Result [facility] [place] [address] * Differential, auto (02/14/2024 4:45 AM COLD WATER MACHINE OPERATOR) Neutrophil abs 2.2 1.5 - 6.5 K/cumm [facility] Comment:Testing performed by : [facility], [address] [place] [address]., [address] Imm gran abs 0.0 0.0 - 0.1 K/cumm [facility] Comment:Testing performed by : [facility], [address] [place]., [address] Lymphocyte abs 1.3 0.8 - 3.3 K/cumm [facility] Comment:Testing performed by : [facility], [address] [place]., [address] Monocyte abs 0.7 0.2 - 0.8 K/cumm [facility] Comment:Testing performed by : [facility], [address] [place]., [address] Eosinophil abs 0.2 0.0 - 0.5 K/cumm [facility] Comment:Testing performed by : [facility], [address] [place]., [address] Basophil abs 0.0 0.0 - 0.1 K/cumm [facility] Comment:Testing performed by : [facility], [address] [place]., [address] Neutrophil pct 49.5 % [facility] Comment: Interpretive Data Percent cell count reference ranges are not reported, since discordance with absolute values may lead to misinterpretation of CBC data. Current Interpretive Data was last revised on 2017. Testing performed by: [facility], [address] [place]., [address] Imm gran pct 0.5 % [facility] Comment: Interpretive Data Percent cell count reference ranges are not reported, since discordance with absolute values may lead to misinterpretation of CBC data. Current Interpretive Data was last revised on 2017. Testing performed by: [facility], [address] [place]., [address] Lymphocyte pct 30.4 % [facility] Comment: Interpretive Data Percent cell count reference ranges are not reported, since discordance with absolute values may lead to misinterpretation of CBC data. Current Interpretive Data was last revised on 2017. Testing performed by: [facility], [address] [place]., [address] Monocyte pct 15.4 % [facility] Comment: Interpretive Data Percent cell count reference ranges are not reported, since discordance with absolute values may lead to misinterpretation of CBC data. Current Interpretive Data was last revised on 2017. Testing performed by: [facility], [address] [place] [address] Eosinophil pct 3.7 % [facility] Comment: Interpretive Data Percent cell count reference ranges are not reported, since discordance with absolute values may lead to misinterpretation of CBC data. Current Interpretive Data was last revised on 2017. Testing performed by: [facility], [address] [place] [address] Basophil pct 0.5 % [facility] Comment: Interpretive Data Percent cell count reference ranges are not reported, since discordance with absolute values may lead to misinterpretation of CBC data. Current Interpretive Data was last revised on 2017. Testing performed by: [facility], [address] [place]., [address] Blood 02/14/2024 4:45 AM COLD WATER MACHINE OPERATOR 02/14/2024 7:13 AM COLD WATER MACHINE OPERATOR Nettie Reyes NP LAB BLOOD ORDERABLES Final Result [facility] [place] [address] * (ABNORMAL) Comprehensive metabolic panel, without glucose (Outreach) (02/14/2024 4:45 AM COLD WATER MACHINE OPERATOR) Sodium 141 135 - 145 mmol/L [facility] Comment:Testing performed by : [facility], [address] [place]., [address] Potassium, pl 4.0 3.3 - 4.9 mmol/L [facility] Comment:Testing performed by : [facility], [address] [place] [address] Chloride 112(H) 97 - 110 mmol/L [facility] Comment:Testing performed by : [facility], [address] [place] [address] CO2 20(L) 22 - 32 mmol/L [facility] Comment:Testing performed by : [facility], [address] [place] [address] Anion gap 9 2 - 15 mmol/L [facility] Comment:Testing performed by : [facility], [address] [facility] [place] [address] BUN 13 6 - 25 mg/dL [facility] Comment:Testing performed by : [facility], [address] [facility], [address] Creatinine 1.43(H) 0.60 - 1.10 mg/dL [facility] Comment:Testing performed by : [facility], [address] [facility], [address] Calcium 9.6 8.5 - 10.3 mg/dL [facility] Comment:Testing performed by : [facility], [address] [facility], [address] Protein, pl 7.0 6.5 - 8.5 g/dL [facility] Comment:Testing performed by : [facility], [address] [facility], [address] Albumin 2.2(L) 3.5 - 5.0 g/dL [facility] Comment:Testing performed by : [facility], [address] [facility], [address] Bilirubin, total 0.3 0.1 - 1.2 mg/dL [facility] Comment:Testing performed by : [facility], [address] [facility], [address] Alk phos 126 40 - 130 Units/L [facility] Comment:Testing performed by : [facility], [address] [place] [address], [address] AST 18 10 - 45 Units/L [facility] Comment:Testing performed by : [facility], [address] [place] [address], [address] ALT 16 7 - 45 Units/L [facility] Comment:Testing performed by : [facility], [address] [place] [address], [address] Blood 02/14/2024 4:45 AM COLD WATER MACHINE OPERATOR 02/14/2024 7:13 AM COLD WATER MACHINE OPERATOR Nettie Reyes NP LAB BLOOD ORDERABLES Final Result [facility] [place] [address] * (ABNORMAL) CBC with auto differential (02/14/2024 4:45 AM COLD WATER MACHINE OPERATOR) WBC 4.3 3.8 - 9.9 K/cumm [facility] Comment:Testing performed by : [facility], [address] [facility], [address] Hgb 7.4(L) 11.9 - 15.5 g/dL [facility] Comment:Testing performed by : [facility], [address] [facility], [address] Hct 24.1(L) 35.6 - 45.5 % [facility] Comment:Testing performed by : [facility], [address] [facility], [address] Plt 149(L) 150 - 400 K/cumm [facility] Comment:Testing performed by : [facility], [address] [facility], [address] MPV 9.6 9.1 - 12.3 fL [facility] Comment:Testing performed by : [facility], [address] [facility], [address] RBC 2.86(L) 3.90 - 5.20 M/cumm [facility] Comment:Testing performed by : [facility], [address] [place] [address], [address] MCV 84.3 81.3 - 96.4 fL [facility] Comment:Testing performed by : [facility] System, [address] [place] [address], [address] MCH 25.9(L) 27.1 - 33.3 pg [facility] Comment:Testing performed by : [facility], [address] [place] [address], [address] MCHC 30.7(L) 32.3 - 35.7 g/dL [facility] Comment:Testing performed by : [facility], [address] [place]., [address] RDW CV 18.3(H) 11.1 - 14.9 % [facility] Comment:Testing performed by : [facility], [address] [facility], [address] RDW SD 55.6(H) 35.7 - 48.1 fL [facility] Comment:Testing performed by : [facility], [address] [facility], [address] NRBC abs 0.00 0.00 - 0.01 K/cumm [facility] Comment:Testing performed by : [facility], [address] [facility], [address] Blood 02/14/2024 4:45 AM COLD WATER MACHINE OPERATOR 02/14/2024 7:13 AM COLD WATER MACHINE OPERATOR Nettie Reyes ENVIRONMENTAL ECONOMIST LAB BLOOD ORDERABLES Final Result [facility] One [facility] [place] [address] * (ABNORMAL) CBC without differential (02/14/2024 4:45 AM COLD WATER MACHINE OPERATOR) WBC 4.3 3.8 - 9.9 K/cumm [facility] Comment:Testing performed by : [facility], [address] [place]., [address] Hgb 7.4(L) 11.9 - 15.5 g/dL [facility] Comment:Testing performed by : [facility], [address] [facility], [address] Hct 24.1(L) 35.6 - 45.5 % [facility] Comment:Testing performed by : [facility], [address] [facility], [address] Plt 149(L) 150 - 400 K/cumm [facility] Comment:Testing performed by : [facility], [address] [facility], [address] MPV 9.6 9.1 - 12.3 fL [facility] Comment:Testing performed by : [facility], [address] [facility], [address] RBC 2.86(L) 3.90 - 5.20 M/cumm [facility] Comment:Testing performed by : [facility], [address] [facility], [address] MCV 84.3 81.3 - 96.4 fL [facility] Comment:Testing performed by : [facility], [address] [facility], [address] MCH 25.9(L) 27.1 - 33.3 pg [facility] Comment:Testing performed by : [facility], [address] [facility], [address] MCHC 30.7(L) 32.3 - 35.7 g/dL [facility] Comment:Testing performed by : [facility], [address] [facility], [address] RDW CV 18.3(H) 11.1 - 14.9 % [facility] Comment:Testing performed by : [facility], [address] [place] [address], [address] RDW SD 55.6(H) 35.7 - 48.1 fL [facility] Comment:Testing performed by : [facility], [address] [facility], [address] NRBC abs 0.00 0.00 - 0.01 K/cumm [facility] Comment:Testing performed by : [facility], [address] [facility], [address] Blood 02/14/2024 4:45 AM COLD WATER MACHINE OPERATOR 02/14/2024 7:13 AM COLD WATER MACHINE OPERATOR us Nettie Reyes ENVIRONMENTAL ECONOMIST LAB BLOOD ORDERABLES Final Result [facility]ENT [facility] Department [place] [address] * IR Inject Abscess Catheter (02/11/2024 11:15 AM COLD WATER MACHINE OPERATOR) Anatomical Region Laterality Modality Body N/A Radio Fluoroscop y 02/11/2024 11:2 5 AM COLD WATER MACHINE OPERATOR Impressions 02/11/2024 5:00 PM COLD WATER MACHINE OPERATOR Improving collection. Catheter was removed. PLAN: No further follow-up with interventional radiology required. If questions arise, please contact us by calling [phone]. Dictated by: Maribel Chairez M.D. The radiology attending physician has personally reviewed this study, and had reviewed and/or edited this written report and agrees with it. Electronically signed by: Mio Desai M.D. Narrative 02/11/2024 5:00 PM COLD WATER MACHINE OPERATOR EXAMINATION: DRAINAGE CATHETER EVALUATION AND REMOVAL HISTORY: [...] procedure. TECHNIQUE: Prior to beginning the procedure, [place] Protocol was used to confirm the patient's identity and planned procedure. Fluoroscopy time has been recorded in the electronic medical record. After obtaining a quarter seamer image, the catheter was injected with dilute [...] procedure. TECHNIQUE: Prior to beginning the procedure, [place] Protocol was used to confirm the patient's identity and planned procedure. Fluoroscopy time has been recorded in the electronic medical record. After obtaining a quarter seamer image, the catheter was injected with dilute [...] questions arise, please contact us by calling [phone]. Dictated by: Maribel Chairez M.D. The radiology attending physician has personally reviewed this study, and had reviewed and/or edited this written report and agrees with it. Electronically signed by: Mio Desai M.D. Romy DAVIS IMG IR PROCEDURES Final Result * CS GLUCOSE (02/10/2024 6:41 AM COLD WATER MACHINE OPERATOR) Glucose 78 70 - 199 mg/dL [facility] Comment: Interpretive Data Fasting glucose >/= 126 [...] was last revised 2022. Testing performed by: [facility], [address] [place] [address] Blood 02/10/2024 6:41 AM COLD WATER MACHINE OPERATOR 02/10/2024 12:21 PM COLD WATER MACHINE OPERATOR [facility] LAB BLOOD ORDERABLES Final Resul t Performing Organization Address [facility] de Phone Number [facility] [place] [address] * (ABNORMAL) eGFR (02/10/2024 6:41 AM COLD WATER MACHINE OPERATOR) eGFR 41(L) >=60 mL/min/1. 73 m2 [facility] Comment: Interpretive Data Reference Interval Normal >/= [...] was last reviewed 2020. Testing performed by: [facility], [address] [place]., [address] Blood 02/10/2024 6:41 AM COLD WATER MACHINE OPERATOR 02/10/2024 12:26 PM COLD WATER MACHINE OPERATOR Medicine LAB BLOOD ORDERABLES Final Resul t Performing Organization Address [facility] Co de Phone Number [facility] [place] [address] * Differential, auto (02/10/2024 6:41 AM COLD WATER MACHINE OPERATOR) Neutrophil abs 2.6 1.5 - 6.5 K/cumm [facility] Comment:Testing performed by : [facility], [address] [place] [address]., [address] Imm gran abs 0.0 0.0 - 0.1 K/cumm [facility] Comment:Testing performed by : [facility], [address] [place] [address], [address] Lymphocyte abs 1.0 0.8 - 3.3 K/cumm [facility] Comment:Testing performed by : [facility], [address] [facility], [address] Monocyte abs 0.8 0.2 - 0.8 K/cumm [facility] Comment:Testing performed by : [facility], [address] [place] [address]., [address] Eosinophil abs 0.2 0.0 - 0.5 K/cumm [facility] Comment:Testing performed by : [facility], [address] [place] [address]., [address] Basophil abs 0.0 0.0 - 0.1 K/cumm [facility] Comment:Testing performed by : [facility], [address] [place] [address]., [address] Neutrophil pct 56.8 % [facility] Comment: Interpretive Data Percent cell count reference ranges are not reported, since discordance with absolute values may lead to misinterpretation of CBC data. Current Interpretive Data was last revised on 2017. Testing performed by: [facility], [address] [place] [address]., [address] Imm gran pct 0.7 % [facility] Comment: Interpretive Data Percent cell count reference ranges are not reported, since discordance with absolute values may lead to misinterpretation of CBC data. Current Interpretive Data was last revised on 2017. Testing performed by: [facility], [address] [place] [address] Lymphocyte pct 21.7 % [facility] NUGENT Comment: Interpretive Data Percent cell count reference ranges are not reported, since discordance with absolute values may lead to misinterpretation of CBC data. Current Interpretive Data was last revised on 2017. Testing performed by: [facility], [address] [place]., [address] Monocyte pct 17.1 % [facility] N[facility] Comment: Interpretive Data Percent cell count reference ranges are not reported, since discordance with absolute values may lead to misinterpretation of CBC data. Current Interpretive Data was last revised on 2017. Testing performed by: [facility], [address] [place] [address] Eosinophil pct 3.3 % [facility] NUG[facility] Comment: Interpretive Data Percent cell count reference ranges are not reported, since discordance with absolute values may lead to misinterpretation of CBC data. Current Interpretive Data was last revised on 2017. Testing performed by: [facility], [address] [place] [address] Basophil pct 0.4 % [facility] NUGENT Comment: Interpretive Data Percent cell count reference ranges are not reported, since discordance with absolute values may lead to misinterpretation of CBC data. Current Interpretive Data was last revised on 2017. Testing performed by: [facility], [address] [place] [address] Blood 02/10/2024 6:41 AM COLD WATER MACHINE OPERATOR 02/10/2024 12:22 PM COLD WATER MACHINE OPERATOR us Medicine LAB BLOOD ORDERABLES Final Resul t JEAN-PIERRE NUGENT One [facility] [place] [address] * (ABNORMAL) Comprehensive metabolic panel, without glucose (Outreach) (02/10/2024 6:41 AM COLD WATER MACHINE OPERATOR) Sodium 139 135 - 145 mmol/L JEAN-PIERRE ZALDIVAR Comment:Testing performed by : [facility], 1 [facility], [address] Potassium, pl 3.7 3.3 - 4.9 mmol/L [facility] Comment:Testing performed by : [facility], [address] [facility], [address] Chloride 110 97 - 110 mmol/L [facility] Comment:Testing performed by : [facility], [address] [facility], [address] CO2 22 22 - 32 mmol/L [facility] Comment:Testing performed by : [facility], [address] [facility], [address] Anion gap 7 2 - 15 mmol/L [facility] Comment:Testing performed by : [facility], [address] [facility], [address] BUN 10 6 - 25 mg/dL [facility] Comment:Testing performed by : [facility], [address] [facility], [address] Creatinine 1.31(H) 0.60 - 1.10 mg/dL [facility] Comment:Testing performed by : [facility], [address] [facility], [address] Calcium 9.6 8.5 - 10.3 mg/dL [facility] Comment:Testing performed by : [facility], [address] [facility], [address] Protein, pl 7.2 6.5 - 8.5 g/dL [facility] Comment:Testing performed by : [facility], [address] [facility], [address] Albumin 2.3(L) 3.5 - 5.0 g/dL [facility] Comment:Testing performed by : [facility], [address] [facility], [address] Bilirubin, total 0.3 0.1 - 1.2 mg/dL [facility] Comment:Testing performed by : [facility], [address] [facility], [address] Alk phos 127 40 - 130 Units/L [facility] Comment:Testing performed by : [facility], [address] [facility], [address] AST 24 10 - 45 Units/L [facility] Comment:Testing performed by : [facility], [address] [facility], [address] ALT 22 7 - 45 Units/L [facility] Comment:Testing performed by : [facility], [address] [facility], [address] Blood 02/10/2024 6:41 AM COLD WATER MACHINE OPERATOR 02/10/2024 12:21 PM COLD WATER MACHINE OPERATOR Medicine LAB BLOOD ORDERABLES Final Resul t [facility] One [facility] Department [place] [address] * (ABNORMAL) CBC with auto differential (02/10/2024 6:41 AM COLD WATER MACHINE OPERATOR) WBC 4.5 3.8 - 9.9 K/cumm [facility] Comment:Testing performed by : [facility], [address] [facility], [address] Hgb 7.6(L) 11.9 - 15.5 g/dL [facility] Comment:Testing performed by : [facility], [address] [facility], [address] Hct 24.9(L) 35.6 - 45.5 % [facility] Comment:Testing performed by : [facility], [address] [facility], [address] Plt 180 150 - 400 K/cumm [facility] Comment:Testing performed by : [facility], [address] [place] [address], [address] MPV 10.7 9.1 - 12.3 fL [facility] Comment:Testing performed by : [facility], [address] [place] [address] RBC 2.89(L) 3.90 - 5.20 M/cumm [facility] Comment:Testing performed by : [facility], [address] [facility], [address] MCV 86.2 81.3 - 96.4 fL [facility] Comment:Testing performed by : [facility], [address] [facility], [address] MCH 26.3(L) 27.1 - 33.3 pg [facility] Comment:Testing performed by : [facility], [address] [facility], [address] MCHC 30.5(L) 32.3 - 35.7 g/dL [facility] Comment:Testing performed by : [facility], [address] [facility], [address] RDW CV 18.6(H) 11.1 - 14.9 % [facility] Comment:Testing performed by : [facility], [address] [facility], [address] RDW SD 58.3(H) 35.7 - 48.1 fL [facility] Comment:Testing performed by : [facility], [address] [facility], [address] NRBC abs 0.00 0.00 - 0.01 K/cumm [facility] Comment:Testing performed by : [facility], [address] [facility], [address] Blood 02/10/2024 6:41 AM COLD WATER MACHINE OPERATOR 02/10/2024 12:22 PM COLD WATER MACHINE OPERATOR Medicine LAB BLOOD ORDERABLES Final Resul t [facility] One [facility] [place] [address] * CS GLUCOSE (02/07/2024 5:00 AM COLD WATER MACHINE OPERATOR) Glucose 102 70 - 199 mg/dL [facility] Comment: Interpretive Data Fasting glucose >/= [...] was last revised 2022. Testing performed by: [facility], 1 [facility], [place]., [address] Blood 02/07/2024 5:00 AM COLD WATER MACHINE OPERATOR 02/07/2024 7:27 AM COLD WATER MACHINE OPERATOR Nettie Reyes ENVIRONMENTAL ECONOMIST LAB BLOOD ORDERABLES Final Result [facility] One [facility] [place] [address] * (ABNORMAL) eGFR (02/07/2024 5:00 AM COLD WATER MACHINE OPERATOR) eGFR 49(L) >=60 mL/min/1. 73 m2 [facility] Comment: Interpretive Data Reference Interval Normal [...] was last reviewed 2020. Testing performed by: [facility], [address] [place] [address] Blood 02/07/2024 5:00 AM COLD WATER MACHINE OPERATOR 02/07/2024 7:27 AM COLD WATER MACHINE OPERATOR Nettie Reyes ENVIRONMENTAL ECONOMIST LAB BLOOD ORDERABLES Final Result [facility] One [facility] [place] [address] * Differential, auto (02/07/2024 5:00 AM COLD WATER MACHINE OPERATOR) Neutrophil abs 4.3 1.5 - 6.5 K/cumm [facility] Comment:Testing performed by : [facility], [address] [place] [address]., [address] Imm gran abs 0.1 0.0 - 0.1 K/cumm [facility] Comment:Testing performed by : [facility], [address] [place] [address]., [address] Lymphocyte abs 0.9 0.8 - 3.3 K/cumm [facility] Comment:Testing performed by : [facility], [address] [place] [address]., [address] Monocyte abs 0.7 0.2 - 0.8 K/cumm [facility] Comment:Testing performed by : [facility], [address] [place] [address]., [address] Eosinophil abs 0.1 0.0 - 0.5 K/cumm [facility] Comment:Testing performed by : [facility], [address] [place] [address]., [address] Basophil abs 0.0 0.0 - 0.1 K/cumm [facility] Comment:Testing performed by : [facility], [address] [place] [address] Neutrophil pct 70.3 % [facility] Comment: Interpretive Data Percent cell count reference ranges are not reported, since discordance with absolute values may lead to misinterpretation of CBC data. Current Interpretive Data was last revised on 2017. Testing performed by: [facility], [address] [place] [address] Imm gran pct 1.0 % [facility] Comment: Interpretive Data Percent cell count reference ranges are not reported, since discordance with absolute values may lead to misinterpretation of CBC data. Current Interpretive Data was last revised on 2017. Testing performed by: [facility], [address] [place] [address] Lymphocyte pct 15.0 % [facility] Comment: Interpretive Data Percent cell count reference ranges are not reported, since discordance with absolute values may lead to misinterpretation of CBC data. Current Interpretive Data was last revised on 2017. Testing performed by: [facility], [address] [place] [address] Monocyte pct 11.3 % [facility] Comment: Interpretive Data Percent cell count reference ranges are not reported, since discordance with absolute values may lead to misinterpretation of CBC data. Current Interpretive Data was last revised on 2017. Testing performed by: [facility], [address] [place] [address]., [address] Eosinophil pct 2.1 % [facility] Comment: Interpretive Data Percent cell count reference ranges are not reported, since discordance with absolute values may lead to misinterpretation of CBC data. Current Interpretive Data was last revised on 2017. Testing performed by: [facility], [address] [place] [address] Basophil pct 0.3 % [facility] Comment: Interpretive Data Percent cell count reference ranges are not reported, since discordance with absolute values may lead to misinterpretation of CBC data. Current Interpretive Data was last revised on 2017. Testing performed by: [facility], [address] [place] [address] Blood 02/07/2024 5:0 0 AM COLD WATER MACHINE OPERATOR 02/07/2024 7:27 AM COLD WATER MACHINE OPERATOR Nettie Reyes ENVIRONMENTAL ECONOMIST LAB BLOOD ORDERABLES Final Result [facility] One [facility] [place] [address] * (ABNORMAL) Comprehensive metabolic panel, without glucose (Outreach) (02/07/2024 5:00 AM COLD WATER MACHINE OPERATOR) Sodium 140 135 - 145 mmol/L [facility] Comment:Testing performed by : [facility], [address] [facility], [address] Potassium, pl 3.9 3.3 - 4.9 mmol/L [facility] Comment:Testing performed by : [facility], [address] [place] [address], [address] Chloride 112(H) 97 - 110 mmol/L [facility] Comment:Testing performed by : [facility], [address] [facility], [address] CO2 20(L) 22 - 32 mmol/L [facility] Comment:Testing performed by : [facility], [address] [facility], [address] Anion gap 8 2 - 15 mmol/L [facility] Comment:Testing performed by : [facility], [address] [facility], [address] BUN 10 6 - 25 mg/dL [facility] Comment:Testing performed by : [facility], [address] [place] [address], [address] Creatinine 1.12(H) 0.60 - 1.10 mg/dL [facility] Comment:Testing performed by : [facility], [address] [facility], [address] Calcium 9.9 8.5 - 10.3 mg/dL [facility] Comment:Testing performed by : [facility], [address] [facility], [address] Protein, pl 7.2 6.5 - 8.5 g/dL [facility] Comment:Testing performed by : [facility], [address] [facility], [address] Albumin 2.4(L) 3.5 - 5.0 g/dL [facility] Comment:Testing performed by : [facility], [address] [facility], [address] Bilirubin, total 0.3 0.1 - 1.2 mg/dL [facility] Comment:Testing performed by : [facility], [address] [facility], [address] Alk phos 127 40 - 130 Units/L [facility] Comment:Testing performed by : [facility], [address] [facility], [address] AST 31 10 - 45 Units/L [facility] Comment:Testing performed by : [facility], [address] [place] [address], [address] ALT 28 7 - 45 Units/L [facility] Comment:Testing performed by : [facility], [address] [place] [address], [address] Blood 02/07/2024 5:00 AM COLD WATER MACHINE OPERATOR 02/07/2024 7:27 AM COLD WATER MACHINE OPERATOR Nettie Reyes ENVIRONMENTAL ECONOMIST LAB BLOOD ORDERABLES Final Result [facility] One [facility] [place] [address] * (ABNORMAL) CBC with auto differential (02/07/2024 5:00 AM COLD WATER MACHINE OPERATOR) WBC 6.1 3.8 - 9.9 K/cumm [facility] Comment:Testing performed by : [facility], [address] [facility], [address] Hgb 7.8(L) 11.9 - 15.5 g/dL [facility] Comment:Testing performed by : [facility], [address] [facility], [address] Hct 25.2(L) 35.6 - 45.5 % [facility] Comment:Testing performed by : [facility], [address] [facility], [address] Plt 191 150 - 400 K/cumm [facility] Comment:Testing performed by : [facility], [address] [facility], [address] MPV 9.6 9.1 - 12.3 fL [facility] Comment:Testing performed by : [facility], [address] [facility], [address] RBC 2.99(L) 3.90 - 5.20 M/cumm [facility] Comment:Testing performed by : [facility], [address] [facility], [address] MCV 84.3 81.3 - 96.4 fL [facility] Comment:Testing performed by : [facility], [address] [facility], [address] MCH 26.1(L) 27.1 - 33.3 pg [facility] Comment:Testing performed by : [facility], [address] [place] [address], [address] MCHC 31.0(L) 32.3 - 35.7 g/dL [facility] Comment:Testing performed by : [facility], [address] [facility], [address] RDW CV 18.7(H) 11.1 - 14.9 % [facility] Comment:Testing performed by : [facility], [address] [facility], [address] RDW SD 56.6(H) 35.7 - 48.1 fL [facility] Comment:Testing performed by : [facility], [address] [place] [address] NRBC abs 0.00 0.00 - 0.01 K/cumm [facility] Comment:Testing performed by : [facility], [address] [facility], [address] Blood 02/07/2024 5:00 AM COLD WATER MACHINE OPERATOR 02/07/2024 7:27 AM COLD WATER MACHINE OPERATOR Nettie Reyes ENVIRONMENTAL ECONOMIST LAB BLOOD ORDERABLES Final Result [facility] Department [place] [address] * (ABNORMAL) CBC without differential (02/07/2024 5:00 AM COLD WATER MACHINE OPERATOR) WBC 6.1 3.8 - 9.9 K/cumm [facility] Comment:Testing performed by : [facility], [address] [place] [address], [id number] Hgb 7.8(L) 11.9 - 15.5 g/dL [facility] Comment:Testing performed by : [facility], [address] [place] [address], [address] Hct 25.2(L) 35.6 - 45.5 % [facility] Comment:Testing performed by : [facility], [address] [place] [address], [id number] Plt 191 150 - 400 K/cumm [facility] Comment:Testing performed by : [facility], [address] [place] [address]., [id number] MPV 9.6 9.1 - 12.3 fL [facility] Comment:Testing performed by : [facility], [address] [place] [address], [id number] RBC 2.99(L) 3.90 - 5.20 M/cumm [facility] Comment:Testing performed by : [facility], [address] [place]., [address] MCV 84.3 81.3 - 96.4 fL [facility] Comment:Testing performed by : [facility], [address] [facility], [id number] MCH 26.1(L) 27.1 - 33.3 pg [facility] Comment:Testing performed by : [facility], [address] [facility], [address] MCHC 31.0(L) 32.3 - 35.7 g/dL [facility] Comment:Testing performed by : [facility], [address] [facility], [address] RDW CV 18.7(H) 11.1 - 14.9 % [facility] Comment:Testing performed by : [facility], [address] [facility], [address] RDW SD 56.6(H) 35.7 - 48.1 fL [facility] Comment:Testing performed by : [facility], [address] [facility], [address] NRBC abs 0.00 0.00 - 0.01 K/cumm [facility] Comment:Testing performed by : [facility], [address] [facility], [address] Blood 02/07/2024 5:00 AM COLD WATER MACHINE OPERATOR 02/07/2024 7:27 AM COLD WATER MACHINE OPERATOR us Nettie Reyes ENVIRONMENTAL ECONOMIST LAB BLOOD ORDERABLES Final Result 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 02/25/2024 Insurance MEDICARE [facility] Address: [address] [phone] [facility] [place] [id number] [facility] Advance Directives For more information, please contact: [phone] * Full Code (Latest Code Status on [...] 10:10 PM 01/15/2024 10:17 AM Care Teams Medical Data Entry Clerk Relationship Specialty Start Date End Date Leon Leslie MD PCP - General Family Practice 12/23/22 Elvie Drake MD Consulting Physician Medical Oncology 11/12/23 Migel Torres MD [phone] [place] [address] Surgeon Colon and Rectal Surgery 11/23/23
--- OUTSIDE RECORDS SUMMARY | 2024-05-06 21:22 | XMS_ITS | Clinical Summary ---
Author Organization [facility] Address [address] [place] [id number] Phone Care Team Providers Care Compression Molding Machine Tender Name Role Phone Gamal Morales Primary Care Provider [phone] Allergies Active Allergy Reactions Criticality Noted Date Comments Lisinopril Edema Medium 05/23/2020 Medications Medication Sig Dispensed Refills Start Date End Date Status Acetaminophen 500 MG capsule Take 1,000 mg by mouth 4 times daily 06/05/2018 Active alendronate (FOSAMAX) 70 MG tablet Take 70 mg by mouth 1 (one) time per week 04/11/2020 Active amLODIPine (NORVASC) 10 MG tablet 06/17/2020 Active aspirin EC 81 MG EC tablet Take 81 mg by mouth daily 08/30/2017 Active atorvastatin (LIPITOR) 40 MG tablet Take 40 mg by mouth 1 (one) time each day 04/11/2020 Active busPIRone (BUSPAR) 15 MG tablet Take 15 mg by mouth 2 (two) times a day 06/11/2020 Active dicyclomine (BENTYL) 20 MG tablet Take 20 mg by mouth 4 (four) times a day 05/17/2020 Active diphenhydrAMINE (Benadryl Allergy) 25 MG capsule Take 25 mg by mouth daily Active docusate sodium (COLACE) 100 MG capsule Take 100 mg by mouth Acti ve donepezil (ARICEPT) 10 MG tablet Take 10 mg by mouth 1 (one) time each day 04/17/2020 Active ergocalciferol (VITAMIN D2) 1.25 MG (15742 UT) capsule take 1 capsule ([id number]) by oral route every week 06/25/2014 Active fluticasone (FLONASE) 50 MCG/ACT nasal spray Administer 2 sprays into affected nostril(s) 02/09/2019 Active HYDROcodone-acetamin ophen 10-325 MG per tablet TAKE 1 TABLET BY MOUTH FOUR TIMES A DAY NEEDED FOR PAIN 05/31/2020 Active losartan (COZAAR) 50 MG tablet Take 50 mg by mouth 1 (one) time each day 04/11/2020 Active metoprolol tartrate (LOPRESSOR) 25 MG tablet Take 25 mg by mouth 2 (two) times a day 04/11/2020 Active Multiple Vitamin (multivitamin) capsule Take 1 capsule by mouth daily Active pantoprazole (PROTONIX) 40 MG EC tablet Take 40 mg by mouth 1 (one) time each day 05/02/2020 Active KLOR-CON 20 MEQ CR tablet TAKE 2 TABLETS BY MOUTH EVERY MORNING CRUSHED 03/29/2020 Active Active Problems Problem Noted Date Diagnosed Date Nonspecific abnormal results of function study o f kidney 06/17/2020 Acute injury of kidney 10/20/2018 Overview (05/23/2020): Last Assessment & Plan: Cr improved 10/21 - patient reports good PO intake yesterday. Did get some IV fluids. PETE likely in setting of hypovolemia secondary to decreased PO intake. Other considerations include Vanc-induced PETE, ATN in setting of infection - Trial 0.5L NS today - may consider Lasix or patiromer if K remains elevated or pt becomes symptomatic - Monitor BMP - Consider de-escalating Vanc Gastroesophageal reflux disease 10/18/2018 Overview (05/23/2020): Last Assessment & Plan: - Hold home protonix 40mg while on Famotidine Tracheostomy present 10/17/2018 Overview (05/23/2020): Last Assessment & Plan: Tracheostomy change without difficulty today. Continue routine trach changes. 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 - continue on home aspirin, statin - low sodium diet Essential hypertension 08/30/2017 Overview (05/23/2020): Last Assessment & Plan: Uncertain baseline. - continue amlodipine, metoprolol - holding losartan Alzheimer's disease 11/14/2012 Overview (05/23/2020): Last Assessment & Plan: Patient reportedly able to do all iADLs at home with high functional baseline. - Continue home donepezil Anemia 11/11/2012 Malignant neoplasm of breast (female), unspecifi ed 12/31/2010 Overview (05/23/2020): Description: Malignant Female Breast Neoplasm, NOS Smoker 03/31/2010 Overview (05/23/2020): Description: 06/11/11 Immunizations Name Administration Dates Next Due Influenza (IM) Preservative Free 01/23/2009 Influenza Split High Dose Preservative Free IM 1 03/08/2018,12/10/2017 [place] SARS-COV-2 VACCINATION 05/28/2020 Pneumococcal Polysaccharide 07/08/2007 Family History Medical History Relation Comments Kidney disease Neg Hx Social History Tobacco Use Types Packs/Day Years Used Date Smoking Tobacco: Former Smokeless Tobacco: Never Alcohol Use Standard Drinks/Week Comments Not Currently 0 (1 standard drink = 0.6 oz pur e alcohol) Sex and Gender Information Value Date Recorded Sex Assigned at Not on file Gender Identity Not on file Sexual Orientation Not on file Last Filed Vital Signs Vital Sign Reading Time Taken Comments Blood Pressure 124/70 06/19/2020 11:39 AM CDT Pulse 84 06/19/2020 11:39 AM CDT Temperature 36.6 C (97.9 F) 06/19/2020 11:39 AM CDT Respiratory Rate - - Oxygen Saturation - - Inhaled Oxygen Concentration - - Weight 64 kg (141 lb) 06/19/2020 11:39 AM CDT Height 149.9 cm (4' 11 ) 06/19/2020 11:39 AM CDT Body Mass Index 28.48 06/19/2020 11:39 AM CDT Plan of Treatment Health Maintenance Due Date Last Done Comments Pneumococcal PPSV23/PCV13 65 + Years / Low and Medium Risk (2 of 4 - PCV) 07/07/2008 07/08/2007 Influenza Vaccine (#1) 2023 01/23/2009 Care Teams Compression Molding Machine Tender Relationship Specialty Start Date End Date Gamal Morales DO [address] [place] [address] PCP - General Internal Medicine 04/03/20
[2024-05-06 22:00] VITALS: BP 151/60; PULSE 66; RESP 18; O2SAT 99
[2024-05-07 03:00] VITALS: BP 134/50; PULSE 67; RESP 19; O2SAT 97
[2024-05-07 06:00] VITALS: BP 150/79; PULSE 68; RESP 16; O2SAT 100
[2024-05-07 07:00] VITALS: BP 149/62; PULSE 84; RESP 20; O2SAT 98
[2024-05-07 08:00] VITALS: BP 108/76; PULSE 79; RESP 16; O2SAT 100
[2024-05-07 09:00] VITALS: BP 112/78; PULSE 80; RESP 16; O2SAT 100
== END 2024-05-07 09:05 ==
PROVIDERS: Emergency Provider Student in an Organized Health Care Education/Training Program; PCP Family Medicine
DX: J95.03 Malfunction of tracheostomy stoma (principal); G30.9 Alzheimer's disease, unspecified; F02.80 Dementia in other diseases classified elsewhere, unspecified severity, without behavioral disturbance, psychotic disturbance, mood disturbance, and anxiety; I25.2 Old myocardial infarction; I50.42 Chronic combined systolic (congestive) and diastolic (congestive) heart failure; I11.0 Hypertensive heart disease with heart failure; I25.10 Atherosclerotic heart disease of native coronary artery without angina pectoris; E78.5 Hyperlipidemia, unspecified; F41.9 Anxiety disorder, unspecified; F32.A Depression, unspecified; Z85.3 Personal history of malignant neoplasm of breast; Z85.038 Personal history of other malignant neoplasm of large intestine; Z87.891 Personal history of nicotine dependence; Z90.710 Acquired absence of both cervix and uterus; Z90.12 Acquired absence of left breast and nipple; Z79.82 Long term (current) use of aspirin; Z79.899 Other long term (current) drug therapy; Z79.02 Long term (current) use of antithrombotics/antiplatelets; Y83.3 Surgical operation with formation of external stoma as the cause of abnormal reaction of the patient, or of later complication, without mention of misadventure at the time of the procedure
CPT/HCPCS: 43762; 99282; 99283